=== PATIENT | female | born 1985 | race Caucasian/White ===

== ENCOUNTER 2022-09-08 09:10 | Emergency (ER) | payer MEDICAID, SELFPAY ==
--- NOTE | 2022-09-08 09:12 | ECG_ITS ---
Test Reason : racing heart Blood Pressure : / mmHG Vent. Rate : 072 BPM Atrial Rate : 072 BPM P-R Int : 136 ms QRS Dur : 076 ms QT Int : 398 ms P-R-T Axes : 016 005 052 degrees QTc Int : 435 ms Normal sinus rhythm with sinus arrhythmia Normal ECG When compared with ECG of 22-OCT-2011 18:38, No significant change was found Referred By: Generic ED Physician Electronically Signed By:ZAFAR WU
[2022-09-08 09:21] VITALS: BP 122/74; PULSE 74; RESP 16; TEMP 35.9; O2SAT 98; BMI 27.5
--- NOTE | 2022-09-08 09:33 | ED_ITS ---
HPI - General Adult General Chief complaint: Nausea/Vomiting/Diarrhea Stated complaint: Nausea/Vomiting/Fast heart rate Time Seen by Provider: 09/08/22 09:29 Source: patient Mode of arrival: ambulatory Limitations: no limitations History of Present Illness HPI narrative: Patient is a 37 year old assigned female at with no reported medical history presenting to the emergency department today with nausea and vomiting. Patient states that since last night she has had nausea and vomiting. Patient denies any dizziness, lightheadedness, abdominal pain, fever, chills, blurry vision, double vision, loss of vision, chest pain, difficulty breathing, shortness of breath, back pain, night sweats, pain with urination, increased urinary frequency, increased urinary urgency, blood in her urine or stool, syncope or a near syncopal episode, recent trauma or falls, bowel incontinence, bladder incontinence, bowel retention, bladder retention, or any other complaints at this time. Onset (ago): hour(s) Severity: mild Severity scale (1-10): 2 Relieving factors: none Exacerbating factors: none Associated symptoms: nausea/vomiting Treatments prior to arrival: none Related Data Previous Rx's Medication Instructions Recorded ondansetron 4 mg disintegrating 4 mg PO Q8H 3 days #9 tabs 09/08/22 tablet Allergies Allergy/AdvReac Type Severity Reaction Status Date / Time hydromorphone [Dilaudid] Allergy Unknown hives Verified 05/31/18 00:00 ibuprofen [From MOTRIN] AdvReac Mild STOMACH Unverified 10/26/19 16:24 UPSET From DILAUDID Allergy Mild HIVES Uncoded 10/26/19 16:24 Motrin Allergy Unknown Uncoded 05/31/18 00:00 Review of Systems Constitutional: Constitutional: Reports no additional constitutional complaints, Denies chills, Denies fever(s) and Denies night sweats Eyes: Eyes: Reports no additional eye complaints, Denies blurry vision, Denies change in vision, Denies diplopia, Denies eye discharge, Denies loss of vision and Denies eye pain ENT: Denies dizziness Cardiovascular: Cardiovascular: Reports no additional cardiovascular complaints, Denies chest pain, Denies lightheadedness, Denies Loss of Consciousness and Denies dyspnea Respiratory: Respiratory: Reports no additional respiratory complaints and Denies dyspnea Gastrointestinal: Gastrointestinal: Reports no additional gastrointestinal complaints, Denies abdominal pain, Denies melena, Denies hematochezia, Denies c hange in bowel habits, Denies change in stool character, Reports nausea and Reports vomiting Genitourinary: Genitourinary: Denies hematuria, Denies urinary frequency, Denies dysuria, Denies urinary incontinence, Denies urinary hesitancy and Denies urinary urgency Musculoskeletal: Musculoskeletal: Reports no additional musculoskeletal complaints, Denies numbness and Denies tingling Neurologic: Denies dizziness, Denies loss of vision, Denies numbness and Denie s tingling Psychiatric: Psychiatric: Reports no additional psychiatric complaints Endocrine: Endocrine: Reports no additional endocrine complaints Hematologic/Lymphatic: Hematologic/Lymphatic: Reports no additional hematologic/lymphatic complaints Allergic/Immunologic: Allergic/Immunologic: Reports no additional allergic/immunologic complaints PMFSH Past Medical History Attestation statement: The following information was validated with the patient. Source: old records reviewed and nursing notes reviewed Social History Social History Alcohol intake: never Smoked in Last 30 Days: No Use of substances other than those prescribed or required for medical reasons: Yes Substance Use Type: Marijuana Last Used Substance: Days (ago) Advance Directives: No Advance Directives Information Provided: No Physical Exam ED Vital Signs: Vital Signs - 24 hr 09/08/22 09:21 09/08/22 10:41 Temperature 96.7 F L 98.5 F Pulse Rate 74 65 Respiratory Rate 16 14 Blood Pressure 122/74 124/79 Pulse Oximetry 98 100 Oxygen Delivery Method Room Air Room Air BMI result Body Mass Index 27.5 Const General: cooperative, no acute distress, alert and awake Nutritional Appearance: well nourished Orientation/consciousness: patient oriented x3 Limitations: no limitations [facility] Head: Yes normal to inspection and Yes atraumatic Ears: hearing grossly normal bilaterally and external ears normal General nose exam: Normal external nose present, no nasal discharge noted and no epistaxis Face and sinus: Yes normal facial exam, No abrasion and No laceration Mouth: Normal oral and palatal mucosa present, no drooling and no muffled voice Eyes General: appearance normal, both eyes and all related structures Periorbital: periorbital findings normal Eyelids: Yes eyelids normal Conjunctivae: conjunctivae normal Pupils: Equal, round and reactive pupils present EOM: EOMs intact bilaterally Neck Neck: Yes normal visual inspection, Yes full ROM and Yes no lymphadenopathy Chest Chest palpation & inspection: normal inspection of the chest Resp Effort & Inspection: normal respiratory effort and able to speak in complete sentences Auscultation: clear to auscultation bilaterally Cardio Rate: regular rate Rhythm: regular rhythm GI Inspection: Yes normal to inspection Palpation (GI): Soft to palpation, not firm, nontender and no guarding Neuro General: patient oriented x3 and moves all extremities Cranial nerves: Yes Equal, round and reactive pupils present Cognition (Neuro): normal cognition Motor exam (neuro): 5/5 motor strength present throughout Sensory Exam: Normal double simultaneous stimulation for sensation Coordination: [id number] test normal Extrem General: Yes normal to inspection, Yes full ROM and Yes capillary refill normal Psych Appearance: grossly normal Mental Status: mental status grossly normal Affect: normal affect Attitude: cooperative Thought process: Normal thought process present Thought content: Normal thought content present Insight: Good insight present (Psych) Medications Administered Discontinued Medications Generic Name Dose Route Start Last Admin Trade Name Freq PRN Reason Stop Dose Admin Sodium Chloride 1,000 mls @ 999 mls/hr 09/08/22 09:45 09/08/22 11:16 Ns IV 09/08/22 10:45 Infused .Q1H1M KANDY Infusion Lorazepam 1 mg 09/08/22 09:59 09/08/22 10:06 Lorazepam 2 Mg/Ml Vial IVPUSH 09/08/22 10:00 1 mg ONCE ONE Administration Ondansetron HCl 4 mg 09/08/22 09:35 09/08/22 09:52 Ondansetron Hcl 4 Mg/2 Ml Vial IVPUSH 09/08/22 09:36 4 mg ONCE ONE Administration Medical Decision Making Medical Decision Making [facility] Narrative: Patient is a 37 year old assigned female at with no reported medical history presenting to the emergency department today with nausea and vomiting. Patient's physical exam was unremarkable. Patient's blood work was unremarkable. Patient's urine showed no acute process. I explained my physical exam findings as well as all test results to the patient. I answered all questions asked by the patient. Patient received IV fluids and Zofran which she stated helped her symptoms significantly. I stressed the importance of the patient taking her medication as prescribed. I stressed the importance of the patient following up with her primary care provider. I stressed the importance of the patient returning to the emergency department immediately if her symptoms were to worsen or if she were to develop any dizziness, shortness of breath, difficulty breathing, chest pain, blurry vision, loss of vision, nausea, vomiting, abdomi nal pain, fever, chills, back pain, or any other complaints. Patient verbalized agreement and understanding with this treatment plan and discharge. Differential Diagnosis Differential Diagnoses: The differential diagnosis associated with the presentation includes Nausea Vomiting Gastroenteritis Admission/Observation Consideration of admission/observation: Escalation of care including admission/observation considered Patient would have been admitted to the hospital had her work up had any findings where hospital admission was appropriate and her clinical presentation warranted hospital admission. Lab Data MDM Lab Attestation statement: I reviewed the patient's lab results. My interpretation of these studies and their corresponding values is that they are grossly normal. 09/08/22 09:51 09/08/22 09:51 Labs: Lab Results 09/08/22 09/08/22 09/08/22 Range/Units 09:45 09:51 09:51 WBC 12.0 H (4.8-10.8) X10*3/uL RBC 5.24 (4.20-5.50) X10*6/uL Hgb 13.7 (12.0-16.0) g/dl Hct 41.6 (37.0-47.0) % MCV 79.4 L (80.0-98.0) fL MCH 26.1 L (27.0-33.0) pg MCHC 32.9 (31.0-35.0) g/dl RDW 15.1 (11.0-16.0) % Plt Count 266 (160-400) X10*3/uL MPV 10.9 (9.4-12.3) fL Immature Gran % (Auto) 0.5 H (0.0-0.4) % Neut % (Auto) 75.1 H (45-73) % Lymph % (Auto) 19.2 L (20-40) % Spencer % (Auto) 4.6 (2-11) % Eos % (Auto) 0.2 (0-4) % Baso % (Auto) 0.4 (0-2) % Lymph # (Auto) 2.3 (1.2-4.9) X10*3/uL Spencer # (Auto) 0.6 (0.1-1.2) X10*3/uL Eos # (Auto) 0.0 (0.0-0.4) X10*3/uL Baso # (Auto) 0.1 (0.0-0.2) X10*3/uL Abs Immat Gran (auto) 0.06 H (0.00-0.03) X10*3/uL Absolute Neuts (auto) 9.0 H (2.0-8.3) x10*3/uL Absolute Nucleated RBC 0.000 (0.0-0.012) X10*3/uL Nucleated RBC % (auto) 0.0 (0.0-0.2) /100WBC Sodium 141 (135-145) mmol/L Potassium 3.9 (3.3-5.1) mmol/L Chloride 108 (96-108) mmol/L Carbon Dioxide 20 L (22-29) mmol/L Anion Gap 17 (12-20) BUN 10 (9-16) mg/dL Creatinine 0.76 (0.5-1.4) mg/dL Estim Creat Clear Calc 108.5 Estimated GFR > 60 Random Glucose 89 (60-115) mg/dL Calcium 9.5 (8.4-10.2) mg/dL Total Bilirubin 1.4 H (0.0-1.0) mg/dL AST 14 (5-31) U/L ALT 13 (0-31) U/L Alkaline Phosphatase 63 (39-117) U/L Total Protein 7.4 (6.5-8.0) g/dL Albumin 4.4 (3.5-5.0) g/dL Beta HCG, Quant < 2 mIU/mL Urine Color Urine Appearance Urine pH (5.0-9.0) Ur Specific [place] (1.005-1.025) Urine Protein (Neg-Trace) mg/dL Urine Glucose (UA) (Negative) mg/dL Urine Ketones (Negative) mg/dL Urine Blood (Negative) Urine Nitrite (Negative) Ur Leukocyte Esterase (Negative) Urine RBC (0-2) /HPF Urine WBC (0-5) /HPF Ur Squamous Epith Cells (0-2) /HPF Urine Bacteria (None Seen) Hyaline Casts (0-2) /LPF COVID-19 (JAGDEEP) Negative (Negative) COVID-19 Clin Com See Note 09/08/22 Range/Units 10:39 WBC (4.8-10.8) X10*3/uL RBC (4.20-5.50) X10*6/uL Hgb (12.0-16.0) g/dl Hct (37.0-47.0) % MCV (80.0-98.0) fL MCH (27.0-33.0) pg MCHC (31.0-35.0) g/dl RDW (11.0-16.0) % Plt Count (160-400) X10*3/uL MPV (9.4-12.3) fL Immature Gran % (Auto) (0.0-0.4) % Neut % (Auto) (45-73) % Lymph % (Auto) (20-40) % Spencer % (Auto) (2-11) % Eos % (Auto) (0-4) % Baso % (Auto) (0-2) % Lymph # (Auto) (1.2-4.9) X10*3/uL Spencer # (Auto) (0.1-1.2) X10*3/uL Eos # (Auto) (0.0-0.4) X10*3/uL Baso # (Auto) (0.0-0.2) X10*3/uL Abs Immat Gran (auto) (0.00-0.03) X10*3/uL Absolute Neuts (auto) (2.0-8.3) x10*3/uL Absolute Nucleated RBC (0.0-0.012) X10*3/uL Nucleated RBC % (auto) (0.0-0.2) /100WBC Sodium (135-145) mmol/L Potassium (3.3-5.1) mmol/L Chloride (96-108) mmol/L Carbon Dioxide (22-29) mmol/L Anion Gap (12-20) BUN (9-16) mg/dL Creatinine (0.5-1.4) mg/dL Estim Creat Clear Calc Estimated GFR Random Glucose (60-115) mg/dL Calcium (8.4-10.2) mg/dL Total Bilirubin (0.0-1.0) mg/dL AST (5-31) U/L ALT (0-31) U/L Alkaline Phosphatase (39-117) U/L Total Protein (6.5-8.0) g/dL Albumin (3.5-5.0) g/dL Beta HCG, Quant mIU/mL Urine Color Yellow Urine Appearance Clear Urine pH 7.0 (5.0-9.0) Ur Specific [place] 1.020 (1.005-1.025) Urine Protein 30 (1+) H (Neg-Trace) mg/dL Urine Glucose (UA) Negative (Negative) mg/dL Urine Ketones 80 (Negative) mg/dL Urine Blood Trace H (Negative) Urine Nitrite Negative (Negative) Ur Leukocyte Esterase Trace H (Negative) Urine RBC 11-20 H (0-2) /HPF Urine WBC 0-5 (0-5) /HPF Ur Squamous Epith Cells 0-2 (0-2) /HPF Urine Bacteria None Seen (None Seen) Hyaline Casts 0-2 (0-2) /LPF COVID-19 (JAGDEEP) (Negative) COVID-19 Clin Com Discharge Plan Discharge Clinical Impression: Gastroenteritis Patient Disposition: Home, Self-Care Instructions: Gastroenteritis (DC) Additional Instructions: Follow up with your primary care provider. Return to the emergency department immediately if your symptoms worsen or if you develop any dizziness, shortness of breath, difficulty breathing, chest pain, blurry vision, loss of vision, nausea, vomiting, abdominal pain, fever, chills, back pain, or any other complaints. Prescriptions: New ondansetron 4 mg tablet,disintegrating 4 mg PO Q8H 3 Days Qty: 9 0RF Referrals: [facility] Family [facility] [Provider Group] (Call to establish and follow up with a primary care provider. If you already have a primary care provider, please follow up with them.) [facility] [Provider Group] (Call to establish and follow up with a primary care provider. If you already have a primary care provider, please follow up with them.) [facility] Primary [facility] [Provider Group] (Call to establish and follow up with a primary care provider. If you already have a primary care provider, please follow up with them.) Interventions: ED Discharge Assessment Last Done: 09/08/22 11:24 Discharge Date/Time: 09/08/22 11:24 Print Language: Citizen Of [place]
[2022-09-08] MEDS: ondansetron HCL 4 MG/2 ML VIAL IVPUSH (09:52)
[2022-09-08] MEDS: 0.9 % Sodium Chloride 1,000 ML 999 ML IV (09:52)
--- NOTE | 2022-09-08 09:57 | PC.NURSE ---
pt a&ox3. respirations even and unlabored. abdomen soft non tender with hypoactive bowel sounds in all four quadrants. pt reports nausea since yesterday with three episodes of vomiting. denies vomiting currently. pt reports palpitations. pt normal sinus on tele. denies chest pains. pt reporting anxiety MD aware.
[2022-09-08 09:58] LABS: MANUAL DIFF FLAG NO
[2022-09-08 10:00] LABS: Basophils Absolute Auto 0.1 X10*3/uL (0.0-0.2); Basophils Percent Auto 0.4 % (0-2); Eosinophils Percent Auto 0.2 % (0-4); Hematocrit 41.6 % (37.0-47.0); Hemoglobin 13.7 g/dl (12.0-16.0); Imm Gran Abs Auto 0.06 X10*3/uL (0.00-0.03); Imm Gran Pct Auto 0.5 % (0.0-0.4); Lymphocytes Absolute Auto 2.3 X10*3/uL (1.2-4.9); Lymphocytes Percent Auto 19.2 % (20-40); Mean Corpuscular HGB Conc 32.9 g/dl (31.0-35.0); Mean Corpuscular Hemoglobin 26.1 pg (27.0-33.0); Mean Corpuscular Volume 79.4 fL (80.0-98.0); Mean Platelet Volume 10.9 fL (9.4-12.3); Monocytes Absolute Auto 0.6 X10*3/uL (0.1-1.2); Monocytes Percent Auto 4.6 % (2-11); Neutrophils Percent Auto 75.1 % (45-73); Platelet Count 266 X10*3/uL (160-400); Red Blood Count 5.24 X10*6/uL (4.20-5.50); Red Cell Distribution Width 15.1 % (11.0-16.0)
[2022-09-08] MEDS: LORazepam 2 MG/ML VIAL 1 MG IVPUSH (10:06)
[2022-09-08 10:13] LABS: COVID-19 Test Negative (Negative); IDNOW Serial# BCCEAD1C
[2022-09-08 10:35] LABS: Alanine Aminotransferase 13 U/L (0-31); Albumin Level 4.4 g/dL (3.5-5.0); Alkaline Phosphatase 63 U/L (39-117); Anion Gap 17 (12-20); Aspartate Amino Transferase 14 U/L (5-31); Bilirubin Total 1.4 mg/dL (0.0-1.0); Blood Urea Nitrogen 10 mg/dL (9-16); Calcium 9.5 mg/dL (8.4-10.2); Carbon Dioxide 20 mmol/L (22-29); Chloride 108 mmol/L (96-108); Creatinine Clr Calc Pharmacy 108.5; Estimated Glomerular Filt Rate > 60; Glucose Random 89 mg/dL (60-115); HCG Quantitative < 2 mIU/mL; Potassium 3.9 mmol/L (3.3-5.1); Sodium 141 mmol/L (135-145); Total Protein 7.4 g/dL (6.5-8.0)
[2022-09-08 10:41] VITALS: BP 124/79; PULSE 65; RESP 14; TEMP 36.9; O2SAT 100
[2022-09-08 11:06] LABS: Appearance Urine Clear; Color Urine Yellow; Glucose Urine UA Negative (Negative); Leukocyte Esterase Urine Trace (Negative); Nitrite Urine Negative (Negative); UMIC TRIGGER UACC YES; Urine Blood Trace (Negative); Urine Ketones 80 mg/dL (Negative); Urine Protein 30 (1+) mg/dL (Neg-Trace)
[2022-09-08 11:12] LABS: Bacteria Urine None Seen (None Seen); Hyaline Casts Urine 0-2 /LPF (0-2); Squamous Epithelial Cell Urine 0-2 /HPF (0-2); WBC Urine 0-5 /HPF (0-5)
== END 2022-09-08 11:24 | disposition home or self-care (01) ==
PROVIDERS: Physician Assistant Medical; Emergency Provider Emergency Medicine
DX: K52.9 Noninfective gastroenteritis and colitis, unspecified (principal); Z20.822 Contact with and (suspected) exposure to COVID-19; R11.2 Nausea with vomiting, unspecified
CPT/HCPCS: 36415; 80053; 81001; 81003; 84702; 85025; 87635; 93005; 96361; 96374; 96375; 99284; J2060; J2405

== ENCOUNTER → 2022-09-08 09:12 | Outpatient (BNV) | payer MEDICAID, SELFPAY | PROVIDERS: Emergency Provider Emergency Medicine; Visit Provider Internal Medicine | DX: R00.0 Tachycardia, unspecified (principal) | CPT/HCPCS: 93010 ==

== ENCOUNTER 2022-09-09 11:45 | Day surgery (SDC) | payer MEDICAID, SELFPAY ==
--- NOTE | ~2022-09-09 | CT_ITS ---
EXAMINATION: CT ABDOMEN AND PELVIS WITH CONTRAST CLINICAL INFORMATION: Nausea and vomiting COMPARISON: None available. TECHNIQUE: Multidetector volumetric images were obtained from the superior aspect of the liver through the pubic symphysis following administration 85 mL of Omnipaque 350 intravenous contrast. Sagittal and coronal reformatted images were obtained on the technologist's workstation. Oral contrast: No This CT examination was performed using dose optimization techniques as appropriate, variously including the following: *Automated exposure control *Adjustment of mA and/or kV according to patient size (this includes techniques or standardized protocols for targeted exams where dose is matched to indication/reason for exam; i.e. extremities or head) *Use of iterative reconstruction technique DLP: 628 mGy-cm FINDINGS: LUNG BASES: The visualized lung bases are unremarkable. LIVER, GALLBLADDER, AND BILIARY TREE: A few tiny cysts are seen less than 3 mm in the right lobeLiver otherwise normal. No suspicious masses. No intrahepatic biliary dilatation. The gallbladder is unremarkable with no evidence of radiopaque gallstones, gallbladder wall thickening, or obvious pericholecystic inflammatory changes. PANCREAS: Unremarkable. SPLEEN: Unremarkable. ADRENAL GLANDS: Unremarkable. KIDNEYS AND URETERS: There is a 5 mm stone in distal right ureter causing mild right hydroureter and moderate right hydronephrosis. There are multiple punctate bilateral nephroliths measuring up to 5 mm. No evidence for left hydronephrosis. There are no suspicious renal masses nor is there perinephric fluid collections seen. BLADDER: Unremarkable. GASTROINTESTINAL TRACT: Mild sigmoid diverticulosis. No diverticulitis. There is no bowel obstruction or right or left lower quadrant inflammatory change. There is a surgical clip at the base of the cecum. ABDOMINAL WALL: No significant hernia is appreciated. LYMPH NODES: Normal. VASCULAR: Unremarkable. PELVIC VISCERA: Uterus and adnexa are unremarkable. OSSEOUS STRUCTURES: Unremarkable. CT/CT abdomen pelvis w IV con IMPRESSION: 5 mm stone in the distal right ureter causing right-sided hydronephrosis.. Fleischner guidelines were followed.
--- NOTE | ~2022-09-09 | FL_ITS ---
EXAMINATION: XR FLUOROSCOPY WITH IMAGES CLINICAL INFORMATION: Right ureteral stone. COMPARISON: ET of the abdomen and pelvis 09/09/2022 TECHNIQUE: Fluoroscopy Supervised By: Dr. Aquiles Irwin. Fluoroscopy Time: 13.3 seconds. Cumulative Dose: 3.61 mGy. DAP: None. Images: 2. FINDINGS: Images demonstrate a right internal ureteral stent in satisfactory addition. There is mild right hydronephrosis. There is contrast in the bladder. FL/FL guidance in OR IMPRESSION: Fluoroscopy guidance for right internal ureteral stent placement.
[2022-09-09 11:56] VITALS: BP 146/98; PULSE 142; RESP 20; TEMP 36.3; O2SAT 97; BMI 28.0
--- NOTE | 2022-09-09 12:08 | ED_ITS ---
HPI - General Adult General Chief complaint: Abdominal Pain Stated complaint: ? kidney stone Time Seen by Provider: 09/09/22 12:04 Source: patient Mode of arrival: ambulatory Limitations: no limitations History of Present Illness HPI narrative: Patient is a 37 year old assigned female at with no reported medical history presenting to the emergency department today with right flank pain. Patient states that yesterday she was seen here for nausea and vomiting but did not have any pain. Patient states that she is back now because she is having right flank pain. Patient denies any dizziness, lightheadedness, fever, chills, blurry vision, double vision, loss of vision, chest pain, difficulty breathing, shortness of breath, back pain, night sweats, pain with urination, increased urinary frequency, increased urinary urgency, blood in her urine or stool, syncope or a near syncopal episode, recent trauma or falls, bowel incontinence, bladder incontinence, bowel retention, bladder retention, or any other co mplaints at this time. Onset (ago): day(s) (1) Location: right (flank) Radiation: non-radiation Severity: moderate Severity scale (1-10): 5 Quality: constant Pain Consistency: constant Relieving factors: none Exacerbating factors: none Associated symptoms: nausea/vomiting Treatments prior to arrival: none Related Data Home Medications Medication Instructions Recorded Confirmed No Known Home Meds 09/09/22 09/09/22 Allergies Allergy/AdvReac Type Severity Reaction Status Date / Time hydromorphone [Dilaudid] Allergy Unknown hives Verified 05/31/18 00:00 metoclopramide [From Reglan] Allergy Unknown Verified 09/09/22 13:13 ibuprofen [From MOTRIN] AdvReac Mild STOMACH Unverified 10/26/19 16:24 UPSET From DILAUDID Allergy Mild HIVES Uncoded 10/26/19 16:24 Motrin Allergy Unknown Unknown Uncoded 09/09/22 13:13 Review of Systems Constitutional: Constitutional: Reports no additional constitutional complaints, Denies chills, Denies fever(s) and Denies night sweats Eyes: Eyes: Reports no additional eye complaints, Denies blurry vision, Denies change in vision, Denies diplopia, Denies eye discharge, Denies loss of vision and Denies eye pain ENT: Denies dizziness Cardiovascular: Cardiovascular: Reports no additional cardiovascular complaints, Denies chest pain, Denies lightheadedness, Denies Loss of Consciousness and Denies dyspnea Respiratory: Respiratory: Reports no additional respiratory complaints and Denies dyspnea Gastrointestinal: Gastrointestinal: Reports no additional gastrointestinal complaints, Denies abdominal pain, Denies melena, Denies hematochezia, Denies change in bowel habits, Denies change in stool character, Reports nausea and Reports vomiting Genitourinary: Genitourinary: Denies hematuria, Denies urinary frequency, Denies dysuria, Reports flank pain (right), Denies urinary incontinence, Denies urinary hesitancy and Denies urinary urgency Musculoskeletal: Musculoskeletal: Reports no additional musculoskeletal complaints, Denies numbness and Denies tingling Neurologic: Denies dizziness, Denies loss of vision, Denies numbness and Denies tingling Psychiatric: Psychiatric: Reports no additional psychiatric complaints Endocrine: Endocrine: Reports no additional endocrine complaints Hematologic/Lymphatic: Hematologic/Lymphatic: Reports no additional hematologic/lymphatic complaints Allergic/Immunologic: Allergic/Immunologic: Reports no additional allergic/immunologic complaints PMFSH Past Medical History Attestation statement: The following information was validated with the patient. Source: old records reviewed and nursing notes reviewed Social History Social History Alcohol intake: never Use of substances other than those prescribed or required for medical reasons: Yes Substance Use Type: Marijuana Substance Use Frequency: Occasionally Advance Directives: No Physical Exam ED Vital Signs: Vital Signs - 24 hr 09/09/22 11:56 09/09/22 13:00 Temperature 97.3 F 98.4 F Pulse Rate 142 H 101 H Respiratory Rate 20 20 Blood Pressure 146/98 H 137/70 Pulse Oximetry 97 100 Oxygen Delivery Method Room Air Room Air BMI result Body Mass Index 28.0 Const General: cooperative, no acute distress, alert and awake Nutritional Appearance: well nourished Orientation/consciousness: patient oriented x3 Limitations: no limitations HENMT Head: Yes normal to inspection and Yes atraumatic Ears: hearing grossly normal bilaterally and external ears normal General nose exam: Normal external nose present, no nasal discharge noted and no epistaxis Face and sinus: Yes normal facial exam, No abrasion and No laceration Mouth: Normal oral and palatal mucosa present, no drooling and no muffled voice Eyes General: appearance normal, both eyes and all related structures Periorbital: periorbital findings normal Eyelids: Yes eyelids normal Conjunctivae: conjunctivae normal Pupils: Equal, round and reactive pupils present EOM: EOMs intact bilaterally Neck Neck: Yes normal visual inspection, Yes full ROM and Yes no lymphadenopathy Chest Chest palpation & inspection: normal inspection of the chest Resp Effort & Inspection: normal respiratory effort and able to speak in complete sentences Auscultation: clear to auscultation bilaterally Cardio Rate: tachycardic Rhythm: regular rhythm GI Inspection: Yes normal to inspection Palpation (GI): Soft to palpation, not firm, nontender and no guarding General: Yes CVA tenderness on the right Back/Spine/Pelvis Back: CVA tenderness Neuro General: patient oriented x3 and moves all extremities Cranial nerves: Yes Equal, round and reactive pupils present Cognition (Neuro): normal cognition Motor exam (neuro): 5/5 motor strength present throughout Sensory Exam: Normal double simultaneous stimulation for sensation Coordination: [id number] test normal Extrem General: Yes normal to inspection, Yes full ROM and Yes capillary refill normal Psych Appearance: grossly normal Mental Status: mental status grossly normal Affect: normal affect Attitude: cooperative Thought process: Normal thought process present Thought content: Normal thought content present Insight: Good insight present (Psych) Medications Administered Discontinued Medications Generic Name Dose Route Start Last Admin Trade Name Freq PRN Reason Stop Dose Admin Haloperidol Lactate 5 mg 09/09/22 12:52 09/09/22 13:02 Haloperidol Lactate 5 Mg/Ml Vial IM 09/09/22 12:53 5 mg ONCE ONE Administration Sodium Chloride 1,000 mls @ 999 mls/hr 09/09/22 12:02 09/09/22 13:05 Ns IV 09/09/22 13:02 Infused .Q1H1M ONE Infusion Iohexol 100 ml 09/09/22 13:48 09/09/22 13:49 Iohexol 350 Mg/Ml 100 Ml Infus..Btl IV 09/09/22 13:49 85 ml ONCE ONE Administration Ketorolac Tromethamine 15 mg 09/09/22 12:05 09/09/22 12:21 Ketorolac Tromethamine 15 Mg/Ml Vial IVPUSH 09/09/22 12:06 15 mg ONCE ONE Administration Lorazepam 1 mg 09/09/22 12:05 09/09/22 12:23 Lorazepam 2 Mg/Ml Vial IVPUSH 09/09/22 12:06 1 mg ONCE ONE Administration Morphine Sulfate 4 mg 09/09/22 12:02 09/09/22 12:13 Morphine Sulfate 4 Mg/Ml Cartridge IVPUSH 09/09/22 12:03 4 mg ONCE ONE Administration Protocol Ondansetron HCl 4 mg 09/09/22 12:02 09/09/22 12:13 Ondansetron Hcl 4 Mg/2 Ml Vial IVPUSH 09/09/22 12:03 4 mg ONCE ONE Administration Medical Decision Making Medical Decision Making MDM Narrative: Patient is a 37 year old assigned female at with no reported medical history of presenting to the emergency department today with right flank pain. Patient's physical exam was as noted in the physical exam portion of this chart. Patient's blood work showed a WBC count of 14.4. This elevation is likely due to a stress reaction. The rest of the patient's labs are grossly normal. Patient's CT abdomen/pelvis showed a 5mm right renal stone with hydronephrosis. Patient's urine showed blood but was otherwise unremarkable. I spoke with urology stone planer who recommended the patient remain NPO and he will stent the patient this afternoon. I explained my physical exam findings as well as all test results to the patient. I answered all questions asked by the patient. Patient verbalized agreement and understanding with this treatment plan and transfer to the OR for stent placement by Dr. Irwin. Differential Diagnosis Differential Diagnoses: The differential diagnosis associated with the presentation includes Kidney stone UTI Abdominal pain Nausea Flank pain Vomiting Admission/Observation Consideration of admission/observation: Escalation of care including admission/observation considered Patient is going to have a stent placed by urologist Dr. Irwin and it is planned for her to be discharged after the procedure. Consult Healthcare Provider Management of the patient was discussed with: Ash Handler (spoke to the urologist as noted in the MDM portion in the note) Lab Data MDM Lab Attestation statement: I reviewed the patient's lab results. My interpretation of these results are in the MDM portion of this note. 09/09/22 12:16 09/09/22 12:16 Labs: Lab Results 09/09/22 09/09/22 09/09/22 Range/Units 12:16 12:16 13:07 WBC 14.4 H (4.8-10.8) X10*3/uL RBC 5.47 (4.20-5.50) X10*6/uL Hgb 14.1 (12.0-16.0) g/dl Hct 42.8 (37.0-47.0) % MCV 78.2 L (80.0-98.0) fL MCH 25.8 L (27.0-33.0) pg MCHC 32.9 (31.0-35.0) g/dl RDW 14.9 (11.0-16.0) % Plt Count 294 (160-400) X10*3/uL MPV 11.1 (9.4-12.3) fL Immature Gran % (Auto) 0.5 H (0.0-0.4) % Neut % (Auto) 66.0 (45-73) % Lymph % (Auto) 25.9 (20-40) % [place] % (Auto) 6.5 (2-11) % Eos % (Auto) 0.6 (0-4) % Baso % (Auto) 0.5 (0-2) % Lymph # (Auto) 3.7 (1.2-4.9) X10*3/uL [place] # (Auto) 0.9 (0.1-1.2) X10*3/uL Eos # (Auto) 0.1 (0.0-0.4) X10*3/uL Baso # (Auto) 0.1 (0.0-0.2) X10*3/uL Abs Immat Gran (auto) 0.07 H (0.00-0.03) X10*3/uL Absolute Neuts (auto) 9.5 H (2.0-8.3) x10*3/uL Absolute Nucleated RBC 0.000 (0.0-0.012) X10*3/uL Nucleated RBC % (auto) 0.0 (0.0-0.2) /100WBC Sodium 140 (135-145) mmol/L Potassium 3.7 (3.3-5.1) mmol/L Chloride 110 H (96-108) mmol/L Carbon Dioxide 17 L (22-29) mmol/L Anion Gap 17 (12-20) BUN 13 (9-16) mg/dL Creatinine 0.84 (0.5-1.4) mg/dL Estim Creat Clear Calc 98.9 Estimated GFR > 60 Random Glucose 101 (60-115) mg/dL Calcium 9.8 (8.4-10.2) mg/dL Total Bilirubin 1.0 (0.0-1.0) mg/dL Direct Bilirubin 0.3 (0.0-0.5) mg/dL AST 13 (5-31) U/L ALT 12 (0-31) U/L Alkaline Phosphatase 62 (39-117) U/L Total Protein 7.6 (6.5-8.0) g/dL Albumin 4.5 (3.5-5.0) g/dL Lipase 14 (8-78) U/L Urine Color Yellow Urine Appearance Clear Urine pH 6.5 (5.0-9.0) Ur Specific [place] 1.015 (1.005-1.025) Urine Protein Trace (Neg-Trace) mg/dL Urine Glucose (UA) Negative (Negative) mg/dL Urine Ketones 15 (Negative) mg/dL Urine Blood Moderate (2+) H (Negative) Urine Nitrite Negative (Negative) Ur Leukocyte Esterase Trace H (Negative) Urine RBC >20 H (0-2) /HPF Urine WBC 0-5 (0-5) /HPF Ur Squamous Epith Cells 3-5 (0-2) /HPF Urine Bacteria None Seen (None Seen) Hyaline Casts 0-2 (0-2) /LPF Urine Test (NEGATIVE) 09/09/22 Range/Units 13:07 WBC (4.8-10.8) X10*3/uL RBC (4.20-5.50) X10*6/uL Hgb (12.0-16.0) g/dl Hct (37.0-47.0) % MCV (80.0-98.0) fL MCH (27.0-33.0) pg MCHC (31.0-35.0) g/dl RDW (11.0-16.0) % Plt Count (160-400) X10*3/uL MPV (9.4-12.3) fL Immature Gran % (Auto) (0.0-0.4) % Neut % (Auto) (45-73) % Lymph % (Auto) (20-40) % [place] % (Auto) (2-11) % Eos % (Auto) (0-4) % Baso % (Auto) (0-2) % Lymph # (Auto) (1.2-4.9) X10*3/uL [place] # (Auto) (0.1-1.2) X10*3/uL Eos # (Auto) (0.0-0.4) X10*3/uL Baso # (Auto) (0.0-0.2) X10*3/uL Abs Immat Gran (auto) (0.00-0.03) X10*3/uL Absolute Neuts (auto) (2.0-8.3) x10*3/uL Absolute Nucleated RBC (0.0-0.012) X10*3/uL Nucleated RBC % (auto) (0.0-0.2) /100WBC Sodium (135-145) mmol/L Potassium (3.3-5.1) mmol/L Chloride (96-108) mmol/L Carbon Dioxide (22-29) mmol/L Anion Gap (12-20) BUN (9-16) mg/dL Creatinine (0.5-1.4) mg/dL Estim Creat Clear Calc Estimated GFR Random Glucose (60-115) mg/dL Calcium (8.4-10.2) mg/dL Total Bilirubin (0.0-1.0) mg/dL Direct Bilirubin (0.0-0.5) mg/dL AST (5-31) U/L ALT (0-31) U/L Alkaline Phosphatase (39-117) U/L Total Protein (6.5-8.0) g/dL Albumin (3.5-5.0) g/dL Lipase (8-78) U/L Urine Color Urine Appearance Urine pH (5.0-9.0) Ur Specific [place] (1.005-1.025) Urine Protein (Neg-Trace) mg/dL Urine Glucose (UA) (Negative) mg/dL Urine Ketones (Negative) mg/dL Urine Blood (Negative) Urine Nitrite (Negative) Ur Leukocyte Esterase (Negative) Urine RBC (0-2) /HPF Urine WBC (0-5) /HPF Ur Squamous Epith Cells (0-2) /HPF Urine Bacteria (None Seen) Hyaline Casts (0-2) /LPF Urine Test NEGATIVE (NEGATIVE) Independent Interpretation I performed an independent interpretation of an: CT Scan Interpretation: My interpretation is in agreement with the radiologist's impression of this imaging study. EXAMINATION: CT ABDOMEN AND PELVIS WITH CONTRAST? CLINICAL INFORMATION: Nausea and vomiting? COMPARISON: None available. TECHNIQUE: Multidetector volumetric images were obtained from the superior aspect of the liver through the pubic symphysis following administration 85 mL of Omnipaque 350 intravenous contrast. Sagittal and coronal reformatted images were obtained on the technologist's workstation.? Oral contrast: No This CT examination was performed using dose optimization techniques as appropriate, variously including the following: *Automated exposure control *Adjustment of mA and/or kV according to patient size (this includes techniques or standardized protocols for targeted exams where dose is matched to indication/reason for exam; i.e. extremities or head) *Use of iterative reconstruction technique DLP: 628 mGy-cm FINDINGS: LUNG BASES: The visualized lung bases are unremarkable.? LIVER, GALLBLADDER, AND BILIARY TREE: A few tiny cysts are seen less than 3 mm in the right lobeLiver otherwise normal. No suspicious masses. No intrahepatic biliary dilatation. ?The gallbladder is unremarkable with no evidence of radiopaque gallstones, gallbladder wall thickening, or obvious pericholecystic inflammatory changes.? PANCREAS: Unremarkable.? SPLEEN: Unremarkable.? ADRENAL GLANDS: Unremarkable.? KIDNEYS AND URETERS: There is a 5 mm stone in distal right ureter causing mild right hydroureter and moderate right hydronephrosis. There are multiple punctate bilateral nephroliths measuring up to 5 mm. No evidence for left hydronephrosis. There are no suspicious renal masses nor is there perinephric fluid collections seen. BLADDER: Unremarkable.? GASTROINTESTINAL TRACT: Mild sigmoid diverticulosis. No diverticulitis. There is no bowel obstruction or right or left lower quadrant inflammatory change. There is a surgical clip at the base of the cecum. ? ABDOMINAL WALL: No significant hernia is appreciated.? LYMPH NODES: Normal. VASCULAR: Unremarkable. PELVIC VISCERA: Uterus and adnexa are unremarkable.? OSSEOUS STRUCTURES: Unremarkable.? CT/CT abdomen pelvis w IV con IMPRESSION: 5 mm stone in the distal right ureter causing right-sided hydronephrosis.. Fleischner guidelines were followed. Dictated By: Luis Enrique Monreal MD Signed By: Electronically signed by Luis Enrique Monreal MD 09/09/22 1508 Radiology Impression Discussion of test interpretation with radiology: I have reviewed the radiologist's reading. Critical Care Time Critical Care Time Critical Care Time: Yes Total Critical Care Time: 30 Attestation: I spent 30 minutes of Critical Care Time with this patient. This does not include time spent on separately reported billable procedures. Discharge Plan Discharge Clinical Impression: Ingrown nail Transfer Details: To OR with Dr. Irwin for stent placement. Prescriptions: No Action ondansetron 4 mg tablet,disintegrating 4 mg PO Q8H 3 Days Qty: 9 0RF Interventions: ED Discharge Assessment Last Done: 09/09/22 13:29
[2022-09-09] MEDS: ondansetron HCL 4 MG/2 ML VIAL IVPUSH (12:13)
[2022-09-09] MEDS: Morphine Sulfate 4 MG/ML CARTRIDGE IVPUSH (12:13)
[2022-09-09] MEDS: 0.9 % Sodium Chloride 1,000 ML 999 ML IV (12:13)
[2022-09-09 12:19] LABS: MANUAL DIFF FLAG NO
[2022-09-09 12:21] LABS: Basophils Absolute Auto 0.1 X10*3/uL (0.0-0.2); Basophils Percent Auto 0.5 % (0-2); Eosinophils Absolute Auto 0.1 X10*3/uL (0.0-0.4); Eosinophils Percent Auto 0.6 % (0-4); Hematocrit 42.8 % (37.0-47.0); Hemoglobin 14.1 g/dl (12.0-16.0); Imm Gran Abs Auto 0.07 X10*3/uL (0.00-0.03); Imm Gran Pct Auto 0.5 % (0.0-0.4); Lymphocytes Absolute Auto 3.7 X10*3/uL (1.2-4.9); Lymphocytes Percent Auto 25.9 % (20-40); Mean Corpuscular HGB Conc 32.9 g/dl (31.0-35.0); Mean Corpuscular Hemoglobin 25.8 pg (27.0-33.0); Mean Corpuscular Volume 78.2 fL (80.0-98.0); Mean Platelet Volume 11.1 fL (9.4-12.3); Monocytes Absolute Auto 0.9 X10*3/uL (0.1-1.2); Monocytes Percent Auto 6.5 % (2-11); Neutrophils Absolute Auto 9.5 x10*3/uL (2.0-8.3); Platelet Count 294 X10*3/uL (160-400); Red Blood Count 5.47 X10*6/uL (4.20-5.50); Red Cell Distribution Width 14.9 % (11.0-16.0); White Blood Count 14.4 X10*3/uL (4.8-10.8)
[2022-09-09] MEDS: Ketorolac Tromethamine 15 MG/ML VIAL IVPUSH (12:21)
[2022-09-09] MEDS: LORazepam 2 MG/ML VIAL 1 MG IVPUSH (12:23)
[2022-09-09 12:41] LABS: Alanine Aminotransferase 12 U/L (0-31); Albumin Level 4.5 g/dL (3.5-5.0); Alkaline Phosphatase 62 U/L (39-117); Anion Gap 17 (12-20); Aspartate Amino Transferase 13 U/L (5-31); Bilirubin Direct 0.3 mg/dL (0.0-0.5); Blood Urea Nitrogen 13 mg/dL (9-16); Calcium 9.8 mg/dL (8.4-10.2); Carbon Dioxide 17 mmol/L (22-29); Chloride 110 mmol/L (96-108); Creatinine Clr Calc Pharmacy 98.9; Estimated Glomerular Filt Rate > 60; Glucose Random 101 mg/dL (60-115); Lipase 14 U/L (8-78); Potassium 3.7 mmol/L (3.3-5.1); Sodium 140 mmol/L (135-145); Total Protein 7.6 g/dL (6.5-8.0)
[2022-09-09 13:00] VITALS: BP 137/70; PULSE 101; RESP 20; TEMP 36.9; O2SAT 100
[2022-09-09] MEDS: Haloperidol Lactate 5 MG/ML VIAL IM (13:02)
[2022-09-09 13:20] LABS: Appearance Urine Clear; Color Urine Yellow; Glucose Urine UA Negative (Negative); Leukocyte Esterase Urine Trace (Negative); Nitrite Urine Negative (Negative); PH 6.5 (5.0-9.0); Specific Gravity - Urine 1.015 (1.005-1.025); UMIC TRIGGER UACC YES; Urine Blood Moderate (2+) (Negative); Urine Ketones 15 mg/dL (Negative); Urine Protein Trace mg/dL (Neg-Trace)
[2022-09-09 13:22] LABS: UPreg QC Valid YES; Urine Pregnancy NEGATIVE (NEGATIVE)
[2022-09-09 13:23] LABS: Bacteria Urine None Seen (None Seen); Hyaline Casts Urine 0-2 /LPF (0-2); RBC Urine >20 /HPF (0-2); WBC Urine 0-5 /HPF (0-5)
[2022-09-09] MEDS: iohexoL 350 MG/ML 100 ML INFUS..BTL IV (13:49)
[2022-09-09] MEDS: levoFLOXacin/D5W 500 MG/100 ML PIGGYBACK 100 MG IV (15:40)
--- NOTE | 2022-09-09 15:41 | PHA.MEDREC ---
Pharmacy Consult ? Medication Reconciliation Pharmacy has completed the medication reconciliation. Patient reports no medications. Kayy Damon, ElsyD
--- NOTE | 2022-09-09 16:55 | P.CNUR_ITS ---
History of Present Illness Consult details Consult date: 09/09/22 Narrative: Consulting complaint right distal ureteric stone with hydronephrosis 37-year-old female Present to emergency department with 24 hour history right-sided flank pain Had been seen in ER for nausea and vomiting but at that point had no pain Denies fever, chills, hematuria No prior stone history Pain 5/10 moderate nonradiating Imaging - There is a 5 mm stone in distal right ureter causing mild right hydroureter and moderate right hydronephrosis. There are multiple punctate bilateral nephroliths measuring up to 5 mm. Laboratories WBC 14.4, calcium 9.8, creatinine 0.8 Recommendation - cystoscopy, right retrograde, right stent placement Review of Systems Constitutional: Constitutional: Reports as per HPI and Reports no additional constitutional complaints Cardiovascular: Cardiovascular: Reports as per HPI and Reports no additional cardiovascular complaints Respiratory: Respiratory: Reports as per HPI and Reports no additional respiratory complaints Gastrointestinal: Gastrointestinal: Reports as per HPI and Reports no additional gastrointestinal complaints Genitourinary: Genitourinary: Reports as per HPI Musculoskeletal: Musculoskeletal: Reports no additional musculoskeletal complaints and Reports as per HPI Neurologic: Reports system reviewed and no additional complaints, except as documented and Reports as per HPI [facility] Social History Social History Alcohol intake: never Use of substances other than those prescribed or required for medical reasons: Yes Substance Use Type: Marijuana Substance Use Frequency: Occasionally Advance Directives: No Meds Allergies Allergy/AdvReac Type Severity Reaction Status Date / Time hydromorphone [Dilaudid] Allergy Unknown hives Verified 05/31/18 00:00 metoclopramide [From Reglan] Allergy Unknown Verified 09/09/22 13:13 ibuprofen [From MOTRIN] AdvReac Mild STOMACH Unverified 10/26/19 16:24 UPSET From DILAUDID Allergy Mild HIVES Uncoded 10/26/19 16:24 Motrin Allergy Unknown Unknown Uncoded 09/09/22 13:13 Home Medications Medication Instructions Recorded Confirmed Last Taken Type No Known Home Meds 09/09/22 09/09/22 Unknown History Physical Exam Vital Signs: Vital Signs: Last Vital Signs Temp 98.4 F 09/09/22 13:00 Pulse 101 H 09/09/22 13:00 Resp 20 09/09/22 13:00 BP 137/70 09/09/22 13:00 Pulse Ox 100 09/09/22 13:00 O2 Del Method Room Air 09/09/22 13:00 BMI result Body Mass Index 28.0 Const: General: cooperative, healthy appearing, comfortable and no acute distress Orientation/consciousness: patient oriented x3 HEENT: Face and sinus: Yes normal facial exam Mouth: moist mucous membranes Neck: Neck: Yes normal visual inspection, Yes full ROM and Yes trachea midline Chest: Chest palpation & inspection: normal inspection of the chest Resp: Effort & Inspection: normal respiratory effort, able to speak in complete sentences and no respiratory distress GI: Inspection: Yes normal to inspection Back/Spine/Pelvis: Cervical Spine: normal cervical lordosis Thoracic/Lumbar Spine: thoracic and lumbar spine normal to inspection Skin: General skin exam: no rashes or lesions noted Neuro: General: patient oriented x3, tone normal and moves all extremities Extrem: General: Yes normal to inspection and Yes capillary refill normal Results Labs 09/09/22 12:16 09/09/22 12:16 Labs: Abnormal lab results 09/09/22 09/09/22 09/09/22 Range/Units 12:16 12:16 13:07 WBC 14.4 H (4.8-10.8) X10*3/uL MCV 78.2 L (80.0-98.0) fL MCH 25.8 L (27.0-33.0) pg Immature Gran % (Auto) 0.5 H (0.0-0.4) % Abs Immat Gran (auto) 0.07 H (0.00-0.03) X10*3/uL Absolute Neuts (auto) 9.5 H (2.0-8.3) x10*3/uL Chloride 110 H (96-108) mmol/L Carbon Dioxide 17 L (22-29) mmol/L Urine Blood Moderate (2+) H (Negative) Ur Leukocyte Esterase Trace H (Negative) Urine RBC >20 H (0-2) /HPF Short CBC 09/09/22 Range/Units 12:16 WBC 14.4 H (4.8-10.8) X10*3/uL Hgb 14.1 (12.0-16.0) g/dl Hct 42.8 (37.0-47.0) % Plt Count 294 (160-400) X10*3/uL BMP 09/09/22 12:16 Sodium 140 Potassium 3.7 Chloride 110 H Carbon Dioxide 17 L BUN 13 Creatinine 0.84 Calcium 9.8 Liver Function 09/09/22 Range/Units 12:16 Total Bilirubin 1.0 (0.0-1.0) mg/dL Direct Bilirubin 0.3 (0.0-0.5) mg/dL AST 13 (5-31) U/L ALT 12 (0-31) U/L Alkaline Phosphatase 62 (39-117) U/L Albumin 4.5 (3.5-5.0) g/dL Urine 09/09/22 09/09/22 Range/Units 13:07 13:07 Urine Color Yellow Urine Appearance Clear Urine pH 6.5 (5.0-9.0) Ur Specific [place] 1.015 (1.005-1.025) Urine Protein Trace (Neg-Trace) mg/dL Urine Glucose (UA) Negative (Negative) mg/dL Urine Test NEGATIVE (NEGATIVE) All other labs normal. Assessment and Plan (1) Ureteric calculus: Status: Acute (2) Hydronephrosis concurrent with and due to calculi of kidney and ureter: Status: Acute Plan Risks, benefits and alternatives to therapy were discussed. These include but are not limited to infection, bleeding, damage to local organs and tissues, need for further interventions. Anesthetic risks regarding cardiac arrhythmia, blood clots, and potential mortality were discussed. The patient understands the typical recovery time and the outpatient nature of the procedure. After consideration of these risks the patient gives full informed consent and they wish to move ahead with the procedure. Cystoscopy, right retrograde, right stent placement Time Spent With Patient Time: Total time managing care of this patient today ____ minutes. Procedures Date of Service Date of Service: 09/09/22
--- NOTE | 2022-09-09 16:56 | PC.NURSE ---
pt transferred to PACU bedside report given
[2022-09-09 17:09] VITALS: BP 113/66; PULSE 103; RESP 20; TEMP 36.9; O2SAT 95
--- NOTE | 2022-09-09 18:15 | MHC.SHP ---
Pre-Procedural Eval Section A Date of Service: 09/09/22 The patient is an INPATIENT: No Changes since office visit: No Cold of Flu in the past 2 weeks, No New Medical Problems, No Changes in Medication and No Patient answered all questions The History & Physical has been completed within 30 days and I have reviewed it.: Yes Section B Chief Complaint: ? kidney stone Allergies: Allergies Allergy/AdvReac Type Severity Reaction Status Date / Time hydromorphone [Dilaudid] Allergy Unknown hives Verified 05/31/18 00:00 metoclopramide [From Reglan] Allergy Unknown Verified 09/09/22 13:13 ibuprofen [From MOTRIN] AdvReac Mild STOMACH Unverified 10/26/19 16:24 UPSET From DILAUDID Allergy Mild HIVES Uncoded 10/26/19 16:24 Motrin Allergy Unknown Unknown Uncoded 09/09/22 13:13 Review of Systems Sugical H&P ROS: Negative: Constitution, Cardiovascular, Respiratory, Neurological, Psychiatric, Hem-Onc, Allergic/Immunologic, Gastrointestinal, Genitourinary, Musculoskeletal, Integumentary, Endocrine and Eyes/Ears/Nose/Throat Plan Diagnosis/Plan: Unchanged ( cystoscopy, right retrograde, right stent placement) I have reviewed the history and physical and performed a pertinent physical examination on my patient. No changes have occurred unless specified. Time Spent With Patient Time: Total time managing care of this patient today ____ minutes.
--- NOTE | 2022-09-09 18:23 | P.CONAN_ITS ---
HPI - Anesthesia Eval Consult details Narrative: Right ureter stone PMFSH Active Problems Active Problems: All Active Problems (Updated 09/09/22 @ 16:58 by Aquiles Irwin MD) Hydronephrosis concurrent with and due to calculi of kidney and ureter (Acute) Ureteric calculus (Acute) Calculus of kidney (Acute) Past Medical History Medical History (Updated 09/09/22 @ 18:23 by Aquiles Shaikh MD) Anxiety Family History Family history of problems with anesthesia: No Surgical History History of Problems with Anesthesia: No Social History Social History Alcohol intake: never Patient Tobacco Use Status: Never used Tobacco Substance Use Type: Marijuana Meds Allergies Allergy/AdvReac Type Severity Reaction Status Date / Time hydromorphone [Dilaudid] Allergy Unknown hives Verified 05/31/18 00:00 metoclopramide [From Reglan] Allergy Unknown Verified 09/09/22 13:13 ibuprofen [From MOTRIN] AdvReac Mild STOMACH Unverified 10/26/19 16:24 UPSET From DILAUDID Allergy Mild HIVES Uncoded 10/26/19 16:24 Motrin Allergy Unknown Unknown Uncoded 09/09/22 13:13 Home Medications Medication Instructions Recorded Confirmed Last Taken Type No Known Home Meds 09/09/22 09/09/22 Unknown History Exam Exam Date and Time: September 09, 2022 1823 Height,Weight and Vital Signs: Height 5 ft 6 in Weight 78.8 kg Last Vital Signs Temp 98.5 F 09/09/22 17:09 Pulse 103 H 09/09/22 17:09 Resp 20 09/09/22 17:09 BP 113/66 09/09/22 17:09 Pulse Ox 95 09/09/22 17:09 O2 Del Method Room Air 09/09/22 17:09 Pertinent Lab Results Pertinent Lab Results: Laboratory Tests 09/09/22 09/09/22 09/09/22 12:16 12:16 13:07 WBC 14.4 H RBC 5.47 Hgb 14.1 Hct 42.8 MCV 78.2 L MCH 25.8 L MCHC 32.9 RDW 14.9 Plt Count 294 MPV 11.1 Immature Gran % (Auto) 0.5 H Neut % (Auto) 66.0 Lymph % (Auto) 25.9 Dickson % (Auto) 6.5 Eos % (Auto) 0.6 Baso % (Auto) 0.5 Lymph # (Auto) 3.7 Dickson # (Auto) 0.9 Eos # (Auto) 0.1 Baso # (Auto) 0.1 Abs Immat Gran (auto) 0.07 H Absolute Neuts (auto) 9.5 H Absolute Nucleated RBC 0.000 Nucleated RBC % (auto) 0.0 Sodium 140 Potassium 3.7 Chloride 110 H Carbon Dioxide 17 L Anion Gap 17 BUN 13 Creatinine 0.84 Estim Creat Clear Calc 98.9 Estimated GFR > 60 Random Glucose 101 Calcium 9.8 Total Bilirubin 1.0 Direct Bilirubin 0.3 AST 13 ALT 12 Alkaline Phosphatase 62 Total Protein 7.6 Albumin 4.5 Lipase 14 Urine Color Yellow Urine Appearance Clear Urine pH 6.5 Ur Specific [place] 1.015 Urine Protein Trace Urine Glucose (UA) Negative Urine Ketones 15 Urine Blood Moderate (2+) H Urine Nitrite Negative Ur Leukocyte Esterase Trace H Urine RBC >20 H Urine WBC 0-5 Ur Squamous Epith Cells 3-5 Urine Bacteria None Seen Hyaline Casts 0-2 Urine Test 09/09/22 13:07 WBC RBC Hgb Hct MCV MCH MCHC RDW Plt Count MPV Immature Gran % (Auto) Neut % (Auto) Lymph % (Auto) Dickson % (Auto) Eos % (Auto) Baso % (Auto) Lymph # (Auto) Dickson # (Auto) Eos # (Auto) Baso # (Auto) Abs Immat Gran (auto) Absolute Neuts (auto) Absolute Nucleated RBC Nucleated RBC % (auto) Sodium Potassium Chloride Carbon Dioxide Anion Gap BUN Creatinine Estim Creat Clear Calc Estimated GFR Random Glucose Calcium Total Bilirubin Direct Bilirubin AST ALT Alkaline Phosphatase Total Protein Albumin Lipase Urine Color Urine Appearance Urine pH Ur Specific [place] Urine Protein Urine Glucose (UA) Urine Ketones Urine Blood Urine Nitrite Ur Leukocyte Esterase Urine RBC Urine WBC Ur Squamous Epith Cells Urine Bacteria Hyaline Casts Urine Test NEGATIVE Airway Mallampati Class: I TM Dist: >3cm Neck ROM: Full Loose/Missing/Broken Teeth: No Heart: RRR Lungs: CTA Assessment and Plan Assessment Anesthesia Assessment: Anesthesia Plan Discussed and Chart Reviewed Final Anesthetic Review Family History of Problems with Anesthesia: No History of Problems with Anesthesia: No NPO: Yes ASA Class: II Final Preanesthetic Review: No Changes in Pt Med Stat, Meds/Allgs Chart Reviewed, Consent Obtained/Reviewed and Anes Risks/Benef Reviewed Patient Risk: Low Procedure Risk: Low Anesthetic Plan Anesthetic Plan: MAC: Disposition: Standard PACU
[2022-09-09] MEDS: Acetaminophen 1,000 MG/100 ML PIGGYBACK 400 MG IV (18:28)
--- NOTE | 2022-09-09 18:52 | W.PM.OPN ---
Operative Note Operative Note Date of Service: 09/09/22 Narrative: PreOperative Diagnosis: right distal ureteric stone with hydronephrosis Post Operative Diagnosis: same Procedure: cystoscopy, right retrograde, right stent placement Surgeon: Dr Aquiles Irwin Anesthesia: sedation Indications for procedure: right distal ureteric stone with hydronephrosis Procedure: After informed consent was verified the patient was brought to the operating room and placed in a supine position. Anesthesia was administered per protocol. The patient was placed in modified dorsal lithotomy position and prepped and draped in a sterile fashion. A safety pause time-out was performed. Laterality of procedure and antibiotics were confirmed, appropriate imaging was available A 22 [place] cystoscope was introduced per urethra. No abnormality was noted of urethra or bladder. Both ureteric orifices were seen in a normal position. The right ureter was cannulated with an open ended catheter and a retrograde examination was performed. filling defect right distal ureter with proximal hydronephrosis . A Sensor guidewire was placed under fluoroscopy and a good coil was seen within the renal pelvis. A 6x 26cm double J stent was advanced over the wire and up to the level of the renal pelvis under fluoroscopic and direct visualization. The stent was seen with appropriate coil within the renal pelvis and in the bladder after deployment. The patient tolerated the procedure well and was transferred in a stable condition to the recovery area. Pathology: Drains: as above
[2022-09-09 19:03] VITALS: BP 97/61; PULSE 76; RESP 15; TEMP 36.7; O2SAT 98
[2022-09-09] MEDS: Phenazopyridine HCL 100 MG TABLET PO (19:09)
[2022-09-09 19:18] VITALS: BP 111/76; PULSE 78; RESP 16; O2SAT 98
[2022-09-09 19:33] VITALS: BP 120/67; PULSE 72; RESP 16; TEMP 37.6; O2SAT 98
== END 2022-09-09 19:33 | disposition home or self-care (01) ==
LOC: HO.ED 15:38 → HO.SSS 15:41
PROVIDERS: Emergency Provider Emergency Medicine; Visit Provider Urology
PROC: (CPT 52332; principal; 2022-09-09 18:40)
DX: N13.2 Hydronephrosis with renal and ureteral calculous obstruction (principal); F41.1 Generalized anxiety disorder; F12.90 Cannabis use, unspecified, uncomplicated; Z88.8 Allergy status to other drugs, medicaments and biological substances
CPT/HCPCS: 52332; 36415; 74177; 80048; 80076; 81001; 81025; 83690; 85025; 96361; 96372; 96374; 96375; 99284; 99285; C1758; C1769; C2617; J0131; J1100; J1885; J2060; J2270; J2405; Q9967

== ENCOUNTER → 2022-09-09 15:41 | Outpatient (BNV) | payer MEDICAID, SELFPAY | PROVIDERS: Emergency Provider Emergency Medicine; Visit Provider Urology | DX: N13.2 Hydronephrosis with renal and ureteral calculous obstruction (principal) | CPT/HCPCS: 52332; 99284 ==

== ENCOUNTER 2022-09-11 10:25 | Emergency (ER) | payer MEDICAID, SELFPAY ==
--- NOTE | ~2022-09-11 | CT_ITS ---
EXAMINATION: CT abdomen pelvis w IV con CLINICAL INFORMATION: Reason for Exam Right flank pain/Stent placement. Abscess? COMPARISON: Prior CT 09/09/2022 TECHNIQUE: Multidetector volumetric imaging was performed from the superior aspect of the liver through the pubic symphysis 85 mL of Omnipaque 350 injected Sagittal and coronal reformatted images were obtained on the technologist's workstation. This CT examination was performed using dose optimization techniques as appropriate, variously including the following: *Automated exposure control *Adjustment of mA and/or kV according to patient size (this includes techniques or standardized protocols for targeted exams where dose is matched to indication/reason for exam; i.e. extremities or head) *Use of iterative reconstruction technique DLP: 590 mGy-cm FINDINGS: LOWER THORAX: Included lung bases are clear. HEPATOBILIARY: There are a few scattered tiny hypodensities in the liver there are less than 5 mm each too small to characterize commonly found to be evolving cysts. There is no suspicious solid lesion or mass. GALLBLADDER: Gallbladder unremarkable. SPLEEN: Spleen is normal in size. PANCREAS: No focal mass or ductal dilatation. STOMACH AND GASTROINTESTINAL TRACT: Stomach is grossly unremarkable. Mild diverticulosis without evidence of acute diverticulitis. No CT evidence of appendicitis. ADRENALS: No adrenal nodules. KIDNEYS/URETERS: Double pigtail stent placed in the right ureter, previously obstructing stone has descended now found in the distal right ureter image 58 series of 3, right hydronephrosis improved, stable bilateral additional multiple tiny nonobstructing kidney stones more than 5 stones on each side the largest on the left side is about 5 mm. Perinephric fat remain clear. No hydronephrosis. No renal abscess. URINARY BLADDER: Partially decompressed. PELVIC VISCERA: Unremarkable PERITONEUM: Trace amount of free fluid in the dependent portion of the pelvis probably sequela of prior obstruction. LYMPH NODES: No lymphadenopathy. VASCULAR:Abdominal aorta normal in size, no aneurysm found. BONES, ABDOMINAL WALL AND SOFT TISSUES: Age-appropriate changes of the spine and skeletal system, no destructive osteolytic or osteosclerotic bone lesion found CT/CT abdomen pelvis w IV con IMPRESSION: * No CT evidence of renal abscess. * Double pigtail stent in the right ureter, previously obstructing stone has descended now found in the distal right ureter. Right hydronephrosis improved. * Other noncritical findings are stable including bilateral nonobstructing kidney stones, mild diverticulosis without evidence of acute diverticulitis, trace amount of free fluid in the dependent portion of the pelvis probably sequela of prior obstruction, and a few scattered tiny hypodensities in the liver too small to characterize commonly found to be evolving cysts.
[2022-09-11 10:36] VITALS: BP 147/103; PULSE 110; RESP 18; TEMP 36.9; O2SAT 98; BMI 26.6
[2022-09-11 11:27] LABS: Basophils Absolute Auto 0.1 X10*3/uL (0.0-0.2); Basophils Percent Auto 0.6 % (0-2); Eosinophils Absolute Auto 0.2 X10*3/uL (0.0-0.4); Eosinophils Percent Auto 1.5 % (0-4); Hematocrit 39.7 % (37.0-47.0); Hemoglobin 13.2 g/dl (12.0-16.0); Imm Gran Abs Auto 0.04 X10*3/uL (0.00-0.03); Imm Gran Pct Auto 0.3 % (0.0-0.4); Lymphocytes Absolute Auto 5.5 X10*3/uL (1.2-4.9); Lymphocytes Percent Auto 47.2 % (20-40); MANUAL DIFF FLAG SCAN; Mean Corpuscular HGB Conc 33.2 g/dl (31.0-35.0); Mean Corpuscular Hemoglobin 26.2 pg (27.0-33.0); Mean Corpuscular Volume 78.9 fL (80.0-98.0); Mean Platelet Volume 10.8 fL (9.4-12.3); Monocytes Absolute Auto 0.7 X10*3/uL (0.1-1.2); Monocytes Percent Auto 5.9 % (2-11); Neutrophils Absolute Auto 5.2 x10*3/uL (2.0-8.3); Neutrophils Percent Auto 44.5 % (45-73); Platelet Count 244 X10*3/uL (160-400); Red Blood Count 5.03 X10*6/uL (4.20-5.50); Red Cell Distribution Width 15.1 % (11.0-16.0); SCAN SMEAR FLAG 1; White Blood Count 11.6 X10*3/uL (4.8-10.8)
[2022-09-11 11:56] LABS: SLIDE REVIEW VERIFIED
--- NOTE | 2022-09-11 12:14 | ED.GENADULT ---
HPI - General Adult General Chief complaint: Abdominal Pain Stated complaint: stent in kidney / in pain Time Seen by Provider: 09/11/22 11:58 Source: patient Mode of arrival: ambulatory Limitations: no limitations History of Present Illness HPI narrative: 37-year-old female wtih recent right kidney stent placment presents to the ED for right flank pain. patient had Stent placement due to obstructive kidney stones. patient states no fever, chills, or recent travel. patient denies any fever or chills. Patient denies any chest pain or shortness of breath. Related Data Previous Rx's Medication Instructions Recorded naproxen 500 mg tablet 500 mg PO BID PRN pain 7 days #14 09/09/22 tabs naproxen 500 mg tablet 500 mg PO BID PRN pain 7 days #14 09/09/22 tabs phenazopyridine 100 mg tablet 100 mg PO TID PRN Spasm 4 days #12 09/09/22 (Pyridium) tabs phenazopyridine 100 mg tablet 100 mg PO TID PRN Spasm 4 days #12 09/09/22 (Pyridium) tabs solifenacin 5 mg tablet 5 mg PO DAILY spasm 14 days #14 09/09/22 tabs solifenacin 5 mg tablet 5 mg PO DAILY spasm 14 days #14 09/09/22 tabs tamsulosin 0.4 mg capsule 0.4 mg PO BEDTIME 14 days #14 caps 09/09/22 tamsulosin 0.4 mg capsule 0.4 mg PO BEDTIME 14 days #14 caps 09/09/22 ketorolac 10 mg tablet 10 mg PO TID PRN pain 5 days #15 09/11/22 tabs oxybutynin chloride 5 mg tablet 5 mg PO DAILY 14 days #14 tabs 09/11/22 oxycodone 5 mg capsule 5 mg PO TID PRN pain 3 days #9 caps 09/11/22 Allergies Allergy/AdvReac Type Severity Reaction Status Date / Time hydromorphone [Dilaudid] Allergy Unknown hives Verified 09/09/22 18:27 metoclopramide [From Reglan] Allergy Unknown Verified 09/09/22 13:13 ibuprofen [From MOTRIN] AdvReac Mild STOMACH Verified 09/09/22 18:27 UPSET From DILAUDID Allergy Mild HIVES Uncoded 10/26/19 16:24 Motrin Allergy Unknown Unknown Uncoded 09/09/22 13:13 Review of Systems Review of Systems: Right flank pain Yes all other systems are reviewed and are negative [facility] Past Medical History Medical History (Updated 09/11/22 @ 18:20 by EMMA Tobin) Anxiety Social History Social History Alcohol intake: never Patient Tobacco Use Status: Never used Tobacco Smoked in Last 30 Days: No Use of substances other than those prescribed or required for medical reasons: Yes Substance Use Type: Marijuana Substance Use Frequency: Socially Advance Directives: No Patient : No Physical Exam ED Vital Signs: Vital Signs - 24 hr 09/11/22 10:36 09/11/22 12:34 09/11/22 12:40 Temperature 98.5 F 98.0 F Pulse Rate 110 H 88 Respiratory Rate 18 18 26 H Blood Pressure 147/103 H 130/69 Pulse Oximetry 98 100 Oxygen Delivery Method Room Air Room Air 09/11/22 13:37 09/11/22 15:08 09/11/22 16:15 Temperature 98.2 F Pulse Rate 82 69 Respiratory Rate 20 26 H 14 Blood Pressure 121/67 115/68 Pulse Oximetry 100 Oxygen Delivery Method Room Air BMI result Body Mass Index 26.6 Const General: cooperative, healthy appearing, comfortable, no acute distress, well developed, alert, awake and Physically active Orientation/consciousness: oriented to person, oriented to place, oriented to time and patient oriented x3 HENMT Head: Yes normal to inspection, Yes No palpable skull fracture present, Yes normocephalic, Yes atraumatic and No abrasion Eyes General: appearance normal, both eyes and all related structures Neck Neck: Yes normal visual inspection, Yes full ROM, Yes no lymphadenopathy, Yes no meningeal signs, Yes trachea midline, Yes supple, No anterior neck swelling and No tender Chest Chest palpation & inspection: normal inspection of the chest and normal palpation of entire chest wall Resp Effort & Inspection: normal respiratory effort and able to speak in complete sentences Auscultation: clear to auscultation bilaterally Cardio Jugular venous distension: no JVD Heart sounds: S1 normal heart sound present and S2 normal heart sound present GI Inspection: Yes normal to inspection and No abdominal wall ecchymosis Palpation (GI): Soft to palpation, not firm, nontender, no guarding and not rigid General: Yes CVA tenderness (Right CVA) Back/Spine/Pelvis Back: CVA tenderness (Right CVA) Skin General skin exam: no rashes or lesions noted, elasticity normal and turgor normal Neuro General: oriented to person, oriented to place, oriented to time, patient oriented x3, gait normal, tone normal, moves all extremities, Normal light touch and pain sensation, no meningeal signs, no focal motor deficits, CN's II-XI intact bilaterally and normal sensation to monofilament Extrem Other: Bilateral lower extremities negative for swelling, pitting edema, or calf tenderness General: Yes normal to inspection and Yes full ROM Psych Appearance: grossly normal, well kempt and not disheveled Course Reevaluation(s) Reevaluation #1: Lactic normalized, patient feeling better. Spoke to Dr. Irwin who evaluated patient recommends oxybutynin, no need for antibiotics, positive nitrates likely secondary to Pyridium, no bacteria in urine, no fever, white count likely reactive. Patient to be discharged home on oxycodone, Toradol, oxybutynin. Educated patient on diagnosis and treatment plan, answered all question, patient verbalizes understanding. At this time patient will be discharged home, advised to return with new or worsening symptoms. Educated on worrisome signs and symptoms and when to return. At this time I feel comfortable discharge home. Time: 18:24 Medications Administered Discontinued Medications Generic Name Dose Route Start Last Admin Trade Name Hali PRN Reason Stop Dose Admin Fentanyl 25 mcg 09/11/22 14:53 09/11/22 15:08 Fentanyl Citrate/Pf 100 Mcg/2 Ml Vial IVPUSH 09/11/22 14:54 25 mcg ONCE ONE Administration Protocol Ceftriaxone Sodium 1 gm/ 50 mls @ 100 mls/hr 09/11/22 13:42 09/11/22 14:55 Sodium Chloride IV 09/11/22 14:11 Infused ONCE ONE Infusion Sodium Chloride 1,000 mls @ 999 mls/hr 09/11/22 14:59 09/11/22 16:13 Ns IV 09/11/22 15:59 Infused .Q1H1M STA Infusion Sodium Chloride 1,000 mls @ 999 mls/hr 09/11/22 15:01 09/11/22 16:13 Ns IV 09/11/22 16:01 Infused .Q1H1M STA Infusion Iohexol 85 ml 09/11/22 14:04 09/11/22 14:05 Iohexol 350 Mg/Ml 75 Ml Infus..Btl IV 09/11/22 14:05 85 ml ONCE ONE Administration Ketorolac Tromethamine 30 mg 09/11/22 18:21 09/11/22 18:54 Ketorolac Tromethamine 15 Mg/Ml Vial IM 09/11/22 18:22 30 mg ONCE ONE Administration Morphine Sulfate 4 mg 09/11/22 12:12 09/11/22 12:40 Morphine Sulfate 4 Mg/Ml Cartridge IVPUSH 09/11/22 12:13 4 mg ONCE ONE Administration Protocol Morphine Sulfate 4 mg 09/11/22 13:20 09/11/22 13:36 Morphine Sulfate 4 Mg/Ml Cartridge IVPUSH 09/11/22 13:21 4 mg ONCE ONE Administration Protocol Medical Decision Making Medical Decision Making [facility] Narrative: 37 year female status post right kidney stent placement presents to ED for right flank pain sent by urology for evaluation. Patient states nausea also. Patient would like them to be removed. Patient had labs given pain medication morphine will be sent for CT scan. Patient will be sent for CT scan to rule out any abscess of the stent. 12:52pm 16:19: Patient started on ceftriaxone. Patient given antibiotics and pyelonephritis. Case was discussed with Dr. Irwin of Urology who recommends patient be admitted for pyelonephritis under hospitalist service. CT scan does not show any abscess near stent pain. Hydronephrosis actually improving. 4:24pm: Case discussed with Dr. Adam for admission 5:00: Dr. Alcazar went to speak to patient refused to be admitted on the hospitalist service and demanding stents to be placed by Dr. Irwin. Case was discussed with Dr. Irwin again he said he will come down and see patient 90 minutes after his surgical procedure. Patient was made aware of this and refused to wait for Dr. Irwin and wants to be discharged. Patient was signed against medical advice. Will order repeat lactic acid. Differential Diagnosis Differential Diagnoses: The differential diagnosis associated with the presentation includes (Abscess, pyelonephritis, UTI, obstructing stone) Admission/Observation Consideration of admission/observation: Escalation of care including admission/observation considered Consult Healthcare Provider Management of the patient was discussed with: Tar Processing Technician (Dr. Irwin of Urology and Dr. Khoury of hospitalist) Lab Data MDM Lab Attestation statement: I reviewed the patient's lab results. 09/11/22 11:22 09/11/22 11:22 Labs: Lab Results 09/11/22 09/11/22 09/11/22 Range/Units 11:22 11:22 12:19 WBC 11.6 H (4.8-10.8) X10*3/uL RBC 5.03 (4.20-5.50) X10*6/uL Hgb 13.2 (12.0-16.0) g/dl Hct 39.7 (37.0-47.0) % MCV 78.9 L (80.0-98.0) fL MCH 26.2 L (27.0-33.0) pg MCHC 33.2 (31.0-35.0) g/dl RDW 15.1 (11.0-16.0) % Plt Count 244 (160-400) X10*3/uL MPV 10.8 (9.4-12.3) fL Immature Gran % (Auto) 0.3 (0.0-0.4) % Neut % (Auto) 44.5 L (45-73) % Lymph % (Auto) 47.2 H (20-40) % [place] % (Auto) 5.9 (2-11) % Eos % (Auto) 1.5 (0-4) % Baso % (Auto) 0.6 (0-2) % Lymph # (Auto) 5.5 H (1.2-4.9) X10*3/uL [place] # (Auto) 0.7 (0.1-1.2) X10*3/uL Eos # (Auto) 0.2 (0.0-0.4) X10*3/uL Baso # (Auto) 0.1 (0.0-0.2) X10*3/uL Abs Immat Gran (auto) 0.04 H (0.00-0.03) X10*3/uL Absolute Neuts (auto) 5.2 (2.0-8.3) x10*3/uL Absolute Nucleated RBC 0.000 (0.0-0.012) X10*3/uL Nucleated RBC % (auto) 0.0 (0.0-0.2) /100WBC Smear Tech's Comments VERIFIED Sodium 140 (135-145) mmol/L Potassium 3.4 (3.3-5.1) mmol/L Chloride 110 H (96-108) mmol/L Carbon Dioxide 19 L (22-29) mmol/L Anion Gap 15 (12-20) BUN 14 (9-16) mg/dL Creatinine 0.77 (0.5-1.4) mg/dL Estim Creat Clear Calc 105.4 Estimated GFR > 60 Random Glucose 98 (60-115) mg/dL Lactic Acid (0.5-2.0) mmol/L Lactic Acid F/U @ 2Hr (0.5-2.0) mmol/L Calcium 9.1 D (8.4-10.2) mg/dL Total Bilirubin 0.5 (0.0-1.0) mg/dL AST 14 (5-31) U/L ALT 11 (0-31) U/L Alkaline Phosphatase 53 (39-117) U/L Total Protein 6.7 (6.5-8.0) g/dL Albumin 4.0 (3.5-5.0) g/dL Beta HCG, Quant < 2 mIU/mL Urine Color [place] Urine Appearance Hazy Urine pH 6.5 (5.0-9.0) Ur Specific [place] 1.015 (1.005-1.025) Urine Protein 100 (2+) H (Neg-Trace) mg/dL Urine Glucose (UA) 100 H (Negative) mg/dL Urine Ketones Negative (Negative) mg/dL Urine Blood Large (3+) H (Negative) Urine Nitrite Positive H (Negative) Ur Leukocyte Esterase Trace H (Negative) Urine RBC >20 H (0-2) /HPF Urine WBC 6-10 H (0-5) /HPF Ur Squamous Epith Cells 3-5 (0-2) /HPF Urine Bacteria None Seen (None Seen) Hyaline Casts 0-2 (0-2) /LPF Urine Test (NEGATIVE) COVID-19 (JAGDEEP) (Negative) COVID-19 Clin Com 09/11/22 09/11/22 09/11/22 Range/Units 12:19 14:22 17:24 WBC (4.8-10.8) X10*3/uL RBC (4.20-5.50) X10*6/uL Hgb (12.0-16.0) g/dl Hct (37.0-47.0) % MCV (80.0-98.0) fL MCH (27.0-33.0) pg MCHC (31.0-35.0) g/dl RDW (11.0-16.0) % Plt Count (160-400) X10*3/uL MPV (9.4-12.3) fL Immature Gran % (Auto) (0.0-0.4) % Neut % (Auto) (45-73) % Lymph % (Auto) (20-40) % [place] % (Auto) (2-11) % Eos % (Auto) (0-4) % Baso % (Auto) (0-2) % Lymph # (Auto) (1.2-4.9) X10*3/uL [place] # (Auto) (0.1-1.2) X10*3/uL Eos # (Auto) (0.0-0.4) X10*3/uL Baso # (Auto) (0.0-0.2) X10*3/uL Abs Immat Gran (auto) (0.00-0.03) X10*3/uL Absolute Neuts (auto) (2.0-8.3) x10*3/uL Absolute Nucleated RBC (0.0-0.012) X10*3/uL Nucleated RBC % (auto) (0.0-0.2) /100WBC Smear Tech's Comments Sodium (135-145) mmol/L Potassium (3.3-5.1) mmol/L Chloride (96-108) mmol/L Carbon Dioxide (22-29) mmol/L Anion Gap (12-20) BUN (9-16) mg/dL Creatinine (0.5-1.4) mg/dL Estim Creat Clear Calc Estimated GFR Random Glucose (60-115) mg/dL Lactic Acid 3.1 H* (0.5-2.0) mmol/L Lactic Acid F/U @ 2Hr 1.1 (0.5-2.0) mmol/L Calcium (8.4-10.2) mg/dL Total Bilirubin (0.0-1.0) mg/dL AST (5-31) U/L ALT (0-31) U/L Alkaline Phosphatase (39-117) U/L Total Protein (6.5-8.0) g/dL Albumin (3.5-5.0) g/dL Beta HCG, Quant mIU/mL Urine Color Urine Appearance Urine pH (5.0-9.0) Ur Specific [place] (1.005-1.025) Urine Protein (Neg-Trace) mg/dL Urine Glucose (UA) (Negative) mg/dL Urine Ketones (Negative) mg/dL Urine Blood (Negative) Urine Nitrite (Negative) Ur Leukocyte Esterase (Negative) Urine RBC (0-2) /HPF Urine WBC (0-5) /HPF Ur Squamous Epith Cells (0-2) /HPF Urine Bacteria (None Seen) Hyaline Casts (0-2) /LPF Urine Test NEGATIVE (NEGATIVE) COVID-19 (JAGDEEP) (Negative) COVID-19 Clin Com 09/11/22 Range/Units 17:24 WBC (4.8-10.8) X10*3/uL RBC (4.20-5.50) X10*6/uL Hgb (12.0-16.0) g/dl Hct (37.0-47.0) % MCV (80.0-98.0) fL MCH (27.0-33.0) pg MCHC (31.0-35.0) g/dl RDW (11.0-16.0) % Plt Count (160-400) X10*3/uL MPV (9.4-12.3) fL Immature Gran % (Auto) (0.0-0.4) % Neut % (Auto) (45-73) % Lymph % (Auto) (20-40) % [place] % (Auto) (2-11) % Eos % (Auto) (0-4) % Baso % (Auto) (0-2) % Lymph # (Auto) (1.2-4.9) X10*3/uL [place] # (Auto) (0.1-1.2) X10*3/uL Eos # (Auto) (0.0-0.4) X10*3/uL Baso # (Auto) (0.0-0.2) X10*3/uL Abs Immat Gran (auto) (0.00-0.03) X10*3/uL Absolute Neuts (auto) (2.0-8.3) x10*3/uL Absolute Nucleated RBC (0.0-0.012) X10*3/uL Nucleated RBC % (auto) (0.0-0.2) /100WBC Smear Tech's Comments Sodium (135-145) mmol/L Potassium (3.3-5.1) mmol/L Chloride (96-108) mmol/L Carbon Dioxide (22-29) mmol/L Anion Gap (12-20) BUN (9-16) mg/dL Creatinine (0.5-1.4) mg/dL Estim Creat Clear Calc Estimated GFR Random Glucose (60-115) mg/dL Lactic Acid (0.5-2.0) mmol/L Lactic Acid F/U @ 2Hr (0.5-2.0) mmol/L Calcium (8.4-10.2) mg/dL Total Bilirubin (0.0-1.0) mg/dL AST (5-31) U/L ALT (0-31) U/L Alkaline Phosphatase (39-117) U/L Total Protein (6.5-8.0) g/dL Albumin (3.5-5.0) g/dL Beta HCG, Quant mIU/mL Urine Color Urine Appearance Urine pH (5.0-9.0) Ur Specific [place] (1.005-1.025) Urine Protein (Neg-Trace) mg/dL Urine Glucose (UA) (Negative) mg/dL Urine Ketones (Negative) mg/dL Urine Blood (Negative) Urine Nitrite (Negative) Ur Leukocyte Esterase (Negative) Urine RBC (0-2) /HPF Urine WBC (0-5) /HPF Ur Squamous Epith Cells (0-2) /HPF Urine Bacteria (None Seen) Hyaline Casts (0-2) /LPF Urine Test (NEGATIVE) COVID-19 (JAGDEEP) Negative (Negative) COVID-19 Clin Com See Note Independent Interpretation I performed an independent interpretation of an: CT Scan Radiology Impression Discussion of test interpretation with radiology: I have reviewed the radiologist's reading. External Record Review External record reviewed: Other (Prior ED visit) Discharge Plan Discharge Clinical Impression: Ureteric calculus Patient Disposition: Home, Self-Care Instructions: Ureteral Stones (ED) Additional Instructions: You are signing out against medical advice. Return to the ED for worsening abdominal pain, flank pain, nausea, vomiting, fever, chills, or any other concerning symptoms. Please follow-up with urologist Take your medications as prescribed. If you were prescribed antibiotics today, it is important that you take your medication to their entirety, do not skip any doses, do not finish them early. Follow-up with your primary care provider this week. Return to the emergency department with new or worsening symptoms. Such as fevers, chills, chest pain, shortness of breath, nausea, vomiting, dizziness, headache, vision changes, lethargy In case of emergency call 911 Prescriptions: New oxycodone 5 mg capsule 5 mg PO TID PRN (Reason: pain) 3 Days Qty: 9 0RF Rx Instructions: Partial Fill upon patient request. side effect is drowsiness. oxybutynin chloride 5 mg tablet 5 mg PO DAILY 14 Days Qty: 14 0RF ketorolac 10 mg tablet 10 mg PO TID PRN (Reason: pain) 5 Days Qty: 15 0RF No Action tamsulosin 0.4 mg capsule 0.4 mg PO BEDTIME 14 Days Qty: 14 0RF phenazopyridine [Pyridium] 100 mg tablet 100 mg PO TID PRN (Reason: Spasm) 4 Days Qty: 12 0RF naproxen 500 mg tablet 500 mg PO BID PRN (Reason: pain) 7 Days Qty: 14 0RF solifenacin 5 mg tablet 5 mg PO DAILY 14 Days Qty: 14 0RF Rx Instructions: take 1 tab daily for 7 days while stent in place tamsulosin 0.4 mg capsule 0.4 mg PO BEDTIME 14 Days Qty: 14 0RF phenazopyridine [Pyridium] 100 mg tablet 100 mg PO TID PRN (Reason: Spasm) 4 Days Qty: 12 0RF naproxen 500 mg tablet 500 mg PO BID PRN (Reason: pain) 7 Days Qty: 14 0RF solifenacin 5 mg tablet 5 mg PO DAILY 14 Days Qty: 14 0RF Rx Instructions: take 1 tab daily for 7 days while stent in [address] Referrals: Aquiles Irwin MD [Physician] - (Pyelonephritis, UTI, ureteral stone) Stand Alone Forms: Work/School Release Interventions: ED Discharge Assessment Last Done: 09/11/22 18:55 Discharge Date/Time: 09/11/22 18:56 Print Language: Taiwanese
[2022-09-11 12:32] LABS: Appearance Urine Hazy; Glucose Urine UA 100 mg/dL (Negative); Leukocyte Esterase Urine Trace (Negative); Nitrite Urine Positive (Negative); PH 6.5 (5.0-9.0); Specific Gravity - Urine 1.015 (1.005-1.025); UMIC TRIGGER UACC YES; Urine Blood Large (3+) (Negative); Urine Ketones Negative (Negative); Urine Protein 100 (2+) mg/dL (Neg-Trace)
[2022-09-11 12:33] LABS: Color Urine Orange
[2022-09-11 12:34] VITALS: BP 130/69; PULSE 88; RESP 18; TEMP 36.7; O2SAT 100
[2022-09-11 12:37] LABS: Bacteria Urine None Seen (None Seen); Hyaline Casts Urine 0-2 /LPF (0-2); RBC Urine >20 /HPF (0-2); UACC Culture Trigger YES
[2022-09-11 12:40] VITALS: RESP 26
[2022-09-11] MEDS: Morphine Sulfate 4 MG/ML CARTRIDGE IVPUSH ×2 (12:40→13:36)
[2022-09-11 13:21] LABS: Alanine Aminotransferase 11 U/L (0-31); Alkaline Phosphatase 53 U/L (39-117); Anion Gap 15 (12-20); Aspartate Amino Transferase 14 U/L (5-31); Bilirubin Total 0.5 mg/dL (0.0-1.0); Blood Urea Nitrogen 14 mg/dL (9-16); Calcium 9.1 mg/dL (8.4-10.2); Carbon Dioxide 19 mmol/L (22-29); Chloride 110 mmol/L (96-108); Creatinine Clr Calc Pharmacy 105.4; Estimated Glomerular Filt Rate > 60; Glucose Random 98 mg/dL (60-115); Potassium 3.4 mmol/L (3.3-5.1); Sodium 140 mmol/L (135-145); Total Protein 6.7 g/dL (6.5-8.0)
[2022-09-11 13:37] VITALS: BP 121/67; PULSE 82; RESP 20
[2022-09-11 13:45] LABS: HCG Quantitative < 2 mIU/mL
[2022-09-11 14:01] LABS: UPreg QC Valid YES; Urine Pregnancy NEGATIVE (NEGATIVE)
[2022-09-11] MEDS: iohexoL 350 MG/ML 75 ML INFUS..BTL 85 ML IV (14:05)
[2022-09-11] MEDS: cefTRIAXone sodium 1 GM in 0.9 % Sodium Chloride 50 ML IV (14:23)
[2022-09-11 14:59] LABS: Lactic Acid 3.1 mmol/L (0.5-2.0)
[2022-09-11 15:08] VITALS: RESP 26
[2022-09-11] MEDS: fentaNYL citrate/PF 100 MCG/2 ML VIAL 25 MCG IVPUSH (15:08)
[2022-09-11] MEDS: 0.9 % Sodium Chloride 1,000 ML 999 ML IV ×2 (15:09)
[2022-09-11 16:15] VITALS: BP 115/68; PULSE 69; RESP 14; TEMP 36.8; O2SAT 100
[2022-09-11 16:24] LABS: Reflex Lactate? Lactic Acid Added
[2022-09-11 18:07] LABS: COVID-19 Test Negative (Negative); IDNOW Serial# BCCEAD1C
[2022-09-11 18:08] LABS: ~Lactic Acid-LAB USE ONLY 1.1 mmol/L (0.5-2.0)
[2022-09-11] MEDS: Ketorolac Tromethamine 15 MG/ML VIAL 30 MG IM (18:54)
== END 2022-09-11 18:56 | disposition home or self-care (01) ==
PROVIDERS: Physician Assistant; Emergency Provider Emergency Medicine
DX: N13.2 Hydronephrosis with renal and ureteral calculous obstruction (principal); R10.9 Unspecified abdominal pain; Z96.0 Presence of urogenital implants; Z20.822 Contact with and (suspected) exposure to COVID-19; F12.90 Cannabis use, unspecified, uncomplicated
CPT/HCPCS: 36415; 74177; 80053; 81001; 81025; 83605; 84702; 85025; 87040; 87086; 87635; 96361; 96365; 96372; 96375; 96376; 99284; J0696; J1885; J2270; J3010; Q9967

== ENCOUNTER 2022-09-16 13:56 | Outpatient (AMB) | payer MEDICAID, SELFPAY ==
--- NOTE | 2022-09-16 13:57 | MHC.OFFVIS ---
Intake Intake Visit Reasons: stent removal Intake Note: Pt presents to the office today for a stent removal. Urinalysis done. Disposable scope used-LOT:[id number] EXP:06/29/24 Allergies hydromorphone [Dilaudid] Allergy (Unknown, Verified 09/16/22 13:59) hives metoclopramide [From Reglan] Allergy (Verified 09/16/22 13:59) Unknown ibuprofen [From MOTRIN] Adverse Reaction (Mild, Verified 09/16/22 13:59) STOMACH UPSET From DILAUDID Allergy (Mild, Uncoded 09/16/22 13:59) HIVES Motrin Allergy (Unknown, Uncoded 09/16/22 13:59) Unknown Medication List - Last Reconciled 09/16/22 by Aquiles Irwin MD ciprofloxacin HCl 500 mg PO BID 5 days ketorolac 10 mg PO TID PRN 5 days oxybutynin chloride 5 mg PO DAILY 14 days phenazopyridine (Pyridium) 100 mg PO TID PRN 4 days phenazopyridine (Pyridium) 100 mg PO TID PRN 4 days solifenacin 5 mg PO DAILY 14 days solifenacin 5 mg PO DAILY 14 days tamsulosin 0.4 mg PO BEDTIME 14 days tamsulosin 0.4 mg PO BEDTIME 14 days HPI HPI Comments History of Present Illness Details Felecia is a pleasant female. She seen for the following urologic conditions - nephrolithiasis Here for stent removal Concurrent UTI 2 month follow-up renal ultrasound Increase fluids Nephrolithiasis Prior stone history of a 10 years ago Recent presentation through emergency room for right-sided flank pain Imaging - There is a 5 mm stone in distal right ureter causing mild right hydroureter and moderate right hydronephrosis. There are multiple punctate bilateral nephroliths measuring up to 5 mm Intervention - 09/30 right ureteroscopy Stone composition - 09/30 carbonate apatite stone 90% Laboratories WBC 14.4, calcium 9.8, creatinine 0.8 PFSH Medical History Anxiety Social History Alcohol intake: never Patient Tobacco Use Status: Never used Tobacco Substance Use Type: Marijuana Review of Systems Const Denies chills and Denies fever(s) Card Reports no additional complaints and Denies syncope Resp Denies cough GI Denies abdominal pain and Denies heartburn Reports as per HPI and Denies change in libido Neuro Denies syncope Psych Denies change in libido Endo Denies change in libido Physical Exam Const General: cooperative, healthy appearing, comfortable and no acute distress Orientation/consciousness: patient oriented x3 HEENT Face and sinus: Yes normal facial exam Mouth: moist mucous membranes Neck Neck: Yes normal visual inspection, Yes full ROM and Yes trachea midline Chest Chest palpation & inspection: normal inspection of the chest Resp Effort & Inspection: normal respiratory effort, able to speak in complete sentences and no respiratory distress GI Inspection: Yes normal to inspection Back/Spine/Pelvis Cervical Spine: normal cervical lordosis Thoracic/Lumbar Spine: thoracic and lumbar spine normal to inspection Skin General skin exam: no rashes or lesions noted Neuro General: patient oriented x3, gait normal, tone normal and moves all extremities Extrem General: Yes normal to inspection and Yes capillary refill normal Office Procedures Cystoscopy Consent Discussed risk and benefit or proposed procedure with the patient. Information consent for procedure given to the patient. Discussed technical aspects, risks, benefits and alternatives in full. Addressed all of the patient's questions and concerns regarding the procedure. The patient demonstrated knowledge and understanding. They wish to proceed with this procedure. Preparation The patient was prepped in the usual manner. A keymodule assembly machine tender was present and in the room. Genitalia was prepped with betadine solution in a sterile manner. Lidocaine Jelly 2% was placed into the urethra and 16Fr flexible Olympus cystoscope was inserted into the meatus after adequate lubrication. Procedure A well lubricated 16 [place] cystoscope was placed No abnormality noted of urethra during placement Indwelling stent seen within bladder emerging from right ureteric orifices The stent was grasped with a 3 prong grasper and removed without difficulty The patient tolerated the procedure well [id number] with stent removal DISPOSABLE SCOPE URO-G FLEXIBLE SCOPE Procedure code (CPT) selection complete Office Meds lidocaine HCl Performing Provider: Aquiles Irwin MD Administered by: Rosetta Mello RN on 09/16/22 14:23 Dose Route Admin Location Lot Number Expiration Date NDC Secretary Administrative Assistant 10 mL intra-urethral nitrofurantoin monohyd/m-cryst 100 mg Performing Provider: Aquiles Irwin MD Administered by: Rosetta Mello RN on 09/16/22 14:23 Dose Route Admin Location Lot Number Expiration Date NDC Secretary Administrative Assistant 100 mg PO naproxen Performing Provider: Aquiles Irwin MD Administered by: Rosetta Mello RN on 09/16/22 14:23 Dose Route Admin Location Lot Number Expiration Date NDC Secretary Administrative Assistant 500 mg PO Results AMB Urinalysis, Automated UA Leukoctes 500 Estefania/uL Last Edit by Emelyn Wei MA on 09/16/22 14:19 UA Nitrite Positive Last Edit by Emelyn Wei MA on 09/16/22 14:19 UA Urobilinogen 4 mg/dL Last Edit by Emelyn Wei MA on 09/16/22 14:19 UA Protein 300 mg/dL Last Edit by Emelyn Wei MA on 09/16/22 14:19 UA pH 5.5 Last Edit by Emelyn Wei MA on 09/16/22 14:19 UA Blood 200 Jeovany/uL Last Edit by Emelyn Wei MA on 09/16/22 14:19 UA Specific [place] 1.025 Last Edit by Emelyn Wei MA on 09/16/22 14:19 UA Ketone Positive Last Edit by Emelyn Wei MA on 09/16/22 14:19 UA Bilirubin 1 mg/dL Last Edit by Emelyn Wei MA on 09/16/22 14:19 UA Glucose 100 mg/dL Last Edit by Emelyn Wei MA on 09/16/22 14:19 Results Reviewed Results Reviewed: Laboratory Last Values Urine pH (Auto) 5.5 09/16/22 14:18 Specific [place] (Auto) 1.025 09/16/22 14:18 Urine Protein (Auto) 300 mg/dL 09/16/22 14:18 Glucose (UA)(Auto) 100 mg/dL 09/16/22 14:18 Urine Ketones (Auto) Positive 09/16/22 14:18 Urine Blood (Auto) 200 Jeovany/uL 09/16/22 14:18 Urine Nitrite (Auto) Positive 09/16/22 14:18 Urine Bilirubin (Auto) 1 mg/dL 09/16/22 14:18 Urine Urobilinogen (Auto) 4 mg/dL 09/16/22 14:18 Leukocyte Esterase (Auto) 500 Estefania/uL 09/16/22 14:18 Assessment & Plan Assessment & Plan (1) Chronic UTI (urinary tract infection): Code(s): N39.0 - Urinary tract infection, site not specified (2) Ureteric calculus: Code(s): N20.1 - Calculus of ureter Plan Treat UTI Imaging surveillance Orders: Orders US renal BI 2 Months N20.0 - Calculus of kidney, N20.1 - Calculus of ureter AMB Cystoscopy Today N20.1 - Calculus of ureter AMB Urinalysis Automated Today Z13.9 - Encounter for screening, unspecified Medications: New ciprofloxacin HCl 500 mg PO BID 5 days 10 tabs 0RF N39.0 - Urinary tract infection, site not specified Patient Instructions: Imaging studies, laboratory and physical exam results were discussed and reviewed in detail. No major barriers to patient understanding were identified. An opportunity to ask questions regarding the treatment plan was provided. All questions were answered. The patient expressed understanding and agreement with the above treatment plan. The patient is aware they should contact our office by phone for worsening of their current condition or the appearance of new urologic symptoms. Compliance is encouraged with any medications and followup testing that is ordered. It is a privilege to participate in the urologic care of your patient. If you have any questions or concerns regarding treatment for the above conditions, or other urologic issues, please do not hesitate to contact me. The office telephone contact is [phone]. This note is constructed using voice recognition software. While every effort has been made to ensure accuracy deliverer outside errors may have been included. Yours sincerely, Dr Aquiles Irwin MD, [facility] - Urology Providers of Expert, Compassionate Care for the Genitourinary System Coding Level of Care Code Est Pt Level 4 (32674) Diagnoses Chronic UTI (urinary tract infection) N39.0 Ureteric calculus N20.1 CPT Codes Cystoscopy - CPT: 05250-[id number] with stent removal ([id number]) Cystoscopy - CPT: DISPOSABLE SCOPE URO-G FLEXIBLE SCOPE ([id number])
== END 2022-09-16 14:37 | disposition home or self-care (01) ==
PROVIDERS: Visit Provider Urology
DX: N39.0 Urinary tract infection, site not specified (principal); N20.1 Calculus of ureter
CPT/HCPCS: 52310

== ENCOUNTER → 2022-09-16 13:56 | Outpatient (BNVA) | payer MEDICAID, SELFPAY | PROVIDERS: Visit Provider Urology | DX: N20.1 Calculus of ureter (principal); N39.0 Urinary tract infection, site not specified | CPT/HCPCS: 52310; 81003; C1747 ==

== ENCOUNTER 2022-09-17 14:59 | Emergency (ER) | payer MEDICAID, SELFPAY ==
--- NOTE | ~2022-09-17 | CT_ITS ---
EXAMINATION: CT ABDOMEN AND PELVIS WITHOUT CONTRAST CLINICAL INFORMATION: Severe right flank pain. Had stent removed yesterday. COMPARISON: 09/11/2022 TECHNIQUE: Multidetector volumetric imaging was performed from the superior aspect of the liver through the pubic symphysis. Sagittal and coronal reformatted images were obtained on the technologist's workstation. This CT examination was performed using dose optimization techniques as appropriate, variously including the following: *Automated exposure control *Adjustment of mA and/or kV according to patient size (this includes techniques or standardized protocols for targeted exams where dose is matched to indication/reason for exam; i.e. extremities or head) *Use of iterative reconstruction technique DLP: 580 mGy-cm FINDINGS: LUNG BASES: Small pericardial effusion. LIVER, GALLBLADDER, AND BILIARY TREE: The noncontrast liver is normal in size and contour. No biliary ductal dilatation is present. The gallbladder is unremarkable with no evidence of radiopaque gallstones, gallbladder wall thickening, or obvious pericholecystic inflammatory changes. PANCREAS: Unremarkable. SPLEEN: Not enlarged. ADRENAL GLANDS: No adrenal mass. KIDNEYS AND URETERS: Edematous right kidney with perinephric stranding. Moderate right hydroureteronephrosis. 3 mm and 5 mm stacked calculi are seen in the distal right ureter proximal to the ureterovesical junction. There are numerous right renal calculi. There are numerous nonobstructing left renal calculi. No left hydroureteronephrosis. No perinephric stranding. BLADDER: No bladder calculus. GASTROINTESTINAL TRACT: Small hiatal hernia. No small bowel obstruction. ABDOMINAL WALL: No significant hernia is appreciated. LYMPH NODES: No bulky abdominal or pelvic lymphadenopathy. VASCULAR: Normal caliber abdominal aorta. PELVIC VISCERA: Vaginal tampon in place. Uterus is anteverted. OSSEOUS STRUCTURES: No destructive bone lesions. CT/CT abdomen pelvis wo IV con IMPRESSION: Following removal of the stent, 3 mm and 5 mm calculi have been displaced into the distal right ureter causing obstruction with moderate right hydroureteronephrosis and perinephric stranding.
[2022-09-17 15:35] VITALS: BP 150/104; PULSE 128; RESP 22; TEMP 36.8; O2SAT 100; BMI 26.6
--- NOTE | 2022-09-17 15:41 | ED_ITS ---
HPI - Female Genitourinary General Chief complaint: Urogenital-Female Stated complaint: right side abd pain stent removed 09/16 Time Seen by Provider: 09/17/22 16:26 Source: patient, RN notes reviewed and old records reviewed Mode of arrival: ambulatory Limitations: no limitations History of Present Illness HPI Narrative: 37-year-old female presents for evaluation of severe right-sided flank pain. That her symptoms started yesterday after she left the urology office She follows with Dr. Lee The patient had a right ureteral stent removed in the office yesterday and her pain started right afterwards She complains of 10/10 pain to her right flank and radiates down to her right groin Denies any fevers or chills She has associated nausea Related Data Previous Rx's Medication Instructions Recorded phenazopyridine 100 mg tablet 100 mg PO TID PRN Spasm 4 days #12 09/09/22 (Pyridium) tabs phenazopyridine 100 mg tablet 100 mg PO TID PRN Spasm 4 days #12 09/09/22 (Pyridium) tabs solifenacin 5 mg tablet 5 mg PO DAILY spasm 14 days #14 09/09/22 tabs solifenacin 5 mg tablet 5 mg PO DAILY spasm 14 days #14 09/09/22 tabs tamsulosin 0.4 mg capsule 0.4 mg PO BEDTIME 14 days #14 caps 09/09/22 tamsulosin 0.4 mg capsule 0.4 mg PO BEDTIME 14 days #14 caps 09/09/22 ketorolac 10 mg tablet 10 mg PO TID PRN pain 5 days #15 09/11/22 tabs oxybutynin chloride 5 mg tablet 5 mg PO DAILY 14 days #14 tabs 09/11/22 ciprofloxacin HCl 500 mg tablet 500 mg PO BID 5 days #10 tabs 09/16/22 oxycodone 5 mg tablet 5 mg PO Q4-6H PRN severe pain 09/17/22 (scale score 7-10) #16 tabs Allergies Allergy/AdvReac Type Severity Reaction Status Date / Time hydromorphone [Dilaudid] Allergy Unknown hives Verified 09/16/22 13:59 metoclopramide [From Reglan] Allergy Unknown Verified 09/16/22 13:59 ibuprofen [From MOTRIN] AdvReac Mild STOMACH Verified 09/16/22 13:59 UPSET From DILAUDID Allergy Mild HIVES Uncoded 09/16/22 13:59 Motrin Allergy Unknown Unknown Uncoded 09/16/22 13:59 Review of Systems Constitutional: Constitutional: Reports as per HPI, Denies chills, Denies fatigue, Denies fever(s) and Denies headache(s) ENT: Denies headache(s) Cardiovascular: Cardiovascular: Denies chest pain and Denies dyspnea Respiratory: Respiratory: Denies cough and Denies dyspnea Gastrointestinal: Gastrointestinal: Reports abdominal pain, Denies constipation, Reports nausea and Denies vomiting Musculoskeletal: Musculoskeletal: Reports back pain Neurologic: Denies headache(s) and Denies focal weakness Endocrine: Endocrine: Denies fatigue PMFSH Past Medical History Medical History Anxiety Social History Social History Alcohol intake: never Patient Tobacco Use Status: Never used Tobacco Smoked in Last 30 Days: No Use of substances other than those prescribed or required for medical reasons: No Substance Use Type: Marijuana Substance Use Frequency: Occasionally Advance Directives: No Advance Directives Information Provided: Yes Physical Exam Vital Signs: Vital Signs: Last Vital Signs Temp 98.1 F 09/17/22 19:23 Pulse 60 09/17/22 19:23 Resp 14 09/17/22 19:23 BP 129/78 09/17/22 19:23 Pulse Ox 100 09/17/22 19:23 O2 Del Method Room Air 09/17/22 19:23 BMI result Body Mass Index 26.6 Const: General: healthy appearing, alert, awake, acute distress moderate; not respiratory, anxious and diaphoretic; No comfortable Nutritional Appearance: well nourished Orientation/consciousness: patient oriented x3 HEENT: Head: Yes normocephalic and Yes atraumatic Eyes: Eyelids: Yes eyelids normal Conjunctivae: conjunctivae normal Sclerae: sclerae normal Corneas: corneas normal Pupils: Equal, round and reactive pupils present EOM: EOMs intact bilaterally Neck: Neck: Yes full ROM Resp: Effort & Inspection: normal respiratory effort, able to speak in complete sentences and not labored Cardio: Rhythm: regular rhythm GI: Inspection: No distended Palpation (GI): Soft to palpation, not firm and Tenderness to palpation present (GI) in the RLQ : General: Yes CVA tenderness (on right) Back/Spine/Pelvis: Back: CVA tenderness (on right) Skin: General skin exam: no rashes or lesions noted and elasticity normal Neuro: General: patient oriented x3 Cranial nerves: Yes Equal, round and reactive pupils present and Yes Bilaterally intact EOM present Cognition (Neuro): normal cognition Course Course Course Narrative: This is an RME: Additional HPI, ROS, PE not included below will be deferred to primary provider. This is a 37-year-old female presenting to the emergency department with severe right-sided flank pain. She was seen by Dr. Lee yesterday where she had renal stent removed. Patient has had severe this pain since. Endorsing nausea, no vomiting. No fevers. Pulse 128, respirations 22, blood pressure 150/104. Patient sobbing, appears very uncomfortable secondary to pain. Reached out to Dr. Irwin who states that this may be a muscle spasm and would benefit to receiving toradol. Given level of discomfort, CT abd and pelvis ordered. Plan: Labs, UA, CT abd/pelvis ordered Reevaluation(s) Reevaluation #1: A reports that her pain is finally under control. I discussed potential admission with the patient however given that she is comfortable we will trial oral oxycodone at prescribed analgesia at home. Will give her a dose now as the IV medications will likely be wearing off shortly and she will be given a short course of oxycodone to go home with. She was again given strict return p recaution Time: 19:56 Medications Administered Discontinued Medications Generic Name Dose Route Start Last Admin Trade Name Hali PRN Reason Stop Dose Admin Fentanyl 50 mcg 09/17/22 18:15 09/17/22 18:36 Fentanyl Citrate/Pf 100 Mcg/2 Ml Vial IVPUSH 09/17/22 18:16 50 mcg ONCE ONE Administration Protocol Furosemide 10 mg 09/17/22 18:11 09/17/22 18:38 Furosemide 20 Mg Tablet PO 09/17/22 18:12 10 mg ONCE ONE Administration Protocol Sodium Chloride 1,000 mls @ 999 mls/hr 09/17/22 16:30 09/17/22 17:57 Ns IV 09/17/22 17:30 Infused .Q1H1M KANDY Infusion Sodium Chloride 1,000 mls @ 999 mls/hr 09/17/22 18:15 09/17/22 19:46 Ns IV 09/17/22 19:15 Infused .Q1H1M KANDY Infusion Ketorolac Tromethamine 30 mg 09/17/22 16:27 09/17/22 16:44 Ketorolac Tromethamine 30 Mg/Ml Vial IVPUSH 09/17/22 16:28 30 mg ONCE ONE Administration Morphine Sulfate 4 mg 09/17/22 16:51 09/17/22 16:58 Morphine Sulfate 4 Mg/Ml Cartridge IVPUSH 09/17/22 16:52 4 mg ONCE ONE Administration Protocol Ondansetron HCl 4 mg 09/17/22 16:51 09/17/22 16:58 Ondansetron Hcl 4 Mg/2 Ml Vial IVPUSH 09/17/22 16:52 4 mg ONCE ONE Administration Ondansetron HCl 4 mg 09/17/22 19:32 09/17/22 19:36 Ondansetron Hcl 4 Mg/2 Ml Vial IVPUSH 09/17/22 19:33 4 mg ONCE ONE Administration Oxycodone HCl 5 mg 09/17/22 19:55 09/17/22 20:16 Oxycodone Hcl Immed Release 5 Mg Tablet PO 09/17/22 19:56 5 mg ONCE ONE Administration Prednisone 20 mg 09/17/22 18:11 09/17/22 18:37 Prednisone 20 Mg Tablet PO 09/17/22 18:12 20 mg ONCE ONE Administration Medical Decision Making Medical Decision Making MDM Narrative: 37-year-old female presents for evaluation of right flank pain after having a ureteral stent removed yesterday. She is quite uncomfortable, tachycardic and tachypneic likely related to pain. She has a white count of 18.2k. This CT scan or in triage shows 2 separate distal ureteral stones, 3 mm and 5 mm. Patient's creatinine is approximately double what it was on 09/11/2022 to 1.44. Get the UA to assess for sign of infection and discussed with Urology again Differential Diagnosis Differential Diagnoses: The differential diagnosis associated with the presentation includes Obstructive uropathy Ureteral spasm Muscle spasm Pyelonephritis acute abdominal pain Cystitis Consult Healthcare Provider Management of the patient was discussed with: Clinical Laboratory Technician Discussed with Urology, Dr. Irwin, who wrecked his Lasix 10 mg and prednisone 20 mg. He feels the patient can safely be discharged her pain can be Lab Data MDM Lab Attestation statement: I reviewed the patient's lab results. Leukocytosis with a white count of 18.2. No significant anemia, normal platelet count. Sodium potassium normal limits, chloride just above normal at 109 with the carbon dioxide is slightly low at 20. This may be related to hyperventilation due to the amount of pain she is in. His BUN is elevated to 17 with a creatinine 1.44 which is likely related to the obstruction 09/17/22 15:45 09/17/22 15:45 Labs: Lab Results 09/17/22 09/17/22 09/17/22 Range/Units 15:45 15:45 17:05 WBC 18.2 H (4.8-10.8) X10*3/uL RBC 5.10 (4.20-5.50) X10*6/uL Hgb 13.2 (12.0-16.0) g/dl Hct 40.5 (37.0-47.0) % MCV 79.4 L (80.0-98.0) fL MCH 25.9 L (27.0-33.0) pg MCHC 32.6 (31.0-35.0) g/dl RDW 15.0 (11.0-16.0) % Plt Count 294 (160-400) X10*3/uL MPV 11.4 (9.4-12.3) fL Immature Gran % (Auto) 0.5 H (0.0-0.4) % Neut % (Auto) 63.8 (45-73) % Lymph % (Auto) 26.9 (20-40) % [place] % (Auto) 6.6 (2-11) % Eos % (Auto) 1.7 (0-4) % Baso % (Auto) 0.5 (0-2) % Lymph # (Auto) 4.9 (1.2-4.9) X10*3/uL [place] # (Auto) 1.2 (0.1-1.2) X10*3/uL Eos # (Auto) 0.3 (0.0-0.4) X10*3/uL Baso # (Auto) 0.1 (0.0-0.2) X10*3/uL Abs Immat Gran (auto) 0.09 H (0.00-0.03) X10*3/uL Absolute Neuts (auto) 11.6 H (2.0-8.3) x10*3/uL Absolute Nucleated RBC 0.000 (0.0-0.012) X10*3/uL Nucleated RBC % (auto) 0.0 (0.0-0.2) /100WBC Sodium 141 (135-145) mmol/L Potassium 3.3 (3.3-5.1) mmol/L Chloride 109 H (96-108) mmol/L Carbon Dioxide 20 L (22-29) mmol/L Anion Gap 15 (12-20) BUN 17 H (9-16) mg/dL Creatinine 1.44 H (0.5-1.4) mg/dL Estim Creat Clear Calc 56.4 Estimated GFR 41 Random Glucose 103 (60-115) mg/dL Calcium 9.7 D (8.4-10.2) mg/dL Total Bilirubin 0.4 (0.0-1.0) mg/dL Direct Bilirubin 0.1 (0.0-0.5) mg/dL AST 14 (5-31) U/L ALT 11 (0-31) U/L Alkaline Phosphatase 56 (39-117) U/L Total Protein 7.1 (6.5-8.0) g/dL Albumin 4.1 (3.5-5.0) g/dL Urine Color Yellow Urine Appearance Clear Urine pH 8.0 (5.0-9.0) Ur Specific [place] 1.015 (1.005-1.025) Urine Protein Negative (Neg-Trace) mg/dL Urine Glucose (UA) Negative (Negative) mg/dL Urine Ketones Negative (Negative) mg/dL Urine Blood Trace H (Negative) Urine Nitrite Negative (Negative) Ur Leukocyte Esterase Negative (Negative) Urine RBC 6-10 H (0-2) /HPF Urine WBC 0-5 (0-5) /HPF Ur Squamous Epith Cells 0-2 (0-2) /HPF Urine Bacteria None Seen (None Seen) Hyaline Casts 0-2 (0-2) /LPF Radiology Impression Discussion of test interpretation with radiology: I have reviewed the radiologist's reading. Radiologist Impression: Distal right ureteral stones measuring 3 mm and 5 mm causing moderate hydronephrosis Discharge Plan Discharge Clinical Impression: Lower obstructive uropathy Patient Disposition: Home, Self-Care Instructions: Kidney Stones (ED) Additional Instructions: Continues to use Tylenol as needed for pain Use oxycodone for more severe breakthrough pain You can take this medication every 4-6 hours as needed for pain Continue the tamsulosin that you have at home Drink lots of fluids Prescriptions: New oxycodone 5 mg tablet 5 mg PO Q4-6H PRN (Reason: severe pain (scale score 7-10)) Qty: 16 0RF Rx Instructions: Partial Fill upon patient request. No Action oxybutynin chloride 5 mg tablet 5 mg PO DAILY 14 Days Qty: 14 0RF ketorolac 10 mg tablet 10 mg PO TID PRN (Reason: pain) 5 Days Qty: 15 0RF tamsulosin 0.4 mg capsule 0.4 mg PO BEDTIME 14 Days Qty: 14 0RF phenazopyridine [Pyridium] 100 mg tablet 100 mg PO TID PRN (Reason: Spasm) 4 Days Qty: 12 0RF solifenacin 5 mg tablet 5 mg PO DAILY 14 Days Qty: 14 0RF Rx Instructions: take 1 tab daily for 7 days while stent in place tamsulosin 0.4 mg capsule 0.4 mg PO BEDTIME 14 Days Qty: 14 0RF phenazopyridine [Pyridium] 100 mg tablet 100 mg PO TID PRN (Reason: Spasm) 4 Days Qty: 12 0RF solifenacin 5 mg tablet 5 mg PO DAILY 14 Days Qty: 14 0RF Rx Instructions: take 1 tab daily for 7 days while stent in place ciprofloxacin HCl 500 mg tablet 500 mg PO BID 5 Days Qty: 10 0RF Interventions: ED Discharge Assessment Last Done: 09/17/22 20:19 Discharge Date/Time: 09/17/22 20:22
[2022-09-17 15:48] LABS: MANUAL DIFF FLAG NO
[2022-09-17 16:10] LABS: Alanine Aminotransferase 11 U/L (0-31); Albumin Level 4.1 g/dL (3.5-5.0); Alkaline Phosphatase 56 U/L (39-117); Anion Gap 15 (12-20); Aspartate Amino Transferase 14 U/L (5-31); Basophils Absolute Auto 0.1 X10*3/uL (0.0-0.2); Basophils Percent Auto 0.5 % (0-2); Bilirubin Direct 0.1 mg/dL (0.0-0.5); Bilirubin Total 0.4 mg/dL (0.0-1.0); Blood Urea Nitrogen 17 mg/dL (9-16); Calcium 9.7 mg/dL (8.4-10.2); Carbon Dioxide 20 mmol/L (22-29); Chloride 109 mmol/L (96-108); Creatinine Clr Calc Pharmacy 56.4; Eosinophils Absolute Auto 0.3 X10*3/uL (0.0-0.4); Eosinophils Percent Auto 1.7 % (0-4); Estimated Glomerular Filt Rate 41; Glucose Random 103 mg/dL (60-115); Hematocrit 40.5 % (37.0-47.0); Hemoglobin 13.2 g/dl (12.0-16.0); Imm Gran Abs Auto 0.09 X10*3/uL (0.00-0.03); Imm Gran Pct Auto 0.5 % (0.0-0.4); Lymphocytes Absolute Auto 4.9 X10*3/uL (1.2-4.9); Lymphocytes Percent Auto 26.9 % (20-40); Mean Corpuscular HGB Conc 32.6 g/dl (31.0-35.0); Mean Corpuscular Hemoglobin 25.9 pg (27.0-33.0); Mean Corpuscular Volume 79.4 fL (80.0-98.0); Mean Platelet Volume 11.4 fL (9.4-12.3); Monocytes Absolute Auto 1.2 X10*3/uL (0.1-1.2); Monocytes Percent Auto 6.6 % (2-11); Neutrophils Absolute Auto 11.6 x10*3/uL (2.0-8.3); Neutrophils Percent Auto 63.8 % (45-73); Platelet Count 294 X10*3/uL (160-400); Potassium 3.3 mmol/L (3.3-5.1); Sodium 141 mmol/L (135-145); Total Protein 7.1 g/dL (6.5-8.0); White Blood Count 18.2 X10*3/uL (4.8-10.8)
--- NOTE | 2022-09-17 16:40 | ECG_ITS ---
Test Reason : QT CHECK Blood Pressure : / mmHG Vent. Rate : 077 BPM Atrial Rate : 077 BPM P-R Int : 132 ms QRS Dur : 080 ms QT Int : 408 ms P-R-T Axes : 013 011 032 degrees QTc Int : 461 ms Normal sinus rhythm Nonspecific T wave abnormality Prolonged QT Abnormal ECG When compared with ECG of 08-SEP-2022 09:19, No significant change was found Referred By: Alvaro Hernandez Electronically Signed By:Osmani Quesada
[2022-09-17] MEDS: Ketorolac Tromethamine 30 MG/ML VIAL IVPUSH (16:44)
[2022-09-17] MEDS: 0.9 % Sodium Chloride 1,000 ML 999 ML IV ×2 (16:47→18:45)
[2022-09-17] MEDS: Morphine Sulfate 4 MG/ML CARTRIDGE IVPUSH (16:58)
[2022-09-17] MEDS: ondansetron HCL 4 MG/2 ML VIAL IVPUSH ×2 (16:58→19:36)
[2022-09-17 17:17] LABS: Appearance Urine Clear; Color Urine Yellow; Glucose Urine UA Negative (Negative); Leukocyte Esterase Urine Negative (Negative); Nitrite Urine Negative (Negative); Specific Gravity - Urine 1.015 (1.005-1.025); UMIC TRIGGER UACC YES; Urine Blood Trace (Negative); Urine Ketones Negative (Negative); Urine Protein Negative (Neg-Trace)
[2022-09-17 17:20] LABS: Bacteria Urine None Seen (None Seen); Hyaline Casts Urine 0-2 /LPF (0-2); Squamous Epithelial Cell Urine 0-2 /HPF (0-2); WBC Urine 0-5 /HPF (0-5)
[2022-09-17 17:25] VITALS: BP 139/79; PULSE 66; RESP 18; TEMP 36.5; O2SAT 100
[2022-09-17] MEDS: fentaNYL citrate/PF 100 MCG/2 ML VIAL 50 MCG IVPUSH (18:36)
[2022-09-17] MEDS: predniSONE 20 MG TABLET PO (18:37)
[2022-09-17] MEDS: Furosemide 20 MG TABLET 10 MG PO (18:38)
--- NOTE | 2022-09-17 18:51 | PC.NURSE ---
patient resting in bed, on tele monitor normal sinus rhythm. patient crying in pain, upon entering room. patient given lasix, fentanyl and prednisone, pt on 1000ml normal saline. patient had notable pain decrease while in the room, patient stated before pain meds given she was a 10, after pain meds given she was immediately a 4. patient ambulates to the bathroom with steady gait
[2022-09-17 19:23] VITALS: BP 129/78; PULSE 60; RESP 14; TEMP 36.7; O2SAT 100
[2022-09-17] MEDS: oxyCODONE HCl Immed Release 5 MG TABLET PO (20:16)
== END 2022-09-17 20:22 | disposition home or self-care (01) ==
PROVIDERS: Physician Assistant Medical; Emergency Provider Emergency Medicine Emergency Medical Services
DX: N13.9 Obstructive and reflux uropathy, unspecified (principal); R10.31 Right lower quadrant pain; R94.31 Abnormal electrocardiogram [ECG] [EKG]; Z79.899 Other long term (current) drug therapy
CPT/HCPCS: 36415; 74176; 80048; 80076; 81001; 85025; 93005; 96361; 96374; 96375; 99285; J1885; J2270; J2405; J3010

== ENCOUNTER → 2022-09-17 16:40 | Outpatient (BNV) | payer MEDICAID, SELFPAY | PROVIDERS: Emergency Provider Emergency Medicine Emergency Medical Services; Visit Provider Internal Medicine Cardiovascular Disease | DX: I45.81 Long QT syndrome (principal) | CPT/HCPCS: 93010 ==

== ENCOUNTER 2022-10-01 09:38 | Emergency (ER) | payer MEDICAID, SELFPAY ==
--- NOTE | ~2022-10-01 | CT_ITS ---
EXAMINATION: CT ABDOMEN AND PELVIS WITH CONTRAST CLINICAL INFORMATION: Abdominal pain. COMPARISON: None available. TECHNIQUE: Multidetector volumetric images were obtained from the superior aspect of the liver through the pubic symphysis following administration 85 mL of Omnipaque 350 intravenous contrast. Sagittal and coronal reformatted images were obtained on the technologist's workstation. Oral Contrast: No. This CT examination was performed using dose optimization techniques as appropriate, variously including the following: *Automated exposure control. *Adjustment of mA and/or kV according to patient size (this includes techniques or standardized protocols for targeted exams where dose is matched to indication/reason for exam; i.e. extremities or head). *Use of iterative reconstruction technique. DLP: 566 mGy-cm FINDINGS: LUNG BASES: The visualized lung bases are unremarkable. LIVER, GALLBLADDER, AND BILIARY TREE: The liver is normal in size, shape, and attenuation. There A few sub-5 mm hypodensities within the liver too small to characterize but likely small cysts. The gallbladder is unremarkable with no evidence of radiopaque gallstones, gallbladder wall thickening, or obvious pericholecystic inflammatory changes. PANCREAS: Unremarkable. SPLEEN: Unremarkable. ADRENAL GLANDS: Unremarkable. KIDNEYS AND URETERS: The kidneys are normal in size, shape, and attenuation. No hydronephrosis, hydroureter, or calculi seen. No perinephric stranding. There are subcentimeter hypodensities upper pole left kidney and lower pole right kidney too small to characterize but likely small cysts. BLADDER: Unremarkable. GASTROINTESTINAL TRACT: The small and large bowel are unremarkable. The appendix is is not identified. There are surgical clips at the base of the cecum. ABDOMINAL WALL: No significant hernia is appreciated. LYMPH NODES: Normal. VASCULAR: Unremarkable. PELVIC VISCERA: The uterus and adnexal regions are unremarkable. There is minimal free fluid within the pelvis. OSSEOUS STRUCTURES: Unremarkable. CT/CT abdomen pelvis w IV con IMPRESSION: No acute intra-abdominal process identified. Minimal free fluid within the pelvis of uncertain significance. Fleischner guidelines were followed.
[2022-10-01 11:11] VITALS: BP 146/77; PULSE 92; RESP 19; TEMP 36.3; O2SAT 98; BMI 21.8
--- NOTE | 2022-10-01 11:11 | ED.GENADULT ---
HPI - General Adult General Chief complaint: Abdominal Pain Stated complaint: vomiting abd pain Time Seen by Provider: 10/01/22 14:40 Source: patient Mode of arrival: ambulatory Limitations: no limitations History of Present Illness HPI narrative: Patient comes in the emergency room complaining of nausea and vomiting since last night. Patient complaining of diffuse abdominal pain. Patient denies fever chills, no UTI symptoms. Patient admits to smoking marijuana. Denies drinking alcohol. Related Data Previous Rx's Medication Instructions Recorded phenazopyridine 100 mg tablet 100 mg PO TID PRN Spasm 4 days #12 09/09/22 (Pyridium) tabs phenazopyridine 100 mg tablet 100 mg PO TID PRN Spasm 4 days #12 09/09/22 (Pyridium) tabs solifenacin 5 mg tablet 5 mg PO DAILY spasm 14 days #14 09/09/22 tabs solifenacin 5 mg tablet 5 mg PO DAILY spasm 14 days #14 09/09/22 tabs tamsulosin 0.4 mg capsule 0.4 mg PO BEDTIME 14 days #14 caps 09/09/22 tamsulosin 0.4 mg capsule 0.4 mg PO BEDTIME 14 days #14 caps 09/09/22 ketorolac 10 mg tablet 10 mg PO TID PRN pain 5 days #15 09/11/22 tabs oxybutynin chloride 5 mg tablet 5 mg PO DAILY 14 days #14 tabs 09/11/22 ciprofloxacin HCl 500 mg tablet 500 mg PO BID 5 days #10 tabs 09/16/22 oxycodone 5 mg tablet 5 mg PO Q4-6H PRN severe pain 09/17/22 (scale score 7-10) #16 tabs prochlorperazine maleate 5 mg 5 mg PO TID PRN nausea and 10/01/22 tablet (Compazine) vomiting #10 tabs Allergies Allergy/AdvReac Type Severity Reaction Status Date / Time hydromorphone [Dilaudid] Allergy Unknown hives Verified 10/01/22 11:11 metoclopramide [From Reglan] Allergy Unknown Verified 10/01/22 11:11 ibuprofen [From MOTRIN] AdvReac Mild STOMACH Verified 10/01/22 11:11 UPSET From DILAUDID Allergy Mild HIVES Uncoded 10/01/22 11:11 Motrin Allergy Unknown Unknown Uncoded 10/01/22 11:11 Review of Systems Review of Systems: Constitutional : No Weight loss, No Fever, No Chills, No Night Sweats, No Fatigue, No Malaise ENT/Mouth : No Hearing loss, No Ear Pain, No Nasal Congestion, No Sinus Pain, No Hoarseness, No sore throat, No Rhinorrhea, No Swallowing Difficulty Eyes: No Eye Pain, No Swelling, No Redness, No Foreign Body, No Discharge, No Vision Changes Cardiovascular : No Chest Pain, No SOB, No Dyspnea on Exertion, No Orthopnea, No Edema, No Palpitations Respiratory : No Cough, No Sputum, No Wheezing, No Smoke Exposure, No Dyspnea Gastrointestinal : Complaining of nausea vomiting, No Diarrhea, No Constipation, patient complaining of diffuse abdominal pain, No Hematochezia, No Melena Genitourinary : no irregular bleeding, No Dysuria, No Urinary Frequency, No Hematuria, No Urinary Incontinence, No Urgency, No Flank Pain, No Urinary Flow Changes, No Hesitancy Musculoskeletal : No joint pain, No Myalgias, No Joint Swelling Skin : No Skin Lesions, No rash Neuro : No Weakness, No Numbness, No Paresthesias, No Loss of Consciousness, No Dizziness, No Headache Psych : No Anxiety/Panic, No Depression, No SI/HI/AH/VH, No Social Issues, Heme/Lymph: No Bruising, No Bleeding,No Lymphadenopathy Endocrine : No Polyuria, No Polydipsia, No Temperature Intolerance [facility] Past Medical History Medical History Anxiety Cyclical vomiting Ureteric calculus Social History Social History Alcohol intake: never Patient Tobacco Use Status: Never used Tobacco Substance Use Type: Marijuana Advance Directives: No Physical Exam ED Vital Signs: Vital Signs - 24 hr 10/01/22 11:11 10/01/22 14:47 10/01/22 16:35 Temperature 97.4 F 98.1 F Pulse Rate 92 78 89 Respiratory Rate 19 20 16 Blood Pressure 146/77 H 118/80 126/64 Pulse Oximetry 98 96 99 Oxygen Delivery Method Room Air Room Air Room Air 10/01/22 19:32 Temperature 98.2 F Pulse Rate 70 Respiratory Rate 18 Blood Pressure 142/62 H Pulse Oximetry 99 Oxygen Delivery Method Room Air BMI result Body Mass Index 21.8 Const Other: Appearance: Alert. Oriented X3. No acute distress. Eyes: Pupils equal, round and reactive to light. ENT: Pharynx normal. Neck: Normal inspection. Neck supple. No lymph nodes noted. No crepitus CVS: Normal heart rate and rhythm. Pulses normal. Normal S1 and S2 Respiratory: No respiratory distress. Breath sounds normal. No Wheezing. No rales Abdomen: Soft, no rigidity, no distension, patient hillman has a very exaggerated response to very minimal touch to the abdomen Skin: Skin warm and dry. Normal skin color. Normal skin turgor. Extremities: No lower extremity edema. No Lacerations. No Rash Neuro: Oriented X 3. No motor deficit. No sensory deficit. Moving all extremities. No slurred speech. CN 2 through 12 grossly intact Psych: calm, cooperative, normal affect Course Course Course Narrative: RME- 37-year-old female presents for evaluation of upper abdominal pain and vomiting that started last night. Plan for labs, UA, test. ODT Zofran given Medications Administered Discontinued Medications Generic Name Dose Route Start Last Admin Trade Name Freq PRN Reason Stop Dose Admin Sodium Chloride 1,000 mls @ 999 mls/hr 10/01/22 14:50 10/01/22 17:08 Ns IVCONT 10/01/22 15:50 Infused .Q1H1M ONE Infusion Iohexol 100 ml 10/01/22 18:30 10/01/22 18:30 Iohexol 350 Mg/Ml 100 Ml Infus..Btl IV 10/01/22 18:31 85 ml ONCE ONE Administration Ketorolac Tromethamine 30 mg 10/01/22 18:14 10/01/22 18:23 Ketorolac Tromethamine 30 Mg/Ml Vial IVPUSH 10/01/22 18:15 30 mg ONCE ONE Administration Morphine Sulfate 2 mg 10/01/22 14:50 10/01/22 15:12 Morphine Sulfate 2 Mg/Ml Cartridge IVPUSH 10/01/22 14:51 2 mg ONCE ONE Administration Protocol Ondansetron HCl 4 mg 10/01/22 11:12 10/01/22 11:30 Ondansetron Odt 4 Mg Tab.Rapdis TRANSLINGU 10/01/22 11:13 Not Given ONCE ONE Ondansetron HCl 4 mg 10/01/22 18:14 10/01/22 18:23 Ondansetron Hcl 4 Mg/2 Ml Vial IVPUSH 10/01/22 18:15 4 mg ONCE ONE Administration Prochlorperazine Edisylate 10 mg 10/01/22 14:50 10/01/22 15:12 Prochlorperazine Edisylate 10 Mg/2 Ml Vial IVPUSH 10/01/22 14:51 10 mg ONCE ONE Administration Medical Decision Making Medical Decision Making [facility] Narrative: -my interpretation of labs, patient's white blood cell count 22.9, likely reactive leukocytosis. Patient has chronic leukocytosis. There is no significant abnormality in patient's chemistry. LFTs and lipase normal, no significant electrolyte abnormalities. Urinalysis negative for UTI -because of patient's elevated white blood cell count, and difficult physical exam with significantly is exaggerated response, I went ahead and ordered a CT scan. My CT scan interpretation: No no SBO, no obvious abnormalities. -radiology report, no intra-abdominal process identified -patient has been ambulatory, walking in and out of her room, tolerated p.o. fluids. Patient ready for discharge patient's symptoms likely secondary to cyclical vomiting/THC Differential Diagnosis Differential Diagnoses: The differential diagnosis associated with the presentation includes (Cyclic vomiting, gastroenteritis, gastritis, peptic ulcer perforation) Admission/Observation Consideration of admission/observation: Escalation of care including admission/observation considered (Patient seem a bit dehydrated on arrival, patient was given IV fluids, admission was considered) Lab Data [facility] Lab Attestation statement: I reviewed the patient's lab results. 10/01/22 11:33 10/01/22 11:33 Labs: Lab Results 10/01/22 10/01/22 10/01/22 Range/Units 11:33 11:33 11:33 WBC 22.9 H (4.8-10.8) X10*3/uL RBC 5.43 (4.20-5.50) X10*6/uL Hgb 14.4 (12.0-16.0) g/dl Hct 42.8 (37.0-47.0) % MCV 78.8 L (80.0-98.0) fL MCH 26.5 L (27.0-33.0) pg MCHC 33.6 (31.0-35.0) g/dl RDW 14.9 (11.0-16.0) % Plt Count 360 (160-400) X10*3/uL MPV 11.6 (9.4-12.3) fL Immature Gran % (Auto) 0.8 H (0.0-0.4) % Neut % (Auto) 85.8 H (45-73) % Lymph % (Auto) 9.7 L (20-40) % [place]pherson % (Auto) 3.3 (2-11) % Eos % (Auto) 0.0 (0-4) % Baso % (Auto) 0.4 (0-2) % Lymph # (Auto) 2.2 (1.2-4.9) X10*3/uL [place]pherson # (Auto) 0.8 (0.1-1.2) X10*3/uL Eos # (Auto) 0.0 (0.0-0.4) X10*3/uL Baso # (Auto) 0.1 (0.0-0.2) X10*3/uL Abs Immat Gran (auto) 0.18 H (0.00-0.03) X10*3/uL Absolute Neuts (auto) 19.6 H (2.0-8.3) x10*3/uL Absolute Nucleated RBC 0.000 (0.0-0.012) X10*3/uL Nucleated RBC % (auto) 0.0 (0.0-0.2) /100WBC Sodium 139 (135-145) mmol/L Potassium 4.0 D (3.3-5.1) mmol/L Chloride 111 H (96-108) mmol/L Carbon Dioxide 20 L (22-29) mmol/L Anion Gap 12 (12-20) BUN 9 (9-16) mg/dL Creatinine 0.77 (0.5-1.4) mg/dL Estim Creat Clear Calc 95.5 Estimated GFR > 60 Random Glucose 147 H (60-115) mg/dL Calcium 9.4 (8.4-10.2) mg/dL Total Bilirubin 0.8 (0.0-1.0) mg/dL AST 12 (5-31) U/L ALT 8 (0-31) U/L Alkaline Phosphatase 50 (39-117) U/L Total Protein 6.6 (6.5-8.0) g/dL Albumin 3.9 (3.5-5.0) g/dL Lipase 13 (8-78) U/L Urine Color Yellow Urine Appearance Hazy Urine pH 7.5 (5.0-9.0) Ur Specific [place] 1.015 (1.005-1.025) Urine Protein Negative (Neg-Trace) mg/dL Urine Glucose (UA) Negative (Negative) mg/dL Urine Ketones >=80 (Negative) mg/dL Urine Blood Trace (Negative) Urine Nitrite Negative (Negative) Ur Leukocyte Esterase Negative (Negative) Urine RBC 11-20 H (0-2) /HPF Urine WBC 0-5 (0-5) /HPF Ur Squamous Epith Cells 3-5 (0-2) /HPF Urine Bacteria 4+ (None Seen) Hyaline Casts 0-2 (0-2) /LPF Urine Test (NEGATIVE) Urine Opiates Screen (Not Detect) Urine Fentanyl Screen (Not Detect) Ur Barbiturates Screen (Not Detect) Ur Phencyclidine Scrn (Not Detect) Ur Amphetamines Screen (Not Detect) U Benzodiazepines Scrn (Not Detect) Urine Cocaine Screen (Not Detect) U Marijuana (THC) Screen (Not Detect) 10/01/22 10/01/22 Range/Units 11:33 11:33 WBC (4.8-10.8) X10*3/uL RBC (4.20-5.50) X10*6/uL Hgb (12.0-16.0) g/dl Hct (37.0-47.0) % MCV (80.0-98.0) fL MCH (27.0-33.0) pg MCHC (31.0-35.0) g/dl RDW (11.0-16.0) % Plt Count (160-400) X10*3/uL MPV (9.4-12.3) fL Immature Gran % (Auto) (0.0-0.4) % Neut % (Auto) (45-73) % Lymph % (Auto) (20-40) % Mcpherson % (Auto) (2-11) % Eos % (Auto) (0-4) % Baso % (Auto) (0-2) % Lymph # (Auto) (1.2-4.9) X10*3/uL [place] # (Auto) (0.1-1.2) X10*3/uL Eos # (Auto) (0.0-0.4) X10*3/uL Baso # (Auto) (0.0-0.2) X10*3/uL Abs Immat Gran (auto) (0.00-0.03) X10*3/uL Absolute Neuts (auto) (2.0-8.3) x10*3/uL Absolute Nucleated RBC (0.0-0.012) X10*3/uL Nucleated RBC % (auto) (0.0-0.2) /100WBC Sodium (135-145) mmol/L Potassium (3.3-5.1) mmol/L Chloride (96-108) mmol/L Carbon Dioxide (22-29) mmol/L Anion Gap (12-20) BUN (9-16) mg/dL Creatinine (0.5-1.4) mg/dL Estim Creat Clear Calc Estimated GFR Random Glucose (60-115) mg/dL Calcium (8.4-10.2) mg/dL Total Bilirubin (0.0-1.0) mg/dL AST (5-31) U/L ALT (0-31) U/L Alkaline Phosphatase (39-117) U/L Total Protein (6.5-8.0) g/dL Albumin (3.5-5.0) g/dL Lipase (8-78) U/L Urine Color Urine Appearance Urine pH (5.0-9.0) Ur Specific [place] (1.005-1.025) Urine Protein (Neg-Trace) mg/dL Urine Glucose (UA) (Negative) mg/dL Urine Ketones (Negative) mg/dL Urine Blood (Negative) Urine Nitrite (Negative) Ur Leukocyte Esterase (Negative) Urine RBC (0-2) /HPF Urine WBC (0-5) /HPF Ur Squamous Epith Cells (0-2) /HPF Urine Bacteria (None Seen) Hyaline Casts (0-2) /LPF Urine Test NEGATIVE (NEGATIVE) Urine Opiates Screen Not Detected (Not Detect) Urine Fentanyl Screen Not Detected (Not Detect) Ur Barbiturates Screen Not Detected (Not Detect) Ur Phencyclidine Scrn Not Detected (Not Detect) Ur Amphetamines Screen Not Detected (Not Detect) U Benzodiazepines Scrn Not Detected (Not Detect) Urine Cocaine Screen Not Detected (Not Detect) U Marijuana (THC) Screen POSITIVE H (Not Detect) Independent Interpretation I performed an independent interpretation of an: CT Scan Radiology Impression Discussion of test interpretation with radiology: I have reviewed the radiologist's reading. Radiologist Impression: FINDINGS: LUNG BASES: The visualized lung bases are unremarkable.? LIVER, GALLBLADDER, AND BILIARY TREE: The liver is normal in size, shape, and attenuation. There A few sub-5 mm hypodensities within the liver too small to characterize but likely small cysts. The gallbladder is unremarkable with no evidence of radiopaque gallstones, gallbladder wall thickening, or obvious pericholecystic inflammatory changes.? PANCREAS: Unremarkable.? SPLEEN: Unremarkable.? ADRENAL GLANDS: Unremarkable.? KIDNEYS AND URETERS: The kidneys are normal in size, shape, and attenuation. No hydronephrosis, hydroureter, or calculi seen. No perinephric stranding. There are subcentimeter hypodensities upper pole left kidney and lower pole right kidney too small to characterize but likely small cysts. BLADDER: Unremarkable.? GASTROINTESTINAL TRACT: The small and large bowel are unremarkable. The appendix is is not identified. There are surgical clips at the base of the cecum. ABDOMINAL WALL: No significant hernia is appreciated.? LYMPH NODES: Normal. VASCULAR: Unremarkable. PELVIC VISCERA: The uterus and adnexal regions are unremarkable. There is minimal free fluid within the pelvis. OSSEOUS STRUCTURES: Unremarkable.? CT/CT abdomen pelvis w IV con IMPRESSION: No acute intra-abdominal process identified. ? Minimal free fluid within the pelvis of uncertain significance. ? Fleischner guidelines were followed. Critical Care Time Critical Care Time Critical Care Time: Yes Total Critical Care Time: 60 Attestation: I have personally provided critical care time. Time includes review of lab data, radiology results, discussion with consultants, and monitoring for potential decompensation. Intervention performed as documented. Discharge Plan Discharge Clinical Impression: Cyclical vomiting Patient Disposition: Home, Self-Care Instructions: Cyclic Vomiting Syndrome (ED) Additional Instructions: Please follow-up with your primary care physician tomorrow. If you have any worsening or new symptoms, please return to the emergency room or call 911 Prescriptions: New prochlorperazine maleate [Compazine] 5 mg tablet 5 mg PO TID PRN (Reason: nausea and vomiting) Qty: 10 0RF No Action oxybutynin chloride 5 mg tablet 5 mg PO DAILY 14 Days Qty: 14 0RF ketorolac 10 mg tablet 10 mg PO TID PRN (Reason: pain) 5 Days Qty: 15 0RF oxycodone 5 mg tablet 5 mg PO Q4-6H PRN (Reason: severe pain (scale score 7-10)) Qty: 16 0RF Rx Instructions: Partial Fill upon patient request. tamsulosin 0.4 mg capsule 0.4 mg PO BEDTIME 14 Days Qty: 14 0RF phenazopyridine [Pyridium] 100 mg tablet 100 mg PO TID PRN (Reason: Spasm) 4 Days Qty: 12 0RF solifenacin 5 mg tablet 5 mg PO DAILY 14 Days Qty: 14 0RF Rx Instructions: take 1 tab daily for 7 [address] in [address] tamsulosin 0.4 mg capsule 0.4 mg PO BEDTIME 14 Days Qty: 14 0RF phenazopyridine [Pyridium] 100 mg tablet 100 mg PO TID PRN (Reason: Spasm) 4 Days Qty: 12 0RF solifenacin 5 mg tablet 5 mg PO DAILY 14 Days Qty: 14 0RF Rx Instructions: take 1 tab daily for 7 days while stent in place ciprofloxacin HCl 500 mg tablet 500 mg PO BID 5 Days Qty: 10 0RF
[2022-10-01 11:45] LABS: MANUAL DIFF FLAG NO
[2022-10-01 11:48] LABS: Appearance Urine Hazy; Color Urine Yellow; Glucose Urine UA Negative (Negative); Leukocyte Esterase Urine Negative (Negative); Nitrite Urine Negative (Negative); PH 7.5 (5.0-9.0); Specific Gravity - Urine 1.015 (1.005-1.025); UMIC TRIGGER UACC YES; Urine Blood Trace (Negative); Urine Ketones >=80 mg/dL (Negative); Urine Protein Negative (Neg-Trace)
[2022-10-01 11:49] LABS: UPreg QC Valid YES; Urine Pregnancy NEGATIVE (NEGATIVE)
[2022-10-01 11:55] LABS: Bacteria Urine 4+ (None Seen); Hyaline Casts Urine 0-2 /LPF (0-2); WBC Urine 0-5 /HPF (0-5)
[2022-10-01 12:05] LABS: Alanine Aminotransferase 8 U/L (0-31); Albumin Level 3.9 g/dL (3.5-5.0); Alkaline Phosphatase 50 U/L (39-117); Anion Gap 12 (12-20); Aspartate Amino Transferase 12 U/L (5-31); Bilirubin Total 0.8 mg/dL (0.0-1.0); Blood Urea Nitrogen 9 mg/dL (9-16); Calcium 9.4 mg/dL (8.4-10.2); Carbon Dioxide 20 mmol/L (22-29); Chloride 111 mmol/L (96-108); Creatinine Clr Calc Pharmacy 95.5; Estimated Glomerular Filt Rate > 60; Glucose Random 147 mg/dL (60-115); Lipase 13 U/L (8-78); Sodium 139 mmol/L (135-145); Total Protein 6.6 g/dL (6.5-8.0)
[2022-10-01 14:47] VITALS: BP 118/80; PULSE 78; RESP 20; O2SAT 96
[2022-10-01] MEDS: Prochlorperazine Edisylate 10 MG/2 ML VIAL IVPUSH (15:12)
[2022-10-01] MEDS: Morphine Sulfate 2 MG/ML CARTRIDGE IVPUSH (15:12)
[2022-10-01] MEDS: 0.9 % Sodium Chloride 1,000 ML 999 ML IVCONT (15:13)
[2022-10-01 15:21] LABS: Amphetamine Screen Urine Not Detected (Not Detect); Barbiturates, Urine Not Detected (Not Detect); Benzodiazepines Screen Urine Not Detected (Not Detect); Cannabinoid Screen Urine POSITIVE (Not Detect); Cocaine Screen Urine Not Detected (Not Detect); Fentanyl, urine Not Detected (Not Detect); Opiate Screen Urine Not Detected (Not Detect); Phencyclidine Screen Urine Not Detected (Not Detect)
--- NOTE | 2022-10-01 15:24 | PC.NURSE ---
pt complaining of 10/10 abd pain, crying and restless on the stretcher. iv established, medicated per the mar. pt now resting quietly in room.
[2022-10-01 15:41] LABS: Basophils Absolute Auto 0.1 X10*3/uL (0.0-0.2); Basophils Percent Auto 0.4 % (0-2); Hematocrit 42.8 % (37.0-47.0); Hemoglobin 14.4 g/dl (12.0-16.0); Imm Gran Abs Auto 0.18 X10*3/uL (0.00-0.03); Imm Gran Pct Auto 0.8 % (0.0-0.4); Lymphocytes Absolute Auto 2.2 X10*3/uL (1.2-4.9); Lymphocytes Percent Auto 9.7 % (20-40); Mean Corpuscular HGB Conc 33.6 g/dl (31.0-35.0); Mean Corpuscular Hemoglobin 26.5 pg (27.0-33.0); Mean Corpuscular Volume 78.8 fL (80.0-98.0); Mean Platelet Volume 11.6 fL (9.4-12.3); Monocytes Absolute Auto 0.8 X10*3/uL (0.1-1.2); Monocytes Percent Auto 3.3 % (2-11); Neutrophils Absolute Auto 19.6 x10*3/uL (2.0-8.3); Neutrophils Percent Auto 85.8 % (45-73); Platelet Count 360 X10*3/uL (160-400); Red Blood Count 5.43 X10*6/uL (4.20-5.50); Red Cell Distribution Width 14.9 % (11.0-16.0); White Blood Count 22.9 X10*3/uL (4.8-10.8)
[2022-10-01 16:35] VITALS: BP 126/64; PULSE 89; RESP 16; TEMP 36.7; O2SAT 99
--- NOTE | 2022-10-01 17:53 | PC.NURSE ---
pt sleeping on and off, will shout out when awake for more pain medications. this rn to the room, pt sleeping at this time
[2022-10-01] MEDS: Ketorolac Tromethamine 30 MG/ML VIAL IVPUSH (18:23)
[2022-10-01] MEDS: ondansetron HCL 4 MG/2 ML VIAL IVPUSH (18:23)
[2022-10-01] MEDS: iohexoL 350 MG/ML 100 ML INFUS..BTL IV (18:30)
--- NOTE | 2022-10-01 18:46 | PC.NURSE ---
patient sleeping in bed, respirations equal and unlabored.
[2022-10-01 19:32] VITALS: BP 142/62; PULSE 70; RESP 18; TEMP 36.8; O2SAT 99
== END 2022-10-01 20:10 | disposition home or self-care (01) ==
PROVIDERS: Physician Assistant; Emergency Provider Emergency Medicine; PCP Physician Assistant
DX: R11.15 Cyclical vomiting syndrome unrelated to migraine (principal); F12.90 Cannabis use, unspecified, uncomplicated; F41.9 Anxiety disorder, unspecified; Z79.899 Other long term (current) drug therapy
CPT/HCPCS: 36415; 74177; 80053; 80307; 81001; 81025; 83690; 85025; 96361; 96374; 96375; 99284; J1885; J2270; J2405; Q9967

== ENCOUNTER 2022-10-03 10:07 | Emergency (ER) | payer MEDICAID, SELFPAY ==
[2022-10-03 10:21] VITALS: BP 133/80; PULSE 89; RESP 18; TEMP 37; O2SAT 99; BMI 26.9
--- NOTE | 2022-10-03 11:12 | ED_ITS ---
HPI - Nausea/Vomiting/Diarrhea General Chief complaint: Nausea/Vomiting/Diarrhea Stated complaint: non stop throwing/ weakness Time Seen by Provider: 10/03/22 10:47 Source: patient Mode of arrival: ambulatory Limitations: no limitations History of Present Illness HPI Narrative: 37 yo female with PMHx of anxiety, cyclical vomiting presenting to the ED today complaining of nausea, nonbloody vomiting, and diffuse abdominal pain x4 days. Symptoms improve with heating pad and hot showers. Admits to daily marijuana u se. Seen at [facility] 2 days ago and discharge home with compazine however states her symptoms have continued. Denies chance of . Denies fever, chills, chest pain, SOB, urinary dysuria or hematuria, constipation or diarrhea. MD elicited complaint: nausea, vomiting and abdominal pain Pertinent past history: cyclical vomiting Associated nausea: Yes Associated abdominal pain: Yes Location of pain: diffuse Pain consistency: constant Exacerbating factors: vomiting Relieving factors: hot shower/bath Related Data Previous Rx's Medication Instructions Recorded phenazopyridine 100 mg tablet 100 mg PO TID PRN Spasm 4 days #12 09/09/22 (Pyridium) tabs phenazopyridine 100 mg tablet 100 mg PO TID PRN Spasm 4 days #12 09/09/22 (Pyridium) tabs solifenacin 5 mg tablet 5 mg PO DAILY spasm 14 days #14 09/09/22 tabs solifenacin 5 mg tablet 5 mg PO DAILY spasm 14 days #14 09/09/22 tabs tamsulosin 0.4 mg capsule 0.4 mg PO BEDTIME 14 days #14 caps 09/09/22 tamsulosin 0.4 mg capsule 0.4 mg PO BEDTIME 14 days #14 caps 09/09/22 ketorolac 10 mg tablet 10 mg PO TID PRN pain 5 days #15 09/11/22 tabs oxybutynin chloride 5 mg tablet 5 mg PO DAILY 14 days #14 tabs 09/11/22 ciprofloxacin HCl 500 mg tablet 500 mg PO BID 5 days #10 tabs 09/16/22 oxycodone 5 mg tablet 5 mg PO Q4-6H PRN severe pain 09/17/22 (scale score 7-10) #16 tabs prochlorperazine maleate 5 mg 5 mg PO TID PRN nausea and 10/01/22 tablet (Compazine) vomiting #10 tabs promethazine 25 mg rectal 25 mg OK Q6H PRN nausea and 10/03/22 suppository vomiting #12 ea Allergies Allergy/AdvReac Type Severity Reaction Status Date / Time hydromorphone [Dilaudid] Allergy Unknown hives Verified 10/01/22 11:11 metoclopramide [From Reglan] Allergy Unknown Verified 10/01/22 11:11 ibuprofen [From MOTRIN] AdvReac Mild STOMACH Verified 10/01/22 11:11 UPSET From DILAUDID Allergy Mild HIVES Uncoded 10/01/22 11:11 Motrin Allergy Unknown Unknown Uncoded 10/01/22 11:11 Review of Systems Review of Systems: Yes all other systems are reviewed and are negative Gastrointestinal: Gastrointestinal: Reports nausea PMFSH Past Medical History Attestation statement: The following information was validated with the patient. Source: old records reviewed and nursing notes reviewed Medical History Anxiety Cyclical vomiting Ureteric calculus Social History Social History Alcohol intake: never Patient Tobacco Use Status: Never used Tobacco Smoked in Last 30 Days: No Use of substances other than those prescribed or required for medical reasons: No Substance Use Type: Marijuana Substance Use Frequency Other:: last used wed Last Used Substance: Days (ago) Advance Directives: No Physical Exam Vital Signs: Vital Signs: Last Vital Signs Temp 98.6 F 10/03/22 10:21 Pulse 81 10/03/22 14:08 Resp 16 10/03/22 14:08 BP 118/58 L 10/03/22 14:08 Pulse Ox 99 10/03/22 14:08 O2 Del Method Room Air 10/03/22 14:08 BMI result Body Mass Index 26.9 Appearance: Alert. Oriented X3. No acute distress. Patient writhing in pain on ED bed with ice pack on abdomen Head: normocephalic, atraumatic. Eyes: Pupils equal, round and reactive to light. ENT: Pharynx normal. No tonsillar swelling or exudate. Neck: Normal inspection. Neck supple. CVS: Normal heart rate and rhythm. Pulses normal. Respiratory: No respiratory distress. Breath sounds normal. Abdomen: abdomen with erythemaous reticular rash a at home hotpack application, soft, nondistended, diffusely tender to palpation, no rebound tenderness or guarding, +BS x4 Skin: Skin warm and dry. Normal skin color. Normal skin turgor. No rashes. Extremities: No lower extremity edema. No joint swelling. Neuro/psych: Oriented X 3. No motor deficit. No sensory deficit. CN II-XII intact. Normal speech and cognition. Course Reevaluation(s) Reevaluation #1: Patient placed in physician observation. Her potassium was low at 2.6. She received 60 of oral potassium and kept it down. She is slowly receiving 20 mEq use of KCl but not tolerating due to burning. She reports ongoing nausea and pain but no recurrent vomiting. Additional meds ordered for symptomatic relief. She is agreeable to repeat potassium at this time. Will reassess once meds are given and her potassium is recheck. Time: 14:27 Reevaluation #2: Physician observation discontinued at this time. She had an increase in her potassium and additional p.o. potassium has been ordered. She is tolerating p.o.. She is feeling better. She is stable for discharge home. Patient agrees with plan. Time: 15:17 Medications Administered Discontinued Medications Generic Name Dose Route Start Last Admin Trade Name Scottq PRN Reason Stop Dose Admin Diphenhydramine HCl 50 mg 10/03/22 11:00 10/03/22 11:17 Diphenhydramine Hcl 50 Mg/Ml Vial IVPUSH 10/03/22 11:01 50 mg ONCE ONE Administration Promethazine HCl 12.5 mg/ 50.5 mls @ 202 mls/hr 10/03/22 11:01 10/03/22 11:46 Sodium Chloride IV 10/03/22 11:02 Infused ONCE ONE Infusion Potassium Chloride 10 meq in 100 mls @ 100 mls/hr 10/03/22 11:45 10/03/22 14:56 Potassium Chloride/H20 IV 10/03/22 13:44 Infused Q1H KANDY Infusion Ketorolac Tromethamine 30 mg 10/03/22 14:26 10/03/22 14:42 Ketorolac Tromethamine 30 Mg/Ml Vial IVPUSH 10/03/22 14:27 30 mg ONCE ONE Administration Lorazepam 2 mg 10/03/22 11:00 10/03/22 11:17 Lorazepam 2 Mg/Ml Vial IVPUSH 10/03/22 11:01 2 mg ONCE ONE Administration Ondansetron HCl 4 mg 10/03/22 10:35 10/03/22 11:16 Ondansetron Odt 4 Mg Tab.Rapdis TRANSLINGU 10/03/22 10:36 4 mg ONCE ONE Administration Potassium Chloride 60 meq 10/03/22 11:36 10/03/22 11:52 Potassium Chloride Er 20 Meq Tab.Er.Prt PO 10/03/22 11:37 60 meq ONCE ONE Administration Prochlorperazine Edisylate 10 mg 10/03/22 14:26 10/03/22 14:42 Prochlorperazine Edisylate 10 Mg/2 Ml Vial IVPUSH 10/03/22 14:27 10 mg ONCE ONE Administration Medical Decision Making Medical Decision Making [facility] Narrative: 37 yo female with PMHx of anxiety, cyclical vomiting presenting to the ED today complaining of nausea, nonbloody vomiting, and diffuse abdominal pain x4 day. Vital signs stable. Patient writhing in pain on ED bed with ice pack on abdomen, abdomen with erythema and heat-like rash c/w at home hotpack application, soft, nondistended, diffusely tender to palpation, no rebound tenderness or guarding, +BS x4 Plan: labs, UA, pain control, antiemetic CBC showing mild leukocytosis to 12.7, likely reactive from vomiting. No concern for infection at this time. Potassium noted to be 2.6 > IV and PO potassium chloride ordered for repletion. Chemistry otherwise WNL. UA negative for infection however there is trace blood. Urine negative. Repeat potassium 3.1. Another 40 mg PO potassium chloride given. Patient tolerated this and is feeling much better. Comfortable discharge home with antiemetics and potassium rich foods. If she continues to vomit she may need additional potassium supplementation. Patient was counseled on this. She is stable for discharge at this time. Differential Diagnosis Differential Diagnoses: The differential diagnosis associated with the presentation includes cyclical vomiting, , viral syndrome, anxiety, electrolyte abnormalities, dehydration Admission/Observation Consideration of admission/observation: Escalation of care including admi ssion/observation considered Significant hypokalemia, admission considered Lab Data [facility] Lab Attestation statement: I reviewed the patient's lab results. Improving leukocytosis, significant hypokalemia, no RADHAMES 10/03/22 11:11 10/03/22 11:11 Labs: Lab Results 10/03/22 10/03/22 10/03/22 Range/Units 11:11 11:11 13:49 WBC 12.7 H (4.8-10.8) X10*3/uL RBC 5.67 H (4.20-5.50) X10*6/uL Hgb 14.8 (12.0-16.0) g/dl Hct 43.0 (37.0-47.0) % MCV 75.8 L (80.0-98.0) fL MCH 26.1 L (27.0-33.0) pg MCHC 34.4 (31.0-35.0) g/dl RDW 14.4 (11.0-16.0) % Plt Count 329 (160-400) X10*3/uL MPV 10.7 (9.4-12.3) fL Immature Gran % (Auto) 0.6 H (0.0-0.4) % Neut % (Auto) 67.2 (45-73) % Lymph % (Auto) 17.5 L (20-40) % [place] % (Auto) 14.2 H (2-11) % Eos % (Auto) 0.2 (0-4) % Baso % (Auto) 0.3 (0-2) % Lymph # (Auto) 2.2 (1.2-4.9) X10*3/uL [place] # (Auto) 1.8 H (0.1-1.2) X10*3/uL Eos # (Auto) 0.0 (0.0-0.4) X10*3/uL Baso # (Auto) 0.0 (0.0-0.2) X10*3/uL Abs Immat Gran (auto) 0.07 H (0.00-0.03) X10*3/uL Absolute Neuts (auto) 8.5 H (2.0-8.3) x10*3/uL Absolute Nucleated RBC 0.000 (0.0-0.012) X10*3/uL Nucleated RBC % (auto) 0.0 (0.0-0.2) /100WBC Smear Tech's Comments VERIFIED Sodium 137 (135-145) mmol/L Potassium 2.6 L D (3.3-5.1) mmol/L Chloride 97 (96-108) mmol/L Carbon Dioxide 25 (22-29) mmol/L Anion Gap 18 (12-20) BUN 13 (9-16) mg/dL Creatinine 0.81 (0.5-1.4) mg/dL Estim Creat Clear Calc 100.7 Estimated GFR > 60 Random Glucose 110 (60-115) mg/dL Calcium 10.0 D (8.4-10.2) mg/dL Total Bilirubin 1.4 H (0.0-1.0) mg/dL Direct Bilirubin 0.4 (0.0-0.5) mg/dL AST 16 (5-31) U/L ALT 13 (0-31) U/L Alkaline Phosphatase 57 (39-117) U/L Total Protein 7.6 (6.5-8.0) g/dL Albumin 4.6 (3.5-5.0) g/dL Lipase 10 (8-78) U/L Urine Color Yellow Urine Appearance Clear Urine pH >= 9.0 (5.0-9.0) Ur Specific [place] 1.010 (1.005-1.025) Urine Protein Trace (Neg-Trace) mg/dL Urine Glucose (UA) Negative (Negative) mg/dL Urine Ketones 15 (Negative) mg/dL Urine Blood Small (1+) H (Negative) Urine Nitrite Negative (Negative) Ur Leukocyte Esterase Trace H (Negative) Urine RBC >20 H (0-2) /HPF Urine WBC 0-5 (0-5) /HPF Ur Squamous Epith Cells 0-2 (0-2) /HPF Urine Bacteria None Seen (None Seen) Hyaline Casts 0-2 (0-2) /LPF Urine Test (NEGATIVE) 10/03/22 10/03/22 Range/Units 13:49 14:40 WBC (4.8-10.8) X10*3/uL RBC (4.20-5.50) X10*6/uL Hgb (12.0-16.0) g/dl Hct (37.0-47.0) % MCV (80.0-98.0) fL MCH (27.0-33.0) pg MCHC (31.0-35.0) g/dl RDW (11.0-16.0) % Plt Count (160-400) X10*3/uL MPV (9.4-12.3) fL Immature Gran % (Auto) (0.0-0.4) % Neut % (Auto) (45-73) % Lymph % (Auto) (20-40) % [place] % (Auto) (2-11) % Eos % (Auto) (0-4) % Baso % (Auto) (0-2) % Lymph # (Auto) (1.2-4.9) X10*3/uL [place] # (Auto) (0.1-1.2) X10*3/uL Eos # (Auto) (0.0-0.4) X10*3/uL Baso # (Auto) (0.0-0.2) X10*3/uL Abs Immat Gran (auto) (0.00-0.03) X10*3/uL Absolute Neuts (auto) (2.0-8.3) x10*3/uL Absolute Nucleated RBC (0.0-0.012) X10*3/uL Nucleated RBC % (auto) (0.0-0.2) /100WBC Smear Tech's Comments Sodium (135-145) mmol/L Potassium 3.1 L (3.3-5.1) mmol/L Chloride (96-108) mmol/L Carbon Dioxide (22-29) mmol/L Anion Gap (12-20) BUN (9-16) mg/dL Creatinine (0.5-1.4) mg/dL Estim Creat Clear Calc Estimated GFR Random Glucose (60-115) mg/dL Calcium (8.4-10.2) mg/dL Total Bilirubin (0.0-1.0) mg/dL Direct Bilirubin (0.0-0.5) mg/dL AST (5-31) U/L ALT (0-31) U/L Alkaline Phosphatase (39-117) U/L Total Protein (6.5-8.0) g/dL Albumin (3.5-5.0) g/dL Lipase (8-78) U/L Urine Color Urine Appearance Urine pH (5.0-9.0) Ur Specific [place] (1.005-1.025) Urine Protein (Neg-Trace) mg/dL Urine Glucose (UA) (Negative) mg/dL Urine Ketones (Negative) mg/dL Urine Blood (Negative) Urine Nitrite (Negative) Ur Leukocyte Esterase (Negative) Urine RBC (0-2) /HPF Urine WBC (0-5) /HPF Ur Squamous Epith Cells (0-2) /HPF Urine Bacteria (None Seen) Hyaline Casts (0-2) /LPF Urine Test NEGATIVE (NEGATIVE) External Record Review External record reviewed: Outpatient record Prescription Management I considered prescription management with: Pain Medication and Other (antiemetics) Critical Care Time Critical Care Time Critical Care Time: Yes Total Critical Care Time: 36 Attestation: I have personally provided critical care time exclusive of time spent on separately billable procedures. Time includes review of lab data, monitoring of electrolytes, treatment and re-evaluation and monitoring for potential decompensation. Intervention performed as documented. Discharge Plan Discharge Clinical Impression: Cyclical vomiting, Hypokalemia Patient Disposition: Home, Self-Care Instructions: Potassium Content of Foods List (ED), Hypokalemia (ED), Acute Nausea and Vomiting (ED) Additional Instructions: Your lab workup today showed low potassium level. This did increase with oral potassium supplementation. Recommend eating potassium rich food for the next few days. See the list provided. Use the prescribed rectal suppository medication as needed for nausea. Do not smoke marijuana, this can cause severe cyclical vomiting that is difficult to treat. If you develop new or worsening symptoms call 911 or come back to the ER for further evaluation. Prescriptions: New promethazine 25 mg suppository 25 mg OK Q6H PRN (Reason: nausea and vomiting) Qty: 12 0RF No Action oxybutynin chloride 5 mg tablet 5 mg PO DAILY 14 Days Qty: 14 0RF ketorolac 10 mg tablet 10 mg PO TID PRN (Reason: pain) 5 Days Qty: 15 0RF oxycodone 5 mg tablet 5 mg PO Q4-6H PRN (Reason: severe pain (scale score 7-10)) Qty: 16 0RF Rx Instructions: Partial Fill upon patient request. tamsulosin 0.4 mg capsule 0.4 mg PO BEDTIME 14 Days Qty: 14 0RF phenazopyridine [Pyridium] 100 mg tablet 100 mg PO TID PRN (Reason: Spasm) 4 Days Qty: 12 0RF solifenacin 5 mg tablet 5 mg PO DAILY 14 Days Qty: 14 0RF Rx Instructions: take 1 tab daily for 7 [address] in [address] tamsulosin 0.4 mg capsule 0.4 mg PO BEDTIME 14 Days Qty: 14 0RF phenazopyridine [Pyridium] 100 mg tablet 100 mg PO TID PRN (Reason: Spasm) 4 Days Qty: 12 0RF solifenacin 5 mg tablet 5 mg PO DAILY 14 Days Qty: 14 0RF Rx Instructions: take 1 tab daily for 7 days while stent in place prochlorperazine maleate [Compazine] 5 mg tablet 5 mg PO TID PRN (Reason: nausea and vomiting) Qty: 10 0RF ciprofloxacin HCl 500 mg tablet 500 mg PO BID 5 Days Qty: 10 0RF Referrals: Physician,Unknown J [Primary Care Provider] -
[2022-10-03] MEDS: Ondansetron ODT 4 MG TAB.RAPDIS TRANSLINGU (11:16)
[2022-10-03 11:17] LABS: Basophils Percent Auto 0.3 % (0-2); Eosinophils Percent Auto 0.2 % (0-4); Hemoglobin 14.8 g/dl (12.0-16.0); Imm Gran Abs Auto 0.07 X10*3/uL (0.00-0.03); Imm Gran Pct Auto 0.6 % (0.0-0.4); Lymphocytes Absolute Auto 2.2 X10*3/uL (1.2-4.9); Lymphocytes Percent Auto 17.5 % (20-40); MANUAL DIFF FLAG SCAN; Mean Corpuscular HGB Conc 34.4 g/dl (31.0-35.0); Mean Corpuscular Hemoglobin 26.1 pg (27.0-33.0); Mean Corpuscular Volume 75.8 fL (80.0-98.0); Mean Platelet Volume 10.7 fL (9.4-12.3); Monocytes Absolute Auto 1.8 X10*3/uL (0.1-1.2); Monocytes Percent Auto 14.2 % (2-11); Neutrophils Absolute Auto 8.5 x10*3/uL (2.0-8.3); Neutrophils Percent Auto 67.2 % (45-73); Platelet Count 329 X10*3/uL (160-400); Red Blood Count 5.67 X10*6/uL (4.20-5.50); Red Cell Distribution Width 14.4 % (11.0-16.0); SCAN SMEAR FLAG 1; White Blood Count 12.7 X10*3/uL (4.8-10.8)
[2022-10-03] MEDS: LORazepam 2 MG/ML VIAL IVPUSH (11:17)
[2022-10-03] MEDS: diphenhydrAMINE HCL 50 MG/ML VIAL IVPUSH (11:17)
[2022-10-03 11:34] LABS: Alanine Aminotransferase 13 U/L (0-31); Albumin Level 4.6 g/dL (3.5-5.0); Alkaline Phosphatase 57 U/L (39-117); Anion Gap 18 (12-20); Aspartate Amino Transferase 16 U/L (5-31); Bilirubin Direct 0.4 mg/dL (0.0-0.5); Bilirubin Total 1.4 mg/dL (0.0-1.0); Blood Urea Nitrogen 13 mg/dL (9-16); Carbon Dioxide 25 mmol/L (22-29); Chloride 97 mmol/L (96-108); Creatinine Clr Calc Pharmacy 100.7; Estimated Glomerular Filt Rate > 60; Glucose Random 110 mg/dL (60-115); Lipase 10 U/L (8-78); Potassium 2.6 mmol/L (3.3-5.1); Sodium 137 mmol/L (135-145); Total Protein 7.6 g/dL (6.5-8.0)
--- NOTE | 2022-10-03 11:45 | PC.NURSE ---
Alert and oriented, arrived from home reporting non stop vomiting since wed after smoking weed. Patient reports being unable to tolerate food or fluids. rates lower abdominal pain at 10/10, medicated per apr
[2022-10-03] MEDS: Potassium Chloride ER 20 MEQ TAB.ER.PRT 60 MEQ PO (11:52)
[2022-10-03 11:55] LABS: SLIDE REVIEW VERIFIED
[2022-10-03] MEDS: Potassium Chloride/H20 10 MEQ/100 ML PIGGYBACK 100 MEQ IV ×2 (12:13→13:48)
[2022-10-03 13:57] LABS: Appearance Urine Clear; Color Urine Yellow; Glucose Urine UA Negative (Negative); Leukocyte Esterase Urine Trace (Negative); Nitrite Urine Negative (Negative); PH >= 9.0 (5.0-9.0); UMIC TRIGGER UACC YES; Urine Blood Small (1+) (Negative); Urine Ketones 15 mg/dL (Negative); Urine Protein Trace mg/dL (Neg-Trace)
[2022-10-03 13:59] LABS: UPreg QC Valid YES; Urine Pregnancy NEGATIVE (NEGATIVE)
[2022-10-03 14:00] LABS: Bacteria Urine None Seen (None Seen); Hyaline Casts Urine 0-2 /LPF (0-2); RBC Urine >20 /HPF (0-2); Squamous Epithelial Cell Urine 0-2 /HPF (0-2); WBC Urine 0-5 /HPF (0-5)
[2022-10-03 14:08] VITALS: BP 118/58; PULSE 81; RESP 16; O2SAT 99
[2022-10-03] MEDS: Prochlorperazine Edisylate 10 MG/2 ML VIAL IVPUSH (14:42)
[2022-10-03] MEDS: Ketorolac Tromethamine 30 MG/ML VIAL IVPUSH (14:42)
[2022-10-03 14:59] LABS: Potassium 3.1 mmol/L (3.3-5.1)
[2022-10-03] MEDS: Potassium Chloride ER 10 MEQ TABLET.ER 40 MEQ PO (15:34)
--- NOTE | 2022-10-03 15:39 | PC.NURSE ---
Discharge plan reviewed with patient who verbalized understanding
[2022-10-03 17:32] LABS: Amphetamine Screen Urine Not Detected (Not Detect); Barbiturates, Urine Not Detected (Not Detect); Benzodiazepines Screen Urine Not Detected (Not Detect); Cannabinoid Screen Urine POSITIVE (Not Detect); Cocaine Screen Urine Not Detected (Not Detect); Fentanyl, urine Not Detected (Not Detect); Opiate Screen Urine Not Detected (Not Detect); Phencyclidine Screen Urine Not Detected (Not Detect)
== END 2022-10-03 15:43 | disposition home or self-care (01) ==
PROVIDERS: Physician Assistant; Emergency Provider Student in an Organized Health Care Education/Training Program
DX: R11.15 Cyclical vomiting syndrome unrelated to migraine (principal); E87.6 Hypokalemia; F12.90 Cannabis use, unspecified, uncomplicated; Z79.899 Other long term (current) drug therapy
CPT/HCPCS: 36415; 80048; 80076; 80307; 81001; 81025; 83690; 84132; 85025; 96365; 96366; 96367; 96375; 99284; J1200; J1885; J2060; J2550

== ENCOUNTER 2022-11-24 09:21 | Emergency (ER) | payer MEDICAID, SELFPAY ==
[2022-11-24] VITALS (13 sets, daily range): BP systolic 105–167; BP diastolic 59–89; PULSE 61–119; RESP 16–18; TEMP 36.4–37.1; O2SAT 97–100; BMI 27.9
--- NOTE | ~2022-11-24 | XR_ITS ---
EXAMINATION: XR CHEST CLINICAL INFORMATION: Tachycardia COMPARISON: None available. TECHNIQUE: Frontal view of the chest was obtained. FINDINGS: No significant abnormality is noted involving the heart, lungs, mediastinum, bony thorax or soft tissues. XR/XR chest 1V IMPRESSION: Unremarkable chest examination.
--- NOTE | 2022-11-24 09:32 | ECG_ITS ---
Test Reason : tachycardia Blood Pressure : / mmHG Vent. Rate : 092 BPM Atrial Rate : 092 BPM P-R Int : 138 ms QRS Dur : 078 ms QT Int : 374 ms P-R-T Axes : 032 -01 050 degrees QTc Int : 462 ms Normal sinus rhythm with sinus arrhythmia Nonspecific T wave abnormality Abnormal ECG When compared with ECG of 17-SEP-2022 16:46, No significant change was found Referred By: Palak Brizuela Electronically Signed By:SHANI MUSE MD
[2022-11-24 10:09] LABS: MANUAL DIFF FLAG NO
[2022-11-24 10:14] LABS: Basophils Absolute Auto 0.1 X10*3/uL (0.0-0.2); Basophils Percent Auto 0.6 % (0-2); Eosinophils Absolute Auto 0.1 X10*3/uL (0.0-0.4); Eosinophils Percent Auto 0.6 % (0-4); Hematocrit 43.4 % (37.0-47.0); Hemoglobin 14.6 g/dl (12.0-16.0); Imm Gran Abs Auto 0.01 X10*3/uL (0.00-0.03); Imm Gran Pct Auto 0.1 % (0.0-0.4); Lymphocytes Absolute Auto 3.3 X10*3/uL (1.2-4.9); Lymphocytes Percent Auto 37.6 % (20-40); Mean Corpuscular HGB Conc 33.6 g/dl (31.0-35.0); Mean Corpuscular Hemoglobin 26.6 pg (27.0-33.0); Mean Corpuscular Volume 79.1 fL (80.0-98.0); Mean Platelet Volume 11.6 fL (9.4-12.3); Monocytes Absolute Auto 0.6 X10*3/uL (0.1-1.2); Monocytes Percent Auto 6.6 % (2-11); Neutrophils Absolute Auto 4.8 x10*3/uL (2.0-8.3); Neutrophils Percent Auto 54.5 % (45-73); Platelet Count 269 X10*3/uL (160-400); Red Blood Count 5.49 X10*6/uL (4.20-5.50); Red Cell Distribution Width 14.1 % (11.0-16.0); White Blood Count 8.8 X10*3/uL (4.8-10.8)
[2022-11-24 10:28] LABS: COVID-19 Test Negative (Negative); IDNOW Serial# 55D5AD1C; IDNOW Serial# 9DB6401D; Influenza A Negative (Negative)
[2022-11-24 10:29] LABS: Influenza B2 Negative (Negative)
[2022-11-24 10:33] LABS: Alanine Aminotransferase 12 U/L (0-31); Albumin Level 4.6 g/dL (3.5-5.0); Alkaline Phosphatase 54 U/L (39-117); Anion Gap 16 (12-20); Aspartate Amino Transferase 18 U/L (5-31); Bilirubin Direct 0.2 mg/dL (0.0-0.5); Bilirubin Total 0.7 mg/dL (0.0-1.0); Blood Urea Nitrogen 10 mg/dL (9-16); Calcium 10.1 mg/dL (8.4-10.2); Carbon Dioxide 19 mmol/L (22-29); Chloride 108 mmol/L (96-108); Creatinine Clr Calc Pharmacy 101.2; Estimated Glomerular Filt Rate > 60; Glucose Random 104 mg/dL (60-115); Potassium 3.6 mmol/L (3.3-5.1); Sodium 139 mmol/L (135-145); Total Protein 7.7 g/dL (6.5-8.0)
[2022-11-24 10:36] LABS: Troponin-I High Sensitivity < 2.7 ng/L (<3.5-17.0)
[2022-11-24 10:49] LABS: TSH reflex Free T4 0.59 uIU/mL (0.32-4.0)
--- NOTE | 2022-11-24 13:38 | ED_ITS ---
HPI - Arrhythmia/Palpitations General Chief Complaint: Arrhythmia/Palpitations Stated Complaint: Fast heart rate 134 Time Seen by Provider: 11/24/22 13:35 Source: patient Mode of arrival: ambulatory Limitations: no limitations History of Present Illness HPI narrative: 37 year old female with pmhx significant for cyclical vomiting presents to the ED today for evaluation of intermittent fast heart rate x3 weeks. Reports multiple episodes of increased heart rate, palpitations, shortness of breath, nausea, and near syncope lasting only a few minutes. These episodes occur with minimal exertion and do not occur at rest. This morning while at work she began to feel shaky, nauseous and checked her heart rate which was noted to be 139. She took one sublingual Zofran prior to arrival. At present she reports left- sided chest pain and palpitations. Denies fever, chills, headache, chest pain, palpitations, dyspnea, wheezing, vomiting, abdominal pain, lower extremity pain or swelling. Denies recent travel or long car rides. Denies OCP or hormone use. Denies chance of . Denies illicit drug use. Related Data Previous Rx's Medication Instructions Recorded phenazopyridine 100 mg tablet 100 mg PO TID PRN Spasm 4 days #12 09/09/22 (Pyridium) tabs phenazopyridine 100 mg tablet 100 mg PO TID PRN Spasm 4 days #12 09/09/22 (Pyridium) tabs solifenacin 5 mg tablet 5 mg PO DAILY spasm 14 days #14 09/09/22 tabs solifenacin 5 mg tablet 5 mg PO DAILY spasm 14 days #14 09/09/22 tabs tamsulosin 0.4 mg capsule 0.4 mg PO BEDTIME 14 days #14 caps 09/09/22 tamsulosin 0.4 mg capsule 0.4 mg PO BEDTIME 14 days #14 caps 09/09/22 ketorolac 10 mg tablet 10 mg PO TID PRN pain 5 days #15 09/11/22 tabs oxybutynin chloride 5 mg tablet 5 mg PO DAILY 14 days #14 tabs 09/11/22 ciprofloxacin HCl 500 mg tablet 500 mg PO BID 5 days #10 tabs 09/16/22 oxycodone 5 mg tablet 5 mg PO Q4-6H PRN severe pain 09/17/22 (scale score 7-10) #16 tabs prochlorperazine maleate 5 mg 5 mg PO TID PRN nausea and 10/01/22 tablet (Compazine) vomiting #10 tabs promethazine 25 mg rectal 25 mg AK Q6H PRN nausea and 10/03/22 suppository vomiting #12 ea Allergies Allergy/AdvReac Type Severity Reaction Status Date / Time hydromorphone [Dilaudid] Allergy Unknown hives Verified 10/01/22 11:11 metoclopramide [From Reglan] Allergy Unknown Verified 10/01/22 11:11 ibuprofen [From MOTRIN] AdvReac Mild STOMACH Verified 10/01/22 11:11 UPSET From DILAUDID Allergy Mild HIVES Uncoded 10/01/22 11:11 Motrin Allergy Unknown Unknown Uncoded 10/01/22 11:11 Review of Systems 2 Review of Systems: Constitutional: No fever, chills, fatigue, night sweats, weight changes ENT/Mouth: No ear pain, hearing loss, nasal congestion, sinus pain, rhinorrhea, sore throat Eyes: No eye pain, swelling, redness, vision changes, discharge Cardio: +chest pain, +palpitations, No SAMUELS, orthopnea, peripheral edema Pulm: No SOB, cough, sputum, wheezing, dyspnea, hemoptysis GI: +nausea, No vomiting, hematemesis, abdominal pain, diarrhea, constipation, hematochezia, melena : No irregular bleeding, dysuria, frequency, urgency, hesitancy, hematuria, flank pain, urinary flow changes, urinary incontinence or retention MSK: No back pain, neck pain, joint pain, myalgias Skin: No lesions, rashes Neuro: No weakness, numbness, paresthesias, LOC, dizziness, headache All other systems reviewed and are negative. [facility] Past Medical History Attestation statement: The following information was validated with the patient. Source: old records reviewed and nursing notes reviewed Medical History Cyclical vomiting Anxiety Ureteric calculus Social History Social History Alcohol intake: never Patient Tobacco Use Status: Never used Tobacco Smoked in Last 30 Days: No Use of substances other than those prescribed or required for medical reasons: Yes Substance Use Type: Marijuana Advance Directives: No Advance Directives Information Provided: No Patient : No Physical Exam 2 Vital Signs: Vital Signs: Last Vital Signs Temp 98.8 F 11/24/22 21:05 Pulse 61 11/24/22 21:05 Resp 16 11/24/22 21:05 BP 140/77 H 11/24/22 21:05 Pulse Ox 98 11/24/22 21:05 O2 Del Method Room Air 11/24/22 21:05 BMI result Body Mass Index 27.9 Vital signs stable. Const: General: cooperative, no acute distress, alert and awake; No diaphoretic Orientation/consciousness: patient oriented x3 Limitations: no limitations HEENT: Head: Yes normal to inspection Ears: hearing grossly normal bilaterally General nose exam: Normal external nose present Mouth: Normal oral and palatal mucosa present and moist mucous membranes Eyes: General: appearance normal, both eyes and all related structures C onjunctivae: conjunctivae normal Sclerae: sclerae normal Pupils: Equal, round and reactive pupils present EOM: EOMs intact bilaterally Neck: Neck: Yes normal visual inspection, Yes no lymphadenopathy, Yes no meningeal signs and Yes no JVD Thyroid: Thyroid normal Carotids: normal carotid upstroke Chest: Chest palpation & inspection: normal inspection of the chest, normal palpation of entire chest wall, no crepitus and no tenderness Resp: Effort & Inspection: normal respiratory effort, able to speak in complete sentences and no tracheal deviation Auscultation: clear to auscultation bilaterally, no crackles, no rales, no rhonchi and no wheezes Cardio: Jugular venous distension: no JVD Rate: regular rate Rhythm: r egular rhythm Peripheral pulses: radial pulses present, posterior tibial pulses present and dorsalis pedis present GI: Inspection: Yes normal to inspection and No visible pulsation Palpation (GI): Soft to palpation and nontender Skin: General skin exam: no rashes or lesions noted Neuro: General: patient oriented x3, gait normal, moves all extremities and no meningeal signs Cranial nerves: Yes CN's II-XII intact bilaterally and Yes Equal, round and reactive pupils present Coordination: [id number] test normal, [id number] test normal and Normal rapid alternating movements of the distal upper extremity present (Neuro) Extrem: General: Yes normal to inspection, Yes capillary refill normal and Yes no clubbing, cyanosis or edema Course Course Course Narrative: 1108-- CBC without leukocytosis or anemia. Chemistry without acute electrolyte abnormalities requiring intervention. Troponin negative x1. TSH within normal limits. COVID and influenza negative. EKG with normal sinus rhythm with sinus arrhythmia, borderline tachycardic with a rate of 92 BPM, QT 374, no acute ischemic changes. Unremarkable chest x-ray. > patient receiving Toradol and Zofran for pain/nausea. > due to patient's near-syncope and intermittent palpitations will order D- dimer. > concern for postural orthostatic tachycardia syndrome > will assess orthostatic vital signs. > will plan for IV fluid hydration. 1431-- Orthostatic vital signs completed. Blood pressure remained stable however her rate increased from 79 (supine) to 119 (standing). At this time I suspect postural orthostatic tachycardia syndrome. Still awaiting D-dimer to rule out PE. Due to patient being symptomatic will consult Cardiology. 1444-- D-dimer negative. I do not suspect VTE. > plan to administer 2 L of IV fluids and re-evaluate orthostasis. > discussed case with Dr. Ayoub who agrees with outpatient follow-up. > I also discussed this case with my attending physician Dr. Fong, who agrees with plan. 1617-- patient signed out to my colleague KISHAN James, pending repeat ortho vital signs. Patient still feeling as though she is shaky and nauseous after receiving 2 L of IV fluids. Orthostatics were performed, heart rate still tachycardic. Will administer 1 more L of IV fluids. Patient reports that she is feeling anxious, will medicate with her home medication, hydroxyzine 25 mg p.o.. Reevaluation(s) Reevaluation #1: Patient feeling much better after receiving 3 L of IV fluids. She is no longer tachycardic upon standing. She is feeling comfortable for discharge. Advised to follow-up with electrotherapist, answered all questions. Patient stable for discharge. Time: 20:41 Medications Administered Discontinued Medications Generic Name Dose Route Start Last Admin Trade Name Freq PRN Reason Stop Dose Admin Hydroxyzine HCl 25 mg 11/24/22 19:09 11/24/22 19:27 Hydroxyzine Hcl 25 Mg Tablet PO 11/24/22 19:10 25 mg ONCE ONE Administration Sodium Chloride 1,000 mls @ 999 mls/hr 11/24/22 15:15 11/24/22 16:48 Ns IV 11/24/22 16:15 Infused .Q1H1M KANDY Infusion Sodium Chloride 1,000 mls @ 999 mls/hr 11/24/22 15:15 11/24/22 18:36 Ns IV 11/24/22 16:15 Infused .Q1H1M KANDY Infusion Sodium Chloride 1,000 mls @ 999 mls/hr 11/24/22 19:03 11/24/22 21:01 Ns IV 11/24/22 20:03 Infused .Q1H1M ONE Infusion Ketorolac Tromethamine 15 mg 11/24/22 13:50 11/24/22 14:27 Ketorolac Tromethamine 15 Mg/Ml Vial IVPUSH 11/24/22 13:51 15 mg ONCE ONE Administration Ondansetron HCl 4 mg 11/24/22 13:50 11/24/22 14:27 Ondansetron Hcl 4 Mg/2 Ml Vial IVPUSH 11/24/22 13:51 4 mg ONCE ONE Administration Medical Decision Making Medical Decision Making [facility] Narrative: 37 year old female with pmhx significant for cyclical vomiting presents to the ED today for evaluation of intermittent fast tachycardia x3 weeks. Vital signs initially notable for tachycardia to 110, now normalized to 86. Patient is afebrile and normotensive. Patient is nontoxic appearing and in no acute distress. Lungs are clear to auscultation bilaterally. No JVD. RRR. There is no reproducible chest wall tenderness. No peripheral edema. Negative Homans sign bilaterally. Clinical concern for arrhythmia vs anxiety vs postural tachycardia syndrome vs ACS vs pneumonia vs PE vs DVT. Unlikely dissection, pneumothorax, pericarditis, myocarditis. Basic labs, troponin, urine , EKG, chest x-ray obtained in triage. Given unremarkable workup, will order D- dimer to rule out PE along with orthostatic vital signs to rule out postural orthostatic tachycardia syndrome. Differential Diagnosis Differential Diagnoses: The differential diagnosis associated with the presentation includes As above. Admission/Observation Not indicated. Lab Data [facility] Lab Attestation statement: I reviewed the patient's lab results. As above. 11/24/22 10:02 11/24/22 10:02 Labs: Lab Results 11/24/22 11/24/22 11/24/22 Range/Units 10:02 10:04 14:01 WBC 8.8 (4.8-10.8) X10*3/uL RBC 5.49 (4.20-5.50) X10*6/uL Hgb 14.6 (12.0-16.0) g/dl Hct 43.4 (37.0-47.0) % MCV 79.1 L (80.0-98.0) fL MCH 26.6 L (27.0-33.0) pg MCHC 33.6 (31.0-35.0) g/dl RDW 14.1 (11.0-16.0) % Plt Count 269 (160-400) X10*3/uL MPV 11.6 (9.4-12.3) fL Immature Gran % (Auto) 0.1 (0.0-0.4) % Neut % (Auto) 54.5 (45-73) % Lymph % (Auto) 37.6 (20-40) % [place] % (Auto) 6.6 (2-11) % Eos % (Auto) 0.6 (0-4) % Baso % (Auto) 0.6 (0-2) % Lymph # (Auto) 3.3 (1.2-4.9) X10*3/uL [place] # (Auto) 0.6 (0.1-1.2) X10*3/uL Eos # (Auto) 0.1 (0.0-0.4) X10*3/uL Baso # (Auto) 0.1 (0.0-0.2) X10*3/uL Abs Immat Gran (auto) 0.01 (0.00-0.03) X10*3/uL Absolute Neuts (auto) 4.8 (2.0-8.3) x10*3/uL Absolute Nucleated RBC 0.000 (0.0-0.012) X10*3/uL Nucleated RBC % (auto) 0.0 (0.0-0.2) /100WBC D-Dimer High Sensitivty 220 NG/ML Sodium 139 (135-145) mmol/L Potassium 3.6 (3.3-5.1) mmol/L Chloride 108 (96-108) mmol/L Carbon Dioxide 19 L (22-29) mmol/L Anion Gap 16 (12-20) BUN 10 (9-16) mg/dL Creatinine 0.82 (0.5-1.4) mg/dL Estim Creat Clear Calc 101.2 Estimated GFR > 60 Random Glucose 104 (60-115) mg/dL Calcium 10.1 (8.4-10.2) mg/dL Magnesium 2.0 (1.6-2.6) mg/dL Total Bilirubin 0.7 (0.0-1.0) mg/dL Direct Bilirubin 0.2 (0.0-0.5) mg/dL AST 18 (5-31) U/L ALT 12 (0-31) U/L Alkaline Phosphatase 54 (39-117) U/L Troponin I High Sens < 2.7 (<3.5-17.0) ng/L Total Protein 7.7 (6.5-8.0) g/dL Albumin 4.6 (3.5-5.0) g/dL TSH 0.59 (0.32-4.0) uIU/mL Urine Test (NEGATIVE) COVID-19 (JAGDEEP) Negative (Negative) COVID-19 Clin Com See Note Influenza Type A (JARAD) Negative (Negative) Influenza Type B (JARAD) Negative (Negative) Influenza A & B Note See Note 11/24/22 Range/Units 17:34 WBC (4.8-10.8) X10*3/uL RBC (4.20-5.50) X10*6/uL Hgb (12.0-16.0) g/dl Hct (37.0-47.0) % MCV (80.0-98.0) fL MCH (27.0-33.0) pg MCHC (31.0-35.0) g/dl RDW (11.0-16.0) % Plt Count (160-400) X10*3/uL MPV (9.4-12.3) fL Immature Gran % (Auto) (0.0-0.4) % Neut % (Auto) (45-73) % Lymph % (Auto) (20-40) % [place] % (Auto) (2-11) % Eos % (Auto) (0-4) % Baso % (Auto) (0-2) % Lymph # (Auto) (1.2-4.9) X10*3/uL [place] # (Auto) (0.1-1.2) X10*3/uL Eos # (Auto) (0.0-0.4) X10*3/uL Baso # (Auto) (0.0-0.2) X10*3/uL Abs Immat Gran (auto) (0.00-0.03) X10*3/uL Absolute Neuts (auto) (2.0-8.3) x10*3/uL Absolute Nucleated RBC (0.0-0.012) X10*3/uL Nucleated RBC % (auto) (0.0-0.2) /100WBC D-Dimer High Sensitivty NG/ML Sodium (135-145) mmol/L Potassium (3.3-5.1) mmol/L Chloride (96-108) mmol/L Carbon Dioxide (22-29) mmol/L Anion Gap (12-20) BUN (9-16) mg/dL Creatinine (0.5-1.4) mg/dL Estim Creat Clear Calc Estimated GFR Random Glucose (60-115) mg/dL Calcium (8.4-10.2) mg/dL Magnesium (1.6-2.6) mg/dL Total Bilirubin (0.0-1.0) mg/dL Direct Bilirubin (0.0-0.5) mg/dL AST (5-31) U/L ALT (0-31) U/L Alkaline Phosphatase (39-117) U/L Troponin I High Sens (<3.5-17.0) ng/L Total Protein (6.5-8.0) g/dL Albumin (3.5-5.0) g/dL TSH (0.32-4.0) uIU/mL Urine Test NEGATIVE (NEGATIVE) COVID-19 (JAGDEEP) (Negative) COVID-19 Clin Com Influenza Type A (JARAD) (Negative) Influenza Type B (JARAD) (Negative) Influenza A & B Note Independent Interpretation I performed an independent interpretation of an: EKG Interpretation: EKG with normal sinus rhythm with sinus arrhythmia, borderline tachycardic with a rate of 92 BPM, QT 374, no acute ischemic changes. Chest x-ray without infiltrate or consolidation, normal cardiac silhouette, agree with radiologist's interpretation. Radiology Impression Discussion of test interpretation with radiology: I have reviewed the radiologist's reading. Radiologist Impression: XR chest 1V IMPRESSION: Unremarkable chest examination. External Record Review External record reviewed: Inpatient record Prescription Management I considered prescription management with: Pain Medication Social Determinants Patient?s care significantly limited by Social Determinants of Health including: Other Social Determinant of Health Critical Care Time Critical Care Time Critical Care Time: No Discharge Plan Discharge Clinical Impression: Tachycardia, Heart palpitations Patient Disposition: Home, Self-Care Instructions: Heart Palpitations (DC) Additional Instructions: Your chest x-ray was unremarkable. Your cardiac enzymes were normal today. Your EKG was normal. Your orthostatic vital signs showed an increase in her heart rate. You were given 3 L of IV fluids. Make sure to keep up with your fluid intake. This will help prevent increase in heart rate. Your been provided with a referral to Cardiology. Please follow-up with them outpatient. Call them to make an appointment. They will not call you. Additionally follow-up with your primary care provider. Return to the emergency department if your symptoms persist or worsen. Indicates the emergency call 911. Prescriptions: No Action oxybutynin chloride 5 mg tablet 5 mg PO DAILY 14 Days Qty: 14 0RF ketorolac 10 mg tablet 10 mg PO TID PRN (Reason: pain) 5 Days Qty: 15 0RF oxycodone 5 mg tablet 5 mg PO Q4-6H PRN (Reason: severe pain (scale score 7-10)) Qty: 16 0RF Rx Instructions: Partial Fill upon patient request. promethazine 25 mg suppository 25 mg AK Q6H PRN (Reason: nausea and vomiting) Qty: 12 0RF tamsulosin 0.4 mg capsule 0.4 mg PO BEDTIME 14 Days Qty: 14 0RF phenazopyridine [Pyridium] 100 mg tablet 100 mg PO TID PRN (Reason: Spasm) 4 Days Qty: 12 0RF solifenacin 5 mg tablet 5 mg PO DAILY 14 Days Qty: 14 0RF Rx Instructions: take 1 tab daily for 7 days [address] stent in place tamsulosin 0.4 mg capsule 0.4 mg PO BEDTIME 14 Days Qty: 14 0RF phenazopyridine [Pyridium] 100 mg tablet 100 mg PO TID PRN (Reason: Spasm) 4 Days Qty: 12 0RF solifenacin 5 mg tablet 5 mg PO DAILY 14 Days Qty: 14 0RF Rx Instructions: take 1 tab daily for 7 days while stent in place prochlorperazine maleate [Compazine] 5 mg tablet 5 mg PO TID PRN (Reason: nausea and vomiting) Qty: 10 0RF ciprofloxacin HCl 500 mg tablet 500 mg PO BID 5 Days Qty: 10 0RF Referrals: [facility] [place] Cardiovascular Services [Provider Group] Physician,Unknown J [Primary Care Provider] - Stand Alone Forms: Work/School Release Interventions: ED Discharge Assessment Last Done: 11/24/22 21:13
[2022-11-24] MEDS: ondansetron HCL 4 MG/2 ML VIAL IVPUSH (14:27)
[2022-11-24] MEDS: Ketorolac Tromethamine 15 MG/ML VIAL IVPUSH (14:27)
[2022-11-24 14:30] LABS: D Dimer High Sensitivity 220 NG/ML
[2022-11-24] MEDS: 0.9 % Sodium Chloride 1,000 ML 999 ML IV ×3 (15:12→19:29)
--- NOTE | 2022-11-24 17:00 | MHC.EDTECH ---
THIS PCT ASSUMED CARE OF PT AT 1500 ,VITALS TAKEN ,PT RESTING QUIETLY IN BED ,PT SAID AHE NOT ABLE TO GIVE URINE SAMPLE AT THIS TIME .
--- NOTE | 2022-11-24 17:35 | MHC.EDTECH ---
PATIENT REPEATED ORTHOSTATICS DONE ,AND URINE SAMPLE COLLECTED AND SENT TO LAB .
[2022-11-24 17:58] LABS: UPreg QC Valid YES; Urine Pregnancy NEGATIVE (NEGATIVE)
[2022-11-24] MEDS: hydrOXYzine HCL 25 MG TABLET PO (19:27)
--- NOTE | 2022-11-24 20:00 | PC.NURSE ---
this rn assumed care of pt @ 1900. pt calm and cooperative. ivf infusing.
--- NOTE | 2022-11-24 21:12 | PC.NURSE ---
iv removed at time of discharge. vss. pt denies pain. pt calm and cooperative. pt ambulatory at discharge. pt provided with discharge packet and work note. pt verbalized understanding of discharge plan
== END 2022-11-24 21:31 | disposition home or self-care (01) ==
PROVIDERS: Physician Assistant; Physician Assistant Medical; Emergency Provider Emergency Medicine Emergency Medical Services
DX: R00.2 Palpitations (principal); R00.0 Tachycardia, unspecified; R11.15 Cyclical vomiting syndrome unrelated to migraine; Z11.52 Encounter for screening for COVID-19
CPT/HCPCS: 36415; 71045; 80048; 80076; 81025; 83735; 84443; 84484; 85025; 85379; 87502; 87635; 93005; 96361; 96374; 96375; 99285; J1885; J2405

== ENCOUNTER 2022-11-27 17:28 | Emergency (ER) | payer MEDICAID, SELFPAY ==
--- NOTE | ~2022-11-27 | XR_ITS ---
EXAMINATION: XR CHEST CLINICAL INFORMATION: Chest pain. COMPARISON: Chest radiograph 11/24/2022. TECHNIQUE: 2 views of the chest were obtained. FINDINGS: Normal appearance of the cardiomediastinal silhouette. No focal airspace opacity, pleural effusion or pneumothorax. No acute osseous findings. Visualized upper abdomen is within normal limits. XR/XR chest 2V IMPRESSION: No acute cardiopulmonary findings.
--- NOTE | 2022-11-27 17:34 | ECG_ITS ---
Test Reason : TACHYCARDIA Blood Pressure : / mmHG Vent. Rate : 118 BPM Atrial Rate : 118 BPM P-R Int : 096 ms QRS Dur : 078 ms QT Int : 438 ms P-R-T Axes : 000 046 071 degrees QTc Int : 613 ms Sinus tachycardia with short IN Nonspecific ST and T wave abnormality Abnormal ECG When compared with ECG of 24-NOV-2022 09:56, Heart rate has increased Referred By: Generic ED Physician Electronically Signed By:SHANI MUSE MD
[2022-11-27 18:07] VITALS: BP 152/69; PULSE 118; RESP 16; TEMP 36.4; O2SAT 99; BMI 27.4
--- NOTE | 2022-11-27 18:16 | ED.GENADULT ---
HPI - General Adult General Chief complaint: Arrhythmia/Palpitations Stated complaint: Palpitations, chest pain Time Seen by Provider: 11/27/22 20:37 Source: patient Mode of arrival: ambulatory Limitations: no limitations History of Present Illness HPI narrative: Patient has cyclic vomiting syndrome for last 2 weeks noticed whenever she stands up and walk her dog when heart start racing and checked her heart rate goes to about 150 patient was seen here 2 days ago workup was negative patient received IV fluids well in the ER and advised to drink plenty of fluids which she has been doing but today again prior to arrival her heart rate went to 145 no syncope no chest pain patient has made an appointment with ambulance operations supervisor for next week Related Data Previous Rx's Medication Instructions Recorded phenazopyridine 100 mg tablet 100 mg PO TID PRN Spasm 4 days #12 09/09/22 (Pyridium) tabs phenazopyridine 100 mg tablet 100 mg PO TID PRN Spasm 4 days #12 09/09/22 (Pyridium) tabs solifenacin 5 mg tablet 5 mg PO DAILY spasm 14 days #14 09/09/22 tabs solifenacin 5 mg tablet 5 mg PO DAILY spasm 14 days #14 09/09/22 tabs tamsulosin 0.4 mg capsule 0.4 mg PO BEDTIME 14 days #14 caps 09/09/22 tamsulosin 0.4 mg capsule 0.4 mg PO BEDTIME 14 days #14 caps 09/09/22 ketorolac 10 mg tablet 10 mg PO TID PRN pain 5 days #15 09/11/22 tabs oxybutynin chloride 5 mg tablet 5 mg PO DAILY 14 days #14 tabs 09/11/22 ciprofloxacin HCl 500 mg tablet 500 mg PO BID 5 days #10 tabs 09/16/22 oxycodone 5 mg tablet 5 mg PO Q4-6H PRN severe pain 09/17/22 (scale score 7-10) #16 tabs prochlorperazine maleate 5 mg 5 mg PO TID PRN nausea and 10/01/22 tablet (Compazine) vomiting #10 tabs promethazine 25 mg rectal 25 mg NC Q6H PRN nausea and 10/03/22 suppository vomiting #12 ea metoprolol succinate 25 mg 25 mg PO DAILY #30 tabs 11/27/22 tablet,extended release 24 hr (Toprol XL) Allergies Allergy/AdvReac Type Severity Reaction Status Date / Time hydromorphone [Dilaudid] Allergy Unknown hives Verified 10/01/22 11:11 metoclopramide [From Reglan] Allergy Unknown Verified 10/01/22 11:11 ibuprofen [From MOTRIN] AdvReac Mild STOMACH Verified 10/01/22 11:11 UPSET From DILAUDID Allergy Mild HIVES Uncoded 10/01/22 11:11 Motrin Allergy Unknown Unknown Uncoded 10/01/22 11:11 Review of Systems Review of Systems: Yes all other systems are reviewed and are negative [facility] Past Medical History Medical History Cyclical vomiting Anxiety Ureteric calculus Social History Social History Alcohol intake: never Patient Tobacco Use Status: Never used Tobacco Smoked in Last 30 Days: No Substance Use Type: Marijuana Advance Directives: No Advance Directives Information Provided: No Physical Exam ED Vital Signs: Vital Signs - 24 hr 11/27/22 18:07 11/27/22 20:35 11/27/22 21:06 Temperature 97.6 F Pulse Rate 118 H 88 77 Respiratory Rate 16 17 12 Blood Pressure 152/69 H 133/59 L 134/83 Pulse Oximetry 99 98 99 Oxygen Delivery Method Room Air Room Air Room Air BMI result Body Mass Index 27.4 Appearance: Alert. Oriented X3. No acute distress. Eyes: PERRLA, No Nystagmus ENT: Pharynx normal. Oral Mucosa moist Neck: Normal inspection. Neck supple. CVS: Normal heart rate and rhythm. Pulses normal. Respiratory: No respiratory distress. Equal air entry bilateral, no wheezing/rales/rhonchi Abdomen: Soft and nontender. Bowel sounds are present, Skin: Skin warm and dry. Normal skin color. Normal skin turgor. Extremities: No lower extremity edema. No calf tenderness Neuro: Oriented X 3. Course Course Course Narrative: RME performed by Briseyda King PA-C. Patient is a 37 year old assigned female at presenting to the emergency department with palpitations. Patient was recently seen here with a negative D-dimer but symptoms persist. Labs ordered. Patient placed back in the waiting room pending room availability and results. Medications Administered Discontinued Medications Generic Name Dose Route Start Last Admin Trade Name Hali PRN Reason Stop Dose Admin Metoprolol Tartrate 25 mg 11/27/22 20:54 11/27/22 21:07 Metoprolol Tartrate 25 Mg Tablet PO 11/27/22 20:55 25 mg ONCE ONE Administration Protocol Medical Decision Making Medical Decision Making [facility] Narrative: Patient clinically with POTS as well in the ER patient stood up and heart rate went to 140s and while lying down it was in 80s patient felt slightly lightheaded according to patient she been drinking lot of fluids at home and still having this episodes when she stands up will discharge patient home on 25 mg of metoprolol advised to keep appontment with ambulance operations supervisor and follow Lab Data [facility] Lab Attestation statement: I reviewed the patient's lab results. 11/27/22 19:00 11/27/22 19:00 Labs: Lab Results 11/27/22 Range/Units 19:00 WBC 11.6 H (4.8-10.8) X10*3/uL RBC 5.44 (4.20-5.50) X10*6/uL Hgb 14.4 (12.0-16.0) g/dl Hct 42.7 (37.0-47.0) % MCV 78.5 L (80.0-98.0) fL MCH 26.5 L (27.0-33.0) pg MCHC 33.7 (31.0-35.0) g/dl RDW 14.5 (11.0-16.0) % Plt Count 269 (160-400) X10*3/uL MPV 12.2 (9.4-12.3) fL Immature Gran % (Auto) 1.0 H (0.0-0.4) % Neut % (Auto) 54.2 (45-73) % Lymph % (Auto) 37.3 (20-40) % [place] % (Auto) 5.5 (2-11) % Eos % (Auto) 1.4 (0-4) % Baso % (Auto) 0.6 (0-2) % Lymph # (Auto) 4.3 (1.2-4.9) X10*3/uL [place] # (Auto) 0.6 (0.1-1.2) X10*3/uL Eos # (Auto) 0.2 (0.0-0.4) X10*3/uL Baso # (Auto) 0.1 (0.0-0.2) X10*3/uL Abs Immat Gran (auto) 0.11 H (0.00-0.03) X10*3/uL Absolute Neuts (auto) 6.3 (2.0-8.3) x10*3/uL Absolute Nucleated RBC 0.000 (0.0-0.012) X10*3/uL Nucleated RBC % (auto) 0.0 (0.0-0.2) /100WBC PT 12.0 (11.1-13.3) SEC INR 1.0 (0.9-1.1) Sodium 140 (135-145) mmol/L Potassium 3.8 (3.3-5.1) mmol/L Chloride 109 H (96-108) mmol/L Carbon Dioxide 21 L (22-29) mmol/L Anion Gap 14 (12-20) BUN 15 (9-16) mg/dL Creatinine 0.76 (0.5-1.4) mg/dL Estim Creat Clear Calc 108.3 Estimated GFR > 60 Random Glucose 105 (60-115) mg/dL Lactic Acid 1.9 (0.5-2.0) mmol/L Calcium 9.8 (8.4-10.2) mg/dL Magnesium 2.2 (1.6-2.6) mg/dL Total Bilirubin 0.6 (0.0-1.0) mg/dL AST 12 (5-31) U/L ALT 10 (0-31) U/L Alkaline Phosphatase 52 (39-117) U/L Troponin I High Sens < 2.7 (<3.5-17.0) ng/L Total Protein 7.4 (6.5-8.0) g/dL Albumin 4.5 (3.5-5.0) g/dL Independent Interpretation I performed an independent interpretation of an: EKG Interpretation: Sinus tachycardia 118 beats per minute normal interval normal axis no acute ST wave changes Discharge Plan Discharge Clinical Impression: POTS (postural orthostatic tachycardia syndrome) Patient Disposition: Home, Self-Care Instructions: Supraventricular Tachycardia (ED) Additional Instructions: Likely you have orthostatic tachycardia syndrome You need to drink plenty of fluids at least 3 L of fluid a day You have to avoid getting up quickly, year to sit for few minutes before getting up Take Lopressor 25 mg daily for now Follow-up with your schedule ambulance operations supervisor visit Prescriptions: New metoprolol succinate [Toprol XL] 25 mg tablet extended release 24 hr 25 mg PO DAILY Qty: 30 0RF No Action oxybutynin chloride 5 mg tablet 5 mg PO DAILY 14 Days Qty: 14 0RF ketorolac 10 mg tablet 10 mg PO TID PRN (Reason: pain) 5 Days Qty: 15 0RF oxycodone 5 mg tablet 5 mg PO Q4-6H PRN (Reason: severe pain (scale score 7-10)) Qty: 16 0RF Rx Instructions: Partial Fill upon patient request. promethazine 25 mg suppository 25 mg NC Q6H PRN (Reason: nausea and vomiting) Qty: 12 0RF tamsulosin 0.4 mg capsule 0.4 mg PO BEDTIME 14 Days Qty: 14 0RF phenazopyridine [Pyridium] 100 mg tablet 100 mg PO TID PRN (Reason: Spasm) 4 Days Qty: 12 0RF solifenacin 5 mg tablet 5 mg PO DAILY 14 Days Qty: 14 0RF Rx Instructions: take 1 tab daily for 7 days while stent in place tamsulosin 0.4 mg capsule 0.4 mg PO BEDTIME 14 Days Qty: 14 0RF phenazopyridine [Pyridium] 100 mg tablet 100 mg PO TID PRN (Reason: Spasm) 4 Days Qty: 12 0RF solifenacin 5 mg tablet 5 mg PO DAILY 14 Days Qty: 14 0RF Rx Instructions: take 1 tab daily for 7 days while stent in place prochlorperazine maleate [Compazine] 5 mg tablet 5 mg PO TID PRN (Reason: nausea and vomiting) Qty: 10 0RF ciprofloxacin HCl 500 mg tablet 500 mg PO BID 5 Days Qty: 10 0RF Interventions: ED Discharge Assessment Last Done: 11/27/22 21:11 Discharge Date/Time: 11/27/22 21:12
[2022-11-27 19:05] LABS: MANUAL DIFF FLAG NO
[2022-11-27 19:10] LABS: Basophils Absolute Auto 0.1 X10*3/uL (0.0-0.2); Basophils Percent Auto 0.6 % (0-2); Eosinophils Absolute Auto 0.2 X10*3/uL (0.0-0.4); Eosinophils Percent Auto 1.4 % (0-4); Hematocrit 42.7 % (37.0-47.0); Hemoglobin 14.4 g/dl (12.0-16.0); Imm Gran Abs Auto 0.11 X10*3/uL (0.00-0.03); Lymphocytes Absolute Auto 4.3 X10*3/uL (1.2-4.9); Lymphocytes Percent Auto 37.3 % (20-40); Mean Corpuscular HGB Conc 33.7 g/dl (31.0-35.0); Mean Corpuscular Hemoglobin 26.5 pg (27.0-33.0); Mean Corpuscular Volume 78.5 fL (80.0-98.0); Mean Platelet Volume 12.2 fL (9.4-12.3); Monocytes Absolute Auto 0.6 X10*3/uL (0.1-1.2); Monocytes Percent Auto 5.5 % (2-11); Neutrophils Absolute Auto 6.3 x10*3/uL (2.0-8.3); Neutrophils Percent Auto 54.2 % (45-73); Platelet Count 269 X10*3/uL (160-400); Red Blood Count 5.44 X10*6/uL (4.20-5.50); Red Cell Distribution Width 14.5 % (11.0-16.0); White Blood Count 11.6 X10*3/uL (4.8-10.8)
[2022-11-27 19:22] LABS: Lactic Acid 1.9 mmol/L (0.5-2.0)
[2022-11-27 19:30] LABS: Alanine Aminotransferase 10 U/L (0-31); Albumin Level 4.5 g/dL (3.5-5.0); Alkaline Phosphatase 52 U/L (39-117); Anion Gap 14 (12-20); Aspartate Amino Transferase 12 U/L (5-31); Bilirubin Total 0.6 mg/dL (0.0-1.0); Blood Urea Nitrogen 15 mg/dL (9-16); Calcium 9.8 mg/dL (8.4-10.2); Carbon Dioxide 21 mmol/L (22-29); Chloride 109 mmol/L (96-108); Creatinine Clr Calc Pharmacy 108.3; Estimated Glomerular Filt Rate > 60; Glucose Random 105 mg/dL (60-115); Magnesium 2.2 mg/dL (1.6-2.6); Potassium 3.8 mmol/L (3.3-5.1); Sodium 140 mmol/L (135-145); Total Protein 7.4 g/dL (6.5-8.0)
[2022-11-27 19:40] LABS: Troponin-I High Sensitivity < 2.7 ng/L (<3.5-17.0)
[2022-11-27 20:35] VITALS: BP 133/59; PULSE 88; RESP 17; O2SAT 98
[2022-11-27 21:06] VITALS: BP 134/83; PULSE 77; RESP 12; O2SAT 99
[2022-11-27] MEDS: Metoprolol Tartrate 25 MG TABLET PO (21:07)
== END 2022-11-27 21:12 | disposition home or self-care (01) ==
PROVIDERS: Physician Assistant Medical; Emergency Provider Internal Medicine
DX: G90.A Postural orthostatic tachycardia syndrome [POTS] (principal); I49.9 Cardiac arrhythmia, unspecified; R07.89 Other chest pain; Z79.899 Other long term (current) drug therapy
CPT/HCPCS: 36415; 71046; 80053; 83605; 83735; 84484; 85025; 85610; 93005; 99283; 99285

== ENCOUNTER 2022-12-03 09:37 | Outpatient (AMB) | payer MEDICAID, SELFPAY ==
[2022-12-03 09:38] VITALS: BP 124/82; PULSE 70; BMI 28.0
--- NOTE | 2022-12-03 09:38 | MHC.OFFVIS ---
Intake Vital Signs 12/03/22 09:38 Height 5 ft 6 in Weight 173 lb 4.533 oz BMI 28.0 BP 124/82 Blood Pressure Location Rt brachial Position Sitting Pulse 70 Pulse Source Pulse Oximeter Intake Visit Reasons: ED follow up/Palpitations (OK per HS) Intake Note: ED follow up /palpitation and some sb Quantitative Analyst Required: No Allergies hydromorphone [Dilaudid] Allergy (Unknown, Verified 12/03/22 09:40) hives metoclopramide [From Reglan] Allergy (Verified 12/03/22 09:40) Unknown ibuprofen [From MOTRIN] Adverse Reaction (Mild, Verified 12/03/22 09:40) STOMACH UPSET From DILAUDID Allergy (Mild, Uncoded 10/01/22 11:11) HIVES Motrin Allergy (Unknown, Uncoded 10/01/22 11:11) Unknown Medication List - Last Reconciled 12/03/22 by JOVITA CotoC hydroxyzine HCl 25 mg PO TID PRN metoprolol succinate ER (Toprol XL) 25 mg PO DAILY HPI ED follow up/Palpitations (OK per HS) HPI Details Felecia is a 37-year-old female with past medical history of cyclical vomiting with marijuana use who recently presented to the emergency room with elevated heart rate. She was treated for dehydration with 3 L of fluid and improvement in heart rate. She went back to the ER 3 days later for recurrent elevated heart rate and was started on metoprolol XL 25 mg daily. There was some concern that she may have POTS. She was referred Cardiology for further evaluation. Today she reports presents for cardiology consultation. She tells me that in recent weeks she has noticed that her heart is pounding with any physical activity. In the past she noticed that it was pounding as well but did not pay much attention to it. 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 That is when she presented to the emergency room the 1st time. Since then she has been paying more attention to the symptom. She has noticed some improvement since taking metoprolol. She tells me she had been drinking 2-3 Celcius drinks per day as well as a cup of coffee. After the 2nd emergency room visit she stopped all caffeine but still notices her heart is pounding. She has no lightheadedness, presyncope, syncope, falls. She denies any chest discomfort, shortness of breath, PND, orthopnea or edema. 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 She has 5 children, the youngest is 2 years old. She describes herself as very busy. She no longer smokes marijuana as she gets the cyclical vomiting when she does. She denies any routine alcohol use. Nonsmoker. She states her father has a history of heart disease however details are unknown. [facility] Medical History Cyclical vomiting Anxiety Ureteric calculus Family History (Updated 12/03/22 @ 10:36 by PITER Coto) Father Heart disease Social History Alcohol intake: never Patient Tobacco Use Status: Never used Tobacco Substance Use Type: Marijuana Review of Systems Const All systems reviewed & are unremarkable except as noted in HPI and below ENT Denies dizziness Card Denies chest pain, Denies chest pain at rest, Denies chest pain with activity, Reports rapid heart rate, Denies pedal edema, Denies edema, Denies leg edema, Denies lightheadedness, Reports palpitations, Denies dyspnea, Denies dyspnea on exertion and Denies orthopnea Resp Denies cough, Denies dyspnea and Denies dyspnea on exertion GI Denies hematochezia and Denies change in stool character Musc Denies abnormal gait, Denies limited range of motion, Denies muscle cramps, Denies muscle weakness, Denies numbness, Denies radiating pain into limb, Denies stiffness and Denies tingling Neuro Denies abnormal gait, Denies dizziness, Denies numbness and Denies tingling Endo Reports palpitations Physical Exam Vital Signs: Last Vital Signs Pulse 70 12/03/22 09:38 BP 124/82 12/03/22 09:38 BMI result Body Mass Index 28.0 Const General: cooperative, healthy appearing, comfortable and no acute distress Orientation/consciousness: patient oriented x3 Neck Neck: Yes normal visual inspection Resp Effort & Inspection: normal respiratory effort Auscultation: clear to auscultation bilaterally, no crackles, no rales, no rhonchi and no wheezes Cardio Jugular venous distension: no JVD Rate: regular rate Rhythm: regular rhythm Heart sounds: S1 normal heart sound present, S2 normal heart sound present, no murmurs and no rubs Skin General skin exam: no rashes or lesions noted Neuro General: patient oriented x3 Extrem General: Yes normal to inspection, No no pedal edema and No calf tenderness Psych Appearance: grossly normal Mental Status: mental status grossly normal Speech and movement: Normal speech and movement present Assessment & Plan Assessment & Plan (1) Heart palpitations: Code(s): R00.2 - Palpitations Plan: Report of heart palpitations, pounding heart. Two recent ER evaluations showing sinus tachycardia. Heart rate up quickly with standing position, movement. She was initially treated with IV fluids then on repeat ER visit she was started on low-dose metoprolol. She reports some improvement in her symptoms since starting metoprolol. She had been drinking excessive amounts of caffeine. She stopped all caffeine 6 days ago and feels very fatigued since then. She continues to feel the sensation of heart pounding. There was concern for POTS however she has no lightheadedness, presyncope, syncope. Her excess in caffeine can contribute to her elevated heart rates. I ambulated her in our hallway and resting heart rate 76, max heart rate 108 with ambulation. She is asking to resume 1 caffeine beverage. Will allow her to have 1 Celcius drink per day. In addition she should have 2-3 16 oz bottles of water per day. Also instructed to drink Gatorade approximately 3 times weekly. Avoid all marijuana use. Physical activity as tolerated. Will check Holter monitor to assess for arrhythmia, average rates. Will check echocardiogram to assess for any structural heart disease. Will hold off on tilt-table test at this time. Cardiology follow-up to reassess symptoms in 6 weeks, sooner if needed (2) Sinus tachycardia: Code(s): R00.0 - Tachycardia, unspecified (3) Cyclical vomiting: Code(s): R11.15 - Cyclical vomiting syndrome unrelated to migraine Plan: When she smokes marijuana. This can add to dehydration and increased heart rate. Orders: Orders CA echo transthoracic complete Today R00.0 - Tachycardia, unspecified, R00.2 - Palpitations ECG 3 day holter monitor Today R00.0 - Tachycardia, unspecified, R00.2 - Palpitations Medications: Refilled metoprolol succinate ER (Toprol XL) 25 mg PO DAILY 90 tabs 0RF Coding Level of Care Code New Pt Level 3 (19752) Diagnoses Heart palpitations R00.2 Sinus tachycardia R00.0 Cyclical vomiting R11.15 Time Spent (min) 26
== END 2022-12-03 10:29 | disposition home or self-care (01) ==
PROVIDERS: PCP Physician Assistant; Visit Provider Nurse Practitioner Family
DX: R00.2 Palpitations (principal); R00.0 Tachycardia, unspecified; R11.15 Cyclical vomiting syndrome unrelated to migraine
CPT/HCPCS: 99203

== ENCOUNTER → 2022-12-03 09:37 | Outpatient (BNVA) | payer MEDICAID, SELFPAY | PROVIDERS: Visit Provider Nurse Practitioner Family | DX: R00.2 Palpitations (principal); R00.0 Tachycardia, unspecified; R11.15 Cyclical vomiting syndrome unrelated to migraine | CPT/HCPCS: 99212 ==

== ENCOUNTER → 2023-01-05 08:47 | Outpatient (REF) | payer MEDICAID, SELFPAY ==
--- NOTE | 2023-01-05 08:49 | CA_ITS ---
Transthoracic Echocardiogram Patient (Last, First, Middle): Felecia Corral, Gender: Female Date of : 1985 Age: 37 Procedure Date: 01/05/2023 Procedure Type: Transthoracic Echocardiogram Location: OP Height: 167.64 cm Weight: 74.84 kg BSA: 1.84 m2 Heart Rate: bpm BP: 112 / 68 mmHg Preventive Medicine Physician: TO Referring MD: Jessica DUMAS Stockroom Worker: Victor Hugo Norwood MD Symptoms: R00.0 - Tachycardia, unspecified Study Quality: Good ECG Rhythm: Sinus Conclusions: - Normal study Findings Left Ventricle Normal left ventricular size, thickness, and systolic function. The visually estimated ejection fraction is between 55-60%. Diastolic function is normal for age. Peak GLS is -19.1%, within normal limits. Right Ventricle Normal right ventricular cavity size and systolic function. Atria Both atria are normal in size. There is no evidence of interatrial shunt. Aortic Valve Normal aortic valve structure and function. There is no aortic valve stenosis. There is no aortic valve regurgitation. Mitral Valve Normal mitral valve structure and function. There is no mitral valve regurgitation. There is no mitral valve stenosis. Pulmonic Valve The pulmonic valve is normal. There is trace pulmonic valve regurgitation. Tricuspid Valve Normal tricuspid valve structure. Tricuspid regurgitation envelope is inadequate for calculation of right ventricular systolic pressure. Normal right atrial pressure. Great Vessels All visible segments of the aorta are normal in size. The visualized portions of the pulmonary artery and branches are normal. Venous The inferior vena cava is normal in size and collapses greater than 50% with inspiration. Pericardium/Pleural There is no evidence of pericardial effusion. Prior Study Comparison No prior study available for comparison. Measurements 2D Linear Measurements IVSd: 0.95 0.6-0.9/0.6-1.0 cm LVIDd: 4.83 3.9-5.3/4.2-5.9 cm LVIDd Index: 2.63 2.4-3.2/2.2-3.1 cm/m2 LVIDs: 3.68 2.0-3.6 cm LVPWd: 0.85 0.7-1.1 cm LA Diam: 2.80 2.7-3.8/3.0-4.0 cm LAIDs Index: 1.52 1.5-2.3 cm/m2 LV Mass: 185.22 67-162/88-224 g LV Mass Index: 100.66 43-95/49-115 g/m2 LVOT Diam: 2.20 3.0+(-)1.3 cm 2D Systolic Function EF 4C: 56.60 >55% EF 2C: 55.40 >55% EF BiP: 55.00 >55% Mitral Valve MV Pk E: 0.87 MV PK A: 0.81 MV Decel Time: 234.00 E/A: 1.10 E'Lateral: 10.60 E'Medial: 8.70 E/E' Med: 10.00 E/E' Lat: 8.20 PHT: 69.00 MVA PHT: 3.19 Decel Winston: 3.73 Aortic Valve AoV Pk Milton: 1.28 AoV Mn Milton: 0.88 AoV VTI: 0.28 AoV Pk Grad: 7.00 Aov Mn Grad: 3.00 LUISA Cont.VTI: 2.82 LVOT LVOT Pk Milton: 0.92 LVOT Mn Milton: 0.61 LVOT VTI: 0.21 LVOT Pk Grad: 3.00 LVOT Mn Grad: 2.00 LVOT Diam: 2.20 LVOT Area: 3.80 Diastolic Function MV Pk E: 0.87 MV Pk A: 0.81 E/A: 1.10 E'Medial: 8.70 E/E' Med: 10.00 E' Laterial: 10.60 E/E' Lat: 8.20 Right Ventricle TAPSE (mm): 22.00 TVS' Milton: 11.40 Tricuspid Valve RA Press: 3.00 Great Vessels Aorta Sinus of Valsalva: 2.97 2.0-3.5 cm Ao Asc: 2.80 2.1-3.4 cm Updated in Other Vendor System with Status of Final Victor Hugo Norwood MD electronically signed on 01/06/2023 4:48:07 PM with status of Final
--- NOTE | 2023-01-05 08:49 | HM_ITS ---
Conclusion: 1. Patient was monitored for total period of 1 day 19 hours 2. Baseline was normal sinus rhythm with average heart of 76 beats per minute 3. No significant pauses noted 4. Rare PACs noted 5. Patient reported symptoms mostly of shortness of breath correlating with sinus rhythm MTDD
== END ==
LOC: HO.CARD 08:47
PROVIDERS: PCP Physician Assistant; Visit Provider Nurse Practitioner Family
DX: R00.0 Tachycardia, unspecified (principal); R00.2 Palpitations
CPT/HCPCS: 93242; 93306; 93356

== ENCOUNTER → 2023-01-05 08:49 | Outpatient (BNV) | payer MEDICAID, SELFPAY | PROVIDERS: PCP Physician Assistant; Visit Provider Internal Medicine Cardiovascular Disease | DX: I49.1 Atrial premature depolarization (principal) | CPT/HCPCS: 93227; 93306 ==

== ENCOUNTER 2023-01-11 09:29 | Outpatient (AMB) | payer MEDICAID, SELFPAY ==
[2023-01-11 09:44] VITALS: BP 120/74; PULSE 98; BMI 29.2
--- NOTE | 2023-01-11 09:44 | MHC.OFFVIS ---
Intake Vital Signs 01/11/23 09:44 Height 5 ft 6 in Weight 180 lb 12.465 oz BMI 29.2 BP 120/74 Blood Pressure Location Rt brachial Position Sitting Pulse 98 Pulse Source Pulse Oximeter Intake Visit Reasons: f/u after testing Allergies hydromorphone [Dilaudid] Allergy (Unknown, Verified 01/11/23 09:46) hives metoclopramide [From Reglan] Allergy (Verified 01/11/23 09:46) Unknown ibuprofen [From MOTRIN] Adverse Reaction (Mild, Verified 01/11/23 09:46) STOMACH UPSET From DILAUDID Allergy (Mild, Uncoded 10/01/22 11:11) HIVES Motrin Allergy (Unknown, Uncoded 10/01/22 11:11) Unknown Medication List - Last Reconciled 01/11/23 by Jessica Obando NP-C hydroxyzine HCl 25 mg PO TID PRN metoprolol succinate ER (Toprol XL) 25 mg PO DAILY HPI f/u after testing HPI Details Felecia is a 37-year-old female with past medical history of cyclical vomiting with marijuana use who recently presented to the emergency room with elevated heart rate. She was treated for dehydration with 3 L of fluid and improvement in heart rate. She went back to the ER 3 days later for recurrent elevated heart rate and was started on metoprolol XL 25 mg daily. There was some concern that she may have POTS. She was referred Cardiology for further evaluation. On last visit a Holter monitor and echocardiogram were ordered and she now presents for follow-up. Today she reports that she has having increasing issues with rapid heartbeats. She is also noticing shortness of breath with activity. She tells me that even with light activity her heart rate is going up to 160s. She had to stop working as a [employer] due to the symptoms. No chest discomfort at rest or with activity. No shortness of breath at rest, presyncope, syncope, falls. No PND, orthopnea or edema. Is active through the day still as she has young children. Drinking 1 caffeinated beverage per day. Expresses much concern about her symptoms stating it is not normal to feel like this. [facility] Medical History Cyclical vomiting Anxiety Ureteric calculus Family History Father Heart disease Social History Alcohol intake: never Patient Tobacco Use Status: Never used Tobacco Substance Use Type: Marijuana Review of Systems Const All systems reviewed & are unremarkable except as noted in HPI and below ENT Denies dizziness Card Denies chest pain, Denies chest pain at rest, Denies chest pain with activity, Reports rapid heart rate, Denies pedal edema, Denies edema, Denies leg edema, Denies lightheadedness, Reports palpitations, Reports dyspnea, Denies dyspnea on exertion and Denies orthopnea Resp Denies cough, Reports dyspnea and Denies dyspnea on exertion GI Denies hematochezia and Denies change in stool character Musc Denies abnormal gait, Denies limited range of motion, Denies muscle cramps, Denies muscle weakness, Denies numbness, Denies radiating pain into limb, Denies stiffness and Denies tingling Neuro Denies abnormal gait, Denies dizziness, Denies numbness and Denies tingling Endo Reports palpitations Physical Exam Vital Signs: Last Vital Signs Pulse 98 01/11/23 09:44 BP 120/74 01/11/23 09:44 BMI result Body Mass Index 29.2 Const General: cooperative, healthy appearing, comfortable and no acute distress Orientation/consciousness: patient oriented x3 Neck Neck: Yes normal visual inspection and Yes no JVD Carotids: normal carotid upstroke Resp Effort & Inspection: normal respiratory effort Auscultation: clear to auscultation bilaterally, no crackles, no rales, no rhonchi and no wheezes Cardio Jugular venous distension: no JVD Rate: regular rate Rhythm: regular rhythm Heart sounds: S1 normal heart sound present, S2 normal heart sound present, no murmurs and no rubs Neuro General: patient oriented x3 Extrem General: Yes normal to inspection, No no pedal edema and No calf tenderness Psych Appearance: grossly normal Mental Status: mental status grossly normal Speech and movement: Normal speech and movement present Assessment & Plan Assessment & Plan (1) Heart palpitations: Code(s): R00.2 - Palpitations Plan: Reports of heart palpitations, fast pounding heart. Two recent ER evaluations showing sinus tachycardia. Heart rate up quickly with standing position, movement. She was initially treated with IV fluids then on repeat ER visit she was started on low-dose metoprolol. She reports some improvement in her symptoms since starting metoprolol. She had been drinking excessive amounts of caffeine however she did reduce her intake and is now down to 1 daily. In the ER, there was concern for POTS however she has no lightheadedness, presyncope, syncope or documented hypotension. He was initially thought her excess in caffeine contributed to her elevated heart rates. Today she reports ongoing issues with rapid heartbeat and now increasing shortness of breath. Recent labs do show D-dimer 220 on 11/24/2022. Chest x-ray 11/27/2022 shows no acute finding. Echocardiogram was done on 01/05/2023 showing normal study, EF 55-60%. A Holter monitor with done for close to 2 days on 01/05/2023 showing sinus rhythm with average heart rate 76, rare PACs. Test results reviewed with her in detail. She expresses ongoing concern about symptoms. Will order a cardiac event monitor to further evaluate heart symptom and how it correlates with rhythm. Will order a exercise stress test to evaluate for heart rate response to activity, any arrhythmia. Instructed on limiting caffeine to only 1 per day. Continue with increased fluid intake of 2-3 16 oz bottles of water per day. Also instructed to drink Gatorade approximately 3 times weekly. Avoid all marijuana use. Physical activity as tolerated. Continue metoprolol at current dose. Cardiology follow-up in 6-8 weeks, sooner if needed (2) Sinus tachycardia: Code(s): R00.0 - Tachycardia, unspecified Plan: As above (3) Cyclical vomiting: Code(s): R11.15 - Cyclical vomiting syndrome unrelated to migraine Plan: When she smokes marijuana. This can add to dehydration and increased heart rate. Reviewed with her (4) Shortness of breath: Code(s): R06.02 - Shortness of breath Plan: Cardiac testing as above. Breathing comfortable at time of visit, lungs clear. Orders: Orders CA stress test Today R00.0 - Tachycardia, unspecified, R00.2 - Palpitations, R06.02 - Shortness of breath ECG 30 day event monitor Today R00.2 - Palpitations, R06.02 - Shortness of breath Coding Level of Care Code Est Pt Level 4 (96087) Diagnoses Heart palpitations R00.2 Sinus tachycardia R00.0 Cyclical vomiting R11.15 Shortness of breath R06.02 Time Spent (min) 28
== END 2023-01-11 10:17 | disposition home or self-care (01) ==
PROVIDERS: PCP Physician Assistant; Visit Provider Nurse Practitioner Family
DX: R00.2 Palpitations (principal); R00.0 Tachycardia, unspecified; R11.15 Cyclical vomiting syndrome unrelated to migraine; R06.02 Shortness of breath
CPT/HCPCS: 99214

== ENCOUNTER → 2023-01-11 09:29 | Outpatient (BNVA) | payer MEDICAID, SELFPAY | PROVIDERS: PCP Physician Assistant; Visit Provider Nurse Practitioner Family | DX: R00.0 Tachycardia, unspecified (principal); R06.02 Shortness of breath; R00.2 Palpitations; R11.15 Cyclical vomiting syndrome unrelated to migraine | CPT/HCPCS: 99212 ==

== ENCOUNTER → 2023-01-15 09:48 | Outpatient (REF) | payer MEDICAID, SELFPAY ==
--- NOTE | 2023-01-15 09:51 | CA_ITS ---
Acquisition Time: 2023-01-15 10:00:36 Total Exercise Time: 00:05:06 Test Indications: SOB, TACHYCARDIA Medications: SEE H Protocol: GLENDA Max HR: 162 BPM 87% of Pred: 185 BPM Max BP: 138/070 mmHG Max Work Load: 7.0 METS Exercise stress test exercise 5 min 6 sec of Glenda protocol achieving 87% MPHR, with mild SOB, no chest discomfort, without arrhythmias, with normotensive response to exercise, with brisk HR response, without EKG changes. Test reviewed with Dr. Ayoub. Referred By: Jessica Obando Overread By: Yani Brennan
--- NOTE | 2023-01-15 09:51 | HM_ITS ---
* Procedure: 30 days. Wear time 5 days. * Underlying rhythm is sinus with an average rate of 79/Min. * Sinus tachycardia present 30% of the time. * Rare ventricular ectopy. * Shortness of breath in patient diary correlated with sinus tachycardia. * Overall study shows frequent sinus tachycardia and rare PVCs. MTDD
== END ==
LOC: HO.CARD 09:48
PROVIDERS: PCP Physician Assistant; Visit Provider Nurse Practitioner Family
DX: R00.2 Palpitations (principal); R00.0 Tachycardia, unspecified; R06.02 Shortness of breath
CPT/HCPCS: 93017; 93270

== ENCOUNTER → 2023-01-15 09:51 | Outpatient (BNV) | payer MEDICAID, SELFPAY | PROVIDERS: PCP Physician Assistant; Visit Provider Nurse Practitioner | DX: R00.0 Tachycardia, unspecified (principal) | CPT/HCPCS: 93016; 93018; 93244 ==

== ENCOUNTER 2023-01-17 04:32 | Emergency (ER) | payer MEDICAID, SELFPAY ==
--- NOTE | ~2023-01-17 | CT_ITS ---
EXAMINATION: CT ABDOMEN AND PELVIS WITH CONTRAST CLINICAL INFORMATION: Abdominal pain, nausea and vomiting COMPARISON: Previous CT of the abdomen and pelvis September 2022 TECHNIQUE: Multidetector volumetric images were obtained from the superior aspect of the liver through the pubic symphysis following administration 85 mL of Omnipaque 350 intravenous contrast. Sagittal and coronal reformatted images were obtained on the technologist's workstation. Oral contrast: Yes This CT examination was performed using dose optimization techniques as appropriate, variously including the following: *Automated exposure control *Adjustment of mA and/or kV according to patient size (this includes techniques or standardized protocols for targeted exams where dose is matched to indication/reason for exam; i.e. extremities or head) *Use of iterative reconstruction technique DLP: 6 4 5 mGy-cm FINDINGS: LUNG BASES: The visualized lung bases are unremarkable. LIVER, GALLBLADDER, AND BILIARY TREE: The liver is normal in size, shape, and attenuation. Small low-attenuation liver lesions stable from prior exam. These are difficult to characterize due to small size but probably represent cysts. Largest measures 5 mm in the peripheral anterior segment of the right lobe axial image 10 series 3. No biliary ductal dilatation is present. The gallbladder is unremarkable with no evidence of radiopaque gallstones, gallbladder wall thickening, or obvious pericholecystic inflammatory changes. PANCREAS: Unremarkable. SPLEEN: Unremarkable. ADRENAL GLANDS: Unremarkable. KIDNEYS AND URETERS: The kidneys are normal in size, shape, and attenuation multiple bilateral renal stones. No hydronephrosis, ureteral dilatation or ureteral stone. BLADDER: Unremarkable. GASTROINTESTINAL TRACT: The small and large bowel are unremarkable. The appendix is not seen and may have been removed. ABDOMINAL WALL: No significant hernia is appreciated. LYMPH NODES: Normal. VASCULAR: Unremarkable. PELVIC VISCERA: Unremarkable. OSSEOUS STRUCTURES: Unremarkable. CT/CT abdomen pelvis w IV con IMPRESSION: Multiple small bilateral nonobstructing renal stones. Fleischner guidelines were followed.
[2023-01-17 04:35] VITALS: BP 118/88; PULSE 112; RESP 16; TEMP 36.6; O2SAT 100; BMI 26.6
[2023-01-17 05:29] LABS: Appearance Urine Clear; Color Urine Yellow; Glucose Urine UA Negative (Negative); Hematocrit 43.1 % (37.0-47.0); Hemoglobin 14.4 g/dl (12.0-16.0); Leukocyte Esterase Urine Small (1+) (Negative); Mean Corpuscular HGB Conc 33.4 g/dl (31.0-35.0); Mean Corpuscular Hemoglobin 25.7 pg (27.0-33.0); Mean Corpuscular Volume 76.8 fL (80.0-98.0); Nitrite Urine Negative (Negative); PH 7.5 (5.0-9.0); Platelet Count 343 X10*3/uL (160-400); Red Blood Count 5.61 X10*6/uL (4.20-5.50); Red Cell Distribution Width 14.4 % (11.0-16.0); Specific Gravity - Urine 1.025 (1.005-1.025); UMIC TRIGGER UACC YES; Urine Blood Moderate (2+) (Negative); Urine Ketones Negative (Negative); Urine Protein 300 (3+) mg/dL (Neg-Trace); White Blood Count 17.7 X10*3/uL (4.8-10.8)
[2023-01-17 05:34] LABS: Bacteria Urine None Seen (None Seen); Hyaline Casts Urine 0-2 /LPF (0-2); RBC Urine >20 /HPF (0-2); UACC Culture Trigger YES
[2023-01-17 05:41] LABS: Alanine Aminotransferase 22 U/L (0-31); Albumin Level 4.9 g/dL (3.5-5.0); Alkaline Phosphatase 75 U/L (39-117); Anion Gap 19 (12-20); Aspartate Amino Transferase 21 U/L (5-31); Bilirubin Total 1.5 mg/dL (0.0-1.0); Blood Urea Nitrogen 20 mg/dL (9-16); Calcium 10.3 mg/dL (8.4-10.2); Carbon Dioxide 30 mmol/L (22-29); Chloride 97 mmol/L (96-108); Creatinine Clr Calc Pharmacy 80.3; Estimated Glomerular Filt Rate > 60; Glucose Random 139 mg/dL (60-115); Lipase 8 U/L (8-78); Potassium 2.9 mmol/L (3.3-5.1); Sodium 143 mmol/L (135-145); Total Protein 8.6 g/dL (6.5-8.0)
--- NOTE | 2023-01-17 05:52 | PC.NURSE ---
Pt A&Ox3, Pt hysterically crying reporting 3 days of N/V, unable to keep anything PO down with lower ABD pain that radiated to upper ABD. Pt denies any burning or pain with urination. States between my anxiety and pain, I cant take it, I'm going to , Pt preceded to put self on floor Pt reports I like the cold . Pt reassured and updated on plan.
--- NOTE | 2023-01-17 06:36 | ED_ITS ---
HPI - General Adult General Chief complaint: Nausea/Vomiting/Diarrhea Stated complaint: vomiting 3days, abd pain Time Seen by Provider: 01/17/23 06:35 Source: patient Mode of arrival: ambulatory Limitations: no limitations History of Present Illness HPI narrative: Patient is a 37 year old assigned female at with a history of anxiety and cyclical vomiting presenting to the emergency department today with nausea, vomiting, and abdominal pain. Patient states that over the last 3 days she has had diffuse abdominal pain, nausea, and vomiting. Patient states that she does smoke marijuana and knows that sometimes exacerbates it. Patient denies any dizziness, lightheadedness, fever, chills, blurry vision, double vision, loss of vision, chest pain, difficulty breathing, shortness of breath, back pain, night sweats, pain with urination, increased urinary frequency, increased urinary urgency, blood in her urine or stool, syncope or a near syncopal episode, recent trauma or falls, bowel incontinence, bladder incontinence, bowel retention, bladder retention, or any other complaints at this time. Onset (ago): day(s) (3) Location: abdomen Radiation: non-radiation Severity: mild Severity scale (1-10): 3 Quality: aching and dull Pain Consistency: constant Relieving factors: none Exacerbating factors: none Associated symptoms: nausea/vomiting Treatments prior to arrival: none Related Data Home Medications Medication Instructions Recorded Confirmed hydroxyzine HCl 25 mg tablet 25 mg PO TID PRN anxiety 12/03/22 01/11/23 Previous Rx's Medication Instructions Recorded metoprolol succinate 25 mg 25 mg PO DAILY #90 tabs 12/15/22 tablet,extended release 24 hr (Toprol XL) cefuroxime axetil 250 mg tablet 250 mg PO BID 7 days #14 tabs 01/17/23 promethazine 12.5 mg rectal 12.5 mg FL Q6H PRN nausea and 01/17/23 suppository vomiting #12 ea Allergies Allergy/AdvReac Type Severity Reaction Status Date / Time hydromorphone [Dilaudid] Allergy Unknown hives Verified 01/11/23 09:46 metoclopramide [From Reglan] Allergy Unknown Verified 01/11/23 09:46 ibuprofen [From MOTRIN] AdvReac Mild STOMACH Verified 01/11/23 09:46 UPSET From DILAUDID Allergy Mild HIVES Uncoded 10/01/22 11:11 Motrin Allergy Unknown Unknown Uncoded 10/01/22 11:11 Review of Systems 2 Constitutional: Constitutional: Reports no additional constitutional complaints, Denies chills, Denies fever(s) and Denies night sweats Eyes: Eyes: Reports no additional eye complaints, Denies blurry vision, Denies change in vision, Denies diplopia, Denies eye discharge, Denies loss of vision and Denies eye pain ENT: Denies dizziness Cardiovascular: Cardiovascular: Reports no additional cardiovascular complaints, Denies chest pain, Denies lightheadedness, Denies Loss of Consciousness and Denies dyspnea Respiratory: Respiratory: Reports no additional respiratory complaints and Denies dyspnea Gastrointestinal: Gastrointestinal: Reports no additional gastrointestinal complaints, Reports abdominal pain, Denies melena, Denies hematochezia, Denies change in bowel habits, Denies change in stool character, Reports nausea and Reports vomiting Genitourinary: Genitourinary: Denies hematuria, Denies urinary frequency, Denies dysuria, Denies urinary incontinence, Denies urinary hesitancy and Denies urinary urgency Musculoskeletal: Musculoskeletal: Reports no additional musculoskeletal complaints, Denies numbness and Denies tingling Neurologic: Denies dizziness, Denies loss of vision, Denies numbness and Denies tingling Psychiatric: Psychiatric: Reports no additional psychiatric complaints Endocrine: Endocrine: Reports no additional endocrine complaints Hematologic/Lymphatic: Hematologic/Lymphatic: Reports no additional hematologic/lymphatic complaints Allergic/Immunologic: Allergic/Immunologic: Reports no additional allergic/immunologic complaints PMFSH Past Medical History Attestation statement: The following information was validated with the patient. Source: old records reviewed and nursing notes reviewed Medical History Shortness of breath Sinus tachycardia Cyclical vomiting Anxiety Ureteric calculus Family History Family History Father Heart disease Social History Social History Alcohol intake: never Patient Tobacco Use Status: Never used Tobacco Smoked in Last 30 Days: No Use of substances other than those prescribed or required for medical reasons: Yes Substance Use Type: Marijuana Substance Use Frequency: Daily Advance Directives: No Advance Directives Information Provided: No Patient : No Physical Exam ED Vital Signs: Vital Signs - 24 hr 12/10/23 04:35 01/17/23 10:37 01/17/23 13:27 Temperature 97.8 F Pulse Rate 112 H 69 68 Respiratory Rate 16 16 16 Blood Pressure 118/88 116/69 116/70 Pulse Oximetry 100 100 100 Oxygen Delivery Method Room Air Room Air Room Air BMI result Body Mass Index 26.6 Const General: cooperative, no acute distress, alert and awake Nutritional Appearance: well nourished Orientation/consciousness: patient oriented x3 Limitations: no limitations HENMT Head: Yes normal to inspection and Yes atraumatic Ears: hearing grossly normal bilaterally and external ears normal General nose exam: Normal external nose present, no nasal discharge noted and no epistaxis Face and sinus: Yes normal facial exam, No abrasion and No laceration Mouth: Normal oral and palatal mucosa present, no drooling and no muffled voice Eyes General: appearance normal, both eyes and all related structures Periorbital: periorbital findings normal Eyelids: Yes eyelids normal Conjunctivae: conjunctivae normal Pupils: Equal, round and reactive pupils present EOM: EOMs intact bilaterally Neck Neck: Yes normal visual inspection, Yes full ROM and Yes no lymphadenopathy Chest Chest palpation & inspection: normal inspection of the chest Resp Effort & Inspection: normal respiratory effort and able to speak in complete sentences GI Inspection: Yes normal to inspection Palpation (GI): Soft to palpation, not firm, nontender and no guarding Neuro General: patient oriented x3 and moves all extremities Cranial nerves: Yes Equal, round and reactive pupils present Cognition (Neuro): normal cognition Motor exam (neuro): 5/5 motor strength present throughout Sensory Exam: Normal double simultaneous stimulation for sensation Coordination: [id number] test normal Extrem General: Yes normal to inspection, Yes full ROM and Yes capillary refill normal Psych Appearance: grossly normal Mental Status: mental status grossly normal Affect: normal affect Attitude: cooperative Thought process: Normal thought process present Thought content: Normal thought content present Insight: Good insight present (Psych) Medications Administered Discontinued Medications Generic Name Dose Route Start Last Admin Trade Name Freq PRN Reason Stop Dose Admin Al Hydroxide/Mg Hydroxide 15 ml 01/17/23 07:09 01/17/23 10:31 Magnesium Hydrox/Alum Hydrox 30 Ml Oral.Susp PO 01/17/23 07:10 15 ml ONCE ONE Administration Droperidol 1.25 mg 01/17/23 10:15 01/17/23 10:32 Droperidol 5 Mg/2 Ml Vial IVPUSH 01/17/23 10:16 1.25 mg ONCE ONE Administration Sodium Chloride 1,000 mls @ 999 mls/hr 01/17/23 06:45 01/17/23 10:18 Ns IV 01/17/23 07:45 Infused .Q1H1M KANDY Infusion Sodium Chloride 1,000 mls @ 999 mls/hr 01/17/23 11:30 01/17/23 13:16 Ns IV 01/17/23 12:30 Infused .Q1H1M KANDY Infusion Ceftriaxone Sodium 1 gm/ 50 mls @ 100 mls/hr 01/17/23 11:39 01/17/23 12:36 Sodium Chloride IV 01/17/23 12:08 Infused ONCE ONE Infusion Iohexol 85 ml 01/17/23 12:06 01/17/23 12:07 Iohexol 350 Mg/Ml 100 Ml Infus..Btl IV 01/17/23 12:07 85 ml ONCE ONE Administration Lorazepam 1 mg 01/17/23 07:09 01/17/23 09:17 Lorazepam 2 Mg/Ml Vial IVPUSH 01/17/23 07:10 1 mg ONCE ONE Administration Ondansetron HCl 4 mg 01/17/23 06:38 01/17/23 09:16 Ondansetron Hcl 4 Mg/2 Ml Vial IVPUSH 01/17/23 06:39 4 mg ONCE ONE Administration Pantoprazole Sodium 40 mg 01/17/23 07:09 01/17/23 09:18 Pantoprazole Sodium 40 Mg/10 Ml Vial IVPUSH 01/17/23 07:10 40 mg ONCE ONE Administration Potassium Chloride 40 meq 01/17/23 06:58 01/17/23 10:31 Potassium Chloride Packet 20 Meq Packet PO 01/17/23 06:59 40 meq ONCE ONE Administration Potassium Chloride 20 meq 01/17/23 11:34 01/17/23 12:06 Potassium Chloride Er 20 Meq Tab.Er.Prt PO 01/17/23 11:35 20 meq ONCE ONE Administration Medical Decision Making Medical Decision Making MDM Narrative: Patient is a 37 year old assigned female at with a history of cyclical vomiting and anxiety presenting to the emergency department today with nausea, vomiting, and abdominal pain. Patient's physical exam was unremarkable. Patient's blood work showed an elevated WBC count of 17.7 and a potassium of 2.9. Patient's WBC count is secondary to her UTI and the vomiting. Patient's potassium is decreased secondary to vomiting. Patient's urine showed an acute UTI. Patient's abdomen/pelvis CT showed no acute process. Patient's I explained my physical exam findings as well as all test results to the patient. I answered all questions asked by the patient. Patient received multiple anti-emetic medications which she stated helped her symptoms significantly. I stressed the importance of the patient taking her medication as prescribed. I stressed the importance of the patient following up with her primary care provider and a GI Specialist. I stressed the importance of the patient returning to the emergency department immediately if her symptoms were to worsen or if she were to develop any dizziness, shortness of breath, difficulty breathing, chest pain, blurry vision, loss of vision, nausea, vomiting, abdominal pain, fever, chills, back pain, or any other complaints. Patient verbalized agreement and understanding with this treatment plan and discharge. Differential Diagnosis Differential Diagnoses: The differential diagnosis associated with the presentation includes Cyclical vomiting UTI Admission/Observation Consideration of admission/observation: Escalation of care including admission/observation considered Patient would have been admitted to the hospital had her work up had any findings where hospital admission was appropriate and her clinical presentation warranted hospital admission. Lab Data [facility] Lab Attestation statement: I reviewed the patient's lab results. My interpretation of these results are in the [facility] Rationale portion of this note. 01/17/23 05:20 01/17/23 05:20 Labs: Lab Results 01/17/23 01/17/23 Range/Units 05:20 07:54 WBC 17.7 H (4.8-10.8) X10*3/uL RBC 5.61 H (4.20-5.50) X10*6/uL Hgb 14.4 (12.0-16.0) g/dl Hct 43.1 (37.0-47.0) % MCV 76.8 L (80.0-98.0) fL MCH 25.7 L (27.0-33.0) pg MCHC 33.4 (31.0-35.0) g/dl RDW 14.4 (11.0-16.0) % Plt Count 343 D (160-400) X10*3/uL MPV 11.0 (9.4-12.3) fL Absolute Nucleated RBC 0.000 (0.0-0.012) X10*3/uL Nucleated RBC % (auto) 0.0 (0.0-0.2) /100WBC Sodium 143 (135-145) mmol/L Potassium 2.9 L D (3.3-5.1) mmol/L Chloride 97 (96-108) mmol/L Carbon Dioxide 30 H (22-29) mmol/L Anion Gap 19 (12-20) BUN 20 H (9-16) mg/dL Creatinine 1.01 (0.5-1.4) mg/dL Estim Creat Clear Calc 80.3 Estimated GFR > 60 Random Glucose 139 H (60-115) mg/dL Calcium 10.3 H (8.4-10.2) mg/dL Total Bilirubin 1.5 H (0.0-1.0) mg/dL AST 21 (5-31) U/L ALT 22 (0-31) U/L Alkaline Phosphatase 75 (39-117) U/L Total Protein 8.6 H (6.5-8.0) g/dL Albumin 4.9 (3.5-5.0) g/dL Lipase 8 (8-78) U/L Beta HCG, Quant < 2 mIU/mL Urine Color Yellow Urine Appearance Clear Urine pH 7.5 (5.0-9.0) Ur Specific [place] 1.025 (1.005-1.025) Urine Protein 300 (3+) H (Neg-Trace) mg/dL Urine Glucose (UA) Negative (Negative) mg/dL Urine Ketones Negative (Negative) mg/dL Urine Blood Moderate (2+) H (Negative) Urine Nitrite Negative (Negative) Ur Leukocyte Esterase Small (1+) H (Negative) Urine RBC >20 H (0-2) /HPF Urine WBC 11-20 H (0-5) /HPF Ur Squamous Epith Cells 3-5 (0-2) /HPF Urine Bacteria None Seen (None Seen) Hyaline Casts 0-2 (0-2) /LPF Influenza Type A (PCR) NEGATIVE (Negative) Influenza Type B (PCR) NEGATIVE (Negative) RSV RNA Qual (PCR) NEGATIVE (Negative) SARS-CoV-2 RNA (RT-PCR) NEGATIVE (Negative) Independent Interpretation I performed an independent interpretation of an: CT Scan Interpretation: My interpretation is in agreement with the radiologist's impression of this imaging study. - EXAMINATION: CT ABDOMEN AND PELVIS WITH CONTRAST CLINICAL INFORMATION: Abdominal pain, nausea and vomiting COMPARISON: Previous CT of the abdomen and pelvis September 2022 TECHNIQUE: Multidetector volumetric images were obtained from the superior aspect of the liver through the pubic symphysis following administration 85 mL of Omnipaque 350 intravenous contrast. Sagittal and coronal reformatted images were obtained on the technologist's workstation. Oral contrast: Yes This CT examination was performed using dose optimization techniques as appropriate, variously including the following: *Automated exposure control *Adjustment of mA and/or kV according to patient size (this includes techniques or standardized protocols for targeted exams where dose is matched to indication/reason for exam; i.e. extremities or head) *Use of iterative reconstruction technique DLP: 6 4 5 mGy-cm FINDINGS: LUNG BASES: The visualized lung bases are unremarkable. LIVER, GALLBLADDER, AND BILIARY TREE: The liver is normal in size, shape, and attenuation. Small low-attenuation liver lesions stable from prior exam. These are difficult to characterize due to small size but probably represent cysts. Largest measures 5 mm in the peripheral anterior segment of the right lobe axial image 10 series 3. No biliary ductal dilatation is present. The gallbladder is unremarkable with no evidence of radiopaque gallstones, gallbladder wall thickening, or obvious pericholecystic inflammatory changes. PANCREAS: Unremarkable. SPLEEN: Unremarkable. ADRENAL GLANDS: Unremarkable. KIDNEYS AND URETERS: The kidneys are normal in size, shape, and attenuation multiple bilateral renal stones. No hydronephrosis, ureteral dilatation or ureteral stone. BLADDER: Unremarkable. GASTROINTESTINAL TRACT: The small and large bowel are unremarkable. The appendix is not seen and may have been removed. ABDOMINAL WALL: No significant hernia is appreciated. LYMPH NODES: Normal. VASCULAR: Unremarkable. PELVIC VISCERA: Unremarkable. OSSEOUS STRUCTURES: Unremarkable. CT/CT abdomen pelvis w IV con IMPRESSION: Multiple small bilateral nonobstructing renal stones. Fleischner guidelines were followed. Dictated By: Keerthi Orozco MD Signed By: Electronically signed by Keerthi Orozco MD 01/17/23 5242 Radiology Impression Discussion of test interpretation with radiology: I have reviewed the radiologist's reading. Prescription Management I considered prescription management with: Antibiotic (patient prescribed an antibiotic for her UTI) Critical Care Time Critical Care Time Critical Care Time: Yes Total Critical Care Time: 55 Attestation: I spent 55 minutes of Critical Care Time with this patient. This does not include time spent on separately reported billable procedures. Discharge Plan Discharge Clinical Impression: UTI (urinary tract infection), Cyclical vomiting Patient Disposition: Home, Self-Care Instructions: Urinary Tract Infection in Women (DC), Acute Nausea and Vomiting (ED) Additional Instructions: Follow up with your primary care provider and a GI specialist. Return to the emergency department immediately if your symptoms worsen or if you develop any dizziness, shortness of breath, difficulty breathing, chest pain, blurry vision, loss of vision, nausea, vomiting, abdominal pain, fever, chills, back pain, or any other complaints. Prescriptions: New promethazine 12.5 mg suppository 12.5 mg FL Q6H PRN (Reason: nausea and vomiting) Qty: 12 0RF cefuroxime axetil 250 mg tablet 250 mg PO BID 7 Days Qty: 14 0RF No Action metoprolol succinate [Toprol XL] 25 mg tablet extended release 24 hr 25 mg PO DAILY Qty: 90 1RF hydroxyzine HCl 25 mg tablet 25 mg PO TID PRN (Reason: anxiety) Referrals: [facility] [place] [facility] [Provider Group] (Call to establish and follow up with a GI specialist.) [facility] [place] Family Medicine [Provider Group] (Call to establish and follow up with a primary care provider. If you already have a primary care provider, please follow up with them.) [facility] [place] Primary Care, [place] [Provider Group] (Call to establish and follow up with a primary care provider. If you already have a primary care provider, please follow up with them.) [facility] [Provider Group] (Call to establish and follow up with a primary care provider. If you already have a primary care provider, please follow up with them.) Stand Alone Forms: Work/School Release Print Language: Sinhala
[2023-01-17 07:41] LABS: HCG Quantitative < 2 mIU/mL
[2023-01-17 08:35] LABS: Influenza A PCR NEGATIVE (Negative); Influenza B PCR NEGATIVE (Negative); Resp Syncy Virus RNA Qual PCR NEGATIVE (Negative); SARS COV2 PCR INHOUSE NEGATIVE (Negative)
[2023-01-17] MEDS: ondansetron HCL 4 MG/2 ML VIAL IVPUSH (09:16)
[2023-01-17] MEDS: LORazepam 2 MG/ML VIAL 1 MG IVPUSH (09:17)
[2023-01-17] MEDS: 0.9 % Sodium Chloride 1,000 ML 999 ML IV ×2 (09:17→12:06)
[2023-01-17] MEDS: Pantoprazole Sodium 40 MG/10 ML VIAL IVPUSH (09:18)
[2023-01-17] MEDS: Magnesium Hydrox/Alum Hydrox 30 ML ORAL.SUSP 15 ML PO (10:31)
[2023-01-17] MEDS: Potassium Chloride Packet 20 MEQ PACKET 40 MEQ PO (10:31)
[2023-01-17] MEDS: droPERidol 5 MG/2 ML VIAL 1.25 MG IVPUSH (10:32)
[2023-01-17 10:37] VITALS: BP 116/69; PULSE 69; RESP 16; O2SAT 100
--- NOTE | 2023-01-17 10:38 | PC.NURSE ---
this RN resumed care of pt at this time. delay in medication d/t increase in vomiting. medications now administered per provider order. pt c/o 09/17 upper abdominal pain/nausea/vomiting. pt currently resting in no apparent distress at this time. respirations even and unlabored. no sob/wob noted. call licea placed within reach.
[2023-01-17] MEDS: cefTRIAXone sodium 1 GM in 0.9 % Sodium Chloride 50 ML IV (12:06)
[2023-01-17] MEDS: Potassium Chloride ER 20 MEQ TAB.ER.PRT PO (12:06)
--- NOTE | 2023-01-17 12:06 | PC.NURSE ---
pt returned from CT. medication administered per provider order.
[2023-01-17] MEDS: iohexoL 350 MG/ML 100 ML INFUS..BTL 85 ML IV (12:07)
[2023-01-17 13:27] VITALS: BP 116/70; PULSE 68; RESP 16; O2SAT 100
== END 2023-01-17 14:28 | disposition home or self-care (01) ==
PROVIDERS: Physician Assistant Medical; Emergency Provider Emergency Medicine Emergency Medical Services
DX: N39.0 Urinary tract infection, site not specified (principal); R11.15 Cyclical vomiting syndrome unrelated to migraine; Z20.822 Contact with and (suspected) exposure to COVID-19; Z20.828 Contact with and (suspected) exposure to other viral communicable diseases; F12.90 Cannabis use, unspecified, uncomplicated
CPT/HCPCS: 0241U; 36415; 74177; 80053; 81001; 83690; 84702; 85027; 87086; 96361; 96365; 96375; 99284; C9113; J0696; J1790; J2060; J2405; Q9967

== ENCOUNTER 2023-01-18 08:04 | Emergency (ER) | payer MEDICAID, SELFPAY ==
[2023-01-18 08:09] VITALS: BP 116/77; PULSE 73; RESP 18; TEMP 36.6; O2SAT 100; BMI 27.4
--- NOTE | 2023-01-18 08:23 | ED.ABDPAIN ---
HPI - Abdominal Pain General Chief Complaint: Abdominal Pain Stated Complaint: Abd pain seen yesterday Time Seen by Provider: 01/18/23 08:23 Source: patient, RN notes reviewed and old records reviewed Mode of arrival: ambulatory History of Present Illness HPI narrative: 37-year-old female with a past medical history anxiety, cyclical vomiting presenting to the ED complaining of epigastric abdominal pain, nausea, vomiting since discharge from our facility yesterday. Patient was seen and treated in our ED yesterday for similar symptoms, diagnosed with sickle vomiting, noted to have leukocytosis secondary to vomiting, UTI, and unremarkable CT. Patient reports THC/marijuana use. Denies other illicit substances or EtOH. Denies diarrhea, dysuria/hematuria. Reports compliance with antibiotics MD elicited complaint: abdominal pain Related Data Home Medications Medication Instructions Recorded Confirmed hydroxyzine HCl 25 mg tablet 25 mg PO TID PRN anxiety 12/03/22 01/11/23 Previous Rx's Medication Instructions Recorded metoprolol succinate 25 mg 25 mg PO DAILY #90 tabs 12/15/22 tablet,extended release 24 hr (Toprol XL) cefuroxime axetil 250 mg tablet 250 mg PO BID 7 days #14 tabs 01/17/23 promethazine 12.5 mg rectal 12.5 mg ME Q6H PRN nausea and 01/17/23 suppository vomiting #12 ea ondansetron 4 mg disintegrating 4 mg PO Q8H PRN nausea and 01/18/23 tablet vomiting #10 tabs Allergies Allergy/AdvReac Type Severity Reaction Status Date / Time hydromorphone [Dilaudid] Allergy Unknown hives Verified 01/18/23 08:12 metoclopramide [From Reglan] Allergy Unknown Verified 01/18/23 08:12 ibuprofen [From MOTRIN] AdvReac Mild STOMACH Verified 01/18/23 08:12 UPSET From DILAUDID Allergy Mild HIVES Uncoded 10/01/22 11:11 Motrin Allergy Unknown Unknown Uncoded 10/01/22 11:11 Review of Systems Review of Systems Constitutional: No Fever, No Chills ENT/Mouth: No Ear Pain, No Nasal Congestion, No sore throat, No Rhinorrhea, No Swallowing Difficulty Cardiovascular: No Chest Pain, No SOB Respiratory: No Cough, No Sputum, No Wheezing Gastrointestinal: +Nausea, + Vomiting, No Diarrhea, No Constipation, + Abdominal pain Genitourinary: No Dysuria, No Urinary Frequency, No Hematuria, No Flank Pain Musculoskeletal: No joint pain, No Myalgias, No Joint Swelling Skin: No Skin Lesions, No rash Neuro: No Weakness Yes all other systems are reviewed and are negative Constitutional: Reports as per [facility] Past Medical History Attestation statement: The following information was validated with the patient. Source: old records reviewed Medical History Shortness of breath Sinus tachycardia Cyclical vomiting Anxiety Ureteric calculus Family History Family History Father Heart disease Social History Social History Alcohol intake: never Patient Tobacco Use Status: Never used Tobacco Smoked in Last 30 Days: No Use of substances other than those prescribed or required for medical reasons: Yes Substance Use Type: Marijuana Substance Use Frequency: Daily Advance Directives: No Advance Directives Information Provided: No Physical Exam ED Vital Signs: Vital Signs - 24 hr 01/18/23 08:09 01/18/23 10:15 Temperature 97.8 F Pulse Rate 73 58 Respiratory Rate 18 14 Blood Pressure 116/77 136/62 Pulse Oximetry 100 100 Oxygen Delivery Method Room Air Room Air BMI result Body Mass Index 27.4 Const Other: Writhing around in stretcher General: cooperative and no acute distress Orientation/consciousness: patient oriented x3 Limitations: no limitations HENMT Head: Yes normal to inspection and Yes atraumatic Ears: hearing grossly normal bilaterally General nose exam: Normal external nose present Face and sinus: Yes normal facial exam Eyes General: appearance normal, both eyes and all related structures EOM: EOMs intact bilaterally Neck Neck: Yes normal visual inspection and Yes no meningeal signs Resp Effort & Inspection: normal respiratory effort and no respiratory distress Auscultation: clear to auscultation bilaterally Cardio Rate: regular rate Heart sounds: S1 normal heart sound present and S2 normal heart sound present GI Inspection: Yes normal to inspection Palpation (GI): Soft to palpation, Tenderness to palpation present (GI) in the epigastrum; with no rebound tenderness, no guarding and not rigid General: Yes no CVA tenderness Back/Spine/Pelvis Back: no CVA tenderness Skin Rashes: no rashes Wounds: no wounds Neuro General: patient oriented x3, tone normal and no meningeal signs Cranial nerves: Yes CN's II-XII intact bilaterally Gait exam (Neuro): Normal gait present Extrem General: Yes normal to inspection Course Course Course Narrative: -0837--leukocytosis of 16.6 > suspect from vomiting. Low suspicion for severe sepsis -potassium low 3.1 > 60 mEq p.o. repletion ordered. T bili chronically elevated. Labs otherwise reassuring -tox screen positive for marijuana -1120--patient sleeping comfortably on re-evaluation. Food placed at bedside -patient tolerating p.o. in the ED. Sleeping comfortably. safe for discharge home at this time Results discussed with patient including worrisome signs and symptoms and strict return precautions, and when to return to the emergency department. They verbalized understanding and feel safe for discharge at this time. Medical Decision Making Medical Decision Making [facility] Narrative: 37-year-old female with a past medical history anxiety, cyclical vomiting presenting to the ED complaining of epigastric abdominal pain, nausea, vomiting since discharge from our facility yesterday. On exam vital signs stable, NAD, appears uncomfortable/writhing on stretcher, abdomen soft epigastric tenderness, rebound or guarding. Concern for cyclical vomiting. Low suspicion for cholecystitis cholelithiasis, pancreatitis, SBO appendicitis or diverticulitis with negative CT yesterday. Plan: Labs, UA, IVF, IV Benadryl/Ativan/Pepcid and Zofran. Re-evaluate Please refer to course for remaining clinical decision making, interpretation of labs/imaging results, and discussions with consultants and/or family members. Differential Diagnosis Differential Diagnoses: The differential diagnosis associated with the presentation includes As above Admission/Observation Consideration of admission/observation: Escalation of care including admission/observation considered Lab Data [facility] Lab Attestation statement: I reviewed the patient's lab results. 01/18/23 08:21 01/18/23 08:21 Labs: Lab Results 01/18/23 01/18/23 Range/Units 08:21 10:02 WBC 16.6 H (4.8-10.8) X10*3/uL RBC 5.54 H (4.20-5.50) X10*6/uL Hgb 14.2 (12.0-16.0) g/dl Hct 43.5 (37.0-47.0) % MCV 78.5 L (80.0-98.0) fL MCH 25.6 L (27.0-33.0) pg MCHC 32.6 (31.0-35.0) g/dl RDW 14.3 (11.0-16.0) % Plt Count 313 (160-400) X10*3/uL MPV 10.6 (9.4-12.3) fL Immature Gran % (Auto) 0.7 H (0.0-0.4) % Neut % (Auto) 81.6 H (45-73) % Lymph % (Auto) 13.6 L (20-40) % [place] % (Auto) 3.8 (2-11) % Eos % (Auto) 0.1 (0-4) % Baso % (Auto) 0.2 (0-2) % Lymph # (Auto) 2.3 (1.2-4.9) X10*3/uL [place] # (Auto) 0.6 (0.1-1.2) X10*3/uL Eos # (Auto) 0.0 (0.0-0.4) X10*3/uL Baso # (Auto) 0.0 (0.0-0.2) X10*3/uL Abs Immat Gran (auto) 0.12 H (0.00-0.03) X10*3/uL Absolute Neuts (auto) 13.6 H (2.0-8.3) x10*3/uL Absolute Nucleated RBC 0.000 (0.0-0.012) X10*3/uL Nucleated RBC % (auto) 0.0 (0.0-0.2) /100WBC Sodium 141 (135-145) mmol/L Potassium 3.1 L (3.3-5.1) mmol/L Chloride 102 (96-108) mmol/L Carbon Dioxide 23 (22-29) mmol/L Anion Gap 19 (12-20) BUN 11 (9-16) mg/dL Creatinine 0.82 (0.5-1.4) mg/dL Estim Creat Clear Calc 100.4 Estimated GFR > 60 Random Glucose 121 H (60-115) mg/dL Calcium 9.6 D (8.4-10.2) mg/dL Magnesium 2.4 (1.6-2.6) mg/dL Total Bilirubin 1.3 H (0.0-1.0) mg/dL AST 21 (5-31) U/L ALT 23 (0-31) U/L Alkaline Phosphatase 70 (39-117) U/L Total Protein 8.0 (6.5-8.0) g/dL Albumin 4.6 (3.5-5.0) g/dL Lipase 10 (8-78) U/L Beta HCG, Quant < 2 mIU/mL Urine Opiates Screen Not Detected (Not Detect) Urine Fentanyl Screen Not Detected (Not Detect) Ur Barbiturates Screen Not Detected (Not Detect) Ur Phencyclidine Scrn Not Detected (Not Detect) Ur Amphetamines Screen Not Detected (Not Detect) U Benzodiazepines Scrn Not Detected (Not Detect) Urine Cocaine Screen Not Detected (Not Detect) U Marijuana (THC) Screen POSITIVE H (Not Detect) Radiology Impression Discussion of test interpretation with radiology: I have reviewed the radiologist's reading. External Record Review External record reviewed: Inpatient record, Office record, Outpatient record, Prior outpatient labs, Prior outpatient radiology, Primary care record and Outside ED record Tests considered The following testing was considered but not selected: As above Prescription Management I considered prescription management with: Pain Medication Social Determinants Patient?s care significantly limited by Social Determinants of Health including: Alcoholism and drug addiction in family and Problems related to primary support group Medications Administered Discontinued Medications Generic Name Dose Route Start Last Admin Trade Name Freq PRN Reason Stop Dose Admin Diphenhydramine HCl 25 mg 01/18/23 08:28 01/18/23 08:40 Diphenhydramine Hcl 50 Mg/Ml Vial IVPUSH 01/18/23 08:29 25 mg ONCE ONE Administration Famotidine 20 mg 01/18/23 08:28 01/18/23 08:43 Famotidine/Pf 20 Mg/2 Ml Vial IVPUSH 01/18/23 08:29 20 mg ONCE ONE Administration Haloperidol Lactate 5 mg 01/18/23 09:55 01/18/23 10:01 Haloperidol Lactate 5 Mg/Ml Vial IM 01/18/23 09:56 5 mg STAT STA Administration Lactated Ringer's 1,000 mls @ 999 mls/hr 01/18/23 08:30 01/18/23 10:47 Lr IV 01/18/23 09:30 Infused .Q1H1M KANDY Infusion Lorazepam 1 mg 01/18/23 08:28 01/18/23 08:38 Lorazepam 2 Mg/Ml Vial IVPUSH 01/18/23 08:29 1 mg ONCE ONE Administration Ondansetron HCl 4 mg 01/18/23 08:30 01/18/23 08:37 Ondansetron Hcl 4 Mg/2 Ml Vial IVPUSH 01/18/23 08:31 4 mg ONCE ONE Administration Potassium Chloride 60 meq 01/18/23 09:30 01/18/23 10:47 Potassium Chloride Er 20 Meq Tab.Er.Prt PO 01/18/23 09:31 60 meq ONCE ONE Administration Discharge Plan Discharge Clinical Impression: Cyclical vomiting Patient Disposition: Home, Self-Care Instructions: Acute Abdominal Pain (DC) Additional Instructions: Please avoid marijuana use Continue taking previously prescribed medications Zofran as antinausea medication, take as needed for nausea/vomiting Practice a bland diet If your unable to eat or drink persistent nausea/vomiting or severe pain return to ED Prescriptions: New ondansetron 4 mg tablet,disintegrating 4 mg PO Q8H PRN (Reason: nausea and vomiting) Qty: 10 0RF No Action metoprolol succinate [Toprol XL] 25 mg tablet extended release 24 hr 25 mg PO DAILY Qty: 90 1RF promethazine 12.5 mg suppository 12.5 mg ME Q6H PRN (Reason: nausea and vomiting) Qty: 12 0RF cefuroxime axetil 250 mg tablet 250 mg PO BID 7 Days Qty: 14 0RF hydroxyzine HCl 25 mg tablet 25 mg PO TID PRN (Reason: anxiety) Referrals: Physician,Unknown J [Primary Care Provider] - 5 days Interventions: ED Discharge Assessment Last Done: 01/18/23 12:50 Discharge Date/Time: 01/18/23 12:50
[2023-01-18 08:24] LABS: MANUAL DIFF FLAG NO
[2023-01-18 08:26] LABS: Basophils Percent Auto 0.2 % (0-2); Eosinophils Percent Auto 0.1 % (0-4); Hematocrit 43.5 % (37.0-47.0); Hemoglobin 14.2 g/dl (12.0-16.0); Imm Gran Abs Auto 0.12 X10*3/uL (0.00-0.03); Imm Gran Pct Auto 0.7 % (0.0-0.4); Lymphocytes Absolute Auto 2.3 X10*3/uL (1.2-4.9); Lymphocytes Percent Auto 13.6 % (20-40); Mean Corpuscular HGB Conc 32.6 g/dl (31.0-35.0); Mean Corpuscular Hemoglobin 25.6 pg (27.0-33.0); Mean Corpuscular Volume 78.5 fL (80.0-98.0); Mean Platelet Volume 10.6 fL (9.4-12.3); Monocytes Absolute Auto 0.6 X10*3/uL (0.1-1.2); Monocytes Percent Auto 3.8 % (2-11); Neutrophils Absolute Auto 13.6 x10*3/uL (2.0-8.3); Neutrophils Percent Auto 81.6 % (45-73); Platelet Count 313 X10*3/uL (160-400); Red Blood Count 5.54 X10*6/uL (4.20-5.50); Red Cell Distribution Width 14.3 % (11.0-16.0); White Blood Count 16.6 X10*3/uL (4.8-10.8)
[2023-01-18] MEDS: ondansetron HCL 4 MG/2 ML VIAL IVPUSH (08:37)
[2023-01-18] MEDS: LORazepam 2 MG/ML VIAL 1 MG IVPUSH (08:38)
[2023-01-18] MEDS: diphenhydrAMINE HCL 50 MG/ML VIAL 25 MG IVPUSH (08:40)
[2023-01-18] MEDS: Famotidine/PF 20 MG/2 ML VIAL IVPUSH (08:43)
[2023-01-18] MEDS: Lactated Ringers 1,000 ML 999 ML IV (08:52)
[2023-01-18 09:11] LABS: Alanine Aminotransferase 23 U/L (0-31); Albumin Level 4.6 g/dL (3.5-5.0); Alkaline Phosphatase 70 U/L (39-117); Anion Gap 19 (12-20); Aspartate Amino Transferase 21 U/L (5-31); Bilirubin Total 1.3 mg/dL (0.0-1.0); Blood Urea Nitrogen 11 mg/dL (9-16); Calcium 9.6 mg/dL (8.4-10.2); Carbon Dioxide 23 mmol/L (22-29); Chloride 102 mmol/L (96-108); Creatinine Clr Calc Pharmacy 100.4; Estimated Glomerular Filt Rate > 60; Glucose Random 121 mg/dL (60-115); HCG Quantitative < 2 mIU/mL; Lipase 10 U/L (8-78); Magnesium 2.4 mg/dL (1.6-2.6); Potassium 3.1 mmol/L (3.3-5.1); Sodium 141 mmol/L (135-145)
[2023-01-18] MEDS: Haloperidol Lactate 5 MG/ML VIAL IM (10:01)
[2023-01-18 10:15] VITALS: BP 136/62; PULSE 58; RESP 14; O2SAT 100
[2023-01-18 10:18] LABS: Amphetamine Screen Urine Not Detected (Not Detect); Barbiturates, Urine Not Detected (Not Detect); Benzodiazepines Screen Urine Not Detected (Not Detect); Cannabinoid Screen Urine POSITIVE (Not Detect); Cocaine Screen Urine Not Detected (Not Detect); Fentanyl, urine Not Detected (Not Detect); Opiate Screen Urine Not Detected (Not Detect); Phencyclidine Screen Urine Not Detected (Not Detect)
[2023-01-18] MEDS: Potassium Chloride ER 20 MEQ TAB.ER.PRT 60 MEQ PO (10:47)
== END 2023-01-18 12:50 | disposition home or self-care (01) ==
PROVIDERS: Physician Assistant; Emergency Provider Emergency Medicine
DX: R11.15 Cyclical vomiting syndrome unrelated to migraine (principal); F12.90 Cannabis use, unspecified, uncomplicated; F41.9 Anxiety disorder, unspecified; Z87.440 Personal history of urinary (tract) infections; Z79.899 Other long term (current) drug therapy
CPT/HCPCS: 36415; 80053; 80307; 83690; 83735; 84702; 85025; 96361; 96372; 96374; 96375; 99284; J1200; J1630; J2060; J2405; J7120

== ENCOUNTER 2023-02-02 16:15 | Emergency (ER) | payer MEDICAID, SELFPAY ==
[2023-02-02 17:08] VITALS: BP 140/76; PULSE 106; RESP 16; TEMP 36.8; O2SAT 95; BMI 26.6
--- NOTE | 2023-02-02 17:08 | ED_ITS ---
HPI - General Adult General Chief complaint: Upper Respiratory Symptoms Stated complaint: headache, fever, body aches Source: patient Mode of arrival: ambulatory Limitations: no limitations History of Present Illness HPI narrative: 37 year old female with pmhx significant for cyclical vomiting and anxiety presents to the ED today for evaluation of fever, headache, and body aches x2 days. Reports TMAX at home of 101F. She has been taking Tylenol without relief. Reports negative covid test at home. Denies known sick contacts. Denies dizziness, cough, sputum production, chest pain, sob, nausea, vomiting, abd augustina n, diarrhea, dysuria, or vaginal discharge. Related Data Home Medications Medication Instructions Recorded Confirmed hydroxyzine HCl 25 mg tablet 25 mg PO TID PRN anxiety 12/03/22 01/11/23 Previous Rx's Medication Instructions Recorded metoprolol succinate 25 mg 25 mg PO DAILY #90 tabs 12/15/22 tablet,extended release 24 hr (Toprol XL) cefuroxime axetil 250 mg tablet 250 mg PO BID 7 days #14 tabs 01/17/23 promethazine 12.5 mg rectal 12.5 mg CO Q6H PRN nausea and 01/17/23 suppository vomiting #12 ea ondansetron 4 mg disintegrating 4 mg PO Q8H PRN nausea and 01/18/23 tablet vomiting #10 tabs Allergies Allergy/AdvReac Type Severity Reaction Status Date / Time hydromorphone [Dilaudid] Allergy Unknown hives Verified 02/02/23 17:11 metoclopramide [From Reglan] Allergy Unknown Verified 02/02/23 17:11 ibuprofen [From MOTRIN] AdvReac Mild STOMACH Verified 02/02/23 17:11 UPSET From DILAUDID Allergy Mild HIVES Uncoded 10/01/22 11:11 Motrin Allergy Unknown Unknown Uncoded 10/01/22 11:11 Review of Systems Review of Systems: Yes all other systems are reviewed and are negative PMFSH Past Medical History Attestation statement: The following information was validated with the patient. Source: old records reviewed and nursing notes reviewed Medical History Shortness of breath Sinus tachycardia Cyclical vomiting Anxiety Ureteric calculus Family History Family History Father Heart disease Social History Social History Alcohol intake: never Patient Tobacco Use Status: Never used Tobacco Substance Use Type: Marijuana Advance Directives: No Advance Directives Information Provided: No Physical Exam ED Vital Signs: Vital Signs - 24 hr 02/02/23 17:08 Temperature 98.2 F Pulse Rate 106 H Respiratory Rate 16 Blood Pressure 140/76 H Pulse Oximetry 95 Oxygen Delivery Method Room Air BMI result Body Mass Index 26.6 Patient is tachycardic and hypertensive. Const General: cooperative, healthy appearing, comfortable, no acute distress, alert and awake Orientation/consciousness: patient oriented x3 Limitations: no limitations HENMT Other: + posterior oropharynx without erythema, no edema, uvula is midline, no tonsilar exudates or peritonsillar masses, controlling secretions and speaking in complete sentences. Head: Yes normal to inspection, Yes normocephalic and Yes atraumatic Ears: hearing grossly normal bilaterally, external ears normal, TM's normal bilaterally, EAC's normal, mastoids normal and no periauricular adenopathy General nose exam: Normal external nose present and No nasal discharge present Face and sinus: Yes normal facial exam and Yes sinuses nontender Eyes General: appearance normal, both eyes and all related structures Pupils: Equal, round and reactive pupils present Neck Other: + no cervical, submandibular or submental LAD. Neck: Yes normal visual inspection Resp Effort & Inspection: normal respiratory effort Auscultation: clear to auscultation bilaterally Cardio Rate: regular rate Rhythm: regular rhythm Skin General skin exam: no rashes or lesions noted Neuro General: patient oriented x3 and gait normal Cranial nerves: Yes Equal, round and reactive pupils present Extrem General: Yes normal to inspection Course Course Course Narrative: Serology negative for covid, flu, rsv. Patient likely has a viral infection. >> patient left the emergency department before myself or any of the other clinicians could review or explain physical exam findings, test results, need or lack there of for additional testing, treatment options, or a treatment plan. Medical Decision Making Medical Decision Making [facility] Narrative: 37 year old female with pmhx significant for cyclical vomiting and anxiety presents to the ED today for evaluation of fever, headache, and body aches x2 days. Patient is hypertensive to 140/76 and tachycardic to 106. Vital signs otherwise stable. Patient is well appearing. No acute distress. Bilateral EACs and TMs wnl. Posterior oropharynx wnl. Lungs CTA b/l. No wheezing. Clinical concern for viral syndrome. Unlikely strep throat, mono, [employer], retropharyngeal abscess, epiglottis, acute respiratory distress, pneumonia. Plan for serology. Differential Diagnosis Differential Diagnoses: The differential diagnosis associated with the presentation includes as above. Admission/Observation Not indicated Lab Data [facility] Lab Attestation statement: I reviewed the patient's lab results. as above Labs: Lab Results 02/02/23 Range/Units 17:12 Influenza Type A (PCR) NEGATIVE (Negative) Influenza Type B (PCR) NEGATIVE (Negative) RSV RNA Qual (PCR) NEGATIVE (Negative) SARS-CoV-2 RNA (RT-PCR) NEGATIVE (Negative) External Record Review External record reviewed: Inpatient record Prescription Management I considered prescription management with: Pain Medication Critical Care Time Critical Care Time Critical Care Time: No Discharge Plan Discharge Clinical Impression: Upper respiratory infection, viral Patient Disposition: Left W/O Completing Treatment Prescriptions: No Action metoprolol succinate [Toprol XL] 25 mg tablet extended release 24 hr 25 mg PO DAILY Qty: 90 1RF promethazine 12.5 mg suppository 12.5 mg CO Q6H PRN (Reason: nausea and vomiting) Qty: 12 0RF cefuroxime axetil 250 mg tablet 250 mg PO BID 7 Days Qty: 14 0RF ondansetron 4 mg tablet,disintegrating 4 mg PO Q8H PRN (Reason: nausea and vomiting) Qty: 10 0RF hydroxyzine HCl 25 mg tablet 25 mg PO TID PRN (Reason: anxiety) Discharge Date/Time: 02/03/23 01:37
[2023-02-02 17:54] LABS: Influenza A PCR NEGATIVE (Negative); Influenza B PCR NEGATIVE (Negative); Resp Syncy Virus RNA Qual PCR NEGATIVE (Negative); SARS COV2 PCR INHOUSE NEGATIVE (Negative)
== END 2023-02-03 01:37 | disposition left against medical advice (07) ==
PROVIDERS: Physician Assistant Medical; Emergency Provider Emergency Medicine; PCP Physician Assistant
DX: J06.9 Acute upper respiratory infection, unspecified (principal); R51.9 Headache, unspecified; R50.9 Fever, unspecified; M79.10 Myalgia, unspecified site; Z20.822 Contact with and (suspected) exposure to COVID-19; Z20.828 Contact with and (suspected) exposure to other viral communicable diseases
CPT/HCPCS: 0241U; 99281; 99283

== ENCOUNTER 2023-02-06 12:35 | Emergency (ER) | payer MEDICAID, SELFPAY ==
--- NOTE | 2023-02-06 14:03 | ED_ITS ---
HPI - General Adult General Chief complaint: Headache Stated complaint: headache/ head pressure Time Seen by Provider: 02/06/23 15:35 Source: patient Mode of arrival: ambulatory Limitations: no limitations History of Present Illness HPI narrative: patient is a 37-year-old female presents emergency department for evaluation of 1 week of URI symptoms experiencing intermittent headache, diffuse head pressure, sinus tenderness upon palpation, congestion, cough, sore throat, bilateral ear pain. She has tried OTC medications without significant improvement. Related Data Home Medications Medication Instructions Recorded Confirmed hydroxyzine HCl 25 mg tablet 25 mg PO TID PRN anxiety 12/03/22 01/11/23 Previous Rx's Medication Instructions Recorded metoprolol succinate 25 mg 25 mg PO DAILY #90 tabs 12/15/22 tablet,extended release 24 hr (Toprol XL) cefuroxime axetil 250 mg tablet 250 mg PO BID 7 days #14 tabs 01/17/23 promethazine 12.5 mg rectal 12.5 mg MS Q6H PRN nausea and 01/17/23 suppository vomiting #12 ea ondansetron 4 mg disintegrating 4 mg PO Q8H PRN nausea and 01/18/23 tablet vomiting #10 tabs amoxicillin 875 mg-potassium 1 tab PO BID 7 days #14 tabs 02/06/23 clavulanate 125 mg tablet Allergies Allergy/AdvReac Type Severity Reaction Status Date / Time hydromorphone [Dilaudid] Allergy Unknown hives Verified 02/02/23 17:11 metoclopramide [From Reglan] Allergy Unknown Verified 02/02/23 17:11 ibuprofen [From MOTRIN] AdvReac Mild STOMACH Verified 02/02/23 17:11 UPSET From DILAUDID Allergy Mild HIVES Uncoded 10/01/22 11:11 Motrin Allergy Unknown Unknown Uncoded 10/01/22 11:11 Review of Systems Review of Systems: Yes all other systems are reviewed and are negative PMFSH Past Medical History Attestation statement: The following information was validated with the patient. Source: old records reviewed Medical History Shortness of breath Sinus tachycardia Cyclical vomiting Anxiety Ureteric calculus Family History Family History Father Heart disease Social History Social History Alcohol intake: never Patient Tobacco Use Status: Never used Tobacco Substance Use Type: Marijuana Advance Directives: No Advance Directives Information Provided: No Physical Exam ED Vital Signs: Vital Signs - 24 hr 02/06/23 14:04 Temperature 98.0 F Pulse Rate 116 H Respiratory Rate 17 Blood Pressure 125/83 Pulse Oximetry 100 Oxygen Delivery Method Room Air BMI result Body Mass Index 26.6 Appearance: Alert.?Oriented to person, place and time. No acute distress.?Normal affect. Eyes: Pupils equal, round and reactive to light.? ENT: Pharynx Erythematous with bilateral tonsillar hypertrophy 3+, no exudates. No trismus. No drooling. Uvula midline. TM normal bilaterally. No mastoid tenderness. Bilateral frontal sinus tenderness upon palpation. Neck: Normal inspection.? Neck supple.? No cervical lymphadenopathy.? CVS: Heart sounds normal. Normal heart rate and rhythm.? Pulses normal.?? Respiratory: No respiratory distress.? Lung sounds clear to auscultation bilaterally?? Abdomen: Soft and non-tender. Normoactive bowel sounds. Skin: Skin warm and dry.? Normal skin color.? Extremities: No lower extremity edema.? Neuro: Moves all extremities spontaneously. Sensation intact bilaterally. No focal neuro deficits. Ambulates with normal steady gait. Course Course Course Narrative: RME- 37 year old female presents for evaluation of headache over the last 4 days as well as facial pressure. No improvement with Tylenol. Also complains of a cough. plan for viral swabs Medical Decision Making Medical Decision Making [facility] Narrative: Patient is a 37-year-old female presenting for evaluation of upper respiratory symptoms. COVID- 19/influenza/ RSV are negative. Strep a testing was sent initially and lab advised that was an insufficient specimen, a 2nd swab was sent and then the lab had unfortunately lost this walk. Patient declined to have a 3rd swab test, based on symptoms induration will treat with Augmentin for presumptive bacterial pharyngitis. examination not consistent with peritonsillar retropharyngeal abscess. At this time history and physical exam not consistent with ACS/PE/pneumonia , would defer CXR at this time.. Well- appearing, nontoxic, afebrile, no tachycardia or tachypnea/hypoxia. Speaking clear full sentences, ambulatory with steady gait. Discussed conservative treatment including rest, hydration, Tylenol/ibuprofen as needed for fever and body aches, saline nasal spray, humidifier, [id number] cold medication. Advised to follow-up with primary care provider as needed, discussed reasons to return back to the emergency department. All questions were answered. Patient discharged home in stable condition. Differential Diagnosis Differential Diagnoses: The differential diagnosis associated with the presentation includes ( as noted above) Admission/Observation Consideration of admission/observation: Escalation of care including admission/observation considered ( see narrative above) Lab Data [facility] Lab Attestation statement: I reviewed the patient's lab results. ( see narrative above) Labs: Lab Results 02/06/23 02/06/23 Range/Units 14:18 17:01 Influenza Type A (PCR) NEGATIVE (Negative) Influenza Type B (PCR) NEGATIVE (Negative) RSV RNA Qual (PCR) NEGATIVE (Negative) SARS-CoV-2 RNA (RT-PCR) NEGATIVE (Negative) S. pyogenes GrpA JARAD Negative (Negative) Independent Historian Clinical information obtained from an independent historian. History obtained from or confirmed by: Spouse External Record Review External record reviewed: Outpatient record Tests considered The following testing was considered but not selected: CXR deferred, see narrative above Prescription Management I considered prescription management with: Antibiotic Discharge Plan Discharge Clinical Impression: Pharyngitis, Acute frontal sinusitis Patient Disposition: Home, Self-Care Instructions: Pharyngitis (ED), Sinusitis (ED) Prescriptions: New amoxicillin-pot clavulanate 875-125 mg tablet 1 tab PO BID 7 Days Qty: 14 0RF No Action metoprolol succinate [Toprol XL] 25 mg tablet extended release 24 hr 25 mg PO DAILY Qty: 90 1RF promethazine 12.5 mg suppository 12.5 mg MS Q6H PRN (Reason: nausea and vomiting) Qty: 12 0RF cefuroxime axetil 250 mg tablet 250 mg PO BID 7 Days Qty: 14 0RF ondansetron 4 mg tablet,disintegrating 4 mg PO Q8H PRN (Reason: nausea and vomiting) Qty: 10 0RF hydroxyzine HCl 25 mg tablet 25 mg PO TID PRN (Reason: anxiety) Referrals: Physician,Unknown J [Primary Care Provider] - Interventions: ED Discharge Assessment Last Done: 02/06/23 18:50 Discharge Date/Time: 02/06/23 18:51
[2023-02-06 14:04] VITALS: BP 125/83; PULSE 116; RESP 17; TEMP 36.7; O2SAT 100; BMI 26.6
[2023-02-06 14:59] LABS: Influenza A PCR NEGATIVE (Negative); Influenza B PCR NEGATIVE (Negative); Resp Syncy Virus RNA Qual PCR NEGATIVE (Negative); SARS COV2 PCR INHOUSE NEGATIVE (Negative)
[2023-02-06 18:19] LABS: IDNOW Serial# 58CA691E; Strep A Nucleic Acid Negative (Negative)
== END 2023-02-06 18:51 | disposition home or self-care (01) ==
PROVIDERS: Nurse Practitioner Family; Physician Assistant; Emergency Provider Emergency Medicine
DX: J01.10 Acute frontal sinusitis, unspecified (principal); R51.9 Headache, unspecified; H92.03 Otalgia, bilateral; J02.9 Acute pharyngitis, unspecified; R05.9 Cough, unspecified; Z20.822 Contact with and (suspected) exposure to COVID-19; Z20.828 Contact with and (suspected) exposure to other viral communicable diseases
CPT/HCPCS: 0241U; 87651; 99282; 99283

== ENCOUNTER 2023-02-18 15:32 | Emergency (ER) | payer MEDICAID, SELFPAY ==
--- NOTE | ~2023-02-18 | CT_ITS ---
EXAMINATION: CT ABDOMEN AND PELVIS WITHOUT CONTRAST CLINICAL INFORMATION: Bilateral flank pain, history of calculi. COMPARISON: CT abdomen/pelvis 01/17/2023. TECHNIQUE: Multidetector volumetric imaging was performed from the superior aspect of the liver through the pubic symphysis. Sagittal and coronal reformatted images were obtained on the technologist's workstation. This CT examination was performed using dose optimization techniques as appropriate, variously including the following: *Automated exposure control *Adjustment of mA and/or kV according to patient size (this includes techniques or standardized protocols for targeted exams where dose is matched to indication/reason for exam; i.e. extremities or head) *Use of iterative reconstruction technique DLP: 618 mGy-cm FINDINGS: LUNG BASES: No focal consolidation or pleural effusion. LIVER, GALLBLADDER, AND BILIARY TREE: The liver is normal in size, shape, and attenuation. Unchanged too small to characterize hypodensity in the periphery of the right hepatic lobe (3:11). No biliary ductal dilatation is present. The gallbladder is unremarkable with no evidence of radiopaque gallstones, gallbladder wall thickening, or obvious pericholecystic inflammatory changes. PANCREAS: Unremarkable. SPLEEN: Unremarkable. ADRENAL GLANDS: Unremarkable. KIDNEYS AND URETERS: Multiple bilateral nonobstructing renal calculi in the order of at least 8-10 per kidney. No hydronephrosis nor hydroureter. No significant perinephric fat stranding. BLADDER: Unremarkable. GASTROINTESTINAL TRACT: Nonspecific gastric distention with heterogeneous intraluminal debris. Trace hiatal hernia. The small bowel is nondilated. Surgical changes at the cecal base likely from appendectomy. Colonic diverticulosis without significant pericolonic fat stranding or free fluid. No evidence of bowel obstruction. ABDOMINAL WALL: Midline surgical scar in the lower abdominal wall. No significant hernia. LYMPH NODES: No lymphadenopathy. VASCULAR: Normal caliber abdominal aorta. PELVIC VISCERA: Anteroinferior scar. Trace amount of free fluid. Normal appearance of the left ovary (3:65). The right ovary is not well seen secondary to overlying cecum and loops of small bowel. OSSEOUS STRUCTURES: No acute or aggressive appearing osseous findings. CT/CT abdomen pelvis wo IV con IMPRESSION: 1. Multiple bilateral nonobstructing renal calculi. 2. Nonspecific gastric distention with heterogeneous intraluminal debris, most likely related with postprandial state. Correlate clinically. 3. Colonic diverticulosis but no evidence of acute diverticulitis. 4. Trace amount of free fluid in the pelvis, likely physiologic in a patient of this age. The right ovary is not well seen secondary to overlying cecum and loops of small bowel. If indicated, correlation with a pelvic ultrasound could be obtained.
[2023-02-18 15:41] VITALS: BP 125/80; PULSE 116; RESP 20; TEMP 36.3; O2SAT 100; BMI 29.1
--- NOTE | 2023-02-18 15:42 | ED.ABDPAIN ---
HPI - Abdominal Pain General Chief Complaint: Abdominal Pain Stated Complaint: kidney pain Related Data Home Medications Medication Instructions Recorded Confirmed hydroxyzine HCl 25 mg tablet 25 mg PO TID PRN anxiety 12/03/22 01/11/23 Previous Rx's Medication Instructions Recorded cefuroxime axetil 250 mg tablet 250 mg PO BID 7 days #14 tabs 01/17/23 promethazine 12.5 mg rectal 12.5 mg CA Q6H PRN nausea and 01/17/23 suppository vomiting #12 ea ondansetron 4 mg disintegrating 4 mg PO Q8H PRN nausea and 01/18/23 tablet vomiting #10 tabs amoxicillin 875 mg-potassium 1 tab PO BID 7 days #14 tabs 02/06/23 clavulanate 125 mg tablet metoprolol succinate 50 mg 50 mg PO DAILY #90 tabs 02/16/23 tablet,extended release 24 hr cyclobenzaprine 10 mg tablet 10 mg PO TID PRN muscle spasm #14 02/23/23 tabs Allergies Allergy/AdvReac Type Severity Reaction Status Date / Time hydromorphone [Dilaudid] Allergy Unknown hives Verified 02/18/23 15:43 metoclopramide [From Reglan] Allergy Unknown Verified 02/18/23 15:43 ibuprofen [From MOTRIN] AdvReac Mild STOMACH Verified 02/18/23 15:43 UPSET From DILAUDID Allergy Mild HIVES Uncoded 10/01/22 11:11 Motrin Allergy Unknown Unknown Uncoded 10/01/22 11:11 PMFSH Past Medical History Onset Date is defined in the Problem List Problems that require an onset date and time if occurred within 24 hrs of arrival to the ED Aortic Dissection and Rupture; Neurologic impairment; Cardiopulmonary Arrest; Endotracheal Intubation; Insertion or Replacement of Mechanical Circulatory Assist Device Medical History Shortness of breath Sinus tachycardia Cyclical vomiting Anxiety Ureteric calculus Family History Family History Father Heart disease Social History Social History Alcohol intake: never Patient Tobacco Use Status: Never used Tobacco Smoked in Last 30 Days: No Use of substances other than those prescribed or required for medical reasons: No Substance Use Type: Marijuana Advance Directives: No Advance Directives Information Provided: No Patient : No Physical Exam ED Vital Signs: BMI result Body Mass Index 29.1 Course Course Course Narrative: 2 day history of bilateral flank pain radiating into the groins with difficulty urinating. States pain is severe, 11/17 Medical Decision Making Lab Data 02/18/23 17:37 02/18/23 17:37 Labs: Lab Results 02/18/23 02/18/23 Range/Units 17:37 17:39 WBC 13.1 H (4.8-10.8) X10*3/uL RBC 5.13 (4.20-5.50) X10*6/uL Hgb 13.3 (12.0-16.0) g/dl Hct 40.9 (37.0-47.0) % MCV 79.7 L (80.0-98.0) fL MCH 25.9 L (27.0-33.0) pg MCHC 32.5 (31.0-35.0) g/dl RDW 14.6 (11.0-16.0) % Plt Count 329 (160-400) X10*3/uL MPV 11.4 (9.4-12.3) fL Immature Gran % (Auto) 0.3 (0.0-0.4) % Neut % (Auto) 61.1 (45-73) % Lymph % (Auto) 30.3 (20-40) % [place] % (Auto) 6.7 (2-11) % Eos % (Auto) 1.1 (0-4) % Baso % (Auto) 0.5 (0-2) % Lymph # (Auto) 4.0 (1.2-4.9) X10*3/uL [place] # (Auto) 0.9 (0.1-1.2) X10*3/uL Eos # (Auto) 0.1 (0.0-0.4) X10*3/uL Baso # (Auto) 0.1 (0.0-0.2) X10*3/uL Abs Immat Gran (auto) 0.04 H (0.00-0.03) X10*3/uL Absolute Neuts (auto) 8.0 (2.0-8.3) x10*3/uL Absolute Nucleated RBC 0.000 (0.0-0.012) X10*3/uL Nucleated RBC % (auto) 0.0 (0.0-0.2) /100WBC Sodium 140 (135-145) mmol/L Potassium 4.5 (3.3-5.1) mmol/L Chloride 108 (96-108) mmol/L Carbon Dioxide 25 (22-29) mmol/L Anion Gap 12 (12-20) BUN 15 (9-16) mg/dL Creatinine 0.87 (0.5-1.4) mg/dL Estim Creat Clear Calc 97.3 Estimated GFR > 60 Random Glucose 88 (60-115) mg/dL Lactic Acid 0.9 (0.5-2.0) mmol/L Calcium 9.3 (8.4-10.2) mg/dL Phosphorus 3.8 (2.7-4.5) mg/dL Magnesium 2.3 (1.6-2.6) mg/dL Total Bilirubin 0.2 (0.0-1.0) mg/dL AST 20 (5-31) U/L ALT 13 (0-31) U/L Alkaline Phosphatase 61 (39-117) U/L Total Protein 7.4 (6.5-8.0) g/dL Albumin 4.0 (3.5-5.0) g/dL Urine Color Yellow Urine Appearance Cloudy Urine pH 8.0 (5.0-9.0) Ur Specific [place] 1.020 (1.005-1.025) Urine Protein Trace (Neg-Trace) mg/dL Urine Glucose (UA) Negative (Negative) mg/dL Urine Ketones Negative (Negative) mg/dL Urine Blood Negative (Negative) Urine Nitrite Negative (Negative) Ur Leukocyte Esterase Negative (Negative) Urine RBC 0-2 (0-2) /HPF Urine WBC 0-5 (0-5) /HPF Ur Squamous Epith Cells 6-10 (0-2) /HPF Urine Bacteria 1+ (None Seen) Hyaline Casts 0-2 (0-2) /LPF Discharge Plan Discharge Clinical Impression: Encounter for medical care Patient Disposition: Left W/O Completing Treatment Prescriptions: No Action metoprolol succinate 50 mg tablet extended release 24 hr 50 mg PO DAILY Qty: 90 1RF promethazine 12.5 mg suppository 12.5 mg CA Q6H PRN (Reason: nausea and vomiting) Qty: 12 0RF cefuroxime axetil 250 mg tablet 250 mg PO BID 7 Days Qty: 14 0RF ondansetron 4 mg tablet,disintegrating 4 mg PO Q8H PRN (Reason: nausea and vomiting) Qty: 10 0RF cyclobenzaprine 10 mg tablet 10 mg PO TID PRN (Reason: muscle spasm) Qty: 14 0RF amoxicillin-pot clavulanate 875-125 mg tablet 1 tab PO BID 7 Days Qty: 14 0RF hydroxyzine HCl 25 mg tablet 25 mg PO TID PRN (Reason: anxiety) Discharge Date/Time: 02/18/23 21:00
[2023-02-18 17:48] LABS: MANUAL DIFF FLAG NO
[2023-02-18 17:51] LABS: Appearance Urine Cloudy; Color Urine Yellow; Glucose Urine UA Negative (Negative); Leukocyte Esterase Urine Negative (Negative); Nitrite Urine Negative (Negative); Urine Blood Negative (Negative); Urine Ketones Negative (Negative); Urine Protein Trace mg/dL (Neg-Trace)
[2023-02-18 18:01] LABS: Lactic Acid 0.9 mmol/L (0.5-2.0)
[2023-02-18 18:07] LABS: Alanine Aminotransferase 13 U/L (0-31); Alkaline Phosphatase 61 U/L (39-117); Anion Gap 12 (12-20); Aspartate Amino Transferase 20 U/L (5-31); Bilirubin Total 0.2 mg/dL (0.0-1.0); Blood Urea Nitrogen 15 mg/dL (9-16); Calcium 9.3 mg/dL (8.4-10.2); Carbon Dioxide 25 mmol/L (22-29); Chloride 108 mmol/L (96-108); Creatinine Clr Calc Pharmacy 97.3; Estimated Glomerular Filt Rate > 60; Glucose Random 88 mg/dL (60-115); Magnesium 2.3 mg/dL (1.6-2.6); Phosphorus 3.8 mg/dL (2.7-4.5); Potassium 4.5 mmol/L (3.3-5.1); Sodium 140 mmol/L (135-145); Total Protein 7.4 g/dL (6.5-8.0)
[2023-02-18 18:08] LABS: Bacteria Urine 1+ (None Seen); Hyaline Casts Urine 0-2 /LPF (0-2); RBC Urine 0-2 /HPF (0-2); WBC Urine 0-5 /HPF (0-5)
[2023-02-18 18:10] LABS: Basophils Absolute Auto 0.1 X10*3/uL (0.0-0.2); Basophils Percent Auto 0.5 % (0-2); Eosinophils Absolute Auto 0.1 X10*3/uL (0.0-0.4); Eosinophils Percent Auto 1.1 % (0-4); Hematocrit 40.9 % (37.0-47.0); Hemoglobin 13.3 g/dl (12.0-16.0); Imm Gran Abs Auto 0.04 X10*3/uL (0.00-0.03); Imm Gran Pct Auto 0.3 % (0.0-0.4); Lymphocytes Percent Auto 30.3 % (20-40); Mean Corpuscular HGB Conc 32.5 g/dl (31.0-35.0); Mean Corpuscular Hemoglobin 25.9 pg (27.0-33.0); Mean Corpuscular Volume 79.7 fL (80.0-98.0); Mean Platelet Volume 11.4 fL (9.4-12.3); Monocytes Absolute Auto 0.9 X10*3/uL (0.1-1.2); Monocytes Percent Auto 6.7 % (2-11); Neutrophils Percent Auto 61.1 % (45-73); Platelet Count 329 X10*3/uL (160-400); Red Blood Count 5.13 X10*6/uL (4.20-5.50); Red Cell Distribution Width 14.6 % (11.0-16.0); White Blood Count 13.1 X10*3/uL (4.8-10.8)
== END 2023-02-18 21:00 | disposition left against medical advice (07) ==
PROVIDERS: Nurse Practitioner Family; Emergency Provider Emergency Medicine; PCP Physician Assistant
DX: R10.9 Unspecified abdominal pain (principal); N20.0 Calculus of kidney; K57.30 Diverticulosis of large intestine without perforation or abscess without bleeding
CPT/HCPCS: 36415; 74176; 80053; 81001; 83605; 83735; 84100; 85025; 99282; 99284

== ENCOUNTER 2023-02-23 08:58 | Emergency (ER) | payer MEDICAID, SELFPAY ==
--- NOTE | ~2023-02-23 | CT_ITS ---
EXAMINATION: CT ABDOMEN AND PELVIS WITHOUT CONTRAST CLINICAL INFORMATION: Right flank pain, status post appendectomy. COMPARISON: CT abdomen pelvis 02/18/2023 TECHNIQUE: Multidetector volumetric imaging was performed from the superior aspect of the liver through the pubic symphysis. Sagittal and coronal reformatted images were obtained on the technologist's workstation. This CT examination was performed using dose optimization techniques as appropriate, variously including the following: *Automated exposure control *Adjustment of mA and/or kV according to patient size (this includes techniques or standardized protocols for targeted exams where dose is matched to indication/reason for exam; i.e. extremities or head) *Use of iterative reconstruction technique DLP: 691 mGy-cm FINDINGS: LUNG BASES: The visualized lung bases are unremarkable. LIVER, GALLBLADDER, AND BILIARY TREE: The liver is normal in size, shape, and attenuation. No focal hepatic lesion or biliary ductal dilatation is present. The gallbladder is unremarkable with no evidence of radiopaque gallstones, gallbladder wall thickening, or obvious pericholecystic inflammatory changes. PANCREAS: Unremarkable. SPLEEN: Unremarkable. ADRENAL GLANDS: Unremarkable. KIDNEYS AND URETERS: The kidneys are normal in size, shape, and attenuation. There are multiple bilateral radiopaque renal calculi. The largest calculi measures 6 mm in mid and lower pole left kidney and 5 mm in the upper mid and lower pole right kidney. There are more numerous on the right side. No caliectasis or hydronephrosis seen. BLADDER: Unremarkable. GASTROINTESTINAL TRACT: There is scattered stool, diverticuli and gas seen throughout the colon without distention. The small bowel loops are normal caliber. The stomach is nondistended. Likely appendectomy changes in right lower quadrant There is no free air or free fluid seen. ABDOMINAL WALL: No significant hernia is appreciated. Postsurgical changes lower anterior abdominal wall. LYMPH NODES: Normal. VASCULAR: Unremarkable. PELVIC VISCERA: The uterus is anteverted. No adnexal mass or free air seen. There is minimal free fluid in the cul-de-sac likely physiological. No abnormal pelvic lymph nodes. OSSEOUS STRUCTURES: No aggressive lytic or sclerotic process seen. CT/CT abdomen pelvis wo IV con IMPRESSION: 1. Bilateral nephrolithiasis without caliectasis or hydronephrosis. 2. Scattered colonic diverticulosis without diverticulitis. 3. Minimal free fluid in the cul-de-sac likely physiological. 4. No major change from previous study. Fleischner guidelines were followed.
[2023-02-23 09:03] VITALS: BP 117/59; PULSE 81; RESP 19; TEMP 36.4; O2SAT 98; BMI 29.4
[2023-02-23 09:16] LABS: MANUAL DIFF FLAG NO
[2023-02-23 09:17] LABS: Basophils Percent Auto 0.4 % (0-2); Eosinophils Absolute Auto 0.2 X10*3/uL (0.0-0.4); Eosinophils Percent Auto 1.5 % (0-4); Hematocrit 42.1 % (37.0-47.0); Hemoglobin 13.8 g/dl (12.0-16.0); Imm Gran Abs Auto 0.03 X10*3/uL (0.00-0.03); Imm Gran Pct Auto 0.3 % (0.0-0.4); Lymphocytes Absolute Auto 3.6 X10*3/uL (1.2-4.9); Lymphocytes Percent Auto 33.8 % (20-40); Mean Corpuscular HGB Conc 32.8 g/dl (31.0-35.0); Mean Corpuscular Hemoglobin 25.8 pg (27.0-33.0); Mean Corpuscular Volume 78.7 fL (80.0-98.0); Monocytes Absolute Auto 0.8 X10*3/uL (0.1-1.2); Monocytes Percent Auto 7.1 % (2-11); Neutrophils Percent Auto 56.9 % (45-73); Platelet Count 299 X10*3/uL (160-400); Red Blood Count 5.35 X10*6/uL (4.20-5.50); Red Cell Distribution Width 14.9 % (11.0-16.0); White Blood Count 10.5 X10*3/uL (4.8-10.8)
[2023-02-23 09:19] LABS: Appearance Urine Clear; Color Urine Yellow; Glucose Urine UA Negative (Negative); Leukocyte Esterase Urine Negative (Negative); Nitrite Urine Negative (Negative); PH 7.5 (5.0-9.0); Specific Gravity - Urine 1.015 (1.005-1.025); UMIC TRIGGER UACC YES; Urine Blood Trace (Negative); Urine Ketones Negative (Negative); Urine Protein Negative (Neg-Trace)
[2023-02-23 09:20] LABS: UPreg QC Valid YES; Urine Pregnancy NEGATIVE (NEGATIVE)
[2023-02-23 09:23] LABS: Bacteria Urine None Seen (None Seen); Hyaline Casts Urine 0-2 /LPF (0-2); WBC Urine 0-5 /HPF (0-5)
--- NOTE | 2023-02-23 09:26 | ED.ABDPAIN ---
HPI - Abdominal Pain General Chief Complaint: Abdominal Pain Stated Complaint: Back/abd pain Time Seen by Provider: 02/23/23 09:12 Source: patient Mode of arrival: ambulatory Limitations: no limitations History of Present Illness HPI narrative: 37-year-old female came in for evaluation of back pain and right-sided abdominal pain. Right flank pain started about 3-5 days ago that radiates down to the right groin area, pain is severe 10/10, no clear exacerbating or relieving factor, pain is associated with nausea but no vomiting. Patient declined painful urination, blood in the urine, frequency urination, fever, chills, vomiting, diarrhea, vaginal discharge or bleed. Patient had history of kidney stones in the past. Patient had history of appendectomy at age of 12 years. Related Data Home Medications Medication Instructions Recorded Confirmed hydroxyzine HCl 25 mg tablet 25 mg PO TID PRN anxiety 12/03/22 01/11/23 Previous Rx's Medication Instructions Recorded cefuroxime axetil 250 mg tablet 250 mg PO BID 7 days #14 tabs 01/17/23 promethazine 12.5 mg rectal 12.5 mg CO Q6H PRN nausea and 01/17/23 suppository vomiting #12 ea ondansetron 4 mg disintegrating 4 mg PO Q8H PRN nausea and 01/18/23 tablet vomiting #10 tabs amoxicillin 875 mg-potassium 1 tab PO BID 7 days #14 tabs 02/06/23 clavulanate 125 mg tablet metoprolol succinate 50 mg 50 mg PO DAILY #90 tabs 02/16/23 tablet,extended release 24 hr cyclobenzaprine 10 mg tablet 10 mg PO TID PRN muscle spasm #14 02/23/23 tabs Allergies Allergy/AdvReac Type Severity Reaction Status Date / Time hydromorphone [Dilaudid] Allergy Unknown hives Verified 02/18/23 15:43 metoclopramide [From Reglan] Allergy Unknown Verified 02/18/23 15:43 ibuprofen [From MOTRIN] AdvReac Mild STOMACH Verified 02/18/23 15:43 UPSET From DILAUDID Allergy Mild HIVES Uncoded 10/01/22 11:11 Motrin Allergy Unknown Unknown Uncoded 10/01/22 11:11 Review of Systems Review of Systems All other systems are reviewed and are negative Constitutional: Reports as per HPI and Reports no additional constitutional complaints Eyes: Reports as per HPI and Reports no additional eye complaints Reports system reviewed and no additional complaints, except as documented Cardiovascular: Reports as per HPI and Reports no additional cardiovascular complaints Respiratory: Reports as per HPI and Reports no additional respiratory complaints Gastrointestinal: Reports as per HPI and Reports no additional gastrointestinal complaints Genitourinary: Reports no additional female genitourinary complaints Musculoskeletal: Reports no additional musculoskeletal complaints Skin/Breast: Reports system reviewed and no additional complaints, except as docu Psychiatric: Reports no additional psychiatric complaints Endocrine: Reports no additional endocrine complaints Hematologic/Lymphatic: Reports no additional hematologic/lymphatic complaints Allergic/Immunologic: Reports no additional allergic/immunologic complaints Reports system reviewed and no additional complaints, except as documented and Reports Abnormal speech present PMFSH Past Medical History Onset Date is defined in the Problem List Problems that require an onset date and time if occurred within 24 hrs of arrival to the ED Aortic Dissection and Rupture; Neurologic impairment; Cardiopulmonary Arrest; Endotracheal Intubation; Insertion or Replacement of Mechanical Circulatory Assist Device Medical History Shortness of breath Sinus tachycardia Cyclical vomiting Anxiety Ureteric calculus Family History Family History Father Heart disease Social History Social History Alcohol intake: never Patient Tobacco Use Status: Never used Tobacco Substance Use Type: Marijuana Advance Directives: No Advance Directives Information Provided: No Physical Exam ED Vital Signs: Vital Signs - 24 hr 02/23/23 09:03 Temperature 97.5 F Pulse Rate 81 Respiratory Rate 19 Blood Pressure 117/59 L Pulse Oximetry 98 Oxygen Delivery Method Room Air BMI result Body Mass Index 29.4 Vital signs have been reviewed and appear to be correct. Blood pressure elevated. Heart rate normal. Respiratory rate normal. Temperature normal. Oxygen saturation normal. Appearance: Alert. Oriented X3. No acute distress. Head: Normal external exam. Normocephalic. Atraumatic. No Patrick signs noted. No raccoon eyes noted Eyes: PERRLA. EOMI. Conjunctiva and sclera normal. Eyelids normal. ENT: TM's Normal. Pharynx normal. Uvula midline. Moist mucous membranes. No trismus noted. No drooling noted. No muffled voice noted. Neck: Normal inspection. Neck supple. FROM. No adenopathy. Thyroid Normal. No meningeal signs. No neck mass noted. CVS: Normal heart rate and rhythm. Heart sound normal. No murmurs noted. Pulses normal throughout. Respiratory: No respiratory distress. Painless inspiration. Breath sounds normal. No wheezes/rales/rhonchi noted. Chest nontender. No accessory muscle usage noted or decreased air movement noted. Abdomen: Soft, right lower quadrant tenderness, no rebound tenderness, no guarding. Bowel sounds normal in all 4 quadrants. No distention noted. No organomegaly noted. No visible injury noted. Back: Right CVA tenderness. Full range of motion noted. Skin: Skin warm and dry. Normal skin color. Normal skin turgor. No rashes/lesions/lacerations noted. Extremities: No lower extremity edema. Extremities exhibit normal range of motion. Extremities nontender. Neuro: Oriented X 3. Cranial nerve exam: II-XII are grossly intact No motor deficit. No sensory deficit. Reflexes normal. Course Reevaluation(s) Reevaluation #1: Patient feels better after pain medication able to sleep, CT of the abdomen pelvis no obstructing ureteric stone. Patient's symptoms likely related to spasm, patient work as a [employer] was instructed to rest, no strenuous activity, no heavy lifting, use Tylenol if needed and muscle relaxant otherwise to follow-up with PCP. Time: 11:36 Medical Decision Making Differential Diagnosis Differential Diagnoses: The differential diagnosis associated with the presentation includes (Ureteric stone, renal colic, UTI, pyelonephritis, , colitis, diverticulitis.) Admission/Observation Consideration of admission/observation: Escalation of care including admission/observation considered Lab Data MDM Lab Attestation statement: I reviewed the patient's lab results. 02/23/23 09:11 02/23/23 09:11 Labs: Lab Results 02/23/23 Range/Units 09:11 WBC 10.5 (4.8-10.8) X10*3/uL RBC 5.35 (4.20-5.50) X10*6/uL Hgb 13.8 (12.0-16.0) g/dl Hct 42.1 (37.0-47.0) % MCV 78.7 L (80.0-98.0) fL MCH 25.8 L (27.0-33.0) pg MCHC 32.8 (31.0-35.0) g/dl RDW 14.9 (11.0-16.0) % Plt Count 299 (160-400) X10*3/uL MPV 11.0 (9.4-12.3) fL Immature Gran % (Auto) 0.3 (0.0-0.4) % Neut % (Auto) 56.9 (45-73) % Lymph % (Auto) 33.8 (20-40) % [place] % (Auto) 7.1 (2-11) % Eos % (Auto) 1.5 (0-4) % Baso % (Auto) 0.4 (0-2) % Lymph # (Auto) 3.6 (1.2-4.9) X10*3/uL [place] # (Auto) 0.8 (0.1-1.2) X10*3/uL Eos # (Auto) 0.2 (0.0-0.4) X10*3/uL Baso # (Auto) 0.0 (0.0-0.2) X10*3/uL Abs Immat Gran (auto) 0.03 (0.00-0.03) X10*3/uL Absolute Neuts (auto) 6.0 (2.0-8.3) x10*3/uL Absolute Nucleated RBC 0.000 (0.0-0.012) X10*3/uL Nucleated RBC % (auto) 0.0 (0.0-0.2) /100WBC Sodium 139 (135-145) mmol/L Potassium 4.5 (3.3-5.1) mmol/L Chloride 107 (96-108) mmol/L Carbon Dioxide 27 (22-29) mmol/L Anion Gap 10 L (12-20) BUN 10 (9-16) mg/dL Creatinine 0.90 (0.5-1.4) mg/dL Estim Creat Clear Calc 94.4 Estimated GFR > 60 Random Glucose 106 (60-115) mg/dL Calcium 9.6 (8.4-10.2) mg/dL Total Bilirubin 0.5 (0.0-1.0) mg/dL Direct Bilirubin 0.2 (0.0-0.5) mg/dL AST 12 (5-31) U/L ALT 12 (0-31) U/L Alkaline Phosphatase 60 (39-117) U/L Total Protein 7.1 (6.5-8.0) g/dL Albumin 4.1 (3.5-5.0) g/dL Lipase 13 (8-78) U/L Urine Color Yellow Urine Appearance Clear Urine pH 7.5 (5.0-9.0) Ur Specific [place] 1.015 (1.005-1.025) Urine Protein Negative (Neg-Trace) mg/dL Urine Glucose (UA) Negative (Negative) mg/dL Urine Ketones Negative (Negative) mg/dL Urine Blood Trace H (Negative) Urine Nitrite Negative (Negative) Ur Leukocyte Esterase Negative (Negative) Urine RBC 6-10 H (0-2) /HPF Urine WBC 0-5 (0-5) /HPF Ur Squamous Epith Cells 3-5 (0-2) /HPF Urine Bacteria None Seen (None Seen) Hyaline Casts 0-2 (0-2) /LPF Urine Test NEGATIVE (NEGATIVE) Independent Interpretation I performed an independent interpretation of an: CT Scan (Abdomen and pelvis:1. Bilateral nephrolithiasis without caliectasis or hydronephrosis. 2. Scattered colonic diverticulosis without diverticulitis. 3. Minimal free fluid in the cul-de-sac likely physiological. 4. No major change from previous study. ) Radiology Impression Discussion of test interpretation with radiology: I have reviewed the radiologist's reading. Medications Administered Discontinued Medications Generic Name Dose Route Start Last Admin Trade Name Freq PRN Reason Stop Dose Admin Sodium Chloride 1,000 mls @ 999 mls/hr 02/23/23 09:21 02/23/23 10:22 Ns IV 02/23/23 10:21 999 mls/hr .Q1H1M ONE Administration Ketorolac Tromethamine 30 mg 02/23/23 09:21 02/23/23 10:20 Ketorolac Tromethamine 30 Mg/Ml Vial IVPUSH 02/23/23 09:22 30 mg ONCE ONE Administration Morphine Sulfate 1 mg 02/23/23 09:21 02/23/23 10:19 Morphine Sulfate 2 Mg/Ml Cartridge IVPUSH 02/23/23 09:22 1 mg ONCE ONE Administration Protocol Ondansetron HCl 4 mg 02/23/23 09:25 02/23/23 10:22 Ondansetron Hcl 4 Mg/2 Ml Vial IVPUSH 02/23/23 09:26 4 mg ONCE ONE Administration Discharge Plan Discharge Clinical Impression: Back pain Patient Disposition: Home, Self-Care Instructions: Back Pain (ED) Additional Instructions: Rest, heating pad applied to your back, no heavy lifting or strenuous exercising. Prescriptions: New cyclobenzaprine 10 mg tablet 10 mg PO TID PRN (Reason: muscle spasm) Qty: 14 0RF No Action metoprolol succinate 50 mg tablet extended release 24 hr 50 mg PO DAILY Qty: 90 1RF promethazine 12.5 mg suppository 12.5 mg CO Q6H PRN (Reason: nausea and vomiting) Qty: 12 0RF cefuroxime axetil 250 mg tablet 250 mg PO BID 7 Days Qty: 14 0RF ondansetron 4 mg tablet,disintegrating 4 mg PO Q8H PRN (Reason: nausea and vomiting) Qty: 10 0RF amoxicillin-pot clavulanate 875-125 mg tablet 1 tab PO BID 7 Days Qty: 14 0RF hydroxyzine HCl 25 mg tablet 25 mg PO TID PRN (Reason: anxiety) Referrals: Ana Viveros PA-C [Primary Care Provider] - Stand Alone Forms: Work/School Release
[2023-02-23 09:51] LABS: Alanine Aminotransferase 12 U/L (0-31); Albumin Level 4.1 g/dL (3.5-5.0); Alkaline Phosphatase 60 U/L (39-117); Anion Gap 10 (12-20); Aspartate Amino Transferase 12 U/L (5-31); Bilirubin Direct 0.2 mg/dL (0.0-0.5); Bilirubin Total 0.5 mg/dL (0.0-1.0); Blood Urea Nitrogen 10 mg/dL (9-16); Calcium 9.6 mg/dL (8.4-10.2); Carbon Dioxide 27 mmol/L (22-29); Chloride 107 mmol/L (96-108); Creatinine Clr Calc Pharmacy 94.4; Estimated Glomerular Filt Rate > 60; Glucose Random 106 mg/dL (60-115); Lipase 13 U/L (8-78); Potassium 4.5 mmol/L (3.3-5.1); Sodium 139 mmol/L (135-145); Total Protein 7.1 g/dL (6.5-8.0)
[2023-02-23] MEDS: Morphine Sulfate 2 MG/ML CARTRIDGE 1 MG IVPUSH (10:19)
[2023-02-23] MEDS: Ketorolac Tromethamine 30 MG/ML VIAL IVPUSH (10:20)
[2023-02-23] MEDS: ondansetron HCL 4 MG/2 ML VIAL IVPUSH (10:22)
[2023-02-23] MEDS: 0.9 % Sodium Chloride 1,000 ML 999 ML IV (10:22)
--- NOTE | 2023-02-23 11:14 | PC.NURSE ---
pt a+o x3, she reports 8/10 lower R sided abd pain that radiates to the right flank. pt said the pain has been going on x1 wk. she denies n/v. abd soft and tender. +BS all quadrants. 20g iv inserted RAC iv, fluids and meds given as documented. pt tolerated well. abd CT done, results pending. pt no longer in the care of this RN.
[2023-02-23 11:55] VITALS: RESP 16
== END 2023-02-23 11:56 | disposition home or self-care (01) ==
PROVIDERS: Emergency Provider Emergency Medicine; PCP Physician Assistant
DX: M54.50 Low back pain, unspecified (principal); N20.0 Calculus of kidney; Z87.442 Personal history of urinary calculi; Z87.440 Personal history of urinary (tract) infections
CPT/HCPCS: 36415; 74176; 80048; 80076; 81001; 81025; 83690; 85025; 96361; 96374; 96375; 99284; 99285; J1885; J2270; J2405

== ENCOUNTER 2023-02-27 16:40 | Emergency (ER) | payer MEDICAID, SELFPAY ==
--- NOTE | ~2023-02-27 | US_ITS ---
EXAMINATION: US RENAL CLINICAL INFORMATION: Severe left back pain COMPARISON: CT abdomen/pelvis 02/23/2023 TECHNIQUE: Ultrasound of the retroperitoneum was performed. The left kidney measures 11.1 x 5.4 x 4.8 cm demonstrating nephrocalcinosis. Multiple nonobstructing renal calculi measuring 9 mm at the interpole, 7 mm at the interpole, and 7 mm at the lower pole. A 7 mm hyperechoic structure located at the left upper pole likely represents a small angiomyolipoma, which corresponds to a small fatty cortical defect seen on recent CT. No suspicious masses. No perinephric fluid collection. No hydroureteronephrosis. US/US renal LT IMPRESSION: 1. Multiple nonobstructing renal calculi, the largest at the interpole measuring 9 mm. 2. 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
--- NOTE | ~2023-02-27 | XR_ITS ---
EXAMINATION: XR LUMBOSACRAL SPINE CLINICAL INFORMATION: Left-sided pain after lifting COMPARISON: CT abdomen pelvis 02/23/2023 TECHNIQUE: Three views of the lumbosacral spine. FINDINGS: The vertebral bodies and posterior elements are normal aside from minimal scoliosis convex to left. The disc spaces are preserved and the vertebral alignment is normal. The paraspinal soft tissues are normal. Again seen is rather extensive nephrolithiasis similar to that noted on the CT scan from 4 days ago. XR/XR lumbar spine 2-3V IMPRESSION: No acute finding. Bilateral nephrolithiasis.
[2023-02-27 16:41] VITALS: BP 135/79; PULSE 97; RESP 18; TEMP 36.6; O2SAT 97; BMI 29.4
--- NOTE | 2023-02-27 16:42 | ED_ITS ---
HPI - Back Pain/Injury General Chief Complaint: Back Pain/Injury Stated Complaint: back pain work inj Time Seen by Provider: 02/27/23 17:31 Source: patient Mode of arrival: ambulatory Limitations: no limitations History of Present Illness HPI Narrative: patient is a 37-year-old female who presents emergency department for evaluation of pain to the left lower back. 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 Reports pain to be severe 11/17. she trialed cyclobenzaprine which she had available to her from a visit to the emergency department 1 week ago where she was experiencing right sided back pain. Denies fevers, chills, burning with micturition, urinary frequency/urgency/hesitancy, bladder or bowel dysfunction, numbness or tingling of the perineum or bilateral legs. Denies any recent surgical procedures, any known immune compromising conditions, personal history of cancer, or IV drug usage. MD elicited complaint: back pain Related Data Home Medications Medication Instructions Recorded Confirmed hydroxyzine HCl 25 mg tablet 25 mg PO TID PRN anxiety 12/03/22 01/11/23 Previous Rx's Medication Instructions Recorded cefuroxime axetil 250 mg tablet 250 mg PO BID 7 days #14 tabs 01/17/23 promethazine 12.5 mg rectal 12.5 mg TX Q6H PRN nausea and 01/17/23 suppository vomiting #12 ea ondansetron 4 mg disintegrating 4 mg PO Q8H PRN nausea and 01/18/23 tablet vomiting #10 tabs amoxicillin 875 mg-potassium 1 tab PO BID 7 days #14 tabs 02/06/23 clavulanate 125 mg tablet metoprolol succinate 50 mg 50 mg PO DAILY #90 tabs 02/16/23 tablet,extended release 24 hr cyclobenzaprine 10 mg tablet 10 mg PO TID PRN muscle spasm #14 02/23/23 tabs Allergies Allergy/AdvReac Type Severity Reaction Status Date / Time hydromorphone [Dilaudid] Allergy Unknown hives Verified 02/18/23 15:43 metoclopramide [From Reglan] Allergy Unknown Verified 02/18/23 15:43 ibuprofen [From MOTRIN] AdvReac Mild STOMACH Verified 02/18/23 15:43 UPSET From DILAUDID Allergy Mild HIVES Uncoded 10/01/22 11:11 Motrin Allergy Unknown Unknown Uncoded 10/01/22 11:11 Review of Systems Review of Systems: Yes all other systems are reviewed and are negative [facility] Past Medical History Attestation statement: The following information was validated with the patient. Source: old records reviewed Onset Date is defined in the Problem List Problems that require an onset date and time if occurred within 24 hrs of arrival to the ED Aortic Dissection and Rupture; Neurologic impairment; Cardiopulmonary Arrest; Endotracheal Intubation; Insertion or Replacement of Mechanical Circulatory Assist Device Medical History Shortness of breath Sinus tachycardia Cyclical vomiting Anxiety Ureteric calculus Family History Family History Father Heart disease Social History Social History Alcohol intake: never Patient Tobacco Use Status: Never used Tobacco Smoked in Last 30 Days: No Use of substances other than those prescribed or required for medical reasons: No Substance Use Type: Marijuana Advance Directives: No Advance Directives Information Provided: No Patient : No Physical Exam Vital Signs: Vital Signs: Last Vital Signs Temp 97.9 F 02/27/23 19:05 Pulse 88 02/27/23 19:05 Resp 20 02/27/23 19:05 BP 132/78 02/27/23 19:05 Pulse Ox 98 02/27/23 19:05 O2 Del Method Room Air 02/27/23 19:05 BMI result Body Mass Index 29.4 Appearance: Alert.?Oriented to person, place and time. No acute distress.?Normal affect. Eyes: Pupils equal, round and reactive to light.? ENT: Pharynx normal.?? Neck: Normal inspection.? Neck supple.?? CVS: Heart sounds normal. Normal heart rate and rhythm.? Pulses normal; bilateral radial pulses 2+, bilateral posterior tibial/dorsalis pedis pulses 2+.? Respiratory: No respiratory distress.? Lung sounds clear to auscultation bilaterally?? Abdomen: Soft and non-tender. Normoactive bowel sounds. No pulsatile mass.?? Skin: Skin warm and dry.? Normal skin color.? Normal skin turgor.?? Extremities: No lower extremity edema.? No calf ttp? Back: + moderate paraspinal muscular tenderness from lumbar region to coccyx. No CVA tenderness. No midline spinal tenderness, step-off's, or deformity. Full ROM intact in bilateral lower extremities. Straight leg test negative on right; Straight leg test positive on left. No rashes, lesions, areas of induration or fluctuance, or signs of infection noted., Neuro: Moves all extremities spontaneously. 5/5 strength in hip extension/flexion, abduction, adduction. Sensation to light touch intact bilaterally. Patellar and Achilles reflex 2+ bilaterally. No ataxia, gait normal and steady.. No focal neuro deficits. Course Course Course Narrative: This is a rapid medical exam: Additional HPI, ROS, PE not included below will be deferred to primary provider. Patient is a 37-year-old female presenting to the ED with complaint of sudden onset left lower back pain after transferring a patient from the chair to the toilet around 11am today. Denies any saddle anesthesia or bowel or bladder incontinence. Pain radiating down left leg. Took a flexeril prior to arrival which she received while here on Wednesday for different back pain. Plan: x-ray Reevaluation(s) Reevaluation #1: Patient signed out to Day Stevens NP pending US, pain management, and re- evaluation Time: 18:29 Reevaluation #2: Patient received in sign out. Continues to complain of severe left lower back pain radiating down left leg. Mild temporary relief with Valium but pain has returned. Patient is yelling out intermittently from her room in pain. Will medicate with prednisone and IM morphine. Patient has documented allergy to dilaudid but has previously tolerated morphine without adverse effects. Ultrasound results pending. UA notable for trace leukocytes, 1+ blood, negative nitrites, 4+ bacteria but >20 epithelials so likely contamination. Patient continues to deny any urinary symptoms, flank or abdominal pain. Time: 20:24 Reevaluation #3: Patient signed out to Jael Pollard NP pending ultrasound results. Time: 21:02 Medications Administered Discontinued Medications Generic Name Dose Route Start Last Admin Trade Name Freq PRN Reason Stop Dose Admin Diazepam 2 mg 02/27/23 18:20 02/27/23 18:28 Diazepam 2 Mg Tablet PO 02/27/23 18:21 2 mg ONCE ONE Administration Ketorolac Tromethamine 60 mg 02/27/23 17:37 02/27/23 17:46 Ketorolac Tromethamine 60 Mg/2 Ml Vial IM 02/27/23 17:38 60 mg ONCE ONE Administration Morphine Sulfate 4 mg 02/27/23 20:19 02/27/23 20:41 Morphine Sulfate 4 Mg/Ml Cartridge IM 02/27/23 20:20 4 mg ONCE ONE Administration Protocol Prednisone 50 mg 02/27/23 20:06 02/27/23 20:15 Prednisone 10 Mg Tablet PO 02/27/23 20:07 50 mg ONCE ONE Administration Medical Decision Making Medical Decision Making [facility] Narrative: patient is a 37-year-old female who presents emergency department for evaluation of pain to the left lower back radiating into her leg after lifting a patient at work for a transfer. Based on history and physical examination I suspect that Pain is most consistent with lumbar radiculopathy, although cannot completely exclude herniated disc. On neurological exam there are no deficits. Not consistent with spinal fracture, spinal infection, epidural abscess, AAA, epidural abscess, or dissection. No high risk past medical history including incontinence, fever, immunosuppression, recent surgery or lumbar puncture, coagulopathy, significant trauma, recent unintentional weight loss, pulsatile mass, history of cancer, history of TB, history of IV drug use that would warrant MRI or CT. On exam no concern for cauda equina syndrome. XR the lumbar spine reveals acute fracture or subluxation. patient received injection of toradol, (of note she does have a allergy to ibuprofen which results in GI upset and reported gastritis), toradol with no significant improvement. She does have a history of nephrolithiasis, she had a CT of the abdomen and pelvis on 02/23/2023 which did reveal bilateral nephrolithiasis at that time with the largest measuring 6mm in the left kidney. given the sudden onset of her pain after the injury at work suspect less likely pain secondary to renal colic though not impossible. Plan to obtain urinalysis in addition to US as she has had recent CT imaging. Will trial pain management with diazepam. Differential Diagnosis Differential Diagnoses: The differential diagnosis associated with the presentation includes ( see narrative above) Admission/Observation Consideration of admission/observation: Escalation of care including admission/observation considered ( see narrative above) Lab Data Labs: Lab Results 02/27/23 Range/Units 19:11 Urine Color Yellow Urine Appearance Turbid Urine pH 5.5 (5.0-9.0) Ur Specific [place] >= 1.030 H (1.005-1.025) Urine Protein 30 (1+) H (Neg-Trace) mg/dL Urine Glucose (UA) Negative (Negative) mg/dL Urine Ketones Trace (Negative) mg/dL Urine Blood Small (1+) H (Negative) Urine Nitrite Negative (Negative) Ur Leukocyte Esterase Trace H (Negative) Urine RBC 3-5 H (0-2) /HPF Urine WBC 0-5 (0-5) /HPF Ur Squamous Epith Cells >20 (0-2) /HPF Urine Bacteria 4+ (None Seen) Hyaline Casts 0-2 (0-2) /LPF Independent Interpretation I performed an independent interpretation of an: Plain X-Ray ( I personally interpreted XR imaging and agree with radiologist impression) Radiology Impression Discussion of test interpretation with radiology: I have reviewed the radiologist's reading. Radiologist Impression: XR/XR lumbar spine 2-3V IMPRESSION: No acute finding. Bilateral nephrolithiasis. External Record Review External record reviewed: Outpatient record Prescription Management I considered prescription management with: Pain Medication Discharge Plan Discharge Clinical Impression: Back pain Patient Disposition: Still a Patient Prescriptions: No Action metoprolol succinate 50 mg tablet extended release 24 hr 50 mg PO DAILY Qty: 90 1RF promethazine 12.5 mg suppository 12.5 mg TX Q6H PRN (Reason: nausea and vomiting) Qty: 12 0RF cefuroxime axetil 250 mg tablet 250 mg PO BID 7 Days Qty: 14 0RF ondansetron 4 mg tablet,disintegrating 4 mg PO Q8H PRN (Reason: nausea and vomiting) Qty: 10 0RF cyclobenzaprine 10 mg tablet 10 mg PO TID PRN (Reason: muscle spasm) Qty: 14 0RF amoxicillin-pot clavulanate 875-125 mg tablet 1 tab PO BID 7 Days Qty: 14 0RF hydroxyzine HCl 25 mg tablet 25 mg PO TID PRN (Reason: anxiety)
--- OUTSIDE RECORDS SUMMARY | 2023-02-27 17:28 | XMS_ITS | Continuity of Care Document ---
Author Name Unknown Organization [facility] ter Address [address] [place] [id number]- Care Team Providers Care Religious Education Coordinator Name Role Phone Not on Staff, PCP Primary Care Physician Unavail able Encounter [facility] Date(s): 11/05/19 - 11/05/[address] [address]- [facility] Discharge Disposition: A-D/C Home Attending Physician: Vinny SAEED, April Admitting Physician: Vinny SAEED, April Referring Physician: Vinny SAEED, April Allergies, Adverse Reactions, Alerts Substance Reaction Severity Status Motrin 1 hives Active Dilaudid hives Active Reglan Anxiety Active 1states cant take because of ulcer in stomach Immunizations Given and Recorded Vaccine Date Status Refusal Reason influenza virus vaccine, inactivated 11/16/17 Give n influenza virus vaccine, inactivated 1 11/23/15 Re corded pneumococcal 23-valent vaccine 01/16/14 Given Human Papillomavirus Vaccine 04/27/13 Given Human Papillomavirus Vaccine 2 07/19/07 Given Tet/Diphth/Acel, Pertussis (oldterm) 3 07/19/07 Gi daniela Varicella Virus Vaccine 04/28/00 Given tetanus-diphtheria toxoids (Td) 06/17/99 Given Hepatitis B Vaccine (old term) 07/12/98 Given Hepatitis B Vaccine (old term) 01/15/98 Given Hepatitis B Vaccine (old term) 10/17/97 Given Measles/Mumps/Rubella Virus Vaccine 04/26/93 Given Measles/Mumps/Rubella Virus Vaccine 05/23/92 Given Measles/Mumps/Rubella Virus Vaccine 04/14/91 Given diphtheria/tetanus/pertussis, acel(DTaP) 05/23/92 Given diphtheria/tetanus/pertussis, acel(DTaP) 05/14/90 Given diphtheria/tetanus/pertussis, acel(DTaP) 06/19/88 Given diphtheria/tetanus/pertussis, acel(DTaP) 04/30/88 Given diphtheria/tetanus/pertussis, acel(DTaP) 87 Given Poliovirus Vaccine, Inactivated 05/23/92 Given Poliovirus Vaccine, Inactivated 05/14/90 Given Poliovirus Vaccine, Inactivated 04/30/88 Given Poliovirus Vaccine, Inactivated 87 Given Haemophilus B Conj Vaccine (oldterm) 07/14/91 Give n 1[facility] History[facility] 2Admin Note: VIS GIVEN 03/12/06 3Admin Note: VIS GIVEN 08/19/05 Medications Multivitamins By Mouth, Daily, 0 Refills, Maintenance, 09/02/19 8:12:00 EDT Start Date: 09/02/19 Status: Ordered ProAir RespiClick 90 mcg/inh inhalation powder 2 puffs, Inhalation, Every 6 hours, PRN as needed, # 1 each, 0 Refills, Maintenance, 05/23/19 10:37:00 EDT, Powder, [id number], 2 puffs Inhalation Every 6 hours,PRN:as needed, 168, cm, 03/02/19 16:23:00 EST, Height, 68.8, kg, 03/02/19 16:23:00... Start Date: 05/23/19 Status: Ordered Problem List Condition Effective Dates Status Health Status Inform ant Asthma(Confirmed) 1 Active Previous delivery a ffecting (Confirmed) Active H pylori(Confirmed) Active Kidney stones(Confirmed) Active Low back pain with hx of mil d scoliosis(Confirmed) Active 1Normal spirometry 08/30/07, needs bronchial challenge. Procedures Procedure Date Related Diagnosis Body Site Status Lithotripsy Completed Vital Signs Most recent to oldest [Reference Range]: 1 Weight 74.2 kg (11/05/19 6:06 PM) Oxygen Saturation [94-100 %] 100 % (11/05/19 6:18 PM) Pulse Rate [55-90 bpm] 80 bpm (11/05/19 6:18 PM) Blood Pressure [90-138/55-84 mm Hg] 124/ 71mm Hg (11/05/19 6:18 PM) Respiratory Rate [16-30 br/min] 18 br/mi n (11/05/19 6:18 PM) Temperature [96.8-100.4 DegF] 98.3 DegF (11/05/19 6:18 PM) Mode of Delivery (Oxygen) Room air (11/05/19 6:18 PM) Blood pressure sites Arm, right (11/05/19 6:18 PM) Temperature Route Oral (11/05/19 6:18 PM) Dry Weight 74.2 kg (11/05/19 6:06 PM) Weight Obtained Via Standing scale (11/05/19 6:06 PM) Dry Weight Obtained Via Standing scale (11/05/19 6:06 PM) Social History Social History Type Response Smoking Status Former smoker entered on: 11/03/17 Sex
--- OUTSIDE RECORDS SUMMARY | 2023-02-27 17:28 | XMS_ITS | Continuity of Care Document ---
Author Name Unknown Organization [facility] ter Address [address] [place] [id number]- Care Team Providers Care Used Car Renovator Name Role Phone Not on Staff, PCP Primary Care Physician Unavail able Encounter [facility] Date(s): 03/26/20 - 03/27/[address] [address]- Discharge Disposition: A-D/C Walkout Attending Physician: Not on Staff, Attending MD Admitting Physician: Not on Staff, Admitting MD Referring Physician: Not on Staff, Referring MD Allergies, Adverse Reactions, Alerts Substance Reaction Severity Status Motrin 1 hives Active Reglan Anxiety Active Dilaudid hives Active 1states cant take because of ulcer [...] B Conj Vaccine (oldterm) 07/14/91 Give n Not Given Vaccine Date Status Refusal Reason influenza virus vaccine, inactivated 11/07/19 Not Given Patient Refuses 1Location History: [facility] 2Admin Note: VIS GIVEN 03/12/06 3Admin Note: VIS GIVEN 08/19/05 Medications acetaminophen 325 mg oral tablet 650 mg, By Mouth, Every 4 hours, not to exceed 4000 mg/day, # 50 tablet, Refills 1, Tot. Refills 1,Maintenance, 01/26/20 14:36:00 EST, Route to Pharmacy Electronically, [facility][id number], Partial fill upon patient request if the prescription is for... Start Date: 01/26/20 Status: Ordered docusate sodium 100 mg oral tablet = 100 mg, By Mouth, 2 times a day, # 100 tablet, 1 Refills, Maintenance, 01/26/20 14:36:00 EST, Tablet, [facility][id number], Partial fill upon patient request if the prescription is for a schedule II opioid drug., 167.6, cm, 01/26/20 9:00:00 EST, Heigh... Start Date: 01/26/20 Status: Ordered famotidine 20 mg oral tablet 1, tablet, By Mouth, Daily at bedtime, # 30 tablet, Refills 0, Tot. Refills 0, Maintenance, 02/10/20 8:02:00 EST, Route to Pharmacy Electronically, [id number], 167.6, cm, 01/26/20 9:00:00 EST, Height, 77.2, kg, 01/23/20 10:01:00 EST, Dry Weight Start Date: 02/10/20 Status: Ordered ferrous sulfate 325 mg oral tablet 1 tablet = 325 mg, By Mouth, 2 times a day, # 60 tablet, 1 Refills, Maintenance, 12/28/19 16:12:00 EST, [id number], Partial fill upon patient request, 168, cm, 12/28/19 16:02:00 EST, Height, 75, kg, 12/22/19 8:08:00 EST, Dry Weight Start Date: 12/28/19 Status: Ordered oxyCODONE 5 mg oral tablet 5 mg, 1, tablet, By Mouth, Every 3 hours, PRN, (4-6), # 16 tablet, Refills 0, Tot. Refills 0, Maintenance, Pain , Moderate, 01/26/20 14:35:00 EST, Route to Pharmacy Electronically, [id number], Partial fill upon patient request if the prescript... Start Date: 01/26/20 Status: Ordered Multivitamins By Mouth, Daily, 0 Refills, Maintenance, 09/02/19 8:12:00 EDT Start Date: 09/02/19 Status: Ordered simethicone 80 mg oral tablet, chewable 80 mg, Chew, 3 times a day, PRN, # 90 tablet, Refills 1, Tot. Refills 1, Maintenance, Gas, 01/25/2014:35:00 EST, Route to Pharmacy Electronically, [id number], Partial fill upon patient request if the prescription is for a schedule II opioid d... Start Date: 01/26/20 Status: Ordered Zofran 4 mg oral tablet 1 tablet = 4 mg, By Mouth, Every 8 hours, PRN as needed for nausea/vomiting, # 10 tablet, 0 Refills, Maintenance, 12/22/19 14:18:00 EST, Tablet, [id number], Partial fill upon patient request,168, cm, 12/20/19 22:39:00 EST, Height, 75, kg, ... Start Date: 12/22/19 Status: Ordered Problem List Condition Effective Dates Status Health Status Inform ant Asthma(Confirmed) 1 Active Uterine abnormality during p regnancy, antepartum(Confirmed) Active Previous delivery a ffecting (Confirmed) Active H pylori(Confirmed) Active Maternal renal lithiasis, hi story of(Confirmed) Active History of chlamydia(Confirmed) Active Low back pain with hx of mil d scoliosis(Confirmed) Active 1Normal spirometry 08/30/07, needs bronchial challenge. Results Radiology Reports * Exam Date Time Procedure Performing Provider Status 03/26/20 8:40 PM Chest 2 Views Frontal and Lat Paula Diaz; Auth (Verified) Notes: (Chest 2 Views Frontal and Lat) Reason For Exam: Chest Pain;Other: RESULT: Chest 2 Views Frontal and Lat Chest 2 Views Frontal and Lat Reason: Other:; Chest Pain; Clinical Question(s): Other: COMPARISON: None. FINDINGS: LINES AND TUBES: None. LUNGS AND PLEURA: Clear lungs. Normal pulmonary vascularity. No pleural effusion. No pneumothorax. HEART, MEDIASTINUM AND ORION: Heart is normal in size. Normal upper mediastinal and hilar contour. BONES AND SOFT TISSUES: No acute abnormality. IMPRESSION: No acute abnormality. WSN: [id number] Ordering Physician: Wilfredo Parker Dictated By: Octaviano Stephens MD Dictated Date/Time: 03/26/20 8:44 pm Reviewed By: Octaviano Stephens MD Signed By: Octaviano Stephens MD Signed Date/Time: 03/26/20 8:44 pm Transcribed By: AZUCENA Transcribed Date/Time: 03/26/20 8:43 pm Vital Signs Most recent to oldest [Reference Range]: 1 2 Oxygen Saturation [94-100 %] 100 % (03/26/20 11:34 PM) 100 % (03/26/20 8:52 PM) Pulse Rate [55-90 bpm] 92 bpm *H* (03/26/20 11:34 PM) 81 bpm (03/26/20 8:52 PM) Blood Pressure [90-138/55-84 mm Hg] 125/ 88mm Hg (03/26/20 11:34 PM) 126/85mm Hg (03/26/20 8:52 PM) Respiratory Rate [16-30 br/min] 20 br/mi n (03/26/20 11:34 PM) 16 br/min (03/26/20 8:52 PM) Temperature [96.8-100.4 DegF] 98.5 DegF (03/26/20 11:34 PM) 98.7 DegF (03/26/20 8:52 PM) Mode of Delivery (Oxygen) Room air (03/26/20 11:34 PM) Room air (03/26/20 8:52 PM) Blood pressure sites Arm, right (03/26/20 11:34 PM) Arm, right (03/26/20 8:52 PM) Temperature Route Oral (03/26/20 11:34 PM) Oral (03/26/20 8:52 PM) Social History Social History Type Response Smoking Status Former smoker entered on: 11/03/17 Sex
--- OUTSIDE RECORDS SUMMARY | 2023-02-27 17:28 | XMS_ITS | Continuity of Care Document ---
Author Name Unknown Organization [facility] ter Address [address] [place] [id number]- Care Team Providers Care Steel Pourer Name Role Phone Not on Staff, PCP Primary Care Physician Unavail able [facility] Date[facility]s): 09/[facility]/21 - 09/05/[address] [address]- Encounter Diagnosis Intractable vomiting(Final) - 09/04/21 Cannabis hyperemesis syndrome concurrent with and due to cannabis abuse(Final) - 09/04/21 Discharge Disposition: A-D/C Home Attending Physician: Solo Marquez MD Admitting Physician: Amadou Myers DO Referring Physician: Not on Staff, Referring MD [...] 11/07/19 Not Given Patient Refuses 1[facility] 2Admin Note: VIS GIVEN 03/12/06 3Admin Note: VIS GIVEN 08/19/05 Medications MorPHINE Inj 4 mg, Injection, IV Push Slowly, Every 4 hours, PRN for Pain , Severe, Routine, 09/04/21 19:32:00 EDT Start Date: 09/04/21 Stop Date: 09/05/21 Status: Discontinued Protonix 20 mg oral delayed release tablet 1 tablet = 20 mg, By Mouth, Daily, # 30 tablet, 0 Refills, Maintenance, 08/07/21 9:39:00 EDT, CR Tablet, 170, cm, 08/07/21 6:50:00 EDT, Height, 81.8, kg, 08/05/21 13:02:00 EDT, Dry Weight Start Date: 08/07/21 Status: Ordered Zofran 4 mg oral tablet 1 tablet = 4 mg, By Mouth, Every 8 hours, PRN Nausea & Vomiting, # 10 tablet, 0 Refills, Maintenance, 08/07/21 9:39:00 EDT, Tablet, [facility], Partial fill upon patient request if the prescription is for a schedule II opioid drug., 170,... Start Date: 08/07/21 Status: Ordered Problem List Condition Effective Dates Status Health Status Inform ant Asthma(Confirmed) 1 Active Uterine abnormality during p regnancy, antepartum(Confirmed) Active Previous delivery a ffecting (Confirmed) Active H pylori(Confirmed) Active Maternal renal lithiasis, hi story of(Confirmed) Active History of chlamydia(Confirmed) Active Kidney stones(Confirmed) Active Low back pain with hx of mil d scoliosis(Confirmed) Active 1Normal spirometry 08/30/07, needs bronchial challenge. Results Radiology Reports * Exam Date Time Procedure Performing Provider Status 09/04/21 12:03 PM Abdomen Series W/ PA Chest Ashley Shultz; Auth (Verified) Notes: (Abdomen Series W/ PA Chest) Reason For Exam: Pain RESULT: Abdomen Series W/ PA Chest Abdomen Series W/ PA Chest views Hx of Present Illness: Pt is coming from home , reports she did Marijuana last night and now has N V and abdominal pain. Pt is hyperventilating, encouraged to slow breathing.; Reason: Pain; Clinical Question(s): Obstruction; Free Air COMPARISON: 02/04/2021 FINDINGS: No free air under the diaphragm. No dilated small or large bowel. Nephrolithiasis with multiple bilateral renal stones. Largest stones measure approximately 5 mm Pelvic calcifications are likely phleboliths. IMPRESSION: No evidence of pneumoperitoneum, obstruction or ileus. Nephrolithiasis as also noted on prior CT WSN: [id number] Ordering Physician: Janiya Cortez Dictated By: Ajay Casanova MD Dictated Date/Time: 09/04/21 12:07 p Reviewed By: Ajay Casanova MD Signed By: Ajay Casanova MD Signed Date/Time: 09/04/21 12:07 pm Transcribed By: AZUCENA Transcribed Date/Time: 09/04/21 12:05 pm Vital Signs Most recent to oldest [Reference Range]: 1 2 3 Height 168 cm (09/05/21 7:50 AM) 168 cm (09/05/21 4:20 AM) 168 cm (09/05/21 12:04 AM) Weight 76.36 kg (09/04/21 7:13 PM) Oxygen Saturation [94-100 %] 100 % (09/05/21 7:50 AM) 97 % (09/05/21 4:20 AM) 100 % (09/05/21 12:04 AM) Pulse Rate [55-90 bpm] 56 bpm (09/05/21 7:50 AM) 81 bpm (09/05/21 4:20 AM) 73 bpm (09/05/21 12:04 AM) Body Mass Index [18.5-24.99] 27.05 *H* (09/04/21 7:13 PM) Blood Pressure [90-138/55-84 mm Hg] 135/76mm Hg (09/05/21 7:50 AM) 129/72mm Hg (09/05/21 4:20 AM) 130/69mm Hg (09/05/21 12:04 AM) Respiratory Rate [16-30 br/min] 18 br/min (09/05/21 7:50 AM) 18 br/min (09/05/21 7:37 AM) 18 br/min (09/05/21 7:07 AM) Temperature [96.8-100.4 DegF] 97.6 DegF (09/05/21 7:50 AM) 98.1 DegF (09/05/21 4:20 AM) 98.5 DegF (09/05/21 12:04 AM) Mode of Delivery (Oxygen) Room air (09/05/21 7:50 AM) Room air (09/05/21 4:20 AM) Room air (09/05/21 12:04 AM) Blood pressure sites Arm, right (09/05/21 7:50 AM) Arm, left (09/05/21 4:20 AM) Arm, left (09/05/21 12:04 AM) Temperature Route Oral (09/05/21 7:50 AM) Oral (09/05/21 4:20 AM) Oral (09/05/21 12:04 AM) Dry Weight 76.36 kg (09/04/21 7:13 PM) Weight Obtained Via Bed scale (09/04/21 7:13 PM) Social History Social History Type Response Smoking Status Former smoker entered on: 11/03/17 Sex
--- OUTSIDE RECORDS SUMMARY | 2023-02-27 17:28 | XMS_ITS | Continuity of Care Document ---
Author Name Unknown Organization [facility] ter Address [address] [place] [id number]- Care Team Providers Care Green Marketer Name Role Phone Not on Staff, PCP Primary Care Physician Unavail able [facility] Date(s): 01/19/20 - 01/19/[address] [id number] Discharge Disposition: A-D/C Home Attending Physician: Bibiana Loza MD Admitting Physician: Bibiana Loza MD Referring Physician: Bibiana Loza MD Allergies, Adverse Reactions, Alerts Substance Reaction [...] 03/12/06 3Admin Note: VIS GIVEN 08/19/05 Medications clotrimazole 2% vaginal cream with applicator 1 application, Vaginally, Daily at bedtime, for 3 days, # 21 Gm, 0 Refills, Acute 01/22/20 9:16:00 EST, 01/19/20 9:16:00 EST, Cream, [facility]/pharmacy #[id number], Partial fill upon patient request if the prescription is for a schedule II opioid drug., 1 applica... Start Date: 01/19/20 Stop Date: 01/22/20 Status: Ordered famotidine 20 mg oral tablet See Instructions, TAKE 1 TABLET BY MOUTH EVERYDAY AT BEDTIME, # 30 tablet, Refills 0, Tot. Refills 0, 01/18/20 8:57:00 EST, Instructions Replace Required Details, Route to Pharmacy Electronically, [facility]/pharmacy #[id number], 165, cm, 01/18/20 8:51:00 EST, Hei... Start Date: 01/18/20 Status: Ordered ferrous sulfate 325 mg oral tablet 1 tablet = 325 mg, By Mouth, 2 times a day, # 60 tablet, 1 Refills, Maintenance, 12/28/19 16:12:00 EST, [facility], Partial fill upon patient request, 168, cm, 12/28/19 16:02:00 EST, Height, 75, kg, 12/22/19 8:08:00 EST, Dry Weight Start Date: 12/28/19 Status: Ordered Multivitamins By Mouth, Daily, 0 Refills, Maintenance, 09/02/19 8:12:00 EDT Start Date: 09/02/19 Status: Ordered Zofran 4 mg oral tablet 1 tablet = 4 mg, By Mouth, Every 8 hours, PRN as needed for nausea/vomiting, # 10 tablet, 0 Refills, Maintenance, 12/22/19 14:18:00 EST, Tablet, [id number], Partial fill upon patient request,168, cm, 12/20/19 22:39:00 EST, Height, 75, kg, 11/... Start Date: 12/22/19 Status: Ordered Problem List Condition Effective Dates Status Health Status Inform ant Asthma(Confirmed) 1 Active Uterine abnormality during p regnancy, antepartum(Confirmed) Active Previous delivery a ffecting (Confirmed) Active H/O: depression(Confirmed) 2 11/06/19 Active H pylori(Confirmed) Active Maternal renal lithiasis, hi story of(Confirmed) Active History of chlamydia(Confirmed) Active Low back pain with hx of mil d scoliosis(Confirmed) Active 1Normal spirometry 08/30/07, needs bronchial challenge. 2Problem added by Discern Expert Vital Signs Most recent to oldest [Reference Range]: 1 2 3 Height 165 cm (01/19/20 12:41 PM) Weight 78.4 kg (01/19/20 12:41 PM) 78.4 kg (01/19/20 7:49 AM) Oxygen Saturation [94-100 %] 98 % (01/19/20 7:59 AM) Pulse Rate [55-90 bpm] 84 bpm (01/19/20 12:41 PM) Body Mass Index [18.5-24.99] 28.8 *H* (01/19/20 12:41 PM) Blood Pressure [90-138/55-84 mm Hg] 133/85mm Hg (01/19/20 2:43 PM) 127/79mm Hg (01/19/20 12:41 PM) 127/79mm Hg (01/19/20 12:33 PM) Respiratory Rate [16-30 br/min] 18 br/min (01/19/20 12:41 PM) 20 br/min (01/19/20 12:33 PM) 20 br/min (01/19/20 7:59 AM) Temperature [96.8-100.4 DegF] 98.6 DegF (01/19/20 12:41 PM) 98.2 DegF (01/19/20 12:33 PM) 98.0 DegF (01/19/20 7:59 AM) Mode of Delivery (Oxygen) Room air (01/19/20 12:33 PM) Room air (01/19/20 7:59 AM) Blood pressure sites Arm, left (01/19/20 12:41 PM) Arm, left (01/19/20 12:33 PM) Arm, right (01/19/20 7:59 AM) Temperature Route Axillary (01/19/20 12:41 PM) Oral (01/19/20 12:33 PM) Oral (01/19/20 7:59 AM) Dry Weight 78.4 kg (01/19/20 12:41 PM) 78.4 kg (01/19/20 7:49 AM) Social History Social History Type Response Smoking Status Former smoker entered on: 11/03/17 Sex
--- OUTSIDE RECORDS SUMMARY | 2023-02-27 17:28 | XMS_ITS | Continuity of Care Document ---
Author Name Unknown Organization [facility] Address [address] [place] [phone]- Care Team Providers Care Line Producer Name Role Phone Not on Staff, PCP Primary Care Physician Unavail able [facility]): 07[facility] - 08/21/[address] [address] Attending Physician: Ana Montemayor Admitting Physician: Ana Montemayor Referring Physician: Ana Montemayor Allergies, Adverse Reactions, Alerts Substance Reaction Severity [...] 03/12/06 3Admin Note: VIS GIVEN 08/19/05 Medications Protonix 20 mg oral delayed release tablet [...] 0 Refills, Maintenance, 08/07/21 9:39:00 EDT, Tablet, [facility], Partial fill upon patient request if [...] Active 1Normal spirometry 08/30/07, needs bronchial challenge. Social History Social History Type Response Smoking Status Former smoker entered on: 11/03/17 Sex
--- OUTSIDE RECORDS SUMMARY | 2023-02-27 17:28 | XMS_ITS | Continuity of Care Document ---
Author Name Unknown Organization [facility] Address [address] [place] [address]- Care Team Providers Care Mid Wife Name Role Phone Irina FIGUEROA, Elke Primary Care Physician Encounter [facility] Date(s): 05/23/19 - 06/02/19 [facility] [address] [place] [phone] [facility] Attending Physician: Chacho Gallegos Admitting Physician: AdmChacho butcher Referring Physician: Admtr ArUlises Allergies, Adverse Reactions, Alerts Substance Reaction Severity [...] 03/12/06 3Admin Note: VIS GIVEN 08/19/05 Medications ondansetron 4 mg oral tablet PRN as needed for nausea/vomiting, 0 Refills, Maintenance, 08/22/18 2:53:44 EDT, Tablet Start Date: 08/22/18 Status: Ordered ProAir RespiClick 90 mcg/inh inhalation [...]
--- OUTSIDE RECORDS SUMMARY | 2023-02-27 17:28 | XMS_ITS | Continuity of Care Document ---
Author Name Unknown Organization [facility] ter Address [address] [place] [id number]- Care Team Providers Care Textile Dyer Name Role Phone Not on Staff, PCP Primary Care Physician Unavail able [facility]s): 12/20/19 - 01/20/[address] [address] Attending Physician: Vernell Casillas DO Admitting Physician: Vernell Casillas DO Referring Physician: Vernell Casillas DO Allergies, Adverse Reactions, Alerts Substance Reaction Severity [...] 01/22/20 9:16:00 EST, 01/19/20 9:16:00 EST, Cream, [facility]/pharmacy #[id number], Partial fill upon patient request if the prescription is for a schedule II opioid drug., 1 applica... Start Date: 01/19/20 Stop Date: 01/22/20 Status: Ordered famotidine 20 mg oral tablet See Instructions, TAKE 1 TABLET BY MOUTH EVERYDAY AT BEDTIME, # 30 tablet, Refills 0, Tot. Refills 0, 01/18/20 8:57:00 EST, Instructions Replace Required Details, Route to Pharmacy Electronically, [facility]/pharmacy #[id number], 165, cm, 01/18/20 8:51:00 [...] bronchial challenge. 2Problem added by Discern Expert Social History Social History Type Response Smoking Status Former smoker entered on: 11/03/17 Sex
--- OUTSIDE RECORDS SUMMARY | 2023-02-27 17:28 | XMS_ITS | Continuity of Care Document ---
Author Name Unknown Organization [facility] ter Address [address] [place] [address]- Care Team Providers Care Senior Director Of [employer] Name Role Phone Not on Staff, PCP Primary Care Physician Unavail able [facility] Date(s): 10/04/21 - 10/05/[address] [address]- Encounter Diagnosis Nausea and vomiting in adult(Final) - 10/05/21 Discharge Disposition: A-D/C Home Attending Physician: Ahsan Hoover MD Admitting Physician: Ahsan Hoover MD Referring Physician: Not on Staff, Referring [...] 0 Refills, Maintenance, 08/07/21 9:39:00 EDT, Tablet, [facility], Partial fill upon patient [...] Active 1Normal spirometry 08/30/07, needs bronchial challenge. Vital Signs Most recent to oldest [Reference Range]: 1 2 3 Oxygen Saturation [94-100 %] 99 % (10/05/21 4:21 PM) 97 % (10/05/21 3:34 PM) 100 % (10/05/21 10:22 AM) Pulse Rate [55-90 bpm] 88 bpm (10/05/21 4:21 PM) 70 bpm (10/05/21 3:34 PM) 85 bpm (10/05/21 10:22 AM) Blood Pressure [90-138/55-84 mm Hg] 133/87mm Hg (10/05/21 4:21 PM) 101/60mm Hg (10/05/21 3:34 PM) 151/77mm Hg *H* (10/05/21 10:22 AM) Respiratory Rate [16-30 br/min] 16 br/min (10/05/21 4:21 PM) 16 br/min (10/05/21 3:34 PM) 18 br/min (10/05/21 10:22 AM) Temperature [96.8-100.4 DegF] 98.8 DegF (10/05/21 4:21 PM) 98.8 DegF (10/05/21 3:34 PM) 98.8 DegF (10/05/21 10:22 AM) Mode of Delivery (Oxygen) Room air (10/05/21 4:21 PM) Room air (10/05/21 3:34 PM) Room air (10/05/21 10:22 AM) Blood pressure sites Arm, right (10/05/21 4:21 PM) Arm, right (10/05/21 3:34 PM) Arm, left (10/05/21 10:22 AM) Temperature Route Oral (10/05/21 4:21 PM) Oral (10/05/21 3:34 PM) Oral (10/05/21 10:22 AM) Social History Social History Type Response Smoking Status Former smoker entered on: 11/03/17 Sex Care Team Personnel Name: Not on Staff, PCP
--- OUTSIDE RECORDS SUMMARY | 2023-02-27 17:28 | XMS_ITS | Continuity of Care Document ---
Author Name Unknown Organization [facility] ter Address [address] [place] [id number]- Care Team Providers Care Plumber Assistant Name Role Phone Not on Staff, PCP Primary Care Physician Unavail able [facility] Date[facility]): 05/04/22 - 05/05/[address] [address]- Encounter Diagnosis Vomiting(Final) - 05/04/22 Discharge Disposition: A-D/C Home Attending Physician: Krystle Cortez DO Admitting Physician: Solo Marquez MD Referring Physician: Not on Staff, Referring [...] 03/12/06 3Admin Note: VIS GIVEN 08/19/05 Medications No Known Medications Problem List Condition Confirmation Course Effective Dates Status Health St atus Informant Asthma 1 Confirmed Active Uterine abnormality during , antepartum Confirmed Active Previous delivery affecting Confirmed Active H pylori Confirmed Active Maternal renal lithiasis, history of Confirmed Active History of chlamydia Confirmed Active Kidney stones Confirmed Active Low back pain with hx of mild scoliosis Confirmed Active 1Normal spirometry 08/30/07, needs bronchial challenge. Vital Signs Most recent to oldest [Reference Range]: 1 2 3 Oxygen Saturation [94-100 %] 100 % (05/05/22 6:44 AM) 97 % (05/05/22:27 AM) 99 % (05/05/22 2:59 AM) Pulse Rate [55-90 bpm] 68 bpm (05/05/22 6:44 AM) 67 bpm (05/05/22 5:27 AM) 71 bpm (05/05/22 2:59 AM) Blood Pressure [90-138/55-84 mm Hg] 122/72mm Hg (05/05/22 6:44 AM) 115/82mm Hg (05/05/22 5:27 AM) 115/82mm Hg (05/05/22 2:59 AM) Respiratory Rate [16-30 br/min] 14 br/min *L* (05/05/22 6:44 AM) 21 br/min (05/05/22 5:27 AM) 12 br/min *L* (05/05/22 2:59 AM) Temperature [96.8-100.4 DegF] 98.3 DegF (05/05/22 5:27 AM) 98.3 DegF (05/04/22 7:52 PM) 97.4 DegF (05/04/22 9:28 AM) Liters per Minute 2 L/min (05/04/22 11:24 AM) Mode of Delivery (Oxygen) Room air (05/05/22 6:44 AM) Room air (05/05/22 5:27 AM) Room air (05/05/22 2:59 AM) Blood pressure sites Arm, left (05/05/22 6:44 AM) Arm, left (05/05/22 5:27 AM) Temperature Route Oral (05/05/22 5:27 AM) Oral (05/04/22 7:52 PM) Oral (05/04/22 9:28 AM) Social History Social History Type Response Smoking Status Former smoker entered on: 11/03/17 Sex History and physical note * Alma SAEED, Solo: PERFORM Event Display: History and Physical Hospital Authored Date: Patient: ??ENRIQUEAT MIGUEL ? Age:??36 Years?Sex:??Female?:??1985?? Chief Complaint/Reason for Consultation abd pain vomiting ?? History of Present Illness 36-year-old female with past medical history of marijuana use, history of cholelithiasis presented to ED with complaint of nausea vomiting and abdominal pain for past??5 days ?? Patient told me that symptoms started 5 days ago. Abd pain in epigastric area 10/18, radiating to entire??abdomen, with no aggravating or relieving factor but associated with vomiting along with nausea. ??Multiple episodes of vomiting without any blood in the vomitus.? No diarrhea/dysuria/melena/bleeding per rectum No chest pain, fever, chills, dysuria, hematuria. ?? No numbness, tingling or focal weakness Review of Systems ROS: All systems reviewed and negative except as in HPI Objective Vital Signs?? Temperature: 97.4 DegF (05/04/22 09:28:00) Temperature Route: Oral (05/04/22 09:28:00) Pulse Rate: 71 bpm (05/04/22 13:51:00) Respiratory Rate:??11 br/min??Low (05/04/22 13:51:00) Systolic Blood Pressure: 127 mm Hg (05/04/22 13:51:00) Diastolic Blood Pressure: 61 mm Hg (05/04/22 13:51:00) Blood pressure sites: Arm, right (05/03/22 17:42:00) Mean Arterial Pressure: 104 mm Hg (05/04/22 09:28:00) Pulse Pressure: 41 mm Hg (05/04/22 09:28:00) Oxygen Saturation: 100 % (05/04/22 13:51:00) Liters per Minute: 2 L/min (05/04/22 11:24:00) Mode of Delivery (Oxygen): Room air (05/04/22 13:51:00) Early Warning Score: 6 (05/04/22 13:52:11) ? Physical Exam FILER HELPER: AA0 3, no focal motor or sensory deficit, cranial nerves II to XII intact CVS: RRR, S1, S2, No gallop, murmur or rub Resp: b/l good air entry, no wheezing or rhales, CTA b/l GI: Soft, epigastric and mid abdomen??TTP but no rebound, guarding or rigidity, ND, BS +ve EXT: no pedal edema Skin: no rash Neck: supple, no thyromegaly or lymphadenopathy Eyes: PERRLA, EOMI?? Head: atraumatic, normocephalic ENMT: moist mucus membranes, nares patent with no discharge Musculoskeletal: no joint tenderness, swelling or limitation of movement ?? Assessment/Plan ? 36-year-old female here with nausea vomiting and abdominal pain ?? Nausea vomiting and abdominal.?? From marijuana hyperemesis??syndrome Daily use of marijuana--heavy use as per pt Abdominal examination is benign Lactate wnl Lipase and AST and ALT no acute Similar presentation in the past Counseling to stop marijuana use IV fluid Serial abdominal examination Symptomatic management NPO ?? Hypokalemia/prolonged QTC: K replacement tele ?? Leukocytosis: Likely reactive. ??Monitor off antibiotic ?? High bili--mainly indirect. PCP f/u ?? Anxiety: Denies suicidal homicidal ideation. ?? DVT prophylaxis: Pneumoboots ?? Histories Allergies Allergies ?(Active and Proposed Allergies Only) Reglan? (Severity: Unknown severity, Onset: Unknown) ?Reactions: Anxiety Motrin? (Severity: Unknown severity, Onset: Unknown) ?Reactions: hives ?Comments: states cant take because of ulcer in stomach Dilaudid? (Severity: Unknown severity, Onset: Unknown) ?Reactions: hives ? Medications Home Medications None ?? Past medical history: History of marijuana use, asthma and cholelithiasis ?? Social history: Positive for marijuana use--she said uses it too [facility]. ??Occasional alcohol intake.??No smoking ?? Family history: Parents with history of hypertension ? Results ? CBC, CBC w/Diff?? CBC?? Differential?? WBC:??18.6 k/mm3??High (10:12) Abs. Neut:??13.9 k/mm3??High (10:12) RBC:??5.71 m/mm3??High (10:12) Abs. Lymph: 3.1 k/mm3 (10:12) Hct: 44.2 % (10:12) Abs. Millard:??1.4 k/mm3??High (10:12) RDW-SD: 40 femtoliters (10:12) Abs. Eo: 0 k/mm3 (10:12) Nucleated RBC (Automated): 0 #/100 WBC'S (10:12) Abs. Baso: 0.1 k/mm3 (10:12) Abs. NRBC: 0 k/mm3 (10:12) Neut %: 74.9 % (10:12) ?? Lymph %: 16.5 % (10:12) ?? Millard %: 7.4 % (10:12) ?? Eos %: 0.1 % (10:12) ?? Baso %: 0.3 % (10:12) ?? Imm Gran: 0.8 % (10:12) ?? Abs. Imm Gran: 0.2 k/mm3 (10:12) ? BMP, Mg, and Phos Anion Gap: 13 (10:12) Bicarbonate Level:??33 mmol/L??High (10:12) BUN: 11 mg/dL (10:12) Calcium: 9.9 mg/dL (10:12) Chloride:??88 mmol/L??Low (10:12) Creatinine-Blood: 0.9 mg/dL (10:12) Estimated GFR Creatinine: 88 ML/MIN/1.73 M2 (10:12) Glucose Level:??105 mg/dL??High (10:12) Magnesium: 2.2 mg/dL (10:12) Potassium:??2.4 mmol/L??Critical (10:12) Sodium: 134 mmol/L (10:12) ?? Coagulation Profile?? No qualifying data available. ?? LFT Albumin: 4.7 Gm/dL (10:12) Alkaline Phosphatase: 75 units/L (10:12) ALT (SGPT): 16 units/L (10:12) AST (SGOT): 18 units/L (10:12) Bilirubin, Total:??1.7 mg/dL??High (10:12) ?? Urinalysis?? No qualifying data available. ?? Microbiology ?? COVID-19 (Novel Coronavirus), Rapid PCR?? Completed?? Source: Nasal Body Site: Nose Collected Dt/Tm: 05/04/2022 09:10 Last Updated Dt/Tm: 05/04/2022 12:38 ? Blood Gases?? No qualifying data available. ?? Uric/LDH?? No qualifying data available. ? EKG study * Event Display: EKG Authored Date: * Event Display: ECG 12-Lead Authored Date: Please click on pdf link to open report * Event Display: ECG 12-Lead Authored Date: Ventricular Rate: 63 BPM Atrial Rate: 63 BPM P-R Interval: 128 ms QRS Duration: 92 ms Q-T Interval: 522 ms QTC Calculation(Bazett): 534 ms P Dulac: 32 degrees R Dulac: 11 degrees T Dulac: 49 degrees Critical Test Result: Long QTc Normal sinus rhythm Prolonged QT Abnormal ECG When compared with ECG of 04-OCT-2021 23:08, Minimal criteria for Inferior infarct are no longer Present T wave inversion no longer evident in Inferior leads QT has lengthened Confirmed by LILIBETH HERNANDEZ ([id number]) on 05/05/2022 12:20:04 PM Stephens: LILIBETH HERNANDEZ Note * Krystle Cortez DO S: PERFORM Event Display: Discharge/Transfer Note Hospital Authored Date: [id number] Patient: ??LAMONT, ENRIQUETA ? Age:??36 Years?Sex:??Female?:??1985?? Patient Information [facility] Primary Care Physician: Not on Staff, PCP Admit Date/Time: 05/04/22 11:40 Discharge Date:??05/05/2022 07:54 Discharge Disposition Discharge Disposition: Home: No Services Discharge Diagnosis Vomiting (R11.10) ??Cannabis hyperemesis syndrome _ Discharge Medications No medications documented.? Hospital Course 36-year-old female here with nausea vomiting and abdominal pain ?? Nausea vomiting and abdominal pain ??From marijuana hyperemesis??syndrome Daily use of marijuana--heavy use as per pt Abdominal examination is benign Lactate wnl Lipase and AST and ALT no acute Similar presentation in the past Counseling to stop marijuana use improved with supportive care feeling well and tolerating diet currently ?? Hypokalemia/prolonged QTC: K replacement resolved ?? Leukocytosis: Likely reactive. afebrile resolved ?? Objective Vital Signs?? Temperature: 98.3 DegF (05/05/22 05:27:00) Temperature Route: Oral (05/05/22 05:27:00) Pulse Rate: 68 bpm (05/05/22 06:44:00) Respiratory Rate:??14 br/min??Low (05/05/22 06:44:00) Systolic Blood Pressure: 122 mm Hg (05/05/22 06:44:00) Diastolic Blood Pressure: 72 mm Hg (05/05/22 06:44:00) Blood pressure sites: Arm, left (05/05/22 06:44:00) Mean Arterial Pressure: 93 mm Hg (05/05/22 05:27:00) Pulse Pressure: 50 mm Hg (05/05/22 06:44:00) Oxygen Saturation: 100 % (05/05/22 06:44:00) Liters per Minute: 2 L/min (05/04/22 11:24:00) Mode of Delivery (Oxygen): Room air (05/05/22 06:44:00) Early Warning Score: 0 (05/05/22 06:45:32) ? . Physical Exam General:??NAD Head:??NCAT Eyes:??EOMI Ear, Nose and Throat:??MMM Respiratory:??CTA Cardiovascular:RRR Gastrointestinal:??soft nt nd Neurologic :alert and oriented ?? Pending Results Add On Lab Order ordered on 05/04/2022 Follow-Up Appointments Added Follow Up ?Time Frame ?Comments Not on Staff, PCP Home Health Face to Face ^HomeHealthFTF Results Discharge Labs BLOOD COUNT & DIFF WBC 9.0 k/mm3 ()?? 05/05/2022 05:32 RBC 4.64 m/mm3 ()?? 05/05/2022 05:32 Hgb 11.9 Gm/dL ()?? 05/05/2022 05:32 Hct 37.3 % ()?? 05/05/2022 05:32 MCV 80.4 femtoliters ()?? 05/05/2022 05:32 MCH 25.6 pg (Low)?? 05/05/2022 05:32 MCHC 31.9 g/dL (Low)?? 05/05/2022 05:32 Platelet Count 209 k/mm3 ()?? 05/05/2022 05:32 RDW-SD 43.7 femtoliters ()?? 05/05/2022 05:32 MPV 11.4 femtoliters ()?? 05/05/2022 05:32 Nucleated RBC (Automated) 0.0 #/100 WBC'S ()?? 05/05/2022 05:32 Abs. NRBC 0.0 k/mm3 ()?? 05/05/2022 05:32 Abs. Neut 3.9 k/mm3 ()?? 05/05/2022 05:32 Abs. Lymph 4.0 k/mm3 (High)?? 05/05/2022 05:32 Abs. Millard 0.8 k/mm3 ()?? 05/05/2022 05:32 Abs. Eo 0.1 k/mm3 ()?? 05/05/2022 05:32 Abs. Baso 0.1 k/mm3 ()?? 05/05/2022 05:32 Neut % 44.0 % ()?? 05/05/2022 05:32 Lymph % 45.0 % (High)?? 05/05/2022 05:32 Millard % 8.8 % ()?? 05/05/2022 05:32 Eos % 1.1 % ()?? 05/05/2022 05:32 Baso % 0.7 % ()?? 05/05/2022 05:32 Imm Gran 0.4 % ()?? 05/05/2022 05:32 Abs. Imm Gran 0.0 k/mm3 ()?? 05/05/2022 05:32 ?? CHEM GENERAL Sodium 139 mmol/L ()?? 05/05/2022 05:32 Potassium 3.7 mmol/L ()?? 05/05/2022 05:32 Chloride 103 mmol/L ()?? 05/05/2022 05:32 Bicarbonate Level 29 mmol/L ()?? 05/05/2022 05:32 Anion Gap 7 ()?? 05/05/2022 05:32 Glucose Level 100 mg/dL (High)?? 05/05/2022 05:32 BUN 8 mg/dL ()?? 05/05/2022 05:32 Creatinine-Blood 0.8 mg/dL ()?? 05/05/2022 05:32 Estimated GFR Creatinine 94 ML/MIN/1.73 M2 ()?? 05/05/2022 05:32 Calcium 8.8 mg/dL ()?? 05/05/2022 05:32 Magnesium 2.2 mg/dL ()?? 05/04/2022 10:12 Protein, Total 7.4 Gm/dL ()?? 05/04/2022 10:12 Albumin 4.7 Gm/dL ()?? 05/04/2022 10:12 AG Ratio 1.7 ()?? 05/04/2022 10:12 Alkaline Phosphatase 75 units/L ()?? 05/04/2022 10:12 Lipase 13 units/L ()?? 05/04/2022 10:12 AST (SGOT) 18 units/L ()?? 05/04/2022 10:12 ALT (SGPT) 16 units/L ()?? 05/04/2022 10:12 Bilirubin, Total 1.7 mg/dL (High)?? 05/04/2022 10:12 Lactate 2.2 mmol/L ()?? 05/04/2022 09:55 ?? ENDOCRINE/TUMOR MARKER Blood <1 mIU/mL ()?? 05/04/2022 10:12 ? VIROLOGY COVID-19 by RT-PCR NEGATIVE ()?? 05/04/2022 11:30 ? Microbiology ?? COVID-19 (Novel Coronavirus), Rapid PCR?? Completed?? Source: Nasal Body Site: Nose Collected Dt/Tm: 05/04/2022 09:10 Last Updated Dt/Tm: 05/04/2022 12:38 ? 35_ minutes spent on discharge Patient Care team information Care Team Personnel Name: Amber Ortiz RN Position: [facility] PCO RN Member Role: Primary Care Nurse Name: Ashley Heart RN Position: [facility] AMB Nurse Member Role: Primary Care Nurse Name: Ashly Olivares RN Position: [facility] RN Member Role: Primary Care Nurse Name: Chayo Michele RN Position: [facility] OB RN Member Role: Primary Care Nurse Name: Amando Clark RN Position: [facility] RN Member Role: Primary Care Nurse Name: Not on Staff, PCP Position: [facility] Physician (General Medicine) Member Role: PCP Name: Juan A Marino RN Position: [facility] RN Member Role: Primary Care Nurse Name: Kristine Donaldson RN Position: [facility] RN Member Role: Primary Care Nurse Name: Humza Melton Position: [facility] RN Member Role: Primary Care Nurse Name: Loli Nuñez LPN Position: [facility] RN Member Role: Primary Care Nurse Name: *Clifford MITCHELL Attending Position: [facility] ED Medicine MD Name: Diya Ortiz Position: [facility] ED TA [facility] Member Role: Patient Care Provider Name: Yaritza Wiley Position: [facility] ED RN W/OE and Tasks Member Role: Patient Care Provider Name: Ajay Mao Position: [facility] ED TA [facility] Member Role: Patient Care Provider Care Team Related Persons Name: KYLE RAMSEY Address: [place] [address] Name: CONCHITA JONES Name: ANIVAL MIGEUL Address: home [address] [place] [address] Name: YANNICK PICKENS Address: [id number] Address: home [address] [place] [address] Name: DARRIAN PICKENS Address: home [address] [place] [address] Name: SIMÓN PICKENS Address: [id number] Address: home [address] [address]
--- OUTSIDE RECORDS SUMMARY | 2023-02-27 17:28 | XMS_ITS | Continuity of Care Document ---
Author Name Unknown Organization [facility] ter Address [address] [place] [id number]- Care Team Providers Care Quality Control Industrial Engineer Name Role Phone Not on Staff, PCP Primary Care Physician Unavail able [facility] 11[facility] - 11/07/[address] [address]- [facility] Discharge Disposition: A-D/C Home Attending Physician: Loli García DO Admitting Physician: Loli García DO Referring Physician: Loli García DO Allergies, Adverse Reactions, Alerts Substance Reaction [...] 03/12/06 3Admin Note: VIS GIVEN 08/19/05 Medications Benadryl Tablet = 12.5 mg, By Mouth, Every 6 hours, 0 Refills, Maintenance, 11/06/19 20:07:00 EDT Start Date: 11/06/19 Status: Ordered Multivitamins By Mouth, Daily, 0 Refills, Maintenance, 09/02/19 8:12:00 EDT Start Date: 09/02/19 Status: Ordered ProAir RespiClick 90 mcg/inh inhalation powder 2 puffs, Inhalation, Every 6 hours, PRN as needed, # 1 each, 0 Refills, Maintenance, 05/23/19 10:37:00 EDT, Powder, [facility]/pharmacy #[id number], 2 puffs Inhalation Every 6 hours,PRN:as needed, 168, cm, 03/02/19 16:23:00 EST, Height, 68.8, kg, 03/02/19 16:23:00... Start Date: 05/23/19 Status: Ordered Tylenol 325 mg oral tablet 975 mg, 3, tablet, By Mouth, Every 6 hours, PRN, for 5 days, # 50 tablet, Refills 0, Tot. Refills 0, Acute 11/12/19 17:48:00 EDT, Pain , Moderate, 11/07/19 17:48:00 EDT, Route to Pharmacy Electronically, [facility]/pharmacy #[id number], 168, cm, 11/07/19 13:45:00... Start Date: 11/07/19 Stop Date: 11/12/19 Status: Ordered Problem List Condition Effective Dates Status Health Status Inform ant Asthma(Confirmed) 1 Active Previous delivery a ffecting (Confirmed) Active H/O: depression(Confirmed) 2 11/06/19 Active H pylori(Confirmed) Active Kidney stones(Confirmed) Active Low back pain with hx of mil d scoliosis(Confirmed) Active Anxiety and depression(Confirmed) Active 1Normal spirometry 08/30/07, needs bronchial challenge. 2Problem added by Discern Expert Vital Signs Most recent to oldest [Reference Range]: 1 2 3 Height 168 cm (11/07/19 4:00 PM) 168 cm (11/07/19 12:22 PM) 168 cm (11/07/19 8:48 AM) Weight 74.0 kg (11/06/19 8:05 PM) Oxygen Saturation [94-100 %] 98 % (11/07/19 4:00 PM) 96 % (11/07/19 12:22 PM) 95 % (11/07/19 4:11 AM) Pulse Rate [55-90 bpm] 75 bpm (11/07/19 4:00 PM) 71 bpm (11/07/19 12:22 PM) 68 bpm (11/07/19 8:48 AM) Blood Pressure [90-138/55-84 mm Hg] 121/69mm Hg (11/07/19 4:00 PM) 111/63mm Hg (11/07/19 12:22 PM) 109/60mm Hg (11/07/19 8:48 AM) Respiratory Rate [16-30 br/min] 20 br/min (11/07/19 6:36 PM) 18 br/min (11/07/19 4:00 PM) 20 br/min (11/07/19 12:22 PM) Temperature [96.8-100.4 DegF] 97.6 DegF (11/07/19 4:00 PM) 98.2 DegF (11/07/19 12:22 PM) 97.8 DegF (11/07/19 8:48 AM) Mode of Delivery (Oxygen) Room air (11/07/19 4:11 AM) Room air (11/07/19 12:19 AM) Room air (11/06/19 10:40 PM) Blood pressure sites Arm, right (11/07/19 4:11 AM) Arm, right (11/07/19 12:00 AM) Arm, right (11/06/19 10:00 PM) Temperature Route Oral (11/07/19 4:00 PM) Oral (11/07/19 12:22 PM) Oral (11/07/19 8:48 AM) Dry Weight 74.0 kg (11/06/19 8:05 PM) Weight Obtained Via Standing scale (11/06/19 8:05 PM) Social History Social History Type Response Smoking Status Former smoker entered on: 11/03/17 Sex
--- OUTSIDE RECORDS SUMMARY | 2023-02-27 17:28 | XMS_ITS | Continuity of Care Document ---
Author Name Unknown Organization [facility] ter Address [address] [place] [id number]- Care Team Providers Care Primary Care Physician Name Role Phone Not on Staff, PCP Primary Care Physician Unavail able [facility]counter [facility] Date[facility]s): 01/22/21 - 01/22/[address] [address]- Discharge Disposition: A-D/C Home Attending Physician: Rigo Burrows MD Admitting Physician: Rigo Burrows MD Referring Physician: Not on Staff, Referring [...] 11/07/19 Not Given Patient Refuses 1Location History: [facility] 2Admin Note: VIS GIVEN 03/12/06 3Admin Note: VIS GIVEN 08/19/05 Medications acetaminophen 325 mg oral tablet 650 mg, By Mouth, Every 4 hours, not to exceed 4000 mg/day, # 50 tablet, Refills 1, Tot. Refills 1,Maintenance, 01/26/20 14:36:00 EST, Route to Pharmacy Electronically, [facility]/pharmacy #[id number], Partial fill upon patient request if the prescription is for... Start Date: 01/26/20 Status: Ordered docusate sodium 100 mg oral tablet = 100 mg, By Mouth, 2 times a day, # 100 tablet, 1 Refills, Maintenance, 01/26/20 14:36:00 EST, Tablet, [facility]/pharmacy #[id number], Partial fill upon patient request if the prescription is for a schedule II opioid drug., 167.6, cm, 01/26/20 9:00:00 EST, Heigh... Start Date: 01/26/20 Status: Ordered famotidine 20 mg oral tablet 1, tablet, By Mouth, Daily at bedtime, # 30 tablet, Refills 0, Tot. Refills 0, Maintenance, 02/10/20 8:02:00 EST, Route to Pharmacy Electronically, [facility] STORE [id number], 167.6, cm, 01/26/20 9:00:00 EST, Height, 77.2, [...] Range]: 1 2 Oxygen Saturation [94-100 %] 97 % (01/22/21 11:42 AM) 100 % (01/22/21 9:06 AM) Pulse Rate [55-90 bpm] 108 bpm *H* (01/22/21 11:42 AM) 115 bpm *H* (01/22/21 9:06 AM) Blood Pressure [90-138/55-84 mm Hg] 125/ 81mm Hg (01/22/21 11:42 AM) 137/71mm Hg (01/22/21 9:06 AM) Respiratory Rate [16-30 br/min] 18 br/mi n (01/22/21 11:42 AM) Temperature [96.8-100.4 DegF] 99.7 DegF (01/22/21 11:42 AM) 99.5 DegF (01/22/21 9:06 AM) Mode of Delivery (Oxygen) Room air (01/22/21 11:42 AM) Room air (01/22/21 9:06 AM) Blood pressure sites Arm, left (01/22/21 11:42 AM) Temperature Route Oral (01/22/21 11:42 AM) Oral (01/22/21 9:06 AM) Social History Social History Type Response Smoking Status Former smoker entered on: 11/03/17 Sex
--- OUTSIDE RECORDS SUMMARY | 2023-02-27 17:28 | XMS_ITS | Continuity of Care Document ---
Author Name Unknown Organization [facility] ter Address [address] [place] [address]- Care Team Providers Care Construction Manager Name Role Phone Not on Staff, PCP Primary Care Physician Unavail able [facility]s): 07/16/19 - 07/16/[address] [address]- [facility] Encounter Diagnosis (Final) - 07/16/19 Discharge Disposition: A-D/C Home Attending Physician: Radha Canada MD Admitting Physician: Radha Canada MD Referring Physician: Not on Staff, Referring [...] Range]: 1 2 3 Height 168 cm (07/16/19 4:34 PM) 168 cm (07/16/19 1:07 PM) 168 cm (07/16/19 12:59 PM) Weight 78.5 kg (07/16/19 4:34 PM) 78.5 kg (07/16/19 1:07 PM) 78.5 kg (07/16/19 12:59 PM) Oxygen Saturation [94-100 %] 100 % (07/16/19 4:34 PM) 100 % (07/16/19 12:59 PM) 100 % (07/16/19 12:57 PM) Pulse Rate [55-90 bpm] 85 bpm (07/16/19 4:34 PM) 80 bpm (07/16/19 12:59 PM) 111 bpm *H* (07/16/19 12:57 PM) Body Mass Index [18.5-24.99] 27.81 *H* (07/16/19 4:34 PM) 27.81 *H* (07/16/19 12:59 PM) Blood Pressure [90-138/55-84 mm Hg] 124/77mm Hg (07/16/19 4:34 PM) 130/76mm Hg (07/16/19 12:59 PM) Respiratory Rate [16-30 br/min] 16 br/min (07/16/19 4:34 PM) 16 br/min (07/16/19 12:59 PM) Temperature [96.8-100.4 DegF] 98.3 DegF (07/16/19 12:59 PM) Mode of Delivery (Oxygen) Room air (07/16/19 4:34 PM) Room air (07/16/19 12:59 PM) Room air (07/16/19 12:57 PM) Blood pressure sites Arm, right (07/16/19 12:59 PM) Temperature Route Oral (07/16/19 12:59 PM) Dry Weight 78.5 kg (07/16/19 4:34 PM) 78.5 kg (07/16/19 1:07 PM) 78.5 kg (07/16/19 12:59 PM) Weight Obtained Via Standing scale (07/16/19 12:59 PM) Dry Weight Obtained Via Standing scale (07/16/19 12:59 PM) Social History Social History Type Response Smoking Status Former smoker entered on: 11/03/17 Sex
--- OUTSIDE RECORDS SUMMARY | 2023-02-27 17:28 | XMS_ITS | Continuity of Care Document ---
Author Name Unknown Organization [facility] ter Address [address] [place] [address]- Care Team Providers Care Parallel Computing Software Engineer Name Role Phone Not on Staff, PCP Primary Care Physician Unavail able [facility]): [facility] - 05/12/[address] [address]- Discharge Disposition: A-D/C AMA Attending Physician: Solo Marquez MD Admitting Physician: Sheri SAEED, Sarah Dial Referring Physician: Not on Staff, Referring MD [...] 11/07/19 Not Given Patient Refuses 1Location History: [facility] 2Admin Note: VIS GIVEN 03/12/06 3Admin Note: VIS GIVEN 08/19/05 Medications acetaminophen 325 mg oral tablet 650 mg, By Mouth, Every 4 hours, not to exceed 4000 mg/day, # 50 tablet, Refills 1, Tot. Refills 1,Maintenance, 01/26/20 14:36:00 EST, Route to Pharmacy Electronically, [facility]/pharmacy #[id number], Partial fill upon patient request if the prescription is for... Start Date: 01/26/20 Status: Ordered docusate sodium 100 mg oral tablet = 100 mg, By Mouth, 2 times a day, # 100 tablet, 1 Refills, Maintenance, 01/26/20 14:36:00 EST, Tablet, [facility]/pharmacy #[id number], Partial fill upon patient request if the prescription is for a schedule II opioid drug., 167.6, cm, 01/26/20 9:00:00 EST, Heigh... Start Date: 01/26/20 Status: Ordered famotidine 20 mg oral tablet 1, tablet, By Mouth, Daily at bedtime, # 30 tablet, Refills 0, Tot. Refills 0, Maintenance, 02/10/20 8:02:00 EST, Route to Pharmacy Electronically, [facility] STORE [id number], 167.6, cm, 01/26/20 9:00:00 EST, Height, 77.2, [...] Dry Weight Start Date: 12/28/19 Status: Ordered MorPHINE Inj 4 mg, Injection, IV Push Slowly, Every 10 minutes for 3 doses/times, Hold for: RR<12 and SBP<100, PRN for Pain , Moderate, and SBP greater than 100, Routine, 05/12/21 8:47:00 EDT, Stop date Limited # of times Start Date: 05/12/21 Stop Date: 05/12/21 Status: Completed oxyCODONE 5 mg oral tablet 5 mg, [...] cm, 12/20/19 22:39:00 EST, Height, 75, kg, /... Start Date: 12/22/19 Status: Ordered Problem List [...] 3 Oxygen Saturation [94-100 %] 100 % (05/12/21 12:40 PM) 100 % (05/12/21 8:11 AM) Pulse Rate [55-90 bpm] 76 bpm (05/12/21 12:40 PM) 64 bpm (05/12/21 8:11 AM) Blood Pressure [90-138/55-84 mm Hg] 132/73mm Hg (05/12/21 12:40 PM) 122/86mm Hg (05/12/21 8:11 AM) Respiratory Rate [16-30 br/min] 18 br/min (05/12/21 12:40 PM) 18 br/min (05/12/21 10:01 AM) 18 br/min (05/12/21 9:06 AM) Temperature [96.8-100.4 DegF] 97.4 DegF (05/12/21 8:11 AM) Mode of Delivery (Oxygen) Room air (05/12/21 12:40 PM) Room air (05/12/21 8:11 AM) Temperature Route Oral (05/12/21 8:11 AM) Social History Social History Type Response Smoking Status Former smoker entered on: 11/03/17 Sex
--- OUTSIDE RECORDS SUMMARY | 2023-02-27 17:28 | XMS_ITS | Continuity of Care Document ---
Demographics Address [address] [facility] [place] [address] Mobile Preferred Language so Marital Status Single Religion Affiliation None Race White Ethnic Group or Author Name Unknown Organization [facility] Address [address] [place] [address]- Care Team Providers Care Control Room Agent Name Role Phone Irina FIGUEROA, Elke Primary Care Physician [facility]): [facility] - 03/12/19 [facility] [address] [place] [address]- [facility] Attending Physician: Chacho Gallegos Admitting Physician: AdmChacho butcher Referring Physician: AdmtrChahco Allergies, Adverse Reactions, Alerts Substance Reaction Severity [...] EDT, Tablet Start Date: 08/22/18 Status: Ordered Problem List Condition Effective Dates [...]
--- OUTSIDE RECORDS SUMMARY | 2023-02-27 17:28 | XMS_ITS | Continuity of Care Document ---
Author Name Unknown Organization [facility] ter Address [address] [place] [phone]- Care Team Providers Care Software Security Architect Name Role Phone Not on Staff, PCP Primary Care Physician Unavail able [facility] Date(s): 08/05/21 - 08/07/[address] [address] Discharge Disposition: A-D/C Home Attending Physician: Solo Marquez MD Admitting Physician: Andrew Li DO Referring Physician: Not on Staff, Referring [...] Note: VIS GIVEN 08/19/05 Medications MorPHINE Inj 2 mg, Injection, IV Push Slowly, Every 4 hours, PRN for Pain , Severe, Routine, 08/05/21 13:38:00 EDT Start Date: 08/05/21 Stop Date: 08/07/21 Status: Discontinued Protonix 20 mg oral delayed [...] 0 Refills, Maintenance, 08/07/21 9:39:00 EDT, Tablet, [facility], Partial fill upon patient [...] oldest [Reference Range]: 1 2 3 Height 170 cm (08/07/21 6:50 AM) 170 cm (08/07/21 2:44 AM) 170 cm (08/06/21 11:01 PM) Weight 81.8 kg (08/05/21 1:02 PM) 79.5 kg (08/05/21 8:03 AM) Oxygen Saturation [94-100 %] 100 % (08/07/21 6:50 AM) 100 % (08/07/21 2:44 AM) 99 % (08/06/21 11:01 PM) Pulse Rate [55-90 bpm] 50 bpm *L* (08/07/21 6:50 AM) 67 bpm (08/07/21 2:44 AM) 57 bpm (08/06/21 11:01 PM) Body Mass Index [18.5-24.99] 28.3 *H* (08/05/21 1:02 PM) Blood Pressure [90-138/55-84 mm Hg] 136/57mm Hg (08/07/21 6:50 AM) 137/74mm Hg (08/07/21 2:44 AM) 151/78mm Hg *H* (08/06/21 11:01 PM) Respiratory Rate [16-30 br/min] 18 br/min (08/07/21 9:00 AM) 18 br/min (08/07/21 8:48 AM) 18 br/min (08/07/21 6:50 AM) Temperature [96.8-100.4 DegF] 97.8 DegF (08/07/21 6:50 AM) 97.8 DegF (08/07/21 2:44 AM) 98.1 DegF (08/06/21 8:00 PM) Mode of Delivery (Oxygen) Room air (08/07/21 6:50 AM) Room air (08/07/21 2:44 AM) Room air (08/06/21 11:01 PM) Blood pressure sites Arm, right (08/07/21 6:50 AM) Arm, right (08/07/21 2:44 AM) Arm, right (08/06/21 11:01 PM) Temperature Route Oral (08/07/21 6:50 AM) Oral (08/07/21 2:44 AM) Oral (08/06/21 8:00 PM) Dry Weight 81.8 kg (08/05/21 1:02 PM) 79.5 kg (08/05/21 8:03 AM) Social History Social History Type Response Smoking Status Former smoker entered on: 11/03/17 Sex
--- OUTSIDE RECORDS SUMMARY | 2023-02-27 17:28 | XMS_ITS | Continuity of Care Document ---
Author Name Unknown Organization [facility] Address [address] [place] [id number]- Care Team Providers Care Check Out Clerk Name Role Phone Not on Staff, PCP Primary Care Physician Unavail able [facility] Date[facility]s): 02/28/20 - 03/29/20 [facility] [address] [place] [address] Attending Physician: Chacho Gallegos Admitting Physician: Admtr, Chacho Referring Physician: Admtr, Ar8 Allergies, Adverse Reactions, Alerts Substance Reaction Severity [...] 01/26/20 14:36:00 EST, Route to Pharmacy Electronically, [facility]/pharmacy #[id number], Partial fill upon patient request if the prescription is for... Start Date: 01/26/20 Status: Ordered docusate sodium 100 mg oral tablet = 100 mg, By Mouth, 2 times a day, # 100 tablet, 1 Refills, Maintenance, 01/26/20 14:36:00 EST, Tablet, [facility]/pharmacy #1972, Partial fill upon patient request if the prescription is for a schedule II opioid drug., 167.6, cm, 01/26/20 9:00:00 EST, Heigh... Start Date: 01/26/20 Status: Ordered famotidine 20 mg oral tablet 1, tablet, By Mouth, Daily at bedtime, # 30 tablet, Refills 0, Tot. Refills 0, Maintenance, 02/10/20 8:02:00 EST, Route to Pharmacy Electronically, [facility] STORE [id number], 167.6, cm, 01/26/20 9:00:00 EST, Height, 77.2, kg, 01/23/20 10:01:00 EST, Dry Weight Start Date: 02/10/20 Status: Ordered ferrous sulfate 325 mg oral tablet 1 tablet = 325 mg, By Mouth, 2 times a day, # 60 tablet, 1 Refills, Maintenance, 12/28/19 16:12:00 EST, [facility]/pharmacy #[id number], Partial fill upon patient request, 168, [...]
--- OUTSIDE RECORDS SUMMARY | 2023-02-27 17:28 | XMS_ITS | Continuity of Care Document ---
Author Name Unknown [facility] Address [address] [place] [address]- Care Team Providers Care Varnisher Name Role Phone Not on Staff, PCP Primary Care Physician Unavail able Encounter [facility] Date(s): 03/27/20 - 03/28/[address] [address]- Discharge Disposition: A-D/C Home Attending Physician: Paula Riggs MD Admitting Physician: Paula Riggs MD Referring Physician: Not on Staff, Referring [...] 11/07/19 Not Given Patient Refuses 1Location History: [facility] 2Admin Note: VIS GIVEN 03/12/06 3Admin Note: VIS GIVEN 08/19/05 Medications acetaminophen 325 mg oral tablet 650 mg, By Mouth, Every 4 hours, not to exceed 4000 mg/day, # 50 tablet, Refills 1, Tot. Refills 1,Maintenance, 01/26/20 14:36:00 EST, Route to Pharmacy Electronically, [facility]/pharmacy #[id number], Partial fill upon patient request if the prescription is for... Start Date: 01/26/20 Status: Ordered docusate sodium 100 mg oral tablet = 100 mg, By Mouth, 2 times a day, # 100 tablet, 1 Refills, Maintenance, 01/26/20 14:36:00 EST, Tablet, [facility]/pharmacy #1972, Partial fill upon patient request if the prescription is for a schedule II opioid drug., 167.6, cm, 01/26/20 9:00:00 EST, Heigh... Start Date: 01/26/20 Status: Ordered famotidine 20 mg oral tablet 1, tablet, By Mouth, Daily at bedtime, # 30 tablet, Refills 0, Tot. Refills 0, Maintenance, 02/10/20 8:02:00 EST, Route to Pharmacy Electronically, [facility] STORE [id number], 167.6, cm, 01/26/20 9:00:00 EST, Height, 77.2, [...] Exam Date Time Procedure Performing Provider Status 03/27/20 11:16 PM Chest 2 Views Frontal and Lat Martínez Cosme; Auth (Verified) Notes: (Chest 2 Views Frontal and Lat) Reason For Exam: Shortness of Breath, Fever;Other: RESULT: Chest 2 Views Frontal and Lat Chest 2 Views Frontal and Lat Hx of Present Illness: Chest pain x 1 day off and on, sts has had this in past when Pot. is low. ptsts post C section 2 months ago. Denies SOB or injury; Reason: Other:; Shortness of Breath, Fever; Clinical Question(s): Pneumonia COMPARISON: 03/26/2020 FINDINGS: LINES AND TUBES: None. LUNGS AND PLEURA: Clear lungs. Normal pulmonary vascularity. No pleural effusion. No pneumothorax. HEART, MEDIASTINUM AND ORION: Heart is normal in size. Normal upper mediastinal and hilar contour. BONES AND SOFT TISSUES: No acute abnormality. IMPRESSION: No acute abnormality. WSN: [id number] Ordering Physician: Paula Riggs Dictated By: Gabriel Barron DO Dictated Date/Time: 03/27/20 11:22 p Reviewed By: Gabriel Barron DO Signed By: Gabriel Barron DO Signed Date/Time: 03/27/20 11:22 pm Transcribed By: AZUCENA Transcribed Date/Time: 03/27/20 11:21 pm Vital Signs Most recent to oldest [Reference Range]: 1 2 3 Height 167 cm (03/28/20 12:00 AM) 167 cm (03/27/20 11:11 PM) 167 cm (03/27/20 8:59 PM) Weight 79.2 kg (03/28/20 12:00 AM) 79.2 kg (03/27/20 8:59 PM) Oxygen Saturation [94-100 %] 99 % (03/28/20 12:00 AM) 100 % (03/27/20 11:11 PM) 100 % (03/27/20 8:59 PM) Pulse Rate [55-90 bpm] 84 bpm (03/28/20 12:00 AM) 72 bpm (03/27/20 11:11 PM) 99 bpm *H* (03/27/20 8:59 PM) Body Mass Index [18.5-24.99] 28.4 *H* (03/28/20 12:00 AM) Blood Pressure [90-138/55-84 mm Hg] 118/74mm Hg (03/28/20 12:00 AM) 126/81mm Hg (03/27/20 11:11 PM) 138/84mm Hg (03/27/20 8:59 PM) Respiratory Rate [16-30 br/min] 15 br/min *L* (03/28/20 12:00 AM) 16 br/min (03/27/20 11:11 PM) 16 br/min (03/27/20 8:59 PM) Temperature [96.8-100.4 DegF] 98.6 DegF (03/27/20 8:59 PM) Mode of Delivery (Oxygen) Room air (03/28/20 12:00 AM) Room air (03/27/20 11:11 PM) Room air (03/27/20 8:59 PM) Blood pressure sites Arm, left (03/27/20 11:11 PM) Temperature Route Oral (03/27/20 8:59 PM) Dry Weight 79.2 kg (03/28/20 12:00 AM) 79.2 kg (03/27/20 8:59 PM) Dry Weight Obtained Via Standing scale (03/27/20 8:59 PM) Social History Social History Type Response Smoking Status Former smoker entered on: 11/03/17 Sex
--- OUTSIDE RECORDS SUMMARY | 2023-02-27 17:28 | XMS_ITS | Continuity of Care Document ---
Author Name Unknown Organization [facility] Address [address] [place] [address]- Care Team Providers Care Retail Cosmetics Sales Counter Manager Name Role Phone Not on Staff, PCP Primary Care Physician Unavail able [facility] Date(s): 01/08/20 - 02/07/20 [facility] [address] [place] [id number] Allergies, Adverse Reactions, Alerts Substance Reaction Severity [...] 14:36:00 EST, Route to Pharmacy Electronically, [facility]/pharmacy #1972, Partial fill upon patient request if the prescription is for... Start Date: 01/26/20 Status: Ordered docusate sodium 100 mg oral tablet = 100 mg, By Mouth, 2 times a day, # 100 tablet, 1 Refills, Maintenance, 01/26/20 14:36:00 EST, Tablet, [facility]/pharmacy #1972, Partial fill upon patient request if the prescription is for a schedule II opioid drug., 167.6, cm, 01/26/20 9:00:00 EST, Heigh... Start Date: 01/26/20 Status: Ordered famotidine 20 mg oral tablet See Instructions, TAKE 1 TABLET BY MOUTH EVERYDAY AT BEDTIME, # 30 tablet, Refills 0, Tot. Refills 0, 01/18/20 8:57:00 EST, Instructions Replace Required Details, Route to Pharmacy Electronically, [facility]/pharmacy #1972, 165, cm, 01/18/20 8:51:00 EST, Hei... [...] 01/26/20 14:35:00 EST, Route to Pharmacy Electronically, [facility]/pharmacy #1972, Partial fill upon patient request if the prescript... Start Date: 01/26/20 Status: Ordered Multivitamins By Mouth, Daily, 0 Refills, Maintenance, 09/02/19 8:12:00 EDT Start Date: 09/02/19 Status: Ordered simethicone 80 mg oral tablet, chewable 80 mg, Chew, 3 times a day, PRN, # 90 tablet, Refills 1, Tot. Refills 1, Maintenance, Gas, 01/25/2014:35:00 EST, Route to Pharmacy Electronically, [facility]/pharmacy #1972, Partial fill upon patient request if the prescription is for a schedule II opioid d... Start Date: 01/26/20 Status: Ordered Zofran 4 mg oral tablet 1 tablet = 4 mg, By Mouth, Every 8 hours, PRN as needed for nausea/vomiting, # 10 tablet, 0 Refills, Maintenance, 12/22/19 14:18:00 EST, Tablet, [facility]/pharmacy #1972, Partial fill upon patient request,168, cm, [...]
--- OUTSIDE RECORDS SUMMARY | 2023-02-27 17:28 | XMS_ITS | Continuity of Care Document ---
Author Name Unknown Organization [facility] ter Address [address] [place] [address]- Care Team Providers Care Nuclear Weapons Specialist Name Role Phone Not on Staff, PCP Primary Care Physician Unavail able [facility] Date[facility]s): 05/25/22 - 05/25/[address] [address]- Discharge Disposition: A-D/C Walkout Attending Physician: Not [...] GIVEN 03/12/06 3Admin Note: VIS GIVEN 08/19/05 Problem List Condition Confirmation Course Effective Dates [...] Range]: 1 2 3 Height 168 cm (05/25/22 2:45 PM) Weight 79.4 kg (05/25/22 2:45 PM) Oxygen Saturation [94-100 %] 100 % (05/25/22 6:18 PM) 100 % (05/25/22 4:07 PM) 100 % (05/25/22 1:36 PM) Pulse Rate [55-90 bpm] 99 bpm *H* (05/25/22 6:18 PM) 96 bpm *H* (05/25/22 4:07 PM) 94 bpm *H* (05/25/22 1:36 PM) Blood Pressure [90-138/55-84 mm Hg] 135/80mm Hg (05/25/22 6:18 PM) 115/90mm Hg (05/25/22 4:07 PM) 116/90mm Hg (05/25/22 1:36 PM) Respiratory Rate [16-30 br/min] 18 br/min (05/25/22 4:07 PM) 19 br/min (05/25/22 1:36 PM) Temperature [96.8-100.4 DegF] 98.8 DegF (05/25/22 6:18 PM) 97.9 DegF (05/25/22 4:07 PM) 97.9 DegF (05/25/22 1:36 PM) Mode of Delivery (Oxygen) Room air (05/25/22 6:18 PM) Room air (05/25/22 4:07 PM) Room air (05/25/22 1:36 PM) Blood pressure sites Arm, right (05/25/22 6:18 PM) Arm, right (05/25/22 4:07 PM) Arm, left (05/25/22 1:36 PM) Temperature Route Oral (05/25/22 6:18 PM) Oral (05/25/22 4:07 PM) Oral (05/25/22 1:36 PM) Dry Weight 79.4 kg (05/25/22 2:45 PM) Social History Social History Type Response Smoking Status Former smoker entered on: 11/03/17 Sex EKG study * Event Display: ECG 12-Lead Authored Date: Please click on pdf link to open report * Event Display: ECG 12-Lead Authored Date: Ventricular Rate: 81 BPM Atrial Rate: 81 BPM P-R Interval: 122 ms QRS Duration: 82 ms Q-T Interval: 398 ms QTC Calculation(Bazett): 462 ms P [place]: 39 degrees R [place]: 27 degrees T [place]: 51 degrees Normal sinus rhythm Normal ECG When compared with ECG of 04-MAY-2022 09:47, QT has shortened Confirmed by QUINN IRVING MD ([id number]) on 05/25/2022 6:16:42 PM Chandler: QUINN IRVING MD Patient Care team information Care Team Personnel Name: Amber Ortiz RN Position: [facility] PCO RN Member Role: Primary Care Nurse Name: Ashley Heart RN Position: [facility] AMB Nurse Member Role: Primary Care Nurse Name: Ashly Olivares RN Position: [facility] RN Member Role: Primary Care Nurse Name: Chayo Michele RN Position: [facility] OB RN Member Role: Primary Care Nurse Name: Amando Clark RN Position: [facility] RN Member Role: Primary Care Nurse Name: Not on Staff, PCP Position: [facility] Physician (General Medicine) Member Role: PCP Name: Juan A Marino RN Position: [facility] RN Member Role: Primary Care Nurse Name: Kristine Donaldson RN Position: S RN Member Role: Primary Care Nurse Name: Humza Melton Position: S RN Member Role: Primary Care Nurse Name: Loli Nuñez LPN Position: S RN Member Role: Primary Care Nurse Care Team Related Persons Name: ROXYPRISCILLAE Address: [place] [address] Name: CONCHITA JONES Name: ANIVAL MIGUEL Address: home [address] [place] [address] Name: YANNICK PICKENS Address: [address] Address: [address] [place] [address] Name: DARRIAN PICKENS Address: home [address] [place] [address] Name: SIMÓN PICKENS Address: [id number] Address: home [address] [address]
--- OUTSIDE RECORDS SUMMARY | 2023-02-27 17:29 | XMS_ITS | Continuity of Care Document ---
Author Name Unknown Organization [facility] ter Address [address] [place] [address]- Care Team Providers Care Spring Assembler Supervisor Name Role Phone Not on Staff, PCP Primary Care Physician Unavail able [facility]): 03[facility]20 - 03/09/[address] [address]- Discharge Disposition: A-D/C Home Attending Physician: Liz Posey MD Admitting Physician: Liz Posey MD Referring Physician: Not on Staff, Referring [...] 01/26/20 14:36:00 EST, Route to Pharmacy Electronically, [facility]/pharmacy #[id number], Partial fill upon patient request if the prescription is for... Start Date: 01/26/20 Status: Ordered docusate sodium 100 mg oral tablet = 100 mg, By Mouth, 2 times a day, # 100 tablet, 1 Refills, Maintenance, 01/26/20 14:36:00 EST, Tablet, [facility]/pharmacy #1972, Partial fill upon patient request if the prescription is for a schedule II opioid drug., 167.6, cm, 01/26/20 9:00:00 EST, Heigh... Start Date: 01/26/20 Status: Ordered famotidine 20 mg oral tablet 1, tablet, By Mouth, Daily at bedtime, # 30 tablet, Refills 0, Tot. Refills 0, Maintenance, 02/10/20 8:02:00 EST, Route to Pharmacy Electronically, [facility] ST[facility] [id number], 167.6, cm, 01/26/20 9:00:00 EST, Height, 77.2, [...] Exam Date Time Procedure Performing Provider Status 03/09/20 4:02 PM Foot Min 3 Views Right RyAdrienne ruby shon; Auth (Verified) Notes: (Foot Min 3 Views Right) Reason For Exam: Pain RESULT: Foot Min 3 Views Right Foot Min 3 Views Right, 3 views Hx of Present Illness: right foot pain; Reason: Pain; Clinical Question(s): Fracture COMPARISON: Multiple prior ankle radiographs, most recent dated 11/17/2009 FINDINGS: No fractures or bone lesions. No arthritic changes. There is a focal linear calcification noted along the dorsal aspect of the midfoot, seen only on the lateral view, at the level of the base of the metatarsals, which was also seen on prior study from 2007. Normal soft tissues. IMPRESSION: No radiographic evidence of acute fracture or dislocation. WSN: [id number] Ordering Physician: Liz Posey Dictated By: Ann Davis MD Dictated Date/Time: 03/09/20 4:10 pm Reviewed By: Ann Davis MD Signed By: Ann Davis MD Signed Date/Time: 03/09/20 4:10 pm Transcribed By: AZUCENA Transcribed Date/Time: 03/09/20 4:07 pm Vital Signs Most recent to oldest [Reference Range]: 1 2 3 Weight 75.8 kg (03/09/20 2:24 PM) Oxygen Saturation [94-100 %] 100 % (03/09/20 4:40 PM) 99 % (03/09/20 2:24 PM) 99 % (03/09/20 2:14 PM) Pulse Rate [55-90 bpm] 79 bpm (03/09/20 4:40 PM) 90 bpm (03/09/20 2:24 PM) 97 bpm *H* (03/09/20 2:14 PM) Blood Pressure [90-138/55-84 mm Hg] 115/64mm Hg (03/09/20 4:40 PM) 137/82mm Hg (03/09/20 2:24 PM) Respiratory Rate [16-30 br/min] 15 br/min *L* (03/09/20 4:40 PM) 14 br/min *L* (03/09/20 2:24 PM) Temperature [96.8-100.4 DegF] 98.3 DegF (03/09/20 2:24 PM) Mode of Delivery (Oxygen) Room air (03/09/20 4:40 PM) Room air (03/09/20 2:24 PM) Room air (03/09/20 2:14 PM) Blood pressure sites Arm, right (03/09/20 4:40 PM) Arm, right (03/09/20 2:24 PM) Temperature Route Oral (03/09/20 2:24 PM) Dry Weight 75.8 kg (03/09/20 2:24 PM) Weight Obtained Via Standing scale (03/09/20 2:24 PM) Dry Weight Obtained Via Standing scale (03/09/20 2:24 PM) Social History Social History Type Response Smoking Status Former smoker entered on: 11/03/17 Sex
--- OUTSIDE RECORDS SUMMARY | 2023-02-27 17:29 | XMS_ITS | Continuity of Care Document ---
Author Name Unknown Organization [facility] Address [address] [place] [address]- Care Team Providers Care Data Security Administrator Name Role Phone Not on Staff, PCP Primary Care Physician Unavail able [facility]): 11/[facility]19 - 12/06/19 [facility] [address] [place] [address]- [facility] Allergies, Adverse Reactions, Alerts Substance Reaction Severity [...]
--- OUTSIDE RECORDS SUMMARY | 2023-02-27 17:29 | XMS_ITS | Continuity of Care Document ---
Author Name Unknown Organization [facility] ter Address [address] [place] [address]- Care Team Providers Care Cutter Barrel Drum Name Role Phone Not on Staff, PCP Primary Care Physician Unavail able [facility]counter [facility] Date[facility]s): 07/[facility]/22 - 07/23/[address] [address]- Discharge Disposition: A-D/C Home Attending Physician: Norma Rojas DO Admitting Physician: Norma Rojas DO Referring Physician: Not on Staff, Referring [...] Range]: 1 2 3 Height 168 cm (07/23/22 12:48 PM) 168 cm (07/23/22 10:20 AM) 168 cm (07/22/22 11:40 PM) Weight 78 kg (07/23/22 12:48 PM) 78 kg (07/23/22 10:20 AM) 78 kg (07/22/22 11:40 PM) Oxygen Saturation [94-100 %] 98 % (07/23/22 3:54 PM) 98 % (07/23/22 12:48 PM) 98 % (07/23/22 10:20 AM) Pulse Rate [55-90 bpm] 70 bpm (07/23/22 3:54 PM) 67 bpm (07/23/22 12:48 PM) 76 bpm (07/23/22 10:20 AM) Body Mass Index [18.5-24.99 kg/m2] 27.64 kg/m2 *H* (07/23/22 12:48 PM) 27.64 kg/m2 *H* (07/23/22 10:20 AM) 27.64 kg/m2 *H* (07/22/22 11:40 PM) Blood Pressure [90-138/55-84 mm Hg] 134/70mm Hg (07/23/22 3:54 PM) 151/84mm Hg *H* (07/23/22 12:48 PM) 125/66mm Hg (07/23/22 10:20 AM) Respiratory Rate [16-30 br/min] 18 br/min (07/23/22 3:54 PM) 16 br/min (07/23/22 12:48 PM) 19 br/min (07/23/22 10:20 AM) Temperature [96.8-100.4 DegF] 98.0 DegF (07/23/22 12:48 PM) 98.5 DegF (07/23/22 6:47 AM) 97.7 DegF (07/23/22 2:56 AM) Mode of Delivery (Oxygen) Room air (07/23/22 10:20 AM) Room air (07/23/22 6:47 AM) Room air (07/23/22 2:56 AM) Blood pressure sites Arm, left (07/23/22 3:54 PM) Arm, left (07/23/22 10:20 AM) Arm, left (07/23/22 6:47 AM) Temperature Route Oral (07/23/22 12:48 PM) Oral (07/23/22 6:47 AM) Oral (07/23/22 2:56 AM) Dry Weight 78 kg (07/23/22 12:48 PM) 78 kg (07/23/22 10:20 AM) 78 kg (07/22/22 11:40 PM) Weight Obtained Via Patient/family state d (07/22/22 11:40 PM) Dry Weight Obtained Via Patient/family s tated (07/22/22 11:40 PM) Social History Social History Type Response Smoking Status Former smoker entered on: 11/03/17 Sex EKG study * Event Display: ECG 12-Lead Authored Date: Please click on pdf link to open report * Event Display: ECG 12-Lead Authored Date: Ventricular Rate: 62 BPM Atrial Rate: 62 BPM P-R Interval: 120 ms QRS Duration: 90 ms Q-T Interval: 448 ms QTC Calculation(Bazett): 454 ms P [place]: 43 degrees R [place]: 33 degrees T [place]: 48 degrees Sinus rhythm with marked sinus arrhythmia Otherwise normal ECG When compared with ECG of 25-MAY-2022 16:44, No significant change was found Confirmed by JANET GUERRERO MD ([id number]) on 07/23/2022 12:51:58 PM Frederick: JANET GUERRERO MD Note * Bryanna Cross: PERFORM, SIGN, VERIFY Event Display: Patient Education Handout Authored Date: [id number] * Bryanna Cross: PERFORM Event Display: Patient Education Leaflets Authored Date: [id number] Hypokalemia ?? [id number] Hypokalemia Hypokalemia means a low level of potassium in the blood. This most often occurs in people who take water pills (diuretics). It can also result from severe vomiting or diarrhea.??You may also have it if you??take laxatives for long periods of time. It sometimes happens if you have low magnesium (hypo magnesemia). If you have this,??your??healthcare provider will treat the low??magnesium first. A mild case of hypokalemia often causes no symptoms. It is only found with blood testing. More severe potassium loss causes: ??? Overall weakness ??? Muscle or stomach cramps ??? Rapid or irregular heartbeats (heart palpitations) ??? Low blood pressure ??? Muscle weakness ??? Short-term paralysis in some people Home care ??? Take any potassium supplements as prescribed. ??? Eat foods rich in potassium. High amounts of potassium are found in baked potatoes, baked sweet potatoes, spinach, cantaloupe, cod, halibut, salmon, and scallops. White, red, or maldonado beans are also very good sources. So are avocados, orange juice, bananas, and tomato juice. ??? If you take certain types of diuretics, you will also need to take potassium supplements. Talk with your healthcare provider. ?? Follow-up care Follow up with your??healthcare provider??for a repeat blood test within the next week, or as advised by our staff. ?? When to get medical advice Call your healthcare provider right away if you have: ??? Increased weakness,??fatigue, or muscle cramps ??? Dizziness ?? Call 911 Call 911 if you have: ??? Irregular heartbeat, extra beats, or very fast heart rate ??? Loss of consciousness ?? Last Reviewed Date: 2022 ?? [id number] [employer]. All rights reserved. This information is not intended as a substitute for professional medical care. Always follow your healthcare professional's instructions. ?? Patient Care team information Care Team Personnel Name: Amber Ortiz RN Position: [facility] AMB Nurse Member Role: Primary Care Nurse Name: Ashley Heart RN Position: [facility] AMB Nurse Member Role: Primary Care Nurse Name: Ashly Olivares RN Position: [facility] RN Member Role: Primary Care Nurse Name: Chayo Michele RN Position: [facility] OB RN Member Role: Primary Care Nurse Name: Amando Clark RN Position: [facility] RN Member Role: Primary Care Nurse Name: Not on Staff, PCP Position: [facility] Physician (General Medicine) Member Role: PCP Name: Juan A Marino RN Position: [facility] RN Member Role: Primary Care Nurse Name: Kristine Donaldson RN Position: [facility] RN Member Role: Primary Care Nurse Name: Humza Melton Position: [facility] RN Member Role: Primary Care Nurse Name: Loli Nuñez LPN Position: [facility] RN Member Role: Primary Care Nurse Name: Mercy Spence Position: [facility] ED TA [facility] Name: Erik Petersen RN Position: [facility] ED RN W/OE and Tasks Name: Norma Rojas DO Position: [facility] ED Medicine MD Member Role: Admitting Physician Address: Address: [address] [place] [address] Name: Bryanna Cross Position: [facility] Associate Professional Member Role: ED Physician Business Developer Address: Address: [address] [place] [id number] Care Team Related Persons Name: KYLE RAMSEY Address: [place] [address] Name: CONCHITA JONES Name: ANIVAL MIGUEL Address: home [address] [place] [address] Name: YANNICK PICKENS Address: [id number] Address: [address] [place] [address] Name: DARRIAN PICKENS Address: home [address] [place] [address] Name: PICKENSSIMÓN LÓPEZ Address: [address] Address: home [address] [address]
--- OUTSIDE RECORDS SUMMARY | 2023-02-27 17:29 | XMS_ITS | Continuity of Care Document ---
Author Name Unknown Organization [facility] Address [address] [place] [address]- Care Team Providers Care Policyholder Information Clerk Name Role Phone Not on Staff, PCP Primary Care Physician Unavail able [facility]): 11[facility]19 - 12/07/19 [facility] [address] [place] [address]- [facility] Attending Physician: Vernell Casillas DO Admitting Physician: [...]
--- OUTSIDE RECORDS SUMMARY | 2023-02-27 17:29 | XMS_ITS | Continuity of Care Document ---
Author Name Unknown Organization [facility] Address [address] [place] [address]- Care Team Providers Care Fingerprint Clerk Name Role Phone Not on Staff, PCP Primary Care Physician Unavail able [facility]counter [facility] Date(s): 12/29/19 - 01/28/20 [facility] [address] [place] [id number] Allergies, Adverse Reactions, Alerts Substance [...] 14:36:00 EST, Route to Pharmacy Electronically, [facility]/pharmacy #[id number], Partial fill upon patient request if the prescription is for... Start Date: 01/26/20 Status: Ordered docusate sodium 100 mg oral tablet = 100 mg, By Mouth, 2 times a day, # 100 tablet, 1 Refills, Maintenance, 01/26/20 14:36:00 EST, Tablet, [facility]/pharmacy #[id number], Partial fill upon patient request if the prescription is for a schedule II opioid drug., 167.6, cm, 01/26/20 9:00:00 EST, Heigh... Start Date: 01/26/20 Status: Ordered famotidine 20 mg oral tablet See Instructions, TAKE 1 TABLET BY MOUTH EVERYDAY AT BEDTIME, # 30 tablet, Refills 0, Tot. Refills 0, 01/18/20 8:57:00 EST, Instructions Replace Required Details, Route to Pharmacy Electronically, [facility]/pharmacy #[id number], 165, cm, 01/18/20 8:51:00 EST, Hei... [...] 01/26/20 14:35:00 EST, Route to Pharmacy Electronically, [facility]/pharmacy #[id number], Partial fill upon patient request if the prescript... Start Date: 01/26/20 Status: Ordered Multivitamins By Mouth, Daily, 0 Refills, Maintenance, 09/02/19 8:12:00 EDT Start Date: 09/02/19 Status: Ordered simethicone 80 mg oral tablet, chewable 80 mg, Chew, 3 times a day, PRN, # 90 tablet, Refills 1, Tot. Refills 1, Maintenance, Gas, 01/25/2014:35:00 EST, Route to Pharmacy Electronically, [facility]/pharmacy #[id number], Partial fill upon patient request if the prescription is for a schedule II opioid d... Start Date: 01/26/20 Status: Ordered Zofran 4 mg oral tablet 1 tablet = 4 mg, By Mouth, Every 8 hours, PRN as needed for nausea/vomiting, # 10 tablet, 0 Refills, Maintenance, 12/22/19 14:18:00 EST, Tablet, [facility]/pharmacy #[id number], Partial fill upon patient request,168, cm, [...]
--- OUTSIDE RECORDS SUMMARY | 2023-02-27 17:29 | XMS_ITS | Continuity of Care Document ---
Author Name Unknown Organization [facility] ter Address [address] [place] [address]- Care Team Providers Care Oyster Bed Worker Name Role Phone Not on Staff, PCP Primary Care Physician Unavail able [facility]s): 11/20/19 - 11/27/[address] [address]- [facility] Encounter Diagnosis Procedure and treatment not carried out for other reasons(Final) - Discharge Disposition: A-D/C Home Attending Physician: Vinny SAEED, April Admitting Physician: Vinny SAEED, April Allergies, Adverse Reactions, [...] Most recent to oldest [Reference Range]: 1 Blood Pressure [90-138/55-84 mm Hg] 123/ 81mm Hg (11/20/19 5:53 PM) Respiratory Rate [16-30 br/min] 18 br/mi n (11/20/19 5:53 PM) Temperature [96.8-100.4 DegF] 98.0 DegF (11/20/19 5:53 PM) Blood pressure sites Arm, right (11/20/19 5:53 PM) Temperature Route Oral (11/20/19 5:53 PM) Social History Social History Type Response Smoking Status Former smoker entered on: 11/03/17 Sex
--- OUTSIDE RECORDS SUMMARY | 2023-02-27 17:29 | XMS_ITS | Continuity of Care Document ---
Author Name Unknown Organization [facility] ter Address [address] [place] [address]- Care Team Providers Care Private Duty Lpn Name Role Phone Not on Staff, PCP Primary Care Physician Unavail able [facility]s): 11/28/19 - 11/28/[address] [address]- [facility] Discharge Disposition: A-D/C Walkout Attending Physician: Vinny SAEED, April Admitting Physician: [...] recent to oldest [Reference Range]: 1 Weight 75.3 kg (11/28/19 1:38 PM) Pulse Rate [55-90 bpm] 84 bpm (11/28/19 1:45 PM) Blood Pressure [90-138/55-84 mm Hg] 112/ 64mm Hg (11/28/19 1:45 PM) Respiratory Rate [16-30 br/min] 16 br/mi n (11/28/19 1:45 PM) Temperature [96.8-100.4 DegF] 98.0 DegF (11/28/19 1:45 PM) Blood pressure sites Arm, right (11/28/19 1:45 PM) Temperature Route Oral (11/28/19 1:45 PM) Dry Weight 75.3 kg (11/28/19 1:38 PM) Weight Obtained Via Standing scale (11/28/19 1:38 PM) Dry Weight Obtained Via Standing scale (11/28/19 1:38 PM) Social History Social History Type Response Smoking Status Former smoker entered on: 11/03/17 Sex
--- OUTSIDE RECORDS SUMMARY | 2023-02-27 17:29 | XMS_ITS | Continuity of Care Document ---
Author Name Unknown Organization [facility] Address [address] [place] [address]- Care Team Providers Care Control Room Supervisor Name Role Phone Not on Staff, PCP Primary Care Physician Unavail able [facility](s): 01/15/20 - 02/14/20 [facility] [address] [place] [address] Allergies, Adverse Reactions, Alerts Substance Reaction [...] 01/26/20 14:36:00 EST, Route to Pharmacy Electronically, [facility]/pharmacy #[id number], Partial fill upon patient request if the prescription is for... Start Date: 01/26/20 Status: Ordered docusate sodium 100 mg oral tablet = 100 mg, By Mouth, 2 times a day, # 100 tablet, 1 Refills, Maintenance, 01/26/20 14:36:00 EST, Tablet, [facility]/pharmacy #[id number], Partial fill upon patient request if the prescription is for a schedule II opioid drug., 167.6, cm, 01/26/20 9:00:00 EST, Heigh... Start Date: 01/26/20 Status: Ordered famotidine 20 mg oral tablet 1, tablet, By Mouth, Daily at bedtime, # 30 tablet, Refills 0, Tot. Refills 0, Maintenance, 02/10/20 8:02:00 EST, Route to Pharmacy Electronically, [facility] STORE [id number], 167.6, cm, 01/26/20 9:00:00 EST, Height, 77.2, [...]
--- OUTSIDE RECORDS SUMMARY | 2023-02-27 17:29 | XMS_ITS | Continuity of Care Document ---
Author Name Unknown Organization [facility] ter Address [address] [place] [address]- Care Team Providers Care Data Analysis Intern Name Role Phone Not on Staff, PCP Primary Care Physician Unavail able [facility](s): 05/15/21 - 05/17/[address] [address]- Encounter Diagnosis Nausea(Final) - 05/15/21 Discharge Disposition: A-D/C Home Attending Physician: Breann Romero MD Admitting Physician: Amadou Myers DO Referring [...] Note: VIS GIVEN 08/19/05 Medications MorPHINE Inj 1 mg, Injection, IV Push Slowly, Every 4 hours, PRN for Pain , Moderate, Routine, 05/15/21 22:40:00EDT Start Date: 05/15/21 Stop Date: 05/17/21 Status: Discontinued pantoprazole 40 mg oral delayed release tablet = 40 mg, By Mouth, Daily, # 30 tablet, 0 Refills, Maintenance, 05/17/21 12:03:00 EDT, EC Tablet, 168, cm, 05/17/21 11:59:00 EDT, Height, 79.5, kg, 05/15/21 21:17:00 EDT, Dry Weight Start Date: 05/17/21 Status: Ordered Zofran 4 mg oral tablet 1 tablet = 4 mg, By Mouth, 3 times a day, PRN Nausea, # 12 tablet, 0 Refills, Acute 06/02/21 23:00:00 EDT, 05/17/21 12:04:00 EDT, [facility]pharmacy #[id number], Partial fill upon patient request if the prescription is for a schedule II opioid drug., 168, cm, ... Start Date: 05/17/21 Stop Date: 06/02/21 Status: Ordered Problem List Condition Effective Dates Status Health Status Inform ant Asthma(Confirmed) 1 Active Uterine abnormality during p regnancy, antepartum(Confirmed) Active Previous delivery a ffecting (Confirmed) Active H pylori(Confirmed) Active Maternal renal lithiasis, hi story of(Confirmed) Active History of chlamydia(Confirmed) Active Low back pain with hx of mil d scoliosis(Confirmed) Active 1Normal spirometry 08/30/07, needs bronchial challenge. Results Orders for Microbiology Reports Name Date Blood Culture 05/15/21 Blood Culture #2 05/15/21 Microbiology Reports TEST:Blood Culture, Second Order STATUS:Unauthenticated BODY SITE: SOURCE:Blood COLLECTED DATE/TIME:05/15/21 4:07 PM Blood Culture, Second Order SPECIMEN DESCRIPTION : BLOOD SITE UNKNOWN SPECIAL REQUESTS : NONE CULTURE : NO GROWTH AFTER 48 HOURS REPORT STATUS : PRELIMINARY REPORT TEST:Blood Culture STATUS:Unauthenticated BODY SITE: SOURCE:Blood COLLECTED DATE/TIME:05/15/21 2:50 PM Blood Culture SPECIMEN DESCRIPTION : BLOOD NO SITE SPECIAL REQUESTS : NONE CULTURE : NO GROWTH AFTER 48 HOURS REPORT STATUS : PRELIMINARY REPORT Vital Signs Most recent to oldest [Reference Range]: 1 2 3 Height 168 cm (05/17/21 11:59 AM) 168 cm (05/17/21 7:37 AM) 168 cm (05/17/21 4:00 AM) Weight 81.9 kg (05/15/21 9:17 PM) Oxygen Saturation [94-100 %] 100 % (05/17/21 11:59 AM) 98 % (05/17/21 7:37 AM) 98 % (05/17/21 4:00 AM) Pulse Rate [55-90 bpm] 75 bpm (05/17/21 11:59 AM) 115 bpm *H* (05/17/21 7:37 AM) 60 bpm (05/17/21 4:00 AM) Body Mass Index [18.5-24.99] 29.02 *H* (05/15/21 9:17 PM) Blood Pressure [90-138/55-84 mm Hg] 153/90mm Hg *H* (05/17/21 11:59 AM) 145/78mm Hg *H* (05/17/21 7:37 AM) 124/72mm Hg (05/17/21 4:00 AM) Respiratory Rate [16-30 br/min] 18 br/min (05/17/21 11:59 AM) 18 br/min (05/17/21 7:37 AM) 18 br/min (05/17/21 6:52 AM) Temperature [96.8-100.4 DegF] 98.0 DegF (05/17/21 11:59 AM) 97.9 DegF (05/17/21 7:37 AM) 97.3 DegF (05/17/21 4:00 AM) Mode of Delivery (Oxygen) Room air (05/17/21 11:59 AM) Room air (05/17/21 7:37 AM) Room air (05/17/21 4:00 AM) Blood pressure sites Arm, right (05/17/21 11:59 AM) Arm, right (05/17/21 7:37 AM) Arm, right (05/17/21 4:00 AM) Temperature Route Oral (05/17/21 11:59 AM) Oral (05/17/21 7:37 AM) Oral (05/17/21 4:00 AM) Dry Weight 79.5 kg (05/15/21 9:17 PM) Weight Obtained Via Bed scale (05/15/21 9:17 PM) Social History Social History Type Response Smoking Status Former smoker entered on: 11/03/17 Sex
--- OUTSIDE RECORDS SUMMARY | 2023-02-27 17:29 | XMS_ITS | Continuity of Care Document ---
Demographics Address [address] [place] [address] Mobile Preferred Language so Marital Status Single Mu-Ism Affiliation None Race White Ethnic Group or Author Name Unknown Organization [facility] Address [address] [place] [address]- Care Team Providers Care Auto Brake Mechanic Name Role Phone Irina FIGUEROA, Elke Primary Care Physician [phone] [facility]counter [facility]): 03/02/19 - 03/09/19 [facility] [address] [place] [address]- [facility] Attending Physician: Porter SAEED, Cristiano Alcaraz Referring Physician: Elke Aervalo NP Allergies, Adverse Reactions, Alerts Substance Reaction Severity [...] Most recent to oldest [Reference Range]: 1 Height 168 cm (03/02/19 4:23 PM) Weight 68.8 kg (03/02/19 4:23 PM) Oxygen Saturation [94-100 %] 100 % (03/02/19 4:23 PM) Pulse Rate [55-90 bpm] 104 bpm *H* (03/02/19 4:23 PM) Body Mass Index [18.5-24.99] 24.38 (03/02/19 4:23 PM) Blood Pressure [90-138/55-84 mm Hg] 153/ 80mm Hg *H* (03/02/19 4:23 PM) Respiratory Rate [16-30 br/min] 18 br/mi n (03/02/19 4:23 PM) Temperature [96.8-100.4 DegF] 99.0 DegF (03/02/19 4:23 PM) Mode of Delivery (Oxygen) Room air (03/02/19 4:23 PM) Blood pressure sites Arm, right (03/02/19 4:23 PM) Temperature Route Oral (03/02/19 4:23 PM) Dry Weight 68.8 kg (03/02/19 4:23 PM) Weight Obtained Via Standing scale (03/02/19 4:23 PM) Dry Weight Obtained Via Standing scale (03/02/19 4:23 PM) Social History Social History Type Response Smoking Status Former smoker entered on: 11/03/17 Sex
--- OUTSIDE RECORDS SUMMARY | 2023-02-27 17:29 | XMS_ITS | Continuity of Care Document ---
Author Name Unknown Organization [facility] ter Address [address] [place] [address]- Care Team Providers Care Meat And Seafood Clerk Name Role Phone Not on Staff, PCP Primary Care Physician Unavail able [facility]s): 08/31/19 - 09/02/[address] [address]- [facility] Discharge Disposition: A-D/C Home Attending Physician: Mariah Bhatt MD Admitting Physician: Kingston Booth MD Referring Physician: Not on Staff, Referring [...] Results Orders for Microbiology Reports Name Date Urine Culture (URINE CULTURE) 08/31/19 Microbiology Reports TEST:Urine Culture STATUS:Auth (Verified) BODY SITE: SOURCE:URINE COLLECTED DATE/TIME:08/31/19 10:32 AM Urine Culture SPECIMEN DESCRIPTION : URINE SPECIAL REQUESTS : NONE CULTURE : Mixed bacterial deshawn, indicative of urogenital contamination. REPORT STATUS : FINAL 09/01/2019 Vital Signs Most recent to oldest [Reference Range]: 1 2 3 Height 168 cm (09/02/19 8:23 AM) 168 cm (09/02/19 5:18 AM) 168 cm (09/01/19 11:14 PM) Weight 79.54 kg (7/24/20 6:04 AM) 78.9 kg (09/01/19 6:03 AM) 79.5 kg (08/31/19 3:03 PM) Oxygen Saturation [94-100 %] 100 % (09/02/19 8:23 AM) 100 % (09/02/19 5:18 AM) 95 % (09/01/19 11:14 PM) Pulse Rate [55-90 bpm] 70 bpm (09/02/19 8:23 AM) 69 bpm (09/02/19 5:18 AM) 75 bpm (09/01/19 11:14 PM) Body Mass Index [18.5-24.99] 28.18 *H* (09/01/19 6:04 AM) 27.84 *H* (08/31/19 3:03 PM) 27.84 *H* (08/31/19 8:50 AM) Blood Pressure [90-138/55-84 mm Hg] 110/66mm Hg (09/02/19 8:23 AM) 115/67mm Hg (09/02/19 5:18 AM) 125/70mm Hg (09/01/19 11:14 PM) Respiratory Rate [16-30 br/min] 18 br/min (09/02/19 8:51 AM) 20 br/min (09/02/19 8:23 AM) 20 br/min (09/02/19 5:18 AM) Temperature [96.8-100.4 DegF] 97.8 DegF (09/02/19 8:23 AM) 98.5 DegF (09/02/19 5:18 AM) 98.2 DegF (09/01/19 11:14 PM) Mode of Delivery (Oxygen) Room air (09/02/19 8:23 AM) Room air (09/02/19 5:18 AM) Room air (09/01/19 11:14 PM) Blood pressure sites Arm, left (09/02/19 8:23 AM) Arm, right (09/02/19 5:18 AM) Arm, right (09/01/19 11:14 PM) Temperature Route Oral (09/02/19 8:23 AM) Oral (09/02/19 5:18 AM) Oral (09/01/19 11:14 PM) Dry Weight 79.54 kg (09/01/19 6:04 AM) 79.5 kg (08/31/19 3:03 PM) 79.5 kg (08/31/19 11:17 AM) Weight Obtained Via Patient/family stated (09/01/19 6:04 AM) Bed scale (09/01/19 6:03 AM) Patient/family stated (08/31/19 8:50 AM) Dry Weight Obtained Via Patient/family stated (08/31/19 8:50 AM) Social History Social History Type Response Smoking Status Former smoker entered on: 11/03/17 Sex
--- OUTSIDE RECORDS SUMMARY | 2023-02-27 17:29 | XMS_ITS | Continuity of Care Document ---
Author Name Unknown Organization [facility] ter Address [address] [place] [address]- Care Team Providers Care Internal Corrosion Specialist Name Role Phone Not on Staff, PCP Primary Care Physician Unavail able [facility]): 05/[facility]/22 - 05/03/[address] [address]- Encounter Diagnosis Epigastric abdominal pain(Final) - 05/03/22 Discharge Disposition: A-D/C Home Attending Physician: Liudmila Kramer DO Admitting Physician: Liudmila Kramer DO Referring Physician: Not on Staff, Referring [...] GIVEN 08/19/05 Medications ondansetron 4 mg oral tablet, disintegrating 1 tablet = 4 mg, By Mouth, Every 8 hours, PRN as needed for nausea/vomiting, # 15 tablet, 0 Refills, Maintenance, 05/03/22 18:47:00 EDT, DIS Tablet, [facility]/pharmacy #[id number], Partial fill upon patient request, 168, cm, 09/07/21 13:16:00 EDT, Height, 75.5, k... Start Date: 05/03/22 Stop Date: 05/06/22 Status: Ordered Protonix 20 mg oral delayed release tablet [...] 0 Refills, Maintenance, 08/07/21 9:39:00 EDT, Tablet, [facility], Partial fill upon patient request if the prescription is for a schedule II opioid drug., 170,... Start Date: 08/07/21 Status: Ordered Problem List Condition Confirmation Course Effective Dates [...] 2 Oxygen Saturation [94-100 %] 100 % (05/03/22 7:36 PM) 99 % (05/03/22 5:42 PM) Pulse Rate [55-90 bpm] 107 bpm *H* (05/03/22 7:36 PM) 95 bpm *H* (05/03/22 5:42 PM) Blood Pressure [90-138/55-84 mm Hg] 138/ 94mm Hg (05/03/22 7:36 PM) 94/72mm Hg (05/03/22 5:42 PM) Respiratory Rate [16-30 br/min] 18 br/mi n (05/03/22 7:36 PM) 18 br/min (05/03/22 5:42 PM) Temperature [96.8-100.4 DegF] 98.4 DegF (05/03/22 7:36 PM) 98.9 DegF (05/03/22 5:42 PM) Mode of Delivery (Oxygen) Room air (05/03/22 7:36 PM) Room air (05/03/22 5:42 PM) Blood pressure sites Arm, right (05/03/22 5:42 PM) Temperature Route Oral (05/03/22 7:36 PM) Oral (05/03/22 5:42 PM) Social History Social History Type Response Smoking Status Former smoker entered on: 11/03/17 Sex Note * Kristine Lim MD: PERFORM, SIGN, VERIFY Event Display: Patient Education Handout Authored Date: [id number] * Kristine Lim MD: PERFORM Event Display: Patient Education Leaflets Authored Date: [id number] Marijuana Use Disorder ?? [id number] Marijuana Use Disorder Marijuana is the most widely used illegal drug in the [place] Recently, it's increasingly legal for recreational and medicinal use in many states. It's called by various names such as pot, weed, blunts,grass, reefer, ganja, hash, or hashish. It's usually smoked, but it can be mixed with foods or brewed as a tea. Recently a practice known as dabbing or smoking wax has become popular. This means smoking highly concentrated extracts of the marijuana plant. The result is more side effects. Sometimes, marijuana can be illegally sold with PCP (douglas dust) or amphetamine mixed in it. These illegaldrugs can cause other harmful side effects. If you're using marijuana with other illegal or legal drugs, the type and severity of side effects will vary. Marijuana can cause the following effects: ??? Changes in mood, such as stimulated, happy, drowsy, depressed, or paranoid ??? Visions (hallucinations) ??? Increased heart rate and blood pressure ??? Red eyes ??? Increased appetite ??? Time distortion, trouble concentrating, or memory problems ??? Lung damage. This is similar to cigarettes with chronic cough, wheezing, frequent colds, and bronchitis. ??? Rarely, collapse of the lung (pneumothorax) ??? Decreased sperm count ??? Dizziness, vertigo, and possibly slurred speech ??? Vomiting.Even though marijuana is used to treat nausea and vomiting, some chronic daily users have the opposite effect. They vomit uncontrollably for long periods of time (cannabinoid hyperemesis syndrome). You can become psychologically dependent on marijuana. That means the craving to use the drug is emotional or psychological rather than from physical withdrawal. Is marijuana running your life? Here are some of the signs of marijuana use disorder: ??? Relying on marijuana to feel good, forgetproblems, deal with stress or to relax ??? Wanting to be alone most of the time or only with otherswho use drugs ??? Losing interest in things that used to be important ??? Changes in school or job performance or attendance ??? Spending a lot of time thinking about how to get marijuana ??? Stealing or selling your things so you can buy marijuana ??? Unable to stop using even though you may want to quit ??? Increasing anxiety, anger,??or depression ??? Sleeping too much, or changes in eating habits (weight loss or gain) ??? Needing to use more to get the same effect ?? Home care These suggestions will help you manage marijuana use disorder: ??? Once you have become addicted toany drug, quitting is hard to do. Most people find they can't quit without help. So don???t try to do this alone. Talk to someone you trust who can support you. Seek professional help. ??? Stay away from people and places where drugs are used. That only increases the temptation to use. ?? Follow-up care Follow up with your healthcare provider, or as advised. For more information or a referral to a treatment center in your area, contact: ??? [facility]stance [facility] Mental Health Services Administration ([facility]) Treatment Locations at https://www.[facility].gov/find-treatment ??? National [place] on Alcoholism and Drug Dependence at http://inaddms.org/ or call 808-010-8559 ??? Marijuana Anonymous at marijuanaAbove Securityorg or call 462-462-0941? When to get medical care ??Call your healthcare provider right away if any of these occur: ??? You believe you're addicted to marijuana and want to stop using it. ??? You feel extreme depression, fear, anxiety, or anger toward yourself or others. ??? You feel out of control. ??? You feel that you may try to harm yourself or another. ??? You have chest pain or shortness of breath. ?? Last Reviewed Date: 2021 ?? 3937-1526 The [employer]. All rights reserved. This information is not intended as a substitute for professional medical care. Always follow your healthcare professional's instructions. ?? Patient Care team information Care Team Personnel Name: Amber Ortiz RN Position: [facility] PCO RN Member Role: Primary Care Nurse Name: Ashley Heart RN Position: [facility] AMB Nurse Member Role: Primary Care Nurse Name: Ashly Olivares RN Position: [facility] RN Member Role: Primary Care Nurse Name: Chayo Michele RN Position: [facility] OB RN Member Role: Primary Care Nurse Name: Amando Clark RN Position: [facility] RN Member Role: Primary Care Nurse Name: Not on Staff, PCP Position: [facility] Physician (General Medicine) Member Role: PCP Name: Juan A Marino RN Position: [facility] RN Member Role: Primary Care Nurse Name: Kristine Donaldson RN Position: [facility] RN Member Role: Primary Care Nurse Name: Humza Melton Position: [facility] RN Member Role: Primary Care Nurse Name: Loli Nuñez LPN Position: [facility] RN Member Role: Primary Care Nurse Name: Liudmila Kramer DO Position: [facility] ED Medicine MD Member Role: Admitting Physician Address: Address: [address] [place] [address] Name: Ken Adame Position: [facility] ED TA [facility] Name: Kristine Lim MD Position: [facility] Resident Member Role: ED Resident Address: Address: [address] [place] [address] Name: Wei Mccarty RN Position: [facility] ED RN W/OE and Tasks Member Role: Patient Care Provider Care Team Related Persons Name: KYLE RAMSEY Address: [place] [address] Name: CONCHITA JONES Name: ANIVAL MIGUEL Address: home [address] [place] [address] Name: YANNICK PICKENS Address: [id number] Address: home [address] [place] [address] Name: DARRIAN PICKENS Address: home [address] [place] [address] Name: SIMÓN PICKENS Address: [address] Address: home [address] [address]
--- OUTSIDE RECORDS SUMMARY | 2023-02-27 17:29 | XMS_ITS | Continuity of Care Document ---
Author Name Unknown Organization [facility] ter Address [address] [place] [address]- Care Team Providers Care Bid Clerk Name Role Phone Not on Staff, PCP Primary Care Physician Unavail able [facility]): 11[facility]19 - 11/16/[address] [address]- [facility] Discharge Disposition: A-D/C Home Attending Physician: Vernell Casillas DO Admitting Physician: [...] recent to oldest [Reference Range]: 1 Weight 74.7 kg (11/16/19 2:28 PM) Oxygen Saturation [94-100 %] 100 % (11/16/19 2:28 PM) Pulse Rate [55-90 bpm] 94 bpm *H* (11/16/19 2:28 PM) Blood Pressure [90-138/55-84 mm Hg] 129/ 64mm Hg (11/16/19 2:28 PM) Respiratory Rate [16-30 br/min] 18 br/mi n (11/16/19 2:28 PM) Temperature [96.8-100.4 DegF] 98.6 DegF (11/16/19 2:28 PM) Mode of Delivery (Oxygen) Room air (11/16/19 2:28 PM) Blood pressure sites Arm, right 1 (11/16/19 2:28 PM) Temperature Route Oral (11/16/19 2:28 PM) Dry Weight 74.7 kg (11/16/19 2:28 PM) 1Result Comment: right upper arm measured 31 cm Social History Social History Type Response Smoking Status Former smoker entered on: 11/03/17 Sex
--- OUTSIDE RECORDS SUMMARY | 2023-02-27 17:29 | XMS_ITS | Continuity of Care Document ---
Author Name Unknown Organization [facility] ter Address [address] [place] [address]- Care Team Providers Care Cutting And Boning Supervisor Name Role Phone Not on Staff, PCP Primary Care Physician Unavail able [facility] 11/03/19 - 01/21/[address] [id number] Attending Physician: Jared Carolina MD Referring Physician: Jared Carolina MD Allergies, Adverse Reactions, Alerts Substance Reaction [...] 01/22/20 9:16:00 EST, 01/19/20 9:16:00 EST, Cream, [facility]/pharmacy #[id number], Partial fill upon patient request if the prescription is for a schedule II opioid drug., 1 applica... Start Date: 01/19/20 Stop Date: 01/22/20 Status: Ordered famotidine 20 mg oral tablet See Instructions, TAKE 1 TABLET BY MOUTH EVERYDAY AT BEDTIME, # 30 tablet, Refills 0, Tot. Refills 0, 01/18/20 8:57:00 EST, Instructions Replace Required Details, Route to Pharmacy Electronically, [facility]/pharmacy #[id number], 165, cm, 01/18/20 8:51:00 EST, Hei... Start Date: 01/18/20 Status: Ordered ferrous sulfate 325 mg oral tablet 1 tablet = 325 mg, By Mouth, 2 times a day, # 60 tablet, 1 Refills, Maintenance, 12/28/19 16:12:00 EST, [facility]/pharmacy #1972, Partial fill upon patient request, 168, [...]
--- OUTSIDE RECORDS SUMMARY | 2023-02-27 17:29 | XMS_ITS | Continuity of Care Document ---
Author Name Unknown Organization [facility] Address [address] [place] [address]- Care Team Providers Care Identification And Records Commander Name Role Phone Not on Staff, PCP Primary Care Physician Unavail able [facility]s): 01/19/20 - 02/18/20 [facility] [address] [place] [address]- Allergies, Adverse Reactions, Alerts Substance Reaction Severity [...] 01/26/20 14:36:00 EST, Route to Pharmacy Electronically, [facility]/pharmacy #1972, Partial fill upon patient request if the prescription is for... Start Date: 01/26/20 Status: Ordered docusate sodium 100 mg oral tablet = 100 mg, By Mouth, 2 times a day, # 100 tablet, 1 Refills, Maintenance, 01/26/20 14:36:00 EST, Tablet, [facility]/pharmacy #1972, Partial fill upon patient request if the prescription is for a schedule II opioid drug., 167.6, cm, 01/26/20 9:00:00 EST, Heigh... Start Date: 01/26/20 Status: Ordered famotidine 20 mg oral tablet 1, tablet, By Mouth, Daily at bedtime, # 30 tablet, Refills 0, Tot. Refills 0, Maintenance, 02/10/20 8:02:00 EST, Route to Pharmacy Electronically, [id number], 167.6, cm, 01/26/20 9:00:00 EST, Height, 77.2, kg, 01/23/20 10:01:00 EST, Dry Weight Start Date: 02/10/20 Status: Ordered ferrous sulfate 325 mg oral tablet 1 tablet = 325 mg, By Mouth, 2 times a day, # 60 tablet, 1 Refills, Maintenance, 12/28/19 16:12:00 EST, [facility]/pharmacy #1972, Partial fill upon patient request, [...]
--- OUTSIDE RECORDS SUMMARY | 2023-02-27 17:29 | XMS_ITS | Continuity of Care Document ---
Author Name Unknown Organization [facility] ter Address [address] [place] [address]- Care Team Providers Care Tomography Technologist Name Role Phone Not on Staff, PCP Primary Care Physician Unavail able [facility](s): 01/27/20 - 04/18/[address] [address] Discharge Disposition: A-D/C Home Attending Physician: Iesha Hernandez MD Admitting Physician: Iesha Hernandez MD Referring Physician: Iesha Hernandez MD Allergies, Adverse Reactions, Alerts Substance Reaction [...] 01/26/20 14:36:00 EST, Route to Pharmacy Electronically, [facility]/pharmacy #[id number], Partial fill upon patient request if the prescription is for... Start Date: 01/26/20 Status: Ordered docusate sodium 100 mg oral tablet = 100 mg, By Mouth, 2 times a day, # 100 tablet, 1 Refills, Maintenance, 01/26/20 14:36:00 EST, Tablet, [facility]/pharmacy #1972, Partial fill upon patient request if the prescription is for a schedule II opioid drug., 167.6, cm, 01/26/20 9:00:00 EST, Heigh... Start Date: 01/26/20 Status: Ordered famotidine 20 mg oral tablet 1, tablet, By Mouth, Daily at bedtime, # 30 tablet, Refills 0, Tot. Refills 0, Maintenance, 02/10/20 8:02:00 EST, Route to Pharmacy Electronically, [facility] [id number], 167.6, cm, 01/26/20 9:00:00 EST, Height, 77.2, kg, 01/23/20 10:01:00 EST, Dry Weight Start Date: 02/10/20 Status: Ordered ferrous sulfate 325 mg oral tablet 1 tablet = 325 mg, By Mouth, 2 times a day, # 60 tablet, 1 Refills, Maintenance, 12/28/19 16:12:00 EST, [facility]/pharmacy #[id number], Partial fill upon patient request, 168, [...]
--- OUTSIDE RECORDS SUMMARY | 2023-02-27 17:29 | XMS_ITS | Continuity of Care Document ---
Author Name Unknown Organization [facility] Address [address] [place] [address]- Care Team Providers Care Aix System Administrator Name Role Phone Not on Staff, PCP Primary Care Physician Unavail able [facility]): 12/20/19 - 01/19/20 [facility] [address] [place] [address] Allergies, Adverse Reactions, Alerts Substance Reaction Severity [...] 01/22/20 9:16:00 EST, 01/19/20 9:16:00 EST, Cream, [facility]/pharmacy #1972, Partial fill upon patient request if the prescription is for a schedule II opioid drug., 1 applica... Start Date: 01/19/20 Stop Date: 01/22/20 Status: Ordered famotidine 20 mg oral tablet See Instructions, TAKE 1 TABLET BY MOUTH EVERYDAY AT BEDTIME, # 30 tablet, Refills 0, Tot. Refills 0, 01/18/20 8:57:00 EST, Instructions Replace Required Details, Route to Pharmacy Electronically, [facility]/pharmacy #1972, 165, cm, 01/18/20 8:51:00 EST, Hei... Start Date: 01/18/20 Status: Ordered ferrous sulfate 325 mg oral tablet 1 tablet = 325 mg, By Mouth, 2 times a day, # 60 tablet, 1 Refills, Maintenance, 12/28/19 16:12:00 EST, [facility]/pharmacy #1972, Partial fill upon patient request, [...]
--- OUTSIDE RECORDS SUMMARY | 2023-02-27 17:29 | XMS_ITS | Continuity of Care Document ---
Author Name Unknown Organization [facility] ter Address [address] [place] [address]- Care Team Providers Care Corral Boss Name Role Phone Not on Staff, PCP Primary Care Physician Unavail able [facility]counter [facility] Date(s): 10/31/19 - 10/31/[address] [address]- [facility] Encounter Diagnosis Nausea and vomiting in (Final) - 10/31/19 Discharge Disposition: A-D/C Home Attending Physician: Troy Benitez MD Admitting Physician: Troy Benitez MD Referring Physician: Not on Staff, Referring [...] 3 Oxygen Saturation [94-100 %] 100 % (10/31/19 4:50 AM) 99 % (10/31/19 4:10 AM) 96 % (10/31/19 2:08 AM) Pulse Rate [55-90 bpm] 61 bpm (10/31/19 4:50 AM) 85 bpm (10/31/19 4:10 AM) 76 bpm (10/31/19 2:08 AM) Blood Pressure [90-138/55-84 mm Hg] 123/60mm Hg (10/31/19 4:50 AM) 115/72mm Hg (10/31/19 4:10 AM) 131/82mm Hg (10/31/19 2:08 AM) Respiratory Rate [16-30 br/min] 18 br/min (10/31/19 4:50 AM) 16 br/min (10/31/19 4:10 AM) 20 br/min (10/31/19 2:08 AM) Temperature [96.8-100.4 DegF] 98.6 DegF (10/31/19 4:10 AM) 98.5 DegF (10/31/19 2:08 AM) Mode of Delivery (Oxygen) Room air (10/31/19 4:50 AM) Room air (10/31/19 4:10 AM) Room air (10/31/19 2:08 AM) Blood pressure sites Arm, right (10/31/19 4:50 AM) Arm, left (10/31/19 4:10 AM) Arm, left (10/31/19 2:08 AM) Temperature Route Oral (10/31/19 4:10 AM) Oral (10/31/19 2:08 AM) Social History Social History Type Response Smoking Status Former smoker entered on: 11/03/17 Sex
--- OUTSIDE RECORDS SUMMARY | 2023-02-27 17:29 | XMS_ITS | Continuity of Care Document ---
Author Name Unknown Organization [facility] Address [address] [place] [address]- Care Team Providers Care Valve Grinder Name Role Phone Not on Staff, PCP Primary Care Physician Unavail able [facility]): 07/22/21 - 08/21/[address] [address] Attending Physician: Chacho Gallegos Admitting Physician: Chacho Gallegos Referring Physician: Admtr, Chacho Allergies, Adverse Reactions, Alerts Substance Reaction Severity [...] 0 Refills, Maintenance, 08/07/21 9:39:00 EDT, Tablet, [facility], Partial fill upon patient request if [...]
--- OUTSIDE RECORDS SUMMARY | 2023-02-27 17:29 | XMS_ITS | Continuity of Care Document ---
Author Name Unknown Organization [facility] Address [address] [place] [address]- Care Team Providers Care Ceo Name Role Phone Not on Staff, PCP Primary Care Physician Unavail able [facility]counter [facility](s): 02/07/20 - 03/08/20 [facility] [address] [place] [id number] Allergies, Adverse Reactions, Alerts Substance Reaction [...] 01/26/20 14:36:00 EST, Route to Pharmacy Electronically, [facility]/pharmacy #1972, Partial fill upon patient request if the prescription is for... Start Date: 01/26/20 Status: Ordered docusate sodium 100 mg oral tablet = 100 mg, By Mouth, 2 times a day, # 100 tablet, 1 Refills, Maintenance, 01/26/20 14:36:00 EST, Tablet, [facility]/pharmacy #1972, Partial fill upon patient request if the prescription is for a schedule II opioid drug., 167.6, cm, 01/26/20 9:00:00 EST, Heigh... Start Date: 01/26/20 Status: Ordered famotidine 20 mg oral tablet 1, tablet, By Mouth, Daily at bedtime, # 30 tablet, Refills 0, Tot. Refills 0, Maintenance, 02/10/20 8:02:00 EST, Route to Pharmacy Electronically, [facility] [id number], 167.6, cm, 01/26/20 9:00:00 EST, Height, 77.2, [...]
--- OUTSIDE RECORDS SUMMARY | 2023-02-27 17:29 | XMS_ITS | Continuity of Care Document ---
Author Name Unknown Organization [facility] Address [address] [place] [address]- Care Team Providers Care Reverberatory Furnace Operator Name Role Phone Not on Staff, PCP Primary Care Physician Unavail able [facility]s): 02/19/20 - 03/20/20 [facility] [address] [place] [id number] Allergies, Adverse Reactions, Alerts Substance Reaction Severity [...] 01/26/20 14:36:00 EST, Route to Pharmacy Electronically, [facility]/pharmacy #1972, Partial fill upon patient request if the prescription is for... Start Date: 01/26/20 Status: Ordered docusate sodium 100 mg oral tablet = 100 mg, By Mouth, 2 times a day, # 100 tablet, 1 Refills, Maintenance, 01/26/20 14:36:00 EST, Tablet, [facility]/pharmacy #1972, Partial fill upon patient request if the prescription is for a schedule II opioid drug., 167.6, cm, 01/26/20 9:00:00 EST, Heigh... Start Date: 01/26/20 Status: Ordered famotidine 20 mg oral tablet 1, tablet, By Mouth, Daily at bedtime, # 30 tablet, Refills 0, Tot. Refills 0, Maintenance, 02/10/20 8:02:00 EST, Route to Pharmacy Electronically, [facility] [id number], 167.6, cm, 01/26/20 9:00:00 EST, Height, 77.2, kg, 01/23/20 10:01:00 EST, Dry Weight Start Date: 02/10/20 Status: Ordered ferrous sulfate 325 mg oral tablet 1 tablet = 325 mg, By Mouth, 2 times a day, # 60 tablet, 1 Refills, Maintenance, 12/28/19 16:12:00 EST, [facility]/pharmacy #1972, Partial fill upon patient request, [...]
--- OUTSIDE RECORDS SUMMARY | 2023-02-27 17:29 | XMS_ITS | Continuity of Care Document ---
Author Name Unknown Organization [facility] ter Address [address] [place] [address]- Care Team Providers Care Chief Design Engineer Name Role Phone Not on Staff, PCP Primary Care Physician Unavail able [facility](s): 11/22/19 - 11/22/[address] [address]- [facility] Discharge Disposition: A-D/C Home Attending Physician: Nunu Martinez MD Admitting Physician: Nunu Martinez MD Referring Physician: Nunu Martinez MD Allergies, Adverse Reactions, Alerts Substance Reaction [...] oldest [Reference Range]: 1 2 3 Weight 74.7 kg (11/22/19 1:22 PM) Blood Pressure [90-138/55-84 mm Hg] 99/56mm Hg (11/22/19 1:44 PM) Respiratory Rate [16-30 br/min] 20 br/min (11/22/19 7:13 PM) 20 br/min (11/22/19 3:33 PM) 20 br/min (11/22/19 1:44 PM) Temperature [96.8-100.4 DegF] 97.9 DegF (11/22/19 1:44 PM) Blood pressure sites Arm, right (11/22/19 1:44 PM) Temperature Route Oral (11/22/19 1:44 PM) Dry Weight 74.7 kg (11/22/19 1:22 PM) Weight Obtained Via Standing scale (11/22/19 1:22 PM) Dry Weight Obtained Via Standing scale (11/22/19 1:22 PM) Social History Social History Type Response Smoking Status Former smoker entered on: 11/03/17 Sex
--- OUTSIDE RECORDS SUMMARY | 2023-02-27 17:29 | XMS_ITS | Continuity of Care Document ---
Author Name Unknown Organization [facility] ter Address [address] [place] [id number]- Care Team Providers Care Electronic Data Processing Auditor Name Role Phone Not on Staff, PCP Primary Care Physician Unavail able [facility] Date[facility]s): 02/04/21 - 02/04/[address] [address]- Discharge Disposition: A-D/C Walkout Attending Physician: Not [...] 11/07/19 Not Given Patient Refuses 1Location History: [facility] 2Admin Note: VIS GIVEN 03/12/06 3Admin Note: VIS GIVEN 08/19/05 Medications acetaminophen 325 mg oral tablet 650 mg, By Mouth, Every 4 hours, not to exceed 4000 mg/day, # 50 tablet, Refills 1, Tot. Refills 1,Maintenance, 01/26/20 14:36:00 EST, Route to Pharmacy Electronically, [facility]/pharmacy #[id number], Partial fill upon patient request if the prescription is for... Start Date: 01/26/20 Status: Ordered docusate sodium 100 mg oral tablet = 100 mg, By Mouth, 2 times a day, # 100 tablet, 1 Refills, Maintenance, 01/26/20 14:36:00 EST, Tablet, [facility]/pharmacy #1972, Partial fill upon patient request if the prescription is for a schedule II opioid drug., 167.6, cm, 01/26/20 9:00:00 EST, Heigh... Start Date: 01/26/20 Status: Ordered famotidine 20 mg oral tablet 1, tablet, By Mouth, Daily at bedtime, # 30 tablet, Refills 0, Tot. Refills 0, Maintenance, 02/10/20 8:02:00 EST, Route to Pharmacy Electronically, [facility] [id number], 167.6, cm, 01/26/20 9:00:00 EST, Height, 77.2, [...] Exam Date Time Procedure Performing Provider Status 02/04/21 6:24 PM Chest 2 Views Frontal and Lat Oralia Garcia; Auth (Verified) Notes: (Chest 2 Views Frontal and Lat) Reason For Exam: Shortness of Breath RESULT: Chest 2 Views Frontal and Lat Chest 2 Views Frontal and Lat Hx of Present Illness: Fevers, weak, dizzy, chills, [place]. Tachy. Sore throat. Denies CP, SOB, AP.; Reason: Shortness of Breath; Clinical Question(s): Pneumonia COMPARISON: 03/27/2020 FINDINGS: LINES AND TUBES: None. LUNGS AND PLEURA: Clear lungs. Normal pulmonary vascularity. No pleural effusion. No pneumothorax. HEART, MEDIASTINUM AND ORION: Heart is normal in size. Normal upper mediastinal and hilar contour. BONES AND SOFT TISSUES: No acute abnormality. IMPRESSION: No acute abnormality. WSN: [id number] Ordering Physician: Darren Yin Dictated By: Ajay Burnham MD Dictated Date/Time: 02/04/21 6:26 pm Reviewed By: Ajay Burnham MD Signed By: Ajay Burnham MD Signed Date/Time: 02/04/21 6:26 pm Transcribed By: AZUCENA Transcribed Date/Time: 02/04/21 6:25 pm Vital Signs Most recent to oldest [Reference Range]: 1 Oxygen Saturation [94-100 %] 100 % (02/04/21 4:42 PM) Pulse Rate [55-90 bpm] 140 bpm *H* (02/04/21 4:42 PM) Blood Pressure [90-138/55-84 mm Hg] 129/ 85mm Hg (02/04/21 4:42 PM) Respiratory Rate [16-30 br/min] 18 br/mi n (02/04/21 4:42 PM) Temperature [96.8-100.4 DegF] 99.3 DegF (02/04/21 4:42 PM) Mode of Delivery (Oxygen) Room air (02/04/21 4:42 PM) Temperature Route Oral (02/04/21 4:42 PM) Social History Social History Type Response Smoking Status Former smoker entered on: 11/03/17 Sex
--- OUTSIDE RECORDS SUMMARY | 2023-02-27 17:29 | XMS_ITS | Continuity of Care Document ---
Author Name Unknown Organization [facility] al Address [address] [place] [address]- Care Team Providers Care Display Fabrication Supervisor Name Role Phone Not on Staff, PCP Primary Care Physician Unavail able Encounter [facility] Date(s): 05/13/21 - 05/13/[address] [address]- Encounter Diagnosis Vomiting(Final) - 05/13/21 Discharge Disposition: A-D/C AMA Attending Physician: Jyothi SAEED, Tyrese Dial Admitting Physician: Jyothi SAEED, Tyrese Dial Referring Physician: Not on Staff, Referring [...] 14:36:00 EST, Route to Pharmacy Electronically, [facility]/pharmacy #[id number], Partial fill upon patient request if the prescription is for... Start Date: 01/26/20 Status: Ordered docusate sodium 100 mg oral tablet = 100 mg, By Mouth, 2 times a day, # 100 tablet, 1 Refills, Maintenance, 01/26/20 14:36:00 EST, Tablet, [facility]/pharmacy #1972, Partial fill upon patient request if the prescription is for a schedule II opioid drug., 167.6, cm, 01/26/20 9:00:00 EST, Heigh... Start Date: 01/26/20 Status: Ordered famotidine 20 mg oral tablet 1, tablet, By Mouth, Daily at bedtime, # 30 tablet, Refills 0, Tot. Refills 0, Maintenance, 02/10/20 8:02:00 EST, Route to Pharmacy Electronically, [id number], 167.6, cm, 01/26/20 9:00:00 EST, Height, 77.2, [...] with hx of mil d scoliosis(Confirmed) Active Obese class I(Confirmed) Active 1Normal spirometry 08/30/07, needs bronchial challenge. Vital Signs Most recent to oldest [Reference Range]: 1 2 Height 160 cm (05/13/21 1:56 PM) 160 cm (05/13/21 1:52 PM) Weight 79.5 kg (05/13/21 1:56 PM) 79.5 kg (05/13/21 1:52 PM) Oxygen Saturation [94-100 %] 100 % (05/13/21 1:56 PM) Pulse Rate [55-90 bpm] 80 bpm (05/13/21 1:56 PM) Body Mass Index [18.5-24.99] 31.05 *>HHI* (05/13/21 1:56 PM) Blood Pressure [90-138/55-84 mm Hg] 130/ 61mm Hg (05/13/21 1:56 PM) Respiratory Rate [16-30 br/min] 20 br/mi n (05/13/21 1:56 PM) Temperature [96.8-100.4 DegF] 97.4 DegF (05/13/21 1:56 PM) Mode of Delivery (Oxygen) Room air (05/13/21 1:56 PM) Blood pressure sites Arm, right (05/13/21 1:56 PM) Temperature Route Temporal (05/13/21 1:56 PM) Dry Weight 79.5 kg (05/13/21 1:56 PM) 79.5 kg (05/13/21 1:52 PM) Social History Social History Type Response Smoking Status Former smoker entered on: 11/03/17 Sex
--- OUTSIDE RECORDS SUMMARY | 2023-02-27 17:29 | XMS_ITS | Continuity of Care Document ---
Author Name Unknown Organization [facility] Address [address] [place] [address]- Care Team Providers Care Records Management Coordinator Name Role Phone Irina FIGUEROA, Elke Primary Care Physician [phone] [facility]counter [facility] Date[facility]s): 05/23/19 - 05/30/19 [facility] [address] [place] [address]- [facility] Attending Physician: Not on Staff, Attending MD Allergies, Adverse Reactions, Alerts Substance Reaction [...] 0 Refills, Maintenance, 05/23/19 10:37:00 EDT, Powder, [facility]/pharmacy #1972, 2 puffs Inhalation Every 6 hours,PRN:as [...]
--- OUTSIDE RECORDS SUMMARY | 2023-02-27 17:29 | XMS_ITS | Continuity of Care Document ---
Author Name Unknown Organization [facility] ter Address [address] [place] [phone]- Care Team Providers Care Fish Processing Supervisor Name Role Phone Not on Staff, PCP Primary Care Physician Unavail able [facility]counter [facility] Date(s): 01/11/20 - 02/21/[address] [address] Attending Physician: Abdulaziz Mckeon MD Referring Physician: Abdulaziz Mckeon MD Allergies, Adverse Reactions, Alerts Substance Reaction [...] 01/26/20 14:36:00 EST, Route to Pharmacy Electronically, [facility]/pharmacy #1972, Partial fill upon patient request if the prescription is for... Start Date: 01/26/20 Status: Ordered docusate sodium 100 mg oral tablet = 100 mg, By Mouth, 2 times a day, # 100 tablet, 1 Refills, Maintenance, 01/26/20 14:36:00 EST, Tablet, [facility]/pharmacy #1972, Partial fill upon patient request if the prescription is for a schedule II opioid drug., 167.6, cm, 01/26/20 9:00:00 EST, Heigh... Start Date: 01/26/20 Status: Ordered famotidine 20 mg oral tablet 1, tablet, By Mouth, Daily at bedtime, # 30 tablet, Refills 0, Tot. Refills 0, Maintenance, 02/10/20 8:02:00 EST, Route to Pharmacy Electronically, [facility] [id number], 167.6, cm, 01/26/20 9:00:00 EST, Height, 77.2, kg, 01/23/20 10:01:00 EST, Dry Weight Start Date: 02/10/20 Status: Ordered ferrous sulfate 325 mg oral tablet 1 tablet = 325 mg, By Mouth, 2 times a day, # 60 tablet, 1 Refills, Maintenance, 12/28/19 16:12:00 EST, [facility]/pharmacy #1972, Partial fill upon patient request, 168, [...]
--- OUTSIDE RECORDS SUMMARY | 2023-02-27 17:29 | XMS_ITS | Continuity of Care Document ---
Author Name Unknown Organization [facility] ter Address [address] [place] [address]- Care Team Providers Care Bottom Loader Name Role Phone Not on Staff, PCP Primary Care Physician Unavail able [facility] Date(s): 01/20/20 - 01/20/[address] [id number] Discharge Disposition: A-D/C AMA Attending Physician: Bibiana Loza MD Admitting Physician: [...] 01/22/20 9:16:00 EST, 01/19/20 9:16:00 EST, Cream, [facility]/pharmacy #1972, Partial fill upon patient request if the prescription is for a schedule II opioid drug., 1 applica... Start Date: 01/19/20 Stop Date: 01/22/20 Status: Ordered famotidine 20 mg oral tablet See Instructions, TAKE 1 TABLET BY MOUTH EVERYDAY AT BEDTIME, # 30 tablet, Refills 0, Tot. Refills 0, 01/18/20 8:57:00 EST, Instructions Replace Required Details, Route to Pharmacy Electronically, [facility]/pharmacy #1972, 165, cm, 01/18/20 8:51:00 EST, [...] recent to oldest [Reference Range]: 1 Height 165 cm (01/20/20 1:04 PM) Oxygen Saturation [94-100 %] 98 % (01/20/20 1:04 PM) Blood Pressure [90-138/55-84 mm Hg] 129/ 77mm Hg (01/20/20 1:04 PM) Respiratory Rate [16-30 br/min] 18 br/mi n (01/20/20 1:04 PM) Temperature [96.8-100.4 DegF] 98.3 DegF (01/20/20 12:52 PM) Social History Social History Type Response Smoking Status Former smoker entered on: 11/03/17 Sex
--- OUTSIDE RECORDS SUMMARY | 2023-02-27 17:29 | XMS_ITS | Continuity of Care Document ---
Author Name Unknown Organization [facility] al Address [address] [place] [address]- Care Team Providers Care [employer] Truck Driver Name Role Phone Not on Staff, PCP Primary Care Physician Unavail able Encounter [facility] Date(s): 01/08/21 - 01/09/[address] [address]- Discharge Disposition: A-D/C Home Attending Physician: Ross Lagunas DO Admitting Physician: Ross Lagunas DO Referring Physician: Not on Staff, Referring [...] 01/26/20 14:36:00 EST, Route to Pharmacy Electronically, [facility]/pharmacy #1972, Partial fill upon patient request if the prescription is for... Start Date: 01/26/20 Status: Ordered docusate sodium 100 mg oral tablet = 100 mg, By Mouth, 2 times a day, # 100 tablet, 1 Refills, Maintenance, 01/26/20 14:36:00 EST, Tablet, [facility]/pharmacy #1972, Partial fill upon patient request if the prescription is for a schedule II opioid drug., 167.6, cm, 01/26/20 9:00:00 EST, Heigh... Start Date: 01/26/20 Status: Ordered famotidine 20 mg oral tablet 1, tablet, By Mouth, Daily at bedtime, # 30 tablet, Refills 0, Tot. Refills 0, Maintenance, 02/10/20 8:02:00 EST, Route to Pharmacy Electronically, [facility] STORE [id number], 167.6, cm, 01/26/20 9:00:00 EST, Height, 77.2, kg, 01/23/20 10:01:00 EST, Dry Weight Start Date: 02/10/20 Status: Ordered ferrous sulfate 325 mg oral tablet 1 tablet = 325 mg, By Mouth, 2 times a day, # 60 tablet, 1 Refills, Maintenance, 12/28/19 16:12:00 EST, [facility]/pharmacy #1972, Partial fill upon patient request, 168, [...] Range]: 1 2 3 Height 168 cm (01/08/21 6:41 PM) Weight 82 kg (01/08/21 6:41 PM) Oxygen Saturation [94-100 %] 100 % (01/09/21 12:00 AM) 100 % (01/08/21 9:00 PM) 100 % (01/08/21 6:41 PM) Pulse Rate [55-90 bpm] 59 bpm (01/09/21 12:00 AM) 74 bpm (01/08/21 9:00 PM) 72 bpm (01/08/21 6:41 PM) Blood Pressure [90-138/55-84 mm Hg] 95/58mm Hg (01/09/21 12:00 AM) 133/67mm Hg (01/08/21 9:00 PM) 128/75mm Hg (01/08/21 6:41 PM) Respiratory Rate [16-30 br/min] 16 br/min (01/09/21 12:00 AM) 20 br/min (01/08/21 9:00 PM) 20 br/min (01/08/21 6:41 PM) Temperature [96.8-100.4 DegF] 97.9 DegF (01/09/21 12:00 AM) 98.0 DegF (01/08/21 9:00 PM) 98.4 DegF (01/08/21 6:41 PM) Mode of Delivery (Oxygen) Room air (01/09/21 12:00 AM) Room air (01/08/21 9:00 PM) Room air (01/08/21 6:41 PM) Blood pressure sites Arm, right (01/09/21 12:00 AM) Arm, left (01/08/21 9:00 PM) Arm, left (01/08/21 6:41 PM) Temperature Route Oral (01/09/21 12:00 AM) Oral (01/08/21 9:00 PM) Oral (01/08/21 6:41 PM) Dry Weight 82 kg (01/08/21 6:41 PM) Weight Obtained Via Patient/family state d (01/08/21 6:41 PM) Social History Social History Type Response Smoking Status Former smoker entered on: 11/03/17 Sex
--- OUTSIDE RECORDS SUMMARY | 2023-02-27 17:29 | XMS_ITS | Continuity of Care Document ---
Author Name Unknown Organization [facility] al Address [address] [place] [address]- Care Team Providers Care Table Games Dual Rate Supervisor Name Role Phone Not on Staff, PCP Primary Care Physician Unavail able Encounter [facility] Date(s): 10/06/21 - 10/06/[address] [address]- Discharge Disposition: A-D/C Walkout Attending Physician: Bryson Menjivar MD Admitting Physician: Bryson Menjivar MD Referring Physician: Not on Staff, Referring [...] 0 Refills, Maintenance, 08/07/21 9:39:00 EDT, Tablet, [facility], Partial fill upon patient request if [...]
--- OUTSIDE RECORDS SUMMARY | 2023-02-27 17:30 | XMS_ITS | Continuity of Care Document ---
Author Name Unknown Organization [facility] ter Address [address] [place] [address]- Care Team Providers Care Housing Officer Name Role Phone Not on Staff, PCP Primary Care Physician Unavail able [facility] Date(s): 01/23/20 - 01/26/[address] [address] Discharge Disposition: A-D/C Home Attending Physician: Iesha [...] 01/26/20 14:36:00 EST, Route to Pharmacy Electronically, [facility]/pharmacy #1972, Partial fill upon patient request if the prescription is for... Start Date: 01/26/20 Status: Ordered Acetaminophen Tablet 650 mg, Tablet, By Mouth, (1-3), may give 325mg per patient preference and re- dose with 325mg within 4 hours, if needed. Patient should only receive a total of 650mg of Acetaminophen every 4 hours., 01/25/20 18:00:00 EST Start Date: 01/25/20 Stop Date: 01/26/20 Status: Completed docusate sodium 100 mg oral tablet = 100 mg, By Mouth, 2 times a day, # 100 tablet, 1 Refills, Maintenance, 01/26/20 14:36:00 EST, Tablet, [facility]/pharmacy #1972, Partial fill upon patient request if the prescription is for a schedule II opioid drug., 167.6, cm, 01/26/20 9:00:00 EST, Heigh... Start Date: 01/26/20 Status: Ordered famotidine 20 mg oral tablet See Instructions, TAKE 1 TABLET BY MOUTH EVERYDAY AT BEDTIME, # 30 tablet, Refills 0, Tot. Refills 0, 01/18/20 8:57:00 EST, Instructions Replace Required Details, Route to Pharmacy Electronically, [facility]/pharmacy #1972, 165, cm, 01/18/20 8:51:00 [...] the prescript... Start Date: 01/26/20 Status: Ordered OxyCODONE IR Tablet 10 mg, Tablet, By Mouth, Every 3 hours, PRN for Pain , Severe, (7-10), Routine, 01/25/20 7:18:00 EST Start Date: 01/25/20 Stop Date: 01/27/20 Status: Discontinued Multivitamins By Mouth, Daily, 0 Refills, Maintenance, [...] bronchial challenge. 2Problem added by Discern Expert Procedures Procedure Date Related Diagnosis Body Site Status delivery only; 01/23/20 C ompleted Vital Signs Most recent to oldest [Reference Range]: 1 2 3 Height 167.6 cm (01/26/20 8:00 AM) 167.6 cm (01/26/20 12:55 AM) 167.6 cm (01/25/20 4:34 PM) Weight 77.2 kg (01/23/20 10:01 AM) Oxygen Saturation [94-100 %] 96 % (01/26/20 8:00 AM) 100 % (01/26/20 12:55 AM) 95 % (01/25/20 4:34 PM) Pulse Rate [55-90 bpm] 96 bpm *H* (01/26/20 8:00 AM) 76 bpm (01/26/20 12:55 AM) 78 bpm (01/25/20 4:34 PM) Body Mass Index [18.5-24.99] 27.48 *H* (01/23/20 10:01 AM) Blood Pressure [90-138/55-84 mm Hg] 123/59mm Hg (01/26/20 8:00 AM) 117/67mm Hg (01/26/20 12:55 AM) 105/59mm Hg (01/25/20 4:34 PM) Respiratory Rate [16-30 br/min] 20 br/min (01/26/20 4:23 PM) 20 br/min (01/26/20 12:13 PM) 20 br/min (01/26/20 12:12 PM) Temperature [96.8-100.4 DegF] 98.5 DegF (01/26/20 8:00 AM) 97.6 DegF (01/26/20 12:55 AM) 97.6 DegF (01/25/20 4:34 PM) Mode of Delivery (Oxygen) Room air (01/26/20 8:00 AM) Room air (01/26/20 12:55 AM) Room air (01/25/20 4:00 AM) Blood pressure sites Arm, right (01/26/20 8:00 AM) Arm, left (01/26/20 12:55 AM) Arm, left (01/25/20 4:00 AM) Temperature Route Oral (01/26/20 8:00 AM) Oral (01/26/20 12:55 AM) Oral (01/25/20 4:34 PM) Dry Weight 77.2 kg (01/23/20 10:01 AM) Weight Obtained Via Patient/family state d (01/23/20 10:01 AM) Dry Weight Obtained Via Patient/family s tated (01/23/20 10:01 AM) Social History Social History Type Response Smoking Status Former smoker entered on: 11/03/17 Sex
--- OUTSIDE RECORDS SUMMARY | 2023-02-27 17:30 | XMS_ITS | Continuity of Care Document ---
Author Name Unknown Organization [facility] Address [address] [place] [phone]- Care Team Providers Care Product Engineer Name Role Phone Not on Staff, PCP Primary Care Physician Unavail able [facility] Date(s): 02/12/20 - 03/13/[facility] [address] [place] [id number] Allergies, Adverse Reactions, Alerts [...] 01/26/20 14:36:00 EST, Route to Pharmacy Electronically, [facility]/pharmacy #1972, Partial fill upon patient request if the prescription is for... Start Date: 01/26/20 Status: Ordered docusate sodium 100 mg oral tablet = 100 mg, By Mouth, 2 times a day, # 100 tablet, 1 Refills, Maintenance, 01/26/20 14:36:00 EST, Tablet, [facility]/pharmacy #1972, Partial fill upon patient request if the prescription is for a schedule II opioid drug., 167.6, cm, 01/26/20 9:00:00 EST, Heigh... Start Date: 01/26/20 Status: Ordered famotidine 20 mg oral tablet 1, tablet, By Mouth, Daily at bedtime, # 30 tablet, Refills 0, Tot. Refills 0, Maintenance, 02/10/20 8:02:00 EST, Route to Pharmacy Electronically, [facility] STORE [id number], 167.6, cm, 01/26/20 9:00:00 EST, Height, 77.2, kg, 01/23/20 10:01:00 EST, Dry Weight Start Date: 02/10/20 Status: Ordered ferrous sulfate 325 mg oral tablet 1 tablet = 325 mg, By Mouth, 2 times a day, # 60 tablet, 1 Refills, Maintenance, 12/28/19 16:12:00 EST, [facility]/pharmacy #1972, Partial fill upon patient request, [...]
--- OUTSIDE RECORDS SUMMARY | 2023-02-27 17:30 | XMS_ITS | Continuity of Care Document ---
Author Name Unknown Organization [facility] Address [address] [place] [phone]- Care Team Providers Care Gamma Facilities Operator Name Role Phone Not on Staff, PCP Primary Care Physician Unavail able [facility] Date[facility]s): 01/19/20 - 02/18/20 [facility] [address] [place] [phone]- Allergies, Adverse Reactions, Alerts Substance Reaction Severity [...] 01/26/20 14:36:00 EST, Route to Pharmacy Electronically, [facility]/pharmacy #1972, Partial fill upon patient request if the prescription is for... Start Date: 01/26/20 Status: Ordered docusate sodium 100 mg oral tablet = 100 mg, By Mouth, 2 times a day, # 100 tablet, 1 Refills, Maintenance, 01/26/20 14:36:00 EST, Tablet, [facility]/pharmacy #1972, Partial fill upon patient request if the prescription is for a schedule II opioid drug., 167.6, cm, 01/26/20 9:00:00 EST, Heigh... Start Date: 01/26/20 Status: Ordered famotidine 20 mg oral tablet 1, tablet, By Mouth, Daily at bedtime, # 30 tablet, Refills 0, Tot. Refills 0, Maintenance, 02/10/20 8:02:00 EST, Route to Pharmacy Electronically, [facility] ST[facility] [address]25, 167.6, cm, 01/26/20 9:00:00 EST, Height, 77.2, kg, 01/23/20 10:01:00 EST, Dry Weight Start Date: 02/10/20 Status: Ordered ferrous sulfate 325 mg oral tablet 1 tablet = 325 mg, By Mouth, 2 times a day, # 60 tablet, 1 Refills, Maintenance, 12/28/19 16:12:00 EST, [facility]/pharmacy #1972, Partial fill upon patient request, 168, [...]
--- OUTSIDE RECORDS SUMMARY | 2023-02-27 17:30 | XMS_ITS | Continuity of Care Document ---
Author Name Unknown Organization [facility] ter Address [address] [place] [address]- Care Team Providers Care Manager Delivery Name Role Phone Not on Staff, PCP Primary Care Physician Unavail able [facility] Date(s): 09/05/21 - 09/06/[address] [address]- Encounter Diagnosis Abdominal pain nausea and vomiting(Final) - 09/06/21 Discharge Disposition: A-D/C Home Attending Physician: Gita Mckeon MD Admitting Physician: Gita Mckeon MD Referring Physician: Not on Staff, Referring [...] 0 Refills, Maintenance, 08/07/21 9:39:00 EDT, Tablet, [facility], Partial fill upon [...] 3 Oxygen Saturation [94-100 %] 100 % (09/06/21 7:48 AM) 100 % (09/06/21 5:26 AM) 100 % (09/06/21 3:34 AM) Pulse Rate [55-90 bpm] 82 bpm (09/06/21 7:48 AM) 79 bpm (09/06/21 5:26 AM) 64 bpm (09/06/21 3:34 AM) Blood Pressure [90-138/55-84 mm Hg] 137/80mm Hg (09/06/21 7:48 AM) 139/88mm Hg *H* (09/06/21 5:26 AM) 124/83mm Hg (09/06/21 3:34 AM) Respiratory Rate [16-30 br/min] 20 br/min (09/06/21 5:26 AM) 18 br/min (09/05/21 10:51 PM) Temperature [96.8-100.4 DegF] 97.5 DegF (09/06/21 7:48 AM) 97.7 DegF (09/06/21 3:34 AM) 98 DegF (09/06/21 1:46 AM) Mode of Delivery (Oxygen) Room air (09/06/21 7:48 AM) Room air (09/06/21 5:26 AM) Room air (09/06/21 3:34 AM) Blood pressure sites Arm, left (09/06/21 7:48 AM) Arm, left (09/06/21 5:26 AM) Arm, left (09/06/21 3:34 AM) Temperature Route Temporal (09/06/21 7:48 AM) Oral (09/06/21 3:34 AM) Temporal (09/06/21 1:46 AM) Social History Social History Type Response Smoking Status Former smoker entered on: 11/03/17 Sex
[2023-02-27] MEDS: Ketorolac Tromethamine 60 MG/2 ML VIAL IM (17:46)
--- NOTE | 2023-02-27 18:19 | PC.NURSE ---
patient crying out in room, banging on rankin.
[2023-02-27] MEDS: diazePAM 2 MG TABLET PO (18:28)
--- NOTE | 2023-02-27 18:30 | PC.NURSE ---
medicated per the MAR for pain
[2023-02-27 19:05] VITALS: BP 132/78; PULSE 88; RESP 20; TEMP 36.6; O2SAT 98
[2023-02-27 19:17] LABS: Appearance Urine Turbid; Color Urine Yellow; Glucose Urine UA Negative (Negative); Leukocyte Esterase Urine Trace (Negative); Nitrite Urine Negative (Negative); PH 5.5 (5.0-9.0); Specific Gravity - Urine >= 1.030 (1.005-1.025); UMIC TRIGGER UACC YES; Urine Blood Small (1+) (Negative); Urine Ketones Trace mg/dL (Negative); Urine Protein 30 (1+) mg/dL (Neg-Trace)
[2023-02-27 19:33] LABS: Bacteria Urine 4+ (None Seen); Hyaline Casts Urine 0-2 /LPF (0-2); Squamous Epithelial Cell Urine >20 /HPF (0-2); UACC Culture Trigger YES
[2023-02-27 19:34] LABS: WBC Urine 0-5 /HPF (0-5)
[2023-02-27] MEDS: predniSONE 10 MG TABLET 50 MG PO (20:15)
[2023-02-27] MEDS: Morphine Sulfate 4 MG/ML CARTRIDGE IM (20:41)
== END 2023-02-27 21:50 | disposition home or self-care (01) ==
PROVIDERS: Nurse Practitioner Family; Emergency Provider Emergency Medicine Emergency Medical Services; PCP Physician Assistant
DX: Z04.2 Encounter for examination and observation following work accident (principal); M54.50 Low back pain, unspecified
CPT/HCPCS: 72100; 76775; 81001; 87086; 96372; 99284; J1885; J2270

== ENCOUNTER 2023-04-08 07:45 | Observation (INO) | payer OTHER, SELFPAY ==
--- NOTE | ~2023-04-08 | CT_ITS ---
EXAMINATION: CT ABDOMEN AND PELVIS WITH CONTRAST CLINICAL INFORMATION: Abdominal pain. COMPARISON: 02/23/2023 TECHNIQUE: Multidetector volumetric images were obtained from the superior aspect of the liver through the pubic symphysis following administration 85 mL of Omnipaque 350 intravenous contrast. Sagittal and coronal reformatted images were obtained on the technologist's workstation. Oral contrast: No This CT examination was performed using dose optimization techniques as appropriate, variously including the following: *Automated exposure control *Adjustment of mA and/or kV according to patient size (this includes techniques or standardized protocols for targeted exams where dose is matched to indication/reason for exam; i.e. extremities or head) *Use of iterative reconstruction technique DLP: 632 mGy-cm FINDINGS: Motion artifact technically degrades image quality. LUNG BASES: Small to moderate hiatal hernia. LIVER, GALLBLADDER, AND BILIARY TREE: The liver is normal in size and contour. No focal hepatic lesion or biliary ductal dilatation is present. The gallbladder is unremarkable with no evidence of radiopaque gallstones, gallbladder wall thickening, or obvious pericholecystic inflammatory changes. PANCREAS: No ductal dilatation. SPLEEN: Not enlarged. ADRENAL GLANDS: No adrenal mass. KIDNEYS AND URETERS: The kidneys are symmetric in size and enhance normally. There are multiple bilateral nonobstructing renal calculi measuring up to 7 mm on the left and 6 mm on the right. No ureteral calculus. No hydronephrosis or perinephric fluid collection. BLADDER: Unremarkable. GASTROINTESTINAL TRACT: No small bowel obstruction. The appendix is not visualized. ABDOMINAL WALL: No significant hernia is appreciated. LYMPH NODES: Few prominent lymph nodes in the right lower quadrant mesentery. VASCULAR: Normal caliber abdominal aorta. PELVIC VISCERA: Dilated right gonadal vein. The uterus is anteverted. Trace free fluid in the right adnexa. OSSEOUS STRUCTURES: No destructive bone lesion. CT/CT abdomen pelvis w IV con IMPRESSION: Limited by motion artifact. Bilateral nephrolithiasis. No hydronephrosis. Dilated right gonadal vein.
[2023-04-08 07:48] VITALS: BP 147/67; PULSE 94; RESP 18; TEMP 36.6; O2SAT 99; BMI 29.0
--- NOTE | 2023-04-08 07:56 | ED.ABDPAIN ---
HPI - Abdominal Pain General Chief Complaint: Abdominal Pain Stated Complaint: Fever, vomiting Time Seen by Provider: 04/08/23 07:55 Source: patient Mode of arrival: ambulatory Limitations: no limitations History of Present Illness HPI narrative: Patient is a 37 year old female with a history of anxiety, cyclical vomiting, ureteric calculus, and chronic UTIs presenting to the ED with a 1 day history of abdominal pain, nausea and vomiting. Patient also endorses a recent onset of a fever, chills and body aches. Patient reports the pain has increased in severity overnight and describes it as a constant 10/10 in the epigastric region. The vomitus is described as foamy and yellow-white in color. Prior to arrival the patient has attempted to relieve her symptoms by taking ibuprofen, tylenol, and zofran. Patient also endorses an allergy to ibuprofen and reports that it tears her stomach up . No recent travel and no sick contacts reported. No acute changes in urinary or bowel habits. MD elicited complaint: abdominal pain Pertinent past history: kidney stones and past UTI Onset (ago): day(s) (1) Pain Consistency: constant Location: epigastric Severity: mild Pain scale (0-10): 10 Quality: cramping Radiation: none Migration to: no migration Exacerbating factors: vomiting and medication (Ibuprofen) Relieving factors: nothing Context: history of similar episodes Associated symptoms: nausea, fever and chills Treatments prior to arrival: NSAIDs Related Data Home Medications Medication Instructions Recorded Confirmed hydroxyzine HCl 25 mg tablet 25 mg PO TID PRN anxiety 12/03/22 01/11/23 Previous Rx's Medication Instructions Recorded cefuroxime axetil 250 mg tablet 250 mg PO BID 7 days #14 tabs 01/17/23 promethazine 12.5 mg rectal 12.5 mg ME Q6H PRN nausea and 01/17/23 suppository vomiting #12 ea ondansetron 4 mg disintegrating 4 mg PO Q8H PRN nausea and 01/18/23 tablet vomiting #10 tabs amoxicillin 875 mg-potassium 1 tab PO BID 7 days #14 tabs 02/06/23 clavulanate 125 mg tablet metoprolol succinate 50 mg 50 mg PO DAILY #90 tabs 02/16/23 tablet,extended release 24 hr cyclobenzaprine 10 mg tablet 10 mg PO TID PRN muscle spasm #14 02/23/23 tabs diclofenac sodium 1 % topical gel 2 g topical QID #100 grams 02/27/23 lidocaine 4 % topical patch 1 patch topical DAILY PRN pain #10 02/27/23 ea prednisone 50 mg tablet 50 mg PO DAILY #5 tabs 02/27/23 Allergies Allergy/AdvReac Type Severity Reaction Status Date / Time hydromorphone [Dilaudid] Allergy Unknown hives Verified 04/08/23 07:48 metoclopramide [From Reglan] Allergy Unknown Verified 04/08/23 07:48 ibuprofen [From MOTRIN] AdvReac Mild STOMACH Verified 04/08/23 07:48 UPSET From DILAUDID Allergy Mild HIVES Uncoded 04/08/23 07:48 Motrin Allergy Unknown Unknown Uncoded 04/08/23 07:48 Review of Systems Review of Systems Yes Other (Unable to perform thorough ROS, patient was uncooperative due to symptoms) Constitutional: Reports body ache(s), Reports chills, Reports fever(s) and Denies night sweats Gastrointestinal: Reports abdominal pain, Denies change in bowel habits, Denies change in stool character, Reports nausea and Reports vomiting Genitourinary: Denies hematuria, Denies urinary frequency, Denies dysuria, Denies urinary incontinence, Denies urinary hesitancy and Denies urinary urgency Musculoskeletal: Reports no additional musculoskeletal complaints, Denies numbness and Denies tingling Denies numbness and Denies tingling Psychiatric: Reports no additional psychiatric complaints Endocrine: Reports no additional endocrine complaints Hematologic/Lymphatic: Reports no additional hematologic/lymphatic complaints Allergic/Immunologic: Reports no additional allergic/immunologic complaints PMFSH Past Medical History Attestation statement: The following information was validated with the patient. Source: old records reviewed and nursing notes reviewed Medical History Shortness of breath Sinus tachycardia Cyclical vomiting Anxiety Ureteric calculus Family History Family History Father Heart disease Social History Social History Alcohol intake: never Patient Tobacco Use Status: Never used Tobacco Smoked in Last 30 Days: No Use of substances other than those prescribed or required for medical reasons: No Substance Use Type: Marijuana Advance Directives: No Advance Directives Information Provided: No Patient : No Physical Exam ED Vital Signs: Vital Signs - 24 hr 04/08/23 07:48 04/08/23 08:09 04/08/23 11:24 Temperature 97.8 F 98.8 F 99.8 F Pulse Rate 94 91 96 Respiratory Rate 18 16 18 Blood Pressure 147/67 H 135/74 123/76 Pulse Oximetry 99 98 96 Oxygen Delivery Method Room Air Room Air Room Air BMI result Body Mass Index 29.0 Const General: cooperative, no acute distress, alert and awake Nutritional Appearance: well nourished Orientation/consciousness: patient oriented x3 Limitations: no limitations HENMT Head: Yes normal to inspection and Yes atraumatic Ears: hearing grossly normal bilaterally and external ears normal General nose exam: Normal external nose present, no nasal discharge noted and no epistaxis Face and sinus: Yes normal facial exam, No abrasion and No laceration Mouth: Normal oral and palatal mucosa present, no drooling and no muffled voice Eyes General: appearance normal, both eyes and all related structures Periorbital: periorbital findings normal Eyelids: Yes eyelids normal Conjunctivae: conjunctivae normal Pupils: Equal, round and reactive pupils present EOM: EOMs intact bilaterally Neck Neck: Yes normal visual inspection, Yes full ROM and Yes no lymphadenopathy Chest Chest palpation & inspection: normal inspection of the chest Resp Effort & Inspection: normal respiratory effort and able to speak in complete sentences GI Inspection: Yes normal to inspection Palpation (GI): Soft to palpation, not firm, Tenderness to palpation present (GI) in the epigastrum, no guarding and not rigid Neuro General: patient oriented x3 and moves all extremities Cranial nerves: Yes Equal, round and reactive pupils present Cognition (Neuro): normal cognition Motor exam (neuro): 5/5 motor strength present throughout Sensory Exam: Normal double simultaneous stimulation for sensation Coordination: [id number] test normal Extrem General: Yes normal to inspection, Yes full ROM and Yes capillary refill normal Psych Appearance: grossly normal Mental Status: mental status grossly normal Affect: normal affect Attitude: cooperative Thought process: Normal thought process present Thought content: Normal thought content present Insight: Good insight present (Psych) Medical Decision Making Medical Decision Making MDM Narrative: Patient is a 37 year old assigned female at with a history of anxiety, THC use, and cyclical vomiting presenting to the emergency department today with abdominal pain, nausea, and vomiting. Patient's physical exam showed an actively vomiting individual with diffuse abdominal pain. Patient's blood work showed an elevated WBC count of 27 but was otherwise unremarkable. Patient's urine showed a UTI. Patient's EKG was unremarkable. Patient's CT abdomen/pelvis showed no acute process. Patient's clinical presentation is not consistent with sepsis (@1135). Patient received multiple anti-emetic medications and while they helped some, the patient continued to feel nauseous and vomited. I consulted with GI who recommended admission. I spoke to the hospitalist team who agreed to admission. I explained my physical exam findings as well as all test results to the patient. I answered all questions asked by the patient. Patient verbalized agreement and understanding with this treatment plan and admission. Differential Diagnosis Differential Diagnoses: The differential diagnosis associated with the presentation includes Cyclic vomiting Nausea Vomiting UTI Admission/Observation Consideration of admission/observation: Escalation of care including admission/observation considered Patient admitted. Consult Healthcare Provider Management of the patient was discussed with: Hospitalist (agreed to admission.) and Structures Mechanic (spoke with GI as noted in the MDM Rationale portion of this note.) Lab Data [facility] Lab Attestation statement: I reviewed the patient's lab results. My interpretation of these results are in the MDM Rationale portion of this note. 04/08/23 08:25 04/08/23 08:25 Labs: Lab Results 04/08/23 Range/Units 08:25 WBC 24.7 H (4.8-10.8) X10*3/uL RBC 5.08 (4.20-5.50) X10*6/uL Hgb 13.5 (12.0-16.0) g/dl Hct 39.6 (37.0-47.0) % MCV 78.0 L (80.0-98.0) fL MCH 26.6 L (27.0-33.0) pg MCHC 34.1 (31.0-35.0) g/dl RDW 14.9 (11.0-16.0) % Plt Count 268 (160-400) X10*3/uL MPV 11.3 (9.4-12.3) fL Immature Gran % (Auto) 0.9 H (0.0-0.4) % Neut % (Auto) 86.0 H (45-73) % Lymph % (Auto) 6.9 L (20-40) % [place] % (Auto) 6.0 (2-11) % Eos % (Auto) 0.0 (0-4) % Baso % (Auto) 0.2 (0-2) % Lymph # (Auto) 1.7 (1.2-4.9) X10*3/uL Alpine # (Auto) 1.5 H (0.1-1.2) X10*3/uL Eos # (Auto) 0.0 (0.0-0.4) X10*3/uL Baso # (Auto) 0.1 (0.0-0.2) X10*3/uL Abs Immat Gran (auto) 0.23 H (0.00-0.03) X10*3/uL Absolute Neuts (auto) 21.2 H (2.0-8.3) x10*3/uL Absolute Nucleated RBC 0.000 (0.0-0.012) X10*3/uL Nucleated RBC % (auto) 0.0 (0.0-0.2) /100WBC Smear Tech's Comments VERIFIED Sodium 138 (135-145) mmol/L Potassium 3.9 (3.3-5.1) mmol/L Chloride 104 (96-108) mmol/L Carbon Dioxide 21 L (22-29) mmol/L Anion Gap 17 (12-20) BUN 9 (9-16) mg/dL Creatinine 0.84 (0.5-1.4) mg/dL Estim Creat Clear Calc 100.6 Estimated GFR > 60 Random Glucose 175 H (60-115) mg/dL Calcium 9.4 (8.4-10.2) mg/dL Magnesium 1.8 (1.6-2.6) mg/dL Total Bilirubin 1.5 H (0.0-1.0) mg/dL AST 16 (5-31) U/L ALT 12 (0-31) U/L Alkaline Phosphatase 77 (39-117) U/L Total Protein 7.4 (6.5-8.0) g/dL Albumin 4.2 (3.5-5.0) g/dL Lipase 11 (8-78) U/L Beta HCG, Quant < 2 mIU/mL Urine Color Yellow Urine Appearance Cloudy Urine pH >= 9.0 (5.0-9.0) Ur Specific [place] 1.020 (1.005-1.025) Urine Protein 30 (1+) H (Neg-Trace) mg/dL Urine Glucose (UA) Negative (Negative) mg/dL Urine Ketones 80 (Negative) mg/dL Urine Blood Small (1+) H (Negative) Urine Nitrite Negative (Negative) Ur Leukocyte Esterase Trace H (Negative) Urine RBC >20 H (0-2) /HPF Urine WBC 0-5 (0-5) /HPF Ur Squamous Epith Cells >20 (0-2) /HPF Urine Bacteria 3+ (None Seen) Hyaline Casts 3-5 (0-2) /LPF Urine Opiates Screen Not Detected (Not Detect) Urine Fentanyl Screen Not Detected (Not Detect) Ur Barbiturates Screen Not Detected (Not Detect) Ur Phencyclidine Scrn Not Detected (Not Detect) Ur Amphetamines Screen Not Detected (Not Detect) U Benzodiazepines Scrn Not Detected (Not Detect) Urine Cocaine Screen Not Detected (Not Detect) U Marijuana (THC) Screen POSITIVE H (Not Detect) Influenza Type A (PCR) NEGATIVE (Negative) Influenza Type B (PCR) NEGATIVE (Negative) RSV RNA Qual (PCR) NEGATIVE (Negative) SARS-CoV-2 RNA (RT-PCR) NEGATIVE (Negative) Independent Interpretation I performed an independent interpretation of an: EKG and CT Scan Interpretation: My interpretation is in agreement with the radiologist's impression of this imaging study. EXAMINATION: CT ABDOMEN AND PELVIS WITH CONTRAST CLINICAL INFORMATION: Abdominal pain. COMPARISON: 02/23/2023 TECHNIQUE: Multidetector volumetric images were obtained from the superior aspect of the liver through the pubic symphysis following administration 85 mL of Omnipaque 350 intravenous contrast. Sagittal and coronal reformatted images were obtained on the technologist's workstation. Oral contrast: No This CT examination was performed using dose optimization techniques as appropriate, variously including the following: *Automated exposure control *Adjustment of mA and/or kV according to patient size (this includes techniques or standardized protocols for targeted exams where dose is matched to indication/reason for exam; i.e. extremities or head) *Use of iterative reconstruction technique DLP: 632 mGy-cm FINDINGS: Motion artifact technically degrades image quality. LUNG BASES: Small to moderate hiatal hernia. LIVER, GALLBLADDER, AND BILIARY TREE: The liver is normal in size and contour. No focal hepatic lesion or biliary ductal dilatation is present. The gallbladder is unremarkable with no evidence of radiopaque gallstones, gallbladder wall thickening, or obvious pericholecystic inflammatory changes. PANCREAS: No ductal dilatation. SPLEEN: Not enlarged. ADRENAL GLANDS: No adrenal mass. KIDNEYS AND URETERS: The kidneys are symmetric in size and enhance normally. There are multiple bilateral nonobstructing renal calculi measuring up to 7 mm on the left and 6 mm on the right. No ureteral calculus. No hydronephrosis or perinephric fluid collection. BLADDER: Unremarkable. GASTROINTESTINAL TRACT: No small bowel obstruction. The appendix is not visualized. ABDOMINAL WALL: No significant hernia is appreciated. LYMPH NODES: Few prominent lymph nodes in the right lower quadrant mesentery. VASCULAR: Normal caliber abdominal aorta. PELVIC VISCERA: Dilated right gonadal vein. The uterus is anteverted. Trace free fluid in the right adnexa. OSSEOUS STRUCTURES: No destructive bone lesion. CT/CT abdomen pelvis w IV con IMPRESSION: Limited by motion artifact. Bilateral nephrolithiasis. No hydronephrosis. Dilated right gonadal vein. Dictated By: Vernon Wiseman MD Signed By: Electronically signed by Vernon Wiseman MD 04/08/23 1114 Vent. Rate: 083 BPM Atrial Rate: 083 BPM P-R Int: 134 ms QRS Dur: 082 ms QT Int: 366 ms P-R-T Axes: 033 019 045 degrees QTc Int: 430 ms Normal sinus rhythm with sinus arrhythmia Normal ECG When compared with ECG of 27-NOV-2022 17:46, ME interval has increased Nonspecific T wave abnormality no longer evident in Lateral leads DD/ [id number] Radiology Impression Discussion of test interpretation with radiology: I have reviewed the radiologist's reading. Medications Administered Discontinued Medications Generic Name Dose Route Start Last Admin Trade Name Freq PRN Reason Stop Dose Admin Diphenhydramine HCl 25 mg 04/08/23 08:18 04/08/23 08:23 Diphenhydramine Hcl 50 Mg/Ml Vial IVPUSH 04/08/23 08:19 25 mg ONCE ONE Administration Droperidol 1.25 mg 04/08/23 07:56 04/08/23 08:17 Droperidol 5 Mg/2 Ml Vial IVPUSH 04/08/23 07:57 1.25 mg ONCE ONE Administration Sodium Chloride 1,000 mls @ 999 mls/hr 04/08/23 08:00 04/08/23 09:18 Ns IV 04/08/23 09:00 Infused .Q1H1M KANDY Infusion Promethazine HCl 12.5 mg/ 50.5 mls @ 202 mls/hr 04/08/23 09:24 04/08/23 10:01 Sodium Chloride IV 04/08/23 09:25 Infused ONCE ONE Infusion Ceftriaxone Sodium 1 gm/ 50 mls @ 100 mls/hr 04/08/23 11:23 04/08/23 11:27 Sodium Chloride IV 04/08/23 11:52 100 mls/hr ONCE ONE Administration Iohexol 100 ml 04/08/23 10:44 04/08/23 10:45 Iohexol 350 Mg/Ml 100 Ml Infus..Btl IV 04/08/23 10:45 85 ml ONCE ONE Administration Lorazepam 2 mg 04/08/23 09:24 04/08/23 09:36 Lorazepam 1 Mg Tablet PO 04/08/23 09:25 2 mg ONCE ONE Administration Lorazepam 2 mg 04/08/23 09:43 04/08/23 10:01 Lorazepam 2 Mg/Ml Vial IVPUSH 04/08/23 09:44 2 mg ONCE ONE Administration Ondansetron HCl 4 mg 04/08/23 08:19 04/08/23 08:23 Ondansetron Hcl 4 Mg/2 Ml Vial IVPUSH 04/08/23 08:20 4 mg ONCE ONE Administration Pantoprazole Sodium 40 mg 04/08/23 07:56 04/08/23 08:17 Pantoprazole Sodium 40 Mg/10 Ml Vial IVPUSH 04/08/23 07:57 40 mg ONCE ONE Administration Critical Care Time Critical Care Time Critical Care Time: Yes Total Critical Care Time: 55 Attestation: I spent 55 minutes of Critical Care Time with this patient. This does not include time spent on separately reported billable procedures. Discharge Plan Discharge Clinical Impression: Cyclical vomiting, UTI (urinary tract infection) Patient Disposition: Admitted As Inpatient Prescriptions: No Action metoprolol succinate 50 mg tablet extended release 24 hr 50 mg PO DAILY Qty: 90 1RF promethazine 12.5 mg suppository 12.5 mg ME Q6H PRN (Reason: nausea and vomiting) Qty: 12 0RF cefuroxime axetil 250 mg tablet 250 mg PO BID 7 Days Qty: 14 0RF ondansetron 4 mg tablet,disintegrating 4 mg PO Q8H PRN (Reason: nausea and vomiting) Qty: 10 0RF cyclobenzaprine 10 mg tablet 10 mg PO TID PRN (Reason: muscle spasm) Qty: 14 0RF amoxicillin-pot clavulanate 875-125 mg tablet 1 tab PO BID 7 Days Qty: 14 0RF prednisone 50 mg tablet 50 mg PO DAILY Qty: 5 0RF lidocaine 4 % adhesive patch,medicated 1 patch topical DAILY PRN (Reason: pain) Qty: 10 0RF diclofenac sodium 1 % gel 2 g topical QID Qty: 100 0RF Rx Instructions: apply to single elbow, wrist or hand; for hand includes palm/fingers/back of hand hydroxyzine HCl 25 mg tablet 25 mg PO TID PRN (Reason: anxiety)
[2023-04-08 08:09] VITALS: BP 135/74; PULSE 91; RESP 16; TEMP 37.1; O2SAT 98
[2023-04-08] MEDS: 0.9 % Sodium Chloride 1,000 ML 999 ML IV (08:17)
[2023-04-08] MEDS: droPERidol 5 MG/2 ML VIAL 1.25 MG IVPUSH (08:17)
[2023-04-08] MEDS: Pantoprazole Sodium 40 MG/10 ML VIAL IVPUSH (08:17)
--- NOTE | 2023-04-08 08:17 | PC.NURSE ---
aox4. vss and up to date. pt presents to the ED w/ epigastric abdominal pain/n/v x 2 days. pt seemingly restless as she thrashes her body in the bed while crying. pt actively vomiting - yellow/foamy in nature. no sob/wob noted. respirations even and unlabored. 20gIV placed in the right AC - labs obtained/sent to lab. urine obtained/sent to lab. medications/IVF administered per provider order. effectiveness pending. plan of care ongoing. call licea placed within reach.
[2023-04-08] MEDS: ondansetron HCL 4 MG/2 ML VIAL IVPUSH ×2 (08:23→17:18)
[2023-04-08] MEDS: diphenhydrAMINE HCL 50 MG/ML VIAL 25 MG IVPUSH (08:23)
[2023-04-08 08:32] LABS: Basophils Absolute Auto 0.1 X10*3/uL (0.0-0.2); Basophils Percent Auto 0.2 % (0-2); Hematocrit 39.6 % (37.0-47.0); Hemoglobin 13.5 g/dl (12.0-16.0); Imm Gran Abs Auto 0.23 X10*3/uL (0.00-0.03); Imm Gran Pct Auto 0.9 % (0.0-0.4); Lymphocytes Absolute Auto 1.7 X10*3/uL (1.2-4.9); Lymphocytes Percent Auto 6.9 % (20-40); MANUAL DIFF FLAG SCAN; Mean Corpuscular HGB Conc 34.1 g/dl (31.0-35.0); Mean Corpuscular Hemoglobin 26.6 pg (27.0-33.0); Mean Platelet Volume 11.3 fL (9.4-12.3); Monocytes Absolute Auto 1.5 X10*3/uL (0.1-1.2); Neutrophils Absolute Auto 21.2 x10*3/uL (2.0-8.3); Platelet Count 268 X10*3/uL (160-400); Red Blood Count 5.08 X10*6/uL (4.20-5.50); Red Cell Distribution Width 14.9 % (11.0-16.0); SCAN SMEAR FLAG 1; White Blood Count 24.7 X10*3/uL (4.8-10.8)
[2023-04-08 08:35] LABS: Appearance Urine Cloudy; Color Urine Yellow; Glucose Urine UA Negative (Negative); Leukocyte Esterase Urine Trace (Negative); Nitrite Urine Negative (Negative); PH >= 9.0 (5.0-9.0); UMIC TRIGGER UACC YES; Urine Blood Small (1+) (Negative); Urine Ketones 80 mg/dL (Negative); Urine Protein 30 (1+) mg/dL (Neg-Trace)
[2023-04-08 08:40] LABS: Bacteria Urine 3+ (None Seen); RBC Urine >20 /HPF (0-2); Squamous Epithelial Cell Urine >20 /HPF (0-2); WBC Urine 0-5 /HPF (0-5)
[2023-04-08 08:56] LABS: Alanine Aminotransferase 12 U/L (0-31); Albumin Level 4.2 g/dL (3.5-5.0); Alkaline Phosphatase 77 U/L (39-117); Anion Gap 17 (12-20); Aspartate Amino Transferase 16 U/L (5-31); Bilirubin Total 1.5 mg/dL (0.0-1.0); Blood Urea Nitrogen 9 mg/dL (9-16); Calcium 9.4 mg/dL (8.4-10.2); Carbon Dioxide 21 mmol/L (22-29); Chloride 104 mmol/L (96-108); Creatinine Clr Calc Pharmacy 100.6; Estimated Glomerular Filt Rate > 60; Glucose Random 175 mg/dL (60-115); HCG Quantitative < 2 mIU/mL; Potassium 3.9 mmol/L (3.3-5.1); Sodium 138 mmol/L (135-145); Total Protein 7.4 g/dL (6.5-8.0)
--- NOTE | 2023-04-08 09:24 | ECG_ITS ---
Test Reason : QT PROLONGATION Blood Pressure : / mmHG Vent. Rate : 083 BPM Atrial Rate : 083 BPM P-R Int : 134 ms QRS Dur : 082 ms QT Int : 366 ms P-R-T Axes : 033 019 045 degrees QTc Int : 430 ms Normal sinus rhythm with sinus arrhythmia Normal ECG When compared with ECG of 27-NOV-2022 17:46, Nonspecific T wave abnormality no longer evident in Lateral leads Referred By: Briseyda King Electronically Signed By:ZAFAR WU
[2023-04-08 09:36] LABS: SLIDE REVIEW VERIFIED
[2023-04-08] MEDS: LORazepam 1 MG TABLET 2 MG PO (09:36)
--- NOTE | 2023-04-08 09:39 | PC.NURSE ---
pt still actively vomiting/verbalizing feeling nauseous despite medication administration. pt also stating she is extremely anxious and requesting medication to calm her down. provider notified/aware. medication administered per provider order. respirations remain even and unlabored. call licea placed within reach.
[2023-04-08 09:50] LABS: Influenza A PCR NEGATIVE (Negative); Influenza B PCR NEGATIVE (Negative); Resp Syncy Virus RNA Qual PCR NEGATIVE (Negative); SARS COV2 PCR INHOUSE NEGATIVE (Negative)
[2023-04-08] MEDS: LORazepam 2 MG/ML VIAL IVPUSH (10:01)
--- NOTE | 2023-04-08 10:03 | PC.NURSE ---
pt vomited onto floor post PO ativan administration. pt now medicated w/ IV ativan. effectiveness pending at this time.
[2023-04-08] MEDS: iohexoL 350 MG/ML 100 ML INFUS..BTL IV (10:45)
[2023-04-08 11:02] LABS: Lipase 11 U/L (8-78); Magnesium 1.8 mg/dL (1.6-2.6)
[2023-04-08 11:24] VITALS: BP 123/76; PULSE 96; RESP 18; TEMP 37.7; O2SAT 96
[2023-04-08] MEDS: cefTRIAXone sodium 1 GM in 0.9 % Sodium Chloride 50 ML IV (11:27)
--- NOTE | 2023-04-08 11:29 | PC.NURSE ---
vss and up to date at this time. pt still verbalizing 9/10 epigastric pain and feeling nauseous despite medication administration. abx administered per provider order. pt aware of plan of care at this time. respirations remain even and unlabored. pt resting comfortably w/ the lights dimmed. call licea placed within reach.
[2023-04-08 11:40] LABS: Amphetamine Screen Urine Not Detected (Not Detect); Barbiturates, Urine Not Detected (Not Detect); Benzodiazepines Screen Urine Not Detected (Not Detect); Cannabinoid Screen Urine POSITIVE (Not Detect); Cocaine Screen Urine Not Detected (Not Detect); Fentanyl, urine Not Detected (Not Detect); Opiate Screen Urine Not Detected (Not Detect); Phencyclidine Screen Urine Not Detected (Not Detect)
--- NOTE | 2023-04-08 11:47 | P.HPHOSP_ITS ---
History of Present Illness Date of Service: 04/08/23 Attending physician on admission: Donato [facility] Chief Complaint: Nausea and vomiting Pt is a 37-year-old female with a PMH significant for?cyclic vomiting syndrome, ureteric calculus anxiety, and chronic UTIs who presents to the ED with abdominal pain and?intractable nausea and vomiting since yesterday. Patient states she began experiencing symptoms early in the morning with fever, chills all over body aches. [place] better during the day, but symptoms came back and worsened in the evening. Began experiencing intractable nausea and vomiting, and central, epigastric abdominal pain rated 10/10. Nonradiating, the worsened with vomiting. Patient denies sick contacts or eating anything suspicious. Has had similar symptoms past and presented to the ED on multiple occasions for cyclic vomiting syndrome that has been attributed to marijuana use. Patient currently adamantly denies recent marijuana use, reporting last used 1-2 weeks ago. Tox screen is positive for marijuana. Patient also with a history of chronic UTIs, reports last diagnosed with UTI approximally 1 month ago. Currently denies dysuria or polyuria. Denies chest pain/pressure, palpitations. No headache. Denies diarrhea. No shortness of breath. In the ED pt was afebrile but with elevated heart rate 96 and initially slightly hypertensive. Labs were significant for WBC 24.7, bilirubin 1.5, otherwise grossly unremarkable. Stable H&H. No electrolyte abnormalities. Renal function baseline. UA showing trace amount of leukocyte esterase with 3+ bacteria and large number of epithelial cells, possibly contaminated. CT of abdomen and pelvis found bilateral nephrolithiasis but no hydronephrosis with dilated right gonadal vein. EKG demonstrated normal sinus rhythm with sinus arrhythmia but no evidence of ST elevations or depressions. Pt was treated with droperidol, IVF, pantoprazole, diphenhydramine, ondansetron, lorazepam, promethazine, and ceftriaxone. Pt will be admitted to the hospital under observation for treatment further evaluation of cyclic vomiting syndrome. Review of Systems 2 Review of Systems: Subjective fever and chills Epigastric abdominal pain Nausea and vomiting Denies chest pain/pressure palpitations No shortness a breath Denies headache No polyuria, dysuria [facility] Medical History Shortness of breath Sinus tachycardia Cyclical vomiting Anxiety Ureteric calculus Family History Father Heart disease Social History Household Members: Spouse and Children Housing: House Do you presently have visiting nurse or other home services: No Alcohol intake: never Patient Tobacco Use Status: Never used Tobacco Smoked in Last 30 Days: No Use of substances other than those prescribed or required for medical reasons: Refusing to respond Substance Use Type: Marijuana Currently Displaying Signs/Symptoms of Drug Intoxication Withdrawal: No Any prior treatment program specific to substance use: No Have you been hit, kicked, punched, or otherwise hurt by someone within the past year? If so, by whom?: No Do you feel safe in your current relationship?: Yes Is there a partner from a previous relationship who is making you feel unsafe now?: No Are you made to feel afraid or neglected: No Advance Directives: No Advance Directives Information Provided: No Do you have thoughts of harming others: None Do you have a plan to hurt others: No Plan Recently lost weight without trying: No How much weight loss: 2-13 pounds Eating poorly because of decreased appetite: Yes Nutrition screen score: 2 Nutrition Risks: No Nutritional Risk Patient : No : No Poor oral hygiene: No Meds Allergies Allergy/AdvReac Type Severity Reaction Status Date / Time hydromorphone [Dilaudid] Allergy Unknown hives Verified 04/08/23 07:48 metoclopramide [From Reglan] Allergy Unknown Verified 04/08/23 07:48 ibuprofen [From MOTRIN] AdvReac Mild STOMACH Verified 04/08/23 07:48 UPSET From DILAUDID Allergy Mild HIVES Uncoded 04/08/23 07:48 Motrin Allergy Unknown Unknown Uncoded 04/08/23 07:48 Active Medications: Current Medications Ceftriaxone Sodium 1 gm/ (Sodium Chloride) 50 mls @ 100 mls/hr IV ONCE ONE Stop: 04/08/23 11:52 Last Admin: 04/08/23 11:27 Dose: 100 mls/hr Home Medications Medication Instructions Recorded Confirmed Last Taken Type hydroxyzine HCl 25 mg tablet 25 mg PO TID PRN anxiety 12/03/22 04/08/23 Unknown History tramadol 50 mg tablet 50 mg PO BID PRN Pain 04/08/23 04/08/23 Unknown History Physical Exam 2 Vital Signs and Narrative: Vital Signs: Last Vital Signs Temp 99.8 F 04/08/23 11:24 Pulse 96 04/08/23 11:24 Resp 18 04/08/23 11:24 BP 123/76 04/08/23 11:24 Pulse Ox 96 04/08/23 11:24 O2 Del Method Room Air 04/08/23 11:24 BMI result Body Mass Index 29.0 General: AOx3, restlessness, looks uncomfortabl, in no acute distress Resp: CTA bilaterally CVS: S1, S2, RRR GI: +BS, no distention, central abdomen tener to palpation Skin: Warm, dry Neuro: Cranial nerves II-XII grossly intact bilaterally. Motor grossly intact bilaterally Extremities: No edema Psych: Appropriate affect Results Labs 04/09/23 05:45 04/09/23 05:45 Labs: Laboratory Results - last 24 hr 04/08/23 08:25 MCV 78.0 L MCH 26.6 L MCHC 34.1 RDW 14.9 Plt Count 268 MPV 11.3 Immature Gran % (Auto) 0.9 H Neut % (Auto) 86.0 H Lymph % (Auto) 6.9 L [place] % (Auto) 6.0 Eos % (Auto) 0.0 Baso % (Auto) 0.2 Lymph # (Auto) 1.7 [place] # (Auto) 1.5 H Eos # (Auto) 0.0 Baso # (Auto) 0.1 Abs Immat Gran (auto) 0.23 H Absolute Neuts (auto) 21.2 H Absolute Nucleated RBC 0.000 Nucleated RBC % (auto) 0.0 Smear Tech's Comments VERIFIED Anion Gap 17 Estim Creat Clear Calc 100.6 Estimated GFR > 60 Random Glucose 175 H Calcium 9.4 Magnesium 1.8 Total Bilirubin 1.5 H AST 16 ALT 12 Alkaline Phosphatase 77 Total Protein 7.4 Albumin 4.2 Lipase 11 Beta HCG, Quant < 2 Urine Color Yellow Urine Appearance Cloudy Urine pH >= 9.0 Ur Specific [place] 1.020 Urine Protein 30 (1+) H Urine Glucose (UA) Negative Urine Ketones 80 Urine Blood Small (1+) H Urine Nitrite Negative Ur Leukocyte Esterase Trace H Urine RBC >20 H Urine WBC 0-5 Ur Squamous Epith Cells >20 Urine Bacteria 3+ Hyaline Casts 3-5 Urine Opiates Screen Not Detected Urine Fentanyl Screen Not Detected Ur Barbiturates Screen Not Detected Ur Phencyclidine Scrn Not Detected Ur Amphetamines Screen Not Detected U Benzodiazepines Scrn Not Detected Urine Cocaine Screen Not Detected U Marijuana (THC) Screen POSITIVE H Influenza Type A (PCR) NEGATIVE Influenza Type B (PCR) NEGATIVE RSV RNA Qual (PCR) NEGATIVE SARS-CoV-2 RNA (RT-PCR) NEGATIVE Imaging Radiologist's Impressions: Impressions Abdomen/Pelvis CT 04/08/23 10:45 IMPRESSION: Limited by motion artifact. Bilateral nephrolithiasis. No hydronephrosis. Dilated right gonadal vein. Assessment and Plan (1) Cyclical vomiting: Status: Acute Plan Pt is a 37-year-old female with a PMH significant for?cyclic vomiting syndrome, ureteric calculus anxiety, and chronic UTIs who presents to the ED with abdominal pain and?intractable nausea and vomiting since yesterday. Pt will be admitted to the hospital under observation for treatment further evaluation of cyclic vomiting syndrome. Cyclic vomiting syndrome Possibily secondary to marijuana use, pt denies recent use but tox screen positive; states last used 1-2 weeks ago Has experienced epigastric abd pain and intractable nausea and vomiting since last night Received droperidol, ondansetron promethazine, Benadryl, lorazepam, pantoprazole, and IVF in ED Will give 1 dose of Compazine 5 mg IV Ondansetron p.r.n. Tramadol for pain management Will place on maintenance IVF Pepcid 20 b.i.d. Clear liquid diet for now, advance as tolerated Question of UTI UA showing trace amount of leukocyte esterase with 3+ bacteria and large number of epithelial cells, possibly contaminated Pt denies polyuria, dysuria Will empirically treat with ceftriaxone for now Patient does not meet sepsis criteria: Leukocytosis reactionary, elevated HR secondary to abdominal pain and nausea/vomiting Follow CBC and cultures Anxiety Continue home meds Full Code Attending:?Dr. Doshi DVT Prophylaxis: Lovenox Patient be admitted to the hospital under observation for treatment further evaluation cyclic vomiting syndrome. Patient capable of tolerating p.o. at this time, we will require hospitalization for treatment of IV analgesics and antiemetics for intractable abdominal pain and nausea and vomiting. Quality Stroke Does the patient have a stroke diagnosis?: No VTE Prior VTE?: No VTE Risk Level:: Medical - moderate - high VTE Device Contraindication: Treatment Not Indicated VTE Drug Contraindication: N/A - Med Ordered
[2023-04-08 12:15] LABS: Lactic Acid 1.6 mmol/L (0.5-2.0)
[2023-04-08] MEDS: 0.9 % Sodium Chloride 1,000 ML 100 ML IVCONT ×2 (12:47→23:03)
[2023-04-08] MEDS: Prochlorperazine Edisylate 10 MG/2 ML VIAL 5 MG IVPUSH (12:47)
--- NOTE | 2023-04-08 12:56 | PHA.MEDREC ---
Pharmacy Consult ? Medication Reconciliation Pharmacy has completed the medication reconciliation. Spoke with patient and used claim history. Patient only confirmed three medications she was currently using.
[2023-04-08 16:08] VITALS: BP 136/78; PULSE 90; RESP 18; TEMP 37.2; O2SAT 96
--- NOTE | 2023-04-08 16:16 | PC.NURSE ---
pt ambulated to rest room and accidentally ripped out IV access. new 20gIV placed in the left wrist - patent/intact. IVF continues to infuse at this time.
[2023-04-08] MEDS: Ketorolac Tromethamine 15 MG/ML VIAL IVPUSH (17:18)
--- NOTE | 2023-04-08 17:19 | PC.NURSE ---
pt once again actively vomiting onto floor as well as complaining of an increase in epigastric pain. pt medicated w/ PRN orders at this time. effectiveness pending. pt continues to wait for bed assignment at this time. call licea placed within reach.
--- NOTE | 2023-04-08 17:32 | MHC.CM.ED ---
Addendum entered by Nya Payne 04/08/23 19:07: Pt calm. Declines THRIVE assessment at this time. Addendum entered by Nya Payne 04/08/23 19:04: FLORES signed. Original to patient. Copy to medical records. Addendum entered by Nya Payne 04/08/23 19:01: CM met with patient. Pt placed in observation. FLORES @1900. Pt lives with her and 5 children. Is employed at [employer] in [place]. Uses no DME or services. Declines to complete HCP at this time. Awaiting transport to room 367. D/C plan: Home without services. CM will follow for any discharge needs. Original Note: Attempted to meet with patient in regards to discharge planning. Pt placed to Observation. Pt sleeping soundly with sheets over her head. Will meet when patient wakes.
--- NOTE | 2023-04-08 18:46 | PC.NURSE ---
pt increasingly agitated at this time. pt throwing her body around in the bed, whipping arms around and kicking legs on the bed. pt continuously yelling in ED stating that she is dying and that she needs help. admitting provider notified/aware.
[2023-04-08] MEDS: LORazepam 2 MG/ML VIAL 1 MG IVPUSH (18:55)
[2023-04-08 21:18] VITALS: BP 122/67; PULSE 77; RESP 18; TEMP 36.7; O2SAT 98
[2023-04-08 21:26] VITALS: BMI 29.0
[2023-04-09 03:33] VITALS: BP 128/74; PULSE 92; RESP 18; TEMP 36.4; O2SAT 98
[2023-04-09 06:57] LABS: Hemoglobin 12.6 g/dl (12.0-16.0); Mean Corpuscular HGB Conc 33.2 g/dl (31.0-35.0); Mean Corpuscular Hemoglobin 26.1 pg (27.0-33.0); Mean Corpuscular Volume 78.8 fL (80.0-98.0); Mean Platelet Volume 11.5 fL (9.4-12.3); Platelet Count 233 X10*3/uL (160-400); Red Blood Count 4.82 X10*6/uL (4.20-5.50); Red Cell Distribution Width 15.1 % (11.0-16.0); White Blood Count 12.9 X10*3/uL (4.8-10.8)
[2023-04-09 07:03] LABS: Anion Gap 12 (12-20); Blood Urea Nitrogen 10 mg/dL (9-16); Calcium 8.5 mg/dL (8.4-10.2); Carbon Dioxide 22 mmol/L (22-29); Chloride 110 mmol/L (96-108); Creatinine Clr Calc Pharmacy 122.5; Estimated Glomerular Filt Rate > 60; Glucose Random 83 mg/dL (60-115); Potassium 3.8 mmol/L (3.3-5.1); Sodium 140 mmol/L (135-145)
[2023-04-09 07:34] VITALS: BP 116/54; PULSE 85; RESP 16; TEMP 36.6; O2SAT 98
[2023-04-09] MEDS: Metoprolol Succinate ER 50 MG TAB.ER.24H PO (07:47)
[2023-04-09] MEDS: Famotidine 20 MG TABLET PO (07:47)
[2023-04-09] MEDS: 0.9 % Sodium Chloride 1,000 ML 100 ML IVCONT (07:54)
--- NOTE | 2023-04-09 08:57 | PM.DS ---
DS: Providers Provider Date of Service: 04/09/23 Date of admission: 04/08/23 12:09 Primary care physician: Ana Viveros PA-C DS: Diagnosis Discharge Diagnosis (1) Cyclical vomiting: Status: Acute DS: Summary Hospital Course Hospital Course: Pt is a 37-year-old female with a PMH significant for?cyclic vomiting syndrome, ureteric calculus anxiety, and chronic UTIs who presents to the ED with abdominal pain and?intractable nausea and vomiting since yesterday. Patient states she began experiencing symptoms early in the morning with fever, chills all over body aches. [place] better during the day, but symptoms came back and worsened in the evening. Began experiencing intractable nausea and vomiting, and central, epigastric abdominal pain rated 10/10. Nonradiating, the worsened with vomiting. Patient denies sick contacts or eating anything suspicious. Has had similar symptoms past and presented to the ED on multiple occasions for cyclic vomiting syndrome that has been attributed to marijuana use. Patient currently adamantly denies recent marijuana use, reporting last used 1-2 weeks ago. Tox screen is positive for marijuana. Patient also with a history of chronic UTIs, reports last diagnosed with UTI approximally 1 month ago. Currently denies dysuria or polyuria. Denies chest pain/pressure, palpitations. No headache. Denies diarrhea. No shortness of breath. In the ED pt was afebrile but with elevated heart rate 96 and initially slightly hypertensive. Labs were significant for WBC 24.7, bilirubin 1.5, otherwise grossly unremarkable. Stable H&H. No electrolyte abnormalities. Renal function baseline. UA showing trace amount of leukocyte esterase with 3+ bacteria and large number of epithelial cells, possibly contaminated. CT of abdomen and pelvis found bilateral nephrolithiasis but no hydronephrosis with dilated right gonadal vein. EKG demonstrated normal sinus rhythm with sinus arrhythmia but no evidence of ST elevations or depressions. Pt was treated with droperidol, IVF, pantoprazole, diphenhydramine, ondansetron, lorazepam, promethazine, and ceftriaxone. Pt will be admitted to the hospital under observation for treatment further evaluation of cyclic vomiting syndrome. Hospital course: She presented with cyclical vomiting syndrome in the context of marijuana use and was noted to have a markedly high WBC count of 24,000. Urinalysis was consistent with a UTI. She was observed overnight, hydrated with IV fluids and antiemetics, and given pain medication. By the next day, she was feeling great with no symptoms at all. She tolerated a regular diet and requested to be discharged home. Her WBC count, which was attributed to a reactive process, has decreased to 12,000. While in the hospital, she was prescribed ceftriaxone for the UTI, and upon discharge, she was instructed to take Ceftin for an additional three days. She was advised to avoid marijuana to prevent further recurrence of cyclical vomiting syndrome. Time Attestation Discharge coordination time: Greater than 30 minutes Quality: Safe Use of Opioids Does Pt have an Active Cancer Diagnosis on the Problem List?: No Quality: Stroke Does the patient have a stroke diagnosis?: No Physical Exam Vital Signs: Vital Signs: Last Vital Signs Temp 97.8 F 04/09/23 07:34 Pulse 85 04/09/23 07:34 Resp 16 04/09/23 07:34 BP 116/54 L 04/09/23 07:34 Pulse Ox 98 04/09/23 07:34 O2 Del Method Room Air 04/09/23 07:34 BMI result Body Mass Index 29.0 General: AO X 3, no acute distress Resp: CTA bilateral CVS: S1,S2,RRR GI: +BS, NT, no distention Skin: No rash Neuro: motor grossly intact Psych: appropriate affect DS: Data Data Completed and Pending Labs on day of discharge: Laboratory Results - last 24 hr 04/08/23 04/08/23 04/09/23 08:25 11:50 05:45 WBC 24.7 H 12.9 H RBC 5.08 4.82 Hgb 13.5 12.6 Hct 39.6 38.0 MCV 78.0 L 78.8 L MCH 26.6 L 26.1 L MCHC 34.1 33.2 RDW 14.9 15.1 Plt Count 268 233 MPV 11.3 11.5 Immature Gran % (Auto) 0.9 H Neut % (Auto) 86.0 H Lymph % (Auto) 6.9 L [place] % (Auto) 6.0 Eos % (Auto) 0.0 Baso % (Auto) 0.2 Lymph # (Auto) 1.7 [place] # (Auto) 1.5 H Eos # (Auto) 0.0 Baso # (Auto) 0.1 Abs Immat Gran (auto) 0.23 H Absolute Neuts (auto) 21.2 H Absolute Nucleated RBC 0.000 0.000 Nucleated RBC % (auto) 0.0 0.0 Smear Tech's Comments VERIFIED Sodium 140 Potassium 3.8 Chloride 110 H Carbon Dioxide 22 Anion Gap 12 BUN 10 Creatinine 0.69 Estim Creat Clear Calc 122.5 Estimated GFR > 60 Random Glucose 83 Lactic Acid 1.6 Calcium 8.5 D Magnesium 1.8 Lipase 11 Urine Opiates Screen Not Detected Urine Fentanyl Screen Not Detected Ur Barbiturates Screen Not Detected Ur Phencyclidine Scrn Not Detected Ur Amphetamines Screen Not Detected U Benzodiazepines Scrn Not Detected Urine Cocaine Screen Not Detected U Marijuana (THC) Screen POSITIVE H Influenza Type A (PCR) NEGATIVE Influenza Type B (PCR) NEGATIVE RSV RNA Qual (PCR) NEGATIVE SARS-CoV-2 RNA (RT-PCR) NEGATIVE Discharge Plan Discharge Anticipated Discharge Date/Time: 04/09/23 08:32 Patient Disposition: Home, Self-Care Discharge Diagnosis: Cyclical vomitting, UTI Referrals: Ana Viveros PA-C [Primary Care Provider] - 1 Week Discharge Medications: New cefuroxime axetil 250 mg tablet 250 mg PO BID Qty: 6 0RF Continued metoprolol succinate 50 mg tablet extended release 24 hr 50 mg PO DAILY Qty: 90 1RF tramadol 50 mg Tablet 50 mg PO BID PRN (Reason: Pain) hydroxyzine HCl 25 mg tablet 25 mg PO TID PRN (Reason: anxiety) Discharge Orders: Discharge Order (Routine); Ordered 04/09/23 Ordered By: Donato Doshi Diet: Advance to usual diet Activity on Discharge: As tolerated Stand Alone Forms: Patient Portal Discharge page Care Plan Goals: recovery from vomitting and uit Health Concerns: Cyclical vomiting syndrome associated with marijuana uti Plan of Treatment: avoid marijuana take cefuroxime for uti follow up with your docotor in a week, call for appointment Assessment: see above
--- NOTE | 2023-04-09 09:57 | MHC.CM.PN ---
PT WILL DC HOME TODAY WITH NO SERVICES PT TO ARRANGE TRANSPORT
== END 2023-04-09 09:40 | disposition home or self-care (01) ==
LOC: HO.ED 12:05 → HO.EDOVER 12:19 → HO.S3 18:50
PROVIDERS: Physician Assistant Medical; Admitting Provider Student in an Organized Health Care Education/Training Program; Emergency Provider Emergency Medicine; PCP Physician Assistant; Visit Provider Internal Medicine
DX: R11.15 Cyclical vomiting syndrome unrelated to migraine (principal); N39.0 Urinary tract infection, site not specified; R11.2 Nausea with vomiting, unspecified; R10.9 Unspecified abdominal pain; R50.9 Fever, unspecified; R94.31 Abnormal electrocardiogram [ECG] [EKG]; R10.13 Epigastric pain; F41.9 Anxiety disorder, unspecified
CPT/HCPCS: 0241U; 36415; 74177; 80048; 80053; 80307; 81001; 83605; 83690; 83735; 84702; 85025; 85027; 87040; 93005; 96361; 96365; 96367; 96375; 96376; 99221; 99285; C9113; J0696; J0737; J1200; J1790; J1885; J2060; J2405; J2550; Q9967

== ENCOUNTER → 2023-04-08 09:24 | Outpatient (BNV) | payer OTHER, SELFPAY | PROVIDERS: Admitting Provider Student in an Organized Health Care Education/Training Program; Emergency Provider Emergency Medicine; PCP Physician Assistant; Visit Provider Internal Medicine | DX: I45.81 Long QT syndrome (principal) | CPT/HCPCS: 93010 ==

== ENCOUNTER → 2023-04-08 12:09 | Outpatient (BNV) | payer OTHER, SELFPAY | PROVIDERS: Admitting Provider Student in an Organized Health Care Education/Training Program; Emergency Provider Emergency Medicine; PCP Physician Assistant; Visit Provider Student in an Organized Health Care Education/Training Program | DX: R11.15 Cyclical vomiting syndrome unrelated to migraine (principal) | CPT/HCPCS: 99222; 99238 ==

== ENCOUNTER 2023-05-15 09:49 | Emergency (ER) | payer SELFPAY ==
--- NOTE | ~2023-05-15 | CT_ITS ---
EXAMINATION: CT ABDOMEN AND PELVIS WITH CONTRAST CLINICAL INFORMATION: Right upper quadrant abdominal pain COMPARISON: CT abdomen pelvis 03/30/2023 TECHNIQUE: Multidetector volumetric images were obtained from the superior aspect of the liver through the pubic symphysis following administration 85 mL of Omnipaque 350 intravenous contrast. Sagittal and coronal reformatted images were obtained on the technologist's workstation. Oral contrast: No This CT examination was performed using dose optimization techniques as appropriate, variously including the following: *Automated exposure control *Adjustment of mA and/or kV according to patient size (this includes techniques or standardized protocols for targeted exams where dose is matched to indication/reason for exam; i.e. extremities or head) *Use of iterative reconstruction technique DLP: 630 mGy-cm FINDINGS: LUNG BASES: Unremarkable. ABDOMINAL AND PELVIC WALL: Unremarkable. LIVER AND BILIARY TREE: Few scattered subcentimeter hepatic cysts. GALLBLADDER: Unremarkable. PANCREAS: Unremarkable. SPLEEN: Unremarkable. ADRENAL GLANDS: Unremarkable. KIDNEYS AND URETERS: Bosniak 2 subcentimeter bilateral renal hypodensities, no follow-up imaging recommended. Multiple nonobstructing bilateral renal stones measuring up to 4 mm in the left mid renal pole, 721 Hounsfield units, 9 cm from the posterior axillary line, previously measuring 5 mm. No hydronephrosis or obstructive ureterolithiasis identified. GASTROINTESTINAL TRACT: Small hiatal hernia. Colonic diverticulosis without evidence of diverticulitis. The appendix is not identified and may be surgically absent. VASCULAR: Unremarkable. LYMPH NODES/PERITONEUM: No lymphadenopathy. FREE FLUID: Trace simple free fluid in the pelvis which may be within physiologic limits of volume. BLADDER: Unremarkable. PELVIC VISCERA: Uterus is retroflexed in position. OSSEOUS STRUCTURES: Unremarkable. CT/CT abdomen pelvis w IV con IMPRESSION: 1. Multiple nonobstructing bilateral renal stones measuring up to 4 mm in the left mid renal pole. No hydronephrosis or obstructive ureterolithiasis identified. 2. Trace simple free fluid in the pelvis which may be within physiologic limits of volume.
--- NOTE | ~2023-05-15 | US_ITS ---
EXAMINATION: US ABDOMEN LIMITED CLINICAL INFORMATION: Right upper quadrant pain. COMPARISON: None available. TECHNIQUE: Real-time imaging of the right upper quadrant abdominal viscera. FINDINGS: GALLBLADDER: Normal. The gallbladder is physiologically distended without evidence of stones, sludge, polyps, wall thickening or pericholecystic fluid. COMMON BILE DUCT: Normal in caliber measuring 0.3 cm in diameter. FREE FLUID: None. US/US abdomen limited IMPRESSION: Unremarkable exam of the gallbladder and common bile duct, without evidence of cholelithiasis or acute cholecystitis.
[2023-05-15 09:52] VITALS: BP 119/72; PULSE 106; RESP 20; TEMP 36.3; O2SAT 98; BMI 29.5
--- NOTE | 2023-05-15 10:13 | ED_ITS ---
HPI - Abdominal Pain General Chief Complaint: Abdominal Pain Stated Complaint: Right side abdominal pain Time Seen by Provider: 05/15/23 10:02 Source: patient Mode of arrival: ambulatory Limitations: no limitations History of Present Illness HPI narrative: 37-year-old female history of anxiety, retearing calculus, chronic UTIs presenting to the emergency department with complaints of right-sided abdominal pain particularly in the right upper quadrant with radiation to back and right shoulder, patient reports 10/10 pain with associated nausea and vomiting. Patient denies concerns for states ?I am operated ?. Patient still has her appendix. Patient reports pain started yesterday and has been present ever since, he reports it is intermittent and severe in nature, reports it feels like somebody stabbing her in her right upper quadrant. Denies fevers, chills, vomiting, diarrhea, headache, vision changes, dizziness, weakness. Related Data Home Medications ?Medication ?Instructions ?Recorded ?Confirmed hydroxyzine HCl 25 mg tablet 25 mg PO TID PRN anxiety 12/03/22 04/08/23 tramadol 50 mg tablet 50 mg PO BID PRN Pain 04/08/23 04/08/23 Previous Rx's ?Medication ?Instructions ?Recorded metoprolol succinate 50 mg 50 mg PO DAILY #90 tabs 02/16/23 tablet,extended release 24 hr cefuroxime axetil 250 mg tablet 250 mg PO BID #6 tabs 04/09/23 ketorolac 10 mg tablet 10 mg PO TID PRN pain 5 days #15 05/15/23 tabs prednisone 20 mg tablet 20 mg PO DAILY 3 days #3 tabs 05/15/23 tamsulosin 0.4 mg capsule (Flomax) 0.4 mg PO DAILY 2 weeks #14 caps 05/15/23 Allergies Allergy/AdvReac Type Severity Reaction Status Date / Time hydromorphone [Dilaudid] Allergy Unknown hives Verified 05/15/23 09:55 metoclopramide [From Reglan] Allergy Unknown Verified 05/15/23 09:55 ibuprofen [From MOTRIN] AdvReac Mild STOMACH Verified 05/15/23 09:55 UPSET Review of Systems Review of Systems Yes all other systems are reviewed and are negative PMFSH Past Medical History Attestation statement: The following information was validated with the patient. 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 Oriented X3.? No acute cardiopulmonary distress.? Patient appears uncomfortable however Head: Normocephalic, atraumatic, no step-offs or deformities Eyes: Pupils equal, round and reactive to light.?? Neck: Normal inspection.? Neck supple.? CVS: Normal heart rate and rhythm.? Pulses normal.? Respiratory: No respiratory distress.? Breath sounds normal.? Abdomen: Soft and + positive Day sign and right upper quadrant tenderness to palpation there is also mild tenderness to the right lower quadrant. Normoactive bowel sounds Skin: Skin warm and dry.? Normal skin color.? Normal skin turgor.? Extremities: No lower extremity edema.? No calf ttp. 5/5 strength to bilateral upper and lower extremities Neuro: Oriented X 3.? No motor deficit.? No sensory deficit. CN 2-12 intact Course Reevaluation(s) Reevaluation #1: CBC unremarkable. Chemistry no acute findings requiring intervention. Lipase normal. Negative beta hCG. UA pending. CT scan pending Time: 13:21 Reevaluation #2: Patient was trying to leave against medical advice, she states everything is taking too long and she does not want to be here any longer. Time: 13:30 Reevaluation #3: Patient decided to stay for imaging. CT scan multiple nonobstructing bilateral renal stones measuring up to 4 mm in the left mid renal pole. No hydronephrosis or obstructive urolithiasis identified. Trace fluid in the pelvis which may be physiologic. Again patient has history of tubal, reports she can not be . Ultrasound of right upper quadrant with unremarkable exam no evidence of cholelithiasis or acute cholecystitis. Patient again upset about weight, explain to her all imaging is taking a very long time. Will discharge her home with Toradol, prednisone as well as Flomax. I did discuss this case with Urology. Urology agrees with this plan advised outpatient follow-up. Educated patient on diagnosis and treatment plan, answered all question, patient verbalizes understanding. At this time patient will be discharged home, advised to return with new or worsening symptoms. Educated on worrisome signs and symptoms and when to return. At this time I feel comfortable discharge home. Time: 17:13 Medical Decision Making Medical Decision Making [facility] Narrative: 1016 37-year-old female presents with severe right-sided abdominal pain right upper quadrant greater than right lower quadrant started yesterday. Intermittent severe stabbing in nature. On exam patient appears uncomfortable positive Day sign and mild discomfort to right lower quadrant as well. History and physical exam concerning for cholecystitis positive Day's and boas sign. Also slightly suspicious for appendicitis. Unlikely ovarian torsion, ectopic , acute abdomen, obstruction, pancreatitis, choledocholithiasis, cholangitis, diverticulitis. Plan at this time will obtain labs, urine, imaging. Pain control. Differential Diagnosis Differential Diagnoses: The differential diagnosis associated with the presentation includes History and physical exam concerning for cholecystitis positive Day's and boas sign. Also slightly suspicious for appendicitis. Unlikely ovarian torsion, ectopic , acute abdomen, obstruction, pancreatitis, choledocholithiasis, cholangitis, diverticulitis. Admission/Observation Consideration of admission/observation: Escalation of care including admission/observation considered Possible Consult Healthcare Provider Management of the patient was discussed with: Operation Shift Supervisor (urology ) Lab Data [facility] Lab Attestation statement: I reviewed the patient's lab results. 05/15/23 10:22 05/15/23 10:22 Labs: Lab Results 05/15/23 05/15/23 Range/Units 10:22 15:51 WBC 8.6 (4.8-10.8) X10*3/uL RBC 5.37 (4.20-5.50) X10*6/uL Hgb 14.1 (12.0-16.0) g/dl Hct 42.2 (37.0-47.0) % MCV 78.6 L (80.0-98.0) fL MCH 26.3 L (27.0-33.0) pg MCHC 33.4 (31.0-35.0) g/dl RDW 15.1 (11.0-16.0) % Plt Count 255 (160-400) X10*3/uL MPV 11.0 (9.4-12.3) fL Immature Gran % (Auto) 0.2 (0.0-0.4) % Neut % (Auto) 57.6 (45-73) % Lymph % (Auto) 32.0 (20-40) % Arthur % (Auto) 9.1 (2-11) % Eos % (Auto) 0.7 (0-4) % Baso % (Auto) 0.4 (0-2) % Lymph # (Auto) 2.7 (1.2-4.9) X10*3/uL Arthur # (Auto) 0.8 (0.1-1.2) X10*3/uL Eos # (Auto) 0.1 (0.0-0.4) X10*3/uL Baso # (Auto) 0.0 (0.0-0.2) X10*3/uL Abs Immat Gran (auto) 0.02 (0.00-0.03) X10*3/uL Absolute Neuts (auto) 4.9 (2.0-8.3) x10*3/uL Absolute Nucleated RBC 0.000 (0.0-0.012) X10*3/uL Nucleated RBC % (auto) 0.0 (0.0-0.2) /100WBC Sodium 139 (135-145) mmol/L Potassium 3.6 (3.3-5.1) mmol/L Chloride 109 H (96-108) mmol/L Carbon Dioxide 22 (22-29) mmol/L Anion Gap 12 (12-20) BUN 11 (9-16) mg/dL Creatinine 0.76 (0.5-1.4) mg/dL Estim Creat Clear Calc 112.0 Estimated GFR > 60 Random Glucose 102 (60-115) mg/dL Calcium 9.2 D (8.4-10.2) mg/dL Magnesium 2.1 (1.6-2.6) mg/dL Total Bilirubin 0.5 (0.0-1.0) mg/dL AST 11 (5-31) U/L ALT 10 (0-31) U/L Alkaline Phosphatase 62 (39-117) U/L Troponin I High Sens < 2.7 (<3.5-17.0) ng/L Total Protein 7.0 (6.5-8.0) g/dL Albumin 4.0 (3.5-5.0) g/dL Lipase 13 (8-78) U/L Beta HCG, Quant < 2 mIU/mL Urine Color Yellow Urine Appearance Hazy Urine pH 8.5 (5.0-9.0) Ur Specific [place] 1.020 (1.005-1.025) Urine Protein Trace (Neg-Trace) mg/dL Urine Glucose (UA) Negative (Negative) mg/dL Urine Ketones Negative (Negative) mg/dL Urine Blood Negative (Negative) Urine Nitrite Negative (Negative) Ur Leukocyte Esterase Negative (Negative) Independent Interpretation I performed an independent interpretation of an: Ultrasound (US/US abdomen limited IMPRESSION: Unremarkable exam of the gallbladder and common bile duct, without evidence of cholelithiasis or acute cholecystitis.) and CT Scan ( CT/CT abdomen pelvis w IV con IMPRESSION: 1. Multiple nonobstructing bilateral renal stones measuring up to 4 mm in the left mid renal pole. No hydronephrosis or obstructive ureterolithiasis identified. 2. Trace simple free fluid in the pelvis which may be within physiologic limits of volume. ) Radiology Impression Discussion of test interpretation with radiology: I have reviewed the radiologist's reading. External Record Review External record reviewed: Inpatient record, Office record, Outpatient record, Prior outpatient labs, Prior outpatient radiology, Primary care record and Outside ED record Prescription Management I considered prescription management with: Pain Medication Chronic Conditions Patient?s care impacted by: Other (Anxiety, recurrent UTIs, ureteric calculus) Medications Administered Discontinued Medications Generic Name Dose Route Start Last Admin Trade Name Freq PRN Reason Stop Dose Admin Iohexol 85 ml 05/15/23 11:36 05/15/23 11:37 Iohexol 350 Mg/Ml 100 Ml Infus..Btl IV 05/15/23 11:37 85 ml ONCE ONE Administration Ketorolac Tromethamine 30 mg 05/15/23 10:13 05/15/23 10:19 Ketorolac Tromethamine 30 Mg/Ml Vial IVPUSH 05/15/23 10:14 30 mg ONCE ONE Administration Ketorolac Tromethamine 10 mg 05/15/23 15:25 05/15/23 15:50 Ketorolac Tromethamine 10 Mg Tablet PO 05/15/23 15:26 10 mg ONCE ONE Administration Critical Care Time Critical Care Time Critical Care Time: Yes Total Critical Care Time: 35 Attestation: I attest to this time spent taking care of the patient, obtaining history, physical, reviewing labs, imaging, speaking to my attending Discharge Plan Discharge Clinical Impression: Abdominal pain, Nausea, Kidney calculi, Acute right flank pain Patient Disposition: Left Against Medical Advice Instructions: Kidney Stones (ED), Acute Nausea and Vomiting (ED), Abdominal Pain (ED) Additional Instructions: Take your medications as prescribed. If you were prescribed antibiotics today, it is important that you take your medication to their entirety, do not skip any doses, do not finish them early. Follow-up with your primary care provider this week. Return to the emergency department with new or worsening symptoms. Such as fevers, chills, chest pain, shortness of breath, nausea, vomiting, dizziness, headache, vision changes, lethargy In case of emergency call 911 Toradol has been sent to your pharmacy, you tolerated this well in the department. Please take this as prescribed do not take this with ibuprofen, or other NSAIDs, do not mix this with alcohol. Side effects of this medication including increased risk for bleeding and possible kidney injury. You were noted to have kidney stones on your CT scan. Please drink plenty of fluids. Take your medications as prescribed and follow-up with urology. Return with new or worsening symptoms. US/US abdomen limited IMPRESSION: Unremarkable exam of the gallbladder and common bile duct, without evidence of cholelithiasis or acute cholecystitis. CT/CT abdomen pelvis w IV con IMPRESSION: 1. Multiple nonobstructing bilateral renal stones measuring up to 4 mm in the left mid renal pole. No hydronephrosis or obstructive ureterolithiasis identified. 2. Trace simple free fluid in the pelvis which may be within physiologic limits of volume. Prescriptions: New prednisone 20 mg tablet 20 mg PO DAILY 3 Days Qty: 3 0RF ketorolac 10 mg tablet 10 mg PO TID PRN (Reason: pain) 5 Days Qty: 15 0RF tamsulosin [Flomax] 0.4 mg capsule 0.4 mg PO DAILY 14 Days Qty: 14 0RF No Action metoprolol succinate 50 mg tablet extended release 24 hr 50 mg PO DAILY Qty: 90 1RF tramadol 50 mg Tablet 50 mg PO BID PRN (Reason: Pain) cefuroxime axetil 250 mg tablet 250 mg PO BID Qty: 6 0RF hydroxyzine HCl 25 mg tablet 25 mg PO TID PRN (Reason: anxiety) Referrals: [facility] [Provider Group] - 2 days Print Language: Arabic
--- NOTE | 2023-05-15 10:14 | ECG_ITS ---
Test Reason : R SHOULDER PAIN Blood Pressure : / mmHG Vent. Rate : 063 BPM Atrial Rate : 063 BPM P-R Int : 138 ms QRS Dur : 080 ms QT Int : 406 ms P-R-T Axes : 019 013 032 degrees QTc Int : 415 ms Normal sinus rhythm with sinus arrhythmia Normal ECG When compared with ECG of 08-APR-2023 09:31, No significant change was found Referred By: Niki Boles Electronically Signed By:MARIAELENA DOE MD
[2023-05-15] MEDS: Ketorolac Tromethamine 30 MG/ML VIAL IVPUSH (10:19)
[2023-05-15 10:26] LABS: MANUAL DIFF FLAG NO
[2023-05-15 10:27] LABS: Basophils Percent Auto 0.4 % (0-2); Eosinophils Absolute Auto 0.1 X10*3/uL (0.0-0.4); Eosinophils Percent Auto 0.7 % (0-4); Hematocrit 42.2 % (37.0-47.0); Hemoglobin 14.1 g/dl (12.0-16.0); Imm Gran Abs Auto 0.02 X10*3/uL (0.00-0.03); Imm Gran Pct Auto 0.2 % (0.0-0.4); Lymphocytes Absolute Auto 2.7 X10*3/uL (1.2-4.9); Mean Corpuscular HGB Conc 33.4 g/dl (31.0-35.0); Mean Corpuscular Hemoglobin 26.3 pg (27.0-33.0); Mean Corpuscular Volume 78.6 fL (80.0-98.0); Monocytes Absolute Auto 0.8 X10*3/uL (0.1-1.2); Monocytes Percent Auto 9.1 % (2-11); Neutrophils Absolute Auto 4.9 x10*3/uL (2.0-8.3); Neutrophils Percent Auto 57.6 % (45-73); Platelet Count 255 X10*3/uL (160-400); Red Blood Count 5.37 X10*6/uL (4.20-5.50); Red Cell Distribution Width 15.1 % (11.0-16.0); White Blood Count 8.6 X10*3/uL (4.8-10.8)
[2023-05-15 11:09] LABS: Alanine Aminotransferase 10 U/L (0-31); Alkaline Phosphatase 62 U/L (39-117); Anion Gap 12 (12-20); Aspartate Amino Transferase 11 U/L (5-31); Bilirubin Total 0.5 mg/dL (0.0-1.0); Blood Urea Nitrogen 11 mg/dL (9-16); Calcium 9.2 mg/dL (8.4-10.2); Carbon Dioxide 22 mmol/L (22-29); Chloride 109 mmol/L (96-108); Estimated Glomerular Filt Rate > 60; Glucose Random 102 mg/dL (60-115); HCG Quantitative < 2 mIU/mL; Lipase 13 U/L (8-78); Magnesium 2.1 mg/dL (1.6-2.6); Potassium 3.6 mmol/L (3.3-5.1); Sodium 139 mmol/L (135-145); Troponin-I High Sensitivity < 2.7 ng/L (<3.5-17.0)
[2023-05-15] MEDS: iohexoL 350 MG/ML 100 ML INFUS..BTL 85 ML IV (11:37)
--- NOTE | 2023-05-15 11:59 | MHC.EDTECH ---
attempted to do the EKG, patient refused stating that she was not here for any heart problem and that she just had pain, she did not want the EKG done
[2023-05-15] MEDS: Ketorolac Tromethamine 10 MG TABLET PO (15:50)
[2023-05-15 16:11] LABS: Color Urine Yellow; Glucose Urine UA Negative (Negative); Leukocyte Esterase Urine Negative (Negative); Nitrite Urine Negative (Negative); PH 8.5 (5.0-9.0); Urine Blood Negative (Negative); Urine Ketones Negative (Negative); Urine Protein Trace mg/dL (Neg-Trace)
[2023-05-15 16:19] VITALS: BP 116/60; PULSE 69; RESP 16; TEMP 36.7; O2SAT 100
[2023-05-15 16:58] LABS: Appearance Urine Hazy
[2023-05-15] MEDS: predniSONE 20 MG TABLET PO (17:23)
[2023-05-15] MEDS: Tamsulosin HCL 0.4 MG CAPSULE PO (17:23)
[2023-05-15 17:27] VITALS: BP 116/60; PULSE 69; RESP 16; TEMP 36.7; O2SAT 100
== END 2023-05-15 17:50 | disposition left against medical advice (07) ==
PROVIDERS: Physician Assistant; Emergency Provider Student in an Organized Health Care Education/Training Program; PCP Physician Assistant
DX: N20.0 Calculus of kidney (principal); R10.11 Right upper quadrant pain; R11.2 Nausea with vomiting, unspecified; M25.511 Pain in right shoulder; I49.8 Other specified cardiac arrhythmias; M54.50 Low back pain, unspecified; R93.49 Abnormal radiologic findings on diagnostic imaging of other urinary organs; Z79.899 Other long term (current) drug therapy
CPT/HCPCS: 36415; 74177; 76705; 80053; 81003; 83690; 83735; 84484; 84702; 85025; 93005; 96374; 99284; 99285; J1885; Q9967

== ENCOUNTER → 2023-05-15 10:14 | Outpatient (BNV) | payer SELFPAY | PROVIDERS: Emergency Provider Student in an Organized Health Care Education/Training Program; PCP Physician Assistant; Visit Provider Internal Medicine Cardiovascular Disease | DX: I49.8 Other specified cardiac arrhythmias (principal) | CPT/HCPCS: 93010 ==

== ENCOUNTER 2023-06-24 05:58 | Emergency (ER) | payer OTHER, SELFPAY ==
--- NOTE | 2023-06-24 | ECG_ITS ---
Test Reason : ABD PAIN Blood Pressure : / mmHG Vent. Rate : 085 BPM Atrial Rate : 085 BPM P-R Int : 126 ms QRS Dur : 076 ms QT Int : 504 ms P-R-T Axes : 045 053 068 degrees QTc Int : 599 ms Sinus rhythm with marked sinus arrhythmia Otherwise normal ECG When compared with ECG of 15-MAY-2023 16:02, QT has lengthened Referred By: Generic ED Physician Electronically Signed By:MARIAELENA DOE MD
[2023-06-24 06:21] VITALS: BP 137/109; PULSE 89; RESP 16; TEMP 36.8; O2SAT 97; BMI 27.7
--- NOTE | 2023-06-24 06:40 | PC.NURSE ---
pt unable to tolerate blood work at this time; restless tearful. ekg obtained. pharmacist in charge owner aware.
--- NOTE | 2023-06-24 07:36 | ED.GENADULT ---
HPI - General Adult General Chief complaint: General Medical Stated complaint: stomach pain, n/v Time Seen by Provider: 06/24/23 07:36 History of Present Illness HPI narrative: The patient is a 37-year-old female with a history of multiple ER visits for abdominal pains. She has a history of kidney stones. Within the last year the patient has had 9 CT scans of the abdomen and pelvis. These have been done both episodes of abdominal pain associated with significant vomiting and also for evaluation of kidney stone issues. She is listed as having a diagnosis of cyclic vomiting syndrome in addition to her kidney stones. Patient says that she had alcohol 2 days ago on Wednesday and has not felt well since then. She has had diffuse nausea, vomiting, abdominal pains, and body aches since yesterday morning. She has been unable to take her anxiety medication (hydroxyzine) and she has also been unable to take her usual metoprolol prescribed for tachycardia that seems to be related to her cyclic vomiting syndrome or possibly postural orthostatic tachycardia syndrome. Related Data Home Medications ?Medication ?Instructions ?Recorded ?Confirmed hydroxyzine HCl 25 mg tablet 25 mg PO TID PRN anxiety 12/03/22 04/08/23 tramadol 50 mg tablet 50 mg PO BID PRN Pain 04/08/23 04/08/23 Previous Rx's ?Medication ?Instructions ?Recorded metoprolol succinate 50 mg 50 mg PO DAILY #90 tabs 02/16/23 tablet,extended release 24 hr cefuroxime axetil 250 mg tablet 250 mg PO BID #6 tabs 04/09/23 ketorolac 10 mg tablet 10 mg PO TID PRN pain 5 days #15 05/15/23 tabs prednisone 20 mg tablet 20 mg PO DAILY 3 days #3 tabs 05/15/23 tamsulosin 0.4 mg capsule (Flomax) 0.4 mg PO DAILY 2 weeks #14 caps 05/15/23 potassium chloride 20 mEq 40 meq (2 x 20 mEq) PO BID #14 tabs 06/24/23 tablet,extended release Allergies Allergy/AdvReac Type Severity Reaction Status Date / Time hydromorphone [Dilaudid] Allergy Unknown hives Verified 06/24/23 06:23 metoclopramide [From Reglan] Allergy Unknown Verified 06/24/23 06:23 ibuprofen [From MOTRIN] AdvReac Mild STOMACH Verified 06/24/23 06:23 UPSET Review of Systems Review of Systems: Yes all other systems are reviewed and are negative [facility] Past Medical History Medical History Shortness of breath Sinus tachycardia Cyclical vomiting Anxiety Ureteric calculus Family History Family History Father Heart disease Social History Social History Household Members: Spouse and Children Housing: House Do you presently have visiting nurse or other home services: No Alcohol intake: former Patient Tobacco Use Status: Never used Tobacco Substance Use Type: Marijuana Advance Directives: No Do you have a plan to hurt others: No Plan Physical Exam ED Vital Signs: Vital Signs - 24 hr 06/24/23 06:21 06/24/23 14:08 Temperature 98.3 F 98.1 F Pulse Rate 89 78 Respiratory Rate 16 18 Blood Pressure 137/109 H 124/81 Pulse Oximetry 97 97 Oxygen Delivery Method Room Air Room Air BMI result Body Mass Index 27.7 Const Other: The patient is a 37-year-old female who was awake and alert. She seemed anxious and agitated and complained of significant distress. She seemed restless. HENMT Other: Face is symmetrical. Mucous membranes moist. Eyes Other: Pupils are round equal, conjunctivae are clear Neck Other: Moving her neck easily Resp Effort & Inspection: normal respiratory effort Auscultation: clear to auscultation bilaterally Cardio Rate: regular rate Rhythm: regular rhythm Heart sounds: S1 normal heart sound present and S2 normal heart sound present GI Other: Diffuse abdominal tenderness without rebound or guarding Skin Other: Skin is dry and unremarkable Neuro Other: The patient was awake and alert but with a anxious affect. Speech was clear. Face symmetrical. Moving extremities normally. Gait normal. Extrem Other: No peripheral edema Medications Administered Discontinued Medications Generic Name Dose Route Start Last Admin Trade Name Freq PRN Reason Stop Dose Admin Diphenhydramine HCl 50 mg 06/24/23 07:40 06/24/23 07:54 Diphenhydramine Hcl 50 Mg/Ml Vial IVPUSH 06/24/23 07:41 50 mg ONCE ONE Administration Diphenhydramine HCl 50 mg 06/24/23 08:24 06/24/23 08:37 Diphenhydramine Hcl 50 Mg/Ml Vial IVPUSH 06/24/23 08:25 50 mg ONCE ONE Administration Droperidol 2.5 mg 06/24/23 07:40 06/24/23 07:54 Droperidol 5 Mg/2 Ml Vial IVPUSH 06/24/23 07:41 2.5 mg ONCE ONE Administration Sodium Chloride 1,000 mls @ 999 mls/hr 06/24/23 07:45 06/24/23 09:57 Ns IV 06/24/23 08:45 Infused .Q1H1M KANDY Infusion Potassium Chloride/Sodium Chloride 40 meq in 1,000 mls @ 250 mls/hr 06/24/23 09:30 06/24/23 09:57 Kcl 40 Meq In 0.9 % Sodium Chl IV 06/24/23 13:29 250 mls/hr .Q4H KANDY Administration Sodium Chloride 1,000 mls @ 999 mls/hr 06/24/23 12:15 06/24/23 13:26 Ns IV 06/24/23 13:15 Infused .Q1H1M KANDY Infusion Morphine Sulfate 4 mg 06/24/23 08:24 06/24/23 08:36 Morphine Sulfate 4 Mg/Ml Cartridge IVPUSH 06/24/23 08:25 4 mg ONCE ONE Administration Protocol Potassium Chloride 40 meq 06/24/23 13:49 06/24/23 14:04 Potassium Chloride Er 20 Meq Tab.Er.Prt PO 06/24/23 13:50 40 meq ONCE ONE Administration Medical Decision Making Medical Decision Making [facility] Narrative: The patient is a 37-year-old female with a history of multiple ER visits for nausea and vomiting. I suspect that she has cannabis hyperemesis syndrome. She says that 2 days ago she used alcohol and marijuana and has been feeling unwell ever since. [place] [address] and she had a potassium of 2.8. Otherwise her labs were unremarkable. I did not feel she had an acute abdomen on exam. She has had 9 CTs of the abdomen and pelvis in the last 10 months. She was aggressively treated with antiemetics including IV droperidol and IV Benadryl. She was given a dose of IV morphine. She was given IV fluids with potassium. After several hours of observation she was finally feeling better and was able to tolerate oral intake. She was then given oral potassium and felt well enough for discharge. She was given a prescription for 1 week of oral potassium. Lab Data 06/24/23 08:48 06/24/23 08:48 Labs: Lab Results 06/24/23 06/24/23 06/24/23 Range/Units 08:48 12:29 13:41 WBC 16.3 H (4.8-10.8) X10*3/uL RBC 5.13 (4.20-5.50) X10*6/uL Hgb 13.9 (12.0-16.0) g/dl Hct 39.9 (37.0-47.0) % MCV 77.8 L (80.0-98.0) fL MCH 27.1 (27.0-33.0) pg MCHC 34.8 (31.0-35.0) g/dl RDW 14.6 (11.0-16.0) % Plt Count 271 (160-400) X10*3/uL MPV 11.2 (9.4-12.3) fL Immature Gran % (Auto) 0.6 H (0.0-0.4) % Neut % (Auto) 80.7 H (45-73) % Lymph % (Auto) 10.9 L (20-40) % [place] % (Auto) 7.6 (2-11) % Eos % (Auto) 0.0 (0-4) % Baso % (Auto) 0.2 (0-2) % Lymph # (Auto) 1.8 (1.2-4.9) X10*3/uL [place] # (Auto) 1.2 (0.1-1.2) X10*3/uL Eos # (Auto) 0.0 (0.0-0.4) X10*3/uL Baso # (Auto) 0.0 (0.0-0.2) X10*3/uL Abs Immat Gran (auto) 0.10 H (0.00-0.03) X10*3/uL Absolute Neuts (auto) 13.1 H (2.0-8.3) x10*3/uL Absolute Nucleated RBC 0.000 (0.0-0.012) X10*3/uL Nucleated RBC % (auto) 0.0 (0.0-0.2) /100WBC Sodium 141 (135-145) mmol/L Potassium 2.8 L* D (3.3-5.1) mmol/L Chloride 102 (96-108) mmol/L Carbon Dioxide 26 (22-29) mmol/L Anion Gap 16 (12-20) BUN 15 (9-16) mg/dL Creatinine 0.91 (0.5-1.4) mg/dL Estim Creat Clear Calc 90.9 Estimated GFR > 60 Random Glucose 108 (60-115) mg/dL Calcium 9.1 (8.4-10.2) mg/dL Total Bilirubin 1.2 H (0.0-1.0) mg/dL AST 25 (5-31) U/L ALT 19 (0-31) U/L Alkaline Phosphatase 58 (39-117) U/L C-Reactive Protein 1.24 H (< or = 0.50) mg/dL Total Protein 7.4 (6.5-8.0) g/dL Albumin 4.4 (3.5-5.0) g/dL Lipase 7 L (8-78) U/L Beta HCG, Quant < 2 mIU/mL Urine Color Yellow Urine Appearance Cloudy Urine pH 6.5 (5.0-9.0) Ur Specific [place] 1.020 (1.005-1.025) Urine Protein 100 (2+) H (Neg-Trace) mg/dL Urine Glucose (UA) Negative (Negative) mg/dL Urine Ketones 40 (Negative) mg/dL Urine Blood Moderate (2+) H (Negative) Urine Nitrite Negative (Negative) Ur Leukocyte Esterase Small (1+) H (Negative) Urine RBC 11-20 H (0-2) /HPF Urine WBC 21-50 H (0-5) /HPF Ur Squamous Epith Cells 3-5 (0-2) /HPF Urine Bacteria 2+ (None Seen) Hyaline Casts 3-5 (0-2) /LPF Urine Opiates Screen POSITIVE H (Not Detect) Ur Buprenorphine Scrn Not Detected (Not Detect) ng/mL Ur Oxycodone Screen Not Detected (Not Detect) ng/mL Urine Methadone Screen Not Detected (Not Detect) ng/mL Urine Fentanyl Screen Not Detected (Not Detect) Ur Barbiturates Screen Not Detected (Not Detect) Ur Phencyclidine Scrn Not Detected (Not Detect) Ur Amphetamines Screen Not Detected (Not Detect) U Benzodiazepines Scrn Not Detected (Not Detect) Urine Cocaine Screen Not Detected (Not Detect) U Marijuana (THC) Screen POSITIVE H (Not Detect) Ethyl Alcohol < 10 mg/dL Discharge Plan Discharge Clinical Impression: Vomiting, Hypokalemia Patient Disposition: Home, Self-Care Additional Instructions: Please rest and take it easy today. Try to take what food you can today. Your potassium level was a bit low. Please take the prescribed supplemental potassium 2 times a day. You received a dose here in the emergency room. Take your next dose this evening and then 2 times a day for the next week. Please follow up soon with your regular doctor's office to discuss this syndrome further. Please do your best to avoid alcohol and especially marijuana use. I think marijuana may be the reason you are having these episodes of severe vomiting. You may have a syndrome called ?cannabis hyperemesis syndrome. Return to the emergency room if significantly worse. Prescriptions: New potassium chloride 20 mEq tablet extended release 40 meq PO BID Qty: 14 0RF No Action metoprolol succinate 50 mg tablet extended release 24 hr 50 mg PO DAILY Qty: 90 1RF prednisone 20 mg tablet 20 mg PO DAILY 3 Days Qty: 3 0RF ketorolac 10 mg tablet 10 mg PO TID PRN (Reason: pain) 5 Days Qty: 15 0RF tamsulosin [Flomax] 0.4 mg capsule 0.4 mg PO DAILY 14 Days Qty: 14 0RF tramadol 50 mg Tablet 50 mg PO BID PRN (Reason: Pain) cefuroxime axetil 250 mg tablet 250 mg PO BID Qty: 6 0RF hydroxyzine HCl 25 mg tablet 25 mg PO TID PRN (Reason: anxiety) Referrals: [facility] [Provider Group] (Cyclic vomiting syndrome, marijuana use) Interventions: ED Discharge Assessment Last Done: 06/24/23 14:08 Discharge Date/Time: 06/24/23 14:10 Print Language: Andorran
[2023-06-24] MEDS: diphenhydrAMINE HCL 50 MG/ML VIAL IVPUSH ×2 (07:54→08:37)
[2023-06-24] MEDS: droPERidol 5 MG/2 ML VIAL 2.5 MG IVPUSH (07:54)
[2023-06-24] MEDS: 0.9 % Sodium Chloride 1,000 ML 999 ML IV ×2 (07:55→12:18)
[2023-06-24] MEDS: Morphine Sulfate 4 MG/ML CARTRIDGE IVPUSH (08:36)
[2023-06-24 08:53] LABS: MANUAL DIFF FLAG NO
[2023-06-24 08:59] LABS: Basophils Percent Auto 0.2 % (0-2); Hematocrit 39.9 % (37.0-47.0); Hemoglobin 13.9 g/dl (12.0-16.0); Imm Gran Pct Auto 0.6 % (0.0-0.4); Lymphocytes Absolute Auto 1.8 X10*3/uL (1.2-4.9); Lymphocytes Percent Auto 10.9 % (20-40); Mean Corpuscular HGB Conc 34.8 g/dl (31.0-35.0); Mean Corpuscular Hemoglobin 27.1 pg (27.0-33.0); Mean Corpuscular Volume 77.8 fL (80.0-98.0); Mean Platelet Volume 11.2 fL (9.4-12.3); Monocytes Absolute Auto 1.2 X10*3/uL (0.1-1.2); Monocytes Percent Auto 7.6 % (2-11); Neutrophils Absolute Auto 13.1 x10*3/uL (2.0-8.3); Neutrophils Percent Auto 80.7 % (45-73); Platelet Count 271 X10*3/uL (160-400); Red Blood Count 5.13 X10*6/uL (4.20-5.50); Red Cell Distribution Width 14.6 % (11.0-16.0); White Blood Count 16.3 X10*3/uL (4.8-10.8)
[2023-06-24 09:11] LABS: Ethanol < 10 mg/dL
[2023-06-24 09:15] LABS: Alanine Aminotransferase 19 U/L (0-31); Albumin Level 4.4 g/dL (3.5-5.0); Alkaline Phosphatase 58 U/L (39-117); Anion Gap 16 (12-20); Aspartate Amino Transferase 25 U/L (5-31); Bilirubin Total 1.2 mg/dL (0.0-1.0); Blood Urea Nitrogen 15 mg/dL (9-16); Calcium 9.1 mg/dL (8.4-10.2); Carbon Dioxide 26 mmol/L (22-29); Chloride 102 mmol/L (96-108); Creatinine Clr Calc Pharmacy 90.9; Estimated Glomerular Filt Rate > 60; Glucose Random 108 mg/dL (60-115); Sodium 141 mmol/L (135-145); Total Protein 7.4 g/dL (6.5-8.0)
[2023-06-24 09:17] LABS: Potassium 2.8 mmol/L (3.3-5.1)
[2023-06-24 09:18] LABS: C Reactive Protein 1.24 mg/dL (< or = 0.50); Lipase 7 U/L (8-78)
[2023-06-24 09:23] LABS: HCG Quantitative < 2 mIU/mL
--- NOTE | 2023-06-24 09:24 | ECG_ITS ---
Test Reason : hypokalemia Blood Pressure : / mmHG Vent. Rate : 067 BPM Atrial Rate : 067 BPM P-R Int : 134 ms QRS Dur : 088 ms QT Int : 422 ms P-R-T Axes : 026 052 059 degrees QTc Int : 445 ms Normal sinus rhythm with sinus arrhythmia Nonspecific T wave abnormality Abnormal ECG When compared with ECG of 24-JUN-2023 06:27, QT has shortened Referred By: Maury Butt Electronically Signed By:MARIAELENA DOE MD
[2023-06-24] MEDS: KCl 40 mEq in 0.9 % Sodium Chl 40 MEQ/1,000 ML IV.SOLN 250 MEQ IV (09:57)
[2023-06-24 12:45] LABS: Amphetamine Screen Urine Not Detected (Not Detect); Barbiturates, Urine Not Detected (Not Detect); Benzodiazepines Screen Urine Not Detected (Not Detect); Buprenorphine Scr Not Detected (Not Detect); Cannabinoid Screen Urine POSITIVE (Not Detect); Cocaine Screen Urine Not Detected (Not Detect); Fentanyl, urine Not Detected (Not Detect); Methadone Screen, Urine Not Detected (Not Detect); Opiate Screen Urine POSITIVE (Not Detect); Oxycodone Screen Urine Not Detected (Not Detect); Phencyclidine Screen Urine Not Detected (Not Detect)
[2023-06-24 13:49] LABS: Appearance Urine Cloudy; Color Urine Yellow; Glucose Urine UA Negative (Negative); Leukocyte Esterase Urine Small (1+) (Negative); Nitrite Urine Negative (Negative); PH 6.5 (5.0-9.0); UMIC TRIGGER UACC YES; Urine Blood Moderate (2+) (Negative); Urine Ketones 40 mg/dL (Negative); Urine Protein 100 (2+) mg/dL (Neg-Trace)
[2023-06-24 13:51] LABS: Bacteria Urine 2+ (None Seen); UACC Culture Trigger YES; WBC Urine 21-50 /HPF (0-5)
[2023-06-24] MEDS: Potassium Chloride ER 20 MEQ TAB.ER.PRT 40 MEQ PO (14:04)
[2023-06-24 14:08] VITALS: BP 124/81; PULSE 78; RESP 18; TEMP 36.7; O2SAT 97
== END 2023-06-24 14:10 | disposition home or self-care (01) ==
PROVIDERS: Emergency Provider Emergency Medicine
DX: R11.10 Vomiting, unspecified (principal); E87.6 Hypokalemia; Z87.442 Personal history of urinary calculi
CPT/HCPCS: 36415; 80053; 80307; 81001; 83690; 84702; 85025; 86140; 87086; 87147; 93005; 96361; 96374; 96375; 96376; 99284; J1200; J1790; J2270; J3480

== ENCOUNTER → 2023-06-24 06:27 | Outpatient (BNV) | payer OTHER, SELFPAY | PROVIDERS: Emergency Provider Emergency Medicine; Visit Provider Internal Medicine Cardiovascular Disease | DX: I49.9 Cardiac arrhythmia, unspecified (principal) | CPT/HCPCS: 93010 ==

== ENCOUNTER 2023-06-24 22:31 | Inpatient (IN) | payer OTHER, SELFPAY ==
[2023-06-24 22:33] VITALS: BP 117/70; PULSE 80; RESP 24; TEMP 36.6; O2SAT 99; BMI 28.2
--- NOTE | 2023-06-24 22:41 | ECG_ITS ---
Test Reason : dizziness Blood Pressure : / mmHG Vent. Rate : 058 BPM Atrial Rate : 058 BPM P-R Int : 128 ms QRS Dur : 078 ms QT Int : 428 ms P-R-T Axes : 031 044 049 degrees QTc Int : 420 ms Sinus bradycardia with marked sinus arrhythmia Otherwise normal ECG When compared with ECG of 24-JUN-2023 09:27, No significant change was found Referred By: Generic ED Physician Electronically Signed By:MARIAELENA DOE MD
--- NOTE | 2023-06-25 00:05 | PC.NURSE ---
Pt writhing around in pain between ED stretcher and floor. Encouraged to stay on stretcher for safety.
--- NOTE | 2023-06-25 00:15 | PC.NURSE ---
#20 PIV initiated to left AC.
[2023-06-25 00:16] LABS: MANUAL DIFF FLAG NO
[2023-06-25 00:17] LABS: Basophils Percent Auto 0.2 % (0-2); Eosinophils Percent Auto 0.2 % (0-4); Hematocrit 39.9 % (37.0-47.0); Hemoglobin 13.6 g/dl (12.0-16.0); Imm Gran Abs Auto 0.14 X10*3/uL (0.00-0.03); Imm Gran Pct Auto 0.8 % (0.0-0.4); Lymphocytes Absolute Auto 2.1 X10*3/uL (1.2-4.9); Lymphocytes Percent Auto 12.3 % (20-40); Mean Corpuscular HGB Conc 34.1 g/dl (31.0-35.0); Mean Corpuscular Hemoglobin 26.7 pg (27.0-33.0); Mean Corpuscular Volume 78.4 fL (80.0-98.0); Mean Platelet Volume 11.3 fL (9.4-12.3); Monocytes Absolute Auto 0.9 X10*3/uL (0.1-1.2); Neutrophils Absolute Auto 13.8 x10*3/uL (2.0-8.3); Neutrophils Percent Auto 81.5 % (45-73); Platelet Count 291 X10*3/uL (160-400); Red Blood Count 5.09 X10*6/uL (4.20-5.50); Red Cell Distribution Width 14.6 % (11.0-16.0)
[2023-06-25 00:35] LABS: Alanine Aminotransferase 19 U/L (0-31); Albumin Level 4.4 g/dL (3.5-5.0); Alkaline Phosphatase 57 U/L (39-117); Anion Gap 16 (12-20); Aspartate Amino Transferase 31 U/L (5-31); Bilirubin Direct 0.4 mg/dL (0.0-0.5); Bilirubin Total 1.4 mg/dL (0.0-1.0); Blood Urea Nitrogen 9 mg/dL (9-16); Calcium 9.7 mg/dL (8.4-10.2); Carbon Dioxide 23 mmol/L (22-29); Chloride 106 mmol/L (96-108); Creatinine Clr Calc Pharmacy 111.3; Estimated Glomerular Filt Rate > 60; Glucose Random 123 mg/dL (60-115); Lipase 8 U/L (8-78); Potassium 3.4 mmol/L (3.3-5.1); Sodium 142 mmol/L (135-145); Total Protein 7.4 g/dL (6.5-8.0)
[2023-06-25] MEDS: 0.9 % Sodium Chloride 1,000 ML 999 ML IVCONT ×2 (00:42→02:56)
[2023-06-25] MEDS: ondansetron HCL 4 MG/2 ML VIAL IVPUSH ×4 (00:42→22:37)
--- NOTE | 2023-06-25 00:42 | PC.NURSE ---
Pt medicated per MAR. pending effectiveness.
[2023-06-25] MEDS: Ketorolac Tromethamine 30 MG/ML VIAL IVPUSH (00:43)
[2023-06-25] MEDS: diphenhydrAMINE HCL 50 MG/ML VIAL IVPUSH ×2 (00:43→20:13)
[2023-06-25] MEDS: Famotidine/PF 20 MG/2 ML VIAL IVPUSH ×3 (00:45→20:28)
[2023-06-25] MEDS: Haloperidol Lactate 5 MG/ML VIAL 2.5 MG IM (00:47)
--- NOTE | 2023-06-25 01:11 | ED_ITS ---
HPI - General Adult General Chief complaint: Abdominal Pain Stated complaint: dizzy feels like passing out Time Seen by Provider: 06/24/23 23:55 Source: patient Mode of arrival: ambulatory Limitations: no limitations History of Present Illness HPI narrative: Patient comes to the emergency room complaining of diffuse abdominal pain and vomiting. Patient was discharged earlier today for cyclical vomiting. On arrival, patient crawled her way in from the ED main door to triage. Patient states that she has been unable to eat or drink anything and unable to stop vomiting. Patient denies diarrhea, no fever chills. Before patient was discharged today, patient was eating and drinking, tolerated well p.o.. Of note, patient has had 9 CT scans in less than a year for similar symptoms. Related Data Home Medications ?Medication ?Instructions ?Recorded ?Confirmed hydroxyzine HCl 25 mg tablet 25 mg PO TID PRN anxiety 12/03/22 04/08/23 tramadol 50 mg tablet 50 mg PO BID PRN Pain 04/08/23 04/08/23 Previous Rx's ?Medication ?Instructions ?Recorded metoprolol succinate 50 mg 50 mg PO DAILY #90 tabs 02/16/23 tablet,extended release 24 hr cefuroxime axetil 250 mg tablet 250 mg PO BID #6 tabs 04/09/23 ketorolac 10 mg tablet 10 mg PO TID PRN pain 5 days #15 05/15/23 tabs prednisone 20 mg tablet 20 mg PO DAILY 3 days #3 tabs 05/15/23 tamsulosin 0.4 mg capsule (Flomax) 0.4 mg PO DAILY 2 weeks #14 caps 05/15/23 potassium chloride 20 mEq 40 meq (2 x 20 mEq) PO BID #14 tabs 06/24/23 tablet,extended release Allergies Allergy/AdvReac Type Severity Reaction Status Date / Time hydromorphone [Dilaudid] Allergy Unknown hives Verified 06/24/23 22:39 metoclopramide [From Reglan] Allergy Unknown Verified 06/24/23 22:39 ibuprofen [From MOTRIN] AdvReac Mild STOMACH Verified 06/24/23 22:39 UPSET Review of Systems 2 Review of Systems: Constitutional : No Weight loss, No Fever, No Chills, No Night Sweats, No Fatigue, No Malaise ENT/Mouth : No Hearing loss, No Ear Pain, No Nasal Congestion, No Sinus Pain, No Hoarseness, No sore throat, No Rhinorrhea, No Swallowing Difficulty Eyes: No Eye Pain, No Swelling, No Redness, No Foreign Body, No Discharge, No Vision Changes Cardiovascular : No Chest Pain, No SOB, No Dyspnea on Exertion, No Orthopnea, No Edema, No Palpitations Respiratory : No Cough, No Sputum, No Wheezing, No Smoke Exposure, No Dyspnea Gastrointestinal : Complaining of nausea, vomiting, abdominal pain, denies diarrhea Genitourinary : no irregular bleeding, No Dysuria, No Urinary Frequency, No Hematuria, No Urinary Incontinence, No Urgency, No Flank Pain, No Urinary Flow Changes, No Hesitancy Musculoskeletal : No joint pain, No Myalgias, No Joint Swelling Skin : No Skin Lesions, No rash Neuro : No Weakness, No Numbness, No Paresthesias, No Loss of Consciousness, No Dizziness, No Headache Psych : No Anxiety/Panic, No Depression, No SI/HI/AH/VH, No Social Issues, Heme/Lymph: No Bruising, No Bleeding,No Lymphadenopathy Endocrine : No Polyuria, No Polydipsia, No Temperature Intolerance [facility] Past Medical History Medical History Shortness of breath Sinus tachycardia Cyclical vomiting Anxiety Ureteric calculus Family History Family History Father Heart disease Social History Social History Household Members: Spouse and Children Housing: House Do you presently have visiting nurse or other home services: No Alcohol intake: former Patient Tobacco Use Status: Never used Tobacco Substance Use Type: Marijuana Advance Directives: No Advance Directives Information Provided: Yes Do you have a plan to hurt others: No Plan Physical Exam ED Vital Signs: Vital Signs - 24 hr 06/24/23 22:33 06/25/23 01:20 Temperature 97.8 F 98.5 F Pulse Rate 80 62 Respiratory Rate 24 H 16 Blood Pressure 117/70 119/53 L Pulse Oximetry 99 97 Oxygen Delivery Method Room Air Room Air BMI result Body Mass Index 28.2 Const Other: Appearance: Alert. Oriented X3. Crawling around the floor, able to get up and walk, then throws herself on the floor Eyes: Pupils equal, round and reactive to light. ENT: Pharynx normal. Neck: Normal inspection. Neck supple. No lymph nodes noted. No crepitus CVS: Normal heart rate and rhythm. Pulses normal. Normal S1 and S2 Respiratory: No respiratory distress. Breath sounds normal. No Wheezing. No rales Abdomen: Soft and nontender. No rigidity. No distention. Dry heaving, no vomiting here in the ED Skin: Skin warm and dry. Normal skin color. Normal skin turgor. Extremities: No lower extremity edema. No Lacerations. No Rash Neuro: Oriented X 3. No motor deficit. No sensory deficit. Moving all extremities. No slurred speech. CN 2 through 12 grossly intact Psych: calm, cooperative, normal affect Course Course Course Narrative: Patient had to be encouraged to pick up operator herself off the floor and get to the bed -patient receiving IV fluids, famotidine, ketorolac, Benadryl, Zofran and IM haloperidol Medications Administered Discontinued Medications Generic Name Dose Route Start Last Admin Trade Name Freq PRN Reason Stop Dose Admin Diphenhydramine HCl 50 mg 06/25/23 00:22 06/25/23 00:43 Diphenhydramine Hcl 50 Mg/Ml Vial IVPUSH 06/25/23 00:23 50 mg ONCE ONE Administration Famotidine 20 mg 06/25/23 00:20 06/25/23 00:45 Famotidine/Pf 20 Mg/2 Ml Vial IVPUSH 06/25/23 00:21 20 mg ONCE ONE Administration Haloperidol Lactate 2.5 mg 06/25/23 00:20 06/25/23 00:47 Haloperidol Lactate 5 Mg/Ml Vial IM 06/25/23 00:21 2.5 mg STAT STA Administration Sodium Chloride 1,000 mls @ 999 mls/hr 06/25/23 00:20 06/25/23 01:51 Ns IVCONT 06/25/23 01:20 Infused .Q1H1M ONE Infusion Ketorolac Tromethamine 30 mg 06/25/23 00:20 06/25/23 00:43 Ketorolac Tromethamine 30 Mg/Ml Vial IVPUSH 06/25/23 00:21 30 mg ONCE ONE Administration Ondansetron HCl 4 mg 06/25/23 00:20 06/25/23 00:42 Ondansetron Hcl 4 Mg/2 Ml Vial IVPUSH 06/25/23 00:21 4 mg ONCE ONE Administration Medical Decision Making Medical Decision Making [facility] [place] Narrative: My interpretation of labs: Patient has chronic leukocytosis, no significant changes from earlier today -despite getting multiple medications, patient keeps complaining of nausea, retching, abdominal pain -I discussed the patient with Dr. Johnson, patient being admitted Differential Diagnosis Differential Diagnoses: The differential diagnosis associated with the presentation includes (Cyclical vomiting, gastroenteritis, anxiety/panic attack) Admission/Observation Consideration of admission/observation: Escalation of care including admission/observation considered (Given patient's return for similar symptoms, admission was considered) Lab Data [facility] [place] Lab Attestation statement: I reviewed the patient's lab results. 06/25/23 00:10 06/25/23 00:10 Labs: Lab Results 06/25/23 Range/Units 00:10 WBC 17.0 H (4.8-10.8) X10*3/uL RBC 5.09 (4.20-5.50) X10*6/uL Hgb 13.6 (12.0-16.0) g/dl Hct 39.9 (37.0-47.0) % MCV 78.4 L (80.0-98.0) fL MCH 26.7 L (27.0-33.0) pg MCHC 34.1 (31.0-35.0) g/dl RDW 14.6 (11.0-16.0) % Plt Count 291 (160-400) X10*3/uL MPV 11.3 (9.4-12.3) fL Immature Gran % (Auto) 0.8 H (0.0-0.4) % Neut % (Auto) 81.5 H (45-73) % Lymph % (Auto) 12.3 L (20-40) % [place] % (Auto) 5.0 (2-11) % Eos % (Auto) 0.2 (0-4) % Baso % (Auto) 0.2 (0-2) % Lymph # (Auto) 2.1 (1.2-4.9) X10*3/uL [place] # (Auto) 0.9 (0.1-1.2) X10*3/uL Eos # (Auto) 0.0 (0.0-0.4) X10*3/uL Baso # (Auto) 0.0 (0.0-0.2) X10*3/uL Abs Immat Gran (auto) 0.14 H (0.00-0.03) X10*3/uL Absolute Neuts (auto) 13.8 H (2.0-8.3) x10*3/uL Absolute Nucleated RBC 0.000 (0.0-0.012) X10*3/uL Nucleated RBC % (auto) 0.0 (0.0-0.2) /100WBC Sodium 142 (135-145) mmol/L Potassium 3.4 D (3.3-5.1) mmol/L Chloride 106 (96-108) mmol/L Carbon Dioxide 23 (22-29) mmol/L Anion Gap 16 (12-20) BUN 9 (9-16) mg/dL Creatinine 0.75 (0.5-1.4) mg/dL Estim Creat Clear Calc 111.3 Estimated GFR > 60 Random Glucose 123 H (60-115) mg/dL Calcium 9.7 D (8.4-10.2) mg/dL Total Bilirubin 1.4 H (0.0-1.0) mg/dL Direct Bilirubin 0.4 (0.0-0.5) mg/dL AST 31 (5-31) U/L ALT 19 (0-31) U/L Alkaline Phosphatase 57 (39-117) U/L Total Protein 7.4 (6.5-8.0) g/dL Albumin 4.4 (3.5-5.0) g/dL Lipase 8 (8-78) U/L Critical Care Time Critical Care Time Critical Care Time: Yes Total Critical Care Time: 45 Attestation: I have personally provided critical care time. Time includes review of lab data, radiology results, discussion with consultants, and monitoring for potential decompensation. Intervention performed as documented. Discharge Plan Discharge Clinical Impression: Cyclical vomiting Patient Disposition: Admitted As Inpatient Prescriptions: No Action metoprolol succinate 50 mg tablet extended release 24 hr 50 mg PO DAILY Qty: 90 1RF prednisone 20 mg tablet 20 mg PO DAILY 3 Days Qty: 3 0RF ketorolac 10 mg tablet 10 mg PO TID PRN (Reason: pain) 5 Days Qty: 15 0RF tamsulosin [Flomax] 0.4 mg capsule 0.4 mg PO DAILY 14 Days Qty: 14 0RF potassium chloride 20 mEq tablet extended release 40 meq PO BID Qty: 14 0RF tramadol 50 mg Tablet 50 mg PO BID PRN (Reason: Pain) cefuroxime axetil 250 mg tablet 250 mg PO BID Qty: 6 0RF hydroxyzine HCl 25 mg tablet 25 mg PO TID PRN (Reason: anxiety) Print Language: Burundian
--- NOTE | 2023-06-25 01:18 | PC.NURSE ---
pt appears more calm at this time. Respirations even and unlabored.
[2023-06-25 01:20] VITALS: BP 119/53; PULSE 62; RESP 16; TEMP 36.9; O2SAT 97
--- NOTE | 2023-06-25 02:45 | PC.NURSE ---
Pt with continued complaints of pain and nausea. Provider made aware.
[2023-06-25] MEDS: Prochlorperazine Edisylate 10 MG/2 ML VIAL IVPUSH ×2 (02:55→20:28)
[2023-06-25 03:33] VITALS: BP 118/60; PULSE 67; RESP 16; TEMP 36.9; O2SAT 96
--- NOTE | 2023-06-25 04:25 | PC.NURSE ---
pt arrived to the Overflow unit from the Main ED, Pt c/o abd pain and nausea
--- NOTE | 2023-06-25 04:27 | PC.NURSE ---
Report to Raghav HALL for continued care. Pt states pain is better and rating pain a 5/10 on transport to overflow.
--- NOTE | 2023-06-25 05:51 | PC.NURSE ---
pt upset, c/o nausea and vomiting pt informed the dr ordered tylenol pt refused med
[2023-06-25 08:00] VITALS: BP 145/68; PULSE 57; RESP 20; O2SAT 99
--- NOTE | 2023-06-25 08:30 | PC.NURSE ---
Patient ate some yogurt and vomited on her way to the bathroom tigered Dr. Dai for anti-nausea and pain medications. Awaiting response.
[2023-06-25] MEDS: Lactated Ringers 1,000 ML 100 ML IVCONT (10:58)
[2023-06-25] MEDS: Ketorolac Tromethamine 15 MG/ML VIAL IVPUSH (11:06)
[2023-06-25] MEDS: Promethazine HCL 25 MG/ML VIAL 6.25 MG IM ×2 (11:07→20:01)
--- NOTE | 2023-06-25 11:34 | PHA.MEDREC ---
Addendum entered by Freedom Guerrero 06/25/23 12:12: Per [facility], Hydroxizine 25 last picked up June 2022 with directions 1tid prnf anxiety, with day supply of 30 as needed. Original Note: Pharmacy Consult ? Medication Reconciliation Pharmacy has completed the medication reconciliation.
[2023-06-25 12:00] VITALS: BP 151/90; PULSE 62; RESP 18; TEMP 37; O2SAT 100
[2023-06-25] MEDS: diphenhydrAMINE HCL 50 MG/ML VIAL 25 MG IVPUSH ×3 (12:56→23:10)
--- NOTE | 2023-06-25 13:05 | PC.NURSE ---
Patient up walking around the ed, asking for lunch, educated she is NPO, asking for ice chips
[2023-06-25] MEDS: LORazepam 2 MG/ML VIAL 0.5 MG IVPUSH (14:27)
--- NOTE | 2023-06-25 16:46 | PM.IMHP ---
History of Present Illness Date of Service: 06/25/23 Attending physician on admission: Hetal Dai Chief Complaint: perssitent nause a/vomiting 37-year-old female who was discharged per cyclic vomiting yesterday coming back with nausea vomiting, and she says after vomiting she also feels soreness in upper abd. Patient unable to eat doing having persistent nausea vomiting. She had multiple CT scans need to make sure nurse's or similar symptoms-in the ED patient received multiple antiemetics, also received Toradol . She uses marijuana, simple since yesterday when she left home did not use as per the patient claims. Patient patient pain seems to be improving, feels still anxious and nauseated, going to bathroom-since this morning afterwards did not vomit. But feels very nauseated. Ask him for anxiety and nausea medication. Denies any new complaint of chest pain or shortness of breath or fever or chills Denies any cough Denies any weakness or numbness. Review of Systems Review of Systems: as above. Yes all other systems are reviewed and are negative [facility] Medical History Shortness of breath Sinus tachycardia Cyclical vomiting Anxiety Ureteric calculus Family History Father Heart disease Social History Household Members: Spouse and Children Housing: House Do you presently have visiting nurse or other home services: No Alcohol intake: former Patient Tobacco Use Status: Never used Tobacco Substance Use Type: Marijuana Advance Directives: No Advance Directives Information Provided: Yes Do you have a plan to hurt others: No Plan Nutrition Risks: No Nutritional Risk Meds Allergies Allergy/AdvReac Type Severity Reaction Status Date / Time hydromorphone [Dilaudid] Allergy Unknown hives Verified 06/24/23 22:39 metoclopramide [From Reglan] Allergy Unknown Verified 06/24/23 22:39 ibuprofen [From MOTRIN] AdvReac Mild STOMACH Verified 06/24/23 22:39 UPSET Active Medications: Current Medications Acetaminophen (Acetaminophen 325 Mg Tablet) 975 mg PO Q6H PRN PRN Reason: Pain, Moderate(Pain Scale 4-6) Diphenhydramine HCl (Diphenhydramine Hcl 50 Mg/Ml Vial) 25 mg IVPUSH Q6H [facility] Last Admin: 06/25/23 12:56 Dose: 25 mg Famotidine (Famotidine/Pf 20 Mg/2 Ml Vial) 20 mg IVPUSH BID [facility] Last Admin: 06/25/23 10:58 Dose: 20 mg Lactated Ringer's (Lr) 1,000 mls @ 100 mls/hr IVCONT .Q10H [facility] Last Admin: 06/25/23 10:58 Dose: 100 mls/hr Ketorolac Tromethamine (Ketorolac Tromethamine 15 Mg/Ml Vial) 15 mg IVPUSH Q6H PRN PRN Reason: Pain, Mild (Pain Scale 1-3) Last Admin: 06/25/23 11:06 Dose: 15 mg Ondansetron HCl (Ondansetron Hcl 4 Mg/2 Ml Vial) 4 mg IVPUSH Q6H [facility] Last Admin: 06/25/23 10:58 Dose: 4 mg Promethazine HCl (Promethazine Hcl 25 Mg/Ml Vial) 6.25 mg IM Q6H PRN PRN Reason: Nausea and Vomiting Last Admin: 06/25/23 11:07 Dose: 6.25 mg Sodium Chloride (0.9 % Sodium Chloride Flush 3 Ml Syringe) 3 ml IVFLUSH QSHIFT [facility] Last Admin: 06/25/23 14:31 Dose: Not Given Home Medications ?Medication ?Instructions ?Recorded ?Confirmed ?Last Taken ?Type hydroxyzine HCl 25 mg tablet 25 mg PO TID PRN anxiety 12/03/22 06/25/23 Unknown History Physical Exam Vital Signs and Narrative: Vital Signs: Last Vital Signs Temp 98.6 F 06/25/23 12:00 Pulse 62 06/25/23 12:00 Resp 18 06/25/23 12:00 BP 151/90 H 06/25/23 12:00 Pulse Ox 100 06/25/23 12:00 O2 Del Method Room Air 06/25/23 12:00 BMI result Body Mass Index 28.2 Appearance: Alert.? Oriented X3.?anxious cvs: rrr, [id number] , no murmur res: clear to auscultation ,no rhonchii or wheezing abd:soft, no rebound or guarding ,nt, bs present. ext pulses present , no cyanosis . neuro: axo3 , nonfocal. Results Labs 06/25/23 00:10 06/25/23 00:10 Labs: Laboratory Results - last 24 hr 06/25/23 00:10 MCV 78.4 L MCH 26.7 L MCHC 34.1 RDW 14.6 Plt Count 291 MPV 11.3 Immature Gran % (Auto) 0.8 H Neut % (Auto) 81.5 H Lymph % (Auto) 12.3 L Sutter % (Auto) 5.0 Eos % (Auto) 0.2 Baso % (Auto) 0.2 Lymph # (Auto) 2.1 Sutter # (Auto) 0.9 Eos # (Auto) 0.0 Baso # (Auto) 0.0 Abs Immat Gran (auto) 0.14 H Absolute Neuts (auto) 13.8 H Absolute Nucleated RBC 0.000 Nucleated RBC % (auto) 0.0 Anion Gap 16 Estim Creat Clear Calc 111.3 Estimated GFR > 60 Random Glucose 123 H Calcium 9.7 D Total Bilirubin 1.4 H Direct Bilirubin 0.4 AST 31 ALT 19 Alkaline Phosphatase 57 Total Protein 7.4 Albumin 4.4 Lipase 8 Assessment and Plan (1) Cyclical vomiting: Status: Acute 37-year-old female who was discharged per cyclic vomiting yesterday coming back with nausea vomiting, and she says after vomiting she also feels soreness in upper abd. Patient unable to eat doing having persistent nausea vomiting. Cyclic vomiting: Possibly related to marijuana use Unable to take p.o. IV hydration, PPIs, antiemetics, Toradol p.r.n. for pain Patient was strongly advised to abstain from marijuana. ?uti : has leucocytosis /abnormal ua also has hx of uti will add ceftriaxone anxiety -continue home meds. dvt prophylax: ambulation Patient will benefit from 2 midnight stay considering cyclic vomiting recurrent episodes and ED visits-need IV hydration, antiemetics, also an need to tolerate diet which she is unable to do so far, antibiotics for UTI possible. (2) Anxiety: Status: Acute 37-year-old female who was discharged per cyclic vomiting yesterday coming back with nausea vomiting, and she says after vomiting she also feels soreness in upper abd. Patient unable to eat doing having persistent nausea vomiting. Cyclic vomiting: Possibly related to marijuana use Unable to take p.o. IV hydration, PPIs, antiemetics, Toradol p.r.n. for pain Patient was strongly advised to abstain from marijuana. ?uti : has leucocytosis /abnormal ua also has hx of uti will add ceftriaxone anxiety -continue home meds. dvt prophylax: ambulation Patient will benefit from 2 midnight stay considering cyclic vomiting recurrent episodes and ED visits-need IV hydration, antiemetics, also an need to tolerate diet which she is unable to do so far, antibiotics for UTI possible. Quality Stroke Does the patient have a stroke diagnosis?: No VTE Prior VTE?: No VTE Risk Level:: Medical - moderate - high VTE Device Contraindication: N/A - Device Ordered VTE Drug Contraindication: Patient Refused
[2023-06-25] MEDS: cefTRIAXone sodium 1 GM in 0.9 % Sodium Chloride 50 ML IV (18:21)
[2023-06-25] MEDS: 0.9 % Sodium Chloride 1,000 ML 80 ML IVCONT (18:25)
--- NOTE | 2023-06-25 20:06 | PC.NURSE ---
Pt c/o n/v and anxiety. Phenergan given IM as ordered. Message sent to MD regarding anxiety. Pt requesting Benadryl now, spoke with MD and ordered now.
[2023-06-25] MEDS: LORazepam 1 MG TABLET PO (20:32)
[2023-06-25 20:42] VITALS: BP 145/94; PULSE 67; RESP 18; TEMP 36.9; O2SAT 97
[2023-06-26] MEDS: diphenhydrAMINE HCL 50 MG/ML VIAL 25 MG IVPUSH (05:29)
[2023-06-26] MEDS: ondansetron HCL 4 MG/2 ML VIAL IVPUSH (05:29)
[2023-06-26 05:40] VITALS: BP 140/87; PULSE 88; RESP 16; TEMP 36.8; O2SAT 99
[2023-06-26] MEDS: 0.9 % Sodium Chloride 1,000 ML 80 ML IVCONT (06:42)
[2023-06-26 08:00] VITALS: BP 133/79; PULSE 64; RESP 17; TEMP 36.7; O2SAT 99
[2023-06-26 08:33] LABS: Hematocrit 41.8 % (37.0-47.0); Hemoglobin 13.8 g/dl (12.0-16.0); Mean Corpuscular Hemoglobin 26.6 pg (27.0-33.0); Mean Corpuscular Volume 80.5 fL (80.0-98.0); Mean Platelet Volume 11.3 fL (9.4-12.3); Platelet Count 240 X10*3/uL (160-400); Red Blood Count 5.19 X10*6/uL (4.20-5.50); Red Cell Distribution Width 14.6 % (11.0-16.0)
[2023-06-26 09:06] LABS: Anion Gap 16 (12-20); Blood Urea Nitrogen 7 mg/dL (9-16); Calcium 8.9 mg/dL (8.4-10.2); Carbon Dioxide 24 mmol/L (22-29); Chloride 105 mmol/L (96-108); Creatinine Clr Calc Pharmacy 105.6; Estimated Glomerular Filt Rate > 60; Glucose Random 88 mg/dL (60-115); Potassium 2.9 mmol/L (3.3-5.1); Sodium 142 mmol/L (135-145)
--- NOTE | 2023-06-26 09:49 | P.DS_ITS ---
DS: Providers Provider Date of Service: 06/26/23 Date of admission: 06/25/23 10:26 Date of discharge: 06/26/23 Primary care physician: Unknown Physician Attending physician on discharge: Hetal Dai Discharging clinician: Hetal Dai DS: Diagnosis Discharge Diagnosis (1) Cyclical vomiting: Status: Acute (2) Anxiety: Status: Acute DS: Summary Hospital Course Hospital Course: 37-year-old female who was discharged per cyclic vomiting yesterday coming back with nausea vomiting, and she says after vomiting she also feels soreness in upper abd. Patient unable to eat doing having persistent nausea vomiting. She had multiple CT scans need to make sure nurse's or similar symptoms-in the ED patient received multiple antiemetics, also received Toradol . She uses marijuana, simple since yesterday when she left home did not use as per the patient claims. Patient patient pain seems to be improving, feels still anxious and nauseated, going to bathroom-since this morning afterwards did not vomit. But feels very nauseated. Ask him for anxiety and nausea medication. Denies any new complaint of chest pain or shortness of breath or fever or chills Denies any cough Denies any weakness or numbness. Hospital course: Patient admitted intractable nausea vomiting and some epigastric discomfort- patient was started on IV hydration ,antiemetics, PPIs seems to be improved. In addition patient has urinary frequency and history of UTIs: UA shows pyuria and bacteriuria-started on IV antibiotics-seems to be improving, leukocytosis also improving, urine culture-? Contaminant mixed deshawn. Also patient had hypokalemia due to nausea vomiting: Given 40 mEq p.o. potassium, also given 10 mEq p.o. daily potassium supply for 5 more days. plan: compete [id number] mg po bidfor 5 days moniter bmp with pcp. potassium 10 meq 5 days supply given stringly advised to quit marijuana to avoid further episode of cyclic vomiting Above management discussed with the patient in detail length she understand and in agreement with the above plan, time spent 40 minutes and 50% time spent on counseling. Time Attestation Total time managing care of this patient today: 40 mintues. Discharge Coordination Time (in mins): 40min Quality: Safe Use of Opioids Does Pt have an Active Cancer Diagnosis on the Problem List?: No Quality: Stroke Does the patient have a stroke diagnosis?: No Physical Exam Vital Signs: Vital Signs: Last Vital Signs Temp 98.1 F 06/26/23 08:00 Pulse 64 06/26/23 08:00 Resp 17 06/26/23 08:00 BP 133/79 06/26/23 08:00 Pulse Ox 99 06/26/23 08:00 O2 Del Method Room Air 06/26/23 08:00 BMI result Body Mass Index 28.2 Appearance: Alert.? Oriented X3.? cvs: rrr, [id number]. res: clear to auscultation ,no rhonchii or wheezing abd: no rebound or guarding ,nt, bs present. ext pulses present , no cyanosis. neuro: axo3 , nonfocal. DS: Data Data Completed and Pending Labs on day of discharge: Laboratory Results - last 24 hr 06/26/23 08:24 WBC 11.0 H RBC 5.19 Hgb 13.8 Hct 41.8 MCV 80.5 MCH 26.6 L MCHC 33.0 RDW 14.6 Plt Count 240 MPV 11.3 Absolute Nucleated RBC 0.000 Nucleated RBC % (auto) 0.0 Sodium 142 Potassium 2.9 L* Chloride 105 Carbon Dioxide 24 Anion Gap 16 BUN 7 L Creatinine 0.79 Estim Creat Clear Calc 105.6 Estimated GFR > 60 Random Glucose 88 Calcium 8.9 D Discharge Plan Discharge Anticipated Discharge Date/Time: 06/26/23 09:28 Patient Disposition: Home, Self-Care Discharge Diagnosis: Cyclic vomiting , hypokalemia Referrals: Physician,Unknown J [Primary Care Provider] - 1 Week Discharge Medications: New cefuroxime axetil 250 mg Tablet 250 mg PO Q12H Qty: 10 0RF ondansetron HCl 4 mg tablet 4 mg PO Q8-12H PRN (Reason: nausea and vomiting) Qty: 7 0RF potassium chloride 10 mEq tablet extended release 10 meq PO DAILY Qty: 5 0RF omeprazole 20 mg capsule,delayed release(DR/EC) 20 mg PO DAILY Qty: 30 0RF Continued metoprolol succinate 50 mg tablet extended release 24 hr 50 mg PO DAILY Qty: 90 1RF hydroxyzine HCl 25 mg tablet 25 mg PO TID PRN (Reason: anxiety) Discharge Orders: Discharge Order (Routine); Ordered 06/26/23 Ordered By: Hetal Dai Diet: Advance to usual diet Activity on Discharge: As tolerated Stand Alone Forms: Patient Portal Discharge page, Work/School Release Print Language: German Other Ambulatory Orders: Basic Metabolic Panel (Routine) Timeframe: 1 Week Facility: [facility] - Location: Laboratory Ordered By: Hetal Dai Care Plan Goals: compete [id number] mg po bidfor 5 days moniter bmp atwithpcp. potassium 10 meq 5 days supply given stringly advised to quit marijuana to avoid further episode of cyclic vomiting Health Concerns: as above. Plan of Treatment: as above. Assessment: as above
[2023-06-26] MEDS: Potassium Chloride ER 20 MEQ TAB.ER.PRT 40 MEQ PO (10:20)
[2023-06-26] MEDS: cefuroxime axetiL 250 MG TABLET PO (10:20)
== END 2023-06-26 10:45 | disposition home or self-care (01) | DRG 425 ==
LOC: HO.ED 06-25 04:14 → HO.EDOVER 06-25 10:32
PROVIDERS: Admitting Provider Internal Medicine; Emergency Provider Emergency Medicine; Visit Provider Internal Medicine
DX: E87.6 Hypokalemia (principal); F12.90 Cannabis use, unspecified, uncomplicated; F41.9 Anxiety disorder, unspecified; R11.2 Nausea with vomiting, unspecified
CPT/HCPCS: 36415; 80048; 80076; 83690; 85025; 85027; 93005; 99221; 99285; J0696; J0737; J1200; J1630; J1885; J2060; J2405; J2550; J7120

== ENCOUNTER → 2023-06-25 10:26 | Outpatient (BNV) | payer OTHER, SELFPAY | PROVIDERS: Admitting Provider Internal Medicine; Emergency Provider Emergency Medicine; Visit Provider Internal Medicine | DX: R11.15 Cyclical vomiting syndrome unrelated to migraine (principal); F41.9 Anxiety disorder, unspecified | CPT/HCPCS: 99222; 99239 ==

== ENCOUNTER 2023-08-06 02:52 | Emergency (ER) | payer OTHER, SELFPAY ==
--- NOTE | ~2023-08-06 | XR_ITS ---
EXAMINATION: XR CHEST CLINICAL INFORMATION: Chest pain. Chest feels funny. COMPARISON: 11/27/2022 TECHNIQUE: Frontal view of the chest was obtained. FINDINGS: Lungs are clear. No consolidation, pneumothorax, or pleural effusion. Cardiac and mediastinal contours are normal. Pulmonary vasculature is unremarkable. Osseous structures are unremarkable. XR/XR chest 1V IMPRESSION: No acute cardiopulmonary findings
[2023-08-06 03:15] VITALS: BP 142/73; PULSE 66; RESP 16; TEMP 36.4; O2SAT 100; BMI 27.4
--- NOTE | 2023-08-06 03:19 | ECG_ITS ---
Test Reason : CHEST FEELS FUNNY Blood Pressure : / mmHG Vent. Rate : 071 BPM Atrial Rate : 071 BPM P-R Int : 130 ms QRS Dur : 086 ms QT Int : 436 ms P-R-T Axes : 029 012 048 degrees QTc Int : 473 ms Normal sinus rhythm with sinus arrhythmia Normal ECG When compared with ECG of 24-JUN-2023 22:51, QT has lengthened Referred By: Generic ED Physician Electronically Signed By:MARIAELENA DOE MD
[2023-08-06 03:38] LABS: MANUAL DIFF FLAG NO
[2023-08-06 03:40] LABS: Basophils Absolute Auto 0.1 X10*3/uL (0.0-0.2); Basophils Percent Auto 0.3 % (0-2); Eosinophils Percent Auto 0.1 % (0-4); Hematocrit 42.5 % (37.0-47.0); Hemoglobin 14.6 g/dl (12.0-16.0); Imm Gran Abs Auto 0.06 X10*3/uL (0.00-0.03); Imm Gran Pct Auto 0.3 % (0.0-0.4); Lymphocytes Absolute Auto 2.6 X10*3/uL (1.2-4.9); Lymphocytes Percent Auto 13.3 % (20-40); Mean Corpuscular HGB Conc 34.4 g/dl (31.0-35.0); Mean Corpuscular Hemoglobin 26.3 pg (27.0-33.0); Mean Corpuscular Volume 76.4 fL (80.0-98.0); Mean Platelet Volume 11.6 fL (9.4-12.3); Monocytes Absolute Auto 1.4 X10*3/uL (0.1-1.2); Neutrophils Absolute Auto 15.3 x10*3/uL (2.0-8.3); Platelet Count 332 X10*3/uL (160-400); Red Blood Count 5.56 X10*6/uL (4.20-5.50); Red Cell Distribution Width 14.6 % (11.0-16.0); White Blood Count 19.3 X10*3/uL (4.8-10.8)
[2023-08-06 03:41] LABS: Appearance Urine Cloudy; Color Urine Dark Yellow; Glucose Urine UA Negative (Negative); Leukocyte Esterase Urine Trace (Negative); Nitrite Urine Negative (Negative); Specific Gravity - Urine 1.025 (1.005-1.025); UMIC TRIGGER UACC YES; Urine Blood Moderate (2+) (Negative); Urine Ketones Negative (Negative); Urine Protein 300 (3+) mg/dL (Neg-Trace)
[2023-08-06 03:46] LABS: Bacteria Urine 1+ (None Seen); RBC Urine >20 /HPF (0-2); UACC Culture Trigger YES
[2023-08-06 03:51] LABS: UPreg QC Valid YES; Urine Pregnancy NEGATIVE (NEGATIVE)
[2023-08-06 03:59] LABS: Anion Gap 18 (12-20); Blood Urea Nitrogen 14 mg/dL (9-16); Calcium 10.6 mg/dL (8.4-10.2); Carbon Dioxide 24 mmol/L (22-29); Chloride 101 mmol/L (96-108); Estimated Glomerular Filt Rate > 60; Glucose Random 150 mg/dL (60-115); Potassium 3.2 mmol/L (3.3-5.1); Sodium 140 mmol/L (135-145)
[2023-08-06 04:07] LABS: Troponin-I High Sensitivity < 2.7 ng/L (<3.5-17.0)
[2023-08-06 04:33] VITALS: BP 143/83; PULSE 83; RESP 18; TEMP 36.9; O2SAT 96
--- NOTE | 2023-08-06 05:06 | ED.NAVMDI ---
HPI - Nausea/Vomiting/Diarrhea General Chief complaint: Abdominal Pain Stated complaint: n/v x3 days Time Seen by Provider: 08/06/23 05:06 Source: patient Mode of arrival: ambulatory Limitations: no limitations History of Present Illness ED Provider: yoana KUMAR Narrative: Patient's history of cyclic vomiting syndrome smokes marijuana been to the ER multiple times for same does get sick almost every few months comes in for 3 days of nausea vomiting with epigastric pain similar to that in the past patient had 5 CT scan in last 6 months patient also does have anxiety and smokes marijuana for anxiety Related Data Home Medications ?Medication ?Instructions ?Recorded ?Confirmed hydroxyzine HCl 25 mg tablet 25 mg PO TID PRN anxiety 12/03/22 06/25/23 Previous Rx's ?Medication ?Instructions ?Recorded metoprolol succinate 50 mg 50 mg PO DAILY #90 tabs 02/16/23 tablet,extended release 24 hr cefuroxime axetil 250 mg tablet 250 mg PO Q12H #10 tabs 06/26/23 omeprazole 20 mg capsule,delayed 20 mg PO DAILY #30 caps 06/26/23 release ondansetron HCl 4 mg tablet 4 mg PO Q8-12H PRN nausea and 06/26/23 vomiting #7 tabs potassium chloride 10 mEq 10 meq PO DAILY #5 tabs 06/26/23 tablet,extended release ondansetron 4 mg disintegrating 4 mg PO Q6-8H PRN nausea and 08/06/23 tablet vomiting #20 tabs potassium chloride 20 mEq 20 meq PO DAILY #5 tabs 08/06/23 tablet,extended release Allergies Allergy/AdvReac Type Severity Reaction Status Date / Time hydromorphone [Dilaudid] Allergy Unknown hives Verified 08/06/23 03:17 metoclopramide [From Reglan] Allergy Unknown Verified 08/06/23 03:17 ibuprofen [From MOTRIN] AdvReac Mild STOMACH Verified 08/06/23 03:17 UPSET Review of Systems Review of Systems: Yes all other systems are reviewed and are negative PMFSH Past Medical History Medical History Shortness of breath Sinus tachycardia Cyclical vomiting Anxiety Ureteric calculus Family History Family History Father Heart disease Other Hypokalemia Social History Social History Household Members: Spouse and Children Housing: House Do you presently have visiting nurse or other home services: No Alcohol intake: current Alcohol intake frequency: does not drink Patient Tobacco Use Status: Never used Tobacco Smoked in Last 30 Days: No Use of substances other than those prescribed or required for medical reasons: Yes Substance Use Type: Marijuana Substance Use Frequency: Chronic Longstanding Advance Directives: No Advance Directives Information Provided: Yes Do you have a plan to hurt others: No Plan Patient : No Physical Exam Vital Signs: Vital Signs: Last Vital Signs Temp 98.1 F 08/06/23 09:42 Pulse 67 08/06/23 09:42 Resp 18 08/06/23 09:42 BP 98/62 08/06/23 09:42 Pulse Ox 100 08/06/23 09:42 O2 Del Method Room Air 08/06/23 09:42 BMI result Body Mass Index 27.4 Appearance: Alert. Oriented X3. No acute distress. Anxious Eyes: No pallor or icterus ENT: Pharynx normal. Oral Mucosa moist Neck: Normal inspection. Neck supple. CVS: Normal heart rate and rhythm. Pulses normal. Respiratory: No respiratory distress. Equal air entry bilateral, no wheezing/rales/rhonchi Abdomen: Soft and mild epigastric tenderness Bowel sounds are present, no mass palpable, no CVA tenderness Skin: Skin warm and dry. Normal skin color. Normal skin turgor. Extremities: No lower extremity edema. No calf tenderness Neuro: Oriented X 3. No motor deficit. Course Course Course Narrative: repeat droperidol refuses PO challenge due to being scared not persistent vomiting will try repeat medications qtc 473 after will PO challenge hx of same in past. no vomiting since 7am my arrival anticipate DC home ANASTASIA 08/06/23 847am Reevaluation(s) Reevaluation #1: the patient refuses to attempt any oral challenge and will not take oral potassium I prescribed potassium. she states she does not want to try to just in case she vomits but she has not vomited since my arrival at 7am which is 2.5 hours and even before then. At this time I am going to discharge her as she is not attempting intervention to get better. Medications Administered Discontinued Medications Generic Name Dose Route Start Last Admin Trade Name Hali PRN Reason Stop Dose Admin Droperidol 1.25 mg 08/06/23 08:24 08/06/23 08:31 Droperidol 5 Mg/2 Ml Vial IVPUSH 08/06/23 08:25 1.25 mg ONCE ONE Administration Sodium Chloride 1,000 mls @ 999 mls/hr 08/06/23 05:07 08/06/23 06:46 Ns IV 08/06/23 06:07 Infused .Q1H1M ONE Infusion Sodium Chloride 1,000 mls @ 999 mls/hr 08/06/23 07:30 08/06/23 09:21 Ns IV 08/06/23 08:30 Infused .Q1H1M ONE Infusion Lorazepam 2 mg 08/06/23 05:07 08/06/23 05:47 Lorazepam 2 Mg/Ml Vial IVPUSH 08/06/23 05:08 2 mg ONCE ONE Administration Potassium Chloride 20 meq 08/06/23 06:00 08/06/23 09:27 Potassium Chloride Er 20 Meq Tab.Er.Prt PO 08/06/23 06:01 Not Given ONCE ONE Prochlorperazine Edisylate 10 mg 08/06/23 05:07 08/06/23 05:47 Prochlorperazine Edisylate 10 Mg/2 Ml Vial IVPUSH 08/06/23 05:08 10 mg ONCE ONE Administration Medical Decision Making Medical Decision Making [facility] Narrative: Patient's cyclic vomiting syndrome with frequent leukocytosis secondary to volume loss smokes cannabis with increased anxiety examination showed mild epigastric tenderness no acute abdomen will give IV fluids Compazine Ativan and replace potassium re-evaluate and discharge the patient Differential Diagnosis Differential Diagnoses: The differential diagnosis associated with the presentation includes Cyclic vomiting syndrome/gastritis/cannabis abuse Lab Data [facility] Lab Attestation statement: I reviewed the patient's lab results. 08/06/23 03:33 08/06/23 03:33 Labs: Lab Results 08/06/23 Range/Units 03:33 WBC 19.3 H (4.8-10.8) X10*3/uL RBC 5.56 H (4.20-5.50) X10*6/uL Hgb 14.6 (12.0-16.0) g/dl Hct 42.5 (37.0-47.0) % MCV 76.4 L (80.0-98.0) fL MCH 26.3 L (27.0-33.0) pg MCHC 34.4 (31.0-35.0) g/dl RDW 14.6 (11.0-16.0) % Plt Count 332 D (160-400) X10*3/uL MPV 11.6 (9.4-12.3) fL Immature Gran % (Auto) 0.3 (0.0-0.4) % Neut % (Auto) 79.0 H (45-73) % Lymph % (Auto) 13.3 L (20-40) % Wilson % (Auto) 7.0 (2-11) % Eos % (Auto) 0.1 (0-4) % Baso % (Auto) 0.3 (0-2) % Lymph # (Auto) 2.6 (1.2-4.9) X10*3/uL Wilson # (Auto) 1.4 H (0.1-1.2) X10*3/uL Eos # (Auto) 0.0 (0.0-0.4) X10*3/uL Baso # (Auto) 0.1 (0.0-0.2) X10*3/uL Abs Immat Gran (auto) 0.06 H (0.00-0.03) X10*3/uL Absolute Neuts (auto) 15.3 H (2.0-8.3) x10*3/uL Absolute Nucleated RBC 0.000 (0.0-0.012) X10*3/uL Nucleated RBC % (auto) 0.0 (0.0-0.2) /100WBC Sodium 140 (135-145) mmol/L Potassium 3.2 L (3.3-5.1) mmol/L Chloride 101 (96-108) mmol/L Carbon Dioxide 24 (22-29) mmol/L Anion Gap 18 (12-20) BUN 14 (9-16) mg/dL Creatinine 0.99 (0.5-1.4) mg/dL Estim Creat Clear Calc 83.0 Estimated GFR > 60 Random Glucose 150 H (60-115) mg/dL Calcium 10.6 H D (8.4-10.2) mg/dL Troponin I High Sens < 2.7 (<3.5-17.0) ng/L Urine Color Dark Yellow Urine Appearance Cloudy Urine pH 6.0 (5.0-9.0) Ur Specific [place] 1.025 (1.005-1.025) Urine Protein 300 (3+) H (Neg-Trace) mg/dL Urine Glucose (UA) Negative (Negative) mg/dL Urine Ketones Negative (Negative) mg/dL Urine Blood Moderate (2+) H (Negative) Urine Nitrite Negative (Negative) Ur Leukocyte Esterase Trace H (Negative) Urine RBC >20 H (0-2) /HPF Urine WBC 11-20 H (0-5) /HPF Ur Squamous Epith Cells 11-20 (0-2) /HPF Urine Bacteria 1+ (None Seen) Hyaline Casts 3-5 (0-2) /LPF Urine Test NEGATIVE (NEGATIVE) Discharge Plan Discharge Clinical Impression: Cyclic vomiting syndrome, Acute hypokalemia Patient Disposition: Still a Patient Instructions: Hypokalemia (ED), Cyclic Vomiting Syndrome (ED) Additional Instructions: Drink plenty of fluids Stop smoking marijuana Medication for nausea as prescribed Prescriptions: New ondansetron 4 mg tablet,disintegrating 4 mg PO Q6-8H PRN (Reason: nausea and vomiting) Qty: 20 0RF potassium chloride 20 mEq tablet extended release 20 meq PO DAILY Qty: 5 0RF No Action metoprolol succinate 50 mg tablet extended release 24 hr 50 mg PO DAILY Qty: 90 1RF cefuroxime axetil 250 mg Tablet 250 mg PO Q12H Qty: 10 0RF ondansetron HCl 4 mg tablet 4 mg PO Q8-12H PRN (Reason: nausea and vomiting) Qty: 7 0RF potassium chloride 10 mEq tablet extended release 10 meq PO DAILY Qty: 5 0RF omeprazole 20 mg capsule,delayed release(DR/EC) 20 mg PO DAILY Qty: 30 0RF hydroxyzine HCl 25 mg tablet 25 mg PO TID PRN (Reason: anxiety) Interventions: ED Discharge Assessment Last Done: 08/06/23 09:42 Discharge Date/Time: 08/06/23 09:43 Print Language: Dutch
[2023-08-06] MEDS: Prochlorperazine Edisylate 10 MG/2 ML VIAL IVPUSH (05:47)
[2023-08-06] MEDS: LORazepam 2 MG/ML VIAL IVPUSH (05:47)
[2023-08-06] MEDS: 0.9 % Sodium Chloride 1,000 ML 999 ML IV ×2 (05:47→07:32)
[2023-08-06 06:48] VITALS: BP 98/62; PULSE 85; RESP 16; TEMP 36.7; O2SAT 100
--- NOTE | 2023-08-06 07:34 | PC.NURSE ---
this RN resumed care of pt at 0645. a&ox4. vss and up to date. pt prevents w/ vomiting r/t increased amount of marijuana usage. pt verbalizes smoking marijuana a few times a day to help w/ anxiety. IVF administered per provider order. pt still verbalizes feeling nauseous. provider notified/aware. delay in potassium administration as pt refuses because she states i will not be able to keep it down. will administer when able. no sob/wob noted. respirations even/unlabored. plan of care ongoing. call licea placed within reach.
[2023-08-06 08:11] VITALS: PULSE 67; RESP 18; O2SAT 100
[2023-08-06] MEDS: droPERidol 5 MG/2 ML VIAL 1.25 MG IVPUSH (08:31)
--- NOTE | 2023-08-06 08:32 | PC.NURSE ---
pt verbalizes feeling nauseous. medication administered per provider order. effectiveness pending.
--- NOTE | 2023-08-06 09:27 | PC.NURSE ---
reattempted to administer PO potassium. pt verbalizes hell no! i'm not taking that! pt then re-educated on the importance of medication administration. pt still refusing. notified/aware.
[2023-08-06 09:42] VITALS: BP 98/62; PULSE 67; RESP 18; TEMP 36.7; O2SAT 100
== END 2023-08-06 09:43 | disposition still patient (30) ==
PROVIDERS: Emergency Provider Internal Medicine
DX: R11.2 Nausea with vomiting, unspecified (principal); F12.19 Cannabis abuse with unspecified cannabis-induced disorder; E87.6 Hypokalemia; I49.8 Other specified cardiac arrhythmias; R10.13 Epigastric pain; F19.980 Other psychoactive substance use, unspecified with psychoactive substance-induced anxiety disorder; Z79.899 Other long term (current) drug therapy
CPT/HCPCS: 36415; 71045; 80048; 81001; 81025; 84484; 85025; 87086; 93005; 96361; 96374; 96375; 99284; 99285; J0737; J1790; J2060

== ENCOUNTER → 2023-08-06 03:19 | Outpatient (BNV) | payer OTHER, SELFPAY | PROVIDERS: Emergency Provider Internal Medicine; Visit Provider Internal Medicine Cardiovascular Disease | DX: I49.9 Cardiac arrhythmia, unspecified (principal) | CPT/HCPCS: 93010 ==

== ENCOUNTER 2023-09-08 07:55 | Emergency (ER) | payer OTHER, SELFPAY ==
--- NOTE | 2023-09-08 | ECG_ITS ---
Test Reason : chest pain Blood Pressure : / mmHG Vent. Rate : 088 BPM Atrial Rate : 088 BPM P-R Int : 128 ms QRS Dur : 080 ms QT Int : 372 ms P-R-T Axes : 042 033 059 degrees QTc Int : 450 ms Normal sinus rhythm Normal ECG When compared with ECG of 06-AUG-2023 03:24, Nonspecific T wave abnormality no longer evident in Anterior leads Referred By: Anibal Choudhury Electronically Signed By:Osmani Quesada
--- NOTE | 2023-09-08 08:02 | ED.GENADULT ---
HPI - General Adult General Chief complaint: Chest Pain Stated complaint: nausea vomiting Time Seen by Provider: 09/08/23 08:00 Source: patient Mode of arrival: ambulatory Limitations: no limitations History of Present Illness ED Provider: matt KUMAR narrative: Patient is a 38-year-old female presenting to the ED with complaint of nausea and vomiting since last night. Denies diarrhea or abdominal pain. Denies fever. States daughter was recently sick with similar symptoms. Also complaining of intermittent chest pain. Denies dyspnea, palpitations. Denies recent calf pain or swelling. MD complaint: nausea and vomiting Onset (ago): hour(s) Associated symptoms: chest pain Treatments prior to arrival: none Related Data Home Medications ?Medication ?Instructions ?Recorded ?Confirmed hydroxyzine HCl 25 mg tablet 25 mg PO TID PRN anxiety 12/03/22 06/25/23 Previous Rx's ?Medication ?Instructions ?Recorded metoprolol succinate 50 mg 50 mg PO DAILY #90 tabs 02/16/23 tablet,extended release 24 hr cefuroxime axetil 250 mg tablet 250 mg PO Q12H #10 tabs 06/26/23 omeprazole 20 mg capsule,delayed 20 mg PO DAILY #30 caps 06/26/23 release ondansetron HCl 4 mg tablet 4 mg PO Q8-12H PRN nausea and 06/26/23 vomiting #7 tabs potassium chloride 10 mEq 10 meq PO DAILY #5 tabs 06/26/23 tablet,extended release ondansetron 4 mg disintegrating 4 mg PO Q6-8H PRN nausea and 08/06/23 tablet vomiting #20 tabs potassium chloride 20 mEq 20 meq PO DAILY #5 tabs 08/06/23 tablet,extended release ondansetron 4 mg disintegrating 4 mg PO Q8H PRN nausea and 09/08/23 tablet vomiting #9 tabs Allergies Allergy/AdvReac Type Severity Reaction Status Date / Time hydromorphone [Dilaudid] Allergy Unknown hives Verified 09/08/23 08:04 metoclopramide [From Reglan] Allergy Unknown Verified 09/08/23 08:03 ibuprofen [From MOTRIN] AdvReac Mild STOMACH Verified 09/08/23 08:03 UPSET Review of Systems Review of Systems: As per HPI. Yes all other systems are reviewed and are negative Constitutional: Constitutional: Reports as per HPI [facility] Past Medical History Medical History Shortness of breath Sinus tachycardia Cyclical vomiting Anxiety Ureteric calculus Family History Family History Father Heart disease Other Hypokalemia Social History Social History Household Members: Spouse and Children Housing: House Do you presently have visiting nurse or other home services: No Alcohol intake: current Alcohol intake frequency: does not drink Patient Tobacco Use Status: Never used Tobacco Substance Use Type: Marijuana Advance Directives: No Do you have a plan to hurt others: No Plan Physical Exam ED Vital Signs: Vital Signs - 24 hr 09/08/23 10:19 Pulse Rate 78 Respiratory Rate 16 Blood Pressure 112/56 L Pulse Oximetry 100 Oxygen Delivery Method Room Air BMI result Body Mass Index 26.6 Const General: cooperative, healthy appearing and no acute distress Orientation/consciousness: oriented to person, oriented to place, oriented to time and patient oriented x3 Limitations: no limitations HENMT Head: Yes normocephalic and Yes atraumatic Ears: external ears normal General nose exam: Normal external nose present Face and sinus: Yes face symmetric Mouth: oropharynx normal and moist mucous membranes Throat: Yes uvula midline Eyes Pupils: Equal, round and reactive pupils present Neck Neck: Yes normal visual inspection and Yes supple Resp Effort & Inspection: normal respiratory effort and able to speak in complete sentences Auscultation: clear to auscultation bilaterally Cardio Rate: regular rate Rhythm: regular rhythm Heart sounds: S1 normal heart sound present and S2 normal heart sound present GI Palpation (GI): Soft to palpation and nontender Auscultation: normoactive bowel sounds General: Yes no CVA tenderness Back/Spine/Pelvis Back: no CVA tenderness Skin General skin exam: elasticity normal and turgor normal Neuro General: oriented to person, oriented to place, oriented to time, patient oriented x3, moves all extremities, no focal motor deficits and CN's II-XI intact bilaterally Cranial nerves: Yes Equal, round and reactive pupils present Cognition (Neuro): normal cognition Extrem General: Yes full ROM, Yes no pedal edema and Yes no calf tenderness Psych Mental Status: mental status grossly normal Affect: normal affect Thought process: Normal thought process present Medications Administered Discontinued Medications Generic Name Dose Route Start Last Admin Trade Name Hali PRN Reason Stop Dose Admin Sodium Chloride 1,000 mls @ 999 mls/hr 09/08/23 08:30 09/08/23 09:49 Ns IV 09/08/23 09:30 Infused .Q1H1M KANDY Infusion Ketorolac Tromethamine 15 mg 09/08/23 09:18 09/08/23 09:23 Ketorolac Tromethamine 15 Mg/Ml Vial IVPUSH 09/08/23 09:19 15 mg ONCE ONE Administration Ondansetron HCl 4 mg 09/08/23 08:23 09/08/23 08:30 Ondansetron Hcl 4 Mg/2 Ml Vial IVPUSH 09/08/23 08:24 4 mg ONCE ONE Administration Medical Decision Making Medical Decision Making [facility] Narrative: Patient is a 38-year-old female presenting to the ED with complaint of nausea and vomiting since last night. On exam patient is awake, A+Ox3, VS WNL, afebrile, normal neurological exam without focal deficits, physical exam findings as above. Given reported symptoms and physical exam findings, initial differential includes viral illness, gastritis, GERD, PUD, cyclical vomiting syndrome. Labs notable for slight leukocytosis likely due to vomiting, no evidence of RADHAMES, negative troponin, negative HCG, normal transaminases. Urinalysis notable for trace leukocytes, 1+ blood, 6-10 epithelials. Given that patient denies urinary symptoms, feel this is likely due to contamination and will wait for urine culture before treating with antibiotics. Patient states symptoms have improved with fluids and zofran, is able to tolerate PO fluids and feels comfortable with discharge home. Feel patient is stable for discharge, likely viral illness. Will send prescription for zofran. Follow up with PCP. Return precautions discussed. Patient verbalized understanding of and agreement with plan. Differential Diagnosis Differential Diagnoses: The differential diagnosis associated with the presentation includes As per [facility] Lab Data [facility] Lab Attestation statement: I reviewed the patient's lab results. As per [facility] 09/08/23 08:09 09/08/23 08:09 Labs: Lab Results 09/08/23 09/08/23 Range/Units 08:09 08:17 WBC 11.3 H (4.8-10.8) X10*3/uL RBC 5.29 (4.20-5.50) X10*6/uL Hgb 13.7 (12.0-16.0) g/dl Hct 41.0 (37.0-47.0) % MCV 77.5 L (80.0-98.0) fL MCH 25.9 L (27.0-33.0) pg MCHC 33.4 (31.0-35.0) g/dl RDW 14.5 (11.0-16.0) % Plt Count 281 (160-400) X10*3/uL MPV 11.5 (9.4-12.3) fL Immature Gran % (Auto) 0.4 (0.0-0.4) % Neut % (Auto) 77.9 H (45-73) % Lymph % (Auto) 17.1 L (20-40) % [place] % (Auto) 4.2 (2-11) % Eos % (Auto) 0.1 (0-4) % Baso % (Auto) 0.3 (0-2) % Lymph # (Auto) 1.9 (1.2-4.9) X10*3/uL [place] # (Auto) 0.5 (0.1-1.2) X10*3/uL Eos # (Auto) 0.0 (0.0-0.4) X10*3/uL Baso # (Auto) 0.0 (0.0-0.2) X10*3/uL Abs Immat Gran (auto) 0.04 H (0.00-0.03) X10*3/uL Absolute Neuts (auto) 8.8 H (2.0-8.3) x10*3/uL Absolute Nucleated RBC 0.000 (0.0-0.012) X10*3/uL Nucleated RBC % (auto) 0.0 (0.0-0.2) /100WBC Sodium 139 (135-145) mmol/L Potassium 3.8 (3.3-5.1) mmol/L Chloride 108 (96-108) mmol/L Carbon Dioxide 22 (22-29) mmol/L Anion Gap 13 (12-20) BUN 8 L (9-16) mg/dL Creatinine 0.79 (0.5-1.4) mg/dL Estim Creat Clear Calc 109.0 Estimated GFR > 60 Random Glucose 114 (60-115) mg/dL Calcium 9.5 D (8.4-10.2) mg/dL Magnesium 1.9 (1.6-2.6) mg/dL Total Bilirubin 0.8 (0.0-1.0) mg/dL AST 12 (5-31) U/L ALT 10 (0-31) U/L Alkaline Phosphatase 68 (39-117) U/L Troponin I High Sens < 2.7 (<3.5-17.0) ng/L Total Protein 7.1 (6.5-8.0) g/dL Albumin 4.1 (3.5-5.0) g/dL Beta HCG, Quant < 2 mIU/mL Urine Color Yellow Urine Appearance Clear Urine pH 7.5 (5.0-9.0) Ur Specific [place] 1.015 (1.005-1.025) Urine Protein 30 (1+) H (Neg-Trace) mg/dL Urine Glucose (UA) Negative (Negative) mg/dL Urine Ketones 15 (Negative) mg/dL Urine Blood Small (1+) H (Negative) Urine Nitrite Negative (Negative) Ur Leukocyte Esterase Trace H (Negative) Urine RBC >20 H (0-2) /HPF Urine WBC 0-5 (0-5) /HPF Ur Squamous Epith Cells 6-10 (0-2) /HPF Urine Bacteria 1+ (None Seen) Hyaline Casts 0-2 (0-2) /LPF Influenza Type A (PCR) NEGATIVE (Negative) Influenza Type B (PCR) NEGATIVE (Negative) RSV RNA Qual (PCR) NEGATIVE (Negative) SARS-CoV-2 RNA (RT-PCR) NEGATIVE (Negative) S. pyogenes GrpA JARAD Negative (Negative) External Record Review External record reviewed: Inpatient record, Office record and Outpatient record Prescription Management I considered prescription management with: Other Discharge Plan Discharge Clinical Impression: Nausea & vomiting Patient Disposition: Home, Self-Care Instructions: Acute Nausea and Vomiting (ED) Additional Instructions: You were evaluated in the emergency department today for nausea and vomiting which is most likely due to irritation of the lining of your stomach. Your symptoms improved with medication in the ED. You are being prescribed zofran which you can take every 8 hours for nausea. You can use Mylanta, which is available over the counter, to help manage your symptoms. Avoid spicy or acidic foods. Stick to clear fluids until symptoms improve then progress to a bland diet. Please follow up with your primary care physician within two days. Return to the emergency department if you experience shortness of breath, worsening or uncontrolled abdominal pain, chest pain, light headedness, faiting, persistent nausea and vomiting, bloody vomit or stools, black, tarry stools, or any other concerning symptoms. Prescriptions: New ondansetron 4 mg tablet,disintegrating 4 mg PO Q8H PRN (Reason: nausea and vomiting) Qty: 9 0RF No Action metoprolol succinate 50 mg tablet extended release 24 hr 50 mg PO DAILY Qty: 90 1RF ondansetron 4 mg tablet,disintegrating 4 mg PO Q6-8H PRN (Reason: nausea and vomiting) Qty: 20 0RF potassium chloride 20 mEq tablet extended release 20 meq PO DAILY Qty: 5 0RF cefuroxime axetil 250 mg Tablet 250 mg PO Q12H Qty: 10 0RF ondansetron HCl 4 mg tablet 4 mg PO Q8-12H PRN (Reason: nausea and vomiting) Qty: 7 0RF potassium chloride 10 mEq tablet extended release 10 meq PO DAILY Qty: 5 0RF omeprazole 20 mg capsule,delayed release(DR/EC) 20 mg PO DAILY Qty: 30 0RF hydroxyzine HCl 25 mg tablet 25 mg PO TID PRN (Reason: anxiety) Stand Alone Forms: Work/School Release Print Language: Turkmen
[2023-09-08 08:04] VITALS: BMI 26.6
--- NOTE | 2023-09-08 08:14 | PC.NURSE ---
a&ox4. vss and up to date. nsr on the security monitor. pt presents to the ED w/ left sided chest pain - fluttering in nature. pt also reports n/v. sx a yesterday. denies abd pain/fever/chills. 20gIV placed in the left AC - labs obtained/sent to lab. ekg performed by tech. no sob/wob noted. respirations even/unlabored. plan of care ongoing. call licea placed within reach.
[2023-09-08 08:17] LABS: MANUAL DIFF FLAG NO
[2023-09-08 08:21] LABS: Basophils Percent Auto 0.3 % (0-2); Eosinophils Percent Auto 0.1 % (0-4); Hemoglobin 13.7 g/dl (12.0-16.0); Imm Gran Abs Auto 0.04 X10*3/uL (0.00-0.03); Imm Gran Pct Auto 0.4 % (0.0-0.4); Lymphocytes Absolute Auto 1.9 X10*3/uL (1.2-4.9); Lymphocytes Percent Auto 17.1 % (20-40); Mean Corpuscular HGB Conc 33.4 g/dl (31.0-35.0); Mean Corpuscular Hemoglobin 25.9 pg (27.0-33.0); Mean Corpuscular Volume 77.5 fL (80.0-98.0); Mean Platelet Volume 11.5 fL (9.4-12.3); Monocytes Absolute Auto 0.5 X10*3/uL (0.1-1.2); Monocytes Percent Auto 4.2 % (2-11); Neutrophils Absolute Auto 8.8 x10*3/uL (2.0-8.3); Neutrophils Percent Auto 77.9 % (45-73); Platelet Count 281 X10*3/uL (160-400); Red Blood Count 5.29 X10*6/uL (4.20-5.50); Red Cell Distribution Width 14.5 % (11.0-16.0); White Blood Count 11.3 X10*3/uL (4.8-10.8)
[2023-09-08 08:29] LABS: IDNOW Serial# 08D9AD1C; Strep A Nucleic Acid Negative (Negative)
[2023-09-08 08:30] LABS: Appearance Urine Clear; Color Urine Yellow; Glucose Urine UA Negative (Negative); Leukocyte Esterase Urine Trace (Negative); Nitrite Urine Negative (Negative); PH 7.5 (5.0-9.0); Specific Gravity - Urine 1.015 (1.005-1.025); UMIC TRIGGER UACC YES; Urine Blood Small (1+) (Negative); Urine Ketones 15 mg/dL (Negative); Urine Protein 30 (1+) mg/dL (Neg-Trace)
[2023-09-08] MEDS: 0.9 % Sodium Chloride 1,000 ML 999 ML IV (08:30)
[2023-09-08] MEDS: ondansetron HCL 4 MG/2 ML VIAL IVPUSH (08:30)
[2023-09-08 08:35] LABS: Bacteria Urine 1+ (None Seen); Hyaline Casts Urine 0-2 /LPF (0-2); RBC Urine >20 /HPF (0-2); WBC Urine 0-5 /HPF (0-5)
[2023-09-08 08:44] LABS: Alanine Aminotransferase 10 U/L (0-31); Albumin Level 4.1 g/dL (3.5-5.0); Alkaline Phosphatase 68 U/L (39-117); Anion Gap 13 (12-20); Aspartate Amino Transferase 12 U/L (5-31); Bilirubin Total 0.8 mg/dL (0.0-1.0); Blood Urea Nitrogen 8 mg/dL (9-16); Calcium 9.5 mg/dL (8.4-10.2); Carbon Dioxide 22 mmol/L (22-29); Chloride 108 mmol/L (96-108); Estimated Glomerular Filt Rate > 60; Glucose Random 114 mg/dL (60-115); Magnesium 1.9 mg/dL (1.6-2.6); Potassium 3.8 mmol/L (3.3-5.1); Sodium 139 mmol/L (135-145); Total Protein 7.1 g/dL (6.5-8.0)
[2023-09-08 08:48] LABS: HCG Quantitative < 2 mIU/mL; Troponin-I High Sensitivity < 2.7 ng/L (<3.5-17.0)
[2023-09-08 08:55] LABS: Influenza A PCR NEGATIVE (Negative); Influenza B PCR NEGATIVE (Negative); Resp Syncy Virus RNA Qual PCR NEGATIVE (Negative); SARS COV2 PCR INHOUSE NEGATIVE (Negative)
[2023-09-08] MEDS: Ketorolac Tromethamine 15 MG/ML VIAL IVPUSH (09:23)
--- NOTE | 2023-09-08 09:23 | PC.NURSE ---
pt c/o 09/17 GAXIOLA - medication administered per provider order. effectiveness pending.
[2023-09-08 10:19] VITALS: BP 112/56; PULSE 78; RESP 16; O2SAT 100
[2023-09-08 11:20] VITALS: BP 130/68; PULSE 90; RESP 16; TEMP 36.9; O2SAT 99
[2023-09-08 11:31] VITALS: BP 130/68; PULSE 90; RESP 16; TEMP 36.9; O2SAT 99
== END 2023-09-08 11:31 | disposition home or self-care (01) ==
PROVIDERS: Registered Nurse Emergency; Emergency Provider Emergency Medicine
DX: R07.89 Other chest pain (principal); R11.2 Nausea with vomiting, unspecified; Z79.899 Other long term (current) drug therapy
CPT/HCPCS: 0241U; 36415; 80053; 81001; 83735; 84484; 84702; 85025; 87651; 93005; 96361; 96374; 96375; 99284; J1885; J2405

== ENCOUNTER → 2023-09-08 08:01 | Outpatient (BNV) | payer OTHER, SELFPAY | PROVIDERS: Emergency Provider Emergency Medicine; Visit Provider Internal Medicine Cardiovascular Disease | DX: R07.9 Chest pain, unspecified (principal) | CPT/HCPCS: 93010 ==

== ENCOUNTER 2023-10-06 02:40 | Emergency (ER) | payer OTHER, SELFPAY ==
[2023-10-06 02:44] VITALS: BP 142/98; PULSE 102; RESP 22; TEMP 36.3; O2SAT 98; BMI 28.4
[2023-10-06 03:05] LABS: MANUAL DIFF FLAG NO
--- NOTE | 2023-10-06 03:05 | MHC.EDTECH ---
Pt refusing EKG at this time, also unable to hold still
[2023-10-06 03:06] LABS: Basophils Absolute Auto 0.1 X10*3/uL (0.0-0.2); Basophils Percent Auto 0.6 % (0-2); Eosinophils Absolute Auto 0.1 X10*3/uL (0.0-0.4); Hematocrit 38.8 % (37.0-47.0); Hemoglobin 13.1 g/dl (12.0-16.0); Imm Gran Abs Auto 0.05 X10*3/uL (0.00-0.03); Imm Gran Pct Auto 0.4 % (0.0-0.4); Lymphocytes Absolute Auto 1.3 X10*3/uL (1.2-4.9); Lymphocytes Percent Auto 11.2 % (20-40); Mean Corpuscular HGB Conc 33.8 g/dl (31.0-35.0); Mean Corpuscular Hemoglobin 26.1 pg (27.0-33.0); Mean Corpuscular Volume 77.4 fL (80.0-98.0); Mean Platelet Volume 11.3 fL (9.4-12.3); Monocytes Absolute Auto 1.1 X10*3/uL (0.1-1.2); Monocytes Percent Auto 9.9 % (2-11); Neutrophils Absolute Auto 8.9 x10*3/uL (2.0-8.3); Neutrophils Percent Auto 76.9 % (45-73); Platelet Count 260 X10*3/uL (160-400); Red Blood Count 5.01 X10*6/uL (4.20-5.50); Red Cell Distribution Width 15.2 % (11.0-16.0); White Blood Count 11.5 X10*3/uL (4.8-10.8)
[2023-10-06] MEDS: 0.9 % Sodium Chloride 1,000 ML 999 ML IV (03:10)
[2023-10-06] MEDS: LORazepam 2 MG/ML VIAL 1 MG IVPUSH (03:11)
[2023-10-06] MEDS: droPERidol 5 MG/2 ML VIAL 1.25 MG IVPUSH (03:11)
--- NOTE | 2023-10-06 03:11 | ED_ITS ---
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 She states she isn't smoking THC. She didn't eat anything unusual this has happened to her many times before. RAYSHAWN is going around her work. On arrival here she is stripping off her clothes, running back and forth to the bathroom, yelling out. MD elicited complaint: nausea, vomiting and abdominal pain Pertinent past history: cyclical vomiting Onset (ago): hour(s) (1) Description of vomiting: watery Description of diarrhea: watery Associated nausea: Yes Associated abdominal pain: Yes Location of pain: diffuse Radiation: diffuse Pain consistency: constant Severity: similar to previous episodes Quality: aching and constant Exacerbating factors: eating and movement Relieving factors: movement Context: other (cyclical vomiting) Associated symptoms: myalgias, loss of appetite, malaise, nausea/vomiting and weakness Related Data Home Medications ?Medication ?Instructions ?Recorded ?Confirmed hydroxyzine HCl 25 mg tablet 25 mg PO TID PRN anxiety 12/03/22 06/25/23 Previous Rx's ?Medication ?Instructions ?Recorded metoprolol succinate 50 mg 50 mg PO DAILY #90 tabs 02/16/23 tablet,extended release 24 hr cefuroxime axetil 250 mg tablet 250 mg PO Q12H #10 tabs 06/26/23 omeprazole 20 mg capsule,delayed 20 mg PO DAILY #30 caps 06/26/23 release ondansetron HCl 4 mg tablet 4 mg PO Q8-12H PRN nausea and 06/26/23 vomiting #7 tabs potassium chloride 10 mEq 10 meq PO DAILY #5 tabs 06/26/23 tablet,extended release ondansetron 4 mg disintegrating 4 mg PO Q6-8H PRN nausea and 08/06/23 tablet vomiting #20 tabs potassium chloride 20 mEq 20 meq PO DAILY #5 tabs 08/06/23 tablet,extended release ondansetron 4 mg disintegrating 4 mg PO Q8H PRN nausea and 09/08/23 tablet vomiting #9 tabs ondansetron 4 mg disintegrating 4 mg PO Q8H PRN nausea and 10/06/23 tablet vomiting #20 tabs Allergies Allergy/AdvReac Type Severity Reaction Status Date / Time hydromorphone [Dilaudid] Allergy Unknown hives Verified 10/06/23 02:44 metoclopramide [From Reglan] Allergy Unknown Verified 10/06/23 02:44 ibuprofen [From MOTRIN] AdvReac Mild STOMACH Verified 10/06/23 02:44 UPSET Review of Systems 2 Review of Systems: Constitutional : No Weight loss, No Fever, No Chills ENT/Mouth : No sore throat, No Rhinorrhea Eyes: No Swelling, No Redness Cardiovascular : No Chest Pain, No SOB, NoEdema Respiratory : No Cough, No Sputum, No Wheezing Gastrointestinal : Positive Nausea, Positive Vomiting, positive Diarrhea, positive abdominal Pain, No Hematochezia, No Melena Genitourinary : No Dysuria, No Urinary Frequency, No Hematuria, No Urgency Musculoskeletal : No joint pain, pos Myalgias, No Joint Swelling Skin : No Skin Lesions, No rash Neuro : No Weakness, No Numbness, No Dizziness, No Headache Psych : pos Anxiety/Panic, No Depression All other systems reviewed and are negative. Gastrointestinal: Gastrointestinal: Reports nausea PMFSH Past Medical History Attestation statement: The following information was validated with the patient. Source: old records reviewed Medical History Shortness of breath Sinus tachycardia Cyclical vomiting Anxiety Ureteric calculus Family History Family History Father Heart disease Other Hypokalemia Social History Social History Household Members: Spouse and Children Housing: House Do you presently have visiting nurse or other home services: No Alcohol intake: current Alcohol intake frequency: holidays/special occasions only Patient Tobacco Use Status: Never used Tobacco Substance Use Type: Marijuana Physical Exam 2 Vital Signs: Vital Signs: Last Vital Signs Temp 98.3 F 10/06/23 06:10 Pulse 95 10/06/23 06:10 Resp 16 10/06/23 06:10 BP 128/80 10/06/23 06:10 Pulse Ox 97 10/06/23 06:10 O2 Del Method Room Air 10/06/23 06:10 BMI result Body Mass Index 28.4 Appearance: Alert. Oriented X3. Yelling writhing around moving very restless moderate acute distress. Eyes: Pupils equal, round and reactive to light. ENT: Pharynx normal. Neck: Normal inspection. Neck supple. CVS: Normal heart rate and rhythm. Pulses normal. Respiratory: No respiratory distress. Breath sounds normal. Abdomen: Soft and moderate diffuse ttp no rebound Skin: Skin warm and dry. Normal skin color. Normal skin turgor. Extremities: No lower extremity edema. No calf ttp Neuro: Oriented X 3. No motor deficit. No sensory deficit. Course Course Course Narrative: repeat IV ativan for anxiety and nausea Reevaluation(s) Reevaluation #1: I woke the patient up after she slept for hours and told her she had COVID she then proceeded again to act restless crying that she had covid she got up and ran to the bathroom and started to yell loudly Medications Administered Discontinued Medications Generic Name Dose Route Start Last Admin Trade Name Freq PRN Reason Stop Dose Admin Diphenoxylate HCl/Atropine 1 tab 10/06/23 03:08 10/06/23 03:15 Diphenoxylate/Atrop 2.5/0.025 Tablet PO 10/06/23 03:09 1 tab ONCE ONE Administration Droperidol 1.25 mg 10/06/23 02:54 10/06/23 03:11 Droperidol 5 Mg/2 Ml Vial IVPUSH 10/06/23 02:55 1.25 mg ONCE ONE Administration Sodium Chloride 1,000 mls @ 999 mls/hr 10/06/23 02:54 10/06/23 04:15 Ns IV 10/06/23 03:54 Infused .Q1H1M ONE Infusion Lorazepam 1 mg 10/06/23 02:54 10/06/23 03:11 Lorazepam 2 Mg/Ml Vial IVPUSH 10/06/23 02:55 1 mg STAT STA Administration Lorazepam 2 mg 10/06/23 04:31 10/06/23 04:38 Lorazepam 2 Mg/Ml Vial IVPUSH 10/06/23 04:32 2 mg ONCE ONE Administration Ondansetron HCl 4 mg 10/06/23 06:18 10/06/23 06:27 Ondansetron Hcl 4 Mg/2 Ml Vial IVPUSH 10/06/23 06:19 4 mg ONCE ONE Administration Medical Decision Making Medical Decision Making [facility] Narrative: 38 yo female with PMH of UTI, anxiety, renal colic, cyclical vomiting here with abrupt onset of n/v abdominal pain anxiety and myalgias at this time she has presented this way several times in the past will obtain basic labs, IVF, EKG for qtc when she stops moving, supportive medications. She has presented this way several times in past. Suspect viral syndrome vs cyclical vomiting Differential Diagnosis Differential Diagnoses: The differential diagnosis associated with the presentation includes viral syndrome vs cyclical vomiting Admission/Observation Consideration of admission/observation: Escalation of care including admission/observation considered tolerating PO, she was anxious several times but improved did have anxiety when told about COVID Lab Data [facility] Lab Attestation statement: I reviewed the patient's lab results. 10/06/23 03:01 10/06/23 03:01 Labs: Lab Results 10/06/23 10/06/23 Range/Units 03:01 04:36 WBC 11.5 H (4.8-10.8) X10*3/uL RBC 5.01 (4.20-5.50) X10*6/uL Hgb 13.1 (12.0-16.0) g/dl Hct 38.8 (37.0-47.0) % MCV 77.4 L (80.0-98.0) fL MCH 26.1 L (27.0-33.0) pg MCHC 33.8 (31.0-35.0) g/dl RDW 15.2 (11.0-16.0) % Plt Count 260 (160-400) X10*3/uL MPV 11.3 (9.4-12.3) fL Immature Gran % (Auto) 0.4 (0.0-0.4) % Neut % (Auto) 76.9 H (45-73) % Lymph % (Auto) 11.2 L (20-40) % [place] % (Auto) 9.9 (2-11) % Eos % (Auto) 1.0 (0-4) % Baso % (Auto) 0.6 (0-2) % Lymph # (Auto) 1.3 (1.2-4.9) X10*3/uL [place] # (Auto) 1.1 (0.1-1.2) X10*3/uL Eos # (Auto) 0.1 (0.0-0.4) X10*3/uL Baso # (Auto) 0.1 (0.0-0.2) X10*3/uL Abs Immat Gran (auto) 0.05 H (0.00-0.03) X10*3/uL Absolute Neuts (auto) 8.9 H (2.0-8.3) x10*3/uL Absolute Nucleated RBC 0.000 (0.0-0.012) X10*3/uL Nucleated RBC % (auto) 0.0 (0.0-0.2) /100WBC Sodium 141 (135-145) mmol/L Potassium 3.8 (3.3-5.1) mmol/L Chloride 110 H (96-108) mmol/L Carbon Dioxide 18 L (22-29) mmol/L Anion Gap 17 (12-20) BUN 10 (9-16) mg/dL Creatinine 0.83 (0.5-1.4) mg/dL Estim Creat Clear Calc 99.8 Estimated GFR > 60 Random Glucose 172 H (60-115) mg/dL Calcium 9.2 (8.4-10.2) mg/dL Magnesium 2.0 (1.6-2.6) mg/dL Total Bilirubin 0.6 (0.0-1.0) mg/dL Direct Bilirubin 0.2 (0.0-0.5) mg/dL AST 11 (5-31) U/L ALT 10 (0-31) U/L Alkaline Phosphatase 61 (39-117) U/L Total Protein 6.9 (6.5-8.0) g/dL Albumin 4.1 (3.5-5.0) g/dL Lipase 22 (8-78) U/L Beta HCG, Quant < 2 mIU/mL Influenza Type A (PCR) NEGATIVE (Negative) Influenza Type B (PCR) NEGATIVE (Negative) RSV RNA Qual (PCR) NEGATIVE (Negative) SARS-CoV-2 RNA (RT-PCR) POSITIVE A (Negative) Independent Interpretation I performed an independent interpretation of an: EKG Interpretation: Rate: Rhythm: [place]: Normal P waves. Normal [place]. Normal QRS complex. ST T wave : qTC: prior studies: The study has been interpreted contemporaneously by me. . External Record Review External record reviewed: Inpatient record Critical Care Time Critical Care Time Critical Care Time: Yes Total Critical Care Time: 60 Attestation: IVF, repeat IV ativan for anxiety and nausea, review of records, repeat assessments I attest to this time spent taking care of the patient Discharge Plan Discharge Clinical Impression: Cyclical vomiting, Anxiety, COVID-19 Patient Disposition: Still a Patient Instructions: Acute Nausea and Vomiting (ED), Anxiety (ED), COVID-19 (Coronavirus Disease 2019) (ED) Additional Instructions: stay hydrated, rest, wear a mask protect others alternate motrin and tylenol for pain/fevers return for any worsening symptoms or concerns - chest pain, difficulty breathing, unable to eat or drink or any other concerns Prescriptions: New ondansetron 4 mg tablet,disintegrating 4 mg PO Q8H PRN (Reason: nausea and vomiting) Qty: 20 0RF No Action metoprolol succinate 50 mg tablet extended release 24 hr 50 mg PO DAILY Qty: 90 1RF ondansetron 4 mg tablet,disintegrating 4 mg PO Q6-8H PRN (Reason: nausea and vomiting) Qty: 20 0RF potassium chloride 20 mEq tablet extended release 20 meq PO DAILY Qty: 5 0RF ondansetron 4 mg tablet,disintegrating 4 mg PO Q8H PRN (Reason: nausea and vomiting) Qty: 9 0RF cefuroxime axetil 250 mg Tablet 250 mg PO Q12H Qty: 10 0RF ondansetron HCl 4 mg tablet 4 mg PO Q8-12H PRN (Reason: nausea and vomiting) Qty: 7 0RF potassium chloride 10 mEq tablet extended release 10 meq PO DAILY Qty: 5 0RF omeprazole 20 mg capsule,delayed release(DR/EC) 20 mg PO DAILY Qty: 30 0RF hydroxyzine HCl 25 mg tablet 25 mg PO TID PRN (Reason: anxiety) Stand Alone Forms: Work/School Release Print Language: Telugu
[2023-10-06] MEDS: Diphenoxylate/Atrop 2.5/0.025 TABLET 1 TAB PO (03:15)
--- NOTE | 2023-10-06 03:19 | PC.NURSE ---
pt a&o, with nausea and diarrhea. Medicated per apr, Iv placed and fluids hung.
[2023-10-06 03:27] LABS: Alanine Aminotransferase 10 U/L (0-31); Albumin Level 4.1 g/dL (3.5-5.0); Alkaline Phosphatase 61 U/L (39-117); Anion Gap 17 (12-20); Aspartate Amino Transferase 11 U/L (5-31); Bilirubin Direct 0.2 mg/dL (0.0-0.5); Bilirubin Total 0.6 mg/dL (0.0-1.0); Blood Urea Nitrogen 10 mg/dL (9-16); Calcium 9.2 mg/dL (8.4-10.2); Carbon Dioxide 18 mmol/L (22-29); Chloride 110 mmol/L (96-108); Creatinine Clr Calc Pharmacy 99.8; Estimated Glomerular Filt Rate > 60; Glucose Random 172 mg/dL (60-115); Lipase 22 U/L (8-78); Potassium 3.8 mmol/L (3.3-5.1); Sodium 141 mmol/L (135-145); Total Protein 6.9 g/dL (6.5-8.0)
[2023-10-06 03:33] LABS: HCG Quantitative < 2 mIU/mL
--- NOTE | 2023-10-06 03:37 | MHC.EDTECH ---
Pt refusing EKG
--- NOTE | 2023-10-06 03:42 | MHC.EDTECH ---
Pt refusing EKG, Dr. Stapleton informed, RN Arpita Cade
[2023-10-06 03:58] VITALS: BP 116/67; PULSE 100; RESP 16; TEMP 36.8; O2SAT 96
--- NOTE | 2023-10-06 04:15 | PC.NURSE ---
pt resting at this time.
[2023-10-06] MEDS: LORazepam 2 MG/ML VIAL IVPUSH (04:38)
--- NOTE | 2023-10-06 04:44 | PC.NURSE ---
medicated per mar
[2023-10-06 05:16] LABS: Influenza A PCR NEGATIVE (Negative); Influenza B PCR NEGATIVE (Negative); Resp Syncy Virus RNA Qual PCR NEGATIVE (Negative); SARS COV2 PCR INHOUSE POSITIVE (Negative)
--- NOTE | 2023-10-06 05:38 | PC.NURSE ---
pt sleeping no sign of respiratory distress, pt positive for covid.
[2023-10-06 06:10] VITALS: BP 128/80; PULSE 95; RESP 16; TEMP 36.8; O2SAT 97
--- NOTE | 2023-10-06 06:18 | PC.NURSE ---
Provider into discuss plan of care , pt notified she is positive for covid.
[2023-10-06] MEDS: ondansetron HCL 4 MG/2 ML VIAL IVPUSH (06:27)
--- NOTE | 2023-10-06 06:52 | PC.NURSE ---
Reviewed discharge instruction with pt. pt verbalized understanding. no sign of distress
[2023-10-06 06:53] VITALS: BP 128/80; PULSE 95; RESP 16; TEMP 36.8; O2SAT 97
== END 2023-10-06 06:54 | disposition still patient (30) ==
PROVIDERS: Emergency Provider Emergency Medicine
DX: U07.1 COVID-19 (principal); R11.15 Cyclical vomiting syndrome unrelated to migraine; F41.9 Anxiety disorder, unspecified; F12.90 Cannabis use, unspecified, uncomplicated; Z79.899 Other long term (current) drug therapy
CPT/HCPCS: 0241U; 36415; 80048; 80076; 83690; 83735; 84702; 85025; 96361; 96374; 96375; 96376; 99284; 99285; J1790; J2060; J2405

== ENCOUNTER 2023-10-07 03:58 | Emergency (ER) | payer OTHER, SELFPAY ==
[2023-10-07 04:13] VITALS: BP 136/86; PULSE 85; RESP 18; TEMP 36.8; O2SAT 97; BMI 27.4
--- NOTE | 2023-10-07 05:06 | ED_ITS ---
HPI - Abdominal Pain General Chief Complaint: Abdominal Pain Stated Complaint: COVID+ Vomiting Time Seen by Provider: 10/07/23 04:58 Source: patient Mode of arrival: ambulatory Limitations: no limitations History of Present Illness ED Provider: Dr. Choudhury HPI narrative: Patient has covid and is vomiting. States the her zofran is not working and she cannot take reglan. patient is very dramatic MD elicited complaint: abdominal pain Onset (ago): hour(s) Pain Consistency: constant Related Data Home Medications ?Medication ?Instructions ?Recorded ?Confirmed hydroxyzine HCl 25 mg tablet 25 mg PO TID PRN anxiety 12/03/22 06/25/23 Previous Rx's ?Medication ?Instructions ?Recorded metoprolol succinate 50 mg 50 mg PO DAILY #90 tabs 02/16/23 tablet,extended release 24 hr cefuroxime axetil 250 mg tablet 250 mg PO Q12H #10 tabs 06/26/23 omeprazole 20 mg capsule,delayed 20 mg PO DAILY #30 caps 06/26/23 release ondansetron HCl 4 mg tablet 4 mg PO Q8-12H PRN nausea and 06/26/23 vomiting #7 tabs potassium chloride 10 mEq 10 meq PO DAILY #5 tabs 06/26/23 tablet,extended release ondansetron 4 mg disintegrating 4 mg PO Q6-8H PRN nausea and 08/06/23 tablet vomiting #20 tabs potassium chloride 20 mEq 20 meq PO DAILY #5 tabs 08/06/23 tablet,extended release ondansetron 4 mg disintegrating 4 mg PO Q8H PRN nausea and 09/08/23 tablet vomiting #9 tabs ondansetron 4 mg disintegrating 4 mg PO Q8H PRN nausea and 10/06/23 tablet vomiting #20 tabs Allergies Allergy/AdvReac Type Severity Reaction Status Date / Time hydromorphone [Dilaudid] Allergy Unknown hives Verified 10/07/23 04:14 metoclopramide [From Reglan] Allergy Unknown Verified 10/07/23 04:14 ibuprofen [From MOTRIN] AdvReac Mild STOMACH Verified 10/07/23 04:14 UPSET Review of Systems Review of Systems Yes all other systems are reviewed and are negative Denies Sensory deficit (Neuro) PMFSH Past Medical History Medical History Shortness of breath Sinus tachycardia Cyclical vomiting Anxiety Ureteric calculus Family History Family History Father Heart disease Other Hypokalemia Social History Social History Household Members: Spouse and Children Housing: House Do you presently have visiting nurse or other home services: No Alcohol intake: current Alcohol intake frequency: holidays/special occasions only Patient Tobacco Use Status: Never used Tobacco Substance Use Type: Marijuana Advance Directives: No Advance Directives Information Provided: Yes Do you have a plan to hurt others: No Plan Physical Exam ED Vital Signs: Vital Signs - 24 hr 10/07/23 04:13 Temperature 98.3 F Pulse Rate 85 Respiratory Rate 18 Blood Pressure 136/86 Pulse Oximetry 97 Oxygen Delivery Method Room Air BMI result Body Mass Index 27.4 Const Other: very anxious obese female Nutritional Appearance: obese Orientation/consciousness: oriented to person and patient oriented x3 Limitations: no limitations HENMT Head: Yes normal to inspection Ears: external ears normal General nose exam: Normal external nose present Mouth: Normal oral and palatal mucosa present and oropharynx normal Throat: Yes posterior oropharynx normal Eyes General: appearance normal, both eyes and all related structures Neck Neck: Yes normal visual inspection Chest Chest palpation & inspection: normal inspection of the chest Resp Auscultation: clear to auscultation bilaterally Cardio Jugular venous distension: no JVD Rate: regular rate Rhythm: regular rhythm Heart sounds: S1 normal heart sound present and S2 normal heart sound present GI Inspection: Yes normal to inspection Palpation (GI): Soft to palpation, nontender and No hepatosplenomegaly present Auscultation: normal bowel sounds General: Yes no CVA tenderness Back/Spine/Pelvis Back: no CVA tenderness Skin General skin exam: no rashes or lesions noted Neuro General: oriented to person and patient oriented x3 Cranial nerves: Yes CN's II-XII intact bilaterally Motor exam (neuro): 5/5 motor strength present throughout Sensory Exam: No Sensory deficit (Neuro) Extrem General: Yes normal to inspection Psych Appearance: grossly normal Course Reevaluation(s) Reevaluation #1: patient given haldol and benadryl for her vomiting and then wanted to leave Time: 05:57 Medical Decision Making Differential Diagnosis Differential Diagnoses: The differential diagnosis associated with the presentation includes (covid, vomiting, nausea, anxiety) Admission/Observation Consideration of admission/observation: Escalation of care including admission/observation considered (upon arrival patient was considered for admission) Tests considered The following testing was considered but not selected: CT of abdomen considered but exam was nonfocal Prescription Management I considered prescription management with: Antibiotic (no evidence of bacterial infection) Social Determinants Patient?s care significantly limited by Social Determinants of Health including: Low income and Alcoholism and drug addiction in family Medications Administered Discontinued Medications Generic Name Dose Route Start Last Admin Trade Name Freq PRN Reason Stop Dose Admin Diphenhydramine HCl 25 mg 10/07/23 05:06 10/07/23 05:35 Diphenhydramine Hcl 25 Mg Capsule PO 10/07/23 05:07 25 mg ONCE ONE Administration Haloperidol Lactate 5 mg 10/07/23 05:06 10/07/23 05:35 Haloperidol Lactate 5 Mg/Ml Vial IM 10/07/23 05:07 5 mg ONCE ONE Administration Discharge Plan Discharge Clinical Impression: COVID, Nausea & vomiting Patient Disposition: Home, Self-Care Instructions: Acute Nausea and Vomiting (ED), COVID-19 (Coronavirus Disease 2019) (ED) Prescriptions: No Action metoprolol succinate 50 mg tablet extended release 24 hr 50 mg PO DAILY Qty: 90 1RF ondansetron 4 mg tablet,disintegrating 4 mg PO Q6-8H PRN (Reason: nausea and vomiting) Qty: 20 0RF potassium chloride 20 mEq tablet extended release 20 meq PO DAILY Qty: 5 0RF ondansetron 4 mg tablet,disintegrating 4 mg PO Q8H PRN (Reason: nausea and vomiting) Qty: 9 0RF cefuroxime axetil 250 mg Tablet 250 mg PO Q12H Qty: 10 0RF ondansetron HCl 4 mg tablet 4 mg PO Q8-12H PRN (Reason: nausea and vomiting) Qty: 7 0RF potassium chloride 10 mEq tablet extended release 10 meq PO DAILY Qty: 5 0RF omeprazole 20 mg capsule,delayed release(DR/EC) 20 mg PO DAILY Qty: 30 0RF ondansetron 4 mg tablet,disintegrating 4 mg PO Q8H PRN (Reason: nausea and vomiting) Qty: 20 0RF hydroxyzine HCl 25 mg tablet 25 mg PO TID PRN (Reason: anxiety) Referrals: Physician,Unknown J [Primary Care Provider] - 3 days Print Language: Frisian
[2023-10-07] MEDS: Haloperidol Lactate 5 MG/ML VIAL IM (05:35)
[2023-10-07] MEDS: diphenhydrAMINE HCL 25 MG CAPSULE PO (05:35)
[2023-10-07 06:16] VITALS: BP 136/86; PULSE 85; RESP 18; TEMP 36.8; O2SAT 97
== END 2023-10-07 06:00 | disposition home or self-care (01) ==
PROVIDERS: Emergency Provider Emergency Medicine
DX: U07.1 COVID-19 (principal); R11.2 Nausea with vomiting, unspecified
CPT/HCPCS: 96372; 99282; 99284; J1630

== ENCOUNTER 2023-10-08 06:23 | Observation (INO) | payer OTHER, SELFPAY ==
[2023-10-08 06:26] VITALS: BP 129/82; PULSE 83; RESP 16; TEMP 36.7; O2SAT 100; BMI 29.0
[2023-10-08 06:41] VITALS: BP 121/68; PULSE 79; RESP 22; TEMP 36.8; O2SAT 99
--- NOTE | 2023-10-08 06:41 | ED.NAVMDI ---
HPI - Nausea/Vomiting/Diarrhea General Chief complaint: Nausea/Vomiting/Diarrhea Stated complaint: here yesterday Time Seen by Provider: 10/08/23 06:32 Source: patient Mode of arrival: ambulatory Limitations: no limitations History of Present Illness HPI Narrative: Patient is a 38-year-old female who presents emergency department for evaluation of nausea vomiting diffuse abdominal pain. She endorses having associated chills and body aches. She tested positive for COVID -19 4 days ago. She states she was seen in the emergency department yesterday, she was given medication but did not feel as though her symptoms fully improved. She has been taking Zofran multiple times at home without any improvement. She states that she last took this prior to arrival to the hospital. She has a history of cyclical vomiting. She denies possibility of , does not recall the date of her last menstrual. However, she additionally has a history of recurrent UTIs but denies any genitourinary symptoms, denies constipation diarrhea hematochezia or melena. Related Data Home Medications ?Medication ?Instructions ?Recorded ?Confirmed hydroxyzine HCl 25 mg tablet 25 mg PO TID PRN anxiety 12/03/22 10/08/23 Previous Rx's ?Medication ?Instructions ?Recorded metoprolol succinate 50 mg 50 mg PO DAILY #90 tabs 02/16/23 tablet,extended release 24 hr Allergies Allergy/AdvReac Type Severity Reaction Status Date / Time hydromorphone [Dilaudid] Allergy Unknown hives Verified 10/08/23 06:38 metoclopramide [From Reglan] Allergy Unknown Verified 10/08/23 06:38 ibuprofen [From MOTRIN] AdvReac Mild STOMACH Verified 10/08/23 06:38 UPSET Review of Systems Review of Systems: Yes all other systems are reviewed and are negative PMFSH Past Medical History Attestation statement: The following information was validated with the patient. Source: old records reviewed Medical History Shortness of breath Sinus tachycardia Cyclical vomiting Anxiety Ureteric calculus Family History Family History Father Heart disease Other Hypokalemia Social History Social History Household Members: Spouse and Children Housing: House Do you presently have visiting nurse or other home services: No Alcohol intake: current Alcohol intake frequency: holidays/special occasions only Patient Tobacco Use Status: Never used Tobacco Smoked in Last 30 Days: Yes Substance Use Type: Marijuana Advance Directives: No Advance Directives Information Provided: No Do you have a plan to hurt others: No Plan Patient : No Physical Exam Vital Signs: Vital Signs: Last Vital Signs Temp 97.6 F 10/09/23 01:20 Pulse 76 10/09/23 01:20 Resp 20 10/09/23 01:20 BP 110/75 10/09/23 01:20 Pulse Ox 98 10/09/23 01:20 O2 Del Method Room Air 10/09/23 01:20 BMI result Body Mass Index 29.0 Appearance: Alert.?Oriented to person, place and time. Very anxious, very tearful Eyes: Pupils equal, round and reactive to light.? No subconjunctival pallor ENT: Pharynx normal.?? Neck: Normal inspection.? Neck supple.?? CVS: Heart sounds normal. Normal heart rate and rhythm.? Pulses normal.?? Respiratory: No respiratory distress.? Lung sounds clear to auscultation bilaterally?? Abdomen: Soft and non-tender. Normoactive bowel sounds. No pulsatile mass.?? Skin: Skin warm and dry.? Normal skin color.? Normal skin turgor.?? Extremities: No lower extremity edema.? Neuro: Moves all extremities spontaneously. Sensation intact bilaterally. Ambulates with normal steady gait. Course Reevaluation(s) Reevaluation #1: Patient resting asleep on the stretcher after receiving droperidol and Benadryl. No further episodes of emesis. Oral potassium replacement has been ordered, patient declining to take as she feels this will only cause her to vomit will place orders for testing chloride 10 mEq IV and an additional 1 L normal saline. Anticipating discharge home as she has had no further episodes of vomiting, will send with oral replacement as well. Currently, awaiting urinalysis/hCG at this time. Pending p.o. trial. Reevaluation #2: Nursing staff placed potassium chloride via IV piggyback normal saline. Patient refusing IV administration due to pain from infusion. No evidence of infiltration. Patient is now amenable to trialing oral potassium replacement. Urinalysis being sent. Continues to have no further episodes of vomiting. Time: 09:38 Reevaluation #3: Patient found to be sitting on the floor of her room yelling out and screaming. Reporting that pain has return diffusely throughout her abdomen with minimal water intake for potassium supplement. She had an episode of vomiting. She reports that she has return of her nausea that is severe after taking potassium. We will trial additional management at this time with Compazine and lorazepam. Time: 10:53 Additional Reevaluation(s): Admission to medicine service, intractable nausea and vomiting with hypokalemia secondary to gastrointestinal loss Medications Administered Discontinued Medications Generic Name Dose Route Start Last Admin Trade Name Freq PRN Reason Stop Dose Admin Diphenhydramine HCl 25 mg 10/08/23 06:40 10/08/23 06:57 Diphenhydramine Hcl 50 Mg/Ml Vial IVPUSH 10/08/23 06:41 25 mg ONCE ONE Administration Droperidol 1.25 mg 10/08/23 06:40 10/08/23 06:57 Droperidol 5 Mg/2 Ml Vial IVPUSH 10/08/23 06:41 1.25 mg ONCE ONE Administration Enoxaparin Sodium 40 mg 10/08/23 15:15 10/08/23 16:11 Enoxaparin Sodium 40 Mg/0.4 Ml Syringe SUBCUT Not Given Q24H KANDY Famotidine 20 mg 10/08/23 21:00 10/08/23 20:26 Famotidine 20 Mg Tablet PO 20 mg BID KANDY Administration Hydroxyzine HCl 25 mg 10/08/23 15:46 10/08/23 20:26 Hydroxyzine Hcl 25 Mg Tablet PO 25 mg TID PRN Administration anxiety Sodium Chloride 1,000 mls @ 999 mls/hr 10/08/23 06:45 10/08/23 08:04 Ns IV 10/08/23 07:45 Infused .Q1H1M KANDY Infusion Sodium Chloride 1,000 mls @ 999 mls/hr 10/08/23 08:45 10/08/23 10:56 Ns IV 10/08/23 09:45 Infused .Q1H1M KANDY Infusion Potassium Chloride 10 meq in 100 mls @ 100 mls/hr 10/08/23 08:41 10/08/23 09:40 Potassium Chloride/H20 IV 10/08/23 09:40 Not Given ONCE ONE Ceftriaxone Sodium 1 gm/ 50 mls @ 100 mls/hr 10/08/23 16:00 10/08/23 16:56 Sodium Chloride IV Infused Q24H KANDY Infusion Ketorolac Tromethamine 15 mg 10/08/23 15:37 10/08/23 20:26 Ketorolac Tromethamine 15 Mg/Ml Vial IVPUSH 15 mg Q6H PRN Administration Pain, Moderate(Pain Scale 4-6) Lorazepam 1 mg 10/08/23 10:48 10/08/23 11:10 Lorazepam 2 Mg/Ml Vial IVPUSH 10/08/23 10:49 1 mg ONCE ONE Administration Metoprolol Succinate 50 mg 10/08/23 15:50 10/08/23 16:07 Metoprolol Succinate Er 50 Mg Tab.Er.24h PO 50 mg DAILY KANDY Administration Protocol Potassium Chloride 40 meq 10/08/23 07:40 10/08/23 08:37 Potassium Chloride Er 20 Meq Tab.Er.Prt PO 10/08/23 07:41 Not Given ONCE ONE Potassium Chloride 40 meq 10/08/23 09:37 10/08/23 10:18 Potassium Chloride Er 20 Meq Tab.Er.Prt PO 10/08/23 09:38 40 meq ONCE ONE Administration Prochlorperazine Edisylate 10 mg 10/08/23 10:48 10/08/23 11:09 Prochlorperazine Edisylate 10 Mg/2 Ml Vial IVPUSH 10/08/23 10:49 10 mg ONCE ONE Administration Prochlorperazine Edisylate 10 mg 10/08/23 16:49 10/08/23 20:26 Prochlorperazine Edisylate 10 Mg/2 Ml Vial IVPUSH 10 mg Q4H PRN Administration Nausea Sodium Chloride 3 ml 10/08/23 16:00 10/08/23 20:30 0.9 % Sodium Chloride Flush 3 Ml Syringe IVFLUSH 3 ml QSHIFT KANDY Administration Medical Decision Making Medical Decision Making [facility] Narrative: Patient is a 38-year-old female with past medical history of cyclical vomiting, ureteric calculi, anxiety, recurrent UTIs who presents emergency department for evaluation of nausea vomiting and generalized abdominal pain in the setting of recent COVID -19 infection. She is very anxious at the time of my evaluation, yellowing out asking for help, requesting the cocktail , for her nausea and light that the Zofran ODT has not helped her symptoms. Will obtain CBC to evaluate for leukocytosis/ anemia, CMP and lipase to evaluate for abnormal electrolytes /abnormal renal function/ abnormal hepatic/biliary function, and Urinalysis. Patient will receive 1 L normal saline IV, Benadryl 25 mg IV, droperidol 1.25 mg IV. I suspect that her COVID-19 infection is likely causing exacerbation of her cyclical vomiting, or abdominal examination is nonfocal, I have a low suspicion for acute cholecystitis, pancreatitis, diverticulitis, appendicitis, obstructive calculi Differential Diagnosis Differential Diagnoses: The differential diagnosis associated with the presentation includes (See narrative above) Admission/Observation Consideration of admission/observation: Escalation of care including admission/observation considered (See narrative above) Lab Data MDM Lab Attestation statement: I reviewed the patient's lab results. CBC revealing mild leukocytosis of 11.6, no anemia, no thrombocytopenia. Mild hypokalemia of 3.0 replaced orally with 40 mEq. LFTs and lipase without compelling evidence of acute hepatobiliary etiology. 10/08/23 06:56 10/08/23 06:56 Labs: Lab Results 10/08/23 10/08/23 10/08/23 Range/Units 06:56 09:30 09:31 WBC 11.6 H (4.8-10.8) X10*3/uL RBC 5.78 H (4.20-5.50) X10*6/uL Hgb 14.9 (12.0-16.0) g/dl Hct 44.4 (37.0-47.0) % MCV 76.8 L (80.0-98.0) fL MCH 25.8 L (27.0-33.0) pg MCHC 33.6 (31.0-35.0) g/dl RDW 14.7 (11.0-16.0) % Plt Count 294 (160-400) X10*3/uL MPV 10.7 (9.4-12.3) fL Immature Gran % (Auto) 0.3 (0.0-0.4) % Neut % (Auto) 75.3 H (45-73) % Lymph % (Auto) 14.9 L (20-40) % Dickens % (Auto) 9.2 (2-11) % Eos % (Auto) 0.0 (0-4) % Baso % (Auto) 0.3 (0-2) % Lymph # (Auto) 1.7 (1.2-4.9) X10*3/uL [place] # (Auto) 1.1 (0.1-1.2) X10*3/uL Eos # (Auto) 0.0 (0.0-0.4) X10*3/uL Baso # (Auto) 0.0 (0.0-0.2) X10*3/uL Abs Immat Gran (auto) 0.04 H (0.00-0.03) X10*3/uL Absolute Neuts (auto) 8.7 H (2.0-8.3) x10*3/uL Absolute Nucleated RBC 0.000 (0.0-0.012) X10*3/uL Nucleated RBC % (auto) 0.0 (0.0-0.2) /100WBC Sodium 137 (135-145) mmol/L Potassium 3.0 L D (3.3-5.1) mmol/L Chloride 94 L (96-108) mmol/L Carbon Dioxide 26 (22-29) mmol/L Anion Gap 20 (12-20) BUN 15 (9-16) mg/dL Creatinine 0.95 (0.5-1.4) mg/dL Estim Creat Clear Calc 88.1 Estimated GFR > 60 Random Glucose 126 H (60-115) mg/dL Calcium 10.4 H D (8.4-10.2) mg/dL Magnesium 2.1 (1.6-2.6) mg/dL Total Bilirubin 1.1 H (0.0-1.0) mg/dL AST 16 (5-31) U/L ALT 15 (0-31) U/L Alkaline Phosphatase 70 (39-117) U/L Total Protein 8.3 H (6.5-8.0) g/dL Albumin 4.9 (3.5-5.0) g/dL Lipase 8 (8-78) U/L Urine Color Yellow Urine Appearance Clear Urine pH 8.5 (5.0-9.0) Ur Specific [place] 1.020 (1.005-1.025) Urine Protein 30 (1+) H (Neg-Trace) mg/dL Urine Glucose (UA) Negative (Negative) mg/dL Urine Ketones 80 (Negative) mg/dL Urine Blood Large (3+) H (Negative) Urine Nitrite Negative (Negative) Ur Leukocyte Esterase Small (1+) H (Negative) Urine RBC >20 H (0-2) /HPF Urine WBC 0-5 (0-5) /HPF Ur Squamous Epith Cells 0-2 (0-2) /HPF Urine Bacteria None Seen (None Seen) Hyaline Casts 0-2 (0-2) /LPF Urine Test NEGATIVE (NEGATIVE) Urine Opiates Screen Not Detected (Not Detect) Ur Buprenorphine Scrn Not Detected (Not Detect) ng/mL Ur Oxycodone Screen Not Detected (Not Detect) ng/mL Urine Methadone Screen Not Detected (Not Detect) ng/mL Urine Fentanyl Screen Not Detected (Not Detect) Ur Barbiturates Screen Not Detected (Not Detect) Ur Phencyclidine Scrn Not Detected (Not Detect) Ur Amphetamines Screen Not Detected (Not Detect) U Benzodiazepines Scrn Not Detected (Not Detect) Urine Cocaine Screen Not Detected (Not Detect) U Marijuana (THC) Screen POSITIVE H (Not Detect) External Record Review External record reviewed: Outpatient record Prescription Management I considered prescription management with: Pain Medication and Other (Antiemetic) Discharge Plan Discharge Clinical Impression: Cyclic vomiting syndrome, Hypokalemia due to excessive gastrointestinal loss of potassium, COVID Patient Disposition: Admitted As Inpatient Interventions: Admission Worksheet (ED) Last Done: 10/08/23 23:51 Discharge Date/Time: 10/09/23 01:05
[2023-10-08] MEDS: droPERidol 5 MG/2 ML VIAL 1.25 MG IVPUSH (06:57)
[2023-10-08] MEDS: diphenhydrAMINE HCL 50 MG/ML VIAL 25 MG IVPUSH (06:57)
[2023-10-08] MEDS: 0.9 % Sodium Chloride 1,000 ML 999 ML IV ×2 (06:57→09:27)
[2023-10-08 07:00] LABS: MANUAL DIFF FLAG NO
[2023-10-08 07:01] LABS: Basophils Percent Auto 0.3 % (0-2); Hematocrit 44.4 % (37.0-47.0); Hemoglobin 14.9 g/dl (12.0-16.0); Imm Gran Abs Auto 0.04 X10*3/uL (0.00-0.03); Imm Gran Pct Auto 0.3 % (0.0-0.4); Lymphocytes Absolute Auto 1.7 X10*3/uL (1.2-4.9); Lymphocytes Percent Auto 14.9 % (20-40); Mean Corpuscular HGB Conc 33.6 g/dl (31.0-35.0); Mean Corpuscular Hemoglobin 25.8 pg (27.0-33.0); Mean Corpuscular Volume 76.8 fL (80.0-98.0); Mean Platelet Volume 10.7 fL (9.4-12.3); Monocytes Absolute Auto 1.1 X10*3/uL (0.1-1.2); Monocytes Percent Auto 9.2 % (2-11); Neutrophils Absolute Auto 8.7 x10*3/uL (2.0-8.3); Neutrophils Percent Auto 75.3 % (45-73); Platelet Count 294 X10*3/uL (160-400); Red Blood Count 5.78 X10*6/uL (4.20-5.50); Red Cell Distribution Width 14.7 % (11.0-16.0); White Blood Count 11.6 X10*3/uL (4.8-10.8)
[2023-10-08 07:22] LABS: Alanine Aminotransferase 15 U/L (0-31); Albumin Level 4.9 g/dL (3.5-5.0); Alkaline Phosphatase 70 U/L (39-117); Anion Gap 20 (12-20); Aspartate Amino Transferase 16 U/L (5-31); Bilirubin Total 1.1 mg/dL (0.0-1.0); Blood Urea Nitrogen 15 mg/dL (9-16); Calcium 10.4 mg/dL (8.4-10.2); Carbon Dioxide 26 mmol/L (22-29); Chloride 94 mmol/L (96-108); Creatinine Clr Calc Pharmacy 88.1; Estimated Glomerular Filt Rate > 60; Glucose Random 126 mg/dL (60-115); Lipase 8 U/L (8-78); Magnesium 2.1 mg/dL (1.6-2.6); Sodium 137 mmol/L (135-145); Total Protein 8.3 g/dL (6.5-8.0)
--- NOTE | 2023-10-08 08:37 | PC.NURSE ---
Pt. refusing PO Potassium and refusing to give urine sample. INSTITUTIONAL NUTRITION CONSULTANT aware
[2023-10-08 08:40] VITALS: BP 117/72; PULSE 76; RESP 14; TEMP 37.1; O2SAT 99
--- NOTE | 2023-10-08 09:38 | PC.NURSE ---
Urine samples collected and sent as ordered. IVF and Potassium IV administered. Pt. screaming at the top of her lungs that the IV Potassium hurts and demanding this RN to take it out. Explained to pt. that the other option is oral Potassium, which she refused earlier. Pt. stating that she is now agreeable to try to tolerate the PO Potassium. IV Potassium turned off and Rhonda Gray, PHARMACY TECHNICIAN TRAINEE made aware. Per PHARMACY TECHNICIAN TRAINEE, please give the PO Potassium order from earlier.
[2023-10-08 09:44] LABS: Appearance Urine Clear; Color Urine Yellow; Glucose Urine UA Negative (Negative); Leukocyte Esterase Urine Small (1+) (Negative); Nitrite Urine Negative (Negative); PH 8.5 (5.0-9.0); UMIC TRIGGER UACC YES; UPreg QC Valid YES; Urine Blood Large (3+) (Negative); Urine Ketones 80 mg/dL (Negative); Urine Pregnancy NEGATIVE (NEGATIVE); Urine Protein 30 (1+) mg/dL (Neg-Trace)
[2023-10-08 09:50] LABS: Bacteria Urine None Seen (None Seen); Hyaline Casts Urine 0-2 /LPF (0-2); RBC Urine >20 /HPF (0-2); Squamous Epithelial Cell Urine 0-2 /HPF (0-2); UACC Culture Trigger YES; WBC Urine 0-5 /HPF (0-5)
[2023-10-08] MEDS: Potassium Chloride ER 20 MEQ TAB.ER.PRT 40 MEQ PO (10:18)
--- NOTE | 2023-10-08 10:54 | PC.NURSE ---
This RN informed by registration that she saw pt. throwing herself on the floor and screaming. This RN, desilverizer and tech into pt.'s room to assess. Pt. was in bed, screaming, crying and flailing arms and legs around that she's in pain and reports that she had just vomited. Explained to pt. that we will inform PROCESS ENGINEERING TECHNICIAN that she's nauseous and having pain and will get her medications, but she cannot throw herself on the floor for safety and infection control reasons. Pt. continues to cry, but verbalizes understanding of this.
[2023-10-08] MEDS: Prochlorperazine Edisylate 10 MG/2 ML VIAL IVPUSH ×2 (11:09→20:26)
[2023-10-08] MEDS: LORazepam 2 MG/ML VIAL 1 MG IVPUSH (11:10)
--- NOTE | 2023-10-08 13:00 | PC.NURSE ---
Pt. refusing to attempt PO challenge. Making gagging noises, shaking her head no and stating that she can't do it. [employer] COMMER[employer] CONSULTANT aware
[2023-10-08 14:02] VITALS: BP 108/57; PULSE 72; RESP 14; O2SAT 96
--- NOTE | 2023-10-08 14:44 | PM.IMHP ---
History of Present Illness Date of Service: 10/08/23 Attending physician on admission: [facility] Chief Complaint: Intractable nausea and vomiting Pt is a 38-year-old female with a PMH significant for?cyclic vomiting syndrome, ureteric calculus, anxiety, and chronic UTIs who presents to the ED?for evaluation of intractable nausea and vomiting x5 days. Has also been experiencing central abdominal pain associated with vomiting. Pain is described as sharp, twisting, and non radiating. Patient has presented multiple times to the ED during this time, including on 10/05 when she tested positive for COVID. And again yesterday when she was treated with Haldol and Benadryl and eventually discharged. Patient states symptoms subsided for short period of time after going home, but nausea and vomiting soon returned. Patient reports has been unable to tolerate anything p.o. during these past 5 days. Patient has had similar symptoms in the past and presented multiple times to the ED for cyclic vomiting syndrome that has been attributed to marijuana use. Patient admits to last using marijuana on Wednesday, 1 day prior to symptom onset. Patient continues to deny association between marijuana and nausea and vomiting. Is not yet ready to consider quitting. Denies fever, chills. No diarrhea. Denies chest pain/pressure, palpitations. No shortness a breath or difficulty breathing. Denies headache. In the ED pt was tachycardic up 22 and with soft BP of 108/57. Labs were significant for mild leukocytosis of 11.6, and potassium 3.0, otherwise grossly unremarkable. UA positive for protein, blood, leukocyte esterase, but no wbc's or bacteria. Pt was treated with IVF, droperidol, Benadryl, Compazine, lorazepam, and potassium chloride. Pt will be admitted to the hospital under observation for treatment and further evaluation of cyclic vomiting syndrome likely secondary to marijuana use. Review of Systems Review of Systems: Intractable nausea and vomiting Central abdominal pain associated with vomiting Denies diarrhea No fever, chills Denies chest pain/pressure, palpitations No shortness a breath or difficulty breathing Denies cough PMFSH Medical History Shortness of breath Sinus tachycardia Cyclical vomiting Anxiety Ureteric calculus Family History Father Heart disease Other Hypokalemia Social History Household Members: Spouse and Children Housing: House Do you presently have visiting nurse or other home services: No Alcohol intake: current Alcohol intake frequency: holidays/special occasions only Patient Tobacco Use Status: Never used Tobacco Smoked in Last 30 Days: Yes Substance Use Type: Marijuana Advance Directives: No Advance Directives Information Provided: No Do you have a plan to hurt others: No Plan Patient : No Meds Allergies Allergy/AdvReac Type Severity Reaction Status Date / Time hydromorphone [Dilaudid] Allergy Unknown hives Verified 10/08/23 06:38 metoclopramide [From Reglan] Allergy Unknown Verified 10/08/23 06:38 ibuprofen [From MOTRIN] AdvReac Mild STOMACH Verified 10/08/23 06:38 UPSET Home Medications ?Medication ?Instructions ?Recorded ?Confirmed ?Last Taken ?Type hydroxyzine HCl 25 mg tablet 25 mg PO TID PRN anxiety 12/03/22 10/08/23 10/04/23 History Physical Exam Vital Signs and Narrative: Vital Signs: Last Vital Signs Temp 98.7 F 10/08/23 08:40 Pulse 72 10/08/23 14:02 Resp 14 10/08/23 14:02 BP 108/57 L 10/08/23 14:02 Pulse Ox 96 10/08/23 14:02 O2 Del Method Room Air 10/08/23 14:02 BMI result Body Mass Index 29.0 General: AOx3, restless, looks uncomfortable. In no acute distress Resp: CTA bilaterally CVS: S1, S2, RRR GI: +BS, no distention, nontender to palpation Skin: Warm, dry Neuro: Cranial nerves II-XII grossly intact bilaterally. Motor grossly intact bilaterally Extremities: No edema Psych: Appropriate affect Results Labs 10/08/23 06:56 10/08/23 06:56 Labs: Laboratory Results - last 24 hr 10/08/23 10/08/23 06:56 09:31 MCV 76.8 L MCH 25.8 L MCHC 33.6 RDW 14.7 Plt Count 294 MPV 10.7 Immature Gran % (Auto) 0.3 Neut % (Auto) 75.3 H Lymph % (Auto) 14.9 L [place] % (Auto) 9.2 Eos % (Auto) 0.0 Baso % (Auto) 0.3 Lymph # (Auto) 1.7 [place] # (Auto) 1.1 Eos # (Auto) 0.0 Baso # (Auto) 0.0 Abs Immat Gran (auto) 0.04 H Absolute Neuts (auto) 8.7 H Absolute Nucleated RBC 0.000 Nucleated RBC % (auto) 0.0 Anion Gap 20 Estim Creat Clear Calc 88.1 Estimated GFR > 60 Random Glucose 126 H Calcium 10.4 H D Magnesium 2.1 Total Bilirubin 1.1 H AST 16 ALT 15 Alkaline Phosphatase 70 Total Protein 8.3 H Albumin 4.9 Lipase 8 Urine Color Yellow Urine Appearance Clear Urine pH 8.5 Ur Specific [place] 1.020 Urine Protein 30 (1+) H Urine Glucose (UA) Negative Urine Ketones 80 Urine Blood Large (3+) H Urine Nitrite Negative Ur Leukocyte Esterase Small (1+) H Urine RBC >20 H Urine WBC 0-5 Ur Squamous Epith Cells 0-2 Urine Bacteria None Seen Hyaline Casts 0-2 Urine Test NEGATIVE Assessment and Plan (1) Cyclical vomiting: Status: Acute Plan Pt is a 38-year-old female with a PMH significant for?cyclic vomiting syndrome, ureteric calculus, anxiety, and chronic UTIs who presents to the ED?for evaluation of intractable nausea and vomiting x5 days. Pt will be admitted to the hospital under observation for treatment and further evaluation of cyclic vomiting syndrome likely secondary to marijuana use. Cyclic vomiting syndrome Likely secondary to marijuana use, pt last used on Wednesday the day prior to symptom onset Intractable nausea and vomiting with associated epigastric pain x5 days Received droperidol, Compazine, Benadryl, lorazepam, and IVF in ED Ondansetron p.r.n., consider promethazine if symptoms persist Tramadol for pain management Pepcid 20 b.i.d. Clear liquid diet for now, advance as tolerated Question of UTI UA with +leuk esterase, 0-5 WBC, no bacteria, -nitritie Pt complains of dysuria Will empirically treat with ceftriaxone for now No sepsis: HR of 93 secondary to abdominal pain and nausea/vomiting, no fever or leukocytosis Follow urine cultures Hypokalemia Potassium 3.0 time of presentation Likely secondary to nausea and vomiting Patient received potassium chloride supplementation in the ED Follow BMP COVID Tested positve for COIVD on 10/06/2023 Complaining of body aches and headache No SOB or cough, not hypoxic Symptomatic treatment with analgesics HTN Continue metoprolol Anxiety Continue hydroxyine Full Code Attending:?Dr. Doshi DVT Prophylaxis: Lovenox Pt will be admitted to the hospital under observation for treatment and further evaluation of cyclic vomiting syndrome likely secondary to marijuana use. As patient is incapable of tolerating p.o. at this time, she will require hospitalization for treatment with IV antiemetics and analgesics. Quality Stroke Does the patient have a stroke diagnosis?: No VTE Prior VTE?: No VTE Risk Level:: Medical - moderate - high VTE Device Contraindication: Treatment Not Indicated VTE Drug Contraindication: N/A - Med Ordered
[2023-10-08 15:03] VITALS: BP 146/71; PULSE 93; RESP 16; TEMP 36.8; O2SAT 97
--- NOTE | 2023-10-08 15:31 | PHA.MEDREC ---
Addendum entered by Xiomara Mcarthur [facility] 10/08/23 15:48: reviewed by [facility] Addendum entered by Freedom Guerrero 10/08/23 15:44: Called and spoke to [facility] pharmacy to confirm when she last picked up the Hydroxyzine and Metoprolol. In their system they have her name as Felecia Singh and not Ellis, I verified address and phone number and it matched what we have in our system. They state the patient has not picked up Metoprolol since February for 90 days and they have no history for Hydroxyzine in their system. Original Note: Pharmacy Consult ? Medication Reconciliation Pharmacy has completed the medication reconciliation. Confirmed medications with patient with no problem. Patient states she is only taking Hydroxyzine 25mg tabs one TID as needed for Anxiety and Metoprolol 50mg tabs once daily and nothing else. She also states she has not been able to take either of those medications in 5 days due to her throwing up this past week.
[2023-10-08] MEDS: Metoprolol Succinate ER 50 MG TAB.ER.24H PO (16:07)
[2023-10-08] MEDS: cefTRIAXone sodium 1 GM in 0.9 % Sodium Chloride 50 ML IV (16:07)
--- NOTE | 2023-10-08 16:10 | PC.NURSE ---
Pt. medicated per APR. Refused Lovenox shot.
[2023-10-08 18:45] VITALS: BP 133/67; PULSE 62; RESP 15; TEMP 36.7; O2SAT 97
[2023-10-08] MEDS: Ketorolac Tromethamine 15 MG/ML VIAL IVPUSH (20:26)
[2023-10-08] MEDS: Famotidine 20 MG TABLET PO (20:26)
[2023-10-08] MEDS: hydrOXYzine HCL 25 MG TABLET PO (20:26)
[2023-10-08] MEDS: 0.9 % Sodium Chloride Flush 3 ML SYRINGE IVFLUSH (20:30)
[2023-10-08 23:47] LABS: Amphetamine Screen Urine Not Detected (Not Detect); Barbiturates, Urine Not Detected (Not Detect); Benzodiazepines Screen Urine Not Detected (Not Detect); Buprenorphine Scr Not Detected (Not Detect); Cannabinoid Screen Urine POSITIVE (Not Detect); Cocaine Screen Urine Not Detected (Not Detect); Fentanyl, urine Not Detected (Not Detect); Methadone Screen, Urine Not Detected (Not Detect); Opiate Screen Urine Not Detected (Not Detect); Oxycodone Screen Urine Not Detected (Not Detect); Phencyclidine Screen Urine Not Detected (Not Detect)
[2023-10-09 01:20] VITALS: BP 110/75; PULSE 76; RESP 20; TEMP 36.4; O2SAT 98
--- NOTE | 2023-10-09 01:46 | PC.NURSE ---
Received from ED overflow to room 470. Requesting medication for anxiety and food to eat On arrival. Informed pt she is on clear liquid diet, but i will inform Dr Weiner. Texted Dr Weiner and informed him of patient requesting. He place order for Ativan for patient . Patient decide to leave AMA and sign form.Dr Weiner make aware.
--- NOTE | 2023-10-09 01:47 | PM.EVENT ---
Event Note Date of Service: 10/09/23 Event Note: I was told by the nurse that patient eloped. IV was removed before she left against medical advice. Patient left before I could talk to her. Time Spent With Patient Time: Total time managing care of this patient today ____ minutes.
--- NOTE | 2023-10-09 07:06 | P.DS_ITS ---
DS: Providers Provider Date of Service: 10/09/23 Date of admission: 10/08/23 15:02 Primary care physician: Unknown Physician DS: Diagnosis Discharge Diagnosis (1) Cyclical vomiting: Status: Acute DS: Summary Hospital Course Hospital Course: see H&P for detail. Patient was admitted for management of cyclical vomiting syndrome and left against medical advice in the middle of the night final diagnosis: Cyclical vomiting syndrome Time Attestation Discharge Coordination Time (in mins): 10 Quality: Safe Use of Opioids Does Pt have an Active Cancer Diagnosis on the Problem List?: No Quality: Stroke Does the patient have a stroke diagnosis?: No Physical Exam Vital Signs: Vital Signs: Last Vital Signs Temp 97.6 F 10/09/23 01:20 Pulse 76 10/09/23 01:20 Resp 20 10/09/23 01:20 BP 110/75 10/09/23 01:20 Pulse Ox 98 10/09/23 01:20 O2 Del Method Room Air 10/09/23 01:20 BMI result Body Mass Index 29.0 DS: Data Data Completed and Pending Labs on day of discharge: Laboratory Results - last 24 hr 10/08/23 10/08/23 10/08/23 06:56 09:30 09:31 Sodium 137 Potassium 3.0 L D Chloride 94 L Carbon Dioxide 26 Anion Gap 20 BUN 15 Creatinine 0.95 Estim Creat Clear Calc 88.1 Estimated GFR > 60 Random Glucose 126 H Calcium 10.4 H D Magnesium 2.1 Total Bilirubin 1.1 H AST 16 ALT 15 Alkaline Phosphatase 70 Total Protein 8.3 H Albumin 4.9 Lipase 8 Urine Color Yellow Urine Appearance Clear Urine pH 8.5 Ur Specific [place] 1.020 Urine Protein 30 (1+) H Urine Glucose (UA) Negative Urine Ketones 80 Urine Blood Large (3+) H Urine Nitrite Negative Ur Leukocyte Esterase Small (1+) H Urine RBC >20 H Urine WBC 0-5 Ur Squamous Epith Cells 0-2 Urine Bacteria None Seen Hyaline Casts 0-2 Urine Test NEGATIVE Urine Opiates Screen Not Detected Ur Buprenorphine Scrn Not Detected Ur Oxycodone Screen Not Detected Urine Methadone Screen Not Detected Urine Fentanyl Screen Not Detected Ur Barbiturates Screen Not Detected Ur Phencyclidine Scrn Not Detected Ur Amphetamines Screen Not Detected U Benzodiazepines Scrn Not Detected Urine Cocaine Screen Not Detected U Marijuana (THC) Screen POSITIVE H Discharge Plan Discharge Anticipated Discharge Date/Time: 10/09/23 07:07 Patient Disposition: Left Against Medical Advice Discharge Diagnosis: cyclical vomiting syndrome Referrals: Physician,Unknown J [Primary Care Provider] - 1 Week Discharge Medications: No Action metoprolol succinate 50 mg tablet extended release 24 hr 50 mg PO DAILY Qty: 90 1RF hydroxyzine HCl 25 mg tablet 25 mg PO TID PRN (Reason: anxiety) Discharge Orders: Discharge Order (Routine); Ordered 10/09/23 Ordered By: Donato Doshi Diet: Advance to usual diet Activity on Discharge: As tolerated Print Language: Romansh Care Plan Goals: left AMA Health Concerns: Left AMA Plan of Treatment: Left AMA Assessment: Left AMA Discharge Date/Time: 10/09/23 01:30
== END 2023-10-09 01:30 | disposition left against medical advice (07) ==
LOC: HO.ED 07:46 → HO.EDOVER 15:12 → HO.IMC 23:40
PROVIDERS: Nurse Practitioner Family; Admitting Provider Student in an Organized Health Care Education/Training Program; Emergency Provider Emergency Medicine; Visit Provider Internal Medicine
DX: R11.15 Cyclical vomiting syndrome unrelated to migraine (principal); E87.6 Hypokalemia; U07.1 COVID-19; F41.9 Anxiety disorder, unspecified; R10.9 Unspecified abdominal pain; Z79.899 Other long term (current) drug therapy; Z53.29 Procedure and treatment not carried out because of patient's decision for other reasons
CPT/HCPCS: 36415; 80053; 80307; 81001; 81025; 83690; 83735; 85025; 87086; 92950; 96361; 96365; 96375; 99222; 99285; J0696; J0737; J1200; J1790; J1885; J2060; J3480

== ENCOUNTER → 2023-10-08 15:02 | Outpatient (BNV) | payer OTHER, SELFPAY | PROVIDERS: Admitting Provider Student in an Organized Health Care Education/Training Program; Emergency Provider Emergency Medicine; Visit Provider Student in an Organized Health Care Education/Training Program | DX: R11.15 Cyclical vomiting syndrome unrelated to migraine (principal) | CPT/HCPCS: 99222; 99238 ==

== ENCOUNTER 2023-11-02 06:53 | Observation (INO) | payer OTHER, SELFPAY ==
[2023-11-02 07:14] VITALS: BP 146/108; PULSE 90; RESP 16; TEMP 36.5; O2SAT 99; BMI 28.2
[2023-11-02 07:25] VITALS: BP 148/106; PULSE 92; RESP 22; TEMP 36.6; O2SAT 96
--- NOTE | 2023-11-02 07:28 | ED.GENADULT ---
HPI - General Adult General Chief complaint: Nausea/Vomiting/Diarrhea Stated complaint: n/v Time Seen by Provider: 11/02/23 07:28 History of Present Illness ED Provider: Daquan KUMAR narrative: The patient is a 38-year-old female who comes to the emergency room frequently for uncontrollable vomiting that seems to be cannabis hyperemesis syndrome. She often has elevated white counts and hypokalemia. Comes to the emergency room because of recurrence of nausea, vomiting, and upper abdominal pain similar to previous presentations. She says she has tried ondansetron without success. She does not feel there is any chance she could be . Related Data Home Medications ?Medication ?Instructions ?Recorded ?Confirmed hydroxyzine HCl 25 mg tablet 25 mg PO TID PRN anxiety 12/03/22 10/08/23 Previous Rx's ?Medication ?Instructions ?Recorded metoprolol succinate 50 mg 50 mg PO DAILY #90 tabs 02/16/23 tablet,extended release 24 hr Allergies Allergy/AdvReac Type Severity Reaction Status Date / Time hydromorphone [Dilaudid] Allergy Unknown hives Verified 11/02/23 07:15 metoclopramide [From Reglan] Allergy Unknown Verified 11/02/23 07:15 ibuprofen [From MOTRIN] AdvReac Mild STOMACH Verified 11/02/23 07:15 UPSET Review of Systems Review of Systems: Yes all other systems are reviewed and are negative [facility] Past Medical History Medical History Shortness of breath Sinus tachycardia Cyclical vomiting Anxiety Ureteric calculus Family History Family History Father Heart disease Other Hypokalemia Social History Social History Household Members: Spouse and Children Housing: House Do you presently have visiting nurse or other home services: No Alcohol intake: current Alcohol intake frequency: holidays/special occasions only Patient Tobacco Use Status: Never used Tobacco Smoked in Last 30 Days: No Use of substances other than those prescribed or required for medical reasons: Yes Substance Use Type: Marijuana Advance Directives: No Patient : No Physical Exam ED Vital Signs: Vital Signs - 24 hr 11/02/23 07:14 11/02/23 07:25 11/02/23 11:31 Temperature 97.7 F 97.9 F 98.6 F Pulse Rate 90 92 74 Respiratory Rate 16 22 H 18 Blood Pressure 146/108 H 148/106 H 140/98 H Pulse Oximetry 99 96 98 Oxygen Delivery Method Room Air Room Air BMI result Body Mass Index 28.2 Const Other: The patient was awake and alert and retching in a histrionic manner. She said that she felt terrible. HENMT Other: Face is symmetrical. Mucous membranes not obviously dry. Eyes General: appearance normal, both eyes and all related structures Sclerae: sclerae normal Pupils: Equal, round and reactive pupils present EOM: EOMs intact bilaterally Neck Neck: Yes full ROM and Yes supple Resp Effort & Inspection: normal respiratory effort Auscultation: clear to auscultation bilaterally Cardio Rate: regular rate Rhythm: regular rhythm Heart sounds: S1 normal heart sound present and S2 normal heart sound present GI Other: The abdomen was soft. She had generalized tenderness without rebound or guarding Skin Other: Skin was dry and unremarkable Neuro Other: The patient was awake but seemed distracted by her nausea. No cranial nerve deficit. She moves her extremities symmetrically. Cranial nerves: Yes Equal, round and reactive pupils present Extrem Other: No peripheral edema Medications Administered Discontinued Medications Generic Name Dose Route Start Last Admin Trade Name Freq PRN Reason Stop Dose Admin Diphenhydramine HCl 50 mg 11/02/23 07:32 11/02/23 07:43 Diphenhydramine Hcl 50 Mg/Ml Vial IVPUSH 11/02/23 07:33 50 mg ONCE ONE Administration Droperidol 2.5 mg 11/02/23 07:32 11/02/23 07:43 Droperidol 5 Mg/2 Ml Vial IVPUSH 11/02/23 07:33 2.5 mg ONCE ONE Administration Droperidol 2.5 mg 11/02/23 09:22 11/02/23 09:31 Droperidol 5 Mg/2 Ml Vial IVPUSH 11/02/23 09:23 2.5 mg ONCE ONE Administration Famotidine 20 mg 11/02/23 11:35 11/02/23 11:59 Famotidine/Pf 20 Mg/2 Ml Vial IVPUSH 11/02/23 11:36 20 mg ONCE ONE Administration Hydroxyzine HCl 25 mg 11/02/23 07:48 11/02/23 08:41 Hydroxyzine Hcl 25 Mg Tablet PO 11/02/23 07:49 Not Given ONCE ONE Hydroxyzine HCl 50 mg 11/02/23 08:39 11/02/23 08:54 Hydroxyzine Hcl 50 Mg/Ml Vial IM 11/02/23 08:40 50 mg ONCE ONE Administration Lactated Ringer's 1,000 mls @ 999 mls/hr 11/02/23 09:00 11/02/23 09:59 Lr IV 11/02/23 10:00 Infused .Q1H1M KANDY Infusion Lactated Ringer's 1,000 mls @ 999 mls/hr 11/02/23 11:45 11/02/23 13:22 Lr IV 11/02/23 12:45 Infused .Q1H1M KANDY Infusion Lactated Ringer's 1,000 mls @ 999 mls/hr 11/02/23 15:00 11/02/23 16:44 Lr IV 11/02/23 16:00 Infused .Q1H1M KANDY Infusion Lorazepam 2 mg 11/02/23 11:35 11/02/23 11:58 Lorazepam 2 Mg/Ml Vial IVPUSH 11/02/23 11:36 2 mg ONCE ONE Administration Medical Decision Making Medical Decision Making [facility] Narrative: The patient is a 38-year-old woman who presents to the emergency seems to be intractable nausea and vomiting. She has presented in his manner multiple times in the past. It seems quite clear that this is cannabis hyperemesis syndrome. She continues to use cannabis. She was treated with droperidol and IV fluids and diphenhydramine. She seemed to get temporary relief but then her symptoms seemed to ramp up again. She was given a 2nd dose of droperidol and additional IV fluids. Again she seemed to have transient improvement. Finally she was given IV lorazepam as well seemed to improve but whenever I spoke to her still profoundly nauseated and could not take anything by mouth. Ultimately she took a couple of sips of apple juice but then stopped because she said she could not possibly take anymore. At that point I contacted the hospitalist for admission for intractable nausea. Lab Data 11/02/23 07:42 11/02/23 07:42 Labs: Lab Results 11/02/23 11/02/23 Range/Units 07:42 10:27 WBC 12.2 H (4.8-10.8) X10*3/uL RBC 5.28 (4.20-5.50) X10*6/uL Hgb 13.6 (12.0-16.0) g/dl Hct 40.4 (37.0-47.0) % MCV 76.5 L (80.0-98.0) fL MCH 25.8 L (27.0-33.0) pg MCHC 33.7 (31.0-35.0) g/dl RDW 15.0 (11.0-16.0) % Plt Count 310 (160-400) X10*3/uL MPV 11.2 (9.4-12.3) fL Immature Gran % (Auto) 0.5 H (0.0-0.4) % Neut % (Auto) 80.4 H (45-73) % Lymph % (Auto) 15.1 L (20-40) % [place] % (Auto) 3.6 (2-11) % Eos % (Auto) 0.0 (0-4) % Baso % (Auto) 0.4 (0-2) % Lymph # (Auto) 1.8 (1.2-4.9) X10*3/uL [place] # (Auto) 0.4 (0.1-1.2) X10*3/uL Eos # (Auto) 0.0 (0.0-0.4) X10*3/uL Baso # (Auto) 0.1 (0.0-0.2) X10*3/uL Abs Immat Gran (auto) 0.06 H (0.00-0.03) X10*3/uL Absolute Neuts (auto) 9.8 H (2.0-8.3) x10*3/uL Absolute Nucleated RBC 0.000 (0.0-0.012) X10*3/uL Nucleated RBC % (auto) 0.0 (0.0-0.2) /100WBC Sodium 140 (135-145) mmol/L Potassium 3.7 D (3.3-5.1) mmol/L Chloride 108 (96-108) mmol/L Carbon Dioxide 19 L (22-29) mmol/L Anion Gap 17 (12-20) BUN 9 (9-16) mg/dL Creatinine 0.78 (0.5-1.4) mg/dL Estim Creat Clear Calc 105.8 Estimated GFR > 60 Random Glucose 166 H (60-115) mg/dL Calcium 9.6 D (8.4-10.2) mg/dL Magnesium 1.7 (1.6-2.6) mg/dL Total Bilirubin 0.8 (0.0-1.0) mg/dL Direct Bilirubin 0.2 (0.0-0.5) mg/dL AST 15 (5-31) U/L ALT 11 (0-31) U/L Alkaline Phosphatase 73 (39-117) U/L C-Reactive Protein 0.26 (< or = 0.50) mg/dL Total Protein 7.2 (6.5-8.0) g/dL Albumin 4.2 (3.5-5.0) g/dL Lipase 10 (8-78) U/L Beta HCG, Quant < 2 mIU/mL Urine Color Yellow Urine Appearance Clear Urine pH >= 9.0 (5.0-9.0) Ur Specific [place] 1.015 (1.005-1.025) Urine Protein Trace (Neg-Trace) mg/dL Urine Glucose (UA) Negative (Negative) mg/dL Urine Ketones 40 (Negative) mg/dL Urine Blood Negative (Negative) Urine Nitrite Negative (Negative) Ur Leukocyte Esterase Negative (Negative) Urine Opiates Screen Not Detected (Not Detect) Ur Buprenorphine Scrn Not Detected (Not Detect) ng/mL Ur Oxycodone Screen Not Detected (Not Detect) ng/mL Urine Methadone Screen Not Detected (Not Detect) ng/mL Urine Fentanyl Screen Not Detected (Not Detect) Ur Barbiturates Screen Not Detected (Not Detect) Ur Phencyclidine Scrn Not Detected (Not Detect) Ur Amphetamines Screen Not Detected (Not Detect) U Benzodiazepines Scrn Not Detected (Not Detect) Urine Cocaine Screen Not Detected (Not Detect) U Marijuana (THC) Screen POSITIVE H (Not Detect) Ethyl Alcohol < 10 mg/dL Discharge Plan Discharge Patient Disposition: Admitted As Inpatient Prescriptions: No Action metoprolol succinate 50 mg tablet extended release 24 hr 50 mg PO DAILY Qty: 90 1RF hydroxyzine HCl 25 mg tablet 25 mg PO TID PRN (Reason: anxiety) Print Language: Malay
[2023-11-02] MEDS: droPERidol 5 MG/2 ML VIAL 2.5 MG IVPUSH ×2 (07:43→09:31)
[2023-11-02] MEDS: diphenhydrAMINE HCL 50 MG/ML VIAL IVPUSH (07:43)
[2023-11-02 07:45] LABS: MANUAL DIFF FLAG NO
[2023-11-02 07:47] LABS: Basophils Absolute Auto 0.1 X10*3/uL (0.0-0.2); Basophils Percent Auto 0.4 % (0-2); Hematocrit 40.4 % (37.0-47.0); Hemoglobin 13.6 g/dl (12.0-16.0); Imm Gran Abs Auto 0.06 X10*3/uL (0.00-0.03); Imm Gran Pct Auto 0.5 % (0.0-0.4); Lymphocytes Absolute Auto 1.8 X10*3/uL (1.2-4.9); Lymphocytes Percent Auto 15.1 % (20-40); Mean Corpuscular HGB Conc 33.7 g/dl (31.0-35.0); Mean Corpuscular Hemoglobin 25.8 pg (27.0-33.0); Mean Corpuscular Volume 76.5 fL (80.0-98.0); Mean Platelet Volume 11.2 fL (9.4-12.3); Monocytes Absolute Auto 0.4 X10*3/uL (0.1-1.2); Monocytes Percent Auto 3.6 % (2-11); Neutrophils Absolute Auto 9.8 x10*3/uL (2.0-8.3); Neutrophils Percent Auto 80.4 % (45-73); Platelet Count 310 X10*3/uL (160-400); Red Blood Count 5.28 X10*6/uL (4.20-5.50); White Blood Count 12.2 X10*3/uL (4.8-10.8)
[2023-11-02 08:08] LABS: Alanine Aminotransferase 11 U/L (0-31); Albumin Level 4.2 g/dL (3.5-5.0); Alkaline Phosphatase 73 U/L (39-117); Anion Gap 17 (12-20); Aspartate Amino Transferase 15 U/L (5-31); Bilirubin Direct 0.2 mg/dL (0.0-0.5); Bilirubin Total 0.8 mg/dL (0.0-1.0); Blood Urea Nitrogen 9 mg/dL (9-16); C Reactive Protein 0.26 mg/dL (< or = 0.50); Calcium 9.6 mg/dL (8.4-10.2); Carbon Dioxide 19 mmol/L (22-29); Chloride 108 mmol/L (96-108); Creatinine Clr Calc Pharmacy 105.8; Estimated Glomerular Filt Rate > 60; Ethanol < 10 mg/dL; Glucose Random 166 mg/dL (60-115); Lipase 10 U/L (8-78); Magnesium 1.7 mg/dL (1.6-2.6); Potassium 3.7 mmol/L (3.3-5.1); Sodium 140 mmol/L (135-145); Total Protein 7.2 g/dL (6.5-8.0)
--- NOTE | 2023-11-02 08:15 | PC.NURSE ---
Pt presents to ED from home with nausea/ vomiting and severe ABD pain that started last night. Pt reports multiple episodes of vomiting, burning/aching ABD pain /. Pt obvious uncomfortable and restless. Alert and oriented, breathing elevated. Skin diaphoretic. Pt medicated per APR.
[2023-11-02] MEDS: hydrOXYzine HCL 50 MG/ML VIAL IM (08:54)
[2023-11-02] MEDS: Lactated Ringers 1,000 ML 999 ML IV ×3 (08:56→15:27)
[2023-11-02 08:59] LABS: HCG Quantitative < 2 mIU/mL
[2023-11-02 10:34] LABS: Appearance Urine Clear; Color Urine Yellow; Glucose Urine UA Negative (Negative); Leukocyte Esterase Urine Negative (Negative); Nitrite Urine Negative (Negative); PH >= 9.0 (5.0-9.0); Specific Gravity - Urine 1.015 (1.005-1.025); Urine Blood Negative (Negative); Urine Ketones 40 mg/dL (Negative); Urine Protein Trace mg/dL (Neg-Trace)
[2023-11-02 10:45] LABS: Amphetamine Screen Urine Not Detected (Not Detect); Barbiturates, Urine Not Detected (Not Detect); Benzodiazepines Screen Urine Not Detected (Not Detect); Buprenorphine Scr Not Detected (Not Detect); Cannabinoid Screen Urine POSITIVE (Not Detect); Cocaine Screen Urine Not Detected (Not Detect); Fentanyl, urine Not Detected (Not Detect); Methadone Screen, Urine Not Detected (Not Detect); Opiate Screen Urine Not Detected (Not Detect); Oxycodone Screen Urine Not Detected (Not Detect); Phencyclidine Screen Urine Not Detected (Not Detect)
[2023-11-02 11:31] VITALS: BP 140/98; PULSE 74; RESP 18; TEMP 37; O2SAT 98
[2023-11-02] MEDS: LORazepam 2 MG/ML VIAL IVPUSH (11:58)
[2023-11-02] MEDS: Famotidine/PF 20 MG/2 ML VIAL IVPUSH (11:59)
--- NOTE | 2023-11-02 17:34 | PM.IMHP ---
History of Present Illness Date of Service: 11/02/23 Chief Complaint: nausea and vomiting 38F PMH significant for?cyclic vomiting syndrome, ureteric calculus, anxiety, and chronic UTIs presented intractable nausea and vomiting. Patient has had multiple admissions for cyclic vomiting most recently discharged 10/09/2023. Reports feeling fine since then until 1 day prior to presentation started to have similar symptoms of intractable nausea and vomiting inability to tolerate p.o. denies fever chills, minimal abdominal pain. In ED lab significant for a mild metabolic acidosis with 40 ketones in the urine. Nausea was not fully controlled with antiemetics. Review of Systems Review of Systems: Yes all other systems are reviewed and are negative [facility] Medical History Shortness of breath Sinus tachycardia Cyclical vomiting Anxiety Ureteric calculus Family History Father Heart disease Other Hypokalemia Social History Household Members: Spouse and Children Housing: House Do you presently have visiting nurse or other home services: No Alcohol intake: current Alcohol intake frequency: holidays/special occasions only Patient Tobacco Use Status: Never used Tobacco Smoked in Last 30 Days: No Use of substances other than those prescribed or required for medical reasons: Yes Substance Use Type: Marijuana Advance Directives: No Patient : No Meds Allergies Allergy/AdvReac Type Severity Reaction Status Date / Time hydromorphone [Dilaudid] Allergy Unknown hives Verified 11/02/23 07:15 metoclopramide [From Reglan] Allergy Unknown Verified 11/02/23 07:15 ibuprofen [From MOTRIN] AdvReac Mild STOMACH Verified 11/02/23 07:15 UPSET Home Medications ?Medication ?Instructions ?Recorded ?Confirmed ?Last Taken ?Type hydroxyzine HCl 25 mg tablet 25 mg PO TID PRN anxiety 12/03/22 10/08/23 10/04/23 History Physical Exam Vital Signs and Narrative: Vital Signs: Last Vital Signs Temp 98.6 F 11/02/23 11:31 Pulse 74 11/02/23 11:31 Resp 18 11/02/23 11:31 BP 140/98 H 11/02/23 11:31 Pulse Ox 98 11/02/23 11:31 O2 Del Method Room Air 11/02/23 11:31 BMI result Body Mass Index 28.2 General: AO X 3, in acute distress Resp: CTA bilateral, no accessory muscles used CVS: S1,S2,RRR GI: soft, non tender, non distended Neuro: motor grossly intact, alert Psych: appropriate affect, appropriate insight Results Labs 11/02/23 07:42 11/02/23 07:42 Labs: Laboratory Results - last 24 hr 11/02/23 11/02/23 07:42 10:27 MCV 76.5 L MCH 25.8 L MCHC 33.7 RDW 15.0 Plt Count 310 MPV 11.2 Immature Gran % (Auto) 0.5 H Neut % (Auto) 80.4 H Lymph % (Auto) 15.1 L [place] % (Auto) 3.6 Eos % (Auto) 0.0 Baso % (Auto) 0.4 Lymph # (Auto) 1.8 [place] # (Auto) 0.4 Eos # (Auto) 0.0 Baso # (Auto) 0.1 Abs Immat Gran (auto) 0.06 H Absolute Neuts (auto) 9.8 H Absolute Nucleated RBC 0.000 Nucleated RBC % (auto) 0.0 Anion Gap 17 Estim Creat Clear Calc 105.8 Estimated GFR > 60 Random Glucose 166 H Calcium 9.6 D Magnesium 1.7 Total Bilirubin 0.8 Direct Bilirubin 0.2 AST 15 ALT 11 Alkaline Phosphatase 73 C-Reactive Protein 0.26 Total Protein 7.2 Albumin 4.2 Lipase 10 Beta HCG, Quant < 2 Urine Color Yellow Urine Appearance Clear Urine pH >= 9.0 Ur Specific [place] 1.015 Urine Protein Trace Urine Glucose (UA) Negative Urine Ketones 40 Urine Blood Negative Urine Nitrite Negative Ur Leukocyte Esterase Negative Urine Opiates Screen Not Detected Ur Buprenorphine Scrn Not Detected Ur Oxycodone Screen Not Detected Urine Methadone Screen Not Detected Urine Fentanyl Screen Not Detected Ur Barbiturates Screen Not Detected Ur Phencyclidine Scrn Not Detected Ur Amphetamines Screen Not Detected U Benzodiazepines Scrn Not Detected Urine Cocaine Screen Not Detected U Marijuana (THC) Screen POSITIVE H Ethyl Alcohol < 10 Assessment and Plan (1) Cyclical vomiting: Status: Acute Plan 38F PMH significant for?cyclic vomiting syndrome, ureteric calculus, anxiety, and chronic UTIs presented intractable nausea and vomiting Intractable nausea and vomiting due to cyclic vomiting syndrome likely related to cannabis use IV fluids, antiemetics, avoid cannabis Advance diet as tolerated DVT prophylaxis with Lovenox Full Code Quality Stroke Does the patient have a stroke diagnosis?: No VTE Prior VTE?: No VTE Risk Level:: Medical - moderate - high VTE Device Contraindication: Treatment Not Indicated VTE Drug Contraindication: N/A - Med Ordered
[2023-11-02] MEDS: Lactated Ringers 1,000 ML 100 ML IVCONT (17:52)
--- NOTE | 2023-11-02 18:52 | PHA.MEDREC ---
Pharmacy Consult ? Medication Reconciliation Pharmacy has completed the medication reconciliation. Spoke to patient, she said she only takes hydroxyzine 25 mg tid.
--- NOTE | 2023-11-02 19:39 | PC.NURSE ---
assumed care of pt at 1900. pt resting comfortably on stretcher in 6H, sleeping, respirations even and unlabored. continuous iv fluids running. pt to be admitted to hospital for intractable n/v. plan of care ongoing.
[2023-11-02] MEDS: Prochlorperazine Edisylate 10 MG/2 ML VIAL 5 MG IVPUSH (19:47)
[2023-11-02 23:19] VITALS: BP 132/78; PULSE 99; RESP 16; TEMP 37.2; O2SAT 97
--- NOTE | 2023-11-03 01:15 | PC.NURSE ---
pt requesting medications for nausea/vomiting and anxiety.
[2023-11-03] MEDS: LORazepam 2 MG/ML VIAL 1 MG IVPUSH ×2 (01:16→07:33)
[2023-11-03] MEDS: diphenhydrAMINE HCL 50 MG/ML VIAL 25 MG IVPUSH ×2 (01:17→07:33)
[2023-11-03 05:27] LABS: Hematocrit 38.7 % (37.0-47.0); Hemoglobin 12.7 g/dl (12.0-16.0); Mean Corpuscular HGB Conc 32.8 g/dl (31.0-35.0); Mean Corpuscular Hemoglobin 25.7 pg (27.0-33.0); Mean Corpuscular Volume 78.2 fL (80.0-98.0); Mean Platelet Volume 11.1 fL (9.4-12.3); Platelet Count 269 X10*3/uL (160-400); Red Blood Count 4.95 X10*6/uL (4.20-5.50); Red Cell Distribution Width 15.3 % (11.0-16.0); White Blood Count 14.4 X10*3/uL (4.8-10.8)
[2023-11-03 05:38] LABS: Anion Gap 12 (12-20); Blood Urea Nitrogen 8 mg/dL (9-16); Calcium 9.2 mg/dL (8.4-10.2); Carbon Dioxide 24 mmol/L (22-29); Chloride 108 mmol/L (96-108); Creatinine Clr Calc Pharmacy 105.8; Estimated Glomerular Filt Rate > 60; Glucose Fasting 100 mg/dL (60-99); Potassium 3.5 mmol/L (3.3-5.1); Sodium 140 mmol/L (135-145)
[2023-11-03] MEDS: Prochlorperazine Edisylate 10 MG/2 ML VIAL 5 MG IVPUSH (05:42)
[2023-11-03] MEDS: Lactated Ringers 1,000 ML 100 ML IVCONT (05:43)
--- NOTE | 2023-11-03 07:34 | PC.NURSE ---
pt still verbalizing feeling nauseous despite previous interventions - prn medication utilized at this time. effectiveness pending. otherwise resting in no apparent distress - requesting food. no sob/wob noted. respirations even/unlabored. plan of care ongoing.
[2023-11-03 08:10] VITALS: RESP 14
--- NOTE | 2023-11-03 08:38 | PM.DS ---
DS: Providers Provider Date of Service: 11/03/23 Date of admission: 11/02/23 17:32 Date of discharge: 11/03/23 Primary care physician: None Physician DS: Diagnosis Discharge Diagnosis (1) Cyclical vomiting: Status: Acute DS: Summary Hospital Course Hospital Course: from initial hpi: 38F PMH significant for?cyclic vomiting syndrome, ureteric calculus, anxiety, and chronic UTIs presented intractable nausea and vomiting. Patient has had multiple admissions for cyclic vomiting most recently discharged 10/09/2023. Reports feeling fine since then until 1 day prior to presentation started to have similar symptoms of intractable nausea and vomiting inability to tolerate p.o. denies fever chills, minimal abdominal pain. In ED lab significant for a mild metabolic acidosis with 40 ketones in the urine. Nausea was not fully controlled with antiemetics. hospital course: Patient was observed for intractable nausea and vomiting due to cyclic vomiting syndrome likely related to cannabis use. She was treated with IV fluids antiemetics. Symptoms significantly improved and patient was able to tolerate solid diet she will be discharged home she was encouraged to avoid cannabis use in the future. Time Attestation Discharge Coordination Time (in mins): 36 Quality: Safe Use of Opioids Does Pt have an Active Cancer Diagnosis on the Problem List?: No Quality: Stroke Does the patient have a stroke diagnosis?: No Physical Exam Vital Signs: Vital Signs: Last Vital Signs Temp 99.0 F 11/02/23 23:19 Pulse 99 11/02/23 23:19 Resp 14 11/03/23 08:10 BP 132/78 11/02/23 23:19 Pulse Ox 97 11/02/23 23:19 O2 Del Method Room Air 11/02/23 23:19 BMI result Body Mass Index 28.2 General: AO X 3, no acute distress Resp: CTA bilateral, no accessory muscles used CVS: S1,S2,RRR GI: soft, non tender, non distended Neuro: motor grossly intact, alert Psych: appropriate affect, appropriate insight DS: Data Data Completed and Pending Labs on day of discharge: Laboratory Results - last 24 hr 11/02/23 11/02/23 11/03/23 07:42 10:27 05:00 WBC 14.4 H RBC 4.95 Hgb 12.7 Hct 38.7 MCV 78.2 L MCH 25.7 L MCHC 32.8 RDW 15.3 Plt Count 269 MPV 11.1 Absolute Nucleated RBC 0.000 Nucleated RBC % (auto) 0.0 Sodium 140 Potassium 3.5 Chloride 108 Carbon Dioxide 24 Anion Gap 12 BUN 8 L Creatinine 0.78 Estim Creat Clear Calc 105.8 Estimated GFR > 60 Fasting Glucose 100 H Calcium 9.2 Magnesium 2.0 Beta HCG, Quant < 2 Urine Color Yellow Urine Appearance Clear Urine pH >= 9.0 Ur Specific [place] 1.015 Urine Protein Trace Urine Glucose (UA) Negative Urine Ketones 40 Urine Blood Negative Urine Nitrite Negative Ur Leukocyte Esterase Negative Urine Opiates Screen Not Detected Ur Buprenorphine Scrn Not Detected Ur Oxycodone Screen Not Detected Urine Methadone Screen Not Detected Urine Fentanyl Screen Not Detected Ur Barbiturates Screen Not Detected Ur Phencyclidine Scrn Not Detected Ur Amphetamines Screen Not Detected U Benzodiazepines Scrn Not Detected Urine Cocaine Screen Not Detected U Marijuana (THC) Screen POSITIVE H Discharge Plan Discharge Anticipated Discharge Date/Time: 11/03/23 08:36 Patient Disposition: Home, Self-Care Discharge Diagnosis: cyclic vomiting Referrals: Physician,None [Primary Care Provider] - 1 Week Discharge Medications: Continued hydroxyzine HCl 25 mg tablet 25 mg PO TID Discharge Orders: Discharge Order (Routine); Ordered 11/03/23 Ordered By: Vernon Alcazar Diet: Advance to usual diet Activity on Discharge: As tolerated Stand Alone Forms: Patient Portal Discharge page Print Language: Thai Care Plan Goals: avoid episodes Health Concerns: cyclic vomiting Plan of Treatment: avoid cannibas Assessment: see above
--- NOTE | 2023-11-03 08:49 | MHC.CM.PN ---
Met with patient in regards to discharge planning. Patient lives with her and children, ambulates independently and had no services prior to coming to the hospital. No services anticipated to be needed because patient is not homebound. Patient does not have a PCP at this time. Patient does not have a HCP. Obs notice explained and signed. Patient will order a Lyft herself to transport home. Continue to monitor for d/c needs.
[2023-11-03 09:30] VITALS: BP 121/69; PULSE 102; RESP 18; TEMP 36.9; O2SAT 100
== END 2023-11-03 09:31 | disposition home or self-care (01) ==
LOC: HO.ED 17:41 → HO.EDOVER 17:56
PROVIDERS: Admitting Provider Internal Medicine; Emergency Provider Emergency Medicine; Visit Provider Internal Medicine
DX: R11.15 Cyclical vomiting syndrome unrelated to migraine (principal); E87.6 Hypokalemia; R10.10 Upper abdominal pain, unspecified; Z79.899 Other long term (current) drug therapy; Z87.442 Personal history of urinary calculi; Z87.440 Personal history of urinary (tract) infections
CPT/HCPCS: 36415; 80048; 80076; 80307; 81003; 83690; 83735; 84702; 85025; 85027; 86140; 96361; 96372; 96374; 96375; 96376; 99221; 99284; 99285; J0737; J1200; J1790; J2060; J3410; J7120

== ENCOUNTER → 2023-11-02 08:45 | Outpatient (BNV) | payer OTHER, SELFPAY | PROVIDERS: Emergency Provider Emergency Medicine; Visit Provider Internal Medicine | DX: R11.15 Cyclical vomiting syndrome unrelated to migraine (principal) | CPT/HCPCS: 99222; 99239 ==

== ENCOUNTER 2024-01-13 05:11 | Emergency (ER) | payer OTHER, SELFPAY ==
[2024-01-13 05:12] VITALS: BP 149/94; PULSE 110; RESP 24; TEMP 36.7; O2SAT 99; BMI 27.4
[2024-01-13 05:35] LABS: MANUAL DIFF FLAG NO
[2024-01-13 05:36] LABS: Basophils Absolute Auto 0.1 X10*3/uL (0.0-0.2); Basophils Percent Auto 0.4 % (0-2); Eosinophils Absolute Auto 0.1 X10*3/uL (0.0-0.4); Eosinophils Percent Auto 1.1 % (0-4); Hematocrit 39.5 % (37.0-47.0); Hemoglobin 13.3 g/dl (12.0-16.0); Imm Gran Abs Auto 0.11 X10*3/uL (0.00-0.03); Imm Gran Pct Auto 0.9 % (0.0-0.4); Lymphocytes Absolute Auto 4.3 X10*3/uL (1.2-4.9); Lymphocytes Percent Auto 33.9 % (20-40); Mean Corpuscular HGB Conc 33.7 g/dl (31.0-35.0); Mean Corpuscular Hemoglobin 25.8 pg (27.0-33.0); Mean Corpuscular Volume 76.6 fL (80.0-98.0); Mean Platelet Volume 11.2 fL (9.4-12.3); Monocytes Absolute Auto 0.8 X10*3/uL (0.1-1.2); Monocytes Percent Auto 6.5 % (2-11); Neutrophils Absolute Auto 7.2 x10*3/uL (2.0-8.3); Neutrophils Percent Auto 57.2 % (45-73); Platelet Count 323 X10*3/uL (160-400); Red Blood Count 5.16 X10*6/uL (4.20-5.50); Red Cell Distribution Width 14.1 % (11.0-16.0); White Blood Count 12.6 X10*3/uL (4.8-10.8)
[2024-01-13] MEDS: LORazepam 2 MG/ML VIAL IVPUSH (05:42)
[2024-01-13] MEDS: ondansetron HCL 4 MG/2 ML VIAL IVPUSH (05:42)
[2024-01-13 05:53] LABS: Alanine Aminotransferase 11 U/L (0-31); Albumin Level 4.2 g/dL (3.5-5.0); Alkaline Phosphatase 66 U/L (39-117); Anion Gap 17 (12-20); Aspartate Amino Transferase 17 U/L (5-31); Bilirubin Total 0.9 mg/dL (0.0-1.0); Blood Urea Nitrogen 9 mg/dL (9-16); Calcium 9.6 mg/dL (8.4-10.2); Carbon Dioxide 20 mmol/L (22-29); Chloride 109 mmol/L (96-108); Creatinine Clr Calc Pharmacy 94.8; Estimated Glomerular Filt Rate > 60; Glucose Random 169 mg/dL (60-115); Lipase 9 U/L (8-78); Potassium 3.6 mmol/L (3.3-5.1); Sodium 142 mmol/L (135-145)
[2024-01-13] MEDS: Prochlorperazine Edisylate 10 MG/2 ML VIAL IVPUSH (06:44)
--- NOTE | 2024-01-13 06:58 | ED_ITS ---
HPI - Nausea/Vomiting/Diarrhea General Chief complaint: Nausea/Vomiting/Diarrhea Stated complaint: d/v Time Seen by Provider: 01/13/24 05:37 Source: patient Mode of arrival: ambulatory Limitations: no limitations History of Present Illness ED Provider: HPI Narrative: Patient's history of cannabis hyperemesis syndrome been here frequently comes here for having episodes of vomiting diarrhea started last night with increased anxiety no fever no chills no significant abdominal pain Related Data Home Medications ?Medication ?Instructions ?Recorded ?Confirmed hydroxyzine HCl 25 mg tablet 25 mg PO TID anxiety 12/03/22 11/02/23 Previous Rx's ?Medication ?Instructions ?Recorded lorazepam 1 mg tablet (Ativan) 1 mg PO TID PRN anxiety #10 tabs 01/13/24 ondansetron 4 mg disintegrating 4 mg PO Q6-8H PRN nausea and 01/13/24 tablet vomiting #7 tabs Allergies Allergy/AdvReac Type Severity Reaction Status Date / Time hydromorphone [Dilaudid] Allergy Unknown hives Verified 01/13/24 05:17 metoclopramide [From Reglan] Allergy Unknown Verified 01/13/24 05:17 ibuprofen [From MOTRIN] AdvReac Mild STOMACH Verified 01/13/24 05:17 UPSET Review of Systems 2 Review of Systems: Yes all other systems are reviewed and are negative PMFSH Past Medical History Medical History Shortness of breath Sinus tachycardia Cyclical vomiting Anxiety Ureteric calculus Family History Family History Father Heart disease Other Hypokalemia Social History Social History Household Members: Spouse and Children Housing: House Do you presently have visiting nurse or other home services: No Alcohol intake: current Alcohol intake frequency: does not drink Patient Tobacco Use Status: Never used Tobacco Smoked in Last 30 Days: No Use of substances other than those prescribed or required for medical reasons: Yes Substance Use Type: Marijuana Advance Directives: No Advance Directives Information Provided: Yes Do you have a plan to hurt others: No Plan Patient : No service: No Physical Exam 2 Vital Signs: Vital Signs: Last Vital Signs Temp 98.0 F 01/13/24 05:12 Pulse 110 H 01/13/24 05:12 Resp 24 H 01/13/24 05:12 BP 149/94 H 01/13/24 05:12 Pulse Ox 99 01/13/24 05:12 O2 Del Method Room Air 01/13/24 05:12 BMI result Body Mass Index 27.4 Appearance: Alert. Oriented X3. Anxious frequently going to the bathroom Eyes: PERRLA, No Nystagmus ENT: Pharynx normal. Oral Mucosa moist Neck: Normal inspection. Neck supple. CVS: Normal heart rate and rhythm. Pulses normal. Respiratory: No respiratory distress. Equal air entry bilateral, no wheezing/rales/rhonchi Abdomen: Soft and nontender. Bowel sounds are present, no mass palpable, no CVA tenderness Skin: Skin warm and dry. Normal skin color. Normal skin turgor. Extremities: No lower extremity edema. No calf tenderness Neuro: Oriented X 3. No motor deficit. No sensory deficit.No cerebellar signs , cranial nerves II-XII intact Medications Administered Discontinued Medications Generic Name Dose Route Start Last Admin Trade Name Freq PRN Reason Stop Dose Admin Lorazepam 2 mg 01/13/24 05:37 01/13/24 05:42 Lorazepam 2 Mg/Ml Vial IVPUSH 01/13/24 05:38 2 mg ONCE ONE Administration Ondansetron HCl 4 mg 01/13/24 05:35 01/13/24 05:42 Ondansetron Hcl 4 Mg/2 Ml Vial IVPUSH 01/13/24 05:36 4 mg ONCE ONE Administration Prochlorperazine Edisylate 10 mg 01/13/24 06:05 01/13/24 06:44 Prochlorperazine Edisylate 10 Mg/2 Ml Vial IVPUSH 01/13/24 06:06 10 mg ONCE ONE Administration Medical Decision Making Differential Diagnosis Differential Diagnoses: The differential diagnosis associated with the presentation includes Lab Data MDM Lab Attestation statement: I reviewed the patient's lab results. 01/13/24 05:31 01/13/24 05:31 Labs: Lab Results 01/13/24 Range/Units 05:31 WBC 12.6 H (4.8-10.8) X10*3/uL RBC 5.16 (4.20-5.50) X10*6/uL Hgb 13.3 (12.0-16.0) g/dl Hct 39.5 (37.0-47.0) % MCV 76.6 L (80.0-98.0) fL MCH 25.8 L (27.0-33.0) pg MCHC 33.7 (31.0-35.0) g/dl RDW 14.1 (11.0-16.0) % Plt Count 323 (160-400) X10*3/uL MPV 11.2 (9.4-12.3) fL Immature Gran % (Auto) 0.9 H (0.0-0.4) % Neut % (Auto) 57.2 (45-73) % Lymph % (Auto) 33.9 (20-40) % [place] % (Auto) 6.5 (2-11) % Eos % (Auto) 1.1 (0-4) % Baso % (Auto) 0.4 (0-2) % Lymph # (Auto) 4.3 (1.2-4.9) X10*3/uL [place] # (Auto) 0.8 (0.1-1.2) X10*3/uL Eos # (Auto) 0.1 (0.0-0.4) X10*3/uL Baso # (Auto) 0.1 (0.0-0.2) X10*3/uL Abs Immat Gran (auto) 0.11 H (0.00-0.03) X10*3/uL Absolute Neuts (auto) 7.2 (2.0-8.3) x10*3/uL Absolute Nucleated RBC 0.000 (0.0-0.012) X10*3/uL Nucleated RBC % (auto) 0.0 (0.0-0.2) /100WBC Sodium 142 (135-145) mmol/L Potassium 3.6 (3.3-5.1) mmol/L Chloride 109 H (96-108) mmol/L Carbon Dioxide 20 L (22-29) mmol/L Anion Gap 17 (12-20) BUN 9 (9-16) mg/dL Creatinine 0.86 (0.5-1.4) mg/dL Estim Creat Clear Calc 94.8 Estimated GFR > 60 Random Glucose 169 H (60-115) mg/dL Calcium 9.6 (8.4-10.2) mg/dL Total Bilirubin 0.9 (0.0-1.0) mg/dL AST 17 (5-31) U/L ALT 11 (0-31) U/L Alkaline Phosphatase 66 (39-117) U/L Total Protein 7.0 (6.5-8.0) g/dL Albumin 4.2 (3.5-5.0) g/dL Lipase 9 (8-78) U/L Discharge Plan Discharge Clinical Impression: Cannabis abuse with cannabis-induced anxiety disorder Patient Disposition: Home, Self-Care Instructions: Acute Nausea and Vomiting (ED), Cannabis Abuse (ED) Additional Instructions: Stop using cannabis Medicine for nausea and vomiting as prescribed Ativan for anxiety Follow with your PCP Prescriptions: New lorazepam [Ativan] 1 mg tablet 1 mg PO TID PRN (Reason: anxiety) Qty: 10 0RF ondansetron 4 mg tablet,disintegrating 4 mg PO Q6-8H PRN (Reason: nausea and vomiting) Qty: 7 0RF No Action hydroxyzine HCl 25 mg tablet 25 mg PO TID Print Language: Cam[place]onian
[2024-01-13] MEDS: 0.9 % Sodium Chloride 1,000 ML 999 ML IV (08:29)
[2024-01-13] MEDS: LORazepam 2 MG/ML VIAL 1 MG IVPUSH (08:30)
[2024-01-13] MEDS: Famotidine/PF 20 MG/2 ML VIAL IVPUSH (08:30)
[2024-01-13] MEDS: Haloperidol Lactate 5 MG/ML VIAL 1.4 MG IVPUSH (10:46)
[2024-01-13 12:54] VITALS: BP 131/45; PULSE 99; RESP 18; TEMP 37.3; O2SAT 100
[2024-01-13 13:09] VITALS: BP 131/45; PULSE 99; RESP 18; TEMP 37.3; O2SAT 100
== END 2024-01-13 13:10 | disposition home or self-care (01) ==
PROVIDERS: Emergency Provider Internal Medicine
DX: F12.180 Cannabis abuse with cannabis-induced anxiety disorder (principal); R11.2 Nausea with vomiting, unspecified; Z79.899 Other long term (current) drug therapy
CPT/HCPCS: 36415; 80053; 83690; 85025; 96361; 96374; 96375; 96376; 99284; 99285; J0737; J1630; J2060; J2405

== ENCOUNTER 2024-01-14 07:31 | Emergency (ER) | payer OTHER, SELFPAY ==
[2024-01-14 07:37] VITALS: BP 169/70; PULSE 91; RESP 20; TEMP 37.2; O2SAT 99; BMI 27.0
--- NOTE | 2024-01-14 07:50 | ED_ITS ---
HPI - General Adult General Chief complaint: Nausea/Vomiting/Diarrhea Stated complaint: Vomiting Time Seen by Provider: 01/14/24 07:50 Source: patient, RN notes reviewed and old records reviewed Mode of arrival: ambulatory Limitations: no limitations History of Present Illness ED Provider: Hilda KUMAR narrative: Patient is a 38-year-old female with history anxiety, chronic UTIs, cyclical vomiting presenting to the emergency department with complaint of upper abdominal pain, nausea and vomiting. Seen in this ED yesterday, multiple other visits for similar symptoms, treated for cannabinoid hyperemesis with ativan, zofran, compazine and discharged home with zofran and ativan. States she has taken the prescribed medications without relief. Denies fevers. Denies diarrhea. Denies hematemesis. complaint: nausea, vomiting, abdominal pain Onset (ago): day(s) Location: abdomen Radiation: non-radiation Quality: burning Treatments prior to arrival: other Related Data Home Medications ?Medication ?Instructions ?Recorded ?Confirmed hydroxyzine HCl 25 mg tablet 25 mg PO TID anxiety 12/03/22 11/02/23 Previous Rx's ?Medication ?Instructions ?Recorded lorazepam 1 mg tablet (Ativan) 1 mg PO TID PRN anxiety #10 tabs 01/13/24 omeprazole 40 mg capsule,delayed 40 mg PO DAILY #30 caps 01/13/24 release ondansetron 4 mg disintegrating 4 mg PO Q6-8H PRN nausea and 01/13/24 tablet vomiting #7 tabs prochlorperazine 25 mg rectal 25 mg MO BID PRN nausea and 01/14/24 suppository vomiting #12 ea Allergies Allergy/AdvReac Type Severity Reaction Status Date / Time hydromorphone [Dilaudid] Allergy Unknown hives Verified 01/14/24 07:38 metoclopramide [From Reglan] Allergy Unknown Verified 01/14/24 07:38 ibuprofen [From MOTRIN] AdvReac Mild STOMACH Verified 01/14/24 07:38 UPSET Review of Systems 2 Review of Systems: As per HPI. Yes all other systems are reviewed and are negative Constitutional: Constitutional: Reports as per HPI [facility] Past Medical History Medical History Shortness of breath Sinus tachycardia Cyclical vomiting Anxiety Ureteric calculus Family History Family History Father Heart disease Other Hypokalemia Social History Social History Household Members: Spouse and Children Housing: House Do you presently have visiting nurse or other home services: No Alcohol intake: current Alcohol intake frequency: does not drink Patient Tobacco Use Status: Never used Tobacco Substance Use Type: Marijuana Advance Directives: No Advance Directives Information Provided: Yes service: No Physical Exam ED Vital Signs: Vital Signs - 24 hr 01/14/24 07:37 01/14/24 10:26 01/14/24 14:49 Temperature 98.9 F Pulse Rate 91 Respiratory Rate 20 14 14 Blood Pressure 169/70 H Pulse Oximetry 99 Oxygen Delivery Method Room Air BMI result Body Mass Index 27.0 Vital signs have been reviewed and appear to be correct. Blood pressure elevated. Heart rate normal. Respiratory rate normal. Temperature normal. Oxygen saturation normal. Const General: cooperative, healthy appearing and no acute distress Orientation/consciousness: oriented to person, oriented to place, oriented to time and patient oriented x3 Limitations: no limitations HENMT Head: Yes normocephalic and Yes atraumatic Ears: external ears normal General nose exam: Normal external nose present Face and sinus: Yes face symmetric Mouth: oropharynx normal and moist mucous membranes Throat: Yes uvula midline Eyes Pupils: Equal, round and reactive pupils present Neck Neck: Yes normal visual inspection and Yes supple Resp Effort & Inspection: normal respiratory effort and able to speak in complete sentences Auscultation: clear to auscultation bilaterally Cardio Rate: regular rate Rhythm: regular rhythm Heart sounds: S1 normal heart sound present and S2 normal heart sound present GI Palpation (GI): Soft to palpation and nontender Auscultation: normoactive bowel sounds General: Yes no CVA tenderness Back/Spine/Pelvis Back: no CVA tenderness Skin General skin exam: elasticity normal and turgor normal Neuro General: oriented to person, oriented to place, oriented to time, patient oriented x3, moves all extremities, no focal motor deficits and CN's II-XI intact bilaterally Cranial nerves: Yes Equal, round and reactive pupils present Cognition (Neuro): normal cognition Extrem General: Yes full ROM, Yes no pedal edema and Yes no calf tenderness Psych Mental Status: mental status grossly normal Affect: normal affect Thought process: Normal thought process present Medications Administered Discontinued Medications Generic Name Dose Route Start Last Admin Trade Name Hali PRN Reason Stop Dose Admin Haloperidol Lactate 2.5 mg 01/14/24 07:52 01/14/24 08:05 Haloperidol Lactate 5 Mg/Ml Vial IVPUSH 01/14/24 07:53 2.5 mg ONCE ONE Administration Lorazepam 1 mg 01/14/24 07:52 01/14/24 08:05 Lorazepam 1 Mg Tablet PO 01/14/24 07:53 1 mg ONCE ONE Administration Prochlorperazine Edisylate 10 mg 01/14/24 12:41 01/14/24 12:57 Prochlorperazine Edisylate 10 Mg/2 Ml Vial IVPUSH 01/14/24 12:42 10 mg ONCE ONE Administration Medical Decision Making Medical Decision Making [facility] [place] Narrative: Patient is a 38-year-old female with history anxiety, chronic UTIs, cyclical vomiting presenting to the emergency department with complaint of upper abdominal pain, nausea and vomiting. On exam patient is awake, A+Ox3, BP elevated, VS otherwise WNL, afebrile, normal neurological exam without focal deficits, physical exam findings as above. Given reported symptoms and physical exam findings, initial differential includes cyclical vomiting syndrome, gastritis, PUD, GERD. Labs notable for leukocytosis likely due to ongoing vomiting, slight hypokalemia, PO replacement ordered. Patient medicated with haldol and Ativan with some improvement in symptoms. Patient then medicated with compazine with full relief of symptoms. Patient able to tolerate PO fluids in the ED. Feels comfortable with discharge home. Will send prescription for rectal Compazine. Again, advised patient to avoid cannabis use to prevent symptoms. Return precautions discussed. Patient verbalized understanding of and agreement with plan. Differential Diagnosis Differential Diagnoses: The differential diagnosis associated with the presentation includes As per [facility] [place] Admission/Observation Consideration of admission/observation: Escalation of care including admission/observation considered Patient would have been admitted to the hospital had their work up had any findings where hospital admission was appropriate and their clinical presentation warranted hospital admission. Lab Data [facility] [place] Lab Attestation statement: I reviewed the patient's lab results. As per [facility] [place] 01/14/24 08:08 01/14/24 08:08 Labs: Lab Results 01/14/24 01/14/2401/13/24 Range/Units 08:08 09:23 13:34 WBC 16.2 H (4.8-10.8) X10*3/uL RBC 5.19 (4.20-5.50) X10*6/uL Hgb 13.6 (12.0-16.0) g/dl Hct 39.8 (37.0-47.0) % MCV 76.7 L (80.0-98.0) fL MCH 26.2 L (27.0-33.0) pg MCHC 34.2 (31.0-35.0) g/dl RDW 14.3 (11.0-16.0) % Plt Count 323 (160-400) X10*3/uL MPV 10.9 (9.4-12.3) fL Immature Gran % (Auto) 0.7 H (0.0-0.4) % Neut % (Auto) 80.4 H (45-73) % Lymph % (Auto) 12.9 L (20-40) % [place] % (Auto) 5.7 (2-11) % Eos % (Auto) 0.1 (0-4) % Baso % (Auto) 0.2 (0-2) % Lymph # (Auto) 2.1 (1.2-4.9) X10*3/uL [place] # (Auto) 0.9 (0.1-1.2) X10*3/uL Eos # (Auto) 0.0 (0.0-0.4) X10*3/uL Baso # (Auto) 0.0 (0.0-0.2) X10*3/uL Abs Immat Gran (auto) 0.12 H (0.00-0.03) X10*3/uL Absolute Neuts (auto) 13.0 H (2.0-8.3) x10*3/uL Absolute Nucleated RBC 0.000 (0.0-0.012) X10*3/uL Nucleated RBC % (auto) 0.0 (0.0-0.2) /100WBC Sodium 143 (135-145) mmol/L Potassium 3.2 L (3.3-5.1) mmol/L Chloride 103 (96-108) mmol/L Carbon Dioxide 26 (22-29) mmol/L Anion Gap 17 (12-20) BUN 11 (9-16) mg/dL Creatinine 0.78 (0.5-1.4) mg/dL Estim Creat Clear Calc 103.8 Estimated GFR > 60 Random Glucose 122 H (60-115) mg/dL Calcium 10.2 D (8.4-10.2) mg/dL Magnesium 2.1 (1.6-2.6) mg/dL Total Bilirubin 1.1 H (0.0-1.0) mg/dL Direct Bilirubin 0.3 (0.0-0.5) mg/dL AST 17 (5-31) U/L ALT 12 (0-31) U/L Alkaline Phosphatase 67 (39-117) U/L Total Protein 8.0 (6.5-8.0) g/dL Albumin 4.8 (3.5-5.0) g/dL Lipase 7 L (8-78) U/L Urine Color Yellow Urine Appearance Clear Urine pH 7.0 (5.0-9.0) Ur Specific [place] 1.025 (1.005-1.025) Urine Protein 100 (2+) H (Neg-Trace) mg/dL Urine Glucose (UA) Negative (Negative) mg/dL Urine Ketones 40 (Negative) mg/dL Urine Blood Large (3+) H (Negative) Urine Nitrite Negative (Negative) Ur Leukocyte Esterase Small (1+) H (Negative) Urine RBC >20 H (0-2) /HPF Urine WBC 6-10 H (0-5) /HPF Ur Squamous Epith Cells 3-5 (0-2) /HPF Urine Bacteria Trace (None Seen) Hyaline Casts 0-2 (0-2) /LPF Urine Opiates Screen Not Detected (Not Detect) Ur Buprenorphine Scrn Not Detected (Not Detect) ng/mL Ur Oxycodone Screen Not Detected (Not Detect) ng/mL Urine Methadone Screen Not Detected (Not Detect) ng/mL Urine Fentanyl Screen Not Detected (Not Detect) Ur Barbiturates Screen Not Detected (Not Detect) Ur Phencyclidine Scrn Not Detected (Not Detect) Ur Amphetamines Screen Not Detected (Not Detect) U Benzodiazepines Scrn Not Detected (Not Detect) Urine Cocaine Screen Not Detected (Not Detect) U Marijuana (THC) Screen POSITIVE H (Not Detect) Influenza Type A (PCR) NEGATIVE (Negative) Influenza Type B (PCR) NEGATIVE (Negative) RSV RNA Qual (PCR) NEGATIVE (Negative) SARS-CoV-2 RNA (RT-PCR) NEGATIVE (Negative) External Record Review External record reviewed: Inpatient record, Office record and Outpatient record Prescription Management I considered prescription management with: Other Discharge Plan Discharge Clinical Impression: Cannabis 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 We recommend that you stop using cannabis to improve your symptoms. It can take up to one month for the cannabis to fully clear out of your system. You are being prescribed prochlorperazine for nausea and vomiting. Do not use this in combination with the ondansetron (zofran). You can also use [id number] capsaicin cream and apply this directly to your abdomen to improve her symptoms. Follow-up with your primary care provider. Return to the emergency department with new or concerning symptoms. Prescriptions: New prochlorperazine 25 mg suppository 25 mg MO BID PRN (Reason: nausea and vomiting) Qty: 12 0RF No Action lorazepam [Ativan] 1 mg tablet 1 mg PO TID PRN (Reason: anxiety) Qty: 10 0RF ondansetron 4 mg tablet,disintegrating 4 mg PO Q6-8H PRN (Reason: nausea and vomiting) Qty: 7 0RF omeprazole 40 mg capsule,delayed release(DR/EC) 40 mg PO DAILY Qty: 30 0RF hydroxyzine HCl 25 mg tablet 25 mg PO TID Print Language: Danish
[2024-01-14] MEDS: Haloperidol Lactate 5 MG/ML VIAL 2.5 MG IVPUSH (08:05)
[2024-01-14] MEDS: LORazepam 1 MG TABLET PO (08:05)
[2024-01-14 08:14] LABS: MANUAL DIFF FLAG NO
[2024-01-14 08:15] LABS: Basophils Percent Auto 0.2 % (0-2); Eosinophils Percent Auto 0.1 % (0-4); Hematocrit 39.8 % (37.0-47.0); Hemoglobin 13.6 g/dl (12.0-16.0); Imm Gran Abs Auto 0.12 X10*3/uL (0.00-0.03); Imm Gran Pct Auto 0.7 % (0.0-0.4); Lymphocytes Absolute Auto 2.1 X10*3/uL (1.2-4.9); Lymphocytes Percent Auto 12.9 % (20-40); Mean Corpuscular HGB Conc 34.2 g/dl (31.0-35.0); Mean Corpuscular Hemoglobin 26.2 pg (27.0-33.0); Mean Corpuscular Volume 76.7 fL (80.0-98.0); Mean Platelet Volume 10.9 fL (9.4-12.3); Monocytes Absolute Auto 0.9 X10*3/uL (0.1-1.2); Monocytes Percent Auto 5.7 % (2-11); Neutrophils Percent Auto 80.4 % (45-73); Platelet Count 323 X10*3/uL (160-400); Red Blood Count 5.19 X10*6/uL (4.20-5.50); Red Cell Distribution Width 14.3 % (11.0-16.0); White Blood Count 16.2 X10*3/uL (4.8-10.8)
[2024-01-14 08:29] LABS: Alanine Aminotransferase 12 U/L (0-31); Albumin Level 4.8 g/dL (3.5-5.0); Alkaline Phosphatase 67 U/L (39-117); Anion Gap 17 (12-20); Aspartate Amino Transferase 17 U/L (5-31); Bilirubin Direct 0.3 mg/dL (0.0-0.5); Bilirubin Total 1.1 mg/dL (0.0-1.0); Blood Urea Nitrogen 11 mg/dL (9-16); Calcium 10.2 mg/dL (8.4-10.2); Carbon Dioxide 26 mmol/L (22-29); Chloride 103 mmol/L (96-108); Creatinine Clr Calc Pharmacy 103.8; Estimated Glomerular Filt Rate > 60; Glucose Random 122 mg/dL (60-115); Lipase 7 U/L (8-78); Magnesium 2.1 mg/dL (1.6-2.6); Potassium 3.2 mmol/L (3.3-5.1); Sodium 143 mmol/L (135-145)
--- NOTE | 2024-01-14 09:55 | PC.NURSE ---
patient asleep, resp even and unlabored. no signs of acute distress
[2024-01-14 10:04] LABS: Influenza A PCR NEGATIVE (Negative); Influenza B PCR NEGATIVE (Negative); Resp Syncy Virus RNA Qual PCR NEGATIVE (Negative); SARS COV2 PCR INHOUSE NEGATIVE (Negative)
[2024-01-14 10:26] VITALS: RESP 14
--- NOTE | 2024-01-14 11:07 | PC.NURSE ---
patient given water for po trial
--- NOTE | 2024-01-14 11:45 | PC.NURSE ---
patient back asleep. resp even and unlabored, no sins of acute distress. patient has not had any vomiting episodes since arrival to ED
[2024-01-14] MEDS: Prochlorperazine Edisylate 10 MG/2 ML VIAL IVPUSH (12:57)
--- NOTE | 2024-01-14 13:00 | PC.NURSE ---
patient awake states shes nauseas, ED provider made aware, patient medicated per MAR
--- NOTE | 2024-01-14 13:17 | PC.NURSE ---
patient noted to be back asleep, resp even and unlabored, no signs of noted distress
[2024-01-14 13:42] LABS: Appearance Urine Clear; Color Urine Yellow; Glucose Urine UA Negative (Negative); Leukocyte Esterase Urine Small (1+) (Negative); Nitrite Urine Negative (Negative); Specific Gravity - Urine 1.025 (1.005-1.025); UMIC TRIGGER UACC YES; Urine Blood Large (3+) (Negative); Urine Ketones 40 mg/dL (Negative); Urine Protein 100 (2+) mg/dL (Neg-Trace)
[2024-01-14 13:48] LABS: Bacteria Urine Trace (None Seen); Hyaline Casts Urine 0-2 /LPF (0-2); RBC Urine >20 /HPF (0-2); UACC Culture Trigger YES
[2024-01-14 13:52] LABS: Amphetamine Screen Urine Not Detected (Not Detect); Barbiturates, Urine Not Detected (Not Detect); Benzodiazepines Screen Urine Not Detected (Not Detect); Buprenorphine Scr Not Detected (Not Detect); Cannabinoid Screen Urine POSITIVE (Not Detect); Cocaine Screen Urine Not Detected (Not Detect); Fentanyl, urine Not Detected (Not Detect); Methadone Screen, Urine Not Detected (Not Detect); Opiate Screen Urine Not Detected (Not Detect); Oxycodone Screen Urine Not Detected (Not Detect); Phencyclidine Screen Urine Not Detected (Not Detect)
[2024-01-14 14:49] VITALS: RESP 14
--- NOTE | 2024-01-14 14:49 | PC.NURSE ---
patient continues to sleep, resp even and unlabored
[2024-01-14 16:48] VITALS: BP 113/58; PULSE 89; RESP 16; TEMP 37.1; O2SAT 98
--- NOTE | 2024-01-14 16:49 | PC.NURSE ---
Shameka CARTER aware that pt refused PO potassium
== END 2024-01-14 16:49 | disposition home or self-care (01) ==
PROVIDERS: Registered Nurse Emergency; Emergency Provider Emergency Medicine Emergency Medical Services
DX: R11.2 Nausea with vomiting, unspecified (principal); F12.10 Cannabis abuse, uncomplicated; R10.10 Upper abdominal pain, unspecified; Z03.818 Encounter for observation for suspected exposure to other biological agents ruled out
CPT/HCPCS: 0241U; 36415; 80053; 80307; 81001; 82248; 83690; 83735; 85025; 87086; 96374; 96375; 99284; J0737; J1630

== ENCOUNTER 2024-01-15 06:12 | Emergency (ER) | payer OTHER, SELFPAY ==
[2024-01-15 06:16] VITALS: BP 137/89; PULSE 115; RESP 24; TEMP 36.8; O2SAT 96; BMI 27.4
--- NOTE | 2024-01-15 07:16 | ED_ITS ---
HPI - General Adult General Chief complaint: Abdominal Pain Stated complaint: severe abd pain Time Seen by Provider: 01/15/24 06:45 Source: patient Mode of arrival: ambulatory Limitations: no limitations History of Present Illness ED Provider: EMMA Herndon HPI narrative: Is a 38-year-old female history of cyclical vomiting, chronic UTIs, anxiety presenting to the emergency department with complaints of abdominal pain over the past 4 days she reports pain is worse in the epigastrium, she reports she has been having constant nausea and vomiting. She reports she has not been eating and drinking due to this. She reports these symptoms started after she was smoking marijuana this has happened to her in the past. Denies chest pain, shortness of breath, fevers, chills, headache, vision changes, dizziness and weakness. No sick contacts. Related Data Home Medications ?Medication ?Instructions ?Recorded ?Confirmed hydroxyzine HCl 25 mg tablet 25 mg PO TID anxiety 12/03/22 11/02/23 Previous Rx's ?Medication ?Instructions ?Recorded lorazepam 1 mg tablet (Ativan) 1 mg PO TID PRN anxiety #10 tabs 01/13/24 omeprazole 40 mg capsule,delayed 40 mg PO DAILY #30 caps 01/13/24 release ondansetron 4 mg disintegrating 4 mg PO Q6-8H PRN nausea and 01/13/24 tablet vomiting #7 tabs prochlorperazine 25 mg rectal 25 mg OR BID PRN nausea and 01/14/24 suppository vomiting #12 ea Allergies Allergy/AdvReac Type Severity Reaction Status Date / Time hydromorphone [Dilaudid] Allergy Unknown hives Verified 01/15/24 06:17 metoclopramide [From Reglan] Allergy Unknown Verified 01/15/24 06:17 ibuprofen [From MOTRIN] AdvReac Mild STOMACH Verified 01/15/24 06:17 UPSET Review of Systems Review of Systems: Yes all other systems are reviewed and are negative PMFSH Past Medical History Attestation statement: The following information was validated with the patient. Source: old records reviewed and nursing notes reviewed Medical History Shortness of breath Sinus tachycardia Cyclical vomiting Anxiety Ureteric calculus Family History Family History Father Heart disease Other Hypokalemia Social History Social History Household Members: Spouse and Children Housing: House Do you presently have visiting nurse or other home services: No Alcohol intake: current Alcohol intake frequency: does not drink Patient Tobacco Use Status: Never used Tobacco Substance Use Type: Marijuana Advance Directives: No Advance Directives Information Provided: Yes Do you have a plan to hurt others: No Plan service: No Physical Exam ED Vital Signs: Vital Signs - 24 hr 01/15/24 06:16 Temperature 98.2 F Pulse Rate 115 H Respiratory Rate 24 H Blood Pressure 137/89 Pulse Oximetry 96 Oxygen Delivery Method Room Air BMI result Body Mass Index 27.4 vss Appearance: Alert.? Oriented X3.? No acute distress.? Head: Normocephalic, atraumatic, no step-offs or deformities Eyes: Pupils equal, round and reactive to light.? Neck: Normal inspection.? Neck supple.? CVS: Normal heart rate and rhythm.? Pulses normal.? Respiratory: No respiratory distress.? Breath sounds normal.? Abdomen: Soft and + diffsue tenderness .? Skin: Skin warm and dry.? Normal skin color.? Normal skin turgor.? Extremities: No lower extremity edema.? No calf ttp. 5/5 strength to bilateral upper and lower extremities Neuro: Oriented X 3.? No motor deficit.? No sensory deficit. CN 2-12 intact Course Reevaluation(s) Reevaluation #1: Patient angry and states that she does not want to be here anymore she does not want her lap is repeated she states she was seen here yesterday for the same thing. She states I have hyperemesis from smoking weed . She took her oral meds Haldol, Ativan and Benadryl for nausea and vomiting. She states she would like to get out of here, she is not suicidal or homicidal. Able to make her own decisions. She will find a ride home. Patient is unwilling to comply with staff, she is not cooperative, yelling, screaming, kicking things in her room. Security at bedside. She states she just wants to get out of here. My suspicion for acute intra-abdominal etiologies is very low CT scan was ordered however patient refusing in asking to leave. She will leave against medical advice. Unlikely that she is going to sign AMA paperwork. Time: 07:51 Medications Administered Discontinued Medications Generic Name Dose Route Start Last Admin Trade Name Hali PRN Reason Stop Dose Admin Diphenhydramine HCl 25 mg 01/15/24 07:08 01/15/24 07:38 Diphenhydramine Hcl 25 Mg Capsule PO 01/15/24 07:09 25 mg ONCE ONE Administration Haloperidol 5 mg 01/15/24 07:08 01/15/24 07:38 Haloperidol 5 Mg Tablet PO 01/15/24 07:09 5 mg ONCE ONE Administration Lorazepam 2 mg 01/15/24 07:08 01/15/24 07:38 Lorazepam 1 Mg Tablet PO 01/15/24 07:09 2 mg ONCE ONE Administration Medical Decision Making Medical Decision Making [facility] Narrative: 38-year-old female presents with nausea, vomiting, abdominal discomfort ongoing for the past 4 days. History of cyclic vomiting smoked 4 days ago. Physical exam diffuse abdominal discomfort. History and physical exam concerning for viral illness versus cyclical vomiting. Unlikely acute abdomen, obstruction, appendicitis, cholecystitis, diverticulitis, pancreatitis. Will rule out metabolic derangements. Plan labs, urine, imaging Differential Diagnosis Differential Diagnoses: The differential diagnosis associated with the presentation includes (History and physical exam concerning for viral illness versus cyclical vomiting. Unlikely acute abdomen, obstruction, appendicitis, cholecystitis, diverticulitis, pancreatitis. Will rule out metabolic derangements.) Admission/Observation Consideration of admission/observation: Escalation of care including admission/observation considered Lab Data [facility] Lab Attestation statement: I reviewed the patient's lab results. Independent Interpretation I performed an independent interpretation of an: CT Scan Radiology Impression Discussion of test interpretation with radiology: I have reviewed the radiologist's reading. External Record Review External record reviewed: Inpatient record, Office record, Outpatient record, Prior outpatient labs, Prior outpatient radiology, Primary care record and Outside ED record Chronic Conditions Patient?s care impacted by: Other Critical Care Time Critical Care Time Critical Care Time: Yes Total Critical Care Time: 35 Attestation: I attest to this time spent taking care of the patient, obtaining history, physi shayy, reviewing labs, imaging, treatment of patients condition +/- specialist/hospitalist consult Discharge Plan Discharge Clinical Impression: Cyclical vomiting, Abdominal pain, Nausea & vomiting, Left against medical advice Patient Disposition: Left Against Medical Advice Instructions: Abdominal Pain (ED), Against Medical Advice (ED), Acute Nausea and Vomiting (ED) Additional Instructions: Take your medications as prescribed. If you were prescribed antibiotics today, it is important that you take your medication to their entirety, do not skip any doses, do not finish them early. Follow-up with your primary care provider this week. Return to the emergency department with new or worsening symptoms. Such as fevers, chills, chest pain, shortness of breath, nausea, vomiting, dizziness, headache, vision changes, lethargy In case of emergency call 911 Patient decided to leave against medical advice. I took the time to go over risks of leaving against medical advice including . Patient verbalizes understanding of this. Advised them to come back if they change their mind. Prescriptions: No Action lorazepam [Ativan] 1 mg tablet 1 mg PO TID PRN (Reason: anxiety) Qty: 10 0RF ondansetron 4 mg tablet,disintegrating 4 mg PO Q6-8H PRN (Reason: nausea and vomiting) Qty: 7 0RF omeprazole 40 mg capsule,delayed release(DR/EC) 40 mg PO DAILY Qty: 30 0RF prochlorperazine 25 mg suppository 25 mg OR BID PRN (Reason: nausea and vomiting) Qty: 12 0RF hydroxyzine HCl 25 mg tablet 25 mg PO TID Referrals: Jazmin Singh, [employer] [Primary Care Provider] - 2 days Print Language: Guyanese
[2024-01-15] MEDS: LORazepam 1 MG TABLET 2 MG PO (07:38)
[2024-01-15] MEDS: HaloperidoL 5 MG TABLET PO (07:38)
[2024-01-15] MEDS: diphenhydrAMINE HCL 25 MG CAPSULE PO (07:38)
--- NOTE | 2024-01-15 07:53 | PC.NURSE ---
patient medicated per MAR with po meds. patient drinking out of sink in room. patient stated she threw up in trash can. no pills or vomit noted in trashs in room. patient then started yelling at this RN stating you suck fuck off . security at bedside, patient yelling at security and this RN, kicking things in room. patient educated on behavior while in hospital, states she wants to leave, that no one has helped her the last three days she has been here. patient refusing additional labs and CT scan order. ambulating around room with steady gait.
--- NOTE | 2024-01-15 08:06 | PC.NURSE ---
patient ambulated off unit prior to being gave AMA papers / dc papers.
== END 2024-01-15 08:07 | disposition left against medical advice (07) ==
PROVIDERS: Emergency Provider Emergency Medicine Emergency Medical Services; PCP Nurse Practitioner Family
DX: R11.15 Cyclical vomiting syndrome unrelated to migraine (principal); R11.2 Nausea with vomiting, unspecified; F12.90 Cannabis use, unspecified, uncomplicated; R10.9 Unspecified abdominal pain; Z53.29 Procedure and treatment not carried out because of patient's decision for other reasons
CPT/HCPCS: 99281; 99283

== ENCOUNTER 2024-03-06 05:10 | Emergency (ER) | payer OTHER, SELFPAY ==
[2024-03-06 05:11] VITALS: BP 139/78; PULSE 107; RESP 18; TEMP 36.6; O2SAT 98; BMI 28.2
--- OUTSIDE RECORDS SUMMARY | 2024-03-06 06:10 | XMS_ITS | Data Portability ---
Author Organization [place] - [facility] Address [address] [place] [id number] Assessment Encounter Date Assessment Date Assessment LastModified by Organization Details LastModified Time 02/18/2019 02/18/2019 Overview/History : Pt is a 33yo F with PMH sig for asthma. Pt reports she has had a sore throat for the last 3 weeks but has been unable to be seen by PCP or Urgent care d/t work conflicts and sick children. She reports that last night the pain in her throat was so bad she cried. She reports that today she is starting to have right ear pain as well. The sore throat has been getting worse. She reports a cough, she denies GAXIOLA, nasal congestion, fatigue, n/v/d, fever. Exam: Pt is A/Ox3, non-toxic appearing, VSS, HRR, resp reg and unlabored on RA, lungs CTA bilat, HEENT exam pos for mod cobble stoning and tender, enlarged tonsilar lymph nodes. DDx considered, but not limited to: Pharyngitis: likely given sx and PE, consider bacterial cause as sx have been worsening over a 3 week time frame Mccormick: neg rapid mono, pt denies any fatigue or missed work Strep: rapid strep A neg, Centor score of 1. URI: unlikely viral cause given length of sx and PE Work up/Results: RSA: neg POC Mccormick: neg Plan/Discussion: Pt started on amox for bacterial pharyngitis given sx and presentation. Also advised on use of salt water gargles and use of honey and APAP for control of pain. Patients PCP contacted and updated on patient status. Patient verbalized understanding of discharge instructions and when to follow up with PCP/911/ED as needed. Patient in agreement with current plan and treatment. Time On Scene with Patient: 00:31:54 vincent Vaz available 02/18/2019 23:27:43 02/23/2019 02/23/2019 Overview/History : Pt is a 33yo F with PMH sig for Asthma. Pt reports left shoulder pain for the last 3-4 days. Reports pain only with movement. Pt is 7-8/10 with movement. Denies any known recent injury or trauma to the area. 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 Reports taking APAP with min relief of sx. Exam: Pt is A/Ox3, non-toxic appearing, VSS, HRR, resp reg and unlabored on RA, lungs CTA bilat. Decreased range of motion of the left shoulder d/t pain, pt unable to lift arm above approximately 45 decrees, pain with palpation of the anterior shoulder, ambulating well around home without assistive device. No edema noted, good CMS present. DDx considered, but not limited to: Bursitis: likely given type and location of pain, without acute injury Tendonitis: possiblely caused by repetitive motions, sx more consistent with bursitits at this time. Fracture: unlikely, no recent trauma to the area. Septic Joint: unlikely no warmth or erythema noted to the area. Work up/Results: no further testing indicated at this time. Plan/Discussion: Pt started on prednisone for inflammation as she is unable to take NSAIDs. Pt advised to rest the arm and to use heat to help with pain as well. Pt advised to follow up with PCP in 7-10 days if pain persists for further eval and referrals as needed at that time. Patients PCP contacted and updated on patient status. Patient verbalized understanding of discharge instructions and when to follow up with PCP/911/ED as needed. Patient in agreement with current plan and treatment. In order to obtain further information and compare any laboratory results/values, I have accessed old patient records. This information was pertinent in my medical decision making today. Time On Scene with Patient: 00:17:13 vincent Not available 02/23/2019 20:31:03 08/14/2020 08/14/2020 Overview/History :T his is a 34-year-old female at [facility] complaints of back pain for the past day. This occurred after lifting her 10 pound child. She has taken Tylenol with little effect. Exam: On exam patient is awake and alert she is afebrile and hemodynamically stable. She is ambulating about her home with a steady gait and does not appear at all uncomfortable. She is able to bend forward though this is somewhat uncomfortable for her. No pain with palpation of the thoracic area, no ecchymoses. DDx considered, but not limited to:I suspect the patient is suffering from thoracic strain after lifting her child. Compression fracture and likely she denies any trauma. Spinal stenosis considered but also unlikely given her age and the acute nature of this discomfort. Work up/Results: Plan/Discussion:I discussed with the patient that she likely has muscular strain from lifting her child. I have advised her to rest, apply ice and/or heat for comfort. I have given her a prescription for topical diclofenac gel as a topical anti-inflammatory should not interact with her GI system. I told her she can take Tylenol 1000 mg every 8 hours for discomfort. If pain is not improving in the next 3-4 days she will contact PCP or [facility] for reevaluation. In order to obtain further information and compare any laboratory results/values, I have accessed old patient records. This information was pertinent in my medical decision making today. Proper Personal Protective Equipment (PPE), including gloves, eye protection and masks were donned and doffed appropriately and all equipment cleaned using approved technique with germicidal disposable wipes prior to and after care of this patient according to [facility]'s infection prevention protocols. [email or web address] Not available 08/14/2020 18:03:08 Plan of Treatment Reminders Order Date Submit Date Provider Last Modified By Organization Details Last Modified Time Details Appointments None recorded. Lab rapid strep group A, throat 2019 020 [facility], [address] [place], [address], 0 21:20:44 mononucle osis, heterophi le Ab, blood 2019 020 [facility], [address] [facility], [place], [address], 0 21:20:43 Referral None recorded. Procedures None recorded. Surgeries None recorded. Imaging None recorded. Medication Orders amoxicill in 875 mg tablet 2019 020 [facility], [address] [place], [address], 0 21:20:48 prednison e 10 mg tablet 2019 020 vincent [facility], [address] [place], [address], 0 20:15:58 prednison e 20 mg tablet 2019 020 [facility], [address] [place], [address], 0 20:16:03 diclofena c 1 % topical gel 2020 021 JELANI [facility], [address] [place] [address], [address], 1 17:50:27 Patient TargetsNo targets recorded. Patient Instructions Encounter Date Encounter Id Patient Instructions Last Modified By Organization Details Last Modified Time 02/18/2019 [id number] Please seek care immediately if you develop any of the following symptoms: 1. Uncontrolled fever of at least 101? ? ?F or 38.4? ? ?C 2. Throat pain that is severe or does not start to improve within 5 to 7 days Call 911 or go to the emergency department if you: 1. Have trouble breathing 2. Cannot control your saliva (drooling) due to difficulty swallowing 3. Have swelling of the neck or tongue 4. Cannot move your neck or have trouble opening your mouth If you have additional concerns or develop a change in your condition between 8am-10pm, please call [facility] at [phone] to help navigate your care. vincent Not available 02/18/2019 21:21:06 02/23/2019 [id number] shoulder bursiti s: care instructions vincent Not available 02/23/2019 20:15:58 Thank you for yo ur visit with [facility]. We cannot always find the exact cause of your symptoms during your initial visit. You were seen today for left shoulder pain. At the time of exam you symptoms are most consistent with bursistis. You were given some prednisone to help with the pain and inflammation. If your symptoms continue without improvement and/or worsen over the next 7-10 days please follow up with your PCP for further referrals and evaluation. Please follow up with your primary care provider or specialist to be rechecked or seek medical attention if your symptoms do not go away or get worse. If you develop any new or worsening symptoms and need after hours care, please go to nearest ER and/or call 911. If you have additional concerns or develop a change in your condition between 8am-10pm, please call [facility] at [phone] to help navigate your care. vincent Not available 02/23/2019 20:15:11 Reason for Referral None Reported. Results Created Date Observation Date Name Description Value Unit Range Abnormal Flag Note LastModifiedBy Organization Detail LastModifiedTime 02/18/19 20 02/18/2019 monon ucleo sis, heter ophil e Ab, blood Mccormick negati ve Not Available [facility] [address] [place], [address], 02/18/2019 21:05:40 02/18/19 20 02/18/2019 monon ucleo sis, heter ophil e Ab, blood Control Visual ized / Valid Not Available [facility] [address] [place], [address], 02/18/2019 21:05:40 02/18/19 20 02/18/2019 rapid strep group A, throa t Strep negati ve Not Available [facility] [address] [place], [address], 02/18/2019 21:00:36 02/18/19 20 02/18/2019 rapid strep group A, throa t Control Visual ized / Valid Not Available [facility] [address] [place], [address], 02/18/2019 21:00:36 Result Notes None recorded. Problems Name Problem SNOMED Code Status Onset Date Resolution Date Notes Provider Name and Address Organization Details Recorded Time Asthma 184287786 Active 020 YUDY MADISON, SENIOR QUALITY METHODS SPECIALIST [address], [place], [address] , [place] [facility] 0 20:59:27 Problem Notes None recorded. Medical Equipment None Reported. Allergies Allergen ID Allergen Name Allergen Category Reaction Reaction Severity Criticality Documentation Date Start Date Code Code System Note Provider Name and Address Organization Details Recorded Time 89542 Dilaudid medicatio n Not available Not available Not available 02/18/2019 26865 3 RxNorm YUDY MADISON , S[employer]IOR [employer]ALITY METHODS SPECIALIST [address], [place], [address], [place] [facility] 0 20:58:39 39362 Reglan medicatio n Not available Not available Not available 02/18/2019 9230 RxNorm YUDY MADISON , SENIOR QUALITY METHODS SPECIALIST [address], [place], [address], [place] [facility] 0 20:58:43 81091 Motrin medicatio n Not available Not available Not available 02/18/2019 13641 8 RxNorm YUDY MADISON , SENIOR QUALITY METHODS SPECIALIST [address], [place] [facility] [place], [address], [place] [facility] 0 20:58:47 Medications Name Sig Start Date Stop Date Status Note LastModified by Organization Details LastModified Time acetaminoph en 325 mg tablet TAKE 3 TABLETS BY MOUTH EVERY 6 HOURS NEEDED FOR MODERATE PAIN active Not Available Not Available No t Available prednisone 10 mg tablet 60 mg PO administe red on scene. Time administe red: 2014 active Not Available Not Available Not Avai lable sucralfate 1 gram tablet TAKE 1 TABLET(S) 4 TIMES A DAY BY ORAL ROUTE DIRECTED FOR 30 DAYS. active Not Available Not Available No t Available metronidazo le 0.75 % (37.5 mg/5 gram) vaginal gel INSERT 1 APPLICATO R(S)FUL EVERY DAY BY VAGINAL ROUTE AT BEDTIME FOR 5 DAYS. active Not Available Not Available No t Available ondansetron HCl 4 mg tablet TAKE 1 TABLET BY MOUTH EVERY 8 HOURS NEEDED FOR NAUSEA/VO MITING active Not Available Not Available No t Available prednisone 20 mg tablet Take 2 tablets every day by oral route for 4 days. 2019 active Not Available Not Available Not Andre labamira oxycodone-a cetaminophe n 5 mg-325 mg tablet 02/18 completed Not Available Not Available Not Available amoxicillin 875 mg tablet Take 1 tablet every 12 hours by oral route for 10 days. active Not Available Not Available No t Available famotidine 20 mg tablet TAKE 1 TABLET BY MOUTH EVERYDAY AT BEDTIME active Not Available Not Available No t Available tamsulosin 0.4 mg capsule 02/18 completed Not Available Not Available Not Available benzonatate 100 mg capsule TAKE 1 CAPSULE (ORAL) 3 TIMES PER DAY NEEDED FOR 7 DAYS active Not Available Not Available No t Available Gas Relief (simethicon e) 80 mg chewable tablet CHEW 1 TABLET 3 TIMES A DAY, NEEDED FOR GAS active Not Available Not Available No t Available oseltamivir 75 mg capsule 02/18 completed Not Available Not Available Not Available Banophen 25 mg tablet TAKE 1 TABLET BY MOUTH THREE TIMES A DAY NEEDED active Not Available Not Available No t Available clotrimazol e-betametha sone 1 %-0.05 % topical cream APPLY TO AFFECTED AND SURROUNDI NG AREAS TWICE A DAY IN AM AND PM FOR 2 WEEKS active Not Available Not Available No t Available lidocaine 5 % topical patch 02/18 completed Not Available Not Available Not Available promethazin e 25 mg tablet TAKE 1 TABLET BY MOUTH EVERY 4 HOURS NEEDED FOR NAUSEA/VO MITING active Not Available Not Available No t Available ondansetron 4 mg disintegrat ing tablet TAKE 1 TABLET BY MOUTH THREE TIMES A DAY NEEDED active Not Available Not Available No t Available oxycodone 5 mg tablet TAKE 1 TABLET BY MOUTH EVERY 3 HOURS NEEDED FOR PAIN (MODERATE TO SEVERE SCALE 4 6) active Not Available Not Available No t Available Clotrimazol e 3 Day 2 % vaginal cream USE 1 APPLICATI ON VAGINALLY DAILY AT BEDTIME, X3 DAYS active Not Available Not Available No t Available cyclobenzap rine 5 mg tablet TAKE 1 TABLET BY MOUTH THREE TIMES A DAY active Not Available Not Available No t Available doxylamine 10 mg-pyridoxi ne (vit B6) 10 mg tablet,dangelo yed release TAKE 2 TABLETS BY MOUTH EVERY DAY active Not Available Not Available No t Available diclofenac 1 % topical gel APPLY 2 GRAMS TO THE AFFECTED AREA(S) BY TOPICAL ROUTE 4 TIMES PER DAY active Not Available Not Available No t Available Vitals Date Recorded Heart rate Body temperature Oxygen saturation Oxygen saturation in Arterial blood by Pulse oximetry Respiratory rate Systolic blood pressure Diastolic blood pressure Provider Name and Address Organization Details Last Updated DateTime 0 80 /min 98.1 [degF] 98 % 98 % 16 /min 122 mm[Hg] 78 mm[Hg] Not Available [facility] 0 20:55:07 Date Recorded Respiratory rate Body temperature Heart rate Oxygen saturation Oxygen saturation in Arterial blood by Pulse oximetry Systolic blood pressure Diastolic blood pressure Provider Name and Address Organization Details Last Updated DateTime 0 16 /min 98.6 [degF] 64 /min 99 % 99 % 116 mm[Hg] 64 mm[Hg] Not Available [facility] 0 20:08:02 Date Recorded Oxygen saturation Oxygen saturation in Arterial blood by Pulse oximetry Body temperature Respiratory rate Heart rate Systolic blood pressure Diastolic blood pressure Provider Name and Address Organization Details Last Updated DateTime 1 99 % 99 % 97.9 [degF] 16 /min 92 /min 108 mm[Hg] 62 mm[Hg] Not Available [facility] 1 17:48:55 Social History Question Answer Notes LastModified by Organizat ion Details LastModified Time Tobacco Smoking Status Former Smoker YUDY MADISON, [place] [address] [place], [address], [place] - [facility] 02/18/2019 20:59:52 Do You Have An Advance Directive? No Information not available 02/18/2019 Drugs Abused Past Marijuana Use Information not available 02/18/2019 Do You Or Have You Ever Used E-cigarettes Or Vape? Never Used Electronic Cigarettes Information not available 02/18/2019 How Many Days In The Past Year Have You Had A Heavy Drinking Consumption (4+ Female, 5+ Male)? 0 Information not available 02/18/2019 Marital Status Single Informatio n not available 02/18/2019 Sex: Unknown Functional Status None recorded. Mental Status None recorded. Family History Relationship Description Onset Age of this Age Resolved Age Notes LastModified by Organization Details LastModified Time Mother Hypertensive disorder vincent Not available 02/18 20:59:48 Medical History Condition Response Diabetes N Coronary Artery Disease N Cancer N Stroke N Depression N COPD N Asthma Y High Cholesterol N Pulmonary Embolism N Hypertension N Kidney Disease N Gynecological HistoryNo gynecological history recorded. Obstetrics History GPAL:G 0 P 0 0 0 0 Past Encounters Encounter ID Performer Location Encounter Start Date Encounter Closed Date Diagnosis/Indication Diagnosis SNOMED-CT Code Diagnosis ICD10 Code Diagnosis Note [id number] YUDY LOS, SENIOR QUALITY METHODS SPECIALIST [facility] [address] [place] [place] [address] 02/18/2019 20:51:30 02/21/2019 20:24:13 Acute pharyngitis 350271100 J02.9 [id number] YUDY MADISON, SENIOR QUALITY METHODS SPECIALIST [facility] [address] [facility] [place] [address] 02/23/2019 20:03:37 02/24/2019 12:38:15 Bursitis of left shoulder [id number] 08286 M75.52 [id number] JAVIER GEORGE, SENIOR QUALITY METHODS SPECIALIST [facility] [address] [place] [place] [address] 08/14/2020 17:48:19 08/16/2020 13:59:41 Strain of thoracic region 64690519 S29.019A Health Concerns Section Related Observation LastModified by Organization Detai ls LastModified Time None Recorded Concern Status LastModified by Organization Details LastModified Time None Recorded Advance Directives Directive N: Payers Encounter Date Sequence Insurance Name Policy Number Policy Alas Covered Member ID Alas Member ID Guarantor Name 02/18/2019 1 [place]MED[place]ARE [place] HMO) Felecia Corral [id number] Felecia Corral 02/18/2019 2 [place] Felecia Corral [id number] Felecia Corral 02/23/2019 1 [place] HMO) Felecia Corral [id number] Felecia Corral 02/23/2019 2 [place] Felecia Corral [id number] Felecia Corral 08/14/2020 1 [facility] (MEDICAID HMO) [id number] Felecia Corral [id number] Felecia Corral Notes Date Note Type Note Provider Name and Address Organization Details Recorded Time 0 text/html Pt reports sore throat for the last 3 weeks, reports sx have been getting worse. Pt states it was so bad last night she was up crying. Denies GAXIOLA, nasal congestion. Reports dry cough, right earache. Denies SOB, n/v/d. Sx have not caused missed work. Pt does have two small children in the home that go to daycare. Denies any increase in fatigue from baseline. YUDY MADISON NP [address], [place], [address], [facility] 02/18/2019 23:27:47 0 text/html Pt reports left shoulder pain, reports it has been hurting for the last 3-4 days. Pt denies any specific injury. 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 Reports pain as 7-8/10 with movement, at rest there is no pain. Pt has been taking APAP without much relief of sx. Reports the pain as feeling sharp. Reports pain to the anterior shoulder, states that area is tender to touch as well. YUDY MADISON NP [address], [place], [address], [facility] - [facility] 02/23/2019 20:31:07 1 text/html This is a 34-year-old female that is known to [facility] but new to this provider. She has a medical history significant for asthma. She contacted [facility] today with complaints of pain in the center of her back. She reports that she noted the pain today after picking up her 10 pound baby. She says she has some discomfort on inspiration and when she bends forward. No pain with palpation. She has taken Tylenol with little effect. Heat has helped somewhat. She cannot take oral anti-inflammatories due to having a history of H. pylori and she was told by her bobbin washer to avoid NSAIDs altogether. JAVIER GEORGE NP [address], [place], [address], [place] [facility] 08/14/2020 18:10:14 OBGyn Episode No OBEpisode recorded.
--- OUTSIDE RECORDS SUMMARY | 2024-03-06 06:10 | XMS_ITS | Data Portability ---
Author Organization [facility] [address] Address [address] [place] [address] Care Team Providers Care Buck Swamper Name Role Phone [facility] Primary Care Provider Assessment No assessment recorded. Plan of Treatment Reminders Order Date Submit Date Provider Last Modified By Organization Details Last Modified Time Details Appointments None recorded. Lab rapid strep group A, throat 2023 024 [email or web address] [address], [address] [place], [address], 4 09:21:08 Referral None recorded. Procedures None recorded. Surgeries None recorded. Imaging None recorded. Medication Orders amoxicillin 875 mg tablet 2023 024 [id number], [address] [place], [address], 4 09:21:40 Patient TargetsNo targets recorded. Patient Instructions Encounter Date Encounter Id Patient Instructions Last Modified By Organization Details Last Modified Time 08/23/2023 [id number] specimen collection & handling* JELANI Not available 08/23/2023 09:27:11 Reason for Referral None Reported. Results Created Date Observation Date Name Description Value Unit Range Abnormal Flag Note LastModifiedBy Organization Detail LastModifiedTime 08/23/1908/26/2023 BETA STREP GP A CULTU RE beta strep gp A culture NEGATI VE Refer ence Range : Negat sarah Not Available [facility] ([facility]) [address] [facility], [place], [address], 08/26/2023 08:09:06 08/23/19 24 08/23/2023 speci men colle ction & handl ing* Completed? Succes sfully Not Available [address] [place], [address], 08/23/2023 09:20:44 08/23/19 24 08/23/2023 speci men colle ction & handl ing* If unsuccessful , attempts 1 Not Available [address] [place] [address] [address] [place], [address], 08/23/2023 09:20:44 08/23/19 24 08/23/2023 rapid strep group A, throa t Unknown Analyte negati ve Not Available [address] [place], [address], 08/23/2023 09:10:26 08/23/19 24 08/23/2023 rapid strep group A, throa t Unknown Analyte yes Not Available [address] [place] [address] [address] [place], [address], 08/23/2023 09:10:26 Result Notes None recorded. 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 Procedures Surgical History Date Name Laterality Status Provider Name and Address Organization Details Recorded Time 02/08/19 20 ligation of fallopian tube completed Mikhail Curto PA - [facility] 08/23/2023 09:03:14 02/08/18 98 appendectomy completed Mikhail Curto PA - [facility] 08/23/2023 09:02:43 delivery completed Mikhail Curto PA - [facility] 08/23/2023 09:02:33 Imaging Results None recorded. Procedure Notes None recorded. Medical Equipment None Reported. Allergies Allergen ID Allergen Name Allergen Category Reaction Reaction Severity Criticality Documentation Date Start Date Code Code System Note Provider Name and Address Organization Details Recorded Time 274355 ibuprofen medicatio n Not available Not available Not available 08/23/2023 5640 RxNorm Unabl e to take due to h pylor i Mikhail Curto null, PA - [facility] 4 09:00:20 123052 Dilaudid medicatio n rash Not available Not available 08/23/2023 54321 3 RxNorm Mikhail Curto null, PA - [facility] 4 09:00:36 103768 Reglan medicatio n Not available Not available Not available 08/23/2023 9230 RxNorm incre ase anxie ty Mikhail Curto null, PA - [facility] 4 09:00:54 Medications Name Sig Start Date Stop Date Status Note LastModified by Organization Details LastModified Time amoxicillin 875 mg tablet Take 1 tablet every 12 hours by oral route with meal(s) for 10 days, for strep throat. 024 active Not Available Not Available Not Avai lable metoprolol tartrate 50 mg tablet Take 1 tablet every day by oral route. active Not Available Not Available No t Available Vitals Date Recorded Body height Provider Name an d Address Organization Details Last Updated DateTime 08/23/2023 167.64 cm Mikhail Curto PA - [facility] 08/23/2023 09:04:23 Date Recorded Body mass index (BMI) Body weight Provider Name and Address Organization Details Last Updated DateTime 08/23/2023 29.1 kg/m2 96202.63 g Mikhail Curto PA - [facility] 08/23/2023 09:04:35 Date Recorded Oxygen saturation Oxygen saturation in Arterial blood by Pulse oximetry Provider Name and Address Organization Details Last Updated DateTime 08/23/2023 96 % 96 % Mikhail Navarro PA - [facility] 08/23/2023 09:05:48 Date Recorded Heart rate Provider Name an d Address Organization Details Last Updated DateTime 08/23/2023 86 /min Mikhail Navarro PA - [facility] 08/23/2023 09:05:56 Date Recorded Pain severity - 0-10 verbal numeric rating [Score] - Reported Provider Name and Address Organization Details Last Updated DateTime 08/23/2023 8 Mikhail Navarro PA - [facility] 08/23/2023 09:06:00 Date Recorded Body temperature Provider Name a nd Address Organization Details Last Updated DateTime 08/23/2023 98.6 [degF] Mikhail Navarro PA - [facility] 08/23/2023 09:06:33 Date Recorded Respiratory rate Provider Name a nd Address Organization Details Last Updated DateTime 08/23/2023 14 /min Mikhail Navarro PA - [facility] 08/23/2023 09:06:50 Date Recorded Systolic blood pressure Diastolic blood pressure Provider Name and Address Organization Details Last Updated DateTime 08/23/2023 127 mm[Hg] 86 mm[Hg] Mikhail Navarro PA - [facility] 08/23/2023 09:07:23 Social History Question Answer Notes LastModified by Organizat ion Details LastModified Time Tobacco Smoking Status Never Smoker Mikhail bowens PA - [facility] 08/23/2023 09:02:05 What Is Your Level Of Alcohol Consumption? Occasional Information not available 08/23/2023 Have You Had A Flu Shot This Season? Yes Information not available 08/23/2023 Have You Had Direct Contact, Or Contact During Intimacy, With Monkeypox Rash, Scabs, Or Body Fluids From A Person With Monkeypox? No Information not available 08/23/2023 What Was The Date Of Your Most Recent Tobacco Screening? 08/23/2023 Information not available 08/23/2023 Do You Use Any Illicit Or Recreational Drugs? Yes [place] Information not available 08/23/2023 Have You Recently Traveled Abroad? No Information not available 08/23/2023 Sex: Unknown Functional Status None recorded. Mental Status None recorded. Family History Relationship Description Onset Age of this Age Resolved Age Notes LastModified by Organization Details LastModified Time Father No current problems or disability Not available 08/22 09:01:50 Mother No current problems or disability Not available 08/22 09:01:50 Medical History No medical history recorded. Gynecological History Statement/Question Response Date of LMP 08/09/2023 Is there any chance of ? No LMP Approximate Obstetrics History GPAL:G 0 P 0 0 0 0 Past Encounters Encounter ID Performer Location Encounter Start Date Encounter Closed Date Diagnosis/Indication Diagnosis SNOMED-CT Code Diagnosis ICD10 Code Diagnosis Note [id number] Dav[place] [address] [place] [address] 08/23/2023 08:55:35 08/23/2023 09:23:04 Streptococcal sore throat 31950631 J02.0 Based on your Presentati on, Exam, and Lab Testing you are being diagnosed with Pharyngiti s. Your Rapid Strep Test was Negative. Most likely your sore throat is being caused by a virus, post nasal drip, or silent acid reflux. I am going to send a Throat Culture to the lab for you to make sure you don't have a different form of strep in your throat. This will take about 72 hours for that result to return. We will contact you if it positive - if for some reason you don't get a copy of your results or hear from us - please contact our office. I am going to prescribe you and antibiotic to cover this infection. Please be sure to complete the full course of this antibiotic to prevent antibiotic resistance . It is also important to complete this antibiotic because this infection is what causes Scarlet Fever/Rheu matic Heart Disease. Antibiotic s will typically take 4-5 days to start to work with symptom improvemen t. The following are my other recommenda tions to help with symptoms and is important for this diagnosis: 1. Do not share any food or drinks - strep is passed through direct saliva exchange (NOT IN THE AIR)2. Change your toothbrush in 3-4 days so that you don't re-infect yourself after you complete the antibiotic .3. Take Ibuprofen or Tylenol if you do not have any allergies to these medication s. If you take a blood thinner you should not take NSAIDS like Ibuprofen. These medication will help with the inflammati on in your respirator y tract which should help the cough. (I would alternate between Tylenol 650 mg and your Ibuprofen 600 mg every 4 hours)4. Do not take any Cold Medication s that have a Decongesta nt in it - this will dry out your throat and make the sore throat worse.5. Drinking Hot Tea with honey can help coat and soothe your throat.6. You would be considered contagious for the next 24-48 hours, or until fever resolves. I would be seen again if you develop any of the following symptoms.1 . Fever > 101.02. Stiff neck - where you can't turn your neck3. Trouble swallowing your saliva - drooling4. Swelling of a lymph node in your throat that is painful to touch5. Difficulty breathing6 . Severe Headache Thank you for using [facility] today, please feel free to contact our office if you have any questions or concerns. Health Concerns Section Related Observation LastModified by Organization Detai ls LastModified Time None Recorded Concern Status LastModified by Organization Details LastModified Time None Recorded Advance Directives Directive None Recorded Payers Encounter Date Sequence Insurance Name Policy Number Policy Alas Covered Member ID Alas Member ID Guarantor Name 08/23/[address] [facility] - HEALTH NET PLAN (MEDICAID HMO) Felecia Singh [id number] Felecia Singh Notes Date Note Type Note Provider Name and Address Organization Details Recorded Time 4 text/html Sore throatReported bypatient.Source of patient informationInformation obtained from patient; Patient arrived at Urgent Care ambulatory; learning styles: auditory Location:throat Severity:mild Quality:sharp; burning Onset/Timin days Associated Symptoms:no sputum production; no shortness of breath; no wheezing; no vomiting; no nausea;sore throat;hoarseness;coughing; sinus pain/ congestion Context:no foreign travel; non-smoker;sick contact Modifying Factors:exposed to Strep non household Davonte CAROLINA Suárez [address] [place], [address], [place] - [facility] 08/23/2023 09:22:45 OBGyn Episode No OBEpisode recorded.
--- OUTSIDE RECORDS SUMMARY | 2024-03-06 06:10 | XMS_ITS | Clinical Summary ---
Author Organization [facility] Address [address] [place] [address] Care Team Providers Care Cloud Automation Tester Name Role Phone Unavailable Primary Care Provider Unavailabl e Social History Tobacco Use Types Packs/Day Years Used Date Smoking Tobacco: Never Assessed Sex and Gender Information Value Date Recorded Sex Assigned at Not on file Gender Identity Not on file Sexual Orientation Not on file Plan of Treatment Health Maintenance Due Date Last Done Comments DTaP,Tdap,and Td Vaccines (1 - Tdap) 08/24/2006 Hepatitis B Vaccines (1 of 3 - 19+ 3-dose series) 08/24/2006 Cervical Cancer Screening: P ap Smear 08/24/2008 Depression Screening 01/11/2022 HIV Screening 01/11/2022 Hepatitis C Screening 01/11/2022 Social Influencers of Health Screening 01/11/2022 COVID-19 Vaccine ( - 2023-2 5 season) 2023 Influenza Vaccine (#1) 2023 HIB Vaccines Aged Out No longer eligi ble based on patient's age to complete this topic HPV Vaccines Aged Out No longer eligi ble based on patient's age to complete this topic Hepatitis A Vaccines Aged Out No long er eligible based on patient's age to complete this topic IPV Vaccines Aged Out No longer eligi ble based on patient's age to complete this topic MMR Vaccines Aged Out No longer eligi ble based on patient's age to complete this topic Meningococcal ACWY Vaccine Aged Out N o longer eligible based on patient's age to complete this topic Pneumococcal Vaccine: Pediat rics (0 to 5 Years) and At-Risk Patients (6 to 64 Years) Aged Out No longer eligible b ased on patient's age to complete this topic RSV Immunization Patients Un shanthi 20 months Aged Out No longer eligible b ased on patient's age to complete this topic Varicella Vaccines Aged Out No longer eligible based on patient's age to complete this topic
--- OUTSIDE RECORDS SUMMARY | 2024-03-06 06:10 | XMS_ITS | Encounter Summary ---
Author Organization [facility] Address [address] [place], [place] [id number] Phone Care Team Providers Care Chartered Accountant Name Role Phone Unavailable Primary Care Provider Unavailabl e Encounter Details Date Type Department Care Team (Late st Contact Info) Description 12/10/2016 Conversion Encounter [facility] - [address] [address] Social History Tobacco Use Types Packs/Day Years Used Date Smoking Tobacco: Never Assessed Comments Unknown Sex and Gender Information Value Date Recorded Sex Assigned at Not on file Legal Sex Female 4:13 PM EDT Gender Identity Not on file Sexual Orientation Not on file documented as of this encounter Plan of Treatment Not on file documented as of this encounter Visit Diagnoses Not on filedocumented in this encounter
--- OUTSIDE RECORDS SUMMARY | 2024-03-06 06:10 | XMS_ITS | Clinical Summary ---
Author Organization [facility] Address [address] [place], [place] [address] Phone Care Team Providers Care Fishing Tool Supervisor Name Role Phone Unavailable Primary Care Provider Unavailabl e Immunizations Name Administration Dates Next Due DTaP 5 05/23/1992, 1,06/19/1988, 989,1987 Hep B, ped/adol 07/12/1998,01/15/1998,10/17/1997 Hib (HbOC) 07/14/1991 IPV 05/23/1992, 1,04/30/1988, 988 MMR 05/23/1992,04/14/1991 Measles 04/26/1993 Td (adult) (MBL), 2 Lf tetan us toxoid, PF, adsorbed 06/17/1999 Varicella 04/28/2000 Family History Relation Name Status Comments Father Alive Father: Alive a nd well Mother Mother: HIV Social History Tobacco Use Types Packs/Day Years Used Date Smoking Tobacco: Never Assessed Comments Unknown Sex and Gender Information Value Date Recorded Sex Assigned at Not on file Legal Sex Female 4:13 PM EDT Gender Identity Not on file Sexual Orientation Not on file Plan of Treatment Health Maintenance Due Date Last Done Comments DTaP,Tdap,and Td Vaccines (6 - Tdap) 06/18/1999 06/17/1999, 05/23/1992, 05/14/1990, Additional history exists Varicella Vaccines (2 of 2 - 2-dose childhood series) 07/21/2000 04/28/2000 Consider Men B Vaccine (1 of 2 - Bexsero 2-dose series) 2003 Influenza Vaccines (#1) 2023 COVID-19 Vaccine ( - season) 2023 HIB Vaccines Completed 07/14/1991 IPV Vaccines Completed 05/23/1992, 04/07/1990, 04/30/1988, Additional history exists MMR Vaccines Completed 05/23/1992, 04/14/1991 Hepatitis B Vaccines Completed 07/12/1998, 01/15/1998, 10/17/1997 HPV Vaccines Aged Out No longer eligi ble based on patient's age to complete this topic Hepatitis A Vaccines Aged Out No long er eligible based on patient's age to complete this topic Men B Vaccine Aged Out No longer elig ible based on patient's age to complete this topic Meningococcal Vaccine Aged Out No kim yazmin eligible based on patient's age to complete this topic Pneumococcal Vaccine Aged Out No long er eligible based on patient's age to complete this topic
--- OUTSIDE RECORDS SUMMARY | 2024-03-06 06:10 | XMS_ITS | Clinical Summary ---
Author Organization [facility] Address [address] [place] [address] Care Team Providers Care Textile Conversion Manager Name Role Phone Ana Viveros PA-C Primary Care Provider + [phone] Source Comments PLEASE NOTE, if this patient is a minor, it may be UNLAWFUL to discuss sensitive information that is contained in these records (such as FAMILY PLANNING, MENTAL HEALTH or SUBSTANCE ABUSE) with the minor patient's parent or other person without the patient's specific authorization.[facility] Allergies Active Allergy Reactions Criticality Noted Date Comments Hydromorphone 02/19/2014 Hives Ibuprofen 02/19/2014 History of peptic ulcers Metoclopramide Anxiety Low 06/15/2022 Medications albuterol HFA 90 mcg/actuation inhalerIndication s:Mild intermittent asthma, unspecified whether complicated Inhale 2 Puffs into the lungs every 4 to 6 (four to six) hours as needed for shortness of breath 18 g 1 3 Active omeprazole (PRILOSEC) [address] capsuleIndication s:Gastritis Take 1 Capsule by mouth every morning before breakfast Do not crush or chew. 90 Capsule 3 Active carbamide peroxide (DEBROX) 6.5 % otic solutionIndicatio ns:Impacted cerumen of left ear Place 5 Drops into the left ear 2 (two) times daily 15 mL 3 Active topiramate (TOPAMAX) 25 mg tabletIndications :Migraine without status migrainosus, not intractable, unspecified migraine type TAKE 1 TABLET BY MOUTH TWICE A DAY 180 Tablet 3 Active gabapentin (NEURONTIN) 300 mg capsuleIndication s:Acute left-sided low back pain with left-sided sciatica Take 1 Capsule by mouth nightly at bedtime 30 Capsule 4 Active traMADoL (ULTRAM) 50 mg tabletIndications :Acute left-sided low back pain with left-sided sciatica Take 1 Tablet by mouth 2 (two) times daily as needed for pain 30 Tablet 4 Active Active Problems Problem Noted Date Diagnosed Date Calculus of both kidneys 09/25/2014 Overview (09/25/2014): As noted on CT abdomen - done at [facility] 09/22/14 - impression multiple bilateral non obstructing renal calculi the largest up to 5 mm. No hydronephrosis Epigastric abdominal pain 08/21/2014 Overview (08/21/2014): EGD - Done at [facility] - 08/14/14 -Findings Normal esophagus , stomach Mucosa, Normal Duodenum- awaiting stomach Biopsy Unspecified asthma(493.90) 03/06/2014 Overview (06/03/2014): per PMH as noted on previous medical records -- Normal spirometry 08/30/07 Right nephrolithiasis Without evidence of hydron ephrosis 03/06/2014 Overview (03/06/2014): UG gall Bladder 06/22/13 Hx of gastritis 03/06/2014 Overview (03/06/2014): Per hospital records [facility] ADHD (attention deficit hyperactivity disorder) 02/20/2014 Overview (02/20/2014): As per hospital record reviewed Marijuana use 02/20/2014 Overview (02/20/2014): As per hospital record reviewed Immunizations Name Administration Dates Next Due Flu, Preservative Free 12/22/2019,01/30/2016 Hep B, Adult/Adol (ENERGIX/RECOMBIVAX) 2 Hep B,adult,adjuvanted (HEPLISAV) 06/15/2022 MMR (MMR II/Priorix) 02/28/2020,09/21/2011 PPD 02/17/2022,04/22/2018,09/21/2011 Pfizer COVID vaccine, COMIRN SHELTON, martin cap, 12+ 05/06/2022 Pfizer-BioNTech COVID-19 Vac cine Bivalent, (MARTIN PFIZER-BIONTECH COVID-19 VACCINE BIVALENT, (MARTIN CAP 06/04/2022 TDAP 12/20/2019,10/04/2017,07/03/2011 Family History Medical History Relation Name Comments Hypertension Mother Relation Name Status Comments Father Alive Mother Social History Tobacco Use Types Packs/Day Years Used Date Smoking Tobacco: Former Cigarettes Q uit: 04/27/2010 Smokeless Tobacco: Never Tobacco Cessation:Counseling Given: Yes Alcohol Use Standard Drinks/Week Comments Yes 0 (1 standard drink = 0.6 oz pur e alcohol) socially / occ Social Connections Answer Date Recorded Connectedness 0 10/16/2023 Financial Resource Strain Answer Date R ecorded Financial Resource Strain 0 2018 Stress Answer Date Recorded Stress 0 10/02/2018 Physical Activity Answer Date Recorded Physical Activity 0 10/02/2018 Food Insecurity Answer Date Recorded Food 0 11/04/2023 Transportation Needs Answer Date Record ed Transportation 0 10/02/2018 Housing Stability Answer Date Recorded Housing 0 10/02/2018 Safety and Environment Answer Date Elieser rded Safety 0 02/20/2021 Utilities Answer Date Recorded Utilities 0 10/02/2018 Employment Answer Date Recorded Employment 0 10/02/2018 Comments No Sex and Gender Information Value Date Recorded Sex Assigned at Female 04/22/2018 10:34 AM PDT Legal Sex Female 10:51 AM PST Gender Identity Female 04/22/2018 10:34 AM PDT Sexual Orientation Straight 04/22/2018 10 :34 AM PDT Last Filed Vital Signs Vital Sign Reading Time Taken Comments Blood Pressure 108/70 03/03/2023 4:37 PM EST Pulse 98 03/03/2023 4:37 PM EST Temperature 37.2 ??C (98.9 ??F) 03/03/2023 4:37 PM ES T Respiratory Rate 16 03/03/2023 4:37 PM EST Oxygen Saturation 96% 02/17/2022 11:20 AM EST Inhaled Oxygen Concentration - - Weight 84.2 kg (185 lb 9.6 oz) 03/03/2023 4:37 P M EST Height 167.6 cm (5' 6 ) 03/03/2023 4:37 PM EST Body Mass Index 29.96 03/03/2023 4:37 PM EST Plan of Treatment Health Maintenance Due Date Last Done Comments HPV Screening 1987 Pap + HPV 1987 Imm-Pneumococcal (2 of 2 - PCV) 01/16/2015 4 Annual Preventive Care Visit 02/20/2022 02/20/2021, 06/01/2014 Relationship Safety Screening/Counseling 02/20/2022 02/20/2021 Cervical Cancer Screening 09/07/2022 Pap Smear 09/07/2022 09/08/2019 ([place] by Outside Provider), 04/27/2014 (Managed by Outside Provider), 02/19/2014 (Managed by Outside Provider) [id number] ( season) 2023 023, 05/06/2022 Imm-Influenza (#1) 2023 12/22/2019, 1 , 01/30/2016, Additional history exists Alcohol and Drug Screen 02/09/2024 06/16/19, 02/20/2021, 04/22/2018, Additional history exists Depression Annual Screen 02/09/2024 08/06/2022, 02/08 Hypertension Screening (#1) 03/02/2024 Tobacco Screening 03/03/2024 03/03/2023 Diabetes Screening 06/15/2025 06/15/2022, 0 06/15/2022, 02/19/2014, Additional history exists Imm-DTaP/Tdap/Td (9 - Td or Tdap) 12/19/2029 12/20/2019, 10/04/2017, 07/03/2011, Additional history exists HIV Screening Completed 06/15/2022 Hepatitis C Screening Discontinued 06/15/2022 Imm-Hepatitis B Completed 06/15/2022, 09/08, 07/12/1998, Additional history exists Cervical Ablation/Cold-Knife Conization Discontinued Cervical Cryotherapy Discontinued Colposcopy Discontinued Endometrial Biopsy Discontinued Excision/Leep Discontinued HPV Genotyping Discontinued Vaginal Pap Discontinued Vulvoscopy Discontinued Procedures Procedure Name Priority Date/Time Associated Diagnosis Comments HIV 1/2 AG & AB W/RFLX (4TH GEN) Routine 06/15/2022 2:47 PM EDT Annual physical exam HEPATITIS C AB W/RFLX HCV RNA, QT, RT PCR Routine 06/15/2022 2:47 PM EDT Annual physical exam COMPREHENSIVE METABOLIC PANEL Routine 06/15/2022 2:47 PM EDT Annual physical exam from Last 3 Months or Most Recently Relevant to Health Maintenance Results * HEPATITIS C AB W/RFLX HCV RNA, QT, RT PCR (06/15/2022 2:47 PM EDT) Pathologist [facility] HEPATITIS C ANTIBODY NON-REACT SERGEY NON-REACT SERGEY [facility] SIGNAL TO CUT-OFF 0.14 <1.00 [facility] Comment: HCV antibody was non-reactive. There is no laboratory evidence of HCV infection. In most cases, no further action is required. However, if recent HCV exposure is suspected, a test for HCV RNA (test code 46010) is suggested. For additional information please refer to http://education.[employer]Ro[employer]/faq/ACC12v9 (This link is being provided for informational/ educational purposes only.) Blood Blood / Unknown 06/15/2022 2 :47 PM EDT 06/15/2022 2:47 PM EDT Ana Viveros PA-C LAB - BLOOD DRAW Edited Resu lt - Final [facility] [address] [place] [address], Always Prepped [address] [id number] * HIV 1/2 AG & AB W/RFLX (4TH GEN) (06/15/2022 2:47 PM EDT) Pathologist [facility] HIV AG/AB, 4TH GEN NON-REAC TIVE NON-REAC TIVE [facility] Comment: HIV-1 antigen and HIV-1/HIV-2 antibodies were not detected. There is no laboratory evidence of HIV infection. PLEASE NOTE: This information has been disclosed to you from records whose confidentiality may be protected by state law. ??If your state requires such protection, then the state law prohibits you from making any further disclosure of the information without the specific written consent of the person to whom it pertains, or as otherwise permitted by law. A general authorization for the release of medical or other information is NOT sufficient for this purpose. ?? For additional information please refer to http://education.[employer]Ro[employer]/faq/BSB854 (This link is being provided for informational/ educational purposes only.) The performance of this assay has not been clinically validated in patients less than 2 years old. Blood Blood / Unknown 06/15/2022 2 :47 PM EDT 06/15/2022 2:47 PM EDT us Ana Viveros PA-C LAB - BLOOD DRAW Final Resul t [facility] [address] [place] [id number], [employer] [address] [place] [id number] * (ABNORMAL) COMPREHENSIVE METABOLIC PANEL (06/15/2022 2:47 PM EDT) [facility] GLUCOSE 108(H) 65 - 99 mg/dL [facility] Comment: ?Fasting reference interval For someone without known diabetes, a glucose value between 100 and 125 mg/dL is consistent with prediabetes and should be confirmed with a follow-up test. UREA NITROGEN (BUN) 9 7 - 25 mg/dL [facility] CREATININE (blood) 0.48(L) 0.50 - 0.97 mg/dL [facility] EGFR 127 > OR = 60 mL/min/1. 73m2 [employer] Comment: The eGFR is based on the CKD-EPI 2020 equation. To calculate the new eGFR from a previous Creatinine or Cystatin C result, go to https://www.kidney.org/professionals/ kdoqi/gfr%5Fcalculator BUN/CREATININE RATIO 19 6 - 22 (calc) [facility] SODIUM 138 135 - 146 mmol/L Always Prepped [facility] POTASSIUM 3.9 3.5 - 5.3 mmol/L Always Prepped [facility] CHLORIDE 107 98 - 110 mmol/L Always Prepped [facility] CARBON DIOXIDE 22 20 - 32 mmol/L Always Prepped [facility] CALCIUM 9.2 8.6 - 10.2 mg/dL Always Prepped [facility] PROTEIN, TOTAL 6.5 6.1 - 8.1 g/dL Always Prepped [facility] ALBUMIN 4.2 3.6 - 5.1 g/dL Always Prepped [facility] GLOBULIN 2.3 1.9 - 3.7 g/dL (calc) Always Prepped [facility] ALBUMIN/GLOBULI N RATIO 1.8 1.0 - 2.5 (calc) Always Prepped [facility] BILIRUBIN, TOTAL 0.6 0.2 - 1.2 mg/dL Always Prepped [facility] ALKALINE PHOSPHATASE 54 31 - 125 U/L Always Prepped [facility] AST 10 10 - 30 U/L Always Prepped [facility] ALT 10 6 - 29 U/L Always Prepped [facility] Blood Blood / Unknown 06/15/2022 2 :47 PM EDT 06/15/2022 2:47 PM EDT Ana Viveros PA-C LAB - BLOOD DRAW Edited Resu lt - Final Always Prepped [facility] [address] [address], Always Prepped [facility] [address] [place] [phone] from Last 3 Months or Most Recently Relevant to Health Maintenance Insurance [facility] [employer] Member Subscriber Plan / Payer (Ef fective 2023-Present) Name:Harry Felecia Relation to Subscriber:Self Name:Felecia Mcdonald Payer ID:[id number] Group ID:Not on file Type:Medicaid Address: [facility] [address] [place] [address] Care Teams Textile Conversion Manager Relationship Specialty Start Date End Date Ana Viveros PA-C [address] [place] [address] PCP - General Internal Medicine 11/25/20
--- NOTE | 2024-03-06 06:26 | ED.GENADULT ---
HPI - General Adult General Chief complaint: Nausea/Vomiting/Diarrhea Stated complaint: Nausea Time Seen by Provider: 03/06/24 06:26 Source: patient, RN notes reviewed and old records reviewed Mode of arrival: ambulatory Limitations: no limitations History of Present Illness ED Provider: Hilda KUMAR narrative: Patient is a 38-year-old female with history of cannabis hyperemesis syndrome/cyclical vomiting, anxiety presenting to the emergency department with complaint of nausea, vomiting and diarrhea since yesterday. Complains of generalized abdominal pain. States that multiple children at her job have been sick with similar symptoms. Has been unable to tolerate anything p.o.. States she has used both Zofran as well as Compazine suppositories at home without relief. Denies fevers. Denies hematemesis, hematochezia, melena. Denies urinary symptoms. complaint: nausea, vomiting, diarrhea Onset (ago): day(s) Radiation: abdomen Quality: aching Associated symptoms: denies other symptoms Treatments prior to arrival: other Related Data Home Medications ?Medication ?Instructions ?Recorded ?Confirmed hydroxyzine HCl 25 mg tablet 25 mg PO TID anxiety 12/03/22 11/02/23 Previous Rx's ?Medication ?Instructions ?Recorded lorazepam 1 mg tablet (Ativan) 1 mg PO TID PRN anxiety #10 tabs 01/13/24 omeprazole 40 mg capsule,delayed 40 mg PO DAILY #30 caps 01/13/24 release ondansetron 4 mg disintegrating 4 mg PO Q6-8H PRN nausea and 01/13/24 tablet vomiting #7 tabs prochlorperazine 25 mg rectal 25 mg RI BID PRN nausea and 01/14/24 suppository vomiting #12 ea lorazepam 0.5 mg tablet 0.5 mg PO TID PRN nausea #3 tabs 03/06/24 Allergies Allergy/AdvReac Type Severity Reaction Status Date / Time hydromorphone [Dilaudid] Allergy Unknown hives Verified 03/06/24 05:13 metoclopramide [From Reglan] Allergy Unknown Verified 03/06/24 05:13 ibuprofen [From MOTRIN] AdvReac Mild STOMACH Verified 03/06/24 05:13 UPSET Review of Systems Review of Systems: As per HPI. Yes all other systems are reviewed and are negative Constitutional: Constitutional: Reports as per HPI PMFSH Past Medical History Medical History Shortness of breath Sinus tachycardia Cyclical vomiting Anxiety Ureteric calculus Family History Family History Father Heart disease Other Hypokalemia Social History Social History Household Members: Spouse and Children Housing: House Do you presently have visiting nurse or other home services: No Alcohol intake: never Patient Tobacco Use Status: Never used Tobacco Smoked in Last 30 Days: No Use of substances other than those prescribed or required for medical reasons: No Substance Use Type: Marijuana Advance Directives: No Advance Directives Information Provided: Yes Do you have a plan to hurt others: No Plan Patient : No service: No Physical Exam ED Vital Signs: Vital Signs - 24 hr 03/06/24 05:11 Temperature 97.9 F Pulse Rate 107 H Respiratory Rate 18 Blood Pressure 139/78 Pulse Oximetry 98 Oxygen Delivery Method Room Air BMI result Body Mass Index 28.2 Vital signs have been reviewed and appear to be correct. Blood pressure normal. Heart rate normal. Respiratory rate normal. Temperature normal. Oxygen saturation normal. Const General: healthy appearing, no acute distress and anxious Nutritional Appearance: average body habitus Orientation/consciousness: oriented to person, oriented to place, oriented to time and patient oriented x3 Limitations: no limitations [facility] Head: Yes normocephalic and Yes atraumatic Ears: external ears normal General nose exam: Normal external nose present Face and sinus: Yes face symmetric Mouth: oropharynx normal and moist mucous membranes Throat: Yes uvula midline Eyes Pupils: Equal, round and reactive pupils present Neck Neck: Yes normal visual inspection and Yes supple Resp Effort & Inspection: normal respiratory effort and able to speak in complete sentences Auscultation: clear to auscultation bilaterally Cardio Rate: regular rate Rhythm: regular rhythm Heart sounds: S1 normal heart sound present and S2 normal heart sound present GI Palpation (GI): Soft to palpation and nontender Auscultation: normoactive bowel sounds General: Yes no CVA tenderness Back/Spine/Pelvis Back: no CVA tenderness Skin General skin exam: elasticity normal and turgor normal Neuro General: oriented to person, oriented to place, oriented to time, patient oriented x3, moves all extremities, no focal motor deficits and CN's II-XI intact bilaterally Cranial nerves: Yes Equal, round and reactive pupils present Cognition (Neuro): normal cognition Extrem General: Yes full ROM, Yes no pedal edema and Yes no calf tenderness Psych Mental Status: mental status grossly normal Affect: Anxious affect present Thought process: Normal thought process present Medications Administered Discontinued Medications Generic Name Dose Route Start Last Admin Trade Name Freq PRN Reason Stop Dose Admin Haloperidol Lactate 2.5 mg 03/06/24 06:52 03/06/24 07:49 Haloperidol Lactate 5 Mg/Ml Vial IVPUSH 03/06/24 06:53 2.5 mg ONCE ONE Administration Sodium Chloride 1,000 mls @ 999 mls/hr 03/06/24 07:00 03/06/24 09:25 Ns IV 03/06/24 08:00 Infused .Q1H1M KANDY Infusion Lorazepam 1 mg 03/06/24 06:52 03/06/24 07:50 Lorazepam 2 Mg/Ml Vial IVPUSH 03/06/24 06:53 1 mg ONCE ONE Administration Medical Decision Making Medical Decision Making [facility] Narrative: Patient is a 38-year-old female with history of cannabis hyperemesis syndrome/cyclical vomiting, anxiety presenting to the emergency department with complaint of nausea, vomiting and diarrhea since yesterday. On exam patient is awake, A+Ox3, slightly tachycardic, VS otherwise WNL, afebrile, normal neurological exam without focal deficits, physical exam findings as above. Patient extremely anxious, unable to sit still on stretcher for exam. Given reported symptoms and physical exam findings, initial differential includes but is not limited to viral illness, covid, flu, gastroenteritis, elecrolyte abnormality, cyclical vomiting. Labs grossly within normal limits. Viral serology negative. Symptoms improved in the ED with Haldol and Ativan and IV fluids. Feel patient is stable for discharge home and patient and is in agreement with this, is much more calm at this time, not restless on the stretcher. Will send a prescription for 3, 0.5 mg Ativan tabs for nausea as this worked well for the patient in the ED, and I suspect a component of her anxiety is due to her history of cyclical vomiting/cannabis hyperemesis. Follow up with PCP as needed. Return precautions discussed. Patient verbalized understanding of and agreement with plan. Differential Diagnosis Differential Diagnoses: The differential diagnosis associated with the presentation includes As per [facility] Admission/Observation Consideration of admission/observation: Escalation of care including admission/observation considered Patient would have been admitted to the hospital had their work up had any findings where hospital admission was appropriate and their clinical presentation warranted hospital admission. Lab Data [facility] Lab Attestation statement: I reviewed the patient's lab results. As per [facility] 03/06/24 08:43 03/06/24 08:43 Labs: Lab Results 03/06/24 03/06/24 Range/Units 05:58 08:43 WBC 10.1 (4.8-10.8) X10*3/uL RBC 4.63 (4.20-5.50) X10*6/uL Hgb 11.7 L (12.0-16.0) g/dl Hct 36.6 L (37.0-47.0) % MCV 79.0 L (80.0-98.0) fL MCH 25.3 L (27.0-33.0) pg MCHC 32.0 (31.0-35.0) g/dl RDW 14.8 (11.0-16.0) % Plt Count 248 (160-400) X10*3/uL MPV 10.9 (9.4-12.3) fL Immature Gran % (Auto) 0.3 (0.0-0.4) % Neut % (Auto) 78.1 H (45-73) % Lymph % (Auto) 15.7 L (20-40) % Haines % (Auto) 5.5 (2-11) % Eos % (Auto) 0.1 (0-4) % Baso % (Auto) 0.3 (0-2) % Lymph # (Auto) 1.6 (1.2-4.9) X10*3/uL Haines # (Auto) 0.6 (0.1-1.2) X10*3/uL Eos # (Auto) 0.0 (0.0-0.4) X10*3/uL Baso # (Auto) 0.0 (0.0-0.2) X10*3/uL Abs Immat Gran (auto) 0.03 (0.00-0.03) X10*3/uL Absolute Neuts (auto) 7.9 (2.0-8.3) x10*3/uL Absolute Nucleated RBC 0.000 (0.0-0.012) X10*3/uL Nucleated RBC % (auto) 0.0 (0.0-0.2) /100WBC Sodium 140 (135-145) mmol/L Potassium 3.5 (3.3-5.1) mmol/L Chloride 113 H (96-108) mmol/L Carbon Dioxide 22 (22-29) mmol/L Anion Gap 9 L (12-20) BUN 9 (9-16) mg/dL Creatinine 0.68 (0.5-1.4) mg/dL Estim Creat Clear Calc 121.6 Estimated GFR > 60 Random Glucose 95 (60-115) mg/dL Calcium 8.3 L D (8.4-10.2) mg/dL Total Bilirubin 0.7 (0.0-1.0) mg/dL AST 14 (5-31) U/L ALT 11 (0-31) U/L Alkaline Phosphatase 60 (39-117) U/L Total Protein 6.3 L (6.5-8.0) g/dL Albumin 3.7 (3.5-5.0) g/dL Beta HCG, Quant < 2 mIU/mL Influenza Type A (PCR) NEGATIVE (Negative) Influenza Type B (PCR) NEGATIVE (Negative) RSV RNA Qual (PCR) NEGATIVE (Negative) SARS-CoV-2 RNA (RT-PCR) NEGATIVE (Negative) External Record Review External record reviewed: Inpatient record, Office record and Outpatient record Prescription Management I considered prescription management with: Other Discharge Plan Discharge Clinical Impression: Gastroenteritis Patient Disposition: Home, Self-Care Instructions: Gastroenteritis (DC) Additional Instructions: You have been evaluated in the emergency department today for nausea, vomiting, and diarrhea. Your evaluation suggests that your symptoms are most likely due to a viral illness which will improve on it's own with rest and fluids. Remember to drink plenty of fluids at home. You are being prescribed a few Ativan which you can use as per the prescription instructions for nausea. Do not mix this with any other drugs or alcohol as that can cause excessive drowsiness. Please follow up with your primary care provider within two days. Return to the emergency department if you experience worsening or uncontrolled pain, inability to tolerate fluids by mouth, difficulty breathing, fevers 100.4? F or greater, recurrent vomiting, or any other concerning symptoms. Prescriptions: New lorazepam 0.5 mg tablet 0.5 mg PO TID PRN (Reason: nausea) Qty: 3 0RF No Action lorazepam [Ativan] 1 mg tablet 1 mg PO TID PRN (Reason: anxiety) Qty: 10 0RF ondansetron 4 mg tablet,disintegrating 4 mg PO Q6-8H PRN (Reason: nausea and vomiting) Qty: 7 0RF omeprazole 40 mg capsule,delayed release(DR/EC) 40 mg PO DAILY Qty: 30 0RF prochlorperazine 25 mg suppository 25 mg RI BID PRN (Reason: nausea and vomiting) Qty: 12 0RF hydroxyzine HCl 25 mg tablet 25 mg PO TID Stand Alone Forms: Work/School Release Print Language: Tanzanian
[2024-03-06 06:40] LABS: Influenza A PCR NEGATIVE (Negative); Influenza B PCR NEGATIVE (Negative); Resp Syncy Virus RNA Qual PCR NEGATIVE (Negative); SARS COV2 PCR INHOUSE NEGATIVE (Negative)
--- NOTE | 2024-03-06 06:52 | PC.NURSE ---
pt ambulated to the bathroom, steady gait. pt tearful. pt gave a clean catch urine at this time.
[2024-03-06] MEDS: 0.9 % Sodium Chloride 1,000 ML 999 ML IV (07:48)
[2024-03-06] MEDS: Haloperidol Lactate 5 MG/ML VIAL 2.5 MG IVPUSH (07:49)
[2024-03-06] MEDS: LORazepam 2 MG/ML VIAL 1 MG IVPUSH (07:50)
[2024-03-06 08:51] LABS: MANUAL DIFF FLAG NO
[2024-03-06 08:54] LABS: Basophils Percent Auto 0.3 % (0-2); Eosinophils Percent Auto 0.1 % (0-4); Hematocrit 36.6 % (37.0-47.0); Hemoglobin 11.7 g/dl (12.0-16.0); Imm Gran Abs Auto 0.03 X10*3/uL (0.00-0.03); Imm Gran Pct Auto 0.3 % (0.0-0.4); Lymphocytes Absolute Auto 1.6 X10*3/uL (1.2-4.9); Lymphocytes Percent Auto 15.7 % (20-40); Mean Corpuscular Hemoglobin 25.3 pg (27.0-33.0); Mean Platelet Volume 10.9 fL (9.4-12.3); Monocytes Absolute Auto 0.6 X10*3/uL (0.1-1.2); Monocytes Percent Auto 5.5 % (2-11); Neutrophils Absolute Auto 7.9 x10*3/uL (2.0-8.3); Neutrophils Percent Auto 78.1 % (45-73); Platelet Count 248 X10*3/uL (160-400); Red Blood Count 4.63 X10*6/uL (4.20-5.50); Red Cell Distribution Width 14.8 % (11.0-16.0); White Blood Count 10.1 X10*3/uL (4.8-10.8)
[2024-03-06 09:27] LABS: Alanine Aminotransferase 11 U/L (0-31); Albumin Level 3.7 g/dL (3.5-5.0); Alkaline Phosphatase 60 U/L (39-117); Anion Gap 9 (12-20); Aspartate Amino Transferase 14 U/L (5-31); Bilirubin Total 0.7 mg/dL (0.0-1.0); Blood Urea Nitrogen 9 mg/dL (9-16); Calcium 8.3 mg/dL (8.4-10.2); Carbon Dioxide 22 mmol/L (22-29); Chloride 113 mmol/L (96-108); Creatinine Clr Calc Pharmacy 121.6; Estimated Glomerular Filt Rate > 60; Glucose Random 95 mg/dL (60-115); Potassium 3.5 mmol/L (3.3-5.1); Sodium 140 mmol/L (135-145); Total Protein 6.3 g/dL (6.5-8.0)
[2024-03-06 09:31] LABS: HCG Quantitative < 2 mIU/mL
[2024-03-06 09:55] VITALS: BP 114/60; PULSE 100; RESP 16; TEMP 37.3; O2SAT 97
--- NOTE | 2024-03-06 09:56 | PC.NURSE ---
IRON WORKER APPRENTICE aware of d/c vitals
== END 2024-03-06 09:56 | disposition home or self-care (01) ==
PROVIDERS: Registered Nurse Emergency; Emergency Provider Emergency Medicine; PCP Nurse Practitioner Family
DX: K52.9 Noninfective gastroenteritis and colitis, unspecified (principal); R11.2 Nausea with vomiting, unspecified; Z03.818 Encounter for observation for suspected exposure to other biological agents ruled out; F12.90 Cannabis use, unspecified, uncomplicated; R06.02 Shortness of breath
CPT/HCPCS: 0241U; 36415; 80053; 84702; 85025; 96361; 96374; 96375; 99284; J1630; J2060

== ENCOUNTER 2024-04-24 04:47 | Inpatient (IN) | payer OTHER, SELFPAY ==
--- NOTE | 2024-04-24 | ECG_ITS ---
Test Reason : EVAL FOR QTC PROLONGATION Blood Pressure : */* mmHG Vent. Rate : 75 BPM Atrial Rate : 75 BPM P-R Int : 140 ms QRS Dur : 86 ms QT Int : 364 ms P-R-T Axes : 24 27 48 degrees QTcB Int : 406 ms Normal sinus rhythm Normal ECG When compared with ECG of 08-Sep-2023 08:01, No significant change was found Referred By: Florence Mac Electronically Signed By: Osmani Quesada
--- NOTE | ~2024-04-24 | CT_ITS ---
CLINICAL HISTORY: Persistent nausea and vomitting Exam: CT of the abdomen and pelvis without intravenous contrast. Comparison: May 15, 2023. Findings: Study limited by lack of intravenous contrast. Specifically, evaluation of the vascular tree, solid abdominal organs, and gastrointestinal tract be limited without IV contrast administration. CT abdomen: Minor scarring or atelectasis within the lingula and left lower lobe. No focal areas of consolidation. No pleural effusion or pneumothorax. No acute bony lesions. Numerous stones within both kidneys. These measure up to 7 mm in size. No hydronephrosis or perinephric stranding. No ureteral calculi. Unenhanced liver, spleen, pancreas, gallbladder, and adrenal glands are unremarkable. Small hiatal hernia. Moderate fluid distention of the stomach. Small bowel loops are of normal caliber. No free fluid or free air. CT pelvis: No findings of appendicitis. Scattered diverticuli throughout the sigmoid colon without findings of diverticulitis. No free fluid or free air. Urinary bladder is minimally distended without bladder calculi. Impression: Nonobstructing bilateral renal calculi. Prominent fluid distention of the stomach with hiatal hernia. This can be seen with recent fluid ingestion or gastritis. This document has been electronically signed by: Alexey Coy MD on 04/28/2024 03:41:01
[2024-04-24 04:48] VITALS: BP 138/71; PULSE 96; RESP 20; TEMP 37; O2SAT 99; BMI 28.7
[2024-04-24 05:21] LABS: Basophils Absolute Auto 0.1 X10*3/uL (0.0-0.2); Basophils Percent Auto 0.6 % (0-2); Eosinophils Percent Auto 0.1 % (0-4); Hematocrit 38.5 % (37.0-47.0); Hemoglobin 12.9 g/dl (12.0-16.0); Imm Gran Abs Auto 0.44 X10*3/uL (0.00-0.03); Imm Gran Pct Auto 3.1 % (0.0-0.4); Lymphocytes Absolute Auto 2.7 X10*3/uL (1.2-4.9); Lymphocytes Percent Auto 19.1 % (20-40); MANUAL DIFF FLAG NO; Mean Corpuscular HGB Conc 33.5 g/dl (31.0-35.0); Mean Corpuscular Hemoglobin 25.6 pg (27.0-33.0); Mean Corpuscular Volume 76.4 fL (80.0-98.0); Mean Platelet Volume 10.7 fL (9.4-12.3); Monocytes Absolute Auto 0.6 X10*3/uL (0.1-1.2); Monocytes Percent Auto 4.3 % (2-11); Neutrophils Absolute Auto 10.2 x10*3/uL (2.0-8.3); Neutrophils Percent Auto 72.8 % (45-73); Platelet Count 290 X10*3/uL (160-400); Red Blood Count 5.04 X10*6/uL (4.20-5.50); Red Cell Distribution Width 16.1 % (11.0-16.0)
[2024-04-24] MEDS: 0.9 % Sodium Chloride 1,000 ML 999 ML IV (05:24)
[2024-04-24] MEDS: LORazepam 2 MG/ML VIAL 1 MG IVPUSH ×2 (05:24→22:48)
[2024-04-24] MEDS: diphenhydrAMINE HCL 50 MG/ML VIAL IVPUSH ×2 (05:25→11:21)
[2024-04-24] MEDS: Famotidine/PF 20 MG/2 ML VIAL IVPUSH (05:25)
[2024-04-24 05:34] LABS: Alanine Aminotransferase 8 U/L (0-31); Albumin Level 4.1 g/dL (3.5-5.0); Alkaline Phosphatase 61 U/L (39-117); Anion Gap 14 (12-20); Aspartate Amino Transferase 16 U/L (5-31); Bilirubin Total 0.4 mg/dL (0.0-1.0); Blood Urea Nitrogen 11 mg/dL (9-16); Carbon Dioxide 23 mmol/L (22-29); Chloride 109 mmol/L (96-108); Creatinine Clr Calc Pharmacy 106.8; Estimated Glomerular Filt Rate > 60; Glucose Random 195 mg/dL (60-115); Lipase 40 U/L (8-78); Potassium 3.9 mmol/L (3.3-5.1); Sodium 142 mmol/L (135-145); Total Protein 7.3 g/dL (6.5-8.0)
[2024-04-24 05:42] LABS: Troponin-I High Sensitivity < 2.7 ng/L (<3.5-17.0)
[2024-04-24 05:58] LABS: Influenza A PCR NEGATIVE (Negative); Influenza B PCR NEGATIVE (Negative); Resp Syncy Virus RNA Qual PCR NEGATIVE (Negative); SARS COV2 PCR INHOUSE NEGATIVE (Negative)
--- NOTE | 2024-04-24 06:59 | ED.ABDPAIN ---
HPI - Abdominal Pain General Chief Complaint: Abdominal Pain Stated Complaint: vomiting, severe abd pain Time Seen by Provider: 04/24/24 06:59 Source: patient and RN notes reviewed Mode of arrival: ambulatory Limitations: no limitations History of Present Illness ED Provider: Erika Salas PA-C HPI narrative: This is a 38-year-old female, with a history of cannabis hyperemesis syndrome, anxiety, who presents emergency department with complaints of sudden onset epigastric pain, nausea, intractable vomiting and diarrhea since last night. No known sick contacts. Patient states that this all started last night. She states that she has a history of cyclical vomiting syndrome, last smoked marijuana 2 nights ago. She does have epigastric pain as well. Denies alcohol use. Denies chance of as she had an operation . Denies any fevers, chills, chest pain, shortness of breath, or urinary symptoms. No recent travel, surgery, hospitalizations. No other complaints or concerns at this time. MD elicited complaint: abdominal pain Pertinent past history: other (Cyclical vomiting syndrome) Onset (ago): day(s) Pain Consistency: constant Location: none Severity: moderate Radiation: none Migration to: no migration Exacerbating factors: nothing Relieving factors: nothing Associated symptoms: nausea and vomiting Related Data Home Medications ?Medication ?Instructions ?Recorded ?Confirmed metoprolol succinate 50 mg 50 mg PO DAILY 04/24/24 04/28/24 tablet,extended release 24 hr aripiprazole 5 mg tablet 5 mg PO DAILY 04/28/24 04/28/24 clonidine HCl 0.1 mg tablet 0.1 mg PO BEDTIME PRN anxiety 04/28/24 04/28/24 Allergies Allergy/AdvReac Type Severity Reaction Status Date / Time hydromorphone [Dilaudid] Allergy Unknown hives Verified 04/28/24 02:39 metoclopramide [From Reglan] Allergy Unknown Verified 04/28/24 02:39 ibuprofen [From MOTRIN] AdvReac Mild STOMACH Verified 04/28/24 02:39 UPSET Review of Systems Review of Systems Yes all other systems are reviewed and are negative Constitutional: Reports as per HPI [facility] Past Medical History Attestation statement: The following information was validated with the patient. Medical History Shortness of breath Sinus tachycardia Cyclical vomiting Anxiety Ureteric calculus Family History Family History Father Heart disease Other Hypokalemia Social History Social History Household Members: Family Housing: House Do you presently have visiting nurse or other home services: No Alcohol intake: never Patient Tobacco Use Status: Never used Tobacco Smoked in Last 30 Days: No Use of substances other than those prescribed or required for medical reasons: Yes Substance Use Type: Marijuana Advance Directives: No Do you have a plan to hurt others: No Plan Nutrition Risks: No Nutritional Risk Patient : No service: No Physical Exam ED Vital Signs: Vital Signs - 24 hr 04/24/24 04:48 04/24/24 08:56 Temperature 98.6 F Pulse Rate 96 78 Respiratory Rate 20 17 Blood Pressure 138/71 139/79 Pulse Oximetry 99 98 Oxygen Delivery Method Room Air Room Air BMI result Body Mass Index 28.7 Const General: cooperative, comfortable and no acute distress Orientation/consciousness: patient oriented x3 Limitations: no limitations HENMT Head: Yes normal to inspection, Yes normocephalic and Yes atraumatic Ears: hearing grossly normal bilaterally General nose exam: Normal external nose present Face and sinus: Yes normal facial exam Mouth: Normal oral and palatal mucosa present, oropharynx normal and moist mucous membranes Throat: Yes posterior oropharynx normal Eyes General: appearance normal, both eyes and all related structures Eyelids: Yes eyelids normal Conjunctivae: conjunctivae normal Sclerae: sclerae normal Pupils: Equal, round and reactive pupils present EOM: EOMs intact bilaterally Neck Neck: Yes normal visual inspection, Yes full ROM and Yes no lymphadenopathy Lymphatic: no lymphadenopathy noted Chest Chest palpation & inspection: normal inspection of the chest Resp Effort & Inspection: normal respiratory effort and able to speak in complete sentences Auscultation: clear to auscultation bilaterally, no crackles, no rales, no rhonchi and no wheezes Cardio Rate: regular rate Rhythm: regular rhythm Heart sounds: S1 normal heart sound present and S2 normal heart sound present GI Other: Abdomen is soft, nontender, nondistended. Actively vomiting. Inspection: Yes normal to inspection Skin General skin exam: no rashes or lesions noted Trauma: no lacerations or abrasions Wounds: no wounds Neuro General: patient oriented x3 and moves all extremities Cranial nerves: Yes Equal, round and reactive pupils present Extrem General: Yes normal to inspection Right upper extremity: normal to inspection Left upper extremity: normal to inspection Right lower extremity: normal to inspection Left lower extremity: normal to inspection Course Reevaluation(s) Reevaluation #1: patient with intractable vomiting, she was responded well to Haldol, will medicate with Haldol, also given L of fluids. We will continue to closely monitor. Time: 07:57 Reevaluation #2: Patient re-evaluated after receiving Haldol, she still is vomiting, intractable, will try with Compazine Reevaluation #3: Patient re-evaluated. Patient reporting that she was still vomiting. Given intractable vomiting and nausea, patient needs to be admitted for further evaluation and treatment. We will discuss with hospitalist due intractable vomiting. Time: 09:35 Medical Decision Making Medical Decision Making [facility] Narrative: This is a 38-year-old female who presents emergency department evaluation of acute onset nausea, vomiting since this morning. On arrival, vital signs within normal limits. She is speaking full sentences. She was actively vomiting during my assessment. Prior to my assessment she received 1 L of normal saline, Pepcid, Ativan, and Benadryl. She states that she came to use to have nausea and vomiting will medicate with Zofran IV. We will continue to closely monitor. Patient may need Haldol however would like to trial Zofran prior. She does have mild epigastric tenderness on examination. Labs performed revealing leukocytosis at 14, chemistry with no significant significant electrolyte derangement. Leukocytosis likely secondary to vomiting. Differential diagnoses include cyclical vomiting syndrome, gastritis, PUD. Patient has been admitted to the hospital for multiple episodes of cyclical vomiting syndrome. Differential Diagnosis Differential Diagnoses: The differential diagnosis associated with the presentation includes See above Lab Data [facility] Lab Attestation statement: I reviewed the patient's lab results. See MDM and course comment 04/27/24 05:47 04/27/24 05:47 Labs: Lab Results 04/24/24 Range/Units 05:15 WBC 14.0 H (4.8-10.8) X10*3/uL RBC 5.04 (4.20-5.50) X10*6/uL Hgb 12.9 (12.0-16.0) g/dl Hct 38.5 (37.0-47.0) % MCV 76.4 L (80.0-98.0) fL MCH 25.6 L (27.0-33.0) pg MCHC 33.5 (31.0-35.0) g/dl RDW 16.1 H (11.0-16.0) % Plt Count 290 (160-400) X10*3/uL MPV 10.7 (9.4-12.3) fL Immature Gran % (Auto) 3.1 H (0.0-0.4) % Neut % (Auto) 72.8 (45-73) % Lymph % (Auto) 19.1 L (20-40) % Citrus % (Auto) 4.3 (2-11) % Eos % (Auto) 0.1 (0-4) % Baso % (Auto) 0.6 (0-2) % Lymph # (Auto) 2.7 (1.2-4.9) X10*3/uL Citrus # (Auto) 0.6 (0.1-1.2) X10*3/uL Eos # (Auto) 0.0 (0.0-0.4) X10*3/uL Baso # (Auto) 0.1 (0.0-0.2) X10*3/uL Abs Immat Gran (auto) 0.44 H (0.00-0.03) X10*3/uL Absolute Neuts (auto) 10.2 H (2.0-8.3) x10*3/uL Absolute Nucleated RBC 0.000 (0.0-0.012) X10*3/uL Nucleated RBC % (auto) 0.0 (0.0-0.2) /100WBC Sodium 142 (135-145) mmol/L Potassium 3.9 (3.3-5.1) mmol/L Chloride 109 H (96-108) mmol/L Carbon Dioxide 23 (22-29) mmol/L Anion Gap 14 (12-20) BUN 11 (9-16) mg/dL Creatinine 0.78 (0.5-1.4) mg/dL Estim Creat Clear Calc 106.8 Estimated GFR > 60 Random Glucose 195 H (60-115) mg/dL Calcium 9.0 D (8.4-10.2) mg/dL Magnesium 1.8 (1.6-2.6) mg/dL Total Bilirubin 0.4 (0.0-1.0) mg/dL AST 16 (5-31) U/L ALT 8 (0-31) U/L Alkaline Phosphatase 61 (39-117) U/L Troponin I High Sens < 2.7 (<3.5-17.0) ng/L Total Protein 7.3 (6.5-8.0) g/dL Albumin 4.1 (3.5-5.0) g/dL Lipase 40 (8-78) U/L Beta HCG, Quant < 2 mIU/mL Influenza Type A (PCR) NEGATIVE (Negative) Influenza Type B (PCR) NEGATIVE (Negative) RSV RNA Qual (PCR) NEGATIVE (Negative) SARS-CoV-2 RNA (RT-PCR) NEGATIVE (Negative) Medications Administered Discontinued Medications Generic Name Dose Route Start Last Admin Trade Name Freq PRN Reason Stop Dose Admin Calcium Carbonate 750 mg 04/24/24 10:21 04/27/24 06:12 Calcium Carbonate 750 Mg Tab.Chew PO 750 mg Q4H PRN Administration Heartburn Capsaicin 1 appl 04/24/24 10:25 04/24/24 10:43 Capsaicin 0.025% Cream 60 Gm Tube TOPICAL 1 appl QID PRN Administration n/v, epigastric pain Protocol Diphenhydramine HCl 50 mg 04/24/24 05:18 04/24/24 05:25 Diphenhydramine Hcl 50 Mg/Ml Vial IVPUSH 04/24/24 05:19 50 mg ONCE ONE Administration Diphenhydramine HCl 50 mg 04/24/24 10:31 04/24/24 11:21 Diphenhydramine Hcl 50 Mg/Ml Vial IVPUSH 04/24/24 10:32 50 mg ONCE ONE Administration Diphenhydramine HCl 25 mg 04/26/24 15:50 04/27/24 03:56 Diphenhydramine Hcl 50 Mg/Ml Vial IVPUSH 25 mg Q6H PRN Administration Nausea and Vomiting Droperidol 1.25 mg 04/24/24 13:45 04/24/24 14:18 Droperidol 5 Mg/2 Ml Vial IVPUSH 04/24/24 13:46 1.25 mg ONCE ONE Administration Famotidine 20 mg 04/24/24 05:18 04/24/24 05:25 Famotidine/Pf 20 Mg/2 Ml Vial IVPUSH 04/24/24 05:19 20 mg ONCE ONE Administration Haloperidol Lactate 2.5 mg 04/24/24 07:49 04/24/24 07:55 Haloperidol Lactate 5 Mg/Ml Vial IVPUSH 04/24/24 07:50 2.5 mg ONCE ONE Administration Haloperidol Lactate 2.5 mg 04/24/24 11:01 04/24/24 11:21 Haloperidol Lactate 5 Mg/Ml Vial IM 04/24/24 11:02 2.5 mg ONCE ONE Administration Hydroxyzine HCl 50 mg 04/25/24 04:13 04/25/24 04:38 Hydroxyzine Hcl 50 Mg/Ml Vial IM 04/25/24 04:14 50 mg ONCE ONE Administration Hydroxyzine HCl 25 mg 04/25/24 14:13 04/26/24 02:13 Hydroxyzine Hcl 25 Mg Tablet PO 25 mg Q6H PRN Administration anxiety Sodium Chloride 1,000 mls @ 999 mls/hr 04/24/24 05:18 04/24/24 20:24 Ns IV 04/24/24 06:18 Infused .Q1H1M ONE Infusion Lactated Ringer's 500 mls @ 999 mls/hr 04/24/24 08:35 04/24/24 10:35 Lr IV 04/24/24 09:05 Infused .Q31M ONE Infusion Lactated Ringer's 1,000 mls @ 125 mls/hr 04/24/24 10:30 04/26/24 14:03 Lr IVCONT Infused .Q8H KANDY Infusion Acetaminophen 1,000 mg in 100 mls @ 400 mls/hr 04/24/24 17:30 04/24/24 20:24 Ofirmev IV 04/24/24 17:44 Infused ONCE ONE Infusion Dextrose/Lactated Ringer's 1,000 mls @ 100 mls/hr 04/26/24 13:45 04/27/24 07:46 D5lr IVCONT 0 mls/hr .Q10H KANDY Infusion Lorazepam 1 mg 04/24/24 05:18 04/24/24 05:24 Lorazepam 2 Mg/Ml Vial IVPUSH 04/24/24 05:19 1 mg ONCE ONE Administration Lorazepam 1 mg 04/24/24 22:39 04/24/24 22:48 Lorazepam 2 Mg/Ml Vial IVPUSH 04/24/24 22:40 1 mg STAT STA Administration Melatonin 6 mg 04/24/24 10:21 04/26/24 23:05 Melatonin 3 Mg Tablet PO 6 mg BEDTIME PRN Administration Insomnia Metoclopramide HCl 10 mg 04/24/24 10:25 04/24/24 10:37 Metoclopramide Hcl 10 Mg/2 Ml Vial IVPUSH 04/24/24 10:26 Not Given ONCE ONE Metoprolol Succinate 50 mg 04/25/24 09:00 04/27/24 07:53 Metoprolol Succinate Er 50 Mg Tab.Er.24h PO 50 mg DAILY KANDY Administration Protocol Morphine Sulfate 2 mg 04/24/24 13:45 04/24/24 14:11 Morphine Sulfate 2 Mg/Ml Cartridge IVPUSH 04/24/24 13:46 2 mg ONCE ONE Administration Protocol Olanzapine 5 mg 04/24/24 17:26 04/24/24 17:55 Olanzapine 10 Mg Vial IM 04/24/24 17:27 5 mg ONCE ONE Administration Ondansetron HCl 4 mg 04/24/24 07:06 04/24/24 07:11 Ondansetron Hcl 4 Mg/2 Ml Vial IVPUSH 04/24/24 07:07 4 mg ONCE ONE Administration Ondansetron HCl 4 mg 04/24/24 10:21 04/26/24 23:43 Ondansetron Hcl 4 Mg/2 Ml Vial IVPUSH 4 mg Q8H PRN Administration Nausea and Vomiting Potassium Chloride 40 meq 04/27/24 09:00 04/27/24 08:08 Potassium Chloride Packet 20 Meq Packet PO 04/27/24 21:01 Not Given BID KANDY Prochlorperazine Edisylate 10 mg 04/24/24 08:37 04/24/24 08:52 Prochlorperazine Edisylate 10 Mg/2 Ml Vial IV 04/24/24 08:38 10 mg ONCE ONE Administration Prochlorperazine Edisylate 10 mg 04/24/24 22:14 04/24/24 22:26 Prochlorperazine Edisylate 10 Mg/2 Ml Vial IVPUSH 04/24/24 22:15 10 mg ONCE ONE Administration Prochlorperazine Edisylate 5 mg 04/25/24 09:12 04/27/24 01:20 Prochlorperazine Edisylate 10 Mg/2 Ml Vial IVPUSH 5 mg Q6H PRN Administration Nausea and Vomiting Sodium Chloride 3 ml 04/24/24 16:00 04/27/24 08:40 0.9 % Sodium Chloride Flush 3 Ml Syringe IVFLUSH Not Given QSHIFT [facility] Discharge Plan Discharge Clinical Impression: Cyclical vomiting syndrome Patient Disposition: Admitted As Inpatient Interventions: Admission Worksheet (ED) Last Done: 04/24/24 20:40 Discharge Date/Time: 04/24/24 22:03
[2024-04-24] MEDS: ondansetron HCL 4 MG/2 ML VIAL IVPUSH (07:11)
[2024-04-24 07:45] LABS: HCG Quantitative < 2 mIU/mL
[2024-04-24] MEDS: Haloperidol Lactate 5 MG/ML VIAL 2.5 MG IVPUSH (07:55)
[2024-04-24] MEDS: Lactated Ringers 500 ML 999 ML IV (08:52)
[2024-04-24] MEDS: Prochlorperazine Edisylate 10 MG/2 ML VIAL IV (08:52)
[2024-04-24 08:56] VITALS: BP 139/79; PULSE 78; RESP 17; O2SAT 98
--- NOTE | 2024-04-24 10:32 | P.HPHOSP_ITS ---
History of Present Illness Date of Service: 04/24/24 Attending physician on admission: [facility] Chief Complaint: Intractable nausea and vomiting 38-year-old female with history of cyclic vomiting syndrome who smokes marijuana every few days, last use several days ago, presents to the ED early this morning for evaluation of intractable nausea and vomiting. She states since last night, she has not been able to eat or drink due to persistent nausea and vomiting. She has vomited over 10 times but denies any hematemesis. She is reporting diffuse abdominal pain as well as chills and weakness. No fevers, rigors, diarrhea, cough, shortness breath, chest pain. She has had similar symptoms in the past. Advised to avoid cannibis but has not. Since arrival, she has been tachycardic and intermittently tachypneic but no fevers and blood pressures are stable. She has a leukocytosis of 14.0. Renal function and electrolyte levels are normal. HCG is negative. Negative for COVID-19, RSV, influenza. In the ED, she has received lorazepam, Haldol, famotidine, Compro, Benadryl, ondansetron as well as 2 L IV fluid. Despite this, patient remains intolerant of p.o. and continues vomiting. She has had several admissions in the past for the same, most recently 10/2023. Review of Systems 2 Review of Systems: Yes all other systems are reviewed and are negative [facility] Medical History Shortness of breath Sinus tachycardia Cyclical vomiting Anxiety Ureteric calculus Family History Father Heart disease Other Hypokalemia Social History Household Members: Family Housing: House Do you presently have visiting nurse or other home services: No Alcohol intake: never Patient Tobacco Use Status: Current everyday Tobacco user Smoked in Last 30 Days: No Use of substances other than those prescribed or required for medical reasons: No Substance Use Type: Marijuana Currently Displaying Signs/Symptoms of Drug Intoxication Withdrawal: No Have you been hit, kicked, punched, or otherwise hurt by someone within the past year? If so, by whom?: No Do you feel safe in your current relationship?: Yes Is there a partner from a previous relationship who is making you feel unsafe now?: No Are you made to feel afraid or neglected: No Advance Directives: No Advance Directives Information Provided: Yes Do you have a plan to hurt others: No Plan Recently lost weight without trying: No Nutrition Risks: Acute nausea or vomiting x1 week Patient : No : No Poor oral hygiene: No service: No Meds Allergies Allergy/AdvReac Type Severity Reaction Status Date / Time hydromorphone [Dilaudid] Allergy Unknown hives Verified 04/24/24 04:52 metoclopramide [From Reglan] Allergy Unknown Verified 04/24/24 04:52 ibuprofen [From MOTRIN] AdvReac Mild STOMACH Verified 04/24/24 04:52 UPSET Active Medications: Current Medications Acetaminophen (Acetaminophen 325 Mg Tablet) 650 mg PO Q6H PRN PRN Reason: Pain, Mild 1-3,fever,headache Calcium Carbonate (Calcium Carbonate 750 Mg Tab.Chew) 750 mg PO Q4H PRN PRN Reason: Heartburn Capsaicin (Capsaicin 0.025% Cream 60 Gm Tube) 1 appl TOPICAL QID PRN; Protocol PRN Reason: n/v, epigastric pain Lactated Ringer's (Lr) 1,000 mls @ 125 mls/hr IVCONT .Q8H [facility] Magnesium Hydroxide (Milk Of Magnesia 30 Ml Oral.Susp) 30 ml PO DAILY PRN PRN Reason: Constipation Melatonin (Melatonin 3 Mg Tablet) 6 mg PO BEDTIME PRN PRN Reason: Insomnia Ondansetron HCl (Ondansetron Hcl 4 Mg/2 Ml Vial) 4 mg IVPUSH Q8H PRN PRN Reason: Nausea and Vomiting Sodium Chloride (0.9 % Sodium Chloride Flush 3 Ml Syringe) 3 ml IVFLUSH QSHIFT [facility] Home Medications ?Medication ?Instructions ?Recorded ?Confirmed ?Last Taken ?Type metoprolol succinate 50 mg 50 mg PO DAILY 04/24/24 04/24/24 04/22/24 History tablet,extended release 24 hr Physical Exam 2 Vital Signs and Narrative: Vital Signs: Last Vital Signs Temp 98.6 F 04/24/24 04:48 Pulse 78 04/24/24 08:56 Resp 17 04/24/24 08:56 BP 139/79 04/24/24 08:56 Pulse Ox 98 04/24/24 08:56 O2 Del Method Room Air 04/24/24 08:56 BMI result Body Mass Index 28.7 Constitutional - Awake but weak appearing, no distress Eyes - PERRLA, EOMI Cardiovascular - S1S2, RRR, No edema Respiratory - Normal lung expansion, Normal respiratory effort, No respiratory distress, CTA bilaterally Gastrointestinal - diffuse abd ttp greatest in the epigastrium without any guarding or rebound. ND; +BS Extremities - no calf tenderness bilaterally, no swelling Skin - Warm/Dry Neurological - Alert & oriented x3 Results Labs 04/25/24 08:00 04/25/24 08:00 Labs: Laboratory Results - last 24 hr 04/24/24 05:15 MCV 76.4 L MCH 25.6 L MCHC 33.5 RDW 16.1 H Plt Count 290 MPV 10.7 Immature Gran % (Auto) 3.1 H Neut % (Auto) 72.8 Lymph % (Auto) 19.1 L Butts % (Auto) 4.3 Eos % (Auto) 0.1 Baso % (Auto) 0.6 Lymph # (Auto) 2.7 Butts # (Auto) 0.6 Eos # (Auto) 0.0 Baso # (Auto) 0.1 Abs Immat Gran (auto) 0.44 H Absolute Neuts (auto) 10.2 H Absolute Nucleated RBC 0.000 Nucleated RBC % (auto) 0.0 Anion Gap 14 Estim Creat Clear Calc 106.8 Estimated GFR > 60 Random Glucose 195 H Calcium 9.0 D Total Bilirubin 0.4 AST 16 ALT 8 Alkaline Phosphatase 61 Total Protein 7.3 Albumin 4.1 Lipase 40 Beta HCG, Quant < 2 Influenza Type A (PCR) NEGATIVE Influenza Type B (PCR) NEGATIVE RSV RNA Qual (PCR) NEGATIVE SARS-CoV-2 RNA (RT-PCR) NEGATIVE Assessment and Plan (1) Cannabinoid hyperemesis syndrome: Status: Acute Plan 38-year-old female with history of cyclic vomiting syndrome who smokes marijuana every few days, last use several days ago admitted for further management of cannabinoid hyperemesis syndrome with p.o. and ovarian # cannabinoid hyperemesis syndrome -in the ED, has received lorazepam, Haldol, ondansetron, Compro, benadryl, and pepcid without effect -IV LR @ 125ml/hour -trial capsaicin cream, reglan if allergy not severe, and benadryl. Adjust pending response -Keep NPO, advance diet as tolerated -Cannabis cessation strongly advised -Will also check EKG to evaluate for any QTc prolongation #GERD -ppi -Acute leukocytosis -likely reactive in the setting of hyperemesis -no sepsis/severe sepsis dvt prophylaxis- SCPs, early ambulation Full code Patient requires inpatient stay of at least 2 midnights due to p.o. intolerance secondary to intractable nausea and vomiting from cannabinoid hyperemesis syndrome which will require ongoing fluid resuscitation, IV antiemetics and diet advancement as symptoms resolve Quality Stroke Does the patient have a stroke diagnosis?: No VTE Prior VTE?: No VTE Risk Level:: Medical - moderate - high VTE Device Contraindication: N/A - Device Ordered VTE Drug Contraindication: Treatment Not Indicated
[2024-04-24] MEDS: Lactated Ringers 1,000 ML 125 ML IVCONT ×2 (10:41→22:30)
[2024-04-24] MEDS: Capsaicin 0.025% Cream 60 GM TUBE 1 APPL TOPICAL (10:43)
[2024-04-24 10:46] LABS: Magnesium 1.8 mg/dL (1.6-2.6)
[2024-04-24] MEDS: Haloperidol Lactate 5 MG/ML VIAL 2.5 MG IM (11:21)
--- NOTE | 2024-04-24 12:07 | PHA.MEDREC ---
Addendum entered by Emily Colón RPh 04/24/24 12:11: Per [facility], metoprolol is the only medication patient said she is taking. Med rec was reviewed by [facility]. Florence Mac was notified of last fill date of metoprolol. Original Note: Pharmacy Consult ? Medication Reconciliation Pharmacy has completed the medication reconciliation. Spoke with patient and she stated she is taking a Metoprolol 50mg tab once a day but was not sure if it was a Succinate or Tartrate tablet. She stated she is filling it at [facility] on [facility] in [place] and last took it 2 days ago. I called [facility] on [address] and they confirmed they have history of them filling Metoprolol Succinate 50mg tabs once a day but stated that has not been filled or picked up since February 11 2023 for 90 days.
[2024-04-24 12:13] LABS: Appearance Urine Clear; Color Urine Yellow; Glucose Urine UA Negative (Negative); Leukocyte Esterase Urine Negative (Negative); Nitrite Urine Negative (Negative); PH >= 9.0 (5.0-9.0); UMIC TRIGGER UACC YES; UPreg QC Valid YES; Urine Blood Large (3+) (Negative); Urine Ketones Negative (Negative); Urine Pregnancy NEGATIVE (NEGATIVE); Urine Protein Negative (Neg-Trace)
[2024-04-24 12:24] LABS: Bacteria Urine None Seen (None Seen); Hyaline Casts Urine 0-2 /LPF (0-2); RBC Urine 0-2 /HPF (0-2); Squamous Epithelial Cell Urine 0-2 /HPF (0-2); WBC Urine 0-5 /HPF (0-5)
[2024-04-24] MEDS: Morphine Sulfate 2 MG/ML CARTRIDGE IVPUSH (14:11)
[2024-04-24] MEDS: droPERidol 5 MG/2 ML VIAL 1.25 MG IVPUSH (14:18)
[2024-04-24] MEDS: 0.9 % Sodium Chloride Flush 3 ML SYRINGE IVFLUSH (15:38)
[2024-04-24] MEDS: OLANZapine 10 MG VIAL 5 MG IM (17:55)
[2024-04-24] MEDS: Acetaminophen 1,000 MG/100 ML PIGGYBACK 400 MG IV (17:55)
[2024-04-24 17:57] VITALS: BP 116/60; PULSE 94; RESP 16; TEMP 37.5; O2SAT 95
--- NOTE | 2024-04-24 17:59 | PC.NURSE ---
sleeping and easily woken and back to sleep, medicated as ordered, skin wpd, abd pain 06/17
[2024-04-24 19:55] VITALS: BP 129/65; PULSE 88; RESP 16; TEMP 36.9; O2SAT 97
--- NOTE | 2024-04-24 19:58 | MHC.EDTECH ---
Pt had one episode of vomitting at this time. PT also found with IV out of arm. Vitals taken. RN made aware.
[2024-04-24 22:14] VITALS: BP 125/79; PULSE 89; RESP 18; TEMP 37.9; O2SAT 98
[2024-04-24] MEDS: Prochlorperazine Edisylate 10 MG/2 ML VIAL IVPUSH (22:26)
--- NOTE | 2024-04-24 22:49 | PC.NURSE ---
patient c/o of nausea and said zofran doesn't work for her. also was very anxious but didn't want to take PO meds d/t her vomiting in the ED. Dr. Weiner notified and ordered IV ativan & compazine
[2024-04-25 00:15] VITALS: TEMP 37.2
[2024-04-25 03:17] VITALS: BP 136/78; PULSE 86; RESP 16; TEMP 36.7; O2SAT 99
[2024-04-25] MEDS: ondansetron HCL 4 MG/2 ML VIAL IVPUSH ×2 (04:06→22:20)
[2024-04-25] MEDS: hydrOXYzine HCL 50 MG/ML VIAL IM (04:38)
[2024-04-25] MEDS: Lactated Ringers 1,000 ML 125 ML IVCONT ×3 (05:34→22:43)
[2024-04-25 06:00] VITALS: BP 117/65; PULSE 86; RESP 16; TEMP 36.1; O2SAT 95
--- NOTE | 2024-04-25 06:08 | PC.NURSE ---
0329- Patient noted out of bed to bathroom, asking for nausea medicine first, alerted patient she had Zofran that I could give her and she stated it does not work for her and requesting Compazine as she had earlier. Note sent to Hospitalist on duty and he responded to not repeating that. Patient informed and not happy, became anxious and wanting to know why if I'm here for help and cannot get what works . Patient then asked for Ativan as she was now with alot of anxiety. She stated it needed to be IVP, as pills make her vomit. Second note sent to Hospitalist for Ativan and order was declined. Charge nurse entered room with me to explain plan of care to patient, she was willing to try the Zofran if that was all there was, but commented her anxiety was through the roof. Hospitalist updated with no positive answer, therefore, note sent by lithopone charger to Hospitalist and order was given for Atarax one dose IM for her anxiety, explained by both this auto service writer and lithopone charger and then administered by charge nurse. Noted patient was able to settle down and shortly afterwards noted to be napping quietly with no further stated nausea. Will continue to monitor.
[2024-04-25 07:41] VITALS: BP 134/84; PULSE 89; RESP 18; TEMP 37.3; O2SAT 98
[2024-04-25 08:20] LABS: MANUAL DIFF FLAG NO
[2024-04-25 08:21] LABS: Basophils Absolute Auto 0.1 X10*3/uL (0.0-0.2); Basophils Percent Auto 0.3 % (0-2); Eosinophils Percent Auto 0.2 % (0-4); Hematocrit 36.9 % (37.0-47.0); Hemoglobin 12.4 g/dl (12.0-16.0); Imm Gran Abs Auto 0.09 X10*3/uL (0.00-0.03); Imm Gran Pct Auto 0.6 % (0.0-0.4); Lymphocytes Absolute Auto 3.1 X10*3/uL (1.2-4.9); Lymphocytes Percent Auto 21.3 % (20-40); Mean Corpuscular HGB Conc 33.6 g/dl (31.0-35.0); Mean Corpuscular Hemoglobin 25.7 pg (27.0-33.0); Mean Corpuscular Volume 76.4 fL (80.0-98.0); Monocytes Absolute Auto 0.8 X10*3/uL (0.1-1.2); Monocytes Percent Auto 5.8 % (2-11); Neutrophils Absolute Auto 10.3 x10*3/uL (2.0-8.3); Neutrophils Percent Auto 71.8 % (45-73); Platelet Count 274 X10*3/uL (160-400); Red Blood Count 4.83 X10*6/uL (4.20-5.50); Red Cell Distribution Width 16.1 % (11.0-16.0); White Blood Count 14.4 X10*3/uL (4.8-10.8)
[2024-04-25 08:44] LABS: Anion Gap 10 (12-20); Blood Urea Nitrogen 7 mg/dL (9-16); Calcium 8.8 mg/dL (8.4-10.2); Carbon Dioxide 25 mmol/L (22-29); Chloride 108 mmol/L (96-108); Creatinine Clr Calc Pharmacy 126.2; Estimated Glomerular Filt Rate > 60; Glucose Random 97 mg/dL (60-115); Potassium 3.4 mmol/L (3.3-5.1); Sodium 140 mmol/L (135-145)
--- NOTE | 2024-04-25 09:00 | HO.PM.IMPN ---
Subjective Subjective Date of Service: 04/25/24 Interval History: f/u on cyclical vomiting still c/o nausea Physical Exam Vital Signs: Vital Signs: Last Vital Signs Temp 99.1 F 04/25/24 07:41 Pulse 89 04/25/24 07:41 Resp 18 04/25/24 07:41 BP 134/84 04/25/24 07:41 Pulse Ox 98 04/25/24 07:41 O2 Del Method Room Air 04/25/24 07:41 BMI result Body Mass Index 28.7 Const: Other: General: AO X 3, no acute distress Resp: CTA bilateral CVS: S1,S2,RRR GI: +BS, NT, no distention Skin: No rash Neuro: motor grossly intact Psych: appropriate affect Objective Data Active Medications Acetaminophen (Acetaminophen 325 Mg Tablet) 650 mg PO Q6H PRN PRN Reason: Pain, Mild 1-3,fever,headache Calcium Carbonate (Calcium Carbonate 750 Mg Tab.Chew) 750 mg PO Q4H PRN PRN Reason: Heartburn Capsaicin (Capsaicin 0.025% Cream 60 Gm Tube) 1 appl TOPICAL QID PRN; Protocol PRN Reason: n/v, epigastric pain Last Admin: 04/24/24 10:43 Dose: 1 appl Documented By: GODWIN Lactated Ringer's (Lr) 1,000 mls @ 125 mls/hr IVCONT .Q8H KANDY Last Admin: 04/25/24 05:34 Dose: 125 mls/hr Documented By: LASHA Magnesium Hydroxide (Milk Of Magnesia 30 Ml Oral.Susp) 30 ml PO DAILY PRN PRN Reason: Constipation Melatonin (Melatonin 3 Mg Tablet) 6 mg PO BEDTIME PRN PRN Reason: Insomnia Metoprolol Succinate (Metoprolol Succinate Er 50 Mg Tab.Er.24h) 50 mg PO DAILY KANDY; Protocol Last Admin: 04/25/24 07:42 Dose: Not Given Documented By: ROBERT Non-Admin Reason: Patient Refused Ondansetron HCl (Ondansetron Hcl 4 Mg/2 Ml Vial) 4 mg IVPUSH Q8H PRN PRN Reason: Nausea and Vomiting Last Admin: 04/25/24 04:06 Dose: 4 mg Documented By: LASHA Sodium Chloride (0.9 % Sodium Chloride Flush 3 Ml Syringe) 3 ml IVFLUSH QSHIFT KANDY Last Admin: 04/25/24 07:14 Dose: Not Given Documented By: ROBERT Non-Admin Reason: IV Running Labs 04/25/24 08:00 04/25/24 08:00 Labs: Laboratory Results - last 24 hr 04/24/24 04/24/24 04/25/24 05:15 12:03 08:00 MCV 76.4 L MCH 25.7 L MCHC 33.6 RDW 16.1 H Plt Count 274 MPV 11.0 Immature Gran % (Auto) 0.6 H Neut % (Auto) 71.8 Lymph % (Auto) 21.3 Trigg % (Auto) 5.8 Eos % (Auto) 0.2 Baso % (Auto) 0.3 Lymph # (Auto) 3.1 Trigg # (Auto) 0.8 Eos # (Auto) 0.0 Baso # (Auto) 0.1 Abs Immat Gran (auto) 0.09 H Absolute Neuts (auto) 10.3 H Absolute Nucleated RBC 0.000 Nucleated RBC % (auto) 0.0 Anion Gap 10 L Estim Creat Clear Calc 126.2 Estimated GFR > 60 Random Glucose 97 Calcium 8.8 Magnesium 1.8 Urine Color Yellow Urine Appearance Clear Urine pH >= 9.0 Ur Specific [place] 1.010 Urine Protein Negative Urine Glucose (UA) Negative Urine Ketones Negative Urine Blood Large (3+) H Urine Nitrite Negative Ur Leukocyte Esterase Negative Urine RBC 0-2 Urine WBC 0-5 Ur Squamous Epith Cells 0-2 Urine Bacteria None Seen Hyaline Casts 0-2 Urine Test NEGATIVE Assessment and Plan (1) Anxiety: Status: Acute (2) Cannabinoid hyperemesis syndrome: Status: Acute Plan 38-year-old female with history of cyclic vomiting syndrome who smokes marijuana every few days, last use several days ago admitted for further management of cannabinoid hyperemesis syndrome with nasusea and vomiting and PO intolerance Cannabinoid hyperemesis syndrome hydrate,antiemetic, capasacin and advance diet GERD -ppi -Acute leukocytosis -likely reactive in the setting of hyperemesis -no sepsis/severe sepsis dvt prophylaxis- SCPs, early ambulation Full code Patient requires inpatient stay of at least 2 midnights due to p.o. intolerance secondary to intractable nausea and vomiting from cannabinoid hyperemesis syndrome which will require ongoing fluid resuscitation, IV antiemetics and diet advancement as symptoms resolve Quality Stroke Does the patient have a stroke diagnosis?: No VTE Prior VTE?: No VTE Risk Level:: Medical - moderate - high VTE Device Contraindication: N/A - Device Ordered VTE Drug Contraindication: Treatment Not Indicated
[2024-04-25] MEDS: Prochlorperazine Edisylate 10 MG/2 ML VIAL 5 MG IVPUSH ×2 (11:05→17:16)
--- NOTE | 2024-04-25 12:12 | MHC.CM.PN ---
DX Cyclic vomiting Patient lives with spouse. She is independent with all functional mobility. She is not tolerating PO intake. She is not medically cleared to discharge today.DP home self care. Patient will transport privately @ [facility].
[2024-04-25 14:00] VITALS: BP 120/68; PULSE 66; RESP 18; TEMP 36.6; O2SAT 97
[2024-04-25] MEDS: hydrOXYzine HCL 25 MG TABLET PO (14:32)
[2024-04-25 19:26] VITALS: BP 144/81; PULSE 62; RESP 18; TEMP 37.3; O2SAT 98
[2024-04-26] MEDS: Melatonin 3 MG TABLET 6 MG PO ×2 (00:38→23:05)
[2024-04-26] MEDS: hydrOXYzine HCL 25 MG TABLET PO (02:13)
[2024-04-26 03:50] VITALS: BP 126/76; PULSE 66; RESP 18; TEMP 37.2; O2SAT 97
[2024-04-26] MEDS: Prochlorperazine Edisylate 10 MG/2 ML VIAL 5 MG IVPUSH ×3 (07:47→19:18)
--- NOTE | 2024-04-26 09:33 | PM.DS ---
DS: Providers Provider Date of Service: 04/26/24 Date of admission: 04/24/24 10:50 Date of discharge: 04/26/24 Primary care physician: Jazmin Singh NP DS: Diagnosis Discharge Diagnosis (1) Anxiety: Status: Acute (2) Cannabinoid hyperemesis syndrome: Status: Acute DS: Summary Hospital Course Hospital Course: admission hpi Chief Complaint: Intractable nausea and vomiting 38-year-old female with history of cyclic vomiting syndrome who smokes marijuana every few days, last use several days ago, presents to the ED early this morning for evaluation of intractable nausea and vomiting. She states since last night, she has not been able to eat or drink due to persistent nausea and vomiting. She has vomited over 10 times but denies any hematemesis. She is reporting diffuse abdominal pain as well as chills and weakness. No fevers, rigors, diarrhea, cough, shortness breath, chest pain. She has had similar symptoms in the past. Advised to avoid cannibis but has not. Since arrival, she has been tachycardic and intermittently tachypneic but no fevers and blood pressures are stable. She has a leukocytosis of 14.0. Renal function and electrolyte levels are normal. HCG is negative. Negative for COVID-19, RSV, influenza. In the ED, she has received lorazepam, Haldol, famotidine, Compro, Benadryl, ondansetron as well as 2 L IV fluid. Despite this, patient remains intolerant of p.o. and continues vomiting. She has had several admissions in the past for the same, most recently 10/2023. hospital course: The patient presented with nausea and vomiting attributed to cyclical vomiting syndrome from cannabis use. Her management consisted of intravenous fluid hydration, antiemetics, and a slowly advanced diet. Overall, her symptoms have improved, and she will be discharged with caution to avoid cannabis and to maintain adequate hydration. She will be discharged with a prescription for ondansetron (Zofran) for nausea and vomiting.: GERD -ppi Acute leukocytosis -likely reactive in the setting of hyperemesis -no sepsis/severe sepsis Time Attestation Discharge Coordination Time (in mins): 35 Quality: Safe Use of Opioids Does Pt have an Active Cancer Diagnosis on the Problem List?: No Quality: Stroke Does the patient have a stroke diagnosis?: No Physical Exam Vital Signs: Vital Signs: Last Vital Signs Temp 98.9 F 04/26/24 03:50 Pulse 66 04/26/24 03:50 Resp 18 04/26/24 03:50 BP 126/76 04/26/24 03:50 Pulse Ox 97 04/26/24 03:50 O2 Del Method Room Air 04/26/24 03:50 BMI result Body Mass Index 28.7 Discharge Plan Discharge Anticipated Discharge Date/Time: 04/26/24 09:49 Patient Disposition: Home, Self-Care Discharge Diagnosis: Cyclical vomting syndrome Referrals: Jazmin Singh, RING CUTTER LATHE OPERATOR [Primary Care Provider] - 1 Week Discharge Medications: New ondansetron 4 mg tablet,disintegrating 4 mg PO Q8H Qty: 15 0RF Continued metoprolol succinate 50 mg Tablet Extended Release 24 Hr 50 mg PO DAILY Discharge Orders: Discharge Order (Routine); Ordered 04/26/24 Ordered By: Donato Doshi Diet: Advance to usual diet Activity on Discharge: As tolerated Stand Alone Forms: Patient Portal Discharge page Print Language: Maldivian Care Plan Goals: recovery from cyclical vomitng syndrome Health Concerns: cyclical vomiting from canabis use Plan of Treatment: avoid canabis stay well hydrated, drink plenty of fluid, take Zofran as needed for nausea and vomitig Assessment: see above
--- NOTE | 2024-04-26 09:57 | MHC.CM.PN ---
Patient is discharged to home self care. She has arranged for transportation home.
[2024-04-26 10:40] LABS: Hematocrit 37.6 % (37.0-47.0); Hemoglobin 12.3 g/dl (12.0-16.0); Mean Corpuscular HGB Conc 32.7 g/dl (31.0-35.0); Mean Corpuscular Hemoglobin 25.1 pg (27.0-33.0); Mean Corpuscular Volume 76.7 fL (80.0-98.0); Mean Platelet Volume 11.2 fL (9.4-12.3); Platelet Count 272 X10*3/uL (160-400); Red Cell Distribution Width 15.8 % (11.0-16.0)
--- NOTE | 2024-04-26 13:31 | P.PNIM_ITS ---
Subjective Subjective Date of Service: 04/26/24 Interval History: f/u on cyclical vomiting still c/o nausea Physical Exam 2 Vital Signs: Vital Signs: Last Vital Signs Temp 98.9 F 04/26/24 03:50 Pulse 66 04/26/24 03:50 Resp 18 04/26/24 03:50 BP 126/76 04/26/24 03:50 Pulse Ox 97 04/26/24 03:50 O2 Del Method Room Air 04/26/24 03:50 BMI result Body Mass Index 28.7 Const: Other: General: AO X 3, no acute distress Resp: CTA bilateral CVS: S1,S2,RRR GI: +BS, NT, no distention Skin: No rash Neuro: motor grossly intact Psych: appropriate affect Objective Data Active Medications Acetaminophen (Acetaminophen 325 Mg Tablet) 650 mg PO Q6H PRN PRN Reason: Pain, Mild 1-3,fever,headache Calcium Carbonate (Calcium Carbonate 750 Mg Tab.Chew) 750 mg PO Q4H PRN PRN Reason: Heartburn Capsaicin (Capsaicin 0.025% Cream 60 Gm Tube) 1 appl TOPICAL QID PRN; Protocol PRN Reason: n/v, epigastric pain Last Admin: 04/24/24 10:43 Dose: 1 appl Documented By: GODWIN Hydroxyzine HCl (Hydroxyzine Hcl 25 Mg Tablet) 25 mg PO Q6H PRN PRN Reason: anxiety Last Admin: 04/26/24 02:13 Dose: 25 mg Documented By: LASHA Magnesium Hydroxide (Milk Of Magnesia 30 Ml Oral.Susp) 30 ml PO DAILY PRN PRN Reason: Constipation Melatonin (Melatonin 3 Mg Tablet) 6 mg PO BEDTIME PRN PRN Reason: Insomnia Last Admin: 04/26/24 00:38 Dose: 6 mg Documented By: LASHA Metoprolol Succinate (Metoprolol Succinate Er 50 Mg Tab.Er.24h) 50 mg PO DAILY [facility]; Protocol Last Admin: 04/26/24 07:47 Dose: Not Given Documented By: ROBERT Non-Admin Reason: Patient Refused Ondansetron HCl (Ondansetron Hcl 4 Mg/2 Ml Vial) 4 mg IVPUSH Q8H PRN PRN Reason: Nausea and Vomiting Last Admin: 04/25/24 22:20 Dose: 4 mg Documented By: HO.SEXK Prochlorperazine Edisylate (Prochlorperazine Edisylate 10 Mg/2 Ml Vial) 5 mg IVPUSH Q6H PRN PRN Reason: Nausea and Vomiting Last Admin: 04/26/24 12:53 Dose: 5 mg Documented By: ROBERT Sodium Chloride (0.9 % Sodium Chloride Flush 3 Ml Syringe) 3 ml IVFLUSH QSHIFT [facility] Last Admin: 04/26/24 07:34 Dose: Not Given Documented By: ROBERT Non-Admin Reason: IV Running Labs 04/26/24 10:02 04/25/24 08:00 Labs: Laboratory Results - last 24 hr 04/26/24 10:02 MCV 76.7 L MCH 25.1 L MCHC 32.7 RDW 15.8 Plt Count 272 MPV 11.2 Absolute Nucleated RBC 0.000 Nucleated RBC % (auto) 0.0 Assessment and Plan (1) Anxiety: Status: Acute (2) Cannabinoid hyperemesis syndrome: Status: Acute Plan 38-year-old female with history of cyclic vomiting syndrome who smokes marijuana every few days, last use several days ago admitted for further management of cannabinoid hyperemesis syndrome with nasusea and vomiting and PO intolerance Cannabinoid hyperemesis syndrome, she is still having nausea and vomitting continue IVF, antiemetics, get a CT of abdomen/pelvis GERD -ppi -Acute leukocytosis -likely reactive in the setting of hyperemesis -no sepsis/severe sepsis, ct as above dvt prophylaxis- SCPs, early ambulation Full code Patient requires inpatient stay of at least 2 midnights due to p.o. intolerance secondary to intractable nausea and vomiting from cannabinoid hyperemesis syndrome which will require ongoing fluid resuscitation, IV antiemetics and diet advancement as symptoms resolve Quality Stroke Does the patient have a stroke diagnosis?: No VTE Prior VTE?: No VTE Risk Level:: Medical - moderate - high VTE Device Contraindication: N/A - Device Ordered VTE Drug Contraindication: Treatment Not Indicated
[2024-04-26 14:00] VITALS: BP 127/71; PULSE 71; RESP 16; TEMP 37.4; O2SAT 100
[2024-04-26] MEDS: Dextrose 5 % and Lactated Ring 1,000 ML 100 ML IVCONT ×2 (14:10→23:46)
[2024-04-26] MEDS: ondansetron HCL 4 MG/2 ML VIAL IVPUSH ×2 (14:22→23:43)
[2024-04-26] MEDS: diphenhydrAMINE HCL 50 MG/ML VIAL 25 MG IVPUSH ×2 (16:10→22:03)
[2024-04-26 19:13] VITALS: BP 140/80; PULSE 61; RESP 18; TEMP 37.8; O2SAT 100
[2024-04-27] MEDS: Calcium Carbonate 750 MG TAB.CHEW PO ×2 (00:27→06:12)
[2024-04-27] MEDS: Prochlorperazine Edisylate 10 MG/2 ML VIAL 5 MG IVPUSH (01:20)
[2024-04-27 03:28] VITALS: BP 133/73; PULSE 65; RESP 18; TEMP 36.9; O2SAT 99
[2024-04-27] MEDS: diphenhydrAMINE HCL 50 MG/ML VIAL 25 MG IVPUSH (03:56)
[2024-04-27 06:58] LABS: Hematocrit 39.7 % (37.0-47.0); Hemoglobin 13.4 g/dl (12.0-16.0); Mean Corpuscular HGB Conc 33.8 g/dl (31.0-35.0); Mean Corpuscular Hemoglobin 25.4 pg (27.0-33.0); Mean Corpuscular Volume 75.3 fL (80.0-98.0); Mean Platelet Volume 11.3 fL (9.4-12.3); Platelet Count 287 X10*3/uL (160-400); Red Blood Count 5.27 X10*6/uL (4.20-5.50); Red Cell Distribution Width 15.5 % (11.0-16.0)
[2024-04-27 07:09] LABS: Blood Urea Nitrogen 7 mg/dL (9-16); Calcium 9.4 mg/dL (8.4-10.2); Creatinine Clr Calc Pharmacy 117.3; Estimated Glomerular Filt Rate > 60; Glucose Random 125 mg/dL (60-115)
[2024-04-27 07:16] VITALS: BP 136/81; PULSE 83; RESP 16; TEMP 36.3; O2SAT 96
[2024-04-27 07:23] LABS: Anion Gap 15 (12-20); Carbon Dioxide 27 mmol/L (22-29); Chloride 99 mmol/L (96-108); Potassium 2.8 mmol/L (3.3-5.1); Sodium 138 mmol/L (135-145)
[2024-04-27] MEDS: Metoprolol Succinate ER 50 MG TAB.ER.24H PO (07:53)
--- NOTE | 2024-04-27 08:08 | PC.NURSE ---
0805- patient signed AMA paperwork. Patient declined to see a provider before discharge. Patient refused PO and IV potassium replacement therapy. Provided with education printout of potassium rich foods. EMMA Meek made aware. Patient is alert and oriented x4. IV's removed. Patient left unaccompanied. Ambulated with steady gait. Denied pain.
[2024-04-27 08:13] LABS: Magnesium 2.1 mg/dL (1.6-2.6)
--- NOTE | 2024-04-27 08:24 | P.DS_ITS ---
DS: Providers Provider Date of Service: 04/27/24 Date of admission: 04/24/24 10:50 Date of discharge: 04/27/24 Primary care physician: Jazmin Singh NP Attending physician on discharge: Jelani Balderas Discharging clinician: Marcelle Meek DS: Diagnosis Discharge Diagnosis (1) Anxiety: Status: Acute (2) Cannabinoid hyperemesis syndrome: Status: Acute DS: Summary Hospital Course Hospital Course: admission hpi Chief Complaint: Intractable nausea and vomiting 38-year-old female with history of cyclic vomiting syndrome who smokes marijuana every few days, last use several days ago, presents to the ED early this morning for evaluation of intractable nausea and vomiting. She states since last night, she has not been able to eat or drink due to persistent nausea and vomiting. She has vomited over 10 times but denies any hematemesis. She is reporting diffuse abdominal pain as well as chills and weakness. No fevers, rigors, diarrhea, cough, shortness breath, chest pain. She has had similar symptoms in the past. Advised to avoid cannibis but has not. Since arrival, she has been tachycardic and intermittently tachypneic but no fevers and blood pressures are stable. She has a leukocytosis of 14.0. Renal function and electrolyte levels are normal. HCG is negative. Negative for COVID-19, RSV, influenza. In the ED, she has received lorazepam, Haldol, famotidine, Compro, Benadryl, ondansetron as well as 2 L IV fluid. Despite this, patient remains intolerant of p.o. and continues vomiting. She has had several admissions in the past for the same, most recently 10/2023. hospital course: The patient presented with nausea and vomiting attributed to cyclical vomiting syndrome from cannabis use. Her management consisted of intravenous fluid hydration, antiemetics, and a slowly advanced diet. Overall, her symptoms have improved, and she was recommended to avoid cannabis and to maintain adequate hydration her discharge was initially planned April 26 however patient declined to go home. On the morning of April 27 her lab work was significant for low potassium, oral potassium replacement was ordered. Per the nurse patient declined oral potassium replacement either by pill or by liquid. When IV supplementation was offered she subsequently declined that as well. She elected to leave the hospital against medical advice prior to replacing her potassium levels. She did not wait for this provider to see her or evaluate her. Per her nurse she was awake, alert and oriented at the time of her departure. CT scan of the abdomen and pelvis official report also pending at the time of departure. Acute leukocytosis. likely reactive in the setting of hyperemesis. no sepsis/severe sepsis Time Attestation Discharge Coordination Time (in mins): 30 Quality: Safe Use of Opioids Does Pt have an Active Cancer Diagnosis on the Problem List?: No Quality: Stroke Does the patient have a stroke diagnosis?: No Physical Exam Vital Signs: Vital Signs: Last Vital Signs Temp 97.3 F 04/27/24 07:16 Pulse 83 04/27/24 07:16 Resp 16 04/27/24 07:16 BP 136/81 04/27/24 07:16 Pulse Ox 96 04/27/24 07:16 O2 Del Method Room Air 04/27/24 07:16 BMI result Body Mass Index 28.7 DS: Data Data Completed and Pending Labs on day of discharge: Laboratory Results - last 24 hr 04/26/24 04/27/24 10:02 05:47 WBC 16.0 H 15.0 H RBC 4.90 5.27 Hgb 12.3 13.4 Hct 37.6 39.7 MCV 76.7 L 75.3 L MCH 25.1 L 25.4 L MCHC 32.7 33.8 RDW 15.8 15.5 Plt Count 272 287 MPV 11.2 11.3 Absolute Nucleated RBC 0.000 0.000 Nucleated RBC % (auto) 0.0 0.0 Sodium 138 Potassium 2.8 L* Chloride 99 Carbon Dioxide 27 Anion Gap 15 BUN 7 L Creatinine 0.71 Estim Creat Clear Calc 117.3 Estimated GFR > 60 Random Glucose 125 H Calcium 9.4 D Magnesium 2.1 Discharge Plan Discharge Anticipated Discharge Date/Time: 04/26/24 09:49 Patient Disposition: Left Against Medical Advice Discharge Diagnosis: Cyclical vomting syndrome Referrals: Jazmin Singh MACHINE FILLER SERVICER [Primary Care Provider] - 1 Week Discharge Medications: New ondansetron 4 mg tablet,disintegrating 4 mg PO Q8H Qty: 15 0RF Continued metoprolol succinate 50 mg Tablet Extended Release 24 Hr 50 mg PO DAILY Discharge Orders: Discharge Order (Routine); Ordered 04/26/24 Ordered By: Donato Doshi Diet: Advance to usual diet Activity on Discharge: As tolerated Print Language: Turkmen Care Plan Goals: recovery from cyclical vomitng syndrome Health Concerns: cyclical vomiting from canabis use low potassium Plan of Treatment: avoid canabis stay well hydrated, drink plenty of fluid, take Zofran as needed for nausea and vomitig Assessment: You have elected to leave the hospital against medical advice. Your potassium levels were low at the time of your departure. It was recommended for you to stay for oral or IV potassium replacement, you have elected to forego potassium replacement and leave against medical advice. Recommend outpatient follow-up with your primary care provider. CT scan of abdomen/pelvis official report pending at the time of departure Patient Instructions: Potassium Content of Foods List (GEN) Discharge Date/Time: 04/27/24 08:05
--- NOTE | 2024-04-27 08:33 | MHC.CM.PN ---
Patient was scheduled to discharge yesterday. She left AMA this AM
--- NOTE | 2024-04-27 08:44 | PC.NURSE ---
Pt called and notified she left belongings at the nurses station, will come later tomorrow to waste picker
== END 2024-04-27 08:05 | disposition left against medical advice (07) | DRG 249 ==
LOC: HO.ED 09:44 → HO.EDOVER 10:51 → HO.S3 19:11
PROVIDERS: Internal Medicine; Physician Assistant Medical; Admitting Provider Physician Assistant; Emergency Provider Emergency Medicine Emergency Medical Services; PCP Nurse Practitioner Family; Visit Provider Physician Assistant Medical
DX: R11.2 Nausea with vomiting, unspecified (principal); F12.90 Cannabis use, unspecified, uncomplicated; F41.9 Anxiety disorder, unspecified; K21.9 Gastro-esophageal reflux disease without esophagitis; Z20.822 Contact with and (suspected) exposure to COVID-19; Z79.899 Other long term (current) drug therapy
CPT/HCPCS: 0241U; 36415; 74176; 80048; 80053; 81001; 81025; 83690; 83735; 84484; 84702; 85025; 85027; 93005; 99285; J0131; J0737; J1200; J1630; J1790; J2060; J2270; J2359; J2405; J3410; J7120

== ENCOUNTER 2024-04-24 10:50 | Outpatient (BNV) | payer OTHER, SELFPAY | END 2024-04-24 11:00 | PROVIDERS: Admitting Provider Physician Assistant; Emergency Provider Emergency Medicine Emergency Medical Services; PCP Nurse Practitioner Family; Visit Provider Internal Medicine Cardiovascular Disease | DX: Z13.6 Encounter for screening for cardiovascular disorders (principal) | CPT/HCPCS: 93010 ==

== ENCOUNTER 2024-04-24 10:50 | Outpatient (BNV) | payer OTHER, SELFPAY | END 2024-04-26 16:50 | PROVIDERS: Admitting Provider Physician Assistant; Emergency Provider Emergency Medicine Emergency Medical Services; PCP Nurse Practitioner Family; Visit Provider Radiology Diagnostic Radiology | DX: R11.2 Nausea with vomiting, unspecified (principal) | CPT/HCPCS: 74176 ==

== ENCOUNTER → 2024-04-24 10:50 | Outpatient (BNV) | payer OTHER, SELFPAY | PROVIDERS: Admitting Provider Physician Assistant; Emergency Provider Emergency Medicine Emergency Medical Services; PCP Nurse Practitioner Family; Visit Provider Physician Assistant | DX: R11.2 Nausea with vomiting, unspecified (principal); F41.9 Anxiety disorder, unspecified; F12.90 Cannabis use, unspecified, uncomplicated | CPT/HCPCS: 99223; 99232 ==

== ENCOUNTER 2024-04-28 02:35 | Inpatient (IN) | payer OTHER, SELFPAY ==
[2024-04-28] VITALS (7 sets, daily range): BP systolic 102–149; BP diastolic 59–91; PULSE 65–87; RESP 16–20; TEMP 36.4–36.8; O2SAT 97–99; BMI 28.9
--- NOTE | 2024-04-28 | ECG_ITS ---
Test Reason : palpitations Blood Pressure : */* mmHG Vent. Rate : 70 BPM Atrial Rate : 70 BPM P-R Int : 132 ms QRS Dur : 84 ms QT Int : 410 ms P-R-T Axes : 35 3 52 degrees QTcB Int : 442 ms Normal sinus rhythm with sinus arrhythmia Normal ECG When compared with ECG of 24-Apr-2024 11:00, No significant change was found Referred By: Generic ED Physician Electronically Signed By: Osmani Quesada
[2024-04-28 02:56] LABS: Basophils Absolute Auto 0.1 X10*3/uL (0.0-0.2); Basophils Percent Auto 0.4 % (0-2); Eosinophils Absolute Auto 0.1 X10*3/uL (0.0-0.4); Eosinophils Percent Auto 0.5 % (0-4); Hematocrit 41.4 % (37.0-47.0); Hemoglobin 14.5 g/dl (12.0-16.0); Imm Gran Abs Auto 0.07 X10*3/uL (0.00-0.03); Imm Gran Pct Auto 0.4 % (0.0-0.4); Lymphocytes Absolute Auto 3.4 X10*3/uL (1.2-4.9); Lymphocytes Percent Auto 20.7 % (20-40); MANUAL DIFF FLAG SCAN; Mean Corpuscular Hemoglobin 25.9 pg (27.0-33.0); Mean Corpuscular Volume 74.1 fL (80.0-98.0); Mean Platelet Volume 10.7 fL (9.4-12.3); Monocytes Absolute Auto 1.7 X10*3/uL (0.1-1.2); Monocytes Percent Auto 10.3 % (2-11); Neutrophils Absolute Auto 11.1 x10*3/uL (2.0-8.3); Neutrophils Percent Auto 67.7 % (45-73); Platelet Count 318 X10*3/uL (160-400); Red Blood Count 5.59 X10*6/uL (4.20-5.50); Red Cell Distribution Width 15.6 % (11.0-16.0); SCAN SMEAR FLAG 1; White Blood Count 16.4 X10*3/uL (4.8-10.8)
--- NOTE | 2024-04-28 03:02 | ED.NAVMDI ---
HPI - Nausea/Vomiting/Diarrhea General Chief complaint: Nausea/Vomiting/Diarrhea Stated complaint: vomiting Time Seen by Provider: 04/28/24 02:56 Source: patient Mode of arrival: ambulatory Limitations: no limitations History of Present Illness ED Provider: DR. Burkett HPI Narrative: 38-year-old female with history of cyclic vomiting syndrome who smokes marijuana every few days last use was several days ago patient returned to the emergency department after was discharged from the hospital (patient has signed AMA) returned today for increased abdominal pain, feeling palpitation, and intractable vomiting and nausea, had a normal bowel movement, during her last hospitalization patient had hypokalemia that was repleted in the hospital. Had CT of the abdomen and pelvis on 04/26 resulted as no acute intra-abdominal pathology. Related Data Home Medications ?Medication ?Instructions ?Recorded ?Confirmed metoprolol succinate 50 mg 50 mg PO DAILY 04/24/24 04/24/24 tablet,extended release 24 hr Allergies Allergy/AdvReac Type Severity Reaction Status Date / Time hydromorphone [Dilaudid] Allergy Unknown hives Verified 04/28/24 02:39 metoclopramide [From Reglan] Allergy Unknown Verified 04/28/24 02:39 ibuprofen [From MOTRIN] AdvReac Mild STOMACH Verified 04/28/24 02:39 UPSET Review of Systems Review of Systems: All other systems are reviewed and are negative Constitutional: Reports as per HPI and Reports no additional constitutional complaints Eyes: Reports as per HPI and Reports no additional eye complaints Reports system reviewed and no additional complaints, except as documented Cardiovascular: Reports as per HPI and Reports no additional cardiovascular complaints Respiratory: Reports as per HPI and Reports no additional respiratory complaints Gastrointestinal: Reports as per HPI and Reports no additional gastrointestinal complaints Genitourinary: Reports no additional female genitourinary complaints Musculoskeletal: Reports no additional musculoskeletal complaints Skin/Breast: Reports system reviewed and no additional complaints, except as docu Psychiatric: Reports no additional psychiatric complaints Endocrine: Reports no additional endocrine complaints Hematologic/Lymphatic: Reports no additional hematologic/lymphatic complaints Allergic/Immunologic: Reports no additional allergic/immunologic complaints Reports system reviewed and no additional complaints, except as documented and Reports Abnormal speech present PMFSH Past Medical History Medical History Shortness of breath Sinus tachycardia Cyclical vomiting Anxiety Ureteric calculus Family History Family History Father Heart disease Other Hypokalemia Social History Social History Household Members: Family Housing: House Do you presently have visiting nurse or other home services: No Alcohol intake: never Patient Tobacco Use Status: Current everyday Tobacco user Substance Use Type: Marijuana Advance Directives: No Do you have a plan to hurt others: No Plan service: No Physical Exam Vital Signs: Vital Signs: Last Vital Signs Temp 98.1 F 04/28/24 03:22 Pulse 65 04/28/24 03:22 Resp 16 04/28/24 03:22 BP 137/69 04/28/24 03:22 Pulse Ox 99 04/28/24 03:22 O2 Del Method Room Air 04/28/24 03:22 BMI result Body Mass Index 28.9 Vital signs have been reviewed and appear to be correct. Blood pressure elevated. Heart rate normal. Respiratory rate normal. Temperature normal. Oxygen saturation normal. Appearance: Anxious, Alert. Oriented X3. acute distress secondary to abdominal pain. Head: Normal external exam. Normocephalic. Atraumatic. No Patrick signs noted. No raccoon eyes noted Eyes: PERRLA. EOMI. Conjunctiva and sclera normal. Eyelids normal. ENT: TM's Normal. Pharynx normal. Uvula midline. Moist mucous membranes. No trismus noted. No drooling noted. No muffled voice noted. Neck: Normal inspection. Neck supple. FROM. No adenopathy. Thyroid Normal. No meningeal signs. No neck mass noted. CVS: Normal heart rate and rhythm. Heart sound normal. No murmurs noted. Pulses normal throughout. Respiratory: No respiratory distress. Painless inspiration. Breath sounds normal. No wheezes/rales/rhonchi noted. Chest nontender. No accessory muscle usage noted or decreased air movement noted. Abdomen: Soft and nontender. Bowel sounds normal in all 4 quadrants. No distention noted. No organomegaly noted. No visible injury noted. Back: No CVA tenderness. Full range of motion noted. Skin: Skin warm and dry. Normal skin color. Normal skin turgor. No rashes/lesions/lacerations noted. Extremities: No lower extremity edema. Extremities exhibit normal range of motion. Extremities nontender. Neuro: Oriented X 3. Cranial nerve exam: II-XII are grossly intact No motor deficit. No sensory deficit. Reflexes normal. Course Reevaluation(s) Reevaluation #1: 38-year-old female history of use disorder recently admitted for intractable vomiting patient has signed AMA, had unremarkable CT, returned for persistent of symptoms. Hypokalemia of 2.7 repleted by oral and IV potassium in the ED. Patient feels slightly better less nauseous and more relaxed with Ativan. Time: 03:56 Medications Administered Discontinued Medications Generic Name Dose Route Start Last Admin Trade Name Freq PRN Reason Stop Dose Admin Famotidine 20 mg 04/28/24 03:09 04/28/24 03:13 Famotidine/Pf 20 Mg/2 Ml Vial IVPUSH 04/28/24 03:10 20 mg ONCE ONE Administration Acetaminophen 1,000 mg in 100 mls @ 400 mls/hr 04/28/24 03:07 04/28/24 03:16 Ofirmev IV 04/28/24 03:21 400 mls/hr ONCE ONE Administration Lorazepam 2 mg 04/28/24 03:07 04/28/24 03:15 Lorazepam 2 Mg/Ml Vial IVPUSH 04/28/24 03:08 2 mg ONCE ONE Administration Morphine Sulfate 2 mg 04/28/24 03:13 04/28/24 03:16 Morphine Sulfate 2 Mg/Ml Cartridge IVPUSH 04/28/24 03:14 2 mg ONCE ONE Administration Protocol Ondansetron HCl 4 mg 04/28/24 03:09 04/28/24 03:13 Ondansetron Hcl 4 Mg/2 Ml Vial IVPUSH 04/28/24 03:10 4 mg ONCE ONE Administration Medical Decision Making Differential Diagnosis Differential Diagnoses: The differential diagnosis associated with the presentation includes (Marijuana induced emesis, electrolyte derangement, RADHAMES, dehydration, dysrhythmia,) Admission/Observation Consideration of admission/observation: Escalation of care including admission/observation considered Lab Data MDM Lab Attestation statement: I reviewed the patient's lab results. 04/28/24 02:51 04/28/24 02:51 Labs: Lab Results 04/28/24 Range/Units 02:51 WBC 16.4 H (4.8-10.8) X10*3/uL RBC 5.59 H (4.20-5.50) X10*6/uL Hgb 14.5 (12.0-16.0) g/dl Hct 41.4 (37.0-47.0) % MCV 74.1 L (80.0-98.0) fL MCH 25.9 L (27.0-33.0) pg MCHC 35.0 (31.0-35.0) g/dl RDW 15.6 (11.0-16.0) % Plt Count 318 (160-400) X10*3/uL MPV 10.7 (9.4-12.3) fL Immature Gran % (Auto) 0.4 (0.0-0.4) % Neut % (Auto) 67.7 (45-73) % Lymph % (Auto) 20.7 (20-40) % [place] % (Auto) 10.3 (2-11) % Eos % (Auto) 0.5 (0-4) % Baso % (Auto) 0.4 (0-2) % Lymph # (Auto) 3.4 (1.2-4.9) X10*3/uL [place] # (Auto) 1.7 H (0.1-1.2) X10*3/uL Eos # (Auto) 0.1 (0.0-0.4) X10*3/uL Baso # (Auto) 0.1 (0.0-0.2) X10*3/uL Abs Immat Gran (auto) 0.07 H (0.00-0.03) X10*3/uL Absolute Neuts (auto) 11.1 H (2.0-8.3) x10*3/uL Absolute Nucleated RBC 0.000 (0.0-0.012) X10*3/uL Nucleated RBC % (auto) 0.0 (0.0-0.2) /100WBC Smear Tech's Comments VERIFIED Sodium 140 (135-145) mmol/L Potassium 2.7 L* (3.3-5.1) mmol/L Chloride 98 (96-108) mmol/L Carbon Dioxide 27 (22-29) mmol/L Anion Gap 18 (12-20) BUN 12 (9-16) mg/dL Creatinine 0.92 (0.5-1.4) mg/dL Estim Creat Clear Calc 90.8 Estimated GFR > 60 Random Glucose 132 H (60-115) mg/dL Calcium 9.8 (8.4-10.2) mg/dL Total Bilirubin 1.2 H (0.0-1.0) mg/dL AST 15 (5-31) U/L ALT 9 (0-31) U/L Alkaline Phosphatase 65 (39-117) U/L Total Protein 7.9 (6.5-8.0) g/dL Albumin 4.4 (3.5-5.0) g/dL Lipase 9 (8-78) U/L Independent Interpretation I performed an independent interpretation of an: CT Scan (Abdomen pelvis on 04/26: No acute pathology.) Radiology Impression Discussion of test interpretation with radiology: I have reviewed the radiologist's reading. Discharge Plan Discharge Clinical Impression: Hypokalemia due to excessive gastrointestinal loss of potassium, Cannabinoid hyperemesis syndrome Patient Disposition: Admitted As Inpatient Prescriptions: No Action metoprolol succinate 50 mg Tablet Extended Release 24 Hr 50 mg PO DAILY Print Language: Romanian
[2024-04-28] MEDS: Famotidine/PF 20 MG/2 ML VIAL IVPUSH (03:13)
[2024-04-28] MEDS: ondansetron HCL 4 MG/2 ML VIAL IVPUSH (03:13)
[2024-04-28] MEDS: LORazepam 2 MG/ML VIAL IVPUSH (03:15)
[2024-04-28] MEDS: Morphine Sulfate 2 MG/ML CARTRIDGE IVPUSH (03:16)
[2024-04-28] MEDS: Acetaminophen 1,000 MG/100 ML PIGGYBACK 400 MG IV (03:16)
[2024-04-28 03:18] LABS: Alkaline Phosphatase 65 U/L (39-117)
[2024-04-28 03:22] LABS: Alanine Aminotransferase 9 U/L (0-31); Albumin Level 4.4 g/dL (3.5-5.0); Anion Gap 18 (12-20); Aspartate Amino Transferase 15 U/L (5-31); Bilirubin Total 1.2 mg/dL (0.0-1.0); Blood Urea Nitrogen 12 mg/dL (9-16); Calcium 9.8 mg/dL (8.4-10.2); Carbon Dioxide 27 mmol/L (22-29); Chloride 98 mmol/L (96-108); Creatinine Clr Calc Pharmacy 90.8; Estimated Glomerular Filt Rate > 60; Glucose Random 132 mg/dL (60-115); Potassium 2.7 mmol/L (3.3-5.1); Sodium 140 mmol/L (135-145); Total Protein 7.9 g/dL (6.5-8.0)
--- NOTE | 2024-04-28 03:32 | PC.NURSE ---
pt a&ox4, respirations even and unlabored. pt reporting being seen here [place] [facility] [place] and leaving AMA. pt reports today her pain has come back and has not been able to tolerate PO and has had n/v. pt denies diarrhea. 18G placed in left ac. nsr on tele 65-68bpm.
[2024-04-28 03:41] LABS: SLIDE REVIEW VERIFIED
[2024-04-28 03:45] LABS: Lipase 9 U/L (8-78)
[2024-04-28] MEDS: 0.9 % Sodium Chloride 1,000 ML 999 ML IV (04:04)
[2024-04-28] MEDS: Potassium Chloride Packet 20 MEQ PACKET 40 MEQ PO (04:05)
[2024-04-28] MEDS: Potassium Chloride/H20 10 MEQ/100 ML PIGGYBACK 100 MEQ IV ×5 (04:05→09:21)
--- NOTE | 2024-04-28 05:24 | P.HPHOSP_ITS ---
History of Present Illness Date of Service: 04/28/24 Chief Complaint: Nausea/vomiting This is a 38-year-old female with pertinent history of cannabis hyperemesis syndrome, recent admission due to cyclical vomiting syndrome from cannabis use, left AMA on 04/27/24, who presents to the emergency department for evaluation of nausea and vomiting. Patient states she had to go home due to an emergency. She denies smoking marijuana at home. Patient presented to the ER with ongoing nausea and vomiting and inability tolerate p.o. intake. Also has been having generalized abdominal discomfort, nonradiating, nonprogressive and without any relieving factors. Does endorse symptoms gastroesophageal reflux disease. No fever, chills, chest pain, palpitations, shortness of breath, changes in urinary or bowel habits. In the emergency department, potassium was found to be 2.7. Review of Systems 2 Constitutional: Constitutional: Reports fatigue, Reports lethargy, Reports malaise, Reports poor appetite and Reports weakness Cardiovascular: Cardiovascular: Reports no additional cardiovascular complaints Respiratory: Respiratory: Reports no additional respiratory complaints Gastrointestinal: Gastrointestinal: Reports abdominal pain, Reports nausea and Reports vomiting Genitourinary: Genitourinary: Reports no additional female genitourinary complaints Neurologic: Reports weakness Endocrine: Endocrine: Reports fatigue [facility] Medical History Shortness of breath Sinus tachycardia Cyclical vomiting Anxiety Ureteric calculus Family History Father Heart disease Other Hypokalemia Social History Household Members: Family Housing: House Do you presently have visiting nurse or other home services: No Alcohol intake: never Patient Tobacco Use Status: Current everyday Tobacco user Substance Use Type: Marijuana Advance Directives: No Do you have a plan to hurt others: No Plan service: No Meds Allergies Allergy/AdvReac Type Severity Reaction Status Date / Time hydromorphone [Dilaudid] Allergy Unknown hives Verified 04/28/24 02:39 metoclopramide [From Reglan] Allergy Unknown Verified 04/28/24 02:39 ibuprofen [From MOTRIN] AdvReac Mild STOMACH Verified 04/28/24 02:39 UPSET Home Medications ?Medication ?Instructions ?Recorded ?Confirmed ?Last Taken ?Type metoprolol succinate 50 mg 50 mg PO DAILY 04/24/24 04/24/24 04/22/24 History tablet,extended release 24 hr Physical Exam 2 Vital Signs and Narrative: Vital Signs: Last Vital Signs Temp 98.3 F 04/28/24 04:28 Pulse 73 04/28/24 04:28 Resp 16 04/28/24 04:28 BP 127/70 04/28/24 04:28 Pulse Ox 97 04/28/24 04:28 O2 Del Method Room Air 04/28/24 04:28 BMI result Body Mass Index 28.9 Middle-aged female lying in bed in no distress Neck supple, no JVD Regular rate and rhythm, S1-S2 heard Regular breath sounds bilaterally, no wheezing or crackles appreciated Abdomen soft nontender, no guarding, no rigidity Patient is awake, alert and oriented to self, place, time and person ; no focal motor deficit Psych: Anxious No pedal edema Results Labs 04/28/24 02:51 04/28/24 02:51 Labs: Laboratory Results - last 24 hr 04/28/24 02:51 MCV 74.1 L MCH 25.9 L MCHC 35.0 RDW 15.6 Plt Count 318 MPV 10.7 Immature Gran % (Auto) 0.4 Neut % (Auto) 67.7 Lymph % (Auto) 20.7 [place] % (Auto) 10.3 Eos % (Auto) 0.5 Baso % (Auto) 0.4 Lymph # (Auto) 3.4 [place] # (Auto) 1.7 H Eos # (Auto) 0.1 Baso # (Auto) 0.1 Abs Immat Gran (auto) 0.07 H Absolute Neuts (auto) 11.1 H Absolute Nucleated RBC 0.000 Nucleated RBC % (auto) 0.0 Smear Tech's Comments VERIFIED Anion Gap 18 Estim Creat Clear Calc 90.8 Estimated GFR > 60 Random Glucose 132 H Calcium 9.8 Total Bilirubin 1.2 H AST 15 ALT 9 Alkaline Phosphatase 65 Total Protein 7.9 Albumin 4.4 Lipase 9 Assessment and Plan (1) Cannabinoid hyperemesis syndrome: Status: Acute Plan This is a 38-year-old female with pertinent history of cannabis hyperemesis syndrome, recent admission due to cyclical vomiting syndrome from cannabis use, left AMA on 04/27/24, who presents to the emergency department for evaluation of nausea and vomiting. #. Cannabinoid hyperemesis syndrome: Resuscitated with IV crystalloids and given dopamine antagonist in the ER. Ordered capsaicin cream. Clear liquid diet and advance as tolerated. Symptomatic treatment with antiemetics p.r.n. #. Hypokalemia due to GI losses: Repleted #. Gastroesophageal reflux disease: Initiated PPI #. Leukocytosis, reactive DVT prophylaxis: Lovenox Full code Admit as inpatient and will require two night minimum hospital stay for monitoring of electrolytes, tolerance of p.o. intake (as above), which is not possible in a lesser acute setting. Quality Stroke Does the patient have a stroke diagnosis?: No VTE Prior VTE?: No VTE Risk Level:: Medical - moderate - high VTE Device Contraindication: Treatment Not Indicated VTE Drug Contraindication: N/A - Med Ordered
[2024-04-28] MEDS: Enoxaparin Sodium 40 MG/0.4 ML SYRINGE SUBCUT (06:16)
[2024-04-28] MEDS: droPERidol 5 MG/2 ML VIAL 1.25 MG IVPUSH (06:16)
[2024-04-28] MEDS: Omeprazole 40 MG CAPSULE.DR PO (06:17)
[2024-04-28] MEDS: Lactated Ringers 1,000 ML 999 ML IV (06:17)
--- NOTE | 2024-04-28 06:31 | PC.NURSE ---
pt medicated per mar, tolerated whole well with water. pt denies pain at this time and reports nausea has subsided.
[2024-04-28] MEDS: Capsaicin 0.025% Cream 60 GM TUBE 1 APPL TOPICAL (07:17)
--- NOTE | 2024-04-28 08:11 | PHA.MEDREC ---
Addendum entered by Xiomara Mcarthur RP 04/28/24 08:23: Reviewed by [facility] Original Note: Pharmacy Consult ? Medication Reconciliation Pharmacy has completed the medication reconciliation. Spoke with patient to confirm her medications. Patient stated she takes Metoprolol once a day and when asked the dosage she confirmed it was 50mg but did not know if it was IR or ER; she states she fills at [facility] on [address] Per last discharge 04/27 I called [facility] 04/24 and they confirmed she has not filled Metoprolol with them since February 2023. She confirmed today she is also still has Clonidine and Aripiprazole that she has not been compliant with taking but still has at home on occasion. Patient stated she takes 0.3mg of Clonidine as needed at bedtime, in claims Clonidine 0.1mg was filled 01/10/24 qty 30 as needed. Patient didn't know dose of Aripiprazole, claims show she filled Aripiprazole 5mg tab qty 30 on 01/10/24. She states she took the Metoprolol this morning.
--- NOTE | 2024-04-28 08:42 | PM.EVENT ---
Event Note Date of Service: 04/28/24 Event Note: date of service and discharge : 04/28/24. discharge summary note: 38-year-old female with pertinent history of cannabis hyperemesis syndrome, recent admission due to cyclical vomiting syndrome from cannabis use, left AMA on 04/27/24, who presents to the emergency department for evaluation of nausea and vomiting: given hydration ,antiemtics and repleted potassium -patient decided to leave ama -she did not wait to talk to me . staff explained her to wait and explained risk ,but patient did not wait and left. also sent potassium 20 meq qdx4 days . Discharge diagnosis:cannabis hyperemesis syndrome Hypokalemia due to GI losses. Time Spent With Patient Time: Total time managing care of this patient today ____ minutes.
[2024-04-28] MEDS: Metoprolol Succinate ER 50 MG TAB.ER.24H PO (09:21)
--- NOTE | 2024-04-28 11:05 | PC.NURSE ---
Pt up oob in the doorway asking to leave AMA. Pt states Take my IV out, I need to go right now . MD Dai notified of patient wanting to leave AMA.
--- NOTE | 2024-04-28 11:09 | PC.NURSE ---
Pt repeatedly asking to be DC'd; admitting MD made aware; no DC orders at this time
--- NOTE | 2024-04-28 13:11 | MHC.CM.PN ---
PT WAS GONE WHEN CM ARRIVED.
== END 2024-04-28 17:51 | disposition left against medical advice (07) | DRG 425 ==
LOC: HO.ED 04:03 → HO.EDOVER 05:35
PROVIDERS: Admitting Provider Student in an Organized Health Care Education/Training Program; Emergency Provider Emergency Medicine; PCP Nurse Practitioner Family; Visit Provider Internal Medicine
DX: E87.6 Hypokalemia (principal); F12.90 Cannabis use, unspecified, uncomplicated; R11.2 Nausea with vomiting, unspecified; K21.9 Gastro-esophageal reflux disease without esophagitis; Z79.899 Other long term (current) drug therapy
CPT/HCPCS: 36415; 80053; 83690; 85025; 93005; 99285; J0131; J1650; J1790; J2060; J2270; J2405; J3480; J7120

== ENCOUNTER → 2024-04-28 02:44 | Outpatient (BNV) | payer OTHER, SELFPAY | PROVIDERS: Admitting Provider Student in an Organized Health Care Education/Training Program; Emergency Provider Emergency Medicine; PCP Nurse Practitioner Family; Visit Provider Internal Medicine Cardiovascular Disease | DX: R00.2 Palpitations (principal) | CPT/HCPCS: 93010 ==

== ENCOUNTER → 2024-04-28 03:09 | Outpatient (BNV) | payer OTHER, SELFPAY | PROVIDERS: Emergency Provider Emergency Medicine; PCP Nurse Practitioner Family; Visit Provider Student in an Organized Health Care Education/Training Program | DX: R11.2 Nausea with vomiting, unspecified (principal); F12.90 Cannabis use, unspecified, uncomplicated; Z53.29 Procedure and treatment not carried out because of patient's decision for other reasons | CPT/HCPCS: 99235; 99499 ==

== ENCOUNTER 2024-06-10 04:01 | Observation (INO) | payer OTHER, SELFPAY ==
[2024-06-10] VITALS (9 sets, daily range): BP systolic 105–144; BP diastolic 53–82; PULSE 81–100; RESP 16–22; TEMP 36.6–37.2; O2SAT 96–100; BMI 29.0; BMI 27.6; BMI 28.4
--- NOTE | 2024-06-10 04:59 | ED_ITS ---
HPI - Nausea/Vomiting/Diarrhea General Chief complaint: Nausea/Vomiting/Diarrhea Stated complaint: N/V Time Seen by Provider: 06/10/24 04:39 Source: patient Mode of arrival: ambulatory Limitations: no limitations History of Present Illness ED Provider: HPI Narrative: Patient's history of cyclic vomiting syndrome secondary to cannabis use comes here for nausea vomiting started earlier today after smoking marijuana vomited 6-7 times no diarrhea no fever no chills diffuse abdominal cramps history of same in the past been here multiple times no fever no chills Related Data Home Medications ?Medication ?Instructions ?Recorded ?Confirmed metoprolol succinate 50 mg 50 mg PO DAILY 04/24/24 04/28/24 tablet,extended release 24 hr aripiprazole 5 mg tablet 5 mg PO DAILY 04/28/24 04/28/24 clonidine HCl 0.1 mg tablet 0.1 mg PO BEDTIME PRN anxiety 04/28/24 04/28/24 Previous Rx's ?Medication ?Instructions ?Recorded lorazepam 1 mg tablet (Ativan) 1 mg PO BID PRN anxiety #14 tabs 06/10/24 ondansetron 4 mg disintegrating 4 mg PO Q6-8H PRN nausea and 06/10/24 tablet vomiting #7 tabs Allergies Allergy/AdvReac Type Severity Reaction Status Date / Time hydromorphone [Dilaudid] Allergy Unknown hives Verified 06/10/24 04:08 metoclopramide [From Reglan] Allergy Unknown Verified 06/10/24 04:08 ibuprofen [From MOTRIN] AdvReac Mild STOMACH Verified 06/10/24 04:08 UPSET Review of Systems 2 Review of Systems: Yes all other systems are reviewed and are negative [facility] Past Medical History Medical History Shortness of breath Sinus tachycardia Cyclical vomiting Anxiety Ureteric calculus Family History Family History Father Heart disease Other Hypokalemia Social History Social History Household Members: Family Housing: House Do you presently have visiting nurse or other home services: No Alcohol intake: never Patient Tobacco Use Status: Never used Tobacco Smoked in Last 30 Days: No Substance Use Type: Marijuana Substance Use Frequency: Daily Advance Directives: No Advance Directives Information Provided: Yes Do you have a plan to hurt others: No Plan service: No Physical Exam 2 Vital Signs: Vital Signs: Last Vital Signs Temp 98.4 F 06/10/24 06:19 Pulse 93 06/10/24 06:19 Resp 16 06/10/24 06:19 BP 132/66 06/10/24 06:19 Pulse Ox 96 06/10/24 06:19 O2 Del Method Room Air 06/10/24 06:19 BMI result Body Mass Index 29.0 Appearance: Alert. Oriented X3. Anxious Eyes: No pallor or icterus ENT: Pharynx normal. Oral Mucosa moist Neck: Normal inspection. Neck supple. CVS: Normal heart rate and rhythm. Pulses normal. Respiratory: No respiratory distress. Equal air entry bilateral, no wheezing/rales/rhonchi Abdomen: Soft and diffuse tenderness no rebound tenderness or guarding Bowel sounds are present, no mass palpable, no CVA tenderness Skin: Skin warm and dry. Normal skin color. Normal skin turgor. Extremities: No lower extremity edema. No calf tenderness Neuro: Oriented X 3. No motor deficit. Medications Administered Discontinued Medications Generic Name Dose Route Start Last Admin Trade Name Freq PRN Reason Stop Dose Admin Sodium Chloride 1,000 mls @ 999 mls/hr 06/10/24 05:09 06/10/24 05:12 Ns IV 06/10/24 06:09 999 mls/hr .Q1H1M ONE Administration Midazolam HCl 2 mg 06/10/24 05:10 06/10/24 05:16 Midazolam Hcl 2 Mg/2 Ml Vial IVPUSH 06/10/24 05:11 2 mg ONCE ONE Administration Prochlorperazine Edisylate 10 mg 06/10/24 05:09 06/10/24 05:16 Prochlorperazine Edisylate 10 Mg/2 Ml Vial IVPUSH 06/10/24 05:10 10 mg ONCE ONE Administration Medical Decision Making Medical Decision Making [facility] Narrative: Patient with cannabis induced vomiting/anxiety improved after IV hydration and medications taking p.o. fluids discharge patient home advised not to smoke marijuana anymore Differential Diagnosis Differential Diagnoses: The differential diagnosis associated with the presentation includes Lab Data [facility] Lab Attestation statement: I reviewed the patient's lab results. 06/10/24 05:19 06/10/24 05:05 Labs: Lab Results 06/10/24 06/10/24 Range/Units 05:05 05:19 WBC 23.7 H (4.8-10.8) X10*3/uL RBC 4.95 (4.20-5.50) X10*6/uL Hgb 12.6 (12.0-16.0) g/dl Hct 37.5 (37.0-47.0) % MCV 75.8 L (80.0-98.0) fL MCH 25.5 L (27.0-33.0) pg MCHC 33.6 (31.0-35.0) g/dl RDW 15.7 (11.0-16.0) % Plt Count 309 (160-400) X10*3/uL MPV 11.3 (9.4-12.3) fL Immature Gran % (Auto) 0.8 H (0.0-0.4) % Neut % (Auto) 87.5 H (45-73) % Lymph % (Auto) 7.9 L (20-40) % [place] % (Auto) 3.5 (2-11) % Eos % (Auto) 0.0 (0-4) % Baso % (Auto) 0.3 (0-2) % Lymph # (Auto) 1.9 (1.2-4.9) X10*3/uL [place] # (Auto) 0.8 (0.1-1.2) X10*3/uL Eos # (Auto) 0.0 (0.0-0.4) X10*3/uL Baso # (Auto) 0.1 (0.0-0.2) X10*3/uL Abs Immat Gran (auto) 0.20 H (0.00-0.03) X10*3/uL Absolute Neuts (auto) 20.8 H (2.0-8.3) x10*3/uL Absolute Nucleated RBC 0.000 (0.0-0.012) X10*3/uL Nucleated RBC % (auto) 0.0 (0.0-0.2) /100WBC Smear Tech's Comments VERIFIED Sodium 139 (135-145) mmol/L Potassium 3.8 D (3.3-5.1) mmol/L Chloride 109 H (96-108) mmol/L Carbon Dioxide 21 L (22-29) mmol/L Anion Gap 13 (12-20) BUN 11 (9-16) mg/dL Creatinine 0.75 (0.5-1.4) mg/dL Estim Creat Clear Calc 111.7 Estimated GFR > 60 Random Glucose 208 H (60-115) mg/dL Calcium 8.8 D (8.4-10.2) mg/dL Total Bilirubin 0.5 (0.0-1.0) mg/dL AST 15 (5-31) U/L ALT 6 (0-31) U/L Alkaline Phosphatase 53 (39-117) U/L Total Protein 6.6 (6.5-8.0) g/dL Albumin 4.1 (3.5-5.0) g/dL Lipase 11 (8-78) U/L Discharge Plan Discharge Clinical Impression: Cannabis-induced disorder, Cyclic vomiting syndrome Patient Disposition: Home, Self-Care Instructions: Cannabis Use Disorder (ED), Cyclic Vomiting Syndrome (ED) Additional Instructions: Stop using cannabis Medicine for nausea and anxiety as prescribed Prescriptions: New ondansetron 4 mg tablet,disintegrating 4 mg PO Q6-8H PRN (Reason: nausea and vomiting) Qty: 7 0RF lorazepam [Ativan] 1 mg tablet 1 mg PO BID PRN (Reason: anxiety) Qty: 14 0RF No Action clonidine HCl 0.1 mg tablet 0.1 mg PO BEDTIME PRN (Reason: anxiety) aripiprazole 5 mg tablet 5 mg PO DAILY metoprolol succinate 50 mg Tablet Extended Release 24 Hr 50 mg PO DAILY Print Language: Tajik
[2024-06-10] MEDS: 0.9 % Sodium Chloride 1,000 ML 999 ML IV ×2 (05:12→07:27)
[2024-06-10] MEDS: Prochlorperazine Edisylate 10 MG/2 ML VIAL IVPUSH ×3 (05:16→22:07)
[2024-06-10] MEDS: Midazolam HCl 2 MG/2 ML VIAL IVPUSH (05:16)
[2024-06-10 05:24] LABS: Basophils Absolute Auto 0.1 X10*3/uL (0.0-0.2); Basophils Percent Auto 0.3 % (0-2); Hematocrit 37.5 % (37.0-47.0); Hemoglobin 12.6 g/dl (12.0-16.0); Imm Gran Pct Auto 0.8 % (0.0-0.4); Lymphocytes Absolute Auto 1.9 X10*3/uL (1.2-4.9); Lymphocytes Percent Auto 7.9 % (20-40); MANUAL DIFF FLAG SCAN; Mean Corpuscular HGB Conc 33.6 g/dl (31.0-35.0); Mean Corpuscular Hemoglobin 25.5 pg (27.0-33.0); Mean Corpuscular Volume 75.8 fL (80.0-98.0); Mean Platelet Volume 11.3 fL (9.4-12.3); Monocytes Absolute Auto 0.8 X10*3/uL (0.1-1.2); Monocytes Percent Auto 3.5 % (2-11); Neutrophils Absolute Auto 20.8 x10*3/uL (2.0-8.3); Neutrophils Percent Auto 87.5 % (45-73); Platelet Count 309 X10*3/uL (160-400); Red Blood Count 4.95 X10*6/uL (4.20-5.50); Red Cell Distribution Width 15.7 % (11.0-16.0); SCAN SMEAR FLAG 1; White Blood Count 23.7 X10*3/uL (4.8-10.8)
[2024-06-10 05:39] LABS: Alanine Aminotransferase 6 U/L (0-31); Albumin Level 4.1 g/dL (3.5-5.0); Alkaline Phosphatase 53 U/L (39-117); Anion Gap 13 (12-20); Aspartate Amino Transferase 15 U/L (5-31); Bilirubin Total 0.5 mg/dL (0.0-1.0); Blood Urea Nitrogen 11 mg/dL (9-16); Calcium 8.8 mg/dL (8.4-10.2); Carbon Dioxide 21 mmol/L (22-29); Chloride 109 mmol/L (96-108); Creatinine Clr Calc Pharmacy 111.7; Estimated Glomerular Filt Rate > 60; Glucose Random 208 mg/dL (60-115); Lipase 11 U/L (8-78); Potassium 3.8 mmol/L (3.3-5.1); Sodium 139 mmol/L (135-145); Total Protein 6.6 g/dL (6.5-8.0)
[2024-06-10 05:42] LABS: SLIDE REVIEW VERIFIED
--- OUTSIDE RECORDS SUMMARY | 2024-06-10 05:59 | XMS_ITS | Clinical Summary ---
Author Organization [employer] [facility] ity Address [address] [place] [address] Care Team Providers Care Nurse Healthcare Manager Name Role Phone Unavailable Primary Care Provider Unavailabl e Social History Tobacco Use Types Packs/Day Years Used Date Smoking Tobacco: Never Assessed Comments Unknown Sex and Gender Information Value Date Recorded Sex Assigned at Not on file Legal Sex Female 8:51 AM EST Gender Identity Not on file Sexual Orientation Not on file Plan of Treatment Health Maintenance Due Date Last Done Comments DTaP,Tdap,and Td Vaccines (1 - Tdap) 08/24/2006 Hepatitis B Vaccines (1 of 3 - 19+ 3-dose series) 08/24/2006 Cervical Cancer Screening: P ap Smear 08/24/2008 Depression Screening 01/11/2022 HIV Screening 01/11/2022 Hepatitis C Screening 01/11/2022 Social Influencers of Health Screening 01/11/2022 COVID-19 Vaccine (2023-2 5 season) 2023 Influenza Vaccine (Season Ended) 2024 HIB Vaccines Aged Out No longer eligi [...] patient's age to complete this topic Meningococcal B Vaccine Aged Out No l onger eligible based on patient's age to complete [...]
--- OUTSIDE RECORDS SUMMARY | 2024-06-10 05:59 | XMS_ITS | Data Portability ---
Author Organization [facility], [address] Address [address] [place] [address] Care Team Providers Care Stereo Operator Name Role Phone [facility] Primary Care Provider Assessment No assessment recorded. Plan of Treatment Reminders Order Date Submit Date Provider Last Modified By Organization Details Last Modified Time Details Appointments None recorded. Lab rapid strep group A, throat 2023 024 [email or web address] [facility] [address], [address] [place], [address], 4 09:21:08 Referral None recorded. Procedures None recorded. Surgeries None recorded. Imaging None recorded. Medication Orders amoxicillin 875 mg tablet 2023 024 [id number], [address] [place], [address], 4 09:21:40 Patient TargetsNo targets recorded. Patient Instructions Encounter Date Encounter Id Patient Instructions Last Modified By Organization Details Last Modified Time 08/23/2023 [id number] specimen collection & handling* JELANI Not available 08/23/2023 09:27:11 Reason for Referral None Reported. Results Created Date Observation Date Name Description Value Unit Range Abnormal Flag Note LastModifiedBy Organization Detail LastModifiedTime 08/23/1908/26/2023 BETA STREP GP A CULTU RE beta strep gp A culture NEGATI VE Refer ence Range : Negat sarah Not Available [facility] ([facility]) [address], [place], [address], 08/26/2023 08:09:06 08/23/19 24 08/23/2023 speci men colle ction & handl ing* Completed? Succes sfully Not Available [address] [place], [address], 08/23/2023 09:20:44 08/23/19 24 08/23/2023 speci men colle ction & handl ing* If unsuccessful , attempts 1 Not Available [address] [place] [address] [address] [place], [address], 08/23/2023 09:20:44 08/23/19 24 08/23/2023 rapid strep group A, throa t Unknown Analyte negati ve Not Available [address] [place], [address], 08/23/2023 09:10:26 08/23/19 24 08/23/2023 rapid strep group A, throa t Unknown Analyte yes Not Available [address] [place] [address] [address] [place], [address], 08/23/2023 09:10:26 Result Notes None recorded. 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 Active Mikhail Curto null, PA - [facility] 4 09:01:40 Asthma 857124253 Active Mikhail Curto null, PA - [facility] 4 09:01:46 Palpation Active 2023 Mikhail Curto null, PA - [facility] 4 09:05:38 Streptococcal sore throat 65675548 Active 2023 Davonte Suárez NP [address] [place], [address] , [place] - [facility] 4 09:21:20 [...] Name and Address Organization Details Recorded Time 586055 ibuprofen medicatio n Not available Not available Not available 08/23/2023 5640 RxNorm Unabl e to take due to h pylor i Mikhail Curto null, PA - [facility] 4 09:00:20 433033 Dilaudid medicatio n rash Not available Not available 08/23/2023 04800 3 RxNorm Mikhail Curto null, PA - [facility] 4 09:00:36 516540 Reglan medicatio n Not available Not available [...] t Available Vitals Date Recorded Body height Body mass index (BMI) Body weight Oxygen saturation Oxygen saturation in Arterial blood by Pulse oximetry Heart rate Pain severity - 0-10 verbal numeric rating [Score] - Reported Body temperature Respiratory rate Systolic blood pressure Diastolic blood pressure Provider Name and Address Organization Details Last Updated DateTime 4 167.64 cm 29.1 kg/m2 33046.6 3 g 96 % 96 % 86 /min 8 98.6 [degF] 14 /min 127 mm[Hg] 86 mm[Hg] Mikhail Curto PA - [facility] 09:07:23 Social History Question Answer Notes LastModified by Organizat ion Details LastModified Time Tobacco Smoking Status Never Smoker [facility] 08/23/2023 09:02:05 What Is Your [...] Use Any Illicit Or Recreational Drugs? Yes [place] Information not available 08/23/2023 Have You Recently [...] SNOMED-CT Code Diagnosis ICD10 Code Diagnosis Note [id number] Davonte Suárez, [place] [address] [facility] [address] [place] [address] 08/23/2023 08:55:35 08/23/2023 09:23:04 Streptococcal sore throat 83046972 J02.0 Based on your Presentati on, Exam, [...] Alas Member ID Guarantor Name 08/23/2023 1 [facility] NET PLAN (MEDICAID HMO) Felecia Francisco [id number] Felecia Singh Notes Date Note Type Note [...] Modifying Factors:exposed to Strep non household Davonte Suárez NP [address] [place], [address], PA - [facility] 08/23/2023 09:22:45 OBGyn Episode No OBEpisode recorded.
--- OUTSIDE RECORDS SUMMARY | 2024-06-10 05:59 | XMS_ITS | Encounter Summary ---
Author Organization [facility] Address [address] [place], [place] [id number] Phone Care Team Providers Care Division Chief Name Role Phone Unavailable Primary Care Provider Unavailabl e Encounter Details Date Type Department Care Team (Late st Contact Info) Description 12/10/2016 Conversion Encounter [facility] - [address] [address] Social History Tobacco Use Types Packs/Day Years [...]
--- OUTSIDE RECORDS SUMMARY | 2024-06-10 05:59 | XMS_ITS | Clinical Summary ---
Author Organization [facility] Address [address] [place] [address] Care Team Providers Care Director Of Analytical Development Name Role Phone Ana Viveros PA-C Primary Care Provider Source Comments PLEASE NOTE, if this patient [...] inhalerIndication s:Mild intermittent asthma, unspecified whether complicated (HHS-HCC) Inhale 2 Puffs into the lungs every [...] CT abdomen - done at [place] [facility] 09/22/14 - impression multiple bilateral non obstructing renal calculi the largest up to 5 mm. No hydronephrosis Epigastric abdominal pain 08/21/2014 Overview (08/21/2014): EGD - Done at [facility] - 08/14/14 -Findings Normal esophagus , stomach Mucosa, Normal Duodenum- awaiting stomach Biopsy Unspecified asthma(493.90) 03/06/2014 Overview (06/03/2014): per PMH as noted on previous medical records -- Normal spirometry 08/30/07 Right nephrolithiasis Without evidence of hydron ephrosis 03/06/2014 Overview (03/06/2014): UG gall Bladder 06/22/13 Hx of gastritis 03/06/2014 Overview (03/06/2014): Per hospital records [facility] ADHD (attention deficit hyperactivity disorder) 02/20/2014 Overview (02/20/2014): As per hospital record reviewed Marijuana use 02/20/2014 Overview (02/20/2014): As per hospital record reviewed Immunizations Immunization Administration Dates Next Due Flu, Preservative Free 12/22/2019,01/30/2016 Hep B, Adult/Adol (ENERGIX/RECOMBIVAX) 2 Hep B,adult,adjuvanted (HEPLISAV) 06/15/2022 MMR (MMR II/Priorix) 02/28/2020,09/21/2011 PPD 02/17/2022,04/22/2018,09/21/2011 Pfizer COVID vaccine, COMLUCY SHELTON, martin cap, 12+ 05/06/2022 Pfizer-BioNTech COVID-19 [...] Health Maintenance Due Date Last Done Comments Anxiety Screening 1987 HPV Screening 1987 Pap + HPV 1987 Tobacco Screening 1987 Imm-Pneumococcal (2 of 2 - PCV) 01/16/2015 4 Annual Preventive Care Visit 02/20/2022 02/20/2021, 06/01/2014 Relationship Safety Screening/Counseling 02/20/2022 02/20/2021 Cervical Cancer Screening 09/07/2022 Pap Smear 09/07/2022 09/08/2019 ([place] by Outside Provider), 04/27/2014 (Managed by Outside Provider), 02/19/2014 (Managed by Outside Provider) [id number] ( season) 2023 023, 05/06/2022 Imm-Influenza (#1) 2023 12/22/2019, 1 , 01/30/2016, Additional history exists Alcohol and Drug Screen 02/09/2024 06/16/19, 02/20/2021, 04/22/2018, Additional history exists Depression Annual Screen 02/09/2024 08/06/2022, 02/08 Diabetes Screening 06/15/2025 06/15/2022, 0 06/15/2022, 02/19/2014, Additional history exists Hypertension Screening (#1) 03/02/2026 Imm-DTaP/Tdap/Td (9 - Td or Tdap) 12/19/2029 [...] RT PCR (06/15/2022 2:47 PM EDT) Pathologist [facility] HEPATITIS C ANTIBODY NON-REACT SERGEY NON-REACT SERGEY [facility] SIGNAL TO CUT-OFF 0.14 <1.00 [facility] Comment: HCV antibody was non-reactive. There is no laboratory evidence of HCV infection. In most cases, no further action is required. However, if recent HCV exposure is suspected, a test for HCV RNA (test code 37047) is suggested. For additional information please refer to http://education.[employer]/faq/XQE04l0 (This link is being provided for informational/ educational purposes only.) Blood Blood / Unknown 06/15/2022 2 :47 PM EDT 06/15/2022 2:47 PM EDT Ana Viveros PA-C LAB - BLOOD DRAW Edited Resu lt - Final [facility] [address] [place] [id number], [facility] [address] [place] [phone] * HIV 1/2 AG & AB W/RFLX (4TH GEN) (06/15/2022 2:47 PM EDT) Pathologist [facility] HIV AG/AB, 4TH GEN NON-REAC TIVE NON-REAC TIVE [facility] Comment: HIV-1 antigen and HIV-1/HIV-2 antibodies were [...] ?? For additional information please refer to http://education.[employer]/faq/RXD573 (This link is being provided for informational/ educational purposes only.) The performance of this assay has not been clinically validated in patients less than 2 years old. Blood Blood / Unknown 06/15/2022 2 :47 PM EDT 06/15/2022 2:47 PM EDT Ana Viveros PA-C LAB - BLOOD DRAW Final Resul t [facility] [address] [address], [facility] [address] [place] [phone] * (ABNORMAL) COMPREHENSIVE METABOLIC PANEL (06/15/2022 2:47 PM EDT) [facility] GLUCOSE 108(H) 65 - 99 mg/dL [facility] Comment: ?Fasting reference interval For someone without known diabetes, a glucose value between 100 and 125 mg/dL is consistent with prediabetes and should be confirmed with a follow-up test. UREA NITROGEN (BUN) 9 7 - 25 mg/dL [facility] CREATININE (blood) 0.48(L) 0.50 - 0.97 mg/dL [facility] EGFR 127 > OR = 60 mL/min/1. 73m2 [facility] Comment: The eGFR is based on the CKD-EPI 202 equation. To calculate the new eGFR from a previous Creatinine or Cystatin C result, go to https://www.kidney.org/professionals/ kdoqi/gfr%5Fcalculator BUN/CREATININE RATIO 19 6 - 22 (calc) [facility] SODIUM 138 135 - 146 mmol/L [facility] POTASSIUM 3.9 3.5 - 5.3 mmol/L [facility] [place] [facility] CHLORIDE 107 98 - 110 mmol/L [facility] CARBON DIOXIDE 22 20 - 32 mmol/L [facility] CALCIUM 9.2 8.6 - 10.2 mg/dL [facility] PROTEIN, TOTAL 6.5 6.1 - 8.1 g/dL [facility] ALBUMIN 4.2 3.6 - 5.1 g/dL [facility] GLOBULIN 2.3 1.9 - 3.7 g/dL (calc) [facility] ALBUMIN/GLOBULI N RATIO 1.8 1.0 - 2.5 (calc) [facility] BILIRUBIN, TOTAL 0.6 0.2 - 1.2 mg/dL [facility] ALKALINE PHOSPHATASE 54 31 - 125 U/L [facility] AST 10 10 - 30 U/L [facility] ALT 10 6 - 29 U/L [facility] Blood Blood / Unknown 06/15/2022 2 :47 PM EDT 06/15/2022 2:47 PM EDT Ana Viveros PA-C LAB - BLOOD DRAW Edited Resu lt - Final [facility] [address] [address], [facility] [address] [place] [address] from Last 3 Months or Most Recently Relevant to Health Maintenance Insurance [facility] [employer] Member Subscriber Plan / Payer (Ef fective 2023-Present) Name:Harry Felecia Relation to Subscriber:Self Name:Felecia Mcdonald Payer ID:[id number] Group ID:Not on file Type:Medicaid Address: [facility] [address] [place] [address] Care Teams Director Of Analytical Development Relationship Specialty Start Date End Date Ana Viveros PA-C [facility] [place], [place] [phone] PCP - General Internal Medicine 11/25/20
--- OUTSIDE RECORDS SUMMARY | 2024-06-10 05:59 | XMS_ITS | Clinical Summary ---
Author Organization [facility] Address [address] [place] [address] Phone Care Team Providers Care Slab Puller Name Role Phone Unavailable Primary Care Provider Unavailabl e Immunizations Immunization Administration Dates Next Due DTaP 5 05/23/1992, 1,06/19/1988,1988,1987 Hep B, ped/adol 07/12/1998,01/15/1998,10/17/1997 Hib (HbOC) 07/14/1991 IPV 05/23/1992, 1,04/30/1988,1987 MMR 05/23/1992,04/14/1991 Measles 04/26/1993 Td (adult) (MBL), [...] 2 - 2-dose childhood series) 07/21/2000 04/28/2000 Influenza Vaccines (#1) 2023 COVID-19 Vaccine ( [...]
--- NOTE | 2024-06-10 07:23 | PC.NURSE ---
Resumed care of pt at 0700, pt DC in place, this RN went in to give PO ativan, and DC paperwork, pt became agitated with RN stating she still feels terrible, I can't stop vomiting, you admitted me last time Emotional support provided, this RN attempted to talk with pt about her frustrations, about why her symptoms are going to continue. This RN approached provider, who agreed to not DC at this time, 1 more bag of IVF ordered. This RN went in to hang fluids and she stated I am still nauseous, if you're just going to send me home then what is this shit going to do Pt given IVF at this time. Call licea within reach.
[2024-06-10] MEDS: diazePAM 10 MG/2 ML CARTRIDGE 5 MG IVPUSH (08:33)
[2024-06-10] MEDS: droPERidol 5 MG/2 ML VIAL 1.25 MG IVPUSH (08:33)
[2024-06-10 11:50] LABS: Appearance Urine Clear; Color Urine Yellow; Glucose Urine UA Negative (Negative); Leukocyte Esterase Urine Negative (Negative); Nitrite Urine Negative (Negative); Specific Gravity - Urine 1.015 (1.005-1.025); Urine Blood Negative (Negative); Urine Ketones 40 mg/dL (Negative); Urine Protein Negative (Neg-Trace)
[2024-06-10 11:52] LABS: UPreg QC Valid YES; Urine Pregnancy NEGATIVE (NEGATIVE)
[2024-06-10 12:07] LABS: Amphetamine Screen Urine Not Detected (Not Detect); Barbiturates, Urine Not Detected (Not Detect); Benzodiazepines Screen Urine POSITIVE (Not Detect); Buprenorphine Scr Not Detected (Not Detect); Cannabinoid Screen Urine POSITIVE (Not Detect); Cocaine Screen Urine Not Detected (Not Detect); Fentanyl, urine Not Detected (Not Detect); Methadone Screen, Urine Not Detected (Not Detect); Opiate Screen Urine Not Detected (Not Detect); Oxycodone Screen Urine Not Detected (Not Detect); Phencyclidine Screen Urine Not Detected (Not Detect)
[2024-06-10] MEDS: Morphine Sulfate 4 MG/ML CARTRIDGE IVPUSH ×3 (13:11→22:06)
[2024-06-10] MEDS: droPERidol 5 MG/2 ML VIAL 0.625 MG IVPUSH (13:11)
[2024-06-10] MEDS: Lactated Ringers 1,000 ML 200 ML IVCONT (14:08)
--- NOTE | 2024-06-10 14:20 | P.HPHOSP_ITS ---
History of Present Illness Date of Service: 06/10/24 Attending physician on admission: Luigi Ulloa Chief Complaint: Intractable N/V Pt is a 38-year-old female with a PMH significant for?cannabis hyperemesis syndrome and GERD who presents to the ED with?intractable nausea, vomiting, and abdominal pain since last night. Abdominal pain central and nonradiating, associated with vomiting. No fever or chills. Denies diarrhea. Pt unable to quantify current marijuana use, just saying that she has been smoking ?a lot? recently. Pt has presented to the ED numerous times in the past with similar complaints. Of note, has been admitted to the hospital for cannabis hyperemesis syndrome multiple times but often leaves AMA during the night. Pt denies shortness or breath or difficulty breathing. No cough. Denies chest pain/pressure, palpitations. Pt reports she knows that she should stop smoking marijuana, but has yet to fully commit to that endeavor. In the ED pt with elevated HR of 93 and RR of 22, satting 100% on RA. BP has been stable. Labs were significant for chronic leukocytosis elevated at 23.7. Stable H&H. No significant electrolyte abnormalities. Renal function WNL. Hepatic function WNL. UA negative for UTI. Tox screen positive for benzos and marijuana. Pt was treated in the ED with 2 L IVF, Compazine, midazolam, diazepam, droperidol 1.25 mg and 0.625 mg IV, morphine, and placed on maintenance fluids. Pt is admitted to the hospital under observation for treatment and further evaluation of intractable N/V in the setting of acute cannabis hyperemesis syndrome exacerbation. Review of Systems 2 Review of Systems: Negative except for that which is stated in the HPI. [facility] Medical History Shortness of breath Sinus tachycardia Cyclical vomiting Anxiety Ureteric calculus Family History Father Heart disease Other Hypokalemia Social History Household Members: Family Housing: House Do you presently have visiting nurse or other home services: No Alcohol intake: never Patient Tobacco Use Status: Never used Tobacco Smoked in Last 30 Days: No Substance Use Type: Marijuana Substance Use Frequency: Daily Advance Directives: No Advance Directives Information Provided: Yes Do you have a plan to hurt others: No Plan service: No Meds Allergies Allergy/AdvReac Type Severity Reaction Status Date / Time hydromorphone [Dilaudid] Allergy Unknown hives Verified 06/10/24 04:08 metoclopramide [From Reglan] Allergy Unknown Verified 06/10/24 04:08 ibuprofen [From MOTRIN] AdvReac Mild STOMACH Verified 06/10/24 04:08 UPSET Active Medications: Current Medications Lactated Ringer's (Lr) 1,000 mls @ 200 mls/hr IVCONT .Q5H KANDY Last Admin: 06/10/24 14:08 Dose: 200 mls/hr Home Medications ?Medication ?Instructions ?Recorded ?Confirmed ?Last Taken ?Type metoprolol succinate 50 mg 50 mg PO DAILY 04/24/24 04/28/24 04/28/24 History tablet,extended release 24 hr aripiprazole 5 mg tablet 5 mg PO DAILY 04/28/24 04/28/24 Unknown History clonidine HCl 0.1 mg tablet 0.1 mg PO BEDTIME PRN anxiety 04/28/24 04/28/24 Unknown History Physical Exam 2 Vital Signs and Narrative: Vital Signs: Last Vital Signs Temp 98 F 06/10/24 13:11 Pulse 87 06/10/24 13:11 Resp 16 06/10/24 13:11 BP 138/82 06/10/24 13:11 Pulse Ox 100 06/10/24 13:11 O2 Del Method Room Air 06/10/24 13:11 BMI result Body Mass Index 29.0 General: AOx3, looks uncomfortable, actively vomiting x1. In no acute distress Resp: CTA bilaterally CVS: S1, S2, RRR GI: +BS, no distention, epigastric abd tenderness Skin: Warm, dry Neuro: Cranial nerves II-XII grossly intact bilaterally. Motor grossly intact bilaterally Extremities: No edema Psych: Appropriate affect Results Labs 06/10/24 05:19 06/10/24 05:05 Labs: Laboratory Results - last 24 hr 06/10/24 06/10/24 06/10/24 05:05 05:19 11:36 MCV 75.8 L MCH 25.5 L MCHC 33.6 RDW 15.7 Plt Count 309 MPV 11.3 Immature Gran % (Auto) 0.8 H Neut % (Auto) 87.5 H Lymph % (Auto) 7.9 L [place] % (Auto) 3.5 Eos % (Auto) 0.0 Baso % (Auto) 0.3 Lymph # (Auto) 1.9 [place] # (Auto) 0.8 Eos # (Auto) 0.0 Baso # (Auto) 0.1 Abs Immat Gran (auto) 0.20 H Absolute Neuts (auto) 20.8 H Absolute Nucleated RBC 0.000 Nucleated RBC % (auto) 0.0 Smear Tech's Comments VERIFIED Anion Gap 13 Estim Creat Clear Calc 111.7 Estimated GFR > 60 Random Glucose 208 H Calcium 8.8 D Total Bilirubin 0.5 AST 15 ALT 6 Alkaline Phosphatase 53 Total Protein 6.6 Albumin 4.1 Lipase 11 Urine Color Yellow Urine Appearance Clear Urine pH 8.0 Ur Specific [place] 1.015 Urine Protein Negative Urine Glucose (UA) Negative Urine Ketones 40 Urine Blood Negative Urine Nitrite Negative Ur Leukocyte Esterase Negative Urine Test Urine Opiates Screen Ur Buprenorphine Scrn Ur Oxycodone Screen Urine Methadone Screen Urine Fentanyl Screen Ur Barbiturates Screen Ur Phencyclidine Scrn Ur Amphetamines Screen U Benzodiazepines Scrn Urine Cocaine Screen U Marijuana (THC) Screen 06/10/24 11:38 MCV MCH MCHC RDW Plt Count MPV Immature Gran % (Auto) Neut % (Auto) Lymph % (Auto) [place] % (Auto) Eos % (Auto) Baso % (Auto) Lymph # (Auto) [place] # (Auto) Eos # (Auto) Baso # (Auto) Abs Immat Gran (auto) Absolute Neuts (auto) Absolute Nucleated RBC Nucleated RBC % (auto) Smear Tech's Comments Anion Gap Estim Creat Clear Calc Estimated GFR Random Glucose Calcium Total Bilirubin AST ALT Alkaline Phosphatase Total Protein Albumin Lipase Urine Color Urine Appearance Urine pH Ur Specific [place] Urine Protein Urine Glucose (UA) Urine Ketones Urine Blood Urine Nitrite Ur Leukocyte Esterase Urine Test NEGATIVE Urine Opiates Screen Not Detected Ur Buprenorphine Scrn Not Detected Ur Oxycodone Screen Not Detected Urine Methadone Screen Not Detected Urine Fentanyl Screen Not Detected Ur Barbiturates Screen Not Detected Ur Phencyclidine Scrn Not Detected Ur Amphetamines Screen Not Detected U Benzodiazepines Scrn POSITIVE H Urine Cocaine Screen Not Detected U Marijuana (THC) Screen POSITIVE H Assessment and Plan (1) Cannabinoid hyperemesis syndrome: Status: Resolved Plan Pt is a 38-year-old female with a PMH significant for?cannabis hyperemesis syndrome and GERD who presents to the ED with?intractable nausea, vomiting, and abdominal pain since last night. Pt is admitted to the hospital under observation for treatment and further evaluation of intractable N/V in the setting of acute cannabis hyperemesis syndrome exacerbation. Cannabis hyperemesis syndrome exacerbation Pt with intractable N/V/abdominal pain since last night Multiple prior presentations to the ED with similar symptoms Reports smoking ?a lot? of marijuana recently Pt given IVF and multiple antiemetics in the ED with continued symptoms Will place on D5 LR at 125 mls/h Capsaicin cream Antiemetics, analgesics Clear liquid diet, advance as tolerated GERD Protonix IV x1 Continue PPI Full Code Attending:?Dr. Ulloa DVT Prophylaxis: Pt ambulatory Given that pt continues to be symptomatic despite ED treatment, they will be admitted to the hospital under observation for further treatment and management of intractable N/V and abdominal pain in the setting of acute cannabis hyperemesis syndrome exacerbation requiring IV analgesics and IV antiemetics. Quality Stroke Does the patient have a stroke diagnosis?: No VTE Prior VTE?: No VTE Risk Level:: Medical - moderate - high VTE Device Contraindication: Treatment Not Indicated VTE Drug Contraindication: Treatment Not Indicated
--- NOTE | 2024-06-10 15:25 | PHA.MEDREC ---
Pharmacy Consult ? Medication Reconciliation Pharmacy has completed the medication reconciliation. Pt attests to only taking metoprolol succinate 50 mg daily for rate control.
[2024-06-10] MEDS: Dextrose 5 % and Lactated Ring 1,000 ML 125 ML IVCONT (17:50)
[2024-06-11] MEDS: Dextrose 5 % and Lactated Ring 1,000 ML 125 ML IVCONT ×2 (01:21→08:11)
[2024-06-11] MEDS: Morphine Sulfate 4 MG/ML CARTRIDGE IVPUSH (03:26)
[2024-06-11] MEDS: Prochlorperazine Edisylate 10 MG/2 ML VIAL IVPUSH ×3 (03:26→12:53)
[2024-06-11 03:42] VITALS: BP 122/83; PULSE 105; RESP 18; TEMP 37.2; O2SAT 98
[2024-06-11 06:58] LABS: Anion Gap 10 (12-20); Blood Urea Nitrogen 5 mg/dL (9-16); Calcium 8.4 mg/dL (8.4-10.2); Carbon Dioxide 25 mmol/L (22-29); Chloride 109 mmol/L (96-108); Creatinine Clr Calc Pharmacy 129.4; Estimated Glomerular Filt Rate > 60; Glucose Random 112 mg/dL (60-115); Potassium 3.4 mmol/L (3.3-5.1); Sodium 141 mmol/L (135-145)
[2024-06-11 07:53] VITALS: BP 159/92; PULSE 108; RESP 18; TEMP 36.8; O2SAT 97
[2024-06-11] MEDS: Morphine Sulfate 4 MG/ML CARTRIDGE 2 MG IVPUSH ×2 (08:07→12:53)
--- NOTE | 2024-06-11 12:28 | MHC.CM.PN ---
Addendum entered by Gracy Gardner 06/11/24 13:47: PT TO DC HOME TODAY WITH NO SERVICES Original Note: PT REPORTS SHE LIVES WITH HER SPOUSE AND IS INDEPENDENT WITH CARE SHE SAYS SHE IS NOT INTERESTED IN COMPLETING A HCP SHE HAS NO PCP, BROCHURE PROVIDED OBSERVATION NOTICE DELIVERED DCP: HOME VIA PRIVATE TRANSPORT
--- NOTE | 2024-06-11 13:33 | P.DS_ITS ---
DS: Providers Provider Date of Service: 06/11/24 Date of admission: 06/10/24 14:00 Date of discharge: 06/11/24 Primary care physician: Unknown Physician DS: Diagnosis Discharge Diagnosis (1) Cannabinoid hyperemesis syndrome: Status: Resolved (2) Cyclic vomiting syndrome: Status: Acute (3) Intractable vomiting with nausea: Status: Acute DS: Summary Hospital Course Hospital Course: Admission note HPI Pt is a 38-year-old female with a PMH significant for?cannabis hyperemesis syndrome and GERD who presents to the ED with?intractable nausea, vomiting, and abdominal pain since last night. Abdominal pain central and nonradiating, associated with vomiting. No fever or chills. Denies diarrhea. Pt unable to quantify current marijuana use, just saying that she has been smoking ?a lot? recently. Pt has presented to the ED numerous times in the past with similar complaints. Of note, has been admitted to the hospital for cannabis hyperemesis syndrome multiple times but often leaves AMA during the night. Pt denies shortness or breath or difficulty breathing. No cough. Denies chest pain/pressure, palpitations. Pt reports she knows that she should stop smoking marijuana, but has yet to fully commit to that endeavor. In the ED pt with elevated HR of 93 and RR of 22, satting 100% on RA. BP has been stable. Labs were significant for chronic leukocytosis elevated at 23.7. Stable H&H. No significant electrolyte abnormalities. Renal function WNL. Hepatic function WNL. UA negative for UTI. Tox screen positive for benzos and marijuana. Pt was treated in the ED with 2 L IVF, Compazine, midazolam, diazepam, droperidol 1.25 mg and 0.625 mg IV, morphine, and placed on maintenance fluids. Pt is admitted to the hospital under observation for treatment and further evaluation of intractable N/V in the setting of acute cannabis hyperemesis syndrome exacerbation. Hospital course The patient was admitted for treatment of Cannabis hyperemesis syndrome with intractable nausea and vomiting and inability to tolerate PO. Had Multiple prior presentations to the ED with similar symptoms. Advised to quit Marijuana products and was treated with IV fluids, nausea medications with good response as her diet advanced and she was able to tolerate regular diet. To be discharged on Compazine and Capsaicin along with her home medications. Discharge plan Advance diet as tolerated Avoid Marijuana products Time Attestation Discharge Coordination Time (in mins): 27 Quality: Safe Use of Opioids Does Pt have an Active Cancer Diagnosis on the Problem List?: No Quality: Stroke Does the patient have a stroke diagnosis?: No Physical Exam Vital Signs: Vital Signs: Last Vital Signs Temp 98.3 F 06/11/24 07:53 Pulse 108 H 06/11/24 07:53 Resp 18 06/11/24 07:53 BP 159/92 H 06/11/24 07:53 Pulse Ox 97 06/11/24 07:53 O2 Del Method Room Air 06/11/24 07:53 BMI result Body Mass Index 28.4 Const: Other: Constitutional : Awake, interactive, not in distress Neck : Normal inspection, Supple Cardiovascular : RRR, no JVP, no lower extremity edema Respiratory : good bilateral air entry, no crackles, wheezes or rhonchi Gastrointestinal: soft, lax, Normal bowel sounds, Non tender Skin : Warm, Dry Neurological : Alert & oriented x3, No focal deficit DS: Data Data Completed and Pending Labs on day of discharge: Laboratory Results - last 24 hr 06/11/24 05:47 Hold Purple Top SEE NOTE Sodium 141 Potassium 3.4 Chloride 109 H Carbon Dioxide 25 Anion Gap 10 L BUN 5 L Creatinine 0.64 Estim Creat Clear Calc 129.4 Estimated GFR > 60 Random Glucose 112 Calcium 8.4 Discharge Plan Discharge Anticipated Discharge Date/Time: 06/11/24 13:29 Patient Disposition: Home, Self-Care Discharge Diagnosis: Cyclic vomiting Referrals: Physician,Unknown J [Primary Care Provider] - 1 Week Discharge Medications: New ondansetron 4 mg tablet,disintegrating 4 mg PO Q6-8H PRN (Reason: nausea and vomiting) Qty: 7 0RF capsaicin 0.025 % Cream 1 appl topical TID PRN (Reason: Nausea And Vomiting) Qty: 60 1RF Protocol: Apply to: Apply to: Abdomen prochlorperazine maleate 5 mg tablet 5 mg PO Q8H PRN (Reason: nausea and vomiting) Qty: 20 0RF Continued metoprolol succinate 50 mg Tablet Extended Release 24 Hr 50 mg PO DAILY Discharge Orders: Discharge Order (Routine); Ordered 06/11/24 Ordered By: Luigi Ulloa Diet: Advance to usual diet Activity on Discharge: As tolerated Stand Alone Forms: Patient Portal Discharge page Print Language: Tamazight Activity Restrictions/Additional Instructions: Stop using cannabis Medicine for nausea and anxiety as prescribed Care Plan Goals: Advance diet as tolerated Avoid Marijuana products Health Concerns: cyclic vomiting Plan of Treatment: symptomatic measures Assessment: as above Patient Instructions: Cannabis Use Disorder (ED), Cyclic Vomiting Syndrome (ED)
[2024-06-11] MEDS: Metoprolol Succinate ER 50 MG TAB.ER.24H PO (13:51)
== END 2024-06-11 14:05 | disposition home or self-care (01) ==
LOC: HO.ED 08:56 → HO.EDOVER 14:43 → HO.S3 16:01
PROVIDERS: Internal Medicine; Admitting Provider Student in an Organized Health Care Education/Training Program; Emergency Provider Emergency Medicine; Visit Provider Student in an Organized Health Care Education/Training Program
DX: R11.15 Cyclical vomiting syndrome unrelated to migraine (principal); R11.2 Nausea with vomiting, unspecified; F12.90 Cannabis use, unspecified, uncomplicated; K21.9 Gastro-esophageal reflux disease without esophagitis
CPT/HCPCS: 36415; 80048; 80053; 80307; 81003; 81025; 83690; 85025; 96361; 96372; 96374; 96375; 96376; 99221; 99285; J0737; J1790; J2250; J2270; J3360; J7120

== ENCOUNTER → 2024-06-10 14:00 | Outpatient (BNV) | payer OTHER, SELFPAY | PROVIDERS: Admitting Provider Student in an Organized Health Care Education/Training Program; Emergency Provider Emergency Medicine; Visit Provider Student in an Organized Health Care Education/Training Program | DX: R11.2 Nausea with vomiting, unspecified (principal); F12.90 Cannabis use, unspecified, uncomplicated; R11.15 Cyclical vomiting syndrome unrelated to migraine | CPT/HCPCS: 99222; 99238 ==

== ENCOUNTER 2024-08-06 21:32 | Emergency (ER) | payer OTHER, SELFPAY ==
--- NOTE | ~2024-08-06 | XR_ITS ---
CLINICAL HISTORY: fall pain 3 view left ankle Comparison: None provided Findings: No acute fractures. Ankle mortise intact. No ankle effusion. No radiopaque foreign body. IMPRESSION: 1. No acute findings. This document has been electronically signed by: Janeth Santoro MD on 08/06/2024 23:03:23
--- NOTE | ~2024-08-06 | XR_ITS ---
CLINICAL HISTORY: fall pain 3 view left foot Comparison: None provided Findings: No fractures or dislocations. No ankle effusion. No radiopaque foreign body. IMPRESSION: 1. No acute findings. This document has been electronically signed by: Janeth Santoro MD on 08/06/2024 23:04:22
[2024-08-06 21:34] VITALS: BP 137/92; PULSE 20; RESP 16; TEMP 36.7; O2SAT 100; BMI 28.9
--- OUTSIDE RECORDS SUMMARY | 2024-08-06 22:29 | XMS_ITS | Data Portability ---
Author Organization [place] [facility] Address [address] [place] [id number] Assessment Encounter Date Assessment Date Assessment LastModified [...] worsening over a 3 week time frame [place]: neg rapid mono, pt denies any fatigue or missed work Strep: rapid strep A neg, Centor score of 1. URI: unlikely viral cause given length of sx and PE Work up/Results: RSA: neg POC [place]: neg Plan/Discussion: Pt started on amox for [...] Time On Scene with Patient: 00:31:54 vincent Not available 02/18/2019 23:27:43 02/23/2019 02/23/2019 Overview/History : Pt is a 33yo F with PMH sig for Asthma. Pt reports left shoulder pain for the last 3-4 days. Reports pain only with movement. Pt is 7-8/10 with movement. Denies any known recent injury or trauma to the area. 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 In order to obtain further [...] after care of this patient according to [facility]'s infection prevention protocols. Not available 08/14/2020 18:03:08 Plan of Treatment Reminders Order Date Submit Date Provider Last Modified By Organization Details Last Modified Time Details Appointments None recorded. Lab rapid strep group A, throat 2019 020 [employer] [facility], [address] [place], [address], 0 21:20:44 mononucle osis, heterophi le Ab, blood 2019 020 [facility] [facility], [address], [place], [address], 0 21:20:43 Referral None recorded. Procedures None recorded. Surgeries None recorded. Imaging None recorded. Medication Orders diclofena c 1 % topical gel 2020 021 JELANI [facility], [address] [place], [address], 1 17:50:27 prednison e 10 mg tablet 2019 020 [facility]izn[facility], [address] [place], [address], 0 20:15:58 prednison e 20 mg tablet 2019 020 INTERFACE [facility], [address] [place], [address], 0 20:16:03 amoxicill in 875 mg tablet 2019 020 INTERFACE [facility], [address] [place] [address], [address], 0 21:20:48 Patient TargetsNo targets recorded. Patient Instructions Encounter Date Encounter Id Patient Instructions Last Modified By Organization Details Last Modified Time 02/18/2019 [id number] Please seek care immediately if you develop any of the following symptoms: 1. Uncontrolled fever of at least 101 F or 38.4 C 2. Throat pain that is severe or [...] in your condition between 8am-10pm, please call [email or web address] at [phone] to help navigate your care. vincent Not available 02/18/2019 21:21:06 02/23/2019 [id number] shoulder bursiti s: care instructions vincent Not available 02/23/2019 20:15:58 Thank you for yo ur visit with [facility] today. We cannot always find the exact [...] with your primary care provider or specialist as needed to be rechecked or seek medical attention if your symptoms do not go away or get worse. If you develop any new or worsening symptoms and need after hours care, please go to nearest ER and/or call 911. If you have additional concerns or develop a change in your condition between 8am-10pm, please call [facility] at [phone] to help navigate your care. vincent Not available 02/23/2019 20:15:11 Reason for Referral None Reported. Results Created Date Observation Date Name Description Value Unit Range Abnormal Flag Note LastModifiedBy Organization Detail LastModifiedTime 02/18/19 20 02/18/2019 monon ucleo sis, heter ophil e Ab, blood [place] negati ve Not Available [facility] [address] [place], [address], 02/18/2019 21:05:40 02/18/19 20 02/18/2019 monon ucleo sis, heter ophil e Ab, blood Control Visual ized / Valid Not Available [facility] [address] [place], [address], 02/18/2019 21:05:40 02/18/19 20 02/18/2019 rapid strep group A, throa t Strep negati ve Not Available [facility] [address] [place], [address], 02/18/2019 21:00:36 02/18/19 20 02/18/2019 rapid strep group A, throa t Control Visual ized / Valid Not Available [facility] [address] [place], [address], 02/18/2019 21:00:36 Result Notes None recorded. Problems Name Problem SNOMED Code Status Onset Date Resolution Date Notes Provider Name and Address Organization Details Recorded Time Asthma 621364020 Active 020 YUDY MADISON, CULINARY WORKER [address], [place], [address] , [place] [facility] 0 20:59:27 Problem Notes None recorded. Medical Equipment None Reported. Allergies Allergen ID Allergen Name Allergen Category Reaction Reaction Severity Criticality Documentation Date Start Date Code Code System Note Provider Name and Address Organization Details Recorded Time 94830 Dilaudid medicatio n Not available Not available Not available 02/18/2019 35127 3 RxNorm YUDY MADISON , CULINARY WORKER [address], [place], [address], [place] [facility] 0 20:58:39 73829 Reglan medicatio n Not available Not available Not available 02/18/2019 9230 RxNorm YUDY MADISON , CULINARY WORKER [address], [place], [address], [place] [facility] 0 20:58:43 17328 Motrin medicatio n Not available Not available Not available 02/18/2019 57957 8 RxNorm YUDY MADISON , CULINARY WORKER [address], [place], [address], [place] [facility] 0 [...] active Not Available Not Available Not Andre wilhelm oxycodone-a cetaminophe n 5 mg-325 mg tablet [...] /min 122 mm[Hg] 78 mm[Hg] Not Available [facility] 0 20:55:07 Date Recorded Respiratory rate Body temperature Heart rate Oxygen saturation Oxygen saturation in Arterial blood by Pulse oximetry Systolic blood pressure Diastolic blood pressure Provider Name and Address Organization Details Last Updated DateTime 0 16 /min 98.6 [degF] 64 /min 99 % 99 % 116 mm[Hg] 64 mm[Hg] Not Available [facility] 0 20:08:02 Date Recorded Oxygen saturation Oxygen saturation in Arterial blood by Pulse oximetry Body temperature Respiratory rate Heart rate Systolic blood pressure Diastolic blood pressure Provider Name and Address Organization Details Last Updated DateTime 1 99 % 99 % 97.9 [degF] 16 /min 92 /min 108 mm[Hg] 62 mm[Hg] Not Available [facility] 1 17:48:55 Social History Question Answer Notes LastModified by Recorded Future Details LastModified Time Tobacco Smoking Status Former Smoker YUDY MADISON, [place] [address] [place], [address], [place] [facility] 02/18/2019 20:59:52 Do You Have An Advance Directive? No Information not available 02/18/2019 Drugs Abused Past Marijuana Use Information not available 02/18/2019 How Many Days In The Past Year Have You Had A Heavy Drinking Consumption (4+ Female, 5+ Male)? 0 Information not available 02/18/2019 Marital Status Single Informatio n not available 02/18/2019 Sex: Unknown Functional Status Question Answer Note LastModified by Recorded Future Details LastModified Time Do you or have you ever used e-cigarettes or vape? Never used electronic cigarettes Information not available 02/18/2019 Mental Status None recorded. Family History Relationship Description Onset Age of this Age Resolved Age Notes LastModified by Organization Details LastModified Time Mother Hypertensive disorder vincent Not available 02/18 20:59:48 Medical History Condition Response Diabetes N Coronary Artery Disease N Cancer N Stroke N Asthma Y COPD N Depression N High Cholesterol N Pulmonary Embolism N Hypertension N Kidney Disease N Gynecological HistoryNo gynecological history recorded. Obstetrics History GPAL:G 0 P 0 0 0 0 Past Encounters Encounter ID Performer Location Encounter Start Date Encounter Closed Date Diagnosis/Indication Diagnosis SNOMED-CT Code Diagnosis ICD10 Code Diagnosis Note [id number] YUDY LOS, CULINARY WORKER [facility] [address] [employer] [employer] [address] 02/18/2019 20:51:30 02/21/2019 20:24:13 Acute pharyngitis 288399393 J02.9 [id number] YUDY LOS CULINARY WORKER [facility] [address] [place] [address] 02/23/2019 20:03:37 02/24/2019 12:38:15 Bursitis of left shoulder [id number] 72863 M75.52 [id number] JAVIER GEORGE CULINARY WORKER [facility] [address] [employer] [facility] [place] [address] 08/14/2020 17:48:19 08/16/2020 13:59:41 Strain of thoracic region 82746930 S29.019A Health Concerns Section Related Observation LastModified by Organization Detai ls LastModified Time None Recorded Concern Status LastModified by Organization Details LastModified Time None Recorded Advance Directives Directive N: Payers Insurance Date Sequence Insurance Name Policy Number Policy Alas Covered Member ID Alas Member ID Guarantor Name 02/18/2019 1 [place] Felecia Corral [id number] Feleciadeedee Corral 08/14/2020 2 [place] Felecia Corral [id number] Felecia Corral 08/14/2020 1 [place]MED[place]ARE [place]ACEMENT HMO) Felecia Corral [id number] Feleciadeedee Corral 02/18/2019 1 *SELF PAY* Felecia Corral [id number] Felecia Corral 02/18/2019 1 [place] Felecia Corral [id number] Felecia Corral 08/16/2020 1 [place] Feleciadeedee Hatchdez [id number] Felecia Corral 08/16/2020 1 [facility]MEDICAID HMO[facility] [id number] Felecia Corral [id number] Felecia Corral 08/16/2020 1 [place] Felecia Corral [id number] Felecia Corral 08/16/2020 1 [facility] (MEDICAID HMO) [id number] Felecia Corral [id number] Felecia Corral 08/16/2020 1 [facility] (MEDICAID HMO) [id number] Felecia Corral [id number] Felecia Corral Notes Date Note Type Note [...] baseline. YUDY MADISON NP [address], [place], [address], [place] [facility] 02/18/2019 23:27:47 0 text/html Pt reports left shoulder pain, reports it has been hurting for the last 3-4 days. Pt denies any specific injury. 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 Reports pain as 7-8/10 with movement, at rest there is no pain. Pt has been taking APAP without much relief of sx. Reports the pain as feeling sharp. Reports pain to the anterior shoulder, states that area is tender to touch as well. YUDY MADISON NP [address], [place], [address], [place] [facility] 02/23/2019 20:31: text/html This is a 34-year-old female that is known to [email or web address] but new to this provider. She has a medical history significant for asthma. 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 JAVIER GEORGE, [place] [address], [place], [address], [place] [facility] 08/14/2020 18:10:14 OBGyn Episode No OBEpisode recorded.
--- NOTE | 2024-08-07 00:18 | ED.GENADULT ---
HPI - General Adult General Chief complaint: Extremity Injury, Lower Stated complaint: left foot hurting Time Seen by Provider: 08/06/24 23:23 Source: patient Limitations: no limitations History of Present Illness ED Provider: Ashley Fulton PA-C HPI narrative: 38-year-old female presents with left foot pain. Patient states she was at 6 flags, she was walking down steps, missed a step landing on her foot. Now with the pain along lateral aspect of the foot. She is nonweightbearing. Related Data Home Medications ?Medication ?Instructions ?Recorded ?Confirmed metoprolol succinate 50 mg 50 mg PO DAILY 04/24/24 06/10/24 tablet,extended release 24 hr Previous Rx's ?Medication ?Instructions ?Recorded ondansetron 4 mg disintegrating 4 mg PO Q6-8H PRN nausea and 06/10/24 tablet vomiting #7 tabs capsaicin 0.025 % topical cream 1 appl topical TID PRN Nausea And 06/11/24 Vomiting #60 grams prochlorperazine maleate 5 mg 5 mg PO Q8H PRN nausea and 06/11/24 tablet vomiting #20 tabs methocarbamol 750 mg tablet 750 mg PO Q8H PRN pain #15 tabs 08/07/24 methylprednisolone 4 mg tablets in 4 mg PO QAM #21 ea 08/07/24 a dose pack (Medrol (Timothy)) Allergies Allergy/AdvReac Type Severity Reaction Status Date / Time hydromorphone (Dilaudid) Allergy Unknown hives Verified 08/06/24 21:36 metoclopramide (From Reglan) Allergy Unknown Verified 08/06/24 21:36 ibuprofen (From MOTRIN) AdvReac Mild STOMACH Verified 08/06/24 21:36 UPSET Review of Systems Review of Systems: Yes all other systems are reviewed and are negative Constitutional: Constitutional: Denies fatigue and Denies fever(s) Musculoskeletal: Musculoskeletal: Reports arthralgias and Denies joint swelling Endocrine: Endocrine: Denies fatigue PMF Past Medical History Attestation statement: The following information was validated with the patient. Medical History Shortness of breath Sinus tachycardia Cyclical vomiting Anxiety Ureteric calculus Family History Family History Father Heart disease Other Hypokalemia Social History Social History Household Members: Spouse and Children Housing: House Do you presently have visiting nurse or other home services: No Alcohol intake: never Patient Tobacco Use Status: Never used Tobacco Substance Use Type: Marijuana Advance Directives: No Advance Directives Information Provided: No Do you have a plan to hurt others: No Plan service: No Physical Exam ED Vital Signs: Vital Signs - 24 hr 08/06/24 21:34 Temperature 98.1 F Pulse Rate 20 L Respiratory Rate 16 Blood Pressure 137/92 H Pulse Oximetry 100 Oxygen Delivery Method Room Air BMI result Body Mass Index 28.9 Const Other: Alert well-appearing Orientation/consciousness: patient oriented x3 Resp Effort & Inspection: normal respiratory effort Cardio Other: Normal peripheral perfusion Skin Other: Warm dry no rash Neuro General: patient oriented x3, no focal motor deficits and CN's II-XI intact bilaterally Extrem Other: No deformity noted over the left foot, Psych Other: Cooperative Medical Decision Making Medical Decision Making MDM Narrative: 38-year-old female presents with left foot pain. Patient states she was at 6 flags, she was walking down steps, missed a step landing on her foot. Now with the pain along lateral aspect of the foot. She is non weightbearing. No chronic issues History: Per patient I have considered the following differential diagnoses: Fracture, dislocation, contusion, sprain Plan: X-rays ordered from triage, there was no fracture or dislocation we will treat her for a sprain. Placing in a postop shoe, sending with crutches and pain meds. She is driving so she can not have any analgesia here I have independently reviewed the following tests: X-ray left foot: Findings: No fractures or dislocations. No ankle effusion. No radiopaque foreign body. IMPRESSION: 1. No acute findings. X-ray left ankle: Findings: No acute fractures. Ankle mortise intact. No ankle effusion. No radiopaque foreign body. IMPRESSION: 1. No acute findings. Discharge Plan Discharge Clinical Impression: Left ankle sprain Patient Disposition: Home, Self-Care Instructions: Ankle Sprain (ED), P.R.I.C.E. Treatment (ED), Walking Boot (ED) Additional Instructions: X-rays were negative of the foot and ankle for fracture or dislocation, you have a sprain. See home care instructions. Use the methocarbamol as needed for pain, this is a muscle relaxant, it will cause drowsiness, do not drive or operate machinery while taking the medication. You need an anti-inflammatory, take the Medrol Dosepak as directed. Take it in the morning. Follow up with your primary care provider as needed. Prescriptions: New methylprednisolone [Medrol (Timothy)] 4 mg tablets,dose pack 4 mg PO QAM Qty: 21 0RF Rx Instructions: Take per package instructions methocarbamol 750 mg tablet 750 mg PO Q8H PRN (Reason: pain) Qty: 15 0RF No Action ondansetron 4 mg tablet,disintegrating 4 mg PO Q6-8H PRN (Reason: nausea and vomiting) Qty: 7 0RF capsaicin 0.025 % Cream 1 appl topical TID PRN (Reason: Nausea And Vomiting) Qty: 60 1RF Protocol: Apply to: Apply to: Abdomen prochlorperazine maleate 5 mg tablet 5 mg PO Q8H PRN (Reason: nausea and vomiting) Qty: 20 0RF metoprolol succinate 50 mg Tablet Extended Release 24 Hr 50 mg PO DAILY Print Language: Belarusian
[2024-08-07 00:50] VITALS: BP 137/92; PULSE 20; RESP 16; TEMP 36.7; O2SAT 100
== END 2024-08-07 00:51 | disposition home or self-care (01) ==
PROVIDERS: Emergency Provider Emergency Medicine
DX: S93.402A Sprain of unspecified ligament of left ankle, initial encounter (principal); X58.XXXA Exposure to other specified factors, initial encounter; Y93.9 Activity, unspecified; Y92.9 Unspecified place or not applicable; Y99.8 Other external cause status
CPT/HCPCS: 73610; 73630; 99283

== ENCOUNTER → 2024-08-06 22:00 | Outpatient (BNV) | payer OTHER, SELFPAY | PROVIDERS: Visit Provider Radiology Diagnostic Radiology | DX: M25.572 Pain in left ankle and joints of left foot (principal); M79.672 Pain in left foot; W19.XXXA Unspecified fall, initial encounter | CPT/HCPCS: 73610; 73630 ==

== ENCOUNTER 2024-08-11 18:26 | Emergency (ER) | payer OTHER, SELFPAY ==
--- NOTE | ~2024-08-11 | XR_ITS ---
CLINICAL HISTORY: SOB 2 view chest x-ray Comparison: CR/SD/SR - XR CHEST 1V - 08/06/23 03:49 EDT Findings: No consolidation or effusion. Heart size is normal. No acute fracture. IMPRESSION: 1. No acute findings. This document has been electronically signed by: Janeth Santoro MD on 08/11/2024 19:14:00
[2024-08-11 18:27] VITALS: BP 140/69; PULSE 106; RESP 18; TEMP 36.6; O2SAT 100; BMI 26.8
--- NOTE | 2024-08-11 18:30 | ED_ITS ---
HPI - General Adult General Chief complaint: Chest Pain Stated complaint: SOB, sharp pain on left side chest, Nausea, dizzy Time Seen by Provider: 08/11/24 19:07 Source: patient Mode of arrival: ambulatory Limitations: no limitations History of Present Illness ED Provider: Som CARTER HPI narrative: The patient is a 38-year-old female with history of H pylori, UTIs, and unspecified tachycardia for which she is followed by Cardiology and supposed to be taking metoprolol, presenting to the ED for evaluation of waxing and waning substernal chest pain which radiates to the left chest with associated shortness of breath without associated cough, hemoptysis, or pleurisy. Patient reports symptoms have been ongoing for the past 1-2 weeks but became more severe today. Patient is unable to identify any exacerbating factors, denies correlation with lying down, p.o. intake, or activity level. The patient denies associated fever/chills, vomiting, diarrhea, hematuria, urinary symptoms, recent sick contacts, or recent trauma. The patient reports she has been noncompliant with her metoprolol for the past few months as she has forgotten to take it, however arrived to the ED without significant tachycardia. The patient reports history of H pylori a number of years ago however reports this presented with severe vomiting and nausea. The patient has not taken any medications for her symptoms. Related Data Home Medications ?Medication ?Instructions ?Recorded ?Confirmed metoprolol succinate 50 mg 50 mg PO DAILY 04/24/2405/02 tablet,extended release 24 hr Previous Rx's ?Medication ?Instructions ?Recorded ondansetron 4 mg disintegrating 4 mg PO Q6-8H PRN naus ea and 06/10/24 tablet vomiting #7 tabs capsaicin 0.025 % topical cream 1 appl topical TID PRN Nausea And 06/11/24 Vomiting #60 grams prochlorperazine maleate 5 mg 5 mg PO Q8H PRN nausea a nd 06/11/24 tablet vomiting #20 tabs methocarbamol 750 mg tablet 750 mg PO Q8H PRN pain #15 tabs 08/07/24 methylprednisolone 4 mg tablets in 4 mg PO QAM #21 ea 08/07/24 a dose pack (Medrol (Timothy)) famotidine 20 mg tablet (Pepcid) 20 mg PO BID #28 tabs 08/11/24 Allergies Allergy/AdvReac Type Severity Reaction Status Date / Time hydromorphone (Dilaudid) Allergy Unknown hives Verified 08/11/24 18:28 metoclopramide (From Reglan) Allergy Unknown Verified 08/11/24 18:28 ibuprofen (From MOTRIN) AdvReac Mild STOMACH Verified 08/11/24 18:28 UPSET Review of Systems 2 Review of Systems: Yes all other systems are reviewed and are negative PMFSH Past Medical History Medical History Shortness of breath Sinus tachycardia Cyclical vomiting Anxiety Ureteric calculus Family History Family History Father Heart disease Other Hypokalemia Social History Social History Household Members: Spouse and Children Housing: House Do you presently have visiting nurse or other home services: No Alcohol intake: never Patient Tobacco Use Status: Never used Tobacco Smoked in Last 30 Days: Yes Use of substances other than those prescribed or required for medical reasons: Yes Substance Use Type: Marijuana Substance Use Frequency: Daily Last Used Substance: Hours (ago) Advance Directives: No Advance Directives Information Provided: No Patient : No service: No Physical Exam ED Vital Signs: Vital Signs - 24 hr 08/11/24 18:27 08/11/24 18:58 08/11/24 20:37 Temperature 98 F 98.3 F 98.5 F Pulse Rate 106 H 75 65 Respiratory Rate 18 24 H 18 Blood Pressure 140/69 H 119/64 110/57 L Pulse Oximetry 100 100 100 Oxygen Delivery Method Room Air Room Air Room Air BMI result Body Mass Index 26.8 CONSTITUTIONAL: The patient appears uncomfortable but otherwise non-toxic, well nourished and in no acute distress. Vital signs as documented. HEAD: Atraumatic, normocephalic. EYES: EOMs grossly intact, pupils equal, conjunctiva clear, no exudate. ENT: Nares patent, no discharge. Airway patent, no audible stridor, visible mucosa is pink and moist without noted lesions. NECK: Trachea is midline, no obvious masses or gross abnormalities. CHEST: Symmetric movement, normal appearance. Pain is not reproducible with palpation or deep respiration. LUNGS: LS present and CTAB, no w/r/r. Non-labored work of breathing. CARDIAC: Regular Rhythm, S1/S2 appreciated, no murmurs, rubs or gallops. ABDOMEN: Abdomen soft and non-tender x4 quadrants, no palpable masses or organomegaly. No CVAT bilaterally. : Deferred. EXTREMITIES: Normal tone, moves all extremities spontaneously without reported pain. No obvious acute injury or deformity noted. NEURO: Alert and oriented x3, CN II-XII appear grossly intact. Cerebellar Functioning grossly intact. No obvious sensory or motor deficits. Speech clear and appropriate. PSYCH: normal affect, appropriate eye contact, fluid speech, with appropriate response to questioning. No reported suicidality or homicidality. SKIN: Warm, dry, color appropriate, normal turgor. No rashes noted. Course Course Course Narrative: This is an RME: Additional HPI, ROS, PE not included below will be deferred to primary provider. RME assessment and note performed by: Erika Duke PA-C This is a [id number]-female who presents to the ER with complaints of SOB and CP. Reports that CP started this morning and has been worsening throughout the day. Reports that she was previously taking metoprolol but has been forgetting . 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 No recent travel, surgeries hospitalizations, sick contacts or control. Plan: Labs, EKG, CXR, further ER eval needed Medications Administered Discontinued Medications Generic Name Dose Route Start Last Admin Trade Name Freq PRN Reason Stop Dose Admin Al Hydroxide/Mg Hydroxide 30 ml 08/11/24 19:58 08/11/24 20:04 Magnesium Hydrox/Alum Hydrox 30 Ml Oral.Susp PO 08/11/24 19:59 30 ml ONCE ONE Administration Famotidine 20 mg 08/11/24 19:58 08/11/24 20:04 Famotidine 20 Mg Tablet PO 08/11/24 19:59 20 mg ONCE ONE Administration Lidocaine HCl 15 ml 08/11/24 19:58 08/11/24 20:04 Lidocaine Hcl Viscous 2 % 15 Ml Solution PO 08/11/24 19:59 15 ml ONCE ONE Administration Medical Decision Making Medical Decision Making MDM Narrative: 8:23 PM 08/11/2024 (Milo CARTER): The patient is a 38-year-old female presenting to the ED for evaluation of substernal chest pain radiating into the left chest without obvious causative or exacerbating factors, symptoms have been ongoing for the past 1-2 weeks but increased today prompting ED evaluation. In the ED patient's exam is benign, no abdominal tenderness, no pleurisy. The patient's laboratory evaluation thus far is reassuring, troponin is negative, EKG is nonischemic, COVID/flu/RSV swab negative, lipase normal, no LFT abnormalities, CBC shows mild leukocytosis of 15,000 however compared to previous patient has chronic leukocytosis, no evidence of acute anemia. No electrolyte abnormality or RADHAMES. Chest x-ray shows no focal consolidation or other acute cardiopulmonary process. The patient has a history of exertional tachycardia and is not compliant with her metoprolol, tachycardia noted earlier today upon initial presentation is not sustained in the ED, patient is PERC negative. We will give GI cocktail to assess for gastritis based pathology. We will repeat troponin. 10:05 PM 08/11/2024 (Milo CARTER): The patient was ordered for repeat troponin however RN has informed this provider that the patient does not wish to wait for a repeat troponin and is requesting to be discharged. Patient reports she has had some improvement in symptoms following GI cocktail, is hungry and wants to go eat. Given the patient's reassuring exam, laboratory workup, chest x-ray, nonischemic EKG, negative initial troponin in the setting of greater than 1 week of symptoms, and some improvement in symptoms following GI cocktail, a cardiac pathology is highly unlikely, patient will be discharged per her request. We will discharge with a course of Pepcid and outpatient follow up. Admission/Observation Consideration of admission/observation: Escalation of care including admission/observation considered Lab Data MDM Lab Attestation statement: I reviewed the patient's lab results. 08/11/24 19:04 08/11/24 19:04 Labs: Lab Results 08/11/24 08/11/24 Range/Units 19:04 20:36 WBC 15.3 H (4.8-10.8) X10*3/uL RBC 4.82 (4.20-5.50) X10*6/uL Hgb 11.9 L (12.0-16.0) g/dl Hct 35.4 L (37.0-47.0) % MCV 73.4 L (80.0-98.0) fL MCH 24.7 L (27.0-33.0) pg MCHC 33.6 (31.0-35.0) g/dl RDW 15.5 (11.0-16.0) % Plt Count 261 (160-400) X10*3/uL MPV 11.5 (9.4-12.3) fL Immature Gran % (Auto) 0.3 (0.0-0.4) % Neut % (Auto) 63.4 (45-73) % Lymph % (Auto) 29.7 (20-40) % [place] % (Auto) 5.5 (2-11) % Eos % (Auto) 0.6 (0-4) % Baso % (Auto) 0.5 (0-2) % Lymph # (Auto) 4.6 (1.2-4.9) X10*3/uL [place] # (Auto) 0.8 (0.1-1.2) X10*3/uL Eos # (Auto) 0.1 (0.0-0.4) X10*3/uL Baso # (Auto) 0.1 (0.0-0.2) X10*3/uL Abs Immat Gran (auto) 0.05 H (0.00-0.03) X10*3/uL Absolute Neuts (auto) 9.7 H (2.0-8.3) x10*3/uL Absolute Nucleated RBC 0.000 (0.0-0.012) X10*3/uL Nucleated RBC % (auto) 0.0 (0.0-0.2) /100WBC Sodium 140 (135-145) mmol/L Potassium 3.4 (3.3-5.1) mmol/L Chloride 111 H (96-108) mmol/L Carbon Dioxide 19 L (22-29) mmol/L Anion Gap 13 (12-20) BUN 20 H (9-16) mg/dL Creatinine 0.95 (0.5-1.4) mg/dL Estim Creat Clear Calc 91.0 Estimated GFR > 60 Random Glucose 108 (60-115) mg/dL Calcium 9.1 D (8.4-10.2) mg/dL Magnesium 1.9 (1.6-2.6) mg/dL Total Bilirubin 0.3 (0.0-1.0) mg/dL Direct Bilirubin 0.1 (0.0-0.5) mg/dL AST 12 (5-31) U/L ALT 12 (0-31) U/L Alkaline Phosphatase 51 (39-117) U/L Troponin I High Sens 2.8 (<3.5-17.0) ng/L Total Protein 6.6 (6.5-8.0) g/dL Albumin 4.2 (3.5-5.0) g/dL Lipase 17 (8-78) U/L Urine Color Yellow Urine Appearance Clear Urine pH 7.0 (5.0-9.0) Ur Specific [place] 1.025 (1.005-1.025) Urine Protein Trace (Neg-Trace) mg/dL Urine Glucose (UA) Negative (Negative) mg/dL Urine Ketones Negative (Negative) mg/dL Urine Blood Trace H (Negative) Urine Nitrite Negative (Negative) Ur Leukocyte Esterase Trace H (Negative) Urine RBC 0-2 (0-2) /HPF Urine WBC 0-5 (0-5) /HPF Ur Squamous Epith Cells 3-5 (0-2) /HPF Calcium Oxalate Crystal Present Other Crystals Present Urine Bacteria None Seen (None Seen) Hyaline Casts 3-5 (0-2) /LPF Influenza Type A (PCR) NEGATIVE (Negative) Influenza Type B (PCR) NEGATIVE (Negative) RSV RNA Qual (PCR) NEGATIVE (Negative) SARS-CoV-2 RNA (RT-PCR) NEGATIVE (Negative) Independent Interpretation I performed an independent interpretation of an: EKG (EKG shows sinus rhythm with a rate of 94, no evidence of acute ischemia, no ST elevation, no ectopy. QTC 445. Compared to previous on 04/28/2024 there is resolution of previously noted inferior nonspecific T-wave abnormalities. No other acute morphology changes.) Radiology Impression Discussion of test interpretation with radiology: I have reviewed the radiologist's reading. Radiologist Impression: CLINICAL HISTORY: SOB 2 view chest x-ray Comparison: CR/ND/SR - XR CHEST 1V - 08/06/23 03:49 EDT Findings: No consolidation or effusion. Heart size is normal. No acute fracture. IMPRESSION: 1. No acute findings. This document has been electronically signed by: Janeth Santoro MD on 08/11/2024 19:14:00 Discharge Plan Discharge Clinical Impression: Atypical chest pain Patient Disposition: Home, Self-Care Instructions: Chest Pain (ED), Gastritis (ED), Noncardiac Chest Pain (ED), Chest Wall Pain (ED) Additional Instructions: Thank you for choosing [facility] Emergency Department for your care today. Your exam, chest x-ray, EKG, laboratory evaluation, and cardiac enzyme today are all reassuring. At this time there is no evidence of an acute process requiring admission to the hospital or continued ED observation, and it is safe to discharge you home. Your symptoms did improve slightly after a GI cocktail, this may indicate that your symptoms are related to inflammation of your stomach. Please take Pepcid twice daily for the next 2 weeks as prescribed. Please stay well hydrated and get plenty of rest, please avoid triggering foods for gastritis such as acidic foods, tomato based products, caffeinated beverages, and chocolate. Please avoid large meals and eating within 1 hour of lying down to go to bed. Please follow up with your primary care physician for re-evaluation, additional management of your symptoms, and continued preventative care. If you do not have a primary care physician, please call the [facility] at [phone] to establish a new primary care physician. While waiting to establish your new primary care physician, you can call our [facility] at [phone] for non-emergency needs. Please return to the emergency department if you develop a severe or sudden change in your symptoms, a fever over 100.4 that does not improve with Tylenol or Ibuprofen, recurrent vomiting, or any other new or worsening symptoms or concerns. Prescriptions: New famotidine [Pepcid] 20 mg tablet 20 mg PO BID Qty: 28 0RF No Action ondansetron 4 mg tablet,disintegrating 4 mg PO Q6-8H PRN (Reason: nausea and vomiting) Qty: 7 0RF capsaicin 0.025 % Cream 1 appl topical TID PRN (Reason: Nausea And Vomiting) Qty: 60 1RF Protocol: Apply to: Apply to: Abdomen prochlorperazine maleate 5 mg tablet 5 mg PO Q8H PRN (Reason: nausea and vomiting) Qty: 20 0RF methylprednisolone [Medrol (Timothy)] 4 mg tablets,dose pack 4 mg PO QAM Qty: 21 0RF Rx Instructions: Take per package instructions methocarbamol 750 mg tablet 750 mg PO Q8H PRN (Reason: pain) Qty: 15 0RF metoprolol succinate 50 mg Tablet Extended Release 24 Hr 50 mg PO DAILY Print Language: Slovenian
--- NOTE | 2024-08-11 18:31 | ECG_ITS ---
Test Reason : CHEST PAIN Blood Pressure : */* mmHG Vent. Rate : 94 BPM Atrial Rate : 94 BPM P-R Int : 132 ms QRS Dur : 86 ms QT Int : 356 ms P-R-T Axes : 32 11 55 degrees QTcB Int : 445 ms Normal sinus rhythm Normal ECG When compared with ECG of 28-Apr-2024 02:44, Nonspecific T wave abnormality no longer evident in Inferior leads Referred By: Erika Duke Electronically Signed By: MARIAELENA DOE MD
[2024-08-11 18:58] VITALS: BP 119/64; PULSE 75; RESP 24; TEMP 36.8; O2SAT 100
[2024-08-11 19:12] LABS: MANUAL DIFF FLAG NO
[2024-08-11 19:20] LABS: Hematocrit 35.4 % (37.0-47.0); Hemoglobin 11.9 g/dl (12.0-16.0); Imm Gran Abs Auto 0.05 X10*3/uL (0.00-0.03); Imm Gran Pct Auto 0.3 % (0.0-0.4); Lymphocytes Absolute Auto 4.6 X10*3/uL (1.2-4.9); Mean Corpuscular HGB Conc 33.6 g/dl (31.0-35.0); Mean Corpuscular Hemoglobin 24.7 pg (27.0-33.0); Mean Corpuscular Volume 73.4 fL (80.0-98.0); NRBC Abs Auto 0.000 X10*3/uL (0.0-0.012); NRBC Pct Auto 0.0 /100WBC (0.0-0.2); Platelet Count 261 X10*3/uL (160-400); Red Blood Count 4.82 X10*6/uL (4.20-5.50); White Blood Count 15.3 X10*3/uL (4.8-10.8)
[2024-08-11 19:30] LABS: Alanine Aminotransferase 12 U/L (0-31); Albumin Level 4.2 g/dL (3.5-5.0); Alkaline Phosphatase 51 U/L (39-117); Anion Gap 13 (12-20); Aspartate Amino Transferase 12 U/L (5-31); Blood Urea Nitrogen 20 mg/dL (9-16); Calcium 9.1 mg/dL (8.4-10.2); Carbon Dioxide 19 mmol/L (22-29); Chloride 111 mmol/L (96-108); Creatinine Clr Calc Pharmacy 91.0; Estimated Glomerular Filt Rate > 60; Lipase 17 U/L (8-78); Magnesium 1.9 mg/dL (1.6-2.6); Potassium 3.4 mmol/L (3.3-5.1); Sodium 140 mmol/L (135-145); Total Protein 6.6 g/dL (6.5-8.0)
[2024-08-11 19:37] LABS: Troponin-I High Sensitivity 2.8 ng/L (<3.5-17.0)
[2024-08-11 19:53] LABS: Resp Syncy Virus RNA Qual PCR NEGATIVE (Negative); SARS COV2 PCR INHOUSE NEGATIVE (Negative)
[2024-08-11] MEDS: Lidocaine HCl Viscous 2 % 15 ML SOLUTION PO (20:04)
[2024-08-11] MEDS: Magnesium Hydrox/Alum Hydrox 30 ML ORAL.SUSP PO (20:04)
[2024-08-11 20:37] VITALS: BP 110/57; PULSE 65; RESP 18; TEMP 36.9; O2SAT 100
[2024-08-11 20:45] LABS: Appearance Urine Clear; Glucose Urine UA Negative (Negative); PH 7.0 (5.0-9.0); Specific Gravity - Urine 1.025 (1.005-1.025); UMIC TRIGGER UACC YES
[2024-08-11 21:02] LABS: Other Crystals Urine Present
[2024-08-11 23:03] VITALS: BP 125/74; PULSE 78; RESP 16; TEMP 36.8; O2SAT 100
== END 2024-08-11 22:30 | disposition home or self-care (01) ==
PROVIDERS: Physician Assistant Medical; Emergency Provider Internal Medicine; PCP Nurse Practitioner Family
DX: R07.89 Other chest pain (principal); R11.2 Nausea with vomiting, unspecified; R42 Dizziness and giddiness; R06.02 Shortness of breath; R05.9 Cough, unspecified; Z91.148 Patient's other noncompliance with medication regimen for other reason; Z79.899 Other long term (current) drug therapy; Z03.818 Encounter for observation for suspected exposure to other biological agents ruled out
CPT/HCPCS: 71046; 80048; 80076; 81001; 83690; 83735; 84484; 85025; 87637; 93005; 99283; 99284

== ENCOUNTER → 2024-08-11 18:31 | Outpatient (BNV) | payer OTHER, SELFPAY | PROVIDERS: Emergency Provider Internal Medicine; PCP Nurse Practitioner Family; Visit Provider Internal Medicine Cardiovascular Disease | DX: R07.89 Other chest pain (principal) | CPT/HCPCS: 93010 ==

== ENCOUNTER → 2024-08-11 18:34 | Outpatient (BNV) | payer OTHER, SELFPAY | PROVIDERS: Visit Provider Radiology Diagnostic Radiology | DX: R06.02 Shortness of breath (principal) | CPT/HCPCS: 71046 ==

== ENCOUNTER 2024-08-18 17:03 | Emergency (ER) | payer OTHER, SELFPAY ==
--- NOTE | ~2024-08-18 | XR_ITS ---
CLINICAL HISTORY: Left sided chest pain 2 view chest x-ray Comparison: Chest x-ray from 08/11/2024 Findings: No consolidation, pneumothorax, or pleural effusion. Imaged mediastinum and imaged osseous structures appear unchanged. No acute fracture. IMPRESSION: No consolidation. This document has been electronically signed by: Darrel Andrews MD on 08/18/2024 20:16:40
[2024-08-18 17:24] VITALS: BP 133/76; PULSE 93; RESP 16; TEMP 36.6; O2SAT 100; BMI 29.0
--- NOTE | 2024-08-18 17:27 | ED_ITS ---
HPI - General Adult General Chief complaint: Chest Pain Stated complaint: Chest pain.lt arm tingly Time Seen by Provider: 08/18/24 18:57 History of Present Illness ED Provider: Daquan KUMAR narrative: The patient is a 38-year-old female who has a history of multiple emergency room visits for a variety of complaints. She says that she has a a history of tachycardia in his prescribed metoprolol although she does not always take it. She says that she has been having chest pain mostly in the left side of her chest and radiating down her left arm. She has been having this pain for about a week. She says it is not associated with any changes when she eats. She has had no fever. She has had no abdominal pain. She has had no pain in her legs. She denies being under lot of stress. She says that she has been a smoker but recently stopped smoking. With regard to family history the patient says that her father is alive and in his 60s or 70s. He has some kind of heart issues but she does not believe that he has ever had a heart attack. Her mother of an overdose at approximately age 48 or 49. She had no history of heart attacks. She says that she has a grandparents who had heart attacks in their 80s. Related Data Home Medications ?Medication ?Instructions ?Recorded ?Confirmed metoprolol succinate 50 mg 50 mg PO DAILY 04/24/2405/02 tablet,extended release 24 hr Previous Rx's ?Medication ?Instructions ?Recorded ondansetron 4 mg disintegrating 4 mg PO Q6-8H PRN naus ea and 06/10/24 tablet vomiting #7 tabs capsaicin 0.025 % topical cream 1 appl topical TID PRN Nausea And 06/11/24 Vomiting #60 grams prochlorperazine maleate 5 mg 5 mg PO Q8H PRN nausea a nd 06/11/24 tablet vomiting #20 tabs methocarbamol 750 mg tablet 750 mg PO Q8H PRN pain #15 tabs 08/07/24 methylprednisolone 4 mg tablets in 4 mg PO QAM #21 ea 08/07/24 a dose pack (Medrol (Timothy)) famotidine 20 mg tablet (Pepcid) 20 mg PO BID #28 tabs 08/11/24 Allergies Allergy/AdvReac Type Severity Reaction Status Date / Time hydromorphone (Dilaudid) Allergy Unknown hives Verified 08/18/24 17:24 metoclopramide (From Reglan) Allergy Unknown Verified 08/18/24 17:24 ibuprofen (From MOTRIN) AdvReac Mild STOMACH Verified 08/18/24 17:24 UPSET PMFSH Past Medical History Medical History Shortness of breath Sinus tachycardia Cyclical vomiting Anxiety Ureteric calculus Family History Family History Father Heart disease Other Hypokalemia Social History Social History Household Members: Spouse and Children Housing: House Do you presently have visiting nurse or other home services: No Alcohol intake: never Patient Tobacco Use Status: Never used Tobacco Substance Use Type: Marijuana Advance Directives: No Advance Directives Information Provided: No Do you have a plan to hurt others: No Plan service: No Physical Exam ED Vital Signs: Vital Signs - 24 hr 08/18/24 17:24 08/18/24 19:09 08/18/24 20:26 Temperature 97.8 F 98.7 F 98.7 F Pulse Rate 93 80 80 Respiratory Rate 16 16 16 Blood Pressure 133/76 132/74 132/74 Pulse Oximetry 100 99 99 Oxygen Delivery Method Room Air Room Air Room Air BMI result Body Mass Index 29.0 Const Other: The patient is awake and alert. She looks mildly apprehensive. She does not seem in obvious discomfort or distress however. Orientation/consciousness: patient oriented x3 HENMT Other: The face is symmetrical. ?Mucous membranes moist. Eyes Other: Pupils are round equal, conjunctivae are clear, extraocular movements intact General: appearance normal, both eyes and all related structures Neck Neck: Yes normal visual inspection, Yes full ROM, Yes no lymphadenopathy and Yes no JVD Chest Other: No obvious chest wall tenderness. No obviously reproducible pain. Resp Effort & Inspection: normal respiratory effort Auscultation: clear to auscultation bilaterally Cardio Other: At the time that I examined the patient her heart rate was in the low 70s Rate: regular rate Rhythm: regular rhythm Heart sounds: S1 normal heart sound present and S2 normal heart sound present GI Other: Abdomen is soft and nontender Skin Other: The skin is dry and unremarkable General skin exam: no rashes or lesions noted Neuro General: patient oriented x3, gait normal, tone normal, moves all extremities, no focal motor deficits and CN's II-XI intact bilaterally Extrem Other: There is no calf swelling or tenderness. No asymmetry. No peripheral edema. Course Course Course Narrative: RME, this is a rapid medical exam performed by Fer Hernandez please refer to primary provider for complete H&P- 38-year-old female presents for evaluation of chest pain with numbness and tingling in both arms. Symptoms started 1 week ago and have been worsening since this morning. Plan for cardiac workup Medications Administered Discontinued Medications Generic Name Dose Route Start Last Admin Trade Name Freq PRN Reason Stop Dose Admin Ketorolac Tromethamine 30 mg 08/18/24 19:10 08/18/24 19:26 Ketorolac Tromethamine 30 Mg/Ml Vial IM 08/18/24 19:11 30 mg ONCE ONE Administration Medical Decision Making Medical Decision Making [facility] Narrative: The patient is a 38-year-old woman presents for evaluation of left-sided chest pain that has been present for a week. She says the pain radiates down her left arm. She does not really indicate respiratory symptoms. No cough or sputum. No significant pleuritic component to the pain. No significant shortness of breath. She has an EKG that shows sinus tachycardia with no significant ischemic changes. She has an undetectable troponin after 1 week of constant symptoms. She has an undetectable D-dimer. She has a negative chest x-ray. She is saturating 100% on room air. She has a white count of 12.1. She seems to consistently run a mildly elevated white blood count. She has a normal differential. My overall impression is that the patient is not acutely ill. She has a negative chest x-ray, unremarkable EKG and a negative troponin after 1 week of symptoms, and an undetectable D-dimer. Clinically she does not appear ill. The patient denies being under stress. She reports that she got little or no relief from IM ketorolac. Overall I suspect that this pain syndrome is probably either musculoskeletal or related distress but she did not wish to speak about anything stress related. She has a history of multiple emergency room visits in the past, often for cannabis hyperemesis. She seemed to feel comfortable being discharged. I did not feel there was any indication for a care team evaluation. She does not have a primary care doctor. She was given contact information for multiple local primary care offices.. Lab Data 08/18/24 18:14 08/18/24 18:14 Labs: Lab Results 08/18/24 08/18/24 Range/Units 18:14 19:31 WBC 12.1 H (4.8-10.8) X10*3/uL RBC 4.69 (4.20-5.50) X10*6/uL Hgb 11.7 L (12.0-16.0) g/dl Hct 35.0 L (37.0-47.0) % MCV 74.6 L (80.0-98.0) fL MCH 24.9 L (27.0-33.0) pg MCHC 33.4 (31.0-35.0) g/dl RDW 15.9 (11.0-16.0) % Plt Count 269 (160-400) X10*3/uL MPV 11.4 (9.4-12.3) fL Immature Gran % (Auto) 0.2 (0.0-0.4) % Neut % (Auto) 57.5 (45-73) % Lymph % (Auto) 33.8 (20-40) % Rice % (Auto) 6.8 (2-11) % Eos % (Auto) 1.2 (0-4) % Baso % (Auto) 0.5 (0-2) % Lymph # (Auto) 4.1 (1.2-4.9) X10*3/uL Rice # (Auto) 0.8 (0.1-1.2) X10*3/uL Eos # (Auto) 0.2 (0.0-0.4) X10*3/uL Baso # (Auto) 0.1 (0.0-0.2) X10*3/uL Abs Immat Gran (auto) 0.03 (0.00-0.03) X10*3/uL Absolute Neuts (auto) 7.0 (2.0-8.3) x10*3/uL Absolute Nucleated RBC 0.000 (0.0-0.012) X10*3/uL Nucleated RBC % (auto) 0.0 (0.0-0.2) /100WBC D-Dimer High Sensitivty < 150 NG/ML Sodium 141 (135-145) mmol/L Potassium 3.4 (3.3-5.1) mmol/L Chloride 108 (96-108) mmol/L Carbon Dioxide 26 (22-29) mmol/L Anion Gap 10 L (12-20) BUN 14 (9-16) mg/dL Creatinine 0.99 (0.5-1.4) mg/dL Estim Creat Clear Calc 87.4 Estimated GFR > 60 Random Glucose 84 (60-115) mg/dL Calcium 9.0 (8.4-10.2) mg/dL Magnesium 2.2 (1.6-2.6) mg/dL Total Bilirubin 0.3 (0.0-1.0) mg/dL AST 14 (5-31) U/L ALT 13 (0-31) U/L Alkaline Phosphatase 56 (39-117) U/L Troponin I High Sens < 2.7 (<3.5-17.0) ng/L Total Protein 6.5 (6.5-8.0) g/dL Albumin 4.2 (3.5-5.0) g/dL Lipase 18 (8-78) U/L Beta HCG, Quant < 2 mIU/mL Discharge Plan Discharge Clinical Impression: Left-sided chest pain Patient Disposition: Home, Self-Care Additional Instructions: Your testing in the emergency room today is very reassuring. There was no sign of a heart attack. There was no sign of a blood clot in your system. Your chest x-ray does not show any concerning findings. You may use acetaminophen and/or ibuprofen as needed for discomfort. Please work on getting a new primary care provider. There is some contact information for a number of different practices in [place] in [place]. I would recommend calling these practices to see if they are taking new patients. Additionally you can contact your insurance to see if they can give you any advice about a new primary care provider. Please return to the emergency room if you feel significantly worse. Prescriptions: No Action ondansetron 4 mg tablet,disintegrating 4 mg PO Q6-8H PRN (Reason: nausea and vomiting) Qty: 7 0RF capsaicin 0.025 % Cream 1 appl topical TID PRN (Reason: Nausea And Vomiting) Qty: 60 1RF Protocol: Apply to: Apply to: Abdomen prochlorperazine maleate 5 mg tablet 5 mg PO Q8H PRN (Reason: nausea and vomiting) Qty: 20 0RF methylprednisolone [Medrol (Timothy)] 4 mg tablets,dose pack 4 mg PO QAM Qty: 21 0RF Rx Instructions: Take per package instructions methocarbamol 750 mg tablet 750 mg PO Q8H PRN (Reason: pain) Qty: 15 0RF metoprolol succinate 50 mg Tablet Extended Release 24 Hr 50 mg PO DAILY famotidine [Pepcid] 20 mg tablet 20 mg PO BID Qty: 28 0RF Referrals: [facility] [Provider Group] [facility], [place] [Provider Group, Internal Medicine] [facility] Primary Care, [place] [Provider Group, Internal Medicine] [facility] Primary Care, [facility] [Provider Group, Primary Care] [facility] [Provider Group] Kimberly Goldberg MD [Physician, Internal Medicine] Interventions: ED Discharge Assessment Last Done: 08/18/24 20:26 Discharge Date/Time: 08/18/24 20:29 Print Language: Kazakh
[2024-08-18 18:20] LABS: MANUAL DIFF FLAG NO
[2024-08-18 18:22] LABS: Hematocrit 35.0 % (37.0-47.0); Hemoglobin 11.7 g/dl (12.0-16.0); Imm Gran Abs Auto 0.03 X10*3/uL (0.00-0.03); Imm Gran Pct Auto 0.2 % (0.0-0.4); Lymphocytes Absolute Auto 4.1 X10*3/uL (1.2-4.9); Mean Corpuscular HGB Conc 33.4 g/dl (31.0-35.0); Mean Corpuscular Hemoglobin 24.9 pg (27.0-33.0); Mean Corpuscular Volume 74.6 fL (80.0-98.0); NRBC Abs Auto 0.000 X10*3/uL (0.0-0.012); NRBC Pct Auto 0.0 /100WBC (0.0-0.2); Platelet Count 269 X10*3/uL (160-400); Red Blood Count 4.69 X10*6/uL (4.20-5.50); White Blood Count 12.1 X10*3/uL (4.8-10.8)
[2024-08-18 18:53] LABS: Alanine Aminotransferase 13 U/L (0-31); Albumin Level 4.2 g/dL (3.5-5.0); Alkaline Phosphatase 56 U/L (39-117); Anion Gap 10 (12-20); Aspartate Amino Transferase 14 U/L (5-31); Blood Urea Nitrogen 14 mg/dL (9-16); Calcium 9.0 mg/dL (8.4-10.2); Carbon Dioxide 26 mmol/L (22-29); Chloride 108 mmol/L (96-108); Creatinine Clr Calc Pharmacy 87.4; Estimated Glomerular Filt Rate > 60; Lipase 18 U/L (8-78); Magnesium 2.2 mg/dL (1.6-2.6); Potassium 3.4 mmol/L (3.3-5.1); Sodium 141 mmol/L (135-145); Total Protein 6.5 g/dL (6.5-8.0)
[2024-08-18 18:59] LABS: Troponin-I High Sensitivity < 2.7 ng/L (<3.5-17.0)
[2024-08-18 19:09] VITALS: BP 132/74; PULSE 80; RESP 16; TEMP 37.1; O2SAT 99
[2024-08-18 19:50] LABS: D Dimer High Sensitivity < 150 NG/ML
--- OUTSIDE RECORDS SUMMARY | 2024-08-18 20:02 | XMS_ITS | Clinical Summary ---
Author Organization [employer] [facility] Address [address] [place] [address] Care Team Providers Care Speech And Language Specialist Name Role Phone Unavailable Primary Care Provider [...] 2023-2 5 season) 2023 Influenza Vaccine (#1) 2024 HIB Vaccines Aged Out No longer [...] 5 Years) and At-Risk Patients (6 to 49 Years) Aged Out No longer eligible b ased on patient's age to complete this topic RSV Immunization Patients Un shanthi 20 months Aged Out No longer eligible b ased on patient's age to complete this topic Varicella Vaccines Aged Out No longer eligible based on patient's age to complete this topic
--- OUTSIDE RECORDS SUMMARY | 2024-08-18 20:02 | XMS_ITS | Clinical Summary ---
Author Organization [facility] Address [address] [place] [address] Care Team Providers Care Straight Cutter Machine Name Role Phone Ana Viveros PA-C Primary Care Provider [phone] Source Comments PLEASE NOTE, if this patient [...] noted on CT abdomen - done at [facility] 09/22/14 - impression multiple bilateral non obstructing renal calculi the largest up to 5 mm. No hydronephrosis Epigastric abdominal pain 08/21/2014 Overview (08/21/2014): EGD - Done at [facility] - 08/14/14 -Findings Normal esophagus , stomach Mucosa, Normal Duodenum- awaiting stomach Biopsy Unspecified asthma(493.90) 03/06/2014 Overview (06/03/2014): per PMH as noted on previous medical records -- Normal spirometry 08/30/07 Right nephrolithiasis Without evidence of hydron ephrosis 03/06/2014 Overview (03/06/2014): UG gall Bladder 06/22/13 Hx of gastritis 03/06/2014 Overview (03/06/2014): Per hospital records [facility] ADHD (attention deficit hyperactivity disorder) 02/20/2014 Overview (02/20/2014): As per hospital record reviewed Marijuana use 02/20/2014 Overview (02/20/2014): As per hospital record reviewed Immunizations Immunization Administration Dates Next Due Flu, Preservative Free 12/22/2019,01/30/2016 Hep B, Adult/Adol ([id number]-ADULT) 09/20/2001 Hep B,adult,adjuvanted (HEPLISAV) 06/15/2022 MMR (MMR II/Priorix) 02/28/2020,09/21/2011 PPD 02/17/2022,04/22/2018,09/21/2011 Pfizer COVID vaccine, MARIANO SHELTON, martin cap, 12+ 05/06/2022 Pfizer-BioNTech COVID-19 [...] 98 03/03/2023 4:37 PM EST Temperature 37.2 C (98.9 F) 03/03/2023 4:37 PM EST Respiratory Rate 16 03/03/2023 4:37 PM EST [...] of 2 - PCV) 01/16/2015 4 Annual Wellness (Adult): Indicated (All Coverage) 02/20/2022 02/20/2021, 06/01/2014 Relationship Safety Screening/Counseling 02/20/2022 02/20/2021 Cervical Cancer Screening 09/07/2022 Pap Smear 09/07/2022 09/08/2019 ([place] by Outside Provider), 04/27/2014 (Managed by Outside Provider), 02/19/2014 (Managed by Outside Provider) Anxiety Screening 08/07/2023 08/06/2022 [id number] ( season) 2023 023, 05/06/2022 Alcohol and Drug Screen 02/09/2024 06/16/19 23, 02/20/2021, 04/22/2018, Additional history exists Depression Annual Screen 02/09/2024 08/06/2022, 02/08 Imm-Influenza (#1) 2024 12/22/2019, 1 , 01/30/2016, Additional history exists Diabetes Screening 06/15/2025 06/15/2022, 0 06/15/2022, 02/19/2014, [...] Recently Relevant to Health Maintenance Results * Hep C Antibody with Reflex HCV RNA (06/15/2022 2:47 PM EDT) HEPATITIS C ANTIBODY NON-REACT SERGEY NON-REACT SERGEY [employer] SIGNAL TO CUT-OFF 0.14 <1.00 [employer] Comment: HCV antibody was non-reactive. There is no laboratory evidence of HCV infection. In most cases, no further action is required. However, if recent HCV exposure is suspected, a test for HCV RNA (test code 94806) is suggested. For additional information please refer to http://education.Gear6/faq/KBO08x0 (This link is being provided for informational/ educational purposes only.) Blood Blood / Unknown 06/15/2022 2 :47 PM EDT 06/15/2022 2:47 PM EDT us Ana Viveros PA-C LAB - BLOOD DRAW Edited Resu lt - Final [employer] [address] [address], [employer] [address] [address] * HIV Ag & Ab with Reflex Western Blot (06/15/2022 2:47 PM EDT) HIV AG/AB, 4TH GEN NON-REAC TIVE NON-REAC TIVE [employer] Comment: HIV-1 antigen and HIV-1/HIV-2 antibodies were not detected. There is no laboratory evidence of HIV infection. PLEASE NOTE: This information has been disclosed to you from records whose confidentiality may be protected by state law. If your state requires such protection, then the state law prohibits you from making any further disclosure of the information without the specific written consent of the person to whom it pertains, or as otherwise permitted by law. A general authorization for the release of medical or other information is NOT sufficient for this purpose. For additional information please refer to http://education.Gear6/faq/WXI337 (This link is being provided for informational/ educational purposes only.) The performance of this assay has not been clinically validated in patients less than 2 years old. Blood Blood / Unknown 06/15/2022 2 :47 PM EDT 06/15/2022 2:47 PM EDT Ana Viveros PA-C LAB - BLOOD DRAW Final Resul t [facility] [address] [address], [employer] [address] [place] [address] * (ABNORMAL) CMP (06/15/2022 2:47 PM EDT) GLUCOSE 108(H) 65 - 99 mg/dL [employer] Comment: Fasting reference interval For someone without known diabetes, a glucose value between 100 and 125 mg/dL is consistent with prediabetes and should be confirmed with a follow-up test. UREA NITROGEN (BUN) 9 7 - 25 mg/dL [employer] CREATININE (blood) 0.48(L) 0.50 - 0.97 mg/dL [employer] EGFR 127 > OR = 60 mL/min/1. 73m2 [employer] Comment: The eGFR is based on the CKD-EPI 2020 equation. To calculate the new eGFR from a previous Creatinine or Cystatin C result, go to https://www.kidney.org/professionals/ kdoqi/gfr%5Fcalculator BUN/CREATININE RATIO 19 6 - 22 (calc) [employer] SODIUM 138 135 - 146 mmol/L [employer] [facility] POTASSIUM 3.9 3.5 - 5.3 mmol/L [employer] [facility] CHLORIDE 107 98 - 110 mmol/L [employer] [facility] CARBON DIOXIDE 22 20 - 32 mmol/L [employer] [facility] CALCIUM 9.2 8.6 - 10.2 mg/dL [employer] [facility] PROTEIN, TOTAL 6.5 6.1 - 8.1 g/dL [employer] [facility] ALBUMIN 4.2 3.6 - 5.1 g/dL [employer] [facility] GLOBULIN 2.3 1.9 - 3.7 g/dL (calc) [employer] [facility] ALBUMIN/GLOBULI N RATIO 1.8 1.0 - 2.5 (calc) [employer] [facility] BILIRUBIN, TOTAL 0.6 0.2 - 1.2 mg/dL [employer] [facility] ALKALINE PHOSPHATASE 54 31 - 125 U/L [employer] [facility] AST 10 10 - 30 U/L [employer] [facility] ALT 10 6 - 29 U/L [employer] [facility] Blood Blood / Unknown 06/15/2022 2 :47 PM EDT 06/15/2022 2:47 PM EDT Ana Viveros PA-C LAB - BLOOD DRAW Edited Resu lt - Final [employer] [facility] [address] [address], [employer] [facility] [address] [place] [address] from Last 3 Months or Most Recently Relevant to Health Maintenance Insurance [facility] [employer] Member Subscriber Plan / Payer (Ef fective 2023-Present) Name:Felecia Mcdonald Relation to Subscriber:Self Name:Felecia Mcdonald Payer ID:[id number] Group ID:Not on file Type:Medicaid Address: [facility] [address] [place] [address] Care Teams Straight Cutter Machine Relationship Specialty Start Date End Date Ana Viveros PA-C [facility] [place] [address] PCP - General Internal Medicine 11/25/20
--- OUTSIDE RECORDS SUMMARY | 2024-08-18 20:02 | XMS_ITS | Clinical Summary ---
Author Organization [facility] Address [address] [place] [address] Phone Care Team Providers Care [employer]ision Instrument And Tool Maker Name Role Phone Unavailable Primary Care Provider [...] 2 - 2-dose childhood series) 07/21/2000 04/28/2000 COVID-19 Vaccine ( season) 2023 Influenza Vaccines (#1) 2024 HIB Vaccines Completed 07/14/1991 IPV Vaccines Completed [...]
[2024-08-18 20:26] VITALS: BP 132/74; PULSE 80; RESP 16; TEMP 37.1; O2SAT 99
== END 2024-08-18 20:29 | disposition home or self-care (01) ==
PROVIDERS: Physician Assistant; Emergency Provider Emergency Medicine
DX: R07.9 Chest pain, unspecified (principal); R00.0 Tachycardia, unspecified; Z79.899 Other long term (current) drug therapy
CPT/HCPCS: 36415; 71046; 80053; 83690; 83735; 84484; 84702; 85025; 85379; 96372; 99284; J1885

== ENCOUNTER → 2024-08-18 19:12 | Outpatient (BNV) | payer OTHER, SELFPAY | PROVIDERS: Emergency Provider Emergency Medicine; Visit Provider Radiology Neuroradiology | DX: R07.9 Chest pain, unspecified (principal) | CPT/HCPCS: 71046 ==

== ENCOUNTER 2024-08-21 17:17 | Emergency (ER) | payer OTHER, SELFPAY ==
--- NOTE | ~2024-08-21 | CT_ITS ---
CLINICAL HISTORY: lower abd tenderness. WBC 16. CT Abdomen and Pelvis W Contrast COMPARISON: CT/SR - CT ABDOMEN PELVIS WO IV CON - 04/26/24 16:50 EDT FINDINGS: Small hiatal hernia. Subcentimeter hypodensities in the liver, too small to accurately characterize. Normal spleen. Nonobstructing bilateral renal calculi. No visible ureteral calculi. Subcentimeter hypodensities in both kidneys, too small to accurately characterize. No hydronephrosis. Normal adrenal glands. Normal pancreas. No visible cholelithiasis. No biliary dilation. Colonic diverticulosis. Thickening of the rankin of the sigmoid colon in an area of diverticular disease, with adjacent fat stranding. No evidence of bowel obstruction. Status post appendectomy. Mild diffuse bladder wall thickening. Unremarkable uterus. No ascites. No pneumoperitoneum. No lymphadenopathy. No acute fracture. No abdominal aortic aneurysm. IMPRESSION: Findings consistent with uncomplicated sigmoid diverticulitis. Possible cystitis. Nonemergent/incidental findings above. This document has been electronically signed by: Maurice Jacobson MD on 08/21/2024 23:39:24
[2024-08-21 18:10] VITALS: BP 136/82; PULSE 116; RESP 18; TEMP 36.8; O2SAT 100; BMI 32.3
--- NOTE | 2024-08-21 18:14 | ED_ITS ---
HPI - Abdominal Pain General Chief Complaint: Abdominal Pain Stated Complaint: Kidney Stone, pain Time Seen by Provider: 08/21/24 20:03 History of Present Illness ED Provider: Ernesto Richey MD HPI narrative: 38-year-old female with a history of ureteral stones most recently visualized on a CT of the abdomen in April 2024 with bilateral nonobstructing stones up to 7 mm in size. Acute flank pain today. Denies fever Related Data Home Medications ?Medication ?Instructions ?Recorded ?Confirmed No Known Home Meds 08/22/24 08/22/24 Allergies Allergy/AdvReac Type Severity Reaction Status Date / Time hydromorphone (Dilaudid) Allergy Unknown hives Verified 08/22/24 15:53 metoclopramide (From Reglan) Allergy Unknown Verified 08/22/24 15:53 ibuprofen (From MOTRIN) AdvReac Mild STOMACH Verified 08/22/24 15:53 UPSET PMFSH Past Medical History Medical History Cannabis-induced disorder Shortness of breath Sinus tachycardia Cyclical vomiting Anxiety Ureteric calculus Family History Family History Father Heart disease Other Hypokalemia Social History Social History Household Members: Spouse and Children Housing: House Do you presently have visiting nurse or other home services: No Alcohol intake: never Patient Tobacco Use Status: Never used Tobacco Substance Use Type: Marijuana service: No Physical Exam ED Vital Signs: Vital Signs - 24 hr 08/21/24 18:10 08/21/24 19:20 08/21/24 19:49 Temperature 98.2 F 98.3 F 99.7 F Pulse Rate 116 H 99 90 Respiratory Rate 18 18 24 H Blood Pressure 136/82 136/66 138/59 L Pulse Oximetry 100 100 100 Oxygen Delivery Method Room Air Room Air Room Air 08/21/24 22:31 08/21/24 23:41 Temperature 98.0 F 98.4 F Pulse Rate 75 95 Respiratory Rate 16 18 Blood Pressure 116/66 120/70 Pulse Oximetry 100 99 Oxygen Delivery Method Room Air Room Air BMI result Body Mass Index 32.3 EXAM: Gen: Alert, awake, APPEARS IN SIGNIFICANT DISCOMFORT Head: Atraumatic Eyes: Anicteric, Normal conjunctiva. ENT: Moist mucosa, no pallor. ? Neck: Supple. Skin: ?No observable rash or bruising on exposed or examined skin Respiratory: Breathing comfortably, No distress.Clear to auscultation bilaterally, symmetric chest expansion, No wheeze, rales, ronchi. Cardiovascular: Regular rate and rhythm. No murmurs or rub. Well perfused periphery, warm extremities. No edema. ? Abdominal: SEVERE TENDERNESS IN THE LOWER ABDOMEN PARTICULARLY SUPRAPUBIC NO LATERAL PREDOMINANCE IN THE LOWER QUADRANTS MILD TENDERNESS THROUGHOUT. . Soft, no objective distension. No palpable masses or obvious organomegaly. ?No guarding, no rebound tenderness or other peritoneal findings. : No flank tenderness. Neuro: Alert. Gross movement of all extremities intact. ? Psych: Calm. Cooperative. MSK: No grossly visible deformity. Vital signs: See flowsheet Course Course Course Narrative: 08/21/24 1814 EMMA Ray This is a Rapid Medical Examination (RME) performed by Milo Carrington PA-C in triage. Full HPI, ROS, assessment and treatment plan per primary provider in the Main ED. Hx: 38 yo F here for eval of b/l flank pain rad to lower abd, starting this morning. reports vaginal clots when she went to use the bathroom in the waiting room. took tylenol [employer]. no N/V/D, urinary sx. Plan: labs, ua, preg Medical Decision Making Medical Decision Making MDM Narrative: Medical Decision Making: ABDOMINAL PAIN. Predominantly lower tenderness no flank tenderness. No suggestion of UTI on urinalysis. Renal ultrasound without hydronephrosis. CT shows uncomplicated diverticulitis and bladder thickening. Transition patient to oral morphine. She was p.o. tolerant had a shared decision-making discussion with her about discharge home she was comfortable with this. She works at [employer] [facility] and can likely establish close follow up with GI. Plan for Cipro and Flagyl outpatient Preliminary Favored Differential Diagnosis: Kidney stone, UTI, pyelonephritis, appendicitis, diverticulitis, bowel perforation, less likely adnexal pathology a iraj additional considered etiologies Testing Interpreted Independently: Not Applicable Radiology or Lab testing Results Reviewed: HCG negative, white count 16, UA not suggestive of UTI, CT report read Consults: Not Applicable Independent Historians/External Chart Reviews: Not Applicable Social Determinants of Health Impacting MDM/Planning: Not Applicable Lab Data 08/21/24 19:34 08/21/24 19:34 Labs: Lab Results 08/21/24 Range/Units 19:34 WBC 16.4 H (4.8-10.8) X10*3/uL RBC 4.87 (4.20-5.50) X10*6/uL Hgb 12.2 (12.0-16.0) g/dl Hct 36.4 L (37.0-47.0) % MCV 74.7 L (80.0-98.0) fL MCH 25.1 L (27.0-33.0) pg MCHC 33.5 (31.0-35.0) g/dl RDW 15.7 (11.0-16.0) % Plt Count 286 (160-400) X10*3/uL MPV 11.0 (9.4-12.3) fL Immature Gran % (Auto) 0.4 (0.0-0.4) % Neut % (Auto) 73.6 H (45-73) % Lymph % (Auto) 19.4 L (20-40) % Bowie % (Auto) 5.8 (2-11) % Eos % (Auto) 0.5 (0-4) % Baso % (Auto) 0.3 (0-2) % Lymph # (Auto) 3.2 (1.2-4.9) X10*3/uL Bowie # (Auto) 1.0 (0.1-1.2) X10*3/uL Eos # (Auto) 0.1 (0.0-0.4) X10*3/uL Baso # (Auto) 0.1 (0.0-0.2) X10*3/uL Abs Immat Gran (auto) 0.07 H (0.00-0.03) X10*3/uL Absolute Neuts (auto) 12.1 H (2.0-8.3) x10*3/uL Absolute Nucleated RBC 0.000 (0.0-0.012) X10*3/uL Nucleated RBC % (auto) 0.0 (0.0-0.2) /100WBC Sodium 141 (135-145) mmol/L Potassium 3.3 (3.3-5.1) mmol/L Chloride 108 (96-108) mmol/L Carbon Dioxide 25 (22-29) mmol/L Anion Gap 11 L (12-20) BUN 10 (9-16) mg/dL Creatinine 0.80 (0.5-1.4) mg/dL Estim Creat Clear Calc 110.2 Estimated GFR > 60 Random Glucose 127 H (60-115) mg/dL Calcium 9.3 (8.4-10.2) mg/dL Magnesium 2.2 (1.6-2.6) mg/dL Total Bilirubin 0.5 (0.0-1.0) mg/dL AST 18 (5-31) U/L ALT 14 (0-31) U/L Alkaline Phosphatase 60 (39-117) U/L Total Protein 7.4 (6.5-8.0) g/dL Albumin 4.5 (3.5-5.0) g/dL Beta HCG, Quant < 2 mIU/mL Urine Color Yellow Urine Appearance Clear Urine pH 8.0 (5.0-9.0) Ur Specific [place] 1.015 (1.005-1.025) Urine Protein Trace (Neg-Trace) mg/dL Urine Glucose (UA) Negative (Negative) mg/dL Urine Ketones 15 (Negative) mg/dL Urine Blood Moderate (2+) H (Negative) Urine Nitrite Negative (Negative) Ur Leukocyte Esterase Negative (Negative) Urine RBC 3-5 H (0-2) /HPF Urine WBC 0-5 (0-5) /HPF Ur Squamous Epith Cells 0-2 (0-2) /HPF Urine Bacteria None Seen (None Seen) Hyaline Casts 0-2 (0-2) /LPF Medications Administered Discontinued Medications Generic Name Dose Route Start Last Admin Trade Name Freq PRN Reason Stop Dose Admin Diphenhydramine HCl 12.5 mg 08/21/24 21:04 08/21/24 23:16 Diphenhydramine Hcl 50 Mg/Ml Vial IVPUSH 08/21/24 21:05 Not Given ONCE ONE Sodium Chloride 1,000 mls @ 999 mls/hr 08/21/24 20:30 08/21/24 22:00 Ns IV 08/21/24 21:30 Infused .Q1H1M KANDY Infusion Iohexol 85 ml 08/21/24 21:31 08/21/24 21:32 Iohexol 350 Mg/Ml 100 Ml Infus..Btl IV 08/21/24 21:32 85 ml ONCE ONE Administration Ketorolac Tromethamine 15 mg 08/21/24 20:21 08/21/24 20:32 Ketorolac Tromethamine 15 Mg/Ml Vial IVPUSH 08/21/24 20:22 15 mg ONCE ONE Administration Levofloxacin 750 mg 08/21/24 23:49 08/21/24 23:54 Levofloxacin 750 Mg Tablet PO 08/21/24 23:50 750 mg ONCE ONE Administration Metronidazole 500 mg 08/21/24 23:49 08/21/24 23:54 Metronidazole 500 Mg Tablet PO 08/21/24 23:50 500 mg ONCE ONE Administration Morphine Sulfate 4 mg 08/21/24 21:04 08/21/24 21:09 Morphine Sulfate 4 Mg/Ml Cartridge IVPUSH 08/21/24 21:05 4 mg ONCE ONE Administration Protocol Morphine Sulfate 15 mg 08/21/24 23:58 08/22/24 00:05 Morphine Sulfate Immed Release 15 Mg Tablet PO 08/21/24 23:59 15 mg ONCE ONE Administration Ondansetron HCl 4 mg 08/21/24 20:21 08/21/24 20:33 Ondansetron Hcl 4 Mg/2 Ml Vial IVPUSH 08/21/24 20:22 4 mg ONCE ONE Administration Tamsulosin HCl 0.4 mg 08/21/24 20:21 08/21/24 20:33 Tamsulosin Hcl 0.4 Mg Capsule PO 08/21/24 20:22 0.4 mg ONCE ONE Administration Discharge Plan Discharge Clinical Impression: Diverticulitis Patient Disposition: Home, Self-Care Instructions: Diverticulitis (DC) Additional Instructions: _ DISCHARGE DIAGNOSES: Diverticulitis, inflamed and infected diverticula which are small out pouches of the large intestine in the lower abdomen HISTORY OF PRESENTATION: ?Severe lower abdominal pain EMERGENCY DEPARTMENT COURSE,TESTS, TREATMENTS: While in the ED today you were very uncomfortable and received ketorolac and nonsteroidal anti-inflammatory medication, IV fluid and later IV morphine. You later received levofloxacin and Flagyl antibiotics to treat your diverticulitis. CT showed diverticulitis and bladder thickening though your urinalysis did not suggest UTI. We have initiated treatment for diverticulitis. DISCHARGE MEDICATIONS: ?Ciprofloxacin and Flagyl has been ordered for you as well as ondansetron to be taken only as needed for nausea. FOLLOW-UP: ?Call your primary or general physician soon as possible to discuss your symptoms, your ED visit and to discuss follow up plans Call your PCP for follow up INSTRUCTIONS ?& RETURN PRECAUTIONS: If any symptoms change first call your primary physician, if it is after-hours your primary doctors office should have a provider grain operations manager you can speak with. If the symptoms are severe or very concerning to you then call 911 or return to the ED. Return for severe or abrupt sudden worsening of your abdominal pain blood in your stool passing out, high fevers worsening pain despite at least 48 hours of antibiotics or other severe symptoms as we discussed Ernesto Richey MD Emergency Physician [facility] Prescriptions: No Action No Known Home Meds Stand Alone Forms: Work/School Release Interventions: ED Discharge Assessment Last Done: 08/22/24 01:58 Discharge Date/Time: 08/22/24 01:58 Print Language: Kiswahili
[2024-08-21 19:20] VITALS: BP 136/66; PULSE 99; RESP 18; TEMP 36.8; O2SAT 100
[2024-08-21 19:35] LABS: MANUAL DIFF FLAG NO
[2024-08-21 19:36] LABS: Hematocrit 36.4 % (37.0-47.0); Hemoglobin 12.2 g/dl (12.0-16.0); Imm Gran Abs Auto 0.07 X10*3/uL (0.00-0.03); Imm Gran Pct Auto 0.4 % (0.0-0.4); Lymphocytes Absolute Auto 3.2 X10*3/uL (1.2-4.9); Mean Corpuscular HGB Conc 33.5 g/dl (31.0-35.0); Mean Corpuscular Hemoglobin 25.1 pg (27.0-33.0); Mean Corpuscular Volume 74.7 fL (80.0-98.0); NRBC Abs Auto 0.000 X10*3/uL (0.0-0.012); NRBC Pct Auto 0.0 /100WBC (0.0-0.2); Platelet Count 286 X10*3/uL (160-400); Red Blood Count 4.87 X10*6/uL (4.20-5.50); White Blood Count 16.4 X10*3/uL (4.8-10.8)
[2024-08-21 19:38] LABS: Appearance Urine Clear; Glucose Urine UA Negative (Negative); PH 8.0 (5.0-9.0); Specific Gravity - Urine 1.015 (1.005-1.025); UMIC TRIGGER UACC YES
[2024-08-21 19:49] VITALS: BP 138/59; PULSE 90; RESP 24; TEMP 37.6; O2SAT 100
[2024-08-21 19:58] LABS: Alanine Aminotransferase 14 U/L (0-31); Albumin Level 4.5 g/dL (3.5-5.0); Alkaline Phosphatase 60 U/L (39-117); Anion Gap 11 (12-20); Aspartate Amino Transferase 18 U/L (5-31); Blood Urea Nitrogen 10 mg/dL (9-16); Calcium 9.3 mg/dL (8.4-10.2); Carbon Dioxide 25 mmol/L (22-29); Chloride 108 mmol/L (96-108); Creatinine Clr Calc Pharmacy 110.2; Estimated Glomerular Filt Rate > 60; Magnesium 2.2 mg/dL (1.6-2.6); Potassium 3.3 mmol/L (3.3-5.1); Sodium 141 mmol/L (135-145); Total Protein 7.4 g/dL (6.5-8.0)
--- NOTE | 2024-08-21 21:23 | PC.NURSE ---
Patient verbally and physically in pain, toradol least effective. Questioned MD for better pain control. Patient stating it feels like previous kidney stones. MD ordered morphine, asked regarding allergies due to hydromorphone relation. Pt stating she has no reaction to morphine. Pt requested to void, assist to commode bedside due to the administration of IV morphine. Pt tolerated well, voided, and got back in stretcher safely. Recovered patient, dimmed the lights and placed the side rail up and call licea in reach. Instructed patient to call for help. Awaiting CT scan.
[2024-08-21] MEDS: iohexoL 350 MG/ML 100 ML INFUS..BTL 85 ML IV (21:32)
[2024-08-21 22:31] VITALS: BP 116/66; PULSE 75; RESP 16; TEMP 36.7; O2SAT 100
[2024-08-21 23:41] VITALS: BP 120/70; PULSE 95; RESP 18; TEMP 36.9; O2SAT 99
[2024-08-22] MEDS: Morphine Sulfate Immed Release 15 MG TABLET PO (00:05)
[2024-08-22 01:58] VITALS: BP 120/70; PULSE 95; RESP 18; TEMP 36.9; O2SAT 99
== END 2024-08-22 01:58 | disposition home or self-care (01) ==
PROVIDERS: Physician Assistant Medical; Emergency Provider Emergency Medicine
DX: K57.32 Diverticulitis of large intestine without perforation or abscess without bleeding (principal); N93.9 Abnormal uterine and vaginal bleeding, unspecified; R10.30 Lower abdominal pain, unspecified; Z87.442 Personal history of urinary calculi
CPT/HCPCS: 36415; 74177; 76775; 80053; 81001; 83735; 84702; 85025; 96361; 96374; 96375; 99284; J1885; J2270; J2405; Q9967

== ENCOUNTER → 2024-08-21 21:15 | Outpatient (BNV) | payer OTHER, SELFPAY | PROVIDERS: Emergency Provider Emergency Medicine; Visit Provider Radiology Diagnostic Radiology | DX: R10.813 Right lower quadrant abdominal tenderness (principal) | CPT/HCPCS: 74177 ==

== ENCOUNTER 2024-08-22 15:36 | Inpatient (IN) | payer OTHER, SELFPAY ==
[2024-08-22 15:49] VITALS: BP 132/90; PULSE 138; BMI 29.0
--- NOTE | 2024-08-22 16:15 | ECG_ITS ---
Test Reason : ABD PAIN Blood Pressure : */* mmHG Vent. Rate : 88 BPM Atrial Rate : 88 BPM P-R Int : 140 ms QRS Dur : 76 ms QT Int : 376 ms P-R-T Axes : 34 -1 48 degrees QTcB Int : 454 ms Normal sinus rhythm Normal ECG When compared with ECG of 11-Aug-2024 18:49, No significant change was found Referred By: Alvaro Hernandez Electronically Signed By: ZAFAR WU
--- NOTE | 2024-08-22 16:21 | ED.GENADULT ---
HPI - General Adult General Chief complaint: Abdominal Pain Stated complaint: nausea, vomiting, diagnosed w/ diverticulitis Time Seen by Provider: 08/22/24 16:09 Source: patient, RN notes reviewed and old records reviewed Mode of arrival: EMS Limitations: no limitations History of Present Illness ED Provider: Mary HPI narrative: 38-year-old female with past medical history significant for cannabis hyperemesis syndrome, GERD presents to the emergency department complaining of nausea vomiting and abdominal pain. Patient was seen in his hospital yesterday due to abdominal pain and vomiting. She had a CT scan that showed acute diverticulitis. She was ultimately discharged home with morphine, Zofran, ciprofloxacin and Flagyl Stat since going home she has been unable to tolerate any of her meds. She complains of 10/10 pain across her entire lower abdomen. She reports vomiting throughout the day Related Data Home Medications ?Medication ?Instructions ?Recorded ?Confirmed metoprolol succinate 50 mg 50 mg PO DAILY 04/24/24 06/10/24 tablet,extended release 24 hr Previous Rx's ?Medication ?Instructions ?Recorded ondansetron 4 mg disintegrating 4 mg PO Q6-8H PRN nausea and 06/10/24 tablet vomiting #7 tabs capsaicin 0.025 % topical cream 1 appl topical TID PRN Nausea And 06/11/24 Vomiting #60 grams prochlorperazine maleate 5 mg 5 mg PO Q8H PRN nausea and 06/11/24 tablet vomiting #20 tabs methocarbamol 750 mg tablet 750 mg PO Q8H PRN pain #15 tabs 08/07/24 methylprednisolone 4 mg tablets in 4 mg PO QAM #21 ea 08/07/24 a dose pack (Medrol (Timothy)) famotidine 20 mg tablet (Pepcid) 20 mg PO BID #28 tabs 08/11/24 ciprofloxacin HCl 500 mg tablet 500 mg PO Q12H 7 days #14 tabs 08/21/24 metronidazole 500 mg tablet 500 mg PO Q8H 7 days #21 tabs 08/21/24 morphine 15 mg immediate release 15 mg PO Q6H PRN pain #7 tabs 08/21/24 tablet ondansetron 4 mg disintegrating 4 mg PO Q8H PRN nausea and 08/21/24 tablet vomiting #7 tabs oxycodone 5 mg tablet 5 mg PO Q6H PRN pain #10 tabs 08/22/24 Allergies Allergy/AdvReac Type Severity Reaction Status Date / Time hydromorphone (Dilaudid) Allergy Unknown hives Verified 08/22/24 15:53 metoclopramide (From Reglan) Allergy Unknown Verified 08/22/24 15:53 ibuprofen (From MOTRIN) AdvReac Mild STOMACH Verified 08/22/24 15:53 UPSET Review of Systems Constitutional: Constitutional: Denies body ache(s), Denies chills and Denies fever(s) Eyes: Eyes: Denies blurry vision ENT: Denies dizziness and Denies dry mouth Cardiovascular: Cardiovascular: Denies chest pain and Denies dyspnea on exertion Respiratory: Respiratory: Denies cough and Denies dyspnea on exertion Gastrointestinal: Gastrointestinal: Reports abdominal pain, Denies diarrhea, Denies loose stools, Reports nausea and Reports vomiting Genitourinary: Genitourinary: Denies difficulty voiding, Denies dysuria and Denies pelvic pain Musculoskeletal: Musculoskeletal: Denies back pain Integumentary/Breasts: Skin/Breast: Denies rash Neurologic: Denies dizziness PMFSH Past Medical History Medical History Shortness of breath Sinus tachycardia Cyclical vomiting Anxiety Ureteric calculus Family History Family History Father Heart disease Other Hypokalemia Social History Social History Household Members: Spouse and Children Housing: House Do you presently have visiting nurse or other home services: No Alcohol intake: never Patient Tobacco Use Status: Never used Tobacco Smoked in Last 30 Days: No Use of substances other than those prescribed or required for medical reasons: No Substance Use Type: Marijuana Advance Directives: No Advance Directives Information Provided: No Do you have a plan to hurt others: No Plan Patient : No service: No Physical Exam ED Vital Signs: Vital Signs - 24 hr 08/22/24 16:32 08/22/24 17:47 Temperature 98.4 F Pulse Rate 99 72 Respiratory Rate 116 H 16 Blood Pressure 95/49 L Pulse Oximetry 98 99 Oxygen Delivery Method Room Air Room Air BMI result Body Mass Index 29.0 Const General: healthy appearing, alert and awake Nutritional Appearance: well nourished Orientation/consciousness: patient oriented x3 HENMT Head: Yes normocephalic and Yes atraumatic Eyes Eyelids: Yes eyelids normal Conjunctivae: conjunctivae normal Sclerae: sclerae normal Corneas: corneas normal Pupils: Equal, round and reactive pupils present EOM: EOMs intact bilaterally Neck Neck: Yes full ROM Resp Effort & Inspection: normal respiratory effort, able to speak in complete sentences and not labored Cardio Rate: regular rate Rhythm: regular rhythm GI Inspection: No distended Palpation (GI): Soft to palpation, not firm, nontender, no guarding and not rigid Skin General skin exam: elasticity normal Neuro General: patient oriented x3 Cranial nerves: Yes Equal, round and reactive pupils present and Yes Bilaterally intact EOM present Cognition (Neuro): normal cognition Extrem Other: Moving all extremities well without any obvious deformities Course Reevaluation(s) Reevaluation #1: Patient's pain resolved with Benadryl and droperidol. However her nausea returned. At this time I think it is much less likely that she has surgical abdomen and more likely cyclic vomiting. However she is unable to tolerate her pain meds or missed with the hospitalist for admission due to intractable vomiting and diverticulitis. I ordered a dose of Zosyn IV Time: 18:18 Medications Administered Generic Name Dose Route Start Last Admin Trade Name Freq PRN Reason Stop Dose Admin Sodium Chloride 1,000 mls @ 999 mls/hr 08/22/24 18:30 08/22/24 18:27 Ns IV 08/22/24 19:30 999 mls/hr .Q1H1M KANDY Administration Piperacillin Sod/Tazobactam 50 mls @ 100 mls/hr 08/22/24 18:16 08/22/24 18:33 Sod 3.375 gm/ Sodium Chloride IV 08/22/24 18:45 100 mls/hr ONCE ONE Administration Discontinued Medications Generic Name Dose Route Start Last Admin Trade Name Freq PRN Reason Stop Dose Admin Diphenhydramine HCl 50 mg 08/22/24 16:08 08/22/24 16:14 Diphenhydramine Hcl 50 Mg/Ml Vial IVPUSH 08/22/24 16:09 50 mg ONCE ONE Administration Droperidol 1.25 mg 08/22/24 16:08 08/22/24 16:14 Droperidol 5 Mg/2 Ml Vial IVPUSH 08/22/24 16:09 1.25 mg ONCE ONE Administration Sodium Chloride 1,000 mls @ 999 mls/hr 08/22/24 16:15 08/22/24 16:17 Ns IV 08/22/24 17:15 999 mls/hr .Q1H1M KANDY Administration Prochlorperazine Edisylate 10 mg 08/22/24 18:16 08/22/24 18:30 Prochlorperazine Edisylate 10 Mg/2 Ml Vial IVPUSH 08/22/24 18:17 10 mg ONCE ONE Administration Medical Decision Making Medical Decision Making [facility] Narrative: 38-year-old female presents for evaluation of continued abdominal pain. She was seen here yesterday and had a CT scan showing acute diverticulitis. There was no perforation. She has been arm with a tolerate any p.o. fluids, liquids or her medications due to persistent nausea and vomiting. I suspect that her nausea and vomiting is multifactorial likely due to her diverticulitis as well as cannabis hyperemesis syndrome. She was medicated with IV fluids, Benadryl and droperidol with significant improvement in her nausea and vomiting. Her pain has resolved. I did not have a very low suspicion for repeat CT imaging, but given that her symptoms resolved with a purulent Benadryl I have a low suspicion for surgical abdomen or perforation Differential Diagnosis Differential Diagnoses: The differential diagnosis associated with the presentation includes Diverticulitis Cannabis hyperemesis syndrome Perforated diverticulitis Dehydration Intractable vomiting Admission/Observation Consideration of admission/observation: Escalation of care including admission/observation considered Consult Healthcare Provider Management of the patient was discussed with: Hospitalist Lab Data [facility] Lab Attestation statement: I reviewed the patient's lab results. Mild leukocytosis to 14.7 which has improved from yesterday when it was 16. No significant anemia. Normal platelet count. No electrolyte abnormalities warranting intervention. Sodium potassium within normal limits. The patient's [place] is slightly elevated which could be due to vomiting. And dehydration. However her BUN and creatinine are normal. The patient's CO2 is slightly low at 21 and I suspect this is due to hyperventilating 08/22/24 16:33 08/22/24 16:59 Labs: Lab Results 07/15/25 07/15/25 Range/Units 16:33 16:59 WBC 14.7 H (4.8-10.8) X10*3/uL RBC 4.90 (4.20-5.50) X10*6/uL Hgb 12.2 (12.0-16.0) g/dl Hct 36.7 L (37.0-47.0) % MCV 74.9 L (80.0-98.0) fL MCH 24.9 L (27.0-33.0) pg MCHC 33.2 (31.0-35.0) g/dl RDW 15.8 (11.0-16.0) % Plt Count 287 (160-400) X10*3/uL MPV 11.5 (9.4-12.3) fL Immature Gran % (Auto) 0.3 (0.0-0.4) % Neut % (Auto) 78.8 H (45-73) % Lymph % (Auto) 15.1 L (20-40) % Bryan % (Auto) 5.4 (2-11) % Eos % (Auto) 0.1 (0-4) % Baso % (Auto) 0.3 (0-2) % Lymph # (Auto) 2.2 (1.2-4.9) X10*3/uL Bryan # (Auto) 0.8 (0.1-1.2) X10*3/uL Eos # (Auto) 0.0 (0.0-0.4) X10*3/uL Baso # (Auto) 0.0 (0.0-0.2) X10*3/uL Abs Immat Gran (auto) 0.04 H (0.00-0.03) X10*3/uL Absolute Neuts (auto) 11.6 H (2.0-8.3) x10*3/uL Absolute Nucleated RBC 0.000 (0.0-0.012) X10*3/uL Nucleated RBC % (auto) 0.0 (0.0-0.2) /100WBC Sodium 142 (135-145) mmol/L Potassium 3.7 (3.3-5.1) mmol/L Chloride 112 H (96-108) mmol/L Carbon Dioxide 21 L (22-29) mmol/L Anion Gap 13 (12-20) BUN 8 L (9-16) mg/dL Creatinine 0.66 (0.5-1.4) mg/dL Estim Creat Clear Calc 126.9 Estimated GFR > 60 Random Glucose 87 (60-115) mg/dL Calcium 8.1 L D (8.4-10.2) mg/dL Magnesium 2.0 (1.6-2.6) mg/dL Total Bilirubin 1.0 (0.0-1.0) mg/dL AST 21 (5-31) U/L ALT 7 (0-31) U/L Alkaline Phosphatase 50 (39-117) U/L Total Protein 5.9 L (6.5-8.0) g/dL Albumin 3.6 (3.5-5.0) g/dL Lipase 8 (8-78) U/L Beta HCG, Quant < 2 mIU/mL Discharge Plan Discharge Clinical Impression: Cyclical vomiting, intractable, Diverticulitis Patient Disposition: Admitted As Inpatient Print Language: Telugu
[2024-08-22 16:32] VITALS: PULSE 99; RESP 116; O2SAT 98
[2024-08-22 16:37] LABS: MANUAL DIFF FLAG NO
[2024-08-22 16:39] LABS: Hematocrit 36.7 % (37.0-47.0); Hemoglobin 12.2 g/dl (12.0-16.0); Imm Gran Abs Auto 0.04 X10*3/uL (0.00-0.03); Imm Gran Pct Auto 0.3 % (0.0-0.4); Lymphocytes Absolute Auto 2.2 X10*3/uL (1.2-4.9); Mean Corpuscular HGB Conc 33.2 g/dl (31.0-35.0); Mean Corpuscular Hemoglobin 24.9 pg (27.0-33.0); Mean Corpuscular Volume 74.9 fL (80.0-98.0); NRBC Abs Auto 0.000 X10*3/uL (0.0-0.012); NRBC Pct Auto 0.0 /100WBC (0.0-0.2); Platelet Count 287 X10*3/uL (160-400); Red Blood Count 4.90 X10*6/uL (4.20-5.50); White Blood Count 14.7 X10*3/uL (4.8-10.8)
--- OUTSIDE RECORDS SUMMARY | 2024-08-22 16:48 | XMS_ITS | Clinical Summary ---
Author Organization [facility] Address [address] [place] [address] Phone Care Team Providers Care Thread Winder Name Role Phone Unavailable Primary Care Provider [...]
--- OUTSIDE RECORDS SUMMARY | 2024-08-22 16:48 | XMS_ITS | Clinical Summary ---
Author Organization [facility] Address [address] [place] [address] Care Team Providers Care [employer] Administrator Name Role Phone Unavailable Primary Care Provider [...]
--- OUTSIDE RECORDS SUMMARY | 2024-08-22 16:48 | XMS_ITS | Clinical Summary ---
Author Organization [facility] Address [address] [place] [address] Care Team Providers Care Punch Machine Hand Name Role Phone Ana Viveros PA-C Primary [...] noted on CT abdomen - done at [facility] 09/22/14 - impression multiple bilateral non obstructing renal calculi the largest up to 5 mm. No hydronephrosis Epigastric abdominal pain 08/21/2014 Overview (08/21/2014): EGD - Done at [facility] - 08/14/14 -Findings Normal esophagus , stomach Mucosa, Normal Duodenum- awaiting stomach Biopsy Unspecified asthma(493.90) 03/06/2014 Overview (06/03/2014): per PMH as noted on previous medical records -- Normal spirometry 08/30/07 Right nephrolithiasis Without evidence of hydron ephrosis 03/06/2014 Overview (03/06/2014): UG gall Bladder 06/22/13 Hx of gastritis 03/06/2014 Overview (03/06/2014): Per hospital records [facility] ADHD (attention deficit hyperactivity disorder) 02/20/2014 Overview (02/20/2014): As per hospital record reviewed Marijuana use 02/20/2014 Overview (02/20/2014): As per hospital record reviewed Immunizations Immunization Administration Dates Next Due Flu, Preservative Free 12/22/2019,01/30/2016 Hep B, Adult/Adol ([id number]/RECOMBIVAX-ADULT) 09/20/2001 Hep B,adult,adjuvanted (HEPLISAV) 06/15/2022 MMR (MMR [...] by Outside Provider) Anxiety Screening 08/07/2023 08/06/2022 [id number] ( season) 2023 023, 05/06/2022 Alcohol and [...] HEPATITIS C ANTIBODY NON-REACT SERGEY NON-REACT SERGEY [place] SIGNAL TO CUT-OFF 0.14 <1.00 [facility] Comment: HCV antibody was non-reactive. There is no laboratory evidence of HCV infection. In most cases, no further action is required. However, if recent HCV exposure is suspected, a test for HCV RNA (test code 41716) is suggested. For additional information please refer to http://education.[employer]/faq/CFJ66h0 (This link is being provided for informational/ educational purposes only.) Blood Blood / Unknown 06/15/2022 2 :47 PM EDT 06/15/2022 2:47 PM EDT us Ana Viveros PA-C LAB - BLOOD DRAW Edited Resu lt - Final [facility] [address] [address], [place] [address] [address] * HIV Ag & Ab with Reflex Western Blot (06/15/2022 2:47 PM EDT) HIV AG/AB, 4TH GEN NON-REAC TIVE NON-REAC TIVE [facility] Comment: HIV-1 antigen and HIV-1/HIV-2 antibodies were [...] purpose. For additional information please refer to http://education.[employer]/faq/HPS817 (This link is being provided for informational/ educational purposes only.) The performance of this assay has not been clinically validated in patients less than 2 years old. Blood Blood / Unknown 06/15/2022 2 :47 PM EDT 06/15/2022 2:47 PM EDT Ana Viveros PA-C LAB - BLOOD DRAW Final Resul t [facility] [address] [address], [facility] [address] [place] [address] * (ABNORMAL) CMP (06/15/2022 2:47 PM EDT) GLUCOSE 108(H) 65 - 99 mg/dL [facility] Comment: Fasting reference interval For someone without known diabetes, a glucose value between 100 and 125 mg/dL is consistent with prediabetes and should be confirmed with a follow-up test. UREA NITROGEN (BUN) 9 7 - 25 mg/dL [facility] CREATININE (blood) 0.48(L) 0.50 - 0.97 mg/dL [facility] EGFR 127 > OR = 60 mL/min/1. 73m2 [facility] Comment: The eGFR is based on the CKD-EPI 2020 equation. To calculate the new eGFR from a previous Creatinine or Cystatin C result, go to https://www.kidney.org/professionals/ kdoqi/gfr%5Fcalculator BUN/CREATININE RATIO 19 6 - 22 (calc) [facility] SODIUM 138 135 - 146 mmol/L [facility] POTASSIUM 3.9 3.5 - 5.3 mmol/L [facility] CHLORIDE 107 98 - 110 mmol/L [facility] CARBON DIOXIDE 22 20 - 32 mmol/L [facility] CALCIUM 9.2 8.6 - 10.2 mg/dL [facility] PROTEIN, TOTAL 6.5 6.1 - 8.1 g/dL [facility] ALBUMIN 4.2 3.6 - 5.1 g/dL [facility] GLOBULIN 2.3 1.9 - 3.7 g/dL (calc) [facility] ALBUMIN/GLOBULI N RATIO 1.8 1.0 - 2.5 (calc) [facility] BILIRUBIN, TOTAL 0.6 0.2 - 1.2 mg/dL [facility] ALKALINE PHOSPHATASE 54 31 - 125 U/L [facility] AST 10 10 - 30 U/L [facility] ALT 10 6 - 29 U/L [facility] Blood Blood / Unknown 06/15/2022 2 :47 PM EDT 06/15/2022 2:47 PM EDT Ana Viveros PA-C LAB - BLOOD DRAW Edited Resu lt - Final [facility] [address] [address], [facility] [address] [place] [address] from Last 3 Months or Most Recently Relevant to Health Maintenance Insurance [facility] Member Subscriber Plan / Payer (Ef fective 2023-Present) Name:Felecia Mcdonald Relation to Subscriber:Self Name:Felecia Mcdonald Payer ID:[id number] Group ID:Not on file Type:Medicaid Address: [facility] [address] [place] [address] Care Teams Punch Machine Hand Relationship Specialty Start Date End Date Ana Viveros PA-C [facility] [place] [address] PCP - General Internal Medicine 11/25/20
[2024-08-22 17:27] LABS: Alanine Aminotransferase 7 U/L (0-31); Albumin Level 3.6 g/dL (3.5-5.0); Alkaline Phosphatase 50 U/L (39-117); Anion Gap 13 (12-20); Aspartate Amino Transferase 21 U/L (5-31); Blood Urea Nitrogen 8 mg/dL (9-16); Calcium 8.1 mg/dL (8.4-10.2); Carbon Dioxide 21 mmol/L (22-29); Chloride 112 mmol/L (96-108); Creatinine Clr Calc Pharmacy 126.9; Estimated Glomerular Filt Rate > 60; Lipase 8 U/L (8-78); Magnesium 2.0 mg/dL (1.6-2.6); Potassium 3.7 mmol/L (3.3-5.1); Sodium 142 mmol/L (135-145); Total Protein 5.9 g/dL (6.5-8.0)
[2024-08-22 17:47] VITALS: BP 95/49; PULSE 72; RESP 16; TEMP 36.9; O2SAT 99
[2024-08-22 18:42] VITALS: BP 117/65; PULSE 74; RESP 13; TEMP 36.9; O2SAT 97
[2024-08-22 18:57] LABS: Appearance Urine Clear; Glucose Urine UA Negative (Negative); PH 7.0 (5.0-9.0); Specific Gravity - Urine 1.010 (1.005-1.025); UMIC TRIGGER UACC YES
--- NOTE | 2024-08-22 19:23 | P.HPHOSP_ITS ---
History of Present Illness Date of Service: 08/22/24 Chief Complaint: abd pain, nausea/vomiting This is a 38-year-old female with pertinent history of cannabis hyperemesis syndrome, gastroesophageal reflux disease who presents to the emergency department for evaluation of abdominal pain, nausea and vomiting. Patient was seen in the ER 1 day prior to presentation and diagnosed with uncomplicated diverticulitis. She was discharged with opioids, p.o. antibiotics. Patient states she was unable to tolerate p.o. intake since being discharged from the ER and continued to have constant lower abdominal pain, progressive and without any relieving factors. Also has been having multiple episodes of nausea and nonbloody emesis. She did not take any antibiotics as she was not tolerating p.o. intake. States she last smoked marijuana 1-2 weeks ago. No fever, chills, chest pain, palpitations, shortness of breath, changes in urinary or bowel habits. In the emergency department, imaging with uncomplicated sigmoid diverticulitis and patient was given IV antibiotics. Review of Systems 2 Constitutional: Constitutional: Reports fatigue and Reports poor appetite Cardiovascular: Cardiovascular: Reports no additional cardiovascular complaints Respiratory: Respiratory: Reports no additional respiratory complaints Gastrointestinal: Gastrointestinal: Reports abdominal pain, Reports nausea and Reports vomiting Genitourinary: Genitourinary: Reports no additional female genitourinary complaints Endocrine: Endocrine: Reports fatigue PMFSH Medical History Cannabis-induced disorder Shortness of breath Sinus tachycardia Cyclical vomiting Anxiety Ureteric calculus Family History Father Heart disease Other Hypokalemia Social History Household Members: Spouse and Children Housing: House Do you presently have visiting nurse or other home services: No Alcohol intake: never Patient Tobacco Use Status: Never used Tobacco Smoked in Last 30 Days: No Use of substances other than those prescribed or required for medical reasons: No Substance Use Type: Marijuana Advance Directives: No Advance Directives Information Provided: No Do you have a plan to hurt others: No Plan Patient : No service: No Meds Allergies Allergy/AdvReac Type Severity Reaction Status Date / Time hydromorphone (Dilaudid) Allergy Unknown hives Verified 08/22/24 15:53 metoclopramide (From Reglan) Allergy Unknown Verified 08/22/24 15:53 ibuprofen (From MOTRIN) AdvReac Mild STOMACH Verified 08/22/24 15:53 UPSET Active Medications: Current Medications Acetaminophen (Acetaminophen 325 Mg Tablet) 650 mg PO Q6H PRN PRN Reason: Pain, Mild 1-3,fever,headache Al Hydroxide/Mg Hydroxide (Magnesium Hydrox/Alum Hydrox 30 Ml Oral.Susp) 30 ml PO Q4H PRN PRN Reason: Heartburn Calcium Carbonate (Calcium Carbonate 750 Mg Tab.Chew) 750 mg PO Q4H PRN PRN Reason: Heartburn Enoxaparin Sodium (Enoxaparin Sodium 40 Mg/0.4 Ml Syringe) 40 mg SUBCUT Q24H [facility] Sodium Chloride (Ns) 1,000 mls @ 999 mls/hr IV .Q1H1M [facility] Stop: 08/22/24 19:30 Last Admin: 08/22/24 18:27 Dose: 999 mls/hr Piperacillin Sod/Tazobactam (Sod 3.375 gm/ Sodium Chloride) 50 mls @ 100 mls/hr IV Q6H [facility] Magnesium Hydroxide (Milk Of Magnesia 30 Ml Oral.Susp) 30 ml PO DAILY PRN PRN Reason: Constipation Melatonin (Melatonin 3 Mg Tablet) 6 mg PO BEDTIME PRN PRN Reason: Insomnia Morphine Sulfate (Morphine Sulfate 4 Mg/Ml Cartridge) 2 mg IVPUSH Q4H PRN; Protocol PRN Reason: Pain, Severe (Pain Scale 7-10) Ondansetron HCl (Ondansetron Hcl 4 Mg/2 Ml Vial) 4 mg IVPUSH Q8H PRN PRN Reason: Nausea and Vomiting Oxycodone HCl (Oxycodone Hcl Immed Release 5 Mg Tablet) 5 mg PO Q6H PRN PRN Reason: Pain, Moderate(Pain Scale 4-6) Polyethylene Glycol (Polyethylene Glycol 3350 17 Gm Powd.Pack) 17 gm PO DAILY PRN PRN Reason: Constipation Sodium Chloride (0.9 % Sodium Chloride Flush 3 Ml Syringe) 3 ml IVFLUSH QSHIFT [facility] Home Medications ?Medication ?Instructions ?Recorded ?Confirmed ?Last Taken ?Type metoprolol succinate 50 mg 50 mg PO DAILY 04/24/2405/0206/09/24 History tablet,extended release 24 hr Physical Exam 2 Vital Signs and Narrative: Vital Signs: Last Vital Signs Temp 98.5 F 08/22/24 18:42 Pulse 74 08/22/24 18:42 Resp 13 08/22/24 18:42 BP 117/65 08/22/24 18:42 Pulse Ox 97 08/22/24 18:42 O2 Del Method Room Air 08/22/24 18:42 BMI result Body Mass Index 29.0 Middle-aged female lying in bed in no distress Neck supple, no JVD Regular rate and rhythm, S1-S2 heard Regular breath sounds bilaterally, no wheezing or crackles appreciated Abdomen with mild tenderness, no rigidity Patient is awake, alert and oriented to self, place, time and person ; no focal motor deficit Psych: Anxious No pedal edema Results Labs 08/22/24 16:33 08/22/24 16:59 Labs: Laboratory Results - last 24 hr 08/22/24 08/22/24 08/22/24 16:33 16:59 18:48 MCV 74.9 L MCH 24.9 L MCHC 33.2 RDW 15.8 Plt Count 287 MPV 11.5 Immature Gran % (Auto) 0.3 Neut % (Auto) 78.8 H Lymph % (Auto) 15.1 L Gage % (Auto) 5.4 Eos % (Auto) 0.1 Baso % (Auto) 0.3 Lymph # (Auto) 2.2 Gage # (Auto) 0.8 Eos # (Auto) 0.0 Baso # (Auto) 0.0 Abs Immat Gran (auto) 0.04 H Absolute Neuts (auto) 11.6 H Absolute Nucleated RBC 0.000 Nucleated RBC % (auto) 0.0 Anion Gap 13 Estim Creat Clear Calc 126.9 Estimated GFR > 60 Random Glucose 87 Calcium 8.1 L D Magnesium 2.0 Total Bilirubin 1.0 AST 21 ALT 7 Alkaline Phosphatase 50 Total Protein 5.9 L Albumin 3.6 Lipase 8 Beta HCG, Quant < 2 Urine Color Yellow Urine Appearance Clear Urine pH 7.0 Ur Specific [place] 1.010 Urine Protein Negative Urine Glucose (UA) Negative Urine Ketones 40 Urine Blood Moderate (2+) H Urine Nitrite Negative Ur Leukocyte Esterase Trace H Urine RBC 0-2 Urine WBC 0-5 Ur Squamous Epith Cells 6-10 Urine Bacteria 1+ Hyaline Casts 6-10 Assessment and Plan (1) Diverticulitis: Status: Acute Plan This is a 38-year-old female with pertinent history of cannabis hyperemesis syndrome, gastroesophageal reflux disease who presents to the emergency department for evaluation of abdominal pain, nausea and vomiting. #. Acute sigmoid diverticulitis: Patient failed outpatient treatment. Will admit patient with IV Zosyn and IV opioids p.r.n. for analgesia. Clear liquid diet and advance as tolerated. Will need outpatient GI follow-up #. Intractable nausea and vomiting in the setting of above. Also component of cannabinoid hyperemesis syndrome: Resuscitated with IV crystalloids and given dopamine antagonist in the ER. Ordered capsaicin cream. Symptomatic treatment with antiemetics p.r.n. #. Gastroesophageal reflux disease: On famotidine Med rec pending DVT prophylaxis: Lovenox Full code Admit as inpatient and will require two night minimum hospital stay for IV antibiotics, tolerance of p.o. intake (as above), which is not possible in a lesser acute setting. Quality Stroke Does the patient have a stroke diagnosis?: No VTE Prior VTE?: No VTE Risk Level:: Medical - moderate - high VTE Device Contraindication: Treatment Not Indicated VTE Drug Contraindication: N/A - Med Ordered
[2024-08-22 19:28] LABS: Cannabinoid Screen Urine POSITIVE (Not Detect)
--- NOTE | 2024-08-22 20:27 | PHA.MEDREC ---
Addendum entered by Kurt Talley [facility] 08/22/24 21:40: MED REC CHECKED BY [facility] Original Note: Pharmacy Consult ? Medication Reconciliation Pharmacy has completed the medication reconciliation. Patient states she is not taking any medications.
[2024-08-22] MEDS: 0.9 % Sodium Chloride Flush 3 ML SYRINGE IVFLUSH (23:37)
[2024-08-22 23:40] VITALS: BP 130/58; PULSE 74; RESP 16; O2SAT 98
[2024-08-23 01:03] VITALS: BP 104/46; PULSE 94; RESP 20; TEMP 36.8; O2SAT 98
[2024-08-23 05:07] LABS: MANUAL DIFF FLAG NO
[2024-08-23 05:10] LABS: Hematocrit 32.7 % (37.0-47.0); Hemoglobin 10.7 g/dl (12.0-16.0); Imm Gran Abs Auto 0.04 X10*3/uL (0.00-0.03); Imm Gran Pct Auto 0.3 % (0.0-0.4); Lymphocytes Absolute Auto 2.5 X10*3/uL (1.2-4.9); Mean Corpuscular HGB Conc 32.7 g/dl (31.0-35.0); Mean Corpuscular Hemoglobin 24.8 pg (27.0-33.0); Mean Corpuscular Volume 75.9 fL (80.0-98.0); NRBC Abs Auto 0.000 X10*3/uL (0.0-0.012); NRBC Pct Auto 0.0 /100WBC (0.0-0.2); Platelet Count 235 X10*3/uL (160-400); Red Blood Count 4.31 X10*6/uL (4.20-5.50); White Blood Count 11.5 X10*3/uL (4.8-10.8)
[2024-08-23 05:23] LABS: Anion Gap 13 (12-20); Blood Urea Nitrogen 8 mg/dL (9-16); Calcium 8.2 mg/dL (8.4-10.2); Carbon Dioxide 21 mmol/L (22-29); Chloride 113 mmol/L (96-108); Creatinine Clr Calc Pharmacy 118.0; Estimated Glomerular Filt Rate > 60; Potassium 3.6 mmol/L (3.3-5.1); Sodium 143 mmol/L (135-145)
[2024-08-23 06:00] VITALS: BP 114/71; PULSE 85; RESP 16; TEMP 36.9; O2SAT 98
[2024-08-23] MEDS: oxyCODONE HCl Immed Release 5 MG TABLET PO (06:30)
--- NOTE | 2024-08-23 07:29 | P.DS_ITS ---
DS: Providers Provider Date of Service: 08/23/24 Date of admission: 08/22/24 18:29 Date of discharge: 08/23/24 Primary care physician: Jazmin Singh NP DS: Diagnosis Discharge Diagnosis (1) Diverticulitis: Status: Inactive DS: Summary Hospital Course Hospital Course: Admission HPI Chief Complaint: abd pain, nausea/vomiting This is a 38-year-old female with pertinent history of cannabis hyperemesis syndrome, gastroesophageal reflux disease who presents to the emergency department for evaluation of abdominal pain, nausea and vomiting. Patient was seen in the ER 1 day prior to presentation and diagnosed with uncomplicated diverticulitis. She was discharged with opioids, p.o. antibiotics. Patient states she was unable to tolerate p.o. intake since being discharged from the ER and continued to have constant lower abdominal pain, progressive and without any relieving factors. Also has been having multiple episodes of nausea and nonbloody emesis. She did not take any antibiotics as she was not tolerating p.o. intake. States she last smoked marijuana 1-2 weeks ago. No fever, chills, chest pain, palpitations, shortness of breath, changes in urinary or bowel habits. In the emergency department, imaging with uncomplicated sigmoid diverticulitis and patient was given IV antibiotics. Hospital course: Patient was admitted for acute uncomplicated diverticulitis associated with nausea and vomiting and was admitted overnight and given IV Zosyn, antiemtics and hydrated and made a more rapid than expected recovery and asked to be discharged the next day. She's is prescribed Augmentin at home. Nausea and vomiting was attributed in large part to canabis use and advised against canabis use because of its tendency to cause cyclical vomiting Time Attestation Discharge Coordination Time (in mins): 45 Quality: Safe Use of Opioids Does Pt have an Active Cancer Diagnosis on the Problem List?: No Quality: Stroke Does the patient have a stroke diagnosis?: No Physical Exam Vital Signs: Vital Signs: Last Vital Signs Temp 98.4 F 08/23/24 06:00 Pulse 85 08/23/24 06:00 Resp 16 08/23/24 06:00 BP 114/71 08/23/24 06:00 Pulse Ox 98 08/23/24 06:00 O2 Del Method Room Air 08/23/24 06:00 BMI result Body Mass Index 29.0 DS: Data Data Completed and Pending Labs on day of discharge: Laboratory Results - last 24 hr 08/22/24 08/22/24 08/22/24 16:33 16:59 18:48 WBC 14.7 H RBC 4.90 Hgb 12.2 Hct 36.7 L MCV 74.9 L MCH 24.9 L MCHC 33.2 RDW 15.8 Plt Count 287 MPV 11.5 Immature Gran % (Auto) 0.3 Neut % (Auto) 78.8 H Lymph % (Auto) 15.1 L Clarke % (Auto) 5.4 Eos % (Auto) 0.1 Baso % (Auto) 0.3 Lymph # (Auto) 2.2 [place] # (Auto) 0.8 Eos # (Auto) 0.0 Baso # (Auto) 0.0 Abs Immat Gran (auto) 0.04 H Absolute Neuts (auto) 11.6 H Absolute Nucleated RBC 0.000 Nucleated RBC % (auto) 0.0 Sodium 142 Potassium 3.7 Chloride 112 H Carbon Dioxide 21 L Anion Gap 13 BUN 8 L Creatinine 0.66 Estim Creat Clear Calc 126.9 Estimated GFR > 60 Random Glucose 87 Calcium 8.1 L D Magnesium 2.0 Total Bilirubin 1.0 AST 21 ALT 7 Alkaline Phosphatase 50 Total Protein 5.9 L Albumin 3.6 Lipase 8 Beta HCG, Quant < 2 Urine Color Yellow Urine Appearance Clear Urine pH 7.0 Ur Specific [place] 1.010 Urine Protein Negative Urine Glucose (UA) Negative Urine Ketones 40 Urine Blood Moderate (2+) H Urine Nitrite Negative Ur Leukocyte Esterase Trace H Urine RBC 0-2 Urine WBC 0-5 Ur Squamous Epith Cells 6-10 Urine Bacteria 1+ Hyaline Casts 6-10 Urine Opiates Screen POSITIVE H Ur Buprenorphine Scrn Not Detected Ur Oxycodone Screen Not Detected Urine Methadone Screen Not Detected Urine Fentanyl Screen Not Detected Ur Barbiturates Screen Not Detected Ur Phencyclidine Scrn Not Detected Ur Amphetamines Screen Not Detected U Benzodiazepines Scrn Not Detected Urine Cocaine Screen Not Detected U Marijuana (THC) Screen POSITIVE H 08/23/24 04:48 WBC 11.5 H RBC 4.31 Hgb 10.7 L Hct 32.7 L MCV 75.9 L MCH 24.8 L MCHC 32.7 RDW 15.8 Plt Count 235 MPV 11.0 Immature Gran % (Auto) 0.3 Neut % (Auto) 69.1 Lymph % (Auto) 22.0 Clarke % (Auto) 7.4 Eos % (Auto) 0.8 Baso % (Auto) 0.4 Lymph # (Auto) 2.5 [place] # (Auto) 0.9 Eos # (Auto) 0.1 Baso # (Auto) 0.1 Abs Immat Gran (auto) 0.04 H Absolute Neuts (auto) 7.9 Absolute Nucleated RBC 0.000 Nucleated RBC % (auto) 0.0 Sodium 143 Potassium 3.6 Chloride 113 H Carbon Dioxide 21 L Anion Gap 13 BUN 8 L Creatinine 0.71 Estim Creat Clear Calc 118.0 Estimated GFR > 60 Random Glucose 78 Calcium 8.2 L Magnesium Total Bilirubin AST ALT Alkaline Phosphatase Total Protein Albumin Lipase Beta HCG, Quant Urine Color Urine Appearance Urine pH Ur Specific [place] Urine Protein Urine Glucose (UA) Urine Ketones Urine Blood Urine Nitrite Ur Leukocyte Esterase Urine RBC Urine WBC Ur Squamous Epith Cells Urine Bacteria Hyaline Casts Urine Opiates Screen Ur Buprenorphine Scrn Ur Oxycodone Screen Urine Methadone Screen Urine Fentanyl Screen Ur Barbiturates Screen Ur Phencyclidine Scrn Ur Amphetamines Screen U Benzodiazepines Scrn Urine Cocaine Screen U Marijuana (THC) Screen Discharge Plan Discharge Anticipated Discharge Date/Time: 08/23/24 07:31 Patient Disposition: Home, Self-Care Discharge Diagnosis: Acute diverticulitis, cyclical vomiting syndrome Referrals: Jazmin Singh NP [Primary Care Provider, Internal Medicine] - 1 Week Discharge Medications: New amoxicillin-pot clavulanate 875-125 mg tablet 1 tab PO BID Qty: 14 0RF No Action promethazine 50 mg tablet 50 mg PO Q6H PRN (Reason: nausea) Qty: 10 0RF famotidine 20 mg tablet 20 mg PO BID Discharge Orders: Discharge Order (Routine); Ordered 08/23/24 Ordered By: Donato Doshi Diet: Advance to usual diet Activity on Discharge: As tolerated Stand Alone Forms: Patient Portal Discharge page Print Language: Icelandic Care Plan Goals: recovery from diverticulitis Health Concerns: diverticulitis Plan of Treatment: Take Augmentin as directed Zofran for nausea and vomiting follow up with your doctor in a week, call for appointment if your symptoms ie abdominal pain, nause and vomiting get worse, return to emergency or seek help Assessment: see above Discharge Date/Time: 08/23/24 08:23
--- NOTE | 2024-08-23 07:37 | PC.NURSE ---
Care of Pt assumed at change of shift. Pt expresses that she would like to be discharged at this time. Pt made aware that she now has an inpatient room assignment and states she does not want it. Attending Glenda made aware of Pts wishes. Per Dr. Doshi, Pt will need to wait until an provider rounds on her before d/c can occur. bulk plant agent made aware. MAR reviewed with noted 3 IV infusions with no date/end time. NS 1000ml on 08/22/24 started at 1617 NS 1000ml on 08/22/24 started at 1827 Zosyn on 08/22/24 started at 1833. This RN updated MAR by entering end times for the above noted IV infusions.
[2024-08-23 08:22] VITALS: BP 114/71; PULSE 85; RESP 16; TEMP 36.9; O2SAT 98
--- NOTE | 2024-08-23 15:28 | PC.NURSE ---
Discharged from ED.
== END 2024-08-23 08:23 | disposition home or self-care (01) | DRG 244 ==
LOC: HO.ED 18:45 → HO.EDOVER 18:56 → HO.S3 08-23 06:47 → HO.EDOVER 08-23 07:50
PROVIDERS: Physician Assistant; Admitting Provider Internal Medicine; Emergency Provider Emergency Medicine; PCP Nurse Practitioner Family; Visit Provider Internal Medicine
DX: K57.32 Diverticulitis of large intestine without perforation or abscess without bleeding (principal); F12.90 Cannabis use, unspecified, uncomplicated; K21.9 Gastro-esophageal reflux disease without esophagitis; R11.2 Nausea with vomiting, unspecified; Z79.899 Other long term (current) drug therapy
CPT/HCPCS: 36415; 80048; 80053; 80307; 81001; 83690; 83735; 84702; 85025; 93005; 99221; 99285; J0737; J1200; J1790; J2543

== ENCOUNTER → 2024-08-22 16:15 | Outpatient (BNV) | payer OTHER, SELFPAY | PROVIDERS: Admitting Provider Internal Medicine; Emergency Provider Emergency Medicine; PCP Nurse Practitioner Family; Visit Provider Internal Medicine | DX: R10.9 Unspecified abdominal pain (principal) | CPT/HCPCS: 93010 ==

== ENCOUNTER → 2024-08-22 18:29 | Outpatient (BNV) | payer OTHER, SELFPAY | PROVIDERS: Admitting Provider Internal Medicine; Emergency Provider Emergency Medicine; PCP Nurse Practitioner Family; Visit Provider Student in an Organized Health Care Education/Training Program | DX: K57.92 Diverticulitis of intestine, part unspecified, without perforation or abscess without bleeding (principal) | CPT/HCPCS: 99222 ==

== ENCOUNTER 2024-08-26 19:40 | Emergency (ER) | payer OTHER, SELFPAY ==
[2024-08-26 19:48] VITALS: BP 142/60; PULSE 122; RESP 19; TEMP 36.8; O2SAT 98; BMI 29.0
--- NOTE | 2024-08-26 19:48 | ED_ITS ---
HPI - General Adult General Chief complaint: Abdominal Pain Stated complaint: diverticulitis Time Seen by Provider: 08/26/24 20:29 History of Present Illness ED Provider: Daquan KUMAR narrative: The patient is a 39-year-old female who has a history of multiple emergency room visits related to nausea and vomiting. She arrives today by ambulance severe nausea and vomiting. She was recently diagnosed with diverticulitis. She was seen here on August 21 for diverticulitis on CAT scan that had no complications. She was discharged from the emergency room but returned the next day with a complaint of nausea and vomiting. She was hospitalized at that point on August 22. She spent one night in the hospital an crusted discharge the next morning to continue outpatient Augmentin. She presents today with a recurrence of abdominal pain, nausea, and vomiting. Related Data Previous Rx's ?Medication ?Instructions ?Recorded amoxicillin 875 mg-potassium 1 tab PO BID #14 tabs clavulanate 125 mg tablet promethazine 50 mg tablet 50 mg PO Q6H PRN nausea #10 tabs 08/26/24 Allergies Allergy/AdvReac Type Severity Reaction Status Date / Time hydromorphone (Dilaudid) Allergy Unknown hives Verified 08/26/24 19:52 metoclopramide (From Reglan) Allergy Unknown Verified 08/26/24 19:52 ibuprofen (From MOTRIN) AdvReac Mild STOMACH Verified 08/26/24 19:52 UPSET Review of Systems 2 Review of Systems: Yes all other systems are reviewed and are negative PMFSH Past Medical History Medical History Cannabis-induced disorder Shortness of breath Sinus tachycardia Cyclical vomiting Anxiety Ureteric calculus Family History Family History Father Heart disease Other Hypokalemia Social History Social History Household Members: Spouse and Children Housing: House Do you presently have visiting nurse or other home services: No Alcohol intake: never Patient Tobacco Use Status: Never used Tobacco Smoked in Last 30 Days: No Use of substances other than those prescribed or required for medical reasons: No Substance Use Type: Marijuana Advance Directives: No Advance Directives Information Provided: No Do you have a plan to hurt others: No Plan Patient : No service: No Physical Exam ED Vital Signs: Vital Signs - 24 hr 08/26/24 19:48 08/26/24 22:03 08/26/24 22:05 Temperature 98.2 F 98.1 F 98.1 F Pulse Rate 122 H 79 79 Respiratory Rate 19 18 18 Blood Pressure 142/60 H 134/76 134/76 Pulse Oximetry 98 98 98 Oxygen Delivery Method Room Air Room Air Room Air BMI result Body Mass Index 29.0 Const Other: The patient was awake and alert. She was complaining of severe nausea and was very loud and agitated in her complaints. Orientation/consciousness: patient oriented x3 HENMT Other: Face is symmetrical, mucous membranes moist Eyes Other: Pupils are round equal, conjunctivae are clear, extraocular movements intact General: appearance normal, both eyes and all related structures Neck Neck: Yes normal visual inspection and Yes full ROM Resp Effort & Inspection: normal respiratory effort Auscultation: clear to auscultation bilaterally Cardio Rate: regular rate Rhythm: regular rhythm Heart sounds: S1 normal heart sound present and S2 normal heart sound present GI Other: Abdomen is soft. She seems to have diffuse tenderness but no focal than in his Skin Other: Skin is dry and unremarkable Neuro General: patient oriented x3, moves all extremities, no focal motor deficits and CN's II-XI intact bilaterally Extrem Other: No peripheral edema Course Course Course Narrative: RME, this is a rapid medical exam performed by Fer Hernandez please refer to primary provider for complete H&P- 39-year-old female presents for evaluation of abdominal pain with nausea, vomiting. She was here last week and diagnosed with diverticulitis. She also has a history of cannabis hyperemesis syndrome. Plan for repeat labs Medications Administered Discontinued Medications Generic Name Dose Route Start Last Admin Trade Name Freq PRN Reason Stop Dose Admin Diphenhydramine HCl 50 mg 08/26/24 20:30 08/26/24 20:46 Diphenhydramine Hcl 50 Mg/Ml Vial IVPUSH 08/26/24 20:31 50 mg ONCE ONE Administration Droperidol 1.25 mg 08/26/24 20:30 08/26/24 20:46 Droperidol 5 Mg/2 Ml Vial IVPUSH 08/26/24 20:31 1.25 mg ONCE ONE Administration Droperidol 1.25 mg 08/26/24 20:59 08/26/24 21:20 Droperidol 5 Mg/2 Ml Vial IVPUSH 08/26/24 21:00 Not Given ONCE ONE Sodium Chloride 1,000 mls @ 999 mls/hr 08/26/24 20:45 08/26/24 21:58 Ns IV 08/26/24 21:45 Infused .Q1H1M KANDY Infusion Medical Decision Making Medical Decision Making [facility] Narrative: The patient is a 39-year-old female with a history of multiple emergency room visits for nausea and vomiting. It is my impression that she has cannabis hyperemesis. She also recently had a case of uncomplicated diverticulitis. She presented today in a manner similar to previous presentations with extremely histrionic nausea and retching. She was given IV droperidol, IV diphenhydramine, and IV fluids. Labs were sent. She was observed. Labs are unremarkable. She slept for awhile and then requested discharge. I spoke to her about marijuana use and hyperemesis. She denies using marijuana. Lab Data 08/26/24 19:59 08/26/24 19:59 Labs: Lab Results 08/26/24 Range/Units 19:59 WBC 14.5 H (4.8-10.8) X10*3/uL RBC 5.01 (4.20-5.50) X10*6/uL Hgb 12.4 (12.0-16.0) g/dl Hct 37.9 (37.0-47.0) % MCV 75.6 L (80.0-98.0) fL MCH 24.8 L (27.0-33.0) pg MCHC 32.7 (31.0-35.0) g/dl RDW 15.5 (11.0-16.0) % Plt Count 351 D (160-400) X10*3/uL MPV 11.0 (9.4-12.3) fL Immature Gran % (Auto) 0.3 (0.0-0.4) % Neut % (Auto) 64.4 (45-73) % Lymph % (Auto) 27.9 (20-40) % [place]uyler % (Auto) 6.4 (2-11) % Eos % (Auto) 0.6 (0-4) % Baso % (Auto) 0.4 (0-2) % Lymph # (Auto) 4.0 (1.2-4.9) X10*3/uL [place] # (Auto) 0.9 (0.1-1.2) X10*3/uL Eos # (Auto) 0.1 (0.0-0.4) X10*3/uL Baso # (Auto) 0.1 (0.0-0.2) X10*3/uL Abs Immat Gran (auto) 0.04 H (0.00-0.03) X10*3/uL Absolute Neuts (auto) 9.3 H (2.0-8.3) x10*3/uL Absolute Nucleated RBC 0.000 (0.0-0.012) X10*3/uL Nucleated RBC % (auto) 0.0 (0.0-0.2) /100WBC Sodium 142 (135-145) mmol/L Potassium 3.3 (3.3-5.1) mmol/L Chloride 107 (96-108) mmol/L Carbon Dioxide 25 (22-29) mmol/L Anion Gap 13 (12-20) BUN 12 (9-16) mg/dL Creatinine 0.74 (0.5-1.4) mg/dL Estim Creat Clear Calc 112.1 Estimated GFR > 60 Random Glucose 136 H (60-115) mg/dL Calcium 9.4 D (8.4-10.2) mg/dL Total Bilirubin 0.4 (0.0-1.0) mg/dL AST 16 (5-31) U/L ALT 14 (0-31) U/L Alkaline Phosphatase 54 (39-117) U/L C-Reactive Protein 0.54 H (< or = 0.50) mg/dL Total Protein 7.4 (6.5-8.0) g/dL Albumin 4.5 (3.5-5.0) g/dL Lipase 11 (8-78) U/L Beta HCG, Quant < 2 mIU/mL Discharge Plan Discharge Clinical Impression: Nausea and vomiting Patient Disposition: Home, Self-Care Additional Instructions: I have sent a prescription for medication called promethazine to your pharmacy in [place]. You may use as medication for any possible recurrence of nausea. Please make sure that you avoid marijuana. Marijuana can lead to episodes of severe vomiting. Please work on getting a primary care doctor. You has been given some contact information for local primary care offices. Return to the emergency room if significantly worse. Prescriptions: New promethazine 50 mg tablet 50 mg PO Q6H PRN (Reason: nausea) Qty: 10 0RF No Action amoxicillin-pot clavulanate 875-125 mg tablet 1 tab PO BID Qty: 14 0RF Referrals: [facility] [place] [facility] [Provider Group, Internal Medicine] [facility] [place] [facility] [Provider Group, Primary Care] Kimberly Goldberg MD [Physician, Internal Medicine] Interventions: ED Discharge Assessment Last Done: 08/26/24 22:05 Discharge Date/Time: 08/26/24 22:05 Print Language: Cymraes
--- NOTE | 2024-08-26 19:51 | MHC.EDTECH ---
This tech was unable to acquire Strepp test pt kept on blocking the inside of his mouth with his tongue and kept on moving away. entry level business analyst notified
--- NOTE | 2024-08-26 20:01 | MHC.EDTECH ---
UTO EKG due to pt unable to be still due to pain
[2024-08-26 20:03] LABS: MANUAL DIFF FLAG NO
[2024-08-26 20:12] LABS: Hematocrit 37.9 % (37.0-47.0); Hemoglobin 12.4 g/dl (12.0-16.0); Imm Gran Abs Auto 0.04 X10*3/uL (0.00-0.03); Imm Gran Pct Auto 0.3 % (0.0-0.4); Lymphocytes Absolute Auto 4.0 X10*3/uL (1.2-4.9); Mean Corpuscular HGB Conc 32.7 g/dl (31.0-35.0); Mean Corpuscular Hemoglobin 24.8 pg (27.0-33.0); Mean Corpuscular Volume 75.6 fL (80.0-98.0); NRBC Abs Auto 0.000 X10*3/uL (0.0-0.012); NRBC Pct Auto 0.0 /100WBC (0.0-0.2); Platelet Count 351 X10*3/uL (160-400); Red Blood Count 5.01 X10*6/uL (4.20-5.50); White Blood Count 14.5 X10*3/uL (4.8-10.8)
[2024-08-26 20:24] LABS: Alanine Aminotransferase 14 U/L (0-31); Albumin Level 4.5 g/dL (3.5-5.0); Alkaline Phosphatase 54 U/L (39-117); Anion Gap 13 (12-20); Aspartate Amino Transferase 16 U/L (5-31); Blood Urea Nitrogen 12 mg/dL (9-16); Calcium 9.4 mg/dL (8.4-10.2); Carbon Dioxide 25 mmol/L (22-29); Chloride 107 mmol/L (96-108); Creatinine Clr Calc Pharmacy 112.1; Estimated Glomerular Filt Rate > 60; Lipase 11 U/L (8-78); Potassium 3.3 mmol/L (3.3-5.1); Sodium 142 mmol/L (135-145); Total Protein 7.4 g/dL (6.5-8.0)
--- NOTE | 2024-08-26 20:38 | MHC.EDTECH ---
This tech tried to do EKG, patient is facing down on the bed, refusing to sit or lay on the bed. Explained to patient that EKG is necessary to check what is happening, patient screaming saying I know what I have, I have diverticulitis .
--- NOTE | 2024-08-26 20:46 | PC.NURSE ---
pt from home, a&ox4, respirations even and unlabored. pt reports onset of abdominal pain, vaginal burning and flank pain, reports she has been on antibiotics and has not been able to complete the course due to vomiting. pt denies urinary discomfort. 20g placed in right ac, medicated per apr.
[2024-08-26 22:03] VITALS: BP 134/76; PULSE 79; RESP 18; TEMP 36.7; O2SAT 98
[2024-08-26 22:05] VITALS: BP 134/76; PULSE 79; RESP 18; TEMP 36.7; O2SAT 98
== END 2024-08-26 22:05 | disposition home or self-care (01) ==
PROVIDERS: Physician Assistant; Emergency Provider Emergency Medicine
DX: R11.2 Nausea with vomiting, unspecified (principal); F12.90 Cannabis use, unspecified, uncomplicated
CPT/HCPCS: 36415; 80053; 83690; 84702; 85025; 86140; 96361; 96374; 96375; 99284; J1200; J1790

== ENCOUNTER 2024-09-05 19:01 | Inpatient (IN) | payer OTHER, SELFPAY ==
--- NOTE | ~2024-09-05 | CT_ITS ---
CLINICAL HISTORY: diverticulitis?? CT abdomen and pelvis with contrast Comparison: 08/21/2024 Findings: Sigmoid diverticulitis pattern has improved. No free air or fluid collection is identified. Motion artifact limits abdominal assessment. Lung bases are clear. No acute bony abnormalities. Liver and spleen within normal limits. Pancreas and adrenal glands unremarkable. Gallbladder obscured by motion artifact. Bilateral nonobstructing renal stones. These are grossly unchanged in position. No ureteral stone or hydronephrosis. Abdominal aorta is normal in caliber. No free fluid or adenopathy in the pelvis. Appendix not identified. 2.2 cm complex or hemorrhagic right ovarian cyst. Uterus normal size. No left adnexal abnormality. Impression: Improving sigmoid diverticulitis without complicating features This document has been electronically signed by: Jose Luis Chapman MD on 09/05/2024 23:14:33
--- NOTE | 2024-09-05 19:36 | ED.ABDPAIN ---
HPI - Abdominal Pain General Chief Complaint: Abdominal Pain Stated Complaint: Lower abdominal and lower back pain Time Seen by Provider: 09/05/24 21:37 Source: patient Limitations: no limitations History of Present Illness ED Provider: Ashley Fulton PA-C HPI narrative: 39-year-old female with a history of cannabis hyperemesis syndrome, GERD, recently diagnosed with diverticulitis on August 21, who return to the emergency room due to intractable pain nausea vomiting, admitted at that time for diverticulitis, presents with ongoing abdominal pain. Patient states her lower abdominal discomfort is not resolving. Associated nausea vomiting and ongoing diarrhea. Patient has now developed dysuria, itchy white vaginal discharge and rectal pruritus. Denies fever. Patient states she completed the course of antibiotics as directed. Related Data Previous Rx's ?Medication ?Instructions ?Recorded amoxicillin 875 mg-potassium 1 tab PO BID #14 tabs 08/25/24 clavulanate 125 mg tablet promethazine 50 mg tablet 50 mg PO Q6H PRN nausea #10 tabs 08/26/24 Allergies Allergy/AdvReac Type Severity Reaction Status Date / Time hydromorphone (Dilaudid) Allergy Unknown hives Verified 09/05/24 19:39 metoclopramide (From Reglan) Allergy Unknown Verified 09/05/24 19:39 ibuprofen (From MOTRIN) AdvReac Mild STOMACH Verified 09/05/24 19:39 UPSET Review of Systems Review of Systems Yes all other systems are reviewed and are negative Constitutional: Denies fatigue and Denies fever(s) Cardiovascular: Denies chest pain and Denies dyspnea Respiratory: Denies cough and Denies dyspnea Gastrointestinal: Reports abdominal pain, Reports diarrhea, Reports nausea and Reports vomiting Genitourinary: Reports dysuria and Reports vaginal discharge Endocrine: Denies fatigue PMFSH Past Medical History Attestation statement: The following information was validated with the patient. Medical History Cannabis-induced disorder Shortness of breath Sinus tachycardia Cyclical vomiting Anxiety Ureteric calculus Family History Family History Father Heart disease Other Hypokalemia Social History Social History Household Members: Spouse and Children Housing: House Do you presently have visiting nurse or other home services: No Alcohol intake: never Patient Tobacco Use Status: Never used Tobacco Substance Use Type: Marijuana Advance Directives: No Advance Directives Information Provided: No service: No Physical Exam ED Vital Signs: Vital Signs - 24 hr 09/05/24 19:37 09/05/24 23:53 Temperature 98.2 F Pulse Rate 136 H 81 Respiratory Rate 22 H 20 Blood Pressure 176/70 H 132/100 H Pulse Oximetry 100 99 Oxygen Delivery Method Room Air Room Air BMI result Body Mass Index 31.7 Const Other: Alert, Orientation/consciousness: patient oriented x3 Resp Effort & Inspection: normal respiratory effort Cardio Other: Normal peripheral perfusion GI Other: Abdomen is soft, nondistended, moderate tenderness across lower abdomen, most prominent over left lower quadrant and suprapubic region, no guarding, her perineum appears chafed Other: Normal external genitalia, evidence of yeast infection given the nature of the vaginal discharge Skin Other: Warm dry no rash Neuro General: patient oriented x3, gait normal, no focal motor deficits and CN's II-XI intact bilaterally Psych Other: Cooperative Course Course Course Narrative: This is an RME performed by Rhonda Gray CNP: Additional HPI, ROS, PE not included below will be deferred to primary provider. Patient is a 39-year-old female who presents emergency department for evaluation. She states that 2 weeks ago she was diagnosed with diverticulitis, symptoms never improved. Over the past 3 days she has been experiencing severe pain to the lower back radiating into the lower abdomen, has associated rectal pain and itching, vaginal pain and itching, reports return of fever 104 max. 08/21/2024 CT revealing uncomplicated sigmoid diverticulitis, treated with Cipro and Flagyl Plan: Serum labs, urinalysis, BV panel Medical Decision Making Medical Decision Making MDM Narrative: 39-year-old female with a history of cannabis hyperemesis syndrome, GERD, recently diagnosed with diverticulitis on August 21, who return to the emergency room due to intractable pain nausea vomiting, admitted at that time for diverticulitis, presents with ongoing abdominal pain. Patient states her lower abdominal discomfort is not resolving. Associated nausea vomiting and ongoing diarrhea. Patient has now developed dysuria, itchy white vaginal discharge and rectal pruritus. Denies fever. Patient states she completed the course of antibiotics as directed. Problem: Known diverticulitis, history: Per patient I have considered the following differential diagnoses: Refractory diverticulitis, worsening diverticulitis, C diff, other infectious diarrhea, vaginitis/candidal infection, UTI Plan: Screening labs including a urinalysis were obtained from triage, the patient has a worsening leukocytosis, evidence of UTI,. Based on my exam, she has a vaginal candidal infection, we will give Diflucan. Repeating the CT scan. We will be giving fluid morphine and Zofran. My concern is that her diverticulitis has worsened, or has remained refractory. We will order stool cultures as well. I have independently reviewed the following tests: Labs: Increased leukocytosis, left shift, no anemia, no electrolyte abnormality, lactic 1.5, not CT abdomen and pelvis:Findings: Sigmoid diverticulitis pattern has improved. No free air or fluid collection is identified. Motion artifact limits abdominal assessment. Lung bases are clear. No acute bony abnormalities. Liver and spleen within normal limits. Pancreas and adrenal glands unremarkable. Gallbladder obscured by motion artifact. Bilateral nonobstructing renal stones. These are grossly unchanged in position. No ureteral stone or hydronephrosis. Abdominal aorta is normal in caliber. No free fluid or adenopathy in the pelvis. Appendix not identified. 2.2 cm complex or hemorrhagic right ovarian cyst. Uterus normal size. No left adnexal abnormality. Impression: Improving sigmoid diverticulitis without complicating features Lab Data 09/05/24 20:01 09/05/24 20:01 Labs: Lab Results 09/05/24 09/05/24 09/05/24 Range/Units 20:01 20:05 21:13 WBC 17.1 H (4.8-10.8) X10*3/uL RBC 5.34 (4.20-5.50) X10*6/uL Hgb 13.2 (12.0-16.0) g/dl Hct 39.4 (37.0-47.0) % MCV 73.8 L (80.0-98.0) fL MCH 24.7 L (27.0-33.0) pg MCHC 33.5 (31.0-35.0) g/dl RDW 15.9 (11.0-16.0) % Plt Count 316 (160-400) X10*3/uL MPV 10.5 (9.4-12.3) fL Immature Gran % (Auto) 0.4 (0.0-0.4) % Neut % (Auto) 62.5 (45-73) % Lymph % (Auto) 28.3 (20-40) % [place] % (Auto) 7.5 (2-11) % Eos % (Auto) 0.9 (0-4) % Baso % (Auto) 0.4 (0-2) % Lymph # (Auto) 4.8 (1.2-4.9) X10*3/uL [place] # (Auto) 1.3 H (0.1-1.2) X10*3/uL Eos # (Auto) 0.2 (0.0-0.4) X10*3/uL Baso # (Auto) 0.1 (0.0-0.2) X10*3/uL Abs Immat Gran (auto) 0.06 H (0.00-0.03) X10*3/uL Absolute Neuts (auto) 10.7 H (2.0-8.3) x10*3/uL Absolute Nucleated RBC 0.000 (0.0-0.012) X10*3/uL Nucleated RBC % (auto) 0.0 (0.0-0.2) /100WBC Sodium 140 (135-145) mmol/L Potassium 3.7 (3.3-5.1) mmol/L Chloride 109 H (96-108) mmol/L Carbon Dioxide 21 L (22-29) mmol/L Anion Gap 14 (12-20) BUN 14 (9-16) mg/dL Creatinine 0.76 (0.5-1.4) mg/dL Estim Creat Clear Calc 98.3 Estimated GFR > 60 Random Glucose 94 (60-115) mg/dL Lactic Acid 1.5 (0.5-2.0) mmol/L Calcium 9.3 (8.4-10.2) mg/dL Total Bilirubin 0.4 (0.0-1.0) mg/dL AST 21 (5-31) U/L ALT 22 (0-31) U/L Alkaline Phosphatase 57 (39-117) U/L Total Protein 7.6 (6.5-8.0) g/dL Albumin 4.7 (3.5-5.0) g/dL Lipase 16 (8-78) U/L Urine Color Yellow Urine Appearance Clear Urine pH 6.5 (5.0-9.0) Ur Specific [place] 1.015 (1.005-1.025) Urine Protein Trace (Neg-Trace) mg/dL Urine Glucose (UA) Negative (Negative) mg/dL Urine Ketones Negative (Negative) mg/dL Urine Blood Moderate (2+) H (Negative) Urine Nitrite Negative (Negative) Ur Leukocyte Esterase Small (1+) H (Negative) Urine RBC >20 H (0-2) /HPF Urine WBC 6-10 H (0-5) /HPF Ur Squamous Epith Cells 0-2 (0-2) /HPF Urine Bacteria None Seen (None Seen) Hyaline Casts 0-2 (0-2) /LPF Urine Test NEGATIVE (NEGATIVE) Medications Administered Generic Name Dose Route Start Last Admin Trade Name Freq PRN Reason Stop Dose Admin Lactated Ringer's 1,000 mls @ 100 mls/hr 09/06/24 00:15 09/06/24 00:19 Lr IVCONT 100 mls/hr .Q10H KANDY Administration Discontinued Medications Generic Name Dose Route Start Last Admin Trade Name Freq PRN Reason Stop Dose Admin Fluconazole 150 mg 09/05/24 22:14 09/05/24 22:29 Fluconazole 150 Mg Tablet PO 09/05/24 22:15 150 mg ONCE ONE Administration Sodium Chloride 1,000 mls @ 999 mls/hr 09/05/24 22:15 09/05/24 22:29 Ns IV 09/05/24 23:15 999 mls/hr .Q1H1M KANDY Administration Piperacillin Sod/Tazobactam 50 mls @ 100 mls/hr 09/05/24 23:33 09/06/24 00:18 Sod 3.375 gm/ Sodium Chloride IV 09/06/24 00:02 100 mls/hr ONCE ONE Administration Iohexol 85 ml 09/05/24 22:48 09/05/24 22:49 Iohexol 350 Mg/Ml 100 Ml Infus..Btl IV 09/05/24 22:49 85 ml ONCE ONE Administration Morphine Sulfate 4 mg 09/05/24 22:14 09/05/24 22:29 Morphine Sulfate 4 Mg/Ml Cartridge IVPUSH 09/05/24 22:15 4 mg ONCE ONE Administration Protocol Morphine Sulfate 4 mg 09/05/24 23:33 09/06/24 00:18 Morphine Sulfate 4 Mg/Ml Cartridge IVPUSH 09/05/24 23:34 4 mg ONCE ONE Administration Protocol Discharge Plan Discharge Clinical Impression: Diverticulitis, Urinary tract infection, Candidiasis of vulva and vagina Patient Disposition: Admitted As Inpatient Print Language: Ukrainian
[2024-09-05 19:37] VITALS: BP 176/70; PULSE 136; RESP 22; TEMP 36.8; O2SAT 100; BMI 31.7
[2024-09-05 20:05] LABS: MANUAL DIFF FLAG NO
[2024-09-05 20:07] LABS: Hematocrit 39.4 % (37.0-47.0); Hemoglobin 13.2 g/dl (12.0-16.0); Imm Gran Abs Auto 0.06 X10*3/uL (0.00-0.03); Imm Gran Pct Auto 0.4 % (0.0-0.4); Lymphocytes Absolute Auto 4.8 X10*3/uL (1.2-4.9); Mean Corpuscular HGB Conc 33.5 g/dl (31.0-35.0); Mean Corpuscular Hemoglobin 24.7 pg (27.0-33.0); Mean Corpuscular Volume 73.8 fL (80.0-98.0); NRBC Abs Auto 0.000 X10*3/uL (0.0-0.012); NRBC Pct Auto 0.0 /100WBC (0.0-0.2); Platelet Count 316 X10*3/uL (160-400); Red Blood Count 5.34 X10*6/uL (4.20-5.50); White Blood Count 17.1 X10*3/uL (4.8-10.8)
[2024-09-05 20:12] LABS: Appearance Urine Clear; Glucose Urine UA Negative (Negative); PH 6.5 (5.0-9.0); Specific Gravity - Urine 1.015 (1.005-1.025); UMIC TRIGGER UACC YES
[2024-09-05 20:13] LABS: UPreg QC Valid YES
[2024-09-05 20:14] LABS: UACC Culture Trigger YES
[2024-09-05 20:20] LABS: Alanine Aminotransferase 22 U/L (0-31); Albumin Level 4.7 g/dL (3.5-5.0); Alkaline Phosphatase 57 U/L (39-117); Anion Gap 14 (12-20); Aspartate Amino Transferase 21 U/L (5-31); Blood Urea Nitrogen 14 mg/dL (9-16); Calcium 9.3 mg/dL (8.4-10.2); Carbon Dioxide 21 mmol/L (22-29); Chloride 109 mmol/L (96-108); Creatinine Clr Calc Pharmacy 98.3; Estimated Glomerular Filt Rate > 60; Lipase 16 U/L (8-78); Potassium 3.7 mmol/L (3.3-5.1); Sodium 140 mmol/L (135-145); Total Protein 7.6 g/dL (6.5-8.0)
--- NOTE | 2024-09-05 20:39 | ECG_ITS ---
Test Reason : TACHY Blood Pressure : */* mmHG Vent. Rate : 101 BPM Atrial Rate : 101 BPM P-R Int : 128 ms QRS Dur : 78 ms QT Int : 356 ms P-R-T Axes : 36 40 63 degrees QTcB Int : 461 ms Sinus tachycardia Otherwise normal ECG When compared with ECG of 22-Aug-2024 16:20, No significant change was found Referred By: Yaritza Gray Electronically Signed By: MARIAELENA DOE MD
[2024-09-05 22:00] VITALS: PULSE 106
[2024-09-05] MEDS: iohexoL 350 MG/ML 100 ML INFUS..BTL 85 ML IV (22:49)
[2024-09-05 23:53] VITALS: BP 132/100; PULSE 81; RESP 20; O2SAT 99
[2024-09-06] MEDS: Lactated Ringers 1,000 ML 100 ML IVCONT ×2 (00:19→10:38)
--- NOTE | 2024-09-06 00:35 | P.HPHOSP_ITS ---
History of Present Illness Date of Service: 09/06/24 Attending physician on admission: Dejon Wheatley Chief Complaint: abd pain Pt is a 39 yo female with a pmhx significant for history of cannabis hyperemesis syndrome, GERD, recently diagnosed with diverticulitis on August 21 discharged home with augmentin, who returned to the ED today due to persistent low back pain, radiating to her lower abd in the suprapubic region and LLQ. she reports that she completed the augmentin and her sx have not improved. she denies nausea or vomting but does have frequent diarrhea, no blood in the stool. she also reports vaginal discharge, burning and itching, possible yeast infection as well as dysuria. she is unable to sit comfortably. no fever or chills. Review of Systems 2 Constitutional: Constitutional: Denies body ache(s), Denies chills, Denies fatigue, Denies fever(s) and Denies headache(s) Eyes: Eyes: Denies change in vision ENT: Denies headache(s), Denies nasal congestion and Denies sore throat Cardiovascular: Cardiovascular: Denies chest pain, Denies rapid heart rate, Denies leg edema and Denies dyspnea Respiratory: Respiratory: Denies chest congestion, Denies cough, Denies dyspnea and Denies wheezing Gastrointestinal: Gastrointestinal: Reports as per HPI Genitourinary: Genitourinary: Reports as per HPI Musculoskeletal: Musculoskeletal: Reports back pain and Denies myalgias Integumentary/Breasts: Skin/Breast: Denies rash Neurologic: Denies confusion and Denies headache(s) Psychiatric: Psychiatric: Denies confusion Endocrine: Endocrine: Denies fatigue Hematologic/Lymphatic: Hematologic/Lymphatic: Denies easy bleeding and Denies easy bruising Allergic/Immunologic: Allergic/Immunologic: Denies wheezing [facility] Medical History (Updated 09/06/24 @ 00:50 by Loli Brooks PA-C) Diverticulitis Cannabis-induced disorder Shortness of breath Sinus tachycardia Cyclical vomiting Anxiety Ureteric calculus Functional capacity: independent ambulation Family History Father Heart disease Other Hypokalemia Social History Household Members: Spouse and Children Housing: House Do you presently have visiting nurse or other home services: No Alcohol intake: never Patient Tobacco Use Status: Never used Tobacco Substance Use Type: Marijuana Advance Directives: No Advance Directives Information Provided: No service: No Narrative: no smoking, or etoh, uses marijuana Meds Allergies Allergy/AdvReac Type Severity Reaction Status Date / Time hydromorphone (Dilaudid) Allergy Unknown hives Verified 09/05/24 19:39 metoclopramide (From Reglan) Allergy Unknown Verified 09/05/24 19:39 ibuprofen (From MOTRIN) AdvReac Mild STOMACH Verified 09/05/24 19:39 UPSET Active Medications: Current Medications Acetaminophen (Acetaminophen 325 Mg Tablet) 975 mg PO Q6H PRN PRN Reason: Pain, Mild 1-3,fever,headache Calcium Carbonate (Calcium Carbonate 750 Mg Tab.Chew) 750 mg PO Q4H PRN PRN Reason: Heartburn Enoxaparin Sodium (Enoxaparin Sodium 40 Mg/0.4 Ml Syringe) 40 mg SUBCUT Q24H [facility] Lactated Ringer's (Lr) 1,000 mls @ 100 mls/hr IVCONT .Q10H [facility] Last Admin: 09/06/24 00:19 Dose: 100 mls/hr Piperacillin Sod/Tazobactam (Sod 3.375 gm/ Sodium Chloride) 50 mls @ 100 mls/hr IV Q6H [facility] Magnesium Hydroxide (Milk Of Magnesia 30 Ml Oral.Susp) 30 ml PO DAILY PRN PRN Reason: Constipation Melatonin (Melatonin 3 Mg Tablet) 6 mg PO BEDTIME PRN PRN Reason: Insomnia Morphine Sulfate (Morphine Sulfate 4 Mg/Ml Cartridge) 2 mg IVPUSH Q4H PRN; Protocol PRN Reason: Pain, Severe (Pain Scale 7-10) Ondansetron HCl (Ondansetron Hcl 4 Mg/2 Ml Vial) 4 mg IVPUSH Q8H PRN PRN Reason: Nausea and Vomiting Oxycodone HCl (Oxycodone Hcl Immed Release 5 Mg Tablet) 5 mg PO Q6H PRN PRN Reason: Pain, Moderate(Pain Scale 4-6) Sodium Chloride (0.9 % Sodium Chloride Flush 3 Ml Syringe) 3 ml IVFLUSH QSHIFT [facility] Physical Exam 2 Vital Signs and Narrative: Vital Signs: Last Vital Signs Temp 98.2 F 09/05/24 19:37 Pulse 81 09/05/24 23:53 Resp 20 09/05/24 23:53 BP 132/100 H 09/05/24 23:53 Pulse Ox 99 09/05/24 23:53 O2 Del Method Room Air 09/05/24 23:53 BMI result Body Mass Index 31.7 General: AOx3, appears uncomfortable Resp: CTA bilaterally CVS: S1, S2, RRR GI: +BS, tender lower abd and throughout, no distention Skin: Warm, dry Neuro: Cranial nerves II-XII grossly intact bilaterally. Motor grossly intact bilaterally Extremities: No LE edema Psych: Appropriate affect Const: General: No confusion Orientation/consciousness: No confusion Neuro: General: No confusion Results Labs 09/05/24 20:01 09/05/24 20:01 Labs: Laboratory Results - last 24 hr 09/05/24 09/05/24 09/05/24 20:01 20:05 21:13 MCV 73.8 L MCH 24.7 L MCHC 33.5 RDW 15.9 Plt Count 316 MPV 10.5 Immature Gran % (Auto) 0.4 Neut % (Auto) 62.5 Lymph % (Auto) 28.3 [place] % (Auto) 7.5 Eos % (Auto) 0.9 Baso % (Auto) 0.4 Lymph # (Auto) 4.8 [place] # (Auto) 1.3 H Eos # (Auto) 0.2 Baso # (Auto) 0.1 Abs Immat Gran (auto) 0.06 H Absolute Neuts (auto) 10.7 H Absolute Nucleated RBC 0.000 Nucleated RBC % (auto) 0.0 Anion Gap 14 Estim Creat Clear Calc 98.3 Estimated GFR > 60 Random Glucose 94 Lactic Acid 1.5 Calcium 9.3 Total Bilirubin 0.4 AST 21 ALT 22 Alkaline Phosphatase 57 Total Protein 7.6 Albumin 4.7 Lipase 16 Urine Color Yellow Urine Appearance Clear Urine pH 6.5 Ur Specific [place] 1.015 Urine Protein Trace Urine Glucose (UA) Negative Urine Ketones Negative Urine Blood Moderate (2+) H Urine Nitrite Negative Ur Leukocyte Esterase Small (1+) H Urine RBC >20 H Urine WBC 6-10 H Ur Squamous Epith Cells 0-2 Urine Bacteria None Seen Hyaline Casts 0-2 Urine Test NEGATIVE Assessment and Plan (1) Sepsis: Status: Acute (2) Diverticulitis: Status: Acute (3) UTI (urinary tract infection): Status: Acute (4) Candidiasis of vulva and vagina: Status: Acute (5) Hyperchloremic metabolic acidosis: Status: Acute (6) Class 1 obesity: Status: Acute Plan Pt is a 39 yo female with a pmhx significant for history of cannabis hyperemesis syndrome, GERD, recently diagnosed with diverticulitis on August 21 discharged home with augmentin, who returned to the ED today due to persistent low back pain, radiating to her lower abd in the suprapubic region and LLQ. sepsis secondary to diverticulitis and UTI - WBC 17.1, tachycardic and tachypneic, a febrile, lactic acid normal, blood cultures x2 pending. not severe sepsis - A/P CT with imporving sigmoid diverticultis without complicating features - UA with 6-10 WBC, small leuks, >20WBCs. culture pending - beta Hcg negative - BMP with hyperchloremic metabolic acidosis - given 1L IVF in ED, continue LR 100ml/hr - pain management with morphine and oxycodone - clear liqiud diet - started on zosyn in ED, continue - ID consult due to persistent diveritculitis - stool studies ordered, c diff and GI panel - monitor CBC and BMP vaginal candidiasis - swab pending - given 150mg PO diflucan in ED class 1 obesity - BMI 31.7 - weight loss encouraged med rec pending full code VTE prophy: lovenox Pt with sepsis secondary to diveritiulitis and UTI, reuqiring admission for at least 2 midnights stay for IV abx, ID consult and monitoring. Quality Stroke Does the patient have a stroke diagnosis?: No VTE Prior VTE?: No VTE Risk Level:: Medical - moderate - high VTE Device Contraindication: Treatment Not Indicated VTE Drug Contraindication: N/A - Med Ordered
[2024-09-06] MEDS: oxyCODONE HCl Immed Release 5 MG TABLET PO ×2 (02:34→10:37)
[2024-09-06 02:36] VITALS: BP 123/85; PULSE 67; RESP 18; O2SAT 100
--- NOTE | 2024-09-06 02:47 | PC.NURSE ---
pt medicated as per APR.
[2024-09-06 06:52] LABS: MANUAL DIFF FLAG NO
[2024-09-06 07:00] LABS: Hematocrit 35.9 % (37.0-47.0); Hemoglobin 11.4 g/dl (12.0-16.0); Imm Gran Abs Auto 0.04 X10*3/uL (0.00-0.03); Imm Gran Pct Auto 0.4 % (0.0-0.4); Lymphocytes Absolute Auto 3.6 X10*3/uL (1.2-4.9); Mean Corpuscular HGB Conc 31.8 g/dl (31.0-35.0); Mean Corpuscular Hemoglobin 24.1 pg (27.0-33.0); Mean Corpuscular Volume 75.7 fL (80.0-98.0); NRBC Abs Auto 0.000 X10*3/uL (0.0-0.012); NRBC Pct Auto 0.0 /100WBC (0.0-0.2); Platelet Count 269 X10*3/uL (160-400); Red Blood Count 4.74 X10*6/uL (4.20-5.50); White Blood Count 10.1 X10*3/uL (4.8-10.8)
[2024-09-06 07:11] LABS: Anion Gap 11 (12-20); Blood Urea Nitrogen 9 mg/dL (9-16); Calcium 8.4 mg/dL (8.4-10.2); Carbon Dioxide 23 mmol/L (22-29); Chloride 111 mmol/L (96-108); Creatinine Clr Calc Pharmacy 116.8; Estimated Glomerular Filt Rate > 60; Potassium 4.0 mmol/L (3.3-5.1); Sodium 141 mmol/L (135-145)
--- NOTE | 2024-09-06 07:14 | PM.EVENT ---
Event Note Date of Service: 09/06/24 Event Note: Pt seen/examined, labs med, imaging reviewed. She is feeling better and asking if she can go home later today Pt is a 39 yo female with a pmhx significant for history of cannabis hyperemesis syndrome, GERD, recently diagnosed with diverticulitis on August 21 discharged home with augmentin, who returned to the ED today due to persistent low back pain, radiating to her lower abd in the suprapubic region and LLQ and found to have UTI and CT showing improving diverticultisis sepsis d/t UTI, and resolving divertiticulitis, sepsis resolved, wbc is normal continue continue Zosyn follow culture Liqquid diet and advance GI consult ID consult stood studies, cdif if diarrhea if decides to go home would give Flagyl in addition to Augmentin or Ceftin Advance diet vaginal candidiasis d/t Abx use swab pending given 150mg PO diflucan in ED class 1 obesity BMI 31.7 weight loss encouraged full code VTE prophy: lovenox Pt with sepsis secondary to diveritiulitis and UTI, reuqiring admission for at least 2 midnights stay for IV abx, ID consult and monitoring. Time Spent With Patient Time: Total time managing care of this patient today ____ minutes.
--- NOTE | 2024-09-06 07:23 | PC.NURSE ---
this RN to room, patient stating she is in 10/10 pain, informed her next prn is not due until after 8am, patient continues to endorse pain
[2024-09-06 08:00] VITALS: BP 123/74; PULSE 70; RESP 16; TEMP 36.4; O2SAT 100
--- NOTE | 2024-09-06 08:10 | PC.NURSE ---
patient medicated per the MAR, resting quietly in room w/ call licea within reach. continues to endorse pain/itchiness in vagina/rectum. provided with ice chips per request, awaiting bed assignment call licea within reach
--- NOTE | 2024-09-06 08:52 | PHA.MEDREC ---
Addendum entered by Emily Colón RPh 09/06/24 08:58: MED REC REVIEWED BY [facility] Original Note: Pharmacy Consult ? Medication Reconciliation Pharmacy has completed the medication reconciliation. Patient states she is not taking any medications. Patient says she is suppose to be taking Metoprolol, however did not know the dosing. Patient reported she has not took this medication in months and there is no claim history.
--- NOTE | 2024-09-06 09:27 | MHC.CM.PN ---
CM approached pt. to complete assessment, pt. refused to answer questions, stated that she does not need case management.
--- NOTE | 2024-09-06 11:05 | MHC.EDTECH ---
This Tech tried to do pts vitals pt became upset because Tech turned light on to complete vitals pt refused
--- NOTE | 2024-09-06 11:08 | PC.NURSE ---
Initial contact w/ pt, per tech, pt refusing to have vitals obtained and requesting discharge.
--- NOTE | 2024-09-06 11:30 | PM.DS ---
DS: Providers Provider Date of Service: 09/06/24 Date of admission: 09/06/24 00:02 Date of discharge: 09/06/24 Primary care physician: None Physician Consults: 09/06/24 00:10 Consult to Infectious Diseases Routine Consulting Provider: [facility] Reason for consultation: recurrent diverticulitis Has provider been notified: No DS: Diagnosis Discharge Diagnosis (1) Sepsis: Status: Acute (2) Diverticulitis: Status: Acute (3) UTI (urinary tract infection): Status: Acute (4) Candidiasis of vulva and vagina: Status: Acute (5) Hyperchloremic metabolic acidosis: Status: Acute (6) Class 1 obesity: Status: Acute DS: Summary Hospital Course Hospital Course: admission hpi Chief Complaint: abd pain Pt is a 39 yo female with a pmhx significant for history of cannabis hyperemesis syndrome, GERD, recently diagnosed with diverticulitis on August 21 discharged home with augmentin, who returned to the ED today due to persistent low back pain, radiating to her lower abd in the suprapubic region and LLQ. she reports that she completed the Augmentin and her sx have not improved. she denies nausea or vomting but does have frequent diarrhea, no blood in the stool. she also reports vaginal discharge, burning and itching, possible yeast infection as well as dysuria. she is unable to sit comfortably. no fever or chills. Hospital course Time Attestation Discharge Coordination Time (in mins): 35 Quality: Safe Use of Opioids Does Pt have an Active Cancer Diagnosis on the Problem List?: No Quality: Stroke Does the patient have a stroke diagnosis?: No Physical Exam Vital Signs: Vital Signs: Last Vital Signs Temp 97.6 F 09/06/24 08:00 Pulse 70 09/06/24 08:00 Resp 16 09/06/24 08:00 BP 123/74 09/06/24 08:00 Pulse Ox 100 09/06/24 08:00 O2 Del Method Room Air 09/06/24 08:00 BMI result Body Mass Index 31.7 General: AO X 3, no acute distress Resp: CTA bilateral CVS: S1,S2,RRR GI: +BS, NT, no distention Skin: No rash Neuro: motor grossly intact Psych: appropriate affect DS: Data Data Completed and Pending Labs on day of discharge: Laboratory Results - last 24 hr 09/05/24 09/05/24 09/05/24 20:01 20:05 21:13 WBC 17.1 H RBC 5.34 Hgb 13.2 Hct 39.4 MCV 73.8 L MCH 24.7 L MCHC 33.5 RDW 15.9 Plt Count 316 MPV 10.5 Immature Gran % (Auto) 0.4 Neut % (Auto) 62.5 Lymph % (Auto) 28.3 [place] % (Auto) 7.5 Eos % (Auto) 0.9 Baso % (Auto) 0.4 Lymph # (Auto) 4.8 [place] # (Auto) 1.3 H Eos # (Auto) 0.2 Baso # (Auto) 0.1 Abs Immat Gran (auto) 0.06 H Absolute Neuts (auto) 10.7 H Absolute Nucleated RBC 0.000 Nucleated RBC % (auto) 0.0 Sodium 140 Potassium 3.7 Chloride 109 H Carbon Dioxide 21 L Anion Gap 14 BUN 14 Creatinine 0.76 Estim Creat Clear Calc 98.3 Estimated GFR > 60 Random Glucose 94 Lactic Acid 1.5 Calcium 9.3 Total Bilirubin 0.4 AST 21 ALT 22 Alkaline Phosphatase 57 Total Protein 7.6 Albumin 4.7 Lipase 16 Urine Color Yellow Urine Appearance Clear Urine pH 6.5 Ur Specific [place] 1.015 Urine Protein Trace Urine Glucose (UA) Negative Urine Ketones Negative Urine Blood Moderate (2+) H Urine Nitrite Negative Ur Leukocyte Esterase Small (1+) H Urine RBC >20 H Urine WBC 6-10 H Ur Squamous Epith Cells 0-2 Urine Bacteria None Seen Hyaline Casts 0-2 Urine Test NEGATIVE 09/06/24 06:27 WBC 10.1 RBC 4.74 Hgb 11.4 L Hct 35.9 L MCV 75.7 L MCH 24.1 L MCHC 31.8 RDW 15.7 Plt Count 269 MPV 11.4 Immature Gran % (Auto) 0.4 Neut % (Auto) 53.0 Lymph % (Auto) 36.0 [place] % (Auto) 8.3 Eos % (Auto) 1.7 Baso % (Auto) 0.6 Lymph # (Auto) 3.6 [place] # (Auto) 0.8 Eos # (Auto) 0.2 Baso # (Auto) 0.1 Abs Immat Gran (auto) 0.04 H Absolute Neuts (auto) 5.4 Absolute Nucleated RBC 0.000 Nucleated RBC % (auto) 0.0 Sodium 141 Potassium 4.0 Chloride 111 H Carbon Dioxide 23 Anion Gap 11 L BUN 9 Creatinine 0.64 Estim Creat Clear Calc 116.8 Estimated GFR > 60 Random Glucose 91 Lactic Acid Calcium 8.4 D Total Bilirubin AST ALT Alkaline Phosphatase Total Protein Albumin Lipase Urine Color Urine Appearance Urine pH Ur Specific [place] Urine Protein Urine Glucose (UA) Urine Ketones Urine Blood Urine Nitrite Ur Leukocyte Esterase Urine RBC Urine WBC Ur Squamous Epith Cells Urine Bacteria Hyaline Casts Urine Test Discharge Plan Discharge Anticipated Discharge Date/Time: 09/06/24 11:28 Patient Disposition: Home, Self-Care Discharge Diagnosis: UTI, Resolving diverticulitis Referrals: Physician,None [Primary Care Provider, Medical] - 1 Week Discharge Medications: Continued No Known Home Meds Diet: Advance to usual diet Activity on Discharge: As tolerated Stand Alone Forms: Patient Portal Discharge page Print Language: Kiswahili Care Plan Goals: recovery from UTI, Diverticulitis, yeast infection Health Concerns: Same as above Plan of Treatment: Take Cefuroxime and Falgyl as recommended and follow up with your Doctor in a week, call for appointment Assessment: see above
[2024-09-06 12:14] VITALS: BP 119/64; PULSE 60; RESP 18; O2SAT 99
[2024-09-06 14:11] VITALS: BP 119/64; PULSE 60; RESP 18; TEMP 36.1; O2SAT 99
[2024-09-06 14:17] VITALS: BP 125/80; PULSE 70; RESP 16; TEMP 36.8; O2SAT 100
--- NOTE | 2024-09-06 15:54 | PC.NURSE ---
Pt had medications sent to [facility] pharmacy, however medications got changed, [facility] was going to switch orders and bring up. after an extended waiting time this RN called [facility] pharmacy, scripts had been sent to [facility], pt notified and will go to [facility] to pick scripts up at this time
== END 2024-09-06 16:01 | disposition home or self-care (01) | DRG 720 ==
LOC: HO.ED 23:58 → HO.EDOVER 09-06 00:44 → HO.S3 09-06 11:45 → HO.EDOVER 09-06 12:33
PROVIDERS: Nurse Practitioner Family; Admitting Provider Physician Assistant; Emergency Provider Emergency Medicine; Visit Provider Internal Medicine
DX: A41.9 Sepsis, unspecified organism (principal); E87.20 Acidosis, unspecified; B37.31 Acute candidiasis of vulva and vagina; N39.0 Urinary tract infection, site not specified; K57.32 Diverticulitis of large intestine without perforation or abscess without bleeding; T36.0X5A Adverse effect of penicillins, initial encounter; T36.1X5A Adverse effect of cephalosporins and other beta-lactam antibiotics, initial encounter; E66.811 Obesity, class 1; Z71.3 Dietary counseling and surveillance; Z68.31 Body mass index [BMI] 31.0-31.9, adult
CPT/HCPCS: 36415; 74177; 80048; 80053; 81001; 81025; 83605; 83690; 85025; 87040; 87086; 93005; 99285; J2270; J2405; J2543; J7120; Q9967

== ENCOUNTER → 2024-09-05 20:39 | Outpatient (BNV) | payer OTHER, SELFPAY | PROVIDERS: Admitting Provider Physician Assistant; Emergency Provider Emergency Medicine; Visit Provider Internal Medicine Cardiovascular Disease | DX: R00.0 Tachycardia, unspecified (principal) | CPT/HCPCS: 93010 ==

== ENCOUNTER → 2024-09-05 22:14 | Outpatient (BNV) | payer OTHER, SELFPAY | PROVIDERS: Emergency Provider Emergency Medicine; Visit Provider Radiology Diagnostic Radiology | DX: K57.32 Diverticulitis of large intestine without perforation or abscess without bleeding (principal) | CPT/HCPCS: 74177 ==

== ENCOUNTER → 2024-09-06 00:02 | Outpatient (BNV) | payer OTHER, SELFPAY | PROVIDERS: Admitting Provider Physician Assistant; Emergency Provider Emergency Medicine; Visit Provider Internal Medicine | DX: A41.9 Sepsis, unspecified organism (principal); K57.92 Diverticulitis of intestine, part unspecified, without perforation or abscess without bleeding; N39.0 Urinary tract infection, site not specified; B37.31 Acute candidiasis of vulva and vagina; E87.29 Other acidosis; E66.811 Obesity, class 1 | CPT/HCPCS: 99499 ==

== ENCOUNTER 2024-11-13 17:07 | Emergency (ER) | payer OTHER, SELFPAY ==
--- NOTE | ~2024-11-13 | CT_ITS ---
CLINICAL HISTORY: right headache CT head without contrast Comparison: None provided Findings: No intra-axial mass, midline shift, hydrocephalus, or acute hemorrhage. No significant atrophy-like change or white matter disease. The visualized paranasal sinuses and mastoid air cells are normal. The orbits are within normal limits. There is no acute fracture. IMPRESSION: 1. No acute intracranial findings. This document has been electronically signed by: Ilia Mendez MD on 11/13/2024 20:34:01
[2024-11-13 17:36] VITALS: BP 145/77; PULSE 79; RESP 16; TEMP 36.8; O2SAT 100; BMI 24.2
--- NOTE | 2024-11-13 17:40 | ED_ITS ---
HPI - General Adult General Chief complaint: Headache Stated complaint: Migraine Time Seen by Provider: 11/13/24 20:11 Related Data Previous Rx's ?Medication ?Instructions ?Recorded amoxicillin 875 mg-potassium 1 tab PO BID #7 tabs 08/10 clavulanate 125 mg tablet fluconazole 150 mg tablet 150 mg PO DAILY 1 dose #1 ta b 09/06/24 oxycodone 5 mg tablet 5 mg PO Q6H PRN pain (scale score 09/06/24 7-10) #12 tabs lorazepam 1 mg tablet (Ativan) 1 mg PO BID PRN anxiety #7 tabs 11/13/24 prochlorperazine maleate 5 mg 5 mg PO TID PRN nausea a nd 11/13/24 tablet (Compazine) vomiting #10 tabs Allergies Allergy/AdvReac Type Severity Reaction Status Date / Time hydromorphone (Dilaudid) Allergy Unknown hives Verified 11/13/24 17:38 metoclopramide (From Reglan) Allergy Unknown Verified 11/13/24 17:38 ibuprofen (From MOTRIN) AdvReac Mild STOMACH Verified 11/13/24 17:38 UPSET PMFSH Past Medical History Attestation statement: The following information was validated with the patient. Medical History Diverticulitis Cannabis-induced disorder Shortness of breath Sinus tachycardia Cyclical vomiting Anxiety Ureteric calculus Family History Family History Father Heart disease Other Hypokalemia Social History Social History Household Members: Spouse and Children Housing: House Do you presently have visiting nurse or other home services: No Alcohol intake: never Patient Tobacco Use Status: Never used Tobacco Smoked in Last 30 Days: No Use of substances other than those prescribed or required for medical reasons: No Substance Use Type: Marijuana Advance Directives: No Advance Directives Information Provided: Yes service: No Physical Exam ED Vital Signs: Vital Signs - 24 hr 11/13/24 17:36 11/13/24 19:35 11/13/24 22:32 Temperature 98.2 F 98 F 97.5 F Pulse Rate 79 76 73 Respiratory Rate 16 18 18 Blood Pressure 145/77 H 143/78 H 126/65 Pulse Oximetry 100 99 98 Oxygen Delivery Method Room Air Room Air Room Air 11/13/24 22:40 Temperature 97.5 F Pulse Rate 73 Respiratory Rate 18 Blood Pressure 126/65 Pulse Oximetry 98 Oxygen Delivery Method BMI result Body Mass Index 24.2 Course Course Course Narrative: RME: 39 yold female presents to the ED For right sided headache with eye pain with no relief with execedrin. Patient states history of headache migraine in the past. Patient denies any recent trauma nausea vomiting. Patient states some photophobia. Physical exam negative for any rash on the face crepitus hematoma or deformity. Labs imaging ordered Medications Administered Discontinued Medications Generic Name Dose Route Start Last Admin Trade Name Freq PRN Reason Stop Dose Admin Diazepam 10 mg 11/13/24 20:21 11/13/24 21:03 Diazepam 10 Mg/2 Ml Cartridge IVPUSH 11/13/24 20:22 10 mg STAT STA Administration Sodium Chloride 1,000 mls @ 999 mls/hr 11/13/24 20:20 11/13/24 22:10 Ns IVCONT 11/13/24 21:20 Infused .Q1H1M ONE Infusion Acetaminophen 1,000 mg in 100 mls @ 400 mls/hr 11/13/24 20:20 11/13/24 21:18 Ofirmev IV 11/13/24 20:34 Infused ONCE ONE Infusion Prochlorperazine Edisylate 10 mg 11/13/24 20:20 11/13/24 21:03 Prochlorperazine Edisylate 10 Mg/2 Ml Vial IVPUSH 11/13/24 20:21 10 mg ONCE ONE Administration Medical Decision Making Lab Data 11/13/24 19:47 11/13/24 19:47 Labs: Lab Results 11/13/24 Range/Units 19:47 WBC 12.0 H (4.8-10.8) X10*3/uL RBC 4.73 (4.20-5.50) X10*6/uL Hgb 11.8 L (12.0-16.0) g/dl Hct 36.4 L (37.0-47.0) % MCV 77.0 L (80.0-98.0) fL MCH 24.9 L (27.0-33.0) pg MCHC 32.4 (31.0-35.0) g/dl RDW 15.2 (11.0-16.0) % Plt Count 277 (160-400) X10*3/uL MPV 10.9 (9.4-12.3) fL Immature Gran % (Auto) 0.2 (0.0-0.4) % Neut % (Auto) 56.5 (45-73) % Lymph % (Auto) 33.1 (20-40) % [place] % (Auto) 7.7 (2-11) % Eos % (Auto) 1.9 (0-4) % Baso % (Auto) 0.6 (0-2) % Lymph # (Auto) 4.0 (1.2-4.9) X10*3/uL [place] # (Auto) 0.9 (0.1-1.2) X10*3/uL Eos # (Auto) 0.2 (0.0-0.4) X10*3/uL Baso # (Auto) 0.1 (0.0-0.2) X10*3/uL Abs Immat Gran (auto) 0.03 (0.00-0.03) X10*3/uL Absolute Neuts (auto) 6.8 (2.0-8.3) x10*3/uL Absolute Nucleated RBC 0.000 (0.0-0.012) X10*3/uL Nucleated RBC % (auto) 0.0 (0.0-0.2) /100WBC Sodium 143 (135-145) mmol/L Potassium 3.9 (3.3-5.1) mmol/L Chloride 108 (96-108) mmol/L Carbon Dioxide 29 (22-29) mmol/L Anion Gap 10 L (12-20) BUN 17 H (9-16) mg/dL Creatinine 0.76 (0.5-1.4) mg/dL Estim Creat Clear Calc 94.9 Estimated GFR > 60 Random Glucose 83 (60-115) mg/dL Calcium 9.1 D (8.4-10.2) mg/dL Total Bilirubin 0.3 (0.0-1.0) mg/dL AST 15 (5-31) U/L ALT 11 (0-31) U/L Alkaline Phosphatase 60 (39-117) U/L Total Protein 6.9 (6.5-8.0) g/dL Albumin 4.1 (3.5-5.0) g/dL Beta HCG, Quant < 2 mIU/mL Discharge Plan Discharge Clinical Impression: Headache Patient Disposition: Home, Self-Care Instructions: Acute Headache (ED) Additional Instructions: Please follow-up with your primary care physician tomorrow. If you have any worsening or new symptoms, please return to the emergency room or call 911 Prescriptions: New prochlorperazine maleate [Compazine] 5 mg tablet 5 mg PO TID PRN (Reason: nausea and vomiting) Qty: 10 0RF lorazepam [Ativan] 1 mg tablet 1 mg PO BID PRN (Reason: anxiety) Qty: 7 0RF No Action fluconazole 150 mg tablet 150 mg PO DAILY Qty: 1 0RF Rx Instructions: Take it tomorrow, 09/07/24 amoxicillin-pot clavulanate 875-125 mg tablet 1 tab PO BID Qty: 7 0RF oxycodone 5 mg tablet 5 mg PO Q6H PRN (Reason: pain (scale score 7-10)) Qty: 12 0RF Rx Instructions: Partial Fill upon patient request. Interventions: ED Discharge Assessment Last Done: 11/13/24 22:40 Discharge Date/Time: 11/13/24 22:40 Print Language: Cymro
[2024-11-13 19:35] VITALS: BP 143/78; PULSE 76; RESP 18; TEMP 36.6; O2SAT 99
--- OUTSIDE RECORDS SUMMARY | 2024-11-13 19:40 | XMS_ITS | Clinical Summary ---
Author Organization [facility] Address [address] [place] [address] Care Team Providers Care Manufacturing Executive Name Role Phone Ana Viveros PA-C Primary Care Provider [phone] Source Comments PLEASE NOTE, if this patient [...] noted on CT abdomen - done at [facility] 09/22/14 - impression multiple bilateral non obstructing renal calculi the largest up to 5 mm. No hydronephrosis Epigastric abdominal pain 08/21/2014 Overview (08/21/2014): EGD - Done at [facility] - 08/14/14 -Findings Normal esophagus , [...] Flu, Preservative Free 12/22/2019,01/30/2016 Hep B, Adult/Adol ([id number]/RECOMBIVAX-ADULT) 09/20/2001 Hep B,adult,adjuvanted (HEPLISAV) 06/15/2022 MMR (MMR [...] Pap + HPV 1987 Tobacco Screening 1987 Imm-HPV (3 - 3-dose series) 07/20/2013 04/27/2013, 0 07/19/2007 Imm-Pneumococcal (2 of 2 - PCV) 01/16/2015 4 Annual Wellness (Adult): Indicated (All Coverage) 02/20/2022 02/20/2021, 06/01/2014 Relationship Safety Screening/Counseling 02/20/2022 02/20/2021 Cervical Cancer Screening 09/07/2022 Pap Smear 09/07/2022 09/08/2019 ([place] by Outside Provider), 04/27/2014 (Managed by Outside Provider), 02/19/2014 (Managed by Outside Provider) Anxiety Screening 08/07/2023 08/06/2022 Alcohol and Drug Screen 02/09/2024 06/16/19 23, 02/20/2021, 04/22/2018, Additional history exists Depression Annual Screen 02/09/2024 08/06/2022, 02/08 [id number] ( season) 2024 023, 05/06/2022 Imm-Influenza (#1) 2024 12/22/2019, 1 , 01/30/2016, [...] HEPATITIS C ANTIBODY NON-REACT SERGEY NON-REACT SERGEY y prime [facility] SIGNAL TO CUT-OFF 0.14 <1.00 Locu Comment: HCV antibody was non-reactive. There is no laboratory evidence of HCV infection. In most cases, no further action is required. However, if recent HCV exposure is suspected, a test for HCV RNA (test code 36247) is suggested. For additional information please refer to http://education.[employer]/faq/AKR67d1 (This link is being provided for informational/ educational purposes only.) Blood Blood / Unknown 06/15/2022 2 :47 PM EDT 06/15/2022 2:47 PM EDT us Ana Viveros PA-C LAB - BLOOD DRAW Edited Resu lt - Final [facility] [address] [address], [facility] [address] [address] * HIV Ag & Ab with Reflex Western Blot (06/15/2022 2:47 PM EDT) HIV AG/AB, 4TH GEN NON-REAC TIVE NON-REAC TIVE Locu Comment: HIV-1 antigen and HIV-1/HIV-2 antibodies were [...] purpose. For additional information please refer to http://education.[employer]/faq/NFK198 (This link is being provided for informational/ educational purposes only.) The performance of this assay has not been clinically validated in patients less than 2 years old. Blood Blood / Unknown 06/15/2022 2 :47 PM EDT 06/15/2022 2:47 PM EDT Ana Viveros PA-C LAB - BLOOD DRAW Final Resul t [facility] [employer] [address] [address], y prime [address] [address] * (ABNORMAL) CMP (06/15/2022 2:47 PM EDT) Pathologist [facility] GLUCOSE 108(H) 65 - 99 mg/dL Locu Comment: Fasting reference interval For someone without known diabetes, a glucose value between 100 and 125 mg/dL is consistent with prediabetes and should be confirmed with a follow-up test. UREA NITROGEN (BUN) 9 7 - 25 mg/dL [facility] CREATININE (blood) 0.48(L) 0.50 - 0.97 mg/dL Locu EGFR 127 > OR = 60 mL/min/1. 73m2 Locu Comment: The eGFR is based on the CKD-EPI 202 equation. To calculate the new eGFR from a previous Creatinine or Cystatin C result, go to https://www.kidney.org/professionals/ kdoqi/gfr%5Fcalculator BUN/CREATININE RATIO 19 6 - 22 (calc) [facility] SODIUM 138 135 - 146 mmol/L [facility] POTASSIUM 3.9 3.5 - 5.3 mmol/L [facility] CHLORIDE 107 98 - 110 mmol/L [facility] CARBON DIOXIDE 22 20 - 32 mmol/L [facility] CALCIUM 9.2 8.6 - 10.2 mg/dL [facility] PROTEIN, TOTAL 6.5 6.1 - 8.1 g/dL [facility] ALBUMIN 4.2 3.6 - 5.1 g/dL [facility] GLOBULIN 2.3 1.9 - 3.7 g/dL (calc) [facility] ALBUMIN/GLOBULI N RATIO 1.8 1.0 - 2.5 (calc) [facility] BILIRUBIN, TOTAL 0.6 0.2 - 1.2 mg/dL [facility] ALKALINE PHOSPHATASE 54 31 - 125 U/L [facility] AST 10 10 - 30 U/L [facility] ALT 10 6 - 29 U/L [facility] Blood Blood / Unknown 06/15/2022 2 :47 PM EDT 06/15/2022 2:47 PM EDT Ana Viveros PA-C LAB - BLOOD DRAW Edited Resu lt - Final [facility] [address] [address], [facility] [address] [place] [address] from Last 3 Months or Most Recently Relevant to Health Maintenance Insurance [facility] [employer] Member Subscriber Plan / Payer (Ef fective 2023-Present) Name:Felecia Mcdonald Relation to Subscriber:Self Name:Felecia Mcdonald Payer ID:[id number] Group ID:Not on file Type:Medicaid Address: [facility] [address] [place] [address] Care Teams Manufacturing Executive Relationship Specialty Start Date End Date Ana Viveros PA-C [facility] [place] [address] PCP - General Internal Medicine 11/25/20
--- OUTSIDE RECORDS SUMMARY | 2024-11-13 19:40 | XMS_ITS | Clinical Summary ---
Author Organization [facility] Address [address] [place] [phone] Phone Care Team Providers Care Internal Medicine Physician Name Role Phone [facility], [facility] Primary Care Provider Pcp, Unknown Unavailable Unavailable Allergies Active Allergy Reactions Criticality Noted Date Comments Hydromorphone 10/24/2022 Ibuprofen Nausea and/or Vomiting 11/08/2023 Metoclopramide Hcl Hives 11/08/2023 Medications cyclobenzaprine (FLEXERIL) 10 MG tablet Take 1 tablet (10 mg total) by mouth 3 (three) times a day as needed. 30 tablet 4 Active Additional Information Patient not taking.Reported on 11/24/2023 albuterol 90 mcg/actuation inhaler Inhale 2 puffs into the lungs. 3 Active oxyCODONE 5 MG immediate release tablet Take 1 tablet (5 mg total) by mouth every 4 (four) hours as needed for pain (specific location in comments) (severe pain). Partial fill ok 4 tablet 5 Active Active Problems No known active problems Encounters Date Type Department Care Team Description 10/23/2024 7:42 PM EDT - 10/23/2024 8:53 PM EDT Emergency [facility] Emergency [address] [place] [address] Discharge Disposition: Home or Self Care 10/23/2024 Orders Only [facility] Emergency [address] [place] [address] Yun Melton PA-C 10/23/2024 Procedure [facility], Ct Scan - [facility] [address] [place] [address] 10/12/2024 1:23 PM EDT - 10/12/2024 11:59 PM EDT Hospital Encounter [facility] Laboratory [address] [place] [address] Alexei Musa PA Discharge Disposition: Home or Self Care 10/12/2024 Transcribe Orders [facility] Laboratory [address] [place] [address] Alexei Musa PA Gastroesophageal reflux disease, unspecified whether esophagitis present (Primary Dx); Tachycardia from Last 3 Months Immunizations Immunization Administration Dates Next Due Hepatitis B Adult 09/20/2001 MMR 09/21/2011 Tdap 10/04/2017,07/03/2011 Social History Tobacco Use Types Packs/Day Years Used Date Smoking Tobacco: Never Assessed Smokeless Tobacco: Never Tobacco Cessation:Counseling Given: Not Answered Alcohol Use Standard Drinks/Week Comments Never 0 (1 standard drink = 0.6 oz pur e alcohol) Education Answer Date Recorded Are you interested in more education? Not on lita e 11/08/2023 Are you concerned about learning? Not on file 11/08/2023 No 11/08/2023 No 11/08/2023 Food Answer Date Recorded Within the past 6 months we worried whether our food would run out before we got money to buy more. Never True 10/23/2024 Within the past 6 months the food we bought just didn't last and we didn't have enough money to get more. Never True Residential Stability Answer Date Recor ded What is your housing situation today? I have ricardo sing 10/23/2024 How many times have you move d in the past 12 months? Zero (I did not move) 10/23/2024 Paying for Meds Answer Date Recorded Do you have trouble paying for medicines? No 10/23/2024 Paying Utility Bills Answer Date Record ed Do you have trouble paying your heating or elect ricity bill? No 10/23/2024 Transportation Answer Date Recorded Has the lack of transportati on kept you from medical appointments or from getting medications? No 10/23/2024 Digital Access Answer Date Recorded No 10/23/2024 Yes 10/23/2024 Do you have reliable internet access at home? Ye s 10/23/2024 Do you have a device (e.g., phone, tablet, computer) with a working camera? Yes 10/23/2024 Intimate Partner Violence Answer Date R ecorded Are you denied basic needs s uch as food, clothing, or medical care? No 10/23/2024 In the past 12 months have y ou been in a relationship with a person who hurts, threatens, or tries to control you? No 10/23/2024 Are you denied basic needs s uch as food, clothing, or medical care? No 10/23/2024 In the past 12 months have y ou been in a relationship with a person who hurts, threatens, or tries to control you? No 10/23/2024 Comments Unknown Sex and Gender Information Value Date Recorded Sex Assigned at Female 11/09/2023 11:16 AM EDT Legal Sex Female 12:08 PM EDT Gender Identity Female 11/09/2023 11:16 AM EDT Sexual Orientation Not on file Last Filed Vital Signs Vital Sign Reading Time Taken Comments Blood Pressure 136/95 10/23/2024 8:52 PM EDT Pulse 71 10/23/2024 8:52 PM EDT Temperature 36.8 C (98.3 F) 10/23/2024 8:52 PM EDT Respiratory Rate 16 10/23/2024 8:52 PM EDT Oxygen Saturation 100% 10/23/2024 8:52 PM EDT Inhaled Oxygen Concentration - - Weight 79.4 kg (175 lb) 11/24/2023 8:26 AM EDT Height 167.6 cm (5' 6 ) 11/24/2023 8:26 AM EDT Body Mass Index 28.25 11/24/2023 8:26 AM EDT Plan of Treatment Upcoming Encounters Date Type Department Care Team (Late st Contact Info) Description 12/26/2024 11:15 AM EST Office Visit [facility] [address] [place] [phone] Unknown, Unknown, Amelia Trinidad, PALisaC [address] [place] [address] [id number] [email or web address] 01/16/2025 10:00 AM EST Office Visit [facility] [address] [place] [address] Unknown, Unknown, Burke Jaimes MD [address] [address] [email or web address] Health Maintenance Due Date Last Done Comments DEPRESSION SCREENING 1999 SMOKING Hx and SMOKELESS TOBACCO SCREENING 08/24/2000 HIV ONE-TIME SCREENING (18-6 5 YEARS) 08/24/2005 PAP SMEAR 08/24/2008 INFLUENZA VACCINE (#1) 2024 COVID-19 VACCINE (2024-2 6 season) 2024 SCREENING FOR DIABETES 10/24/2027 , 06/15/2022 Adult Td,Tdap Booster 12/19/2029 12/20/2019 , 10/04/2017, 07/03/2011 HEPATITIS C SCREENING Completed 06/15/2022 HEPATITIS A VACCINES Aged Out No long er eligible based on patient's age to complete this topic HIB VACCINES Aged Out No longer eligi ble based on patient's age to complete this topic MENINGOCOCCAL VACCINES (ACWY) Aged Out No longer eligible based on patient's age to complete this topic MENINGOCOCCAL VACCINES (B) Aged Out N o longer eligible based on patient's age to complete this topic PNEUMOCOCCAL VACCINES (0-49 years) Aged Out No longer eligible b ased on patient's age to complete this topic Medical Devices Not on file Procedures Procedure Name Priority Date/Time Associated Diagnosis Comments US PELVIS TRANSABDOMINAL PLUS TRANSVAGINAL WITH DOPPLER Routine 10/23/2024 6:52 PM EDT URINALYSIS W/REFLEX URINE CULTURE STAT 10/23/2024 5:[address] ABDOMEN/PELVIS WITH CONTRAST Routine 10/23/2024 4:31 PM EDT LIPASE STAT 10/23/2024 3:48 PM EDT LFTS (HEPATIC PANEL) STAT 10/23/2024 3:48 PM EDT HCG, SERUM QUALITATIVE STAT 3:48 PM EDT BASIC METABOLIC PANEL STAT 10/23/2024 3:48 PM EDT CBC AND DIFFERENTIAL STAT 10/23/2024 3:48 PM EDT H PYLORI UREA BREATH TEST Routine 10/12/2024 1:36 PM EDT Gastroesophageal reflux disease, unspecified whether esophagitis present Tachycardia CBC AND DIFFERENTIAL Routine 10/12/2024 1:36 PM EDT Gastroesophageal reflux disease, unspecified whether esophagitis present Tachycardia TSH WITH REFLEX Routine 10/12/2024 1:36 PM EDT Gastroesophageal reflux disease, unspecified whether esophagitis present Tachycardia FREE T4 Routine 10/12/2024 1:36 PM EDT Gastroesophageal reflux disease, unspecified whether esophagitis present Tachycardia LIPID PANEL Routine 10/12/2024 1:36 PM EDT Gastroesophageal reflux disease, unspecified whether esophagitis present Tachycardia COMPREHENSIVE METABOLIC PANEL Routine 10/12/2024 1:36 PM EDT Gastroesophageal reflux disease, unspecified whether esophagitis present Tachycardia from Last 3 Months Results * US PELVIS TRANSABDOMINAL PLUS TRANSVAGINAL WITH DOPPLER (10/23/2024 6:52 PM EDT) Anatomical Region Laterality Modality Pelvis, Uterus/Adnexa Ultrasound 10/23/2024 8:16 PM EDT Impressions 10/23/2024 8:25 PM EDT 1. Unremarkable pelvic ultrasound. No acute sonographic abnormality. Narrative 10/23/2024 8:25 PM EDT US PELVIS TRANSABDOMINAL AND TRANSVAGINAL WITH DOPPLER Referring clinician's provided indication for this examination in Epic: Pain TECHNIQUE: Pelvic Ultrasound Transabdominal performed for global imaging of the pelvis. Pelvic Ultrasound Transvaginal performed for detailed imaging of the endometrium and/or adnexa. Color and spectral Doppler examination performed. COMPARISON: FINDINGS: Uterus: Size: 8.1 x 4.2 x 5.3 cm. Myometrium: Normal. Endometrium: Normal. Thickness: 6 mm. Right adnexa: Ovary: Normal Adnexal Doppler: Color and spectral Doppler of the right ovary shows normal arterial and venous waveforms. Left adnexa: Ovary: Normal Adnexal Doppler: Color and spectral Doppler of the left ovary shows normal arterial and venous waveforms. Free fluid: No significant free fluid. Procedure Note James Mohan MBBS - 10/23/2024 US PELVIS TRANSABDOMINAL AND TRANSVAGINAL WITH DOPPLER Referring clinician's provided indication for this examination in [facility]:Pain TECHNIQUE: Pelvic Ultrasound Transabdominal performed for global imagingof the pelvis. Pelvic Ultrasound Transvaginal performed for detailedimaging of the endometrium and/or adnexa. Color and spectral Dopplerexamination performed. COMPARISON: FINDINGS: Uterus: Size: 8.1 x 4.2 x 5.3 cm. Myometrium: Normal. Endometrium: Normal. Thickness: 6 mm. Right adnexa: Ovary: Normal Adnexal Doppler: Color and spectral Doppler of the right ovary showsnormal arterial and venous waveforms. Left adnexa: Ovary: Normal Adnexal Doppler: Color and spectral Doppler of the left ovary shows normalarterial and venous waveforms. Free fluid: No significant free fluid. IMPRESSION: 1. Unremarkable pelvic ultrasound. No acute sonographic abnormality. Yun Melton PA-C IM US PELVIS Final Result * (ABNORMAL) Urinalysis w/reflex Urine Culture (10/23/2024 5:54 PM EDT) COLOR Yellow Yellow [facility] CLARITY Clear [facility] GLUCOSE Negative Negative [facility] BILI Negative Negative [facility] KETONES Negative Negative [facility] SPECIFIC GRAVITY 1.010 1.005 - 1.030 [facility] BLOOD Trace(A) Negative [facility] PH >9.0(H) 5.0 - 8.0 [facility] Protein-UA Negative Negative [facility] NITRITE Negative Negative [facility] Leukocyte esterase, ur Negative Negative [facility] Urine (Urine) 10/23/2024 5:5 4 PM EDT 10/23/2024 7:08 PM EDT Yun Melton PA-C URINE ORDERABLES Final Result [facility] [address] [place] [address] * CT ABDOMEN/PELVIS WITH CONTRAST (10/23/2024 4:31 PM EDT) Anatomical Region Laterality Modality Abdomen, Pelvis Computed Tomogra phy 10/23/2024 5:07 PM EDT Impressions 10/23/2024 5:18 PM EDT No acute abnormality in the abdomen or pelvis. Colonic diverticulosis without diverticulitis. Narrative 10/23/2024 5:[address] ABDOMEN/PELVIS WITH CONTRAST Referring clinician's provided indication for this examination in Epic: * Abdominal pain, acute, nonlocalized TECHNIQUE: Multidetector-row CT of the abdomen and pelvis was performed after administration of intravenous contrast using tailored dose modulation techniques. Images were reconstructed in the axial, coronal, and sagittal planes. COMPARISON: None available. FINDINGS: Lower Chest: No consolidation or pleural effusions. Liver: A few scattered subcentimeter size hypodensities that are too small to characterize, statistically benign. Biliary: Normal gallbladder. No biliary ductal dilatation. Spleen: No splenomegaly or focal lesions. Pancreas: Normal. No masses or ductal dilatation. Adrenal Glands: Normal. No nodules. Kidneys/Ureters: A subcentimeter size hypodensities in bilateral kidneys that are too small to characterize, statistically benign such as cysts. Shifting bilateral renal calculi measuring up to 6 mm. No suspicious or solid mass on either side. The ureters are nondilated. Bowel: Prior appendectomy. Colonic diverticulosis without diverticulitis. Normal small bowel. Peritoneum/Retroperitoneum: No masses, pneumoperitoneum, or fluid. Lymph Nodes: No lymphadenopathy. Pelvic Organs/Bladder: No mass. Partially distended urinary bladder. Vessels: No abdominal aortic aneurysm. Bones/Soft Tissues: No significant abnormality. Procedure Note James Mohan MBBS - 10/23/2024 CT ABDOMEN/PELVIS WITH CONTRAST Referring clinician's provided indication for this examination in Epic: *Abdominal pain, acute, nonlocalized TECHNIQUE: Multidetector-row CT of the abdomen and pelvis was performedafter administration of intravenous contrast using tailored dosemodulation techniques. Images were reconstructed in the axial, coronal,and sagittal planes. COMPARISON: None available. FINDINGS: Lower Chest: No consolidation or pleural effusions. Liver: A few scattered subcentimeter size hypodensities that are too smallto characterize, statistically benign. Biliary: Normal gallbladder. No biliary ductal dilatation. Spleen: No splenomegaly or focal lesions. Pancreas: Normal. No masses or ductal dilatation. Adrenal Glands: Normal. No nodules. Kidneys/Ureters: A subcentimeter size hypodensities in bilateral kidneysthat are too small to characterize, statistically benign such as cysts.Shifting bilateral renal calculi measuring up to 6 mm. No suspicious orsolid mass on either side. The ureters are nondilated. Bowel: Prior appendectomy. Colonic diverticulosis without diverticulitis.Normal small bowel. Peritoneum/Retroperitoneum: No masses, pneumoperitoneum, or fluid. Lymph Nodes: No lymphadenopathy. Pelvic Organs/Bladder: No mass. Partially distended urinary bladder. Vessels: No abdominal aortic aneurysm. Bones/Soft Tissues: No significant abnormality. IMPRESSION: No acute abnormality in the abdomen or pelvis. Colonic diverticulosis without diverticulitis. us Yun Melton PA-C IMG CT ABD/PELVI S Final Result * HCG, serum qualitative (10/23/2024 3:48 PM EDT) HCG, QUALITATIVE Negative Negative IU/L [facility] Blood 10/23/2024 3:48 PM EDT 10/23/2024 4:13 PM EDT Abdulaziz Brooke MD LAB BLOOD ORDERAB LES Final Result Performing Organization Address [facility] Co de Phone Number [address] [address] * LFTs (hepatic panel) (10/23/2024 3:48 PM EDT) Pathologist [facility] ALKALINE PHOSPHATASE 69 39 - 117 U/L [facility] TOTAL BILIRUBIN 0.3 0.0 - 1.2 mg/dL [facility] DIRECT BILIRUBIN 0.1 0.0 - 0.2 mg/dL [facility] Bilirubin (Indirect) NOT CALCULATED 0 - 1.5 mg/dL [facility] AST 13 0 - 37 U/L [facility] ALT 12 0 - 40 U/L [facility] TOTAL PROTEIN 7.1 6.5 - 8.0 g/dL [facility] ALBUMIN 4.3 3.9 - 4.8 g/dL [facility] GLOBULIN 2.8 1 - 4.8 g/dL [facility] A/G Ratio 1.54 1.00 - 4.80 RATIO [facility] Blood 10/23/2024 3:48 PM EDT 10/23/2024 4:13 PM EDT Abdulaziz Brooke MD LAB BLOOD ORDERAB LES Final Result Performing Organization Address City/[facility] Co de Phone Number [address] [address] * (ABNORMAL) CBC and differential (10/23/2024 3:48 PM EDT) Only the most recent of2 resultswithin the time period is included. WBC 12.60(H) 4.00 - 11.00 K/uL [facility] RBC 4.88 4.00 - 5.20 M/uL [facility] HGB 12.1 12.0 - 16.0 g/dL [facility] HCT 37.3 36.0 - 46.0 % [facility] PLT 277 150 - 450 K/uL [facility] MCV 76.4(L) 80.0 - 100.0 fL [facility] MCH 24.8(L) 27.0 - 31.0 pg [facility] MCHC 32.4 32.0 - 36.0 g/dL [facility] RDW 15.9(H) 11.5 - 14.5 % [facility] MPV 11.4 8.4 - 12.0 fL [facility] NRBC 0.00 0.00 /100 WBCs [facility] ABSOLUTE NRBC 0.00 0.00 K/uL [facility] DIFF METHOD Auto [facility] NEUTS 63.3 48.0 - 76.0 % [facility] LYMPHS 28.2 18.0 - 41.0 % [facility] MONOS 6.4 4.0 - 11.0 % [facility] EOS 1.1 0.0 - 5.0 % [facility] BASOS 0.4 0.0 - 1.5 % [facility] Granulocytes, immature (%) 0.6 0.0 - 0.9 % [facility] ABSOLUTE NEUTS 7.98(H) 1.92 - 7.60 K/uL [facility] ABSOLUTE LYMPHS 3.55 0.72 - 4.10 K/uL [facility] ABSOLUTE MONOS 0.81 0.16 - 1.10 K/uL [facility] ABSOLUTE EOS 0.14 0.00 - 0.50 K/uL [facility] ABSOLUTE BASOS 0.05 0.00 - 0.15 K/uL [facility] Granulocytes, immature 0.07 0.00 - 0.09 K/uL [facility] Blood 10/23/2024 3:48 PM EDT 10/23/2024 4:13 PM EDT us bAdulaziz Brooke MD LAB BLOOD ORDERAB LES Final Result [facility] [address] [place] [address] * Lipase (10/23/2024 3:48 PM EDT) LIPASE 21 16 - 63 U/L [facility] Blood 10/23/2024 3:48 PM EDT 10/23/2024 4:13 PM EDT Abdulaziz Brooke MD LAB BLOOD ORDERAB LES Final Result Performing Organization Address City/[facility]/ZIP Co de Phone Number [address] [address] * (ABNORMAL) Basic metabolic panel (10/23/2024 3:48 PM EDT) SODIUM 140 133 - 146 mmol/L [facility] CHLORIDE 105 96 - 108 mmol/L [facility] POTASSIUM 3.7 3.3 - 5.1 mmol/L [facility] CO2 22 21 - 35 mmol/L [facility] BUN 11 6 - 19 mg/dL [facility] CREATININE 0.70 0.5 - 1.5 mg/dL [facility] GLUCOSE 106(H) 70 - 99 mg/dL [facility] CALCIUM 9.1 8.4 - 10.3 mg/dL [facility] EGFR 114 >59 mL/min/1.7 3m2 [facility] Comment:Estimated glomerular filtration rate calculated using the CKD-EPI refit equation. ANION GAP 17 10 - 20 mmol/L [facility] Blood 10/23/2024 3:48 PM EDT 10/23/2024 4:13 PM EDT Abdulaziz Brooke MD LAB BLOOD ORDERAB LES Final Result [address] [address] * (ABNORMAL) H PYLORI UREA BREATH TEST (10/12/2024 1:36 PM EDT) H.PYLORI C UREA BRTH Positive( A) Negative [facility] Comment: (NOTE) Result indicates the presence of active Helicobacter pylori infection. Blood 10/12/2024 1:36 PM EDT 10/12/2024 2:07 PM EDT Alexei CARTER LAB BLOOD ORDERABLES Final Result [facility] [address] [place] [address] * (ABNORMAL) Comprehensive metabolic panel (10/12/2024 1:36 PM EDT) SODIUM 141 133 - 146 mmol/L [facility] POTASSIUM 3.6 3.3 - 5.1 mmol/L [facility] CHLORIDE 106 96 - 108 mmol/L [facility] CO2 23 21 - 35 mmol/L [facility] BUN 13 6 - 19 mg/dL [facility] CREATININE 0.60 0.5 - 1.5 mg/dL [facility] GLUCOSE 69(L) 70 - 99 mg/dL [facility] ALBUMIN 4.4 3.9 - 4.8 g/dL [facility] TOTAL PROTEIN 7.2 6.5 - 8.0 g/dL [facility] CALCIUM 9.0 8.4 - 10.3 mg/dL [facility] ALKALINE PHOSPHATASE 64 39 - 117 U/L [facility] TOTAL BILIRUBIN 0.4 0.0 - 1.2 mg/dL [facility] AST 13 0 - 37 U/L [facility] ALT 10 0 - 40 U/L [facility] GLOBULIN 2.8 1 - 4.8 g/dL [facility] EGFR 118 >59 mL/min/1.7 3m2 [facility] Comment:Estimated glomerular filtration rate calculated using the CKD-EPI refit equation. ANION GAP 16 10 - 20 mmol/L [facility] Blood 10/12/2024 1:36 PM EDT 10/12/2024 2:10 PM EDT Alexei CARTER LAB BLOOD ORDERABLES Final Result Performing Organization Address City/[facility]/ZIP Co de Phone Number [facility] [address] [place] [address] * TSH with reflex (10/12/2024 1:36 PM EDT) TSH 0.73 0.27 - 4.20 uIU/mL [facility] Blood 10/12/2024 1:36 PM EDT 10/12/2024 2:10 PM EDT Alexei CARTER LAB BLOOD ORDERABLES Final Result Performing Organization Address City/[facility]/ZIP Co de Phone Number [address] [address] * Free T4 (10/12/2024 1:36 PM EDT) FREE T4 1.1 0.9 - 1.7 ng/dL [facility] Blood 10/12/2024 1:36 PM EDT 10/12/2024 2:10 PM EDT Alexei CARTER LAB BLOOD ORDERABLES Final Result Performing Organization Address City/[facility] Co de Phone Number [address] [address] * Lipid panel (10/12/2024 1:36 PM EDT) HDL 40 mg/dL [facility] Comment: Interpretation <40 mg/dL: Low HDL cholesterol (major risk factor for CHD) Greater than or equal to 60 mg/dL: High HDL cholesterol ( negative risk factor for CHD) HDL - cholesterol is affected by a number of factors, e.g. smoking, excerise, hormones, sex and age. CHOLESTEROL 160 0 - 240 mg/dL [facility] TRIGLYCERIDES 113 30 - 160 mg/dL [facility] LDL 97 50 - 129 mg/dL [facility] Comment: LDL levels in terms of risk for coronary heart disease: <100 mg/dL: Optimal 100-129 mg/dL: Near or above optimal 130-159 mg/dL: Borderline high 160-189 mg/dL: High >190 mg/dL: Very High CARDIAC RISK RATIO 4.0 3.3 - 4.4 [facility] Blood 10/12/2024 1:36 PM EDT 10/12/2024 2:10 PM EDT Alexei CARTER LAB BLOOD ORDERABLES Final Result [address] [address] from Last 3 Months Insurance [facility] [employer]MS[employer] Care Teams Internal Medicine Physician Relationship Specialty Start Date End [facility] [address] [place] [id number] PCP - General 11/08/23 Pcp, Unknown 11/08/23 Additional Source Comments The information contained in this document represents components of the legal health record. It is not the complete legal health record.[facility]
--- OUTSIDE RECORDS SUMMARY | 2024-11-13 19:40 | XMS_ITS | Clinical Summary ---
Author Organization [employer] Address [address] [facility] [address] [place] [address] Care Team Providers Care Manager Qa Name Role Phone Unavailable Primary Care Provider Unavailabl e Encounters Date Type Department Care Team Description 09/07/2024 Telephone [facility] [address] [place], [place] [phone] Arron Maldonado MD from Last 3 Months Social History Tobacco Use Types Packs/Day Years Used Date Smoking Tobacco: Never Assessed Comments Unknown Sex and Gender Information Value Date Recorded Sex Assigned at Not on file Legal Sex Female 11:25 AM EDT Gender Identity Not on file Sexual Orientation Not on file Plan of Treatment Health Maintenance Due Date Last Done Comments Depression Screening 1987 HIV Screening 1987 SDOH Screening 1987 Disability Screening 1987 Alcohol/Substance Use Screening 1999 Tobacco Screening 1999 Family Planning (PISQ) 08/24/2002 HPV Vaccines (1 - 3-dose series) 08/24/2002 Hepatitis C Screening 08/24/2005 DTaP/Tdap/Td Vaccines (1 - Tdap) 08/24/2006 Hepatitis B Vaccines (1 of 3 - 19+ 3-dose series) 08/24/2006 Pap Smear 08/24/2008 Cervical Cancer Screening 08/24/2017 HPV/Cotest 08/24/2017 COVID-19 Vaccine (1 - 2023-2 5 season) 2024 Influenza Vaccine (#1) 2024 Zoster Vaccines (1 of 2) 08/24/2037 RSV Patients and Pa tients Aged 60 years or older (1 - 1-dose 75+ series) 08/24/2062 HIB Vaccines Aged Out No longer eligi [...] topic Meningococcal Vaccine Aged Out No kim yazmni eligible based on patient's age to complete this topic Pneumococcal Vaccine: Pediat rics (0 to 5 Years) and At-Risk Patients (6 to 49) Years Aged Out No longer eligible b ased on patient's age to complete this topic RSV under 20 months Aged Out No longe r eligible based on patient's age to complete this topic Rotavirus Vaccines Aged Out No longer eligible based on patient's age to complete this topic
--- OUTSIDE RECORDS SUMMARY | 2024-11-13 19:40 | XMS_ITS | Encounter Summary ---
Author Organization [facility] Address [address] [place] [address] Phone Care Team Providers Care Professor Of Theatre Name Role Phone [facility], Facility Primary Care Provider Pcp, Unknown Unavailable Unavailable Encounter Details Date Type Department Care Team (Late st Contact Info) Description 10/23/2024 Orders Only [facility] [address] [place] [address] Yun Melton PA-C [address] [place] [address] Social History Tobacco Use Types Packs/Day Years Used Date Smoking Tobacco: Never Assessed Smokeless Tobacco: Never Alcohol Use Standard Drinks/Week Comments Never 0 [...] AM EDT Sexual Orientation Not on file documented as of this encounter Functional Status * Calculated C-SSRS Risk Score (Lifetime/Recent) Answer Date of Assessment Author No Risk Indicated 10/23/2024 3:25 PM EDT Esthela Colon RN * [place] Suicide Severity Rating Scale (Screener/Recent Self-Report) Question Answer Date of Assessment Author 1. Wish to be (Past 1 Month) No 025 3:25 PM EDT Esthela Colon, ISABEL 2. Non-Specific Active Suici corey Thoughts (Past 1 Month) No 10/23/2024 3:25 PM EDT Opal Colon RN 6. Suicidal Behavior (Lifetime) No 3:25 PM EDT Esthela Colon RN documented as of this encounter Plan of Treatment Upcoming Encounters Date Type Department Care Team (Late st Contact Info) Description 12/26/2024 11:15 AM EST Office Visit [facility] [address] [place] [address] Unknown, Unknown, Amelia Trinidad PA-C [address] [address] [email or web address] 01/16/2025 10:00 AM EST Office Visit [facility] [address] [place] [address] Unknown, Unknown, Burke Jaimes MD [address] [address] documented as of this encounter Visit Diagnoses Not on filedocumented in this encounter Care Teams Professor Of Theatre Relationship Specialty Start Date End Date [facility] [address] [place] [address] PCP - General 11/08/23 Pcp, Unknown 11/08/23 documented as of this encounter Additional Source Comments The information contained in this document represents components of the legal health record. It is not the complete legal health record.[facility]
--- OUTSIDE RECORDS SUMMARY | 2024-11-13 19:40 | XMS_ITS | Encounter Summary ---
Author Organization [facility] Address [address] [facility] [address] [place] [phone] Phone Care Team Providers Care Station Operator Name Role Phone [facility], Facility Primary Care Provider Pcp, Unknown Unavailable Unavailable Encounter Details Date Type Department Care Team (Late st Contact Info) Description 10/23/2024 Procedure Pass [facility], Ct Scan - [address] [address] Social History Tobacco Use Types Packs/Day Years [...] 3:25 PM EDT Esthela Colon RN * [place] Suicide Severity Rating Scale (Screener/Recent Self-Report) Question Answer Date of Assessment Author 1. Wish to be (Past 1 Month) No 025 3:25 PM EDT Esthela Colon RN 2. Non-Specific Active Suici corey Thoughts (Past 1 Month) No 10/23/2024 3:25 PM EDT Opal Colon RN 6. Suicidal Behavior (Lifetime) No 3:25 PM EDT Esthela Colon RN documented as of this encounter Plan of Treatment Upcoming Encounters Date Type Department Care Team (Late st Contact Info) Description 12/26/2024 11:15 AM EST Office Visit [facility] [address] [place] [address] Unknown, Unknown, Amelia Trinidad PA-C [address] [address] [email or web address] 01/16/2025 10:00 AM EST Office Visit [facility] [address] [place] [address] Unknown, Unknown, Burke Jaimes MD [address] [address] [email or web address] documented as of this encounter Visit Diagnoses Not on filedocumented in this encounter Care Teams Station Operator Relationship Specialty Start Date End Date [facility] [address] [place] [id number] PCP - General 11/08/23 Pcp, Unknown 11/08/23 documented as of this encounter Additional Source Comments The information contained in this document represents components of the legal health record. It is not the complete legal health record.[facility]
[2024-11-13 19:50] LABS: MANUAL DIFF FLAG NO
[2024-11-13 19:52] LABS: Hematocrit 36.4 % (37.0-47.0); Hemoglobin 11.8 g/dl (12.0-16.0); Imm Gran Abs Auto 0.03 X10*3/uL (0.00-0.03); Imm Gran Pct Auto 0.2 % (0.0-0.4); Lymphocytes Absolute Auto 4.0 X10*3/uL (1.2-4.9); Mean Corpuscular HGB Conc 32.4 g/dl (31.0-35.0); Mean Corpuscular Hemoglobin 24.9 pg (27.0-33.0); Mean Corpuscular Volume 77.0 fL (80.0-98.0); NRBC Abs Auto 0.000 X10*3/uL (0.0-0.012); NRBC Pct Auto 0.0 /100WBC (0.0-0.2); Platelet Count 277 X10*3/uL (160-400); Red Blood Count 4.73 X10*6/uL (4.20-5.50); White Blood Count 12.0 X10*3/uL (4.8-10.8)
[2024-11-13 20:08] LABS: Alanine Aminotransferase 11 U/L (0-31); Albumin Level 4.1 g/dL (3.5-5.0); Alkaline Phosphatase 60 U/L (39-117); Anion Gap 10 (12-20); Aspartate Amino Transferase 15 U/L (5-31); Blood Urea Nitrogen 17 mg/dL (9-16); Calcium 9.1 mg/dL (8.4-10.2); Carbon Dioxide 29 mmol/L (22-29); Chloride 108 mmol/L (96-108); Creatinine Clr Calc Pharmacy 94.9; Estimated Glomerular Filt Rate > 60; Potassium 3.9 mmol/L (3.3-5.1); Sodium 143 mmol/L (135-145); Total Protein 6.9 g/dL (6.5-8.0)
--- NOTE | 2024-11-13 20:22 | ED.HA ---
HPI - Headache General Chief Complaint: Headache Stated Complaint: Migraine Time Seen by Provider: 11/13/24 20:11 Source: patient Mode of arrival: ambulatory Limitations: no limitations History of Present Illness ED Provider: Dr. Ramonita Luis HPI Narrative: Patient comes to the emergency room complaining of right-sided headache for 3 days. Patient states that she has been taking Excedrin without any significant relief. Patient denies vision changes, complaining of photophobia. Patient denies vomiting. Related Data Previous Rx's ?Medication ?Instructions ?Recorded amoxicillin 875 mg-potassium 1 tab PO BID #7 tabs 09/06/24 clavulanate 125 mg tablet fluconazole 150 mg tablet 150 mg PO DAILY 1 dose #1 tab 09/06/24 oxycodone 5 mg tablet 5 mg PO Q6H PRN pain (scale score 09/06/24 7-10) #12 tabs lorazepam 1 mg tablet (Ativan) 1 mg PO BID PRN anxiety #7 tabs 11/13/24 prochlorperazine maleate 5 mg 5 mg PO TID PRN nausea and 11/13/24 tablet (Compazine) vomiting #10 tabs Allergies Allergy/AdvReac Type Severity Reaction Status Date / Time hydromorphone (Dilaudid) Allergy Unknown hives Verified 11/13/24 17:38 metoclopramide (From Reglan) Allergy Unknown Verified 11/13/24 17:38 ibuprofen (From MOTRIN) AdvReac Mild STOMACH Verified 11/13/24 17:38 UPSET Review of Systems Review of Systems: Constitutional : No Weight loss, No Fever, No Chills, No Night Sweats, No Fatigue, No Malaise ENT/Mouth : No Hearing loss, No Ear Pain, No Nasal Congestion, No Sinus Pain, No Hoarseness, No sore throat, No Rhinorrhea, No Swallowing Difficulty Eyes: No Eye Pain, No Swelling, No Redness, No Foreign Body, No Discharge, No Vision Changes Cardiovascular : No Chest Pain, No SOB, No Dyspnea on Exertion, No Orthopnea, No Edema, No Palpitations Respiratory : No Cough, No Sputum, No Wheezing, No Smoke Exposure, No Dyspnea Gastrointestinal : No Nausea, No Vomiting, No Diarrhea, No Constipation, No abdominal Pain, No Hematochezia, No Melena Genitourinary : no irregular bleeding, No Dysuria, No Urinary Frequency, No Hematuria, No Urinary Incontinence, No Urgency, No Flank Pain, No Urinary Flow Changes, No Hesitancy Musculoskeletal : No joint pain, No Myalgias, No Joint Swelling Skin : No Skin Lesions, No rash Neuro : No Weakness, No Numbness, No Paresthesias, No Loss of Consciousness, No Dizziness, complaining of headache Psych : No Anxiety/Panic, No Depression, No SI/HI/AH/VH, No Social Issues, Heme/Lymph: No Bruising, No Bleeding,No Lymphadenopathy Endocrine : No Polyuria, No Polydipsia, No Temperature Intolerance [facility] Past Medical History Medical History Diverticulitis Cannabis-induced disorder Shortness of breath Sinus tachycardia Cyclical vomiting Anxiety Ureteric calculus Family History Family History Father Heart disease Other Hypokalemia Social History Social History Household Members: Spouse and Children Housing: House Do you presently have visiting nurse or other home services: No Alcohol intake: never Patient Tobacco Use Status: Never used Tobacco Smoked in Last 30 Days: No Use of substances other than those prescribed or required for medical reasons: No Substance Use Type: Marijuana Advance Directives: No Advance Directives Information Provided: Yes service: No Physical Exam Exam: Exam: Appearance: Alert. Oriented X3. No acute distress. Eyes: Pupils equal, round and reactive to light. ENT: Pharynx normal. Neck: Normal inspection. Neck supple. No lymph nodes noted. No crepitus CVS: Normal heart rate and rhythm. Pulses normal. Normal S1 and S2 Respiratory: No respiratory distress. Breath sounds normal. No Wheezing. No rales Abdomen: Soft and nontender. No rigidity. No distention. Skin: Skin warm and dry. Normal skin color. Normal skin turgor. Extremities: No lower extremity edema. No Lacerations. No Rash Neuro: Oriented X 3. No motor deficit. No sensory deficit. Moving all extremities. No slurred speech. CN 2 through 12 grossly intact Psych: calm, cooperative, anxious Vital Signs: Vital Signs: Last Vital Signs Temp 98 F 11/13/24 19:35 Pulse 76 11/13/24 19:35 Resp 18 11/13/24 19:35 BP 143/78 H 11/13/24 19:35 Pulse Ox 99 11/13/24 19:35 O2 Del Method Room Air 11/13/24 19:35 BMI result Body Mass Index 24.2 Course Course Course Narrative: RME: 39 yold female presents to the ED For right sided headache with eye pain with no relief with execedrin. Patient states history of headache migraine in the past. Patient denies any recent trauma nausea vomiting. Patient states some photophobia. Physical exam negative for any rash on the face crepitus hematoma or deformity. Labs imaging ordered Medications Administered Discontinued Medications Generic Name Dose Route Start Last Admin Trade Name Freq PRN Reason Stop Dose Admin Diazepam 10 mg 11/13/24 20:21 11/13/24 21:03 Diazepam 10 Mg/2 Ml Cartridge IVPUSH 11/13/24 20:22 10 mg STAT STA Administration Sodium Chloride 1,000 mls @ 999 mls/hr 11/13/24 20:20 11/13/24 21:03 Ns IVCONT 11/13/24 21:20 999 mls/hr .Q1H1M ONE Administration Acetaminophen 1,000 mg in 100 mls @ 400 mls/hr 11/13/24 20:20 11/13/24 21:03 Ofirmev IV 11/13/24 20:34 400 mls/hr ONCE ONE Administration Prochlorperazine Edisylate 10 mg 11/13/24 20:20 11/13/24 21:03 Prochlorperazine Edisylate 10 Mg/2 Ml Vial IVPUSH 11/13/24 20:21 10 mg ONCE ONE Administration Medical Decision Making Medical Decision Making [facility] Narrative: Patient receiving IV fluids, IV ofirmev, Compazine, diazepam. According to the patient she is allergic to Reglan, NSAIDs, Dilaudid My interpretation of labs: Patient's white blood cell count 12 which is chronic for the patient, normal mobility in patient's chemistry, normal LFTs, hCG negative My interpretation of head CT: No acute abnormality. Radiology report pending Patient states that for 3 days she has been having right-sided facial pain/headache. Patient states that her was recently diagnosed with shingles. Patient does not have any rash Patient states that the medication that was given to her really helps her with her symptoms. Patient no longer having a headache. Differential Diagnosis Differential Diagnoses: The differential diagnosis associated with the presentation includes (Tension headache, migraine headache) Admission/Observation Consideration of admission/observation: Escalation of care including admission/observation considered (Given patient's initial set of complaints and presentation, observation was considered) Lab Data MDM Lab Attestation statement: I reviewed the patient's lab results. 11/13/24 19:47 11/13/24 19:47 Labs: Lab Results 11/13/24 Range/Units 19:47 WBC 12.0 H (4.8-10.8) X10*3/uL RBC 4.73 (4.20-5.50) X10*6/uL Hgb 11.8 L (12.0-16.0) g/dl Hct 36.4 L (37.0-47.0) % MCV 77.0 L (80.0-98.0) fL MCH 24.9 L (27.0-33.0) pg MCHC 32.4 (31.0-35.0) g/dl RDW 15.2 (11.0-16.0) % Plt Count 277 (160-400) X10*3/uL MPV 10.9 (9.4-12.3) fL Immature Gran % (Auto) 0.2 (0.0-0.4) % Neut % (Auto) 56.5 (45-73) % Lymph % (Auto) 33.1 (20-40) % [place] % (Auto) 7.7 (2-11) % Eos % (Auto) 1.9 (0-4) % Baso % (Auto) 0.6 (0-2) % Lymph # (Auto) 4.0 (1.2-4.9) X10*3/uL [place] # (Auto) 0.9 (0.1-1.2) X10*3/uL Eos # (Auto) 0.2 (0.0-0.4) X10*3/uL Baso # (Auto) 0.1 (0.0-0.2) X10*3/uL Abs Immat Gran (auto) 0.03 (0.00-0.03) X10*3/uL Absolute Neuts (auto) 6.8 (2.0-8.3) x10*3/uL Absolute Nucleated RBC 0.000 (0.0-0.012) X10*3/uL Nucleated RBC % (auto) 0.0 (0.0-0.2) /100WBC Sodium 143 (135-145) mmol/L Potassium 3.9 (3.3-5.1) mmol/L Chloride 108 (96-108) mmol/L Carbon Dioxide 29 (22-29) mmol/L Anion Gap 10 L (12-20) BUN 17 H (9-16) mg/dL Creatinine 0.76 (0.5-1.4) mg/dL Estim Creat Clear Calc 94.9 Estimated GFR > 60 Random Glucose 83 (60-115) mg/dL Calcium 9.1 D (8.4-10.2) mg/dL Total Bilirubin 0.3 (0.0-1.0) mg/dL AST 15 (5-31) U/L ALT 11 (0-31) U/L Alkaline Phosphatase 60 (39-117) U/L Total Protein 6.9 (6.5-8.0) g/dL Albumin 4.1 (3.5-5.0) g/dL Beta HCG, Quant < 2 mIU/mL Independent Interpretation I performed an independent interpretation of an: CT Scan Radiology Impression Discussion of test interpretation with radiology: I have reviewed the radiologist's reading. Radiologist Impression: No intra-axial mass, midline shift, hydrocephalus, or acute hemorrhage. No significant atrophy-like change or white matter disease. The visualized paranasal sinuses and mastoid air cells are normal. The orbits are within normal limits. There is no acute fracture. IMPRESSION: 1. No acute intracranial findings Critical Care Time Critical Care Time Critical Care Time: Yes Total Critical Care Time: 35 Attestation: I have personally provided critical care time. Time includes review of lab data, radiology results, discussion with consultants, and monitoring for potential decompensation. Intervention performed as documented. Discharge Plan Discharge Clinical Impression: Headache Patient Disposition: Home, Self-Care Instructions: Acute Headache (ED) Additional Instructions: Please follow-up with your primary care physician tomorrow. If you have any worsening or new symptoms, please return to the emergency room or call 911 Prescriptions: New prochlorperazine maleate [Compazine] 5 mg tablet 5 mg PO TID PRN (Reason: nausea and vomiting) Qty: 10 0RF lorazepam [Ativan] 1 mg tablet 1 mg PO BID PRN (Reason: anxiety) Qty: 7 0RF No Action fluconazole 150 mg tablet 150 mg PO DAILY Qty: 1 0RF Rx Instructions: Take it tomorrow, 09/07/24 amoxicillin-pot clavulanate 875-125 mg tablet 1 tab PO BID Qty: 7 0RF oxycodone 5 mg tablet 5 mg PO Q6H PRN (Reason: pain (scale score 7-10)) Qty: 12 0RF Rx Instructions: Partial Fill upon patient request. Print Language: Norwegian
[2024-11-13] MEDS: diazePAM 10 MG/2 ML CARTRIDGE IVPUSH (21:03)
[2024-11-13 22:32] VITALS: BP 126/65; PULSE 73; RESP 18; TEMP 36.4; O2SAT 98
[2024-11-13 22:40] VITALS: BP 126/65; PULSE 73; RESP 18; TEMP 36.4; O2SAT 98
== END 2024-11-13 22:40 | disposition home or self-care (01) ==
PROVIDERS: Physician Assistant; Emergency Provider Emergency Medicine
DX: R51.9 Headache, unspecified (principal); H53.149 Visual discomfort, unspecified
CPT/HCPCS: 36415; 70450; 80053; 84702; 85025; 96361; 96374; 96375; 99285; J0131; J0737; J3360

== ENCOUNTER → 2024-11-13 17:39 | Outpatient (BNV) | payer OTHER, SELFPAY | PROVIDERS: Emergency Provider Emergency Medicine; Visit Provider Radiology Diagnostic Radiology | DX: R51.9 Headache, unspecified (principal) | CPT/HCPCS: 70450 ==

== ENCOUNTER 2024-11-20 08:52 | Emergency (ER) | payer MEDICAID, SELFPAY ==
--- NOTE | ~2024-11-20 | CT_ITS ---
CLINICAL HISTORY: hx of diverticulitis, L sided abd pain CT abdomen and pelvis with contrast Comparison: CT/SR - CT ABDOMEN PELVIS W IV CON - 09/05/24 22:[address] - CT ABDOMEN PELVIS W IV CON - 09/05/24 22:[address]/REG/SR - CT ABDOMEN PELVIS W IV CON - 01/17/23 11:53 EST Findings: The lung bases are clear. Subcentimeter hypodensities throughout the liver too small to accurately characterize by CT criteria. Numerous bilateral nephrolithiasis. Mild prominence of the right renal pelvis and right Proximal ureter, nonspecific. No definite radiopaque obstructing urinary calculus. Renal ultrasound could be obtained for further evaluation if indicated. No bowel obstruction, pneumoperitoneum, or pneumatosis. Moderate volume of stool throughout the colon. Multiple calcifications within the pelvis likely representing phleboliths unchanged from previous exam. Appendectomy. Diverticulosis without evidence of diverticulitis. No acute fracture. IMPRESSION: 1. Numerous bilateral nephrolithiasis. Mild prominence of the right renal pelvis and right Proximal ureter, nonspecific. No definite radiopaque obstructing urinary calculus. Renal ultrasound could be obtained for further evaluation if indicated. 2. Moderate volume of stool throughout the colon. 3. Diverticulosis without evidence of diverticulitis. This document has been electronically signed by: Ernesto Lopez DO on 11/20/2024 13:12:06
--- NOTE | ~2024-11-20 | US_ITS ---
CLINICAL HISTORY: flank pain, nephrolithiasis on CT recommending US Retroperitoneal ultrasound Comparison: CT/SR - ABDOMEN ABD_PELVIS_IV_CONTRAST (ADULT) - 11/20/24 12:[address]/SR - CT ABDOMEN PELVIS W IV CON - 09/05/24 22:35 EDT US - US ED FAST SCAN - 08/21/24 21:09 EDT US/TX/SR - US KIDNEY LEFT - 02/27/23 19:26 EST Findings: The kidneys are normal in echotexture bilaterally. No hydronephrosis. There is bilateral nephrolithiasis which measures up to 8 mm on the right and 10 mm on the left. The right kidney is normal in size, measuring 11.9cm in length. The left kidney is normal in size, measuring 11.5cm in length. Impression: No acute findings. Bilateral nephrolithiasis. This document has been electronically signed by: Sobia Bustamante MD on 11/20/2024 14:05:23
[2024-11-20 09:02] VITALS: BP 137/83; PULSE 105; RESP 18; TEMP 36.3; O2SAT 98; BMI 28.3
[2024-11-20 09:29] LABS: MANUAL DIFF FLAG NO
[2024-11-20 09:32] LABS: Hematocrit 41.0 % (37.0-47.0); Hemoglobin 12.8 g/dl (12.0-16.0); Imm Gran Abs Auto 0.03 X10*3/uL (0.00-0.03); Imm Gran Pct Auto 0.3 % (0.0-0.4); Lymphocytes Absolute Auto 2.8 X10*3/uL (1.2-4.9); Mean Corpuscular HGB Conc 31.2 g/dl (31.0-35.0); Mean Corpuscular Hemoglobin 24.5 pg (27.0-33.0); Mean Corpuscular Volume 78.4 fL (80.0-98.0); NRBC Abs Auto 0.000 X10*3/uL (0.0-0.012); NRBC Pct Auto 0.0 /100WBC (0.0-0.2); Platelet Count 282 X10*3/uL (160-400); Red Blood Count 5.23 X10*6/uL (4.20-5.50); White Blood Count 9.9 X10*3/uL (4.8-10.8)
[2024-11-20 09:46] LABS: Alanine Aminotransferase 15 U/L (0-31); Albumin Level 4.2 g/dL (3.5-5.0); Alkaline Phosphatase 70 U/L (39-117); Anion Gap 12 (12-20); Aspartate Amino Transferase 20 U/L (5-31); Blood Urea Nitrogen 13 mg/dL (9-16); Calcium 9.0 mg/dL (8.4-10.2); Carbon Dioxide 25 mmol/L (22-29); Chloride 109 mmol/L (96-108); Creatinine Clr Calc Pharmacy 103.6; Estimated Glomerular Filt Rate > 60; Potassium 4.1 mmol/L (3.3-5.1); Sodium 142 mmol/L (135-145); Total Protein 6.9 g/dL (6.5-8.0)
[2024-11-20 09:49] LABS: Appearance Urine Clear; Glucose Urine UA Negative (Negative); PH 6.0 (5.0-9.0); Specific Gravity - Urine 1.020 (1.005-1.025); UMIC TRIGGER UACC YES
--- NOTE | 2024-11-20 09:49 | ED.ABDPAIN ---
HPI - Abdominal Pain General Chief Complaint: Abdominal Pain Stated Complaint: L sided pain/cramping Time Seen by Provider: 11/20/24 09:26 Source: patient, RN notes reviewed and old records reviewed Mode of arrival: ambulatory Limitations: no limitations History of Present Illness ED Provider: KISHAN Mullen HPI narrative: 39-year-old female with medical history of diverticulitis, uterine fibroids, presents to the ED due to 2 days of left-sided flank pain that is radiating into the left side of the abdomen. Patient states pain has been intermittent, and is a sharp stabbing pain lasting for about approximately 5-10 minutes at a time associated with mild nausea. Patient states she was in the department 08/21/24 and diagnosed with diverticulits, finished course of antibitotics but this pain feels the same. Patient states she has been constipated and had a very soft small volume bowel movement this morning but reports increased flatulence and abdominal pressure. She reports LMP was 11/09/24 and has history of uterine fibroids and has ablation procedure scheduled for 11/27. Additionally, patient states she has noticed blood when wiping after going to the bathroom but is unsure if the blood is originating vaginally or rectally. Related Data Previous Rx's ?Medication ?Instructions ?Recorded amoxicillin 875 mg-potassium 1 tab PO BID #7 tabs 09/06/24 clavulanate 125 mg tablet fluconazole 150 mg tablet 150 mg PO DAILY 1 dose #1 tab 09/06/24 oxycodone 5 mg tablet 5 mg PO Q6H PRN pain (scale score 09/06/24 7-10) #12 tabs lorazepam 1 mg tablet (Ativan) 1 mg PO BID PRN anxiety #7 tabs 11/13/24 prochlorperazine maleate 5 mg 5 mg PO TID PRN nausea and 11/13/24 tablet (Compazine) vomiting #10 tabs cefuroxime axetil 500 mg tablet 500 mg PO BID #10 tabs 11/20/24 magnesium citrate (OneLAX 300 ml PO DAILY #296 mL 11/20/24 Magnesium Citrate oral solution) simethicone 125 mg capsule (Gas 125 mg PO DAILY PRN abdominal 11/20/24 Relief (simethicone)) distention #10 caps Allergies Allergy/AdvReac Type Severity Reaction Status Date / Time hydromorphone (Dilaudid) Allergy Unknown hives Verified 11/20/24 09:05 metoclopramide (From Reglan) Allergy Unknown Verified 11/20/24 09:05 ibuprofen (From MOTRIN) AdvReac Mild STOMACH Verified 11/20/24 09:05 UPSET Review of Systems Review of Systems CONST: Negative for fever, body aches and chills. HENT: Negative for neck pain/stiffness, headache, congestion, sore throat, swelling. EYES: Negative for discharge/pain or vision changes. RESP: Negative for cough/hemoptysis and shortness of breath. CV: Negative chest pain, difficulty breathing, palpitations. ABD: Negative nausea, vomiting. POS L sided abdominal pain : Negative increase frequency, dysuria, blood in urine or stool. POS bleeding, unsure if vaginally or rectally MUSC: Negative for muscle aches, edema. SKIN: Negative rash, lesions/sores. NEURO: Negative headache, dizziness, weakness. Yes all other systems are reviewed and are negative PMFSH Past Medical History Attestation statement: The following information was validated with the patient. Source: old records reviewed and nursing notes reviewed Medical History Diverticulitis Cannabis-induced disorder Shortness of breath Sinus tachycardia Cyclical vomiting Anxiety Ureteric calculus Family History Family History Father Heart disease Other Hypokalemia Social History Social History Household Members: Spouse and Children Housing: House Do you presently have visiting nurse or other home services: No Alcohol intake: never Patient Tobacco Use Status: Never used Tobacco Smoked in Last 30 Days: No Use of substances other than those prescribed or required for medical reasons: No Substance Use Type: Marijuana Advance Directives: No Advance Directives Information Provided: No Do you have a plan to hurt others: No Plan Patient : No service: No Physical Exam ED Vital Signs: Vital Signs - 24 hr 11/20/24 09:02 Temperature 97.3 F Pulse Rate 105 H Respiratory Rate 18 Blood Pressure 137/83 Pulse Oximetry 98 Oxygen Delivery Method Room Air BMI result Body Mass Index 28.3 GENERAL APPEARANCE: ?AxOx4, uncomfortable appearing, shifting from side to side in stretcher due to abd pain, no acute distress. HEENT: ?NC, AT. MMM. EOMI, clear conjunctiva, oropharynx clear. NECK: ?Supple without lymphadenopathy.? No stiffness or restricted ROM. HEART:? Normal rate and regular rhythm, normal S1/S2, no m/r/g LUNGS:? CTAB, moving air well. No crackles or wheezes are heard. ABDOMEN: ?Soft, nondistended, no rigidity, no guarding, negative Day's sign, no rebound tenderness, TTP of left lower quadrant, no overlying skin changes : External genitalia without lesions, vaginal canal without lesions or vesicles, no copious vaginal discharge noted, very small amount of brown sanguineous fluid from cervical os, bimanual exam reveals soft mobile uterus, negative chandelier sign, no adnexal tenderness BACK: No CVAT, no obvious deformity. TTP of L sided lumbar paraspinal muscles and SI joint, no midline spinal tenderness, no bony step offs palpated, no overlying skin changes EXTREMITIES: ?Without cyanosis, clubbing or edema. NEUROLOGICAL: ?Grossly nonfocal. Alert and oriented, moving all 4 extremities. Observed to ambulate with normal gait. Skin: ?Warm and dry without any rash. Medical Decision Making Medical Decision Making MDM Narrative: 39-year-old female with medical history of diverticulitis, uterine fibroids, presents to the ED due to 2 days of L lumbar back pain and intermittent stabbing LLQ abdominal pain. Patient has history of diverticulitis and reports this pain is similar. Patient has noticed blood when wiping and is unsure if this is coming from the vagina, or rectum. LMP was 10/2. Last BM this morning but soft consistency and very small volume. VS on initial observation-BP 137/83, pulse rate of 105, respiratory rate of 18, afebrile with oral temp of 97.3?, O2 saturation 98% on room air. On physical exam abdomen is soft, nondistended, no rigidity, no guarding, negative Day's sign, no rebound tenderness, TTP of left lower quadrant, no overlying skin changes. External genitalia without lesions, vaginal canal without lesions or vesicles, no copious vaginal discharge noted, very small amount of brown sanguineous fluid from cervical os, bimanual exam reveals soft mobile uterus, negative chandelier sign, no adnexal tenderness Labs without leukocytosis/leukopenia, H&H stable, no electrolyte abnormalities, beta hCG quant <2. Occult blood stool negative. UA reveals 1+ urine protein, 2+ urine blood, trace leukocyte esterase, 11-20 urine RBC, 6-10 squamous epithelial cells, 1+ urine bacteria. CT abdomen and pelvis reveals numerous bilateral nephrolithiasis, with mild prominence of the right renal pelvis and right proximal ureter, no obstructing urinary calculus, moderate volume of stool throughout the colon, diverticulosis without evidence of diverticulitis. Renal ultrasound reveals bilateral nephrolithiasis I offered patient to do STI swabs for gonorrhea, chlamydia, and vaginitis panel. Patient states she has been with same sexual partner for many years and has no concerns for STI and refused swabs today. Patient afebrile, without leukocytosis. Patient with abdominal pain, may be due to nephrolithiasis that may have passed, or may be due to moderate stool burden seen on CT. She has history of uterine fibroids and ablation procedure scheduled for 11/27, has close follow up with [employer], this is most likely causing vaginal spotting/bleeding as she did not have significant pain during bimanual exam or with manipulation of the cervix. Patient will be discharged home with simethicone and magnesium citrate to facilitate bowel movement. I counseled patient to follow up with PCP to ensure resolution of abdominal pain. I have placed urology referral for her to follow up with regarding nephrolithiasis, there is no hydroureter or hydronephrosis so no indication for prednisone or flowmax at this time. Patient is in agreement with the plan. Differential Diagnosis Differential Diagnoses: The differential diagnosis associated with the presentation includes Gastritis Acute abdomen Diverticulitis UTI Electrolyte abnormality PID Uterine fibroid Admission/Observation Consideration of admission/observation: Escalation of care including admission/observation considered Lab Data MDM Lab Attestation statement: I reviewed the patient's lab results. 11/20/24 09:26 11/20/24 09:26 Labs: Lab Results 11/20/24 11/20/24 11/20/24 Range/Units 09:26 09:31 10:22 WBC 9.9 (4.8-10.8) X10*3/uL RBC 5.23 (4.20-5.50) X10*6/uL Hgb 12.8 (12.0-16.0) g/dl Hct 41.0 (37.0-47.0) % MCV 78.4 L (80.0-98.0) fL MCH 24.5 L (27.0-33.0) pg MCHC 31.2 (31.0-35.0) g/dl RDW 15.6 (11.0-16.0) % Plt Count 282 (160-400) X10*3/uL MPV 11.1 (9.4-12.3) fL Immature Gran % (Auto) 0.3 (0.0-0.4) % Neut % (Auto) 64.0 (45-73) % Lymph % (Auto) 28.2 (20-40) % Kay % (Auto) 5.7 (2-11) % Eos % (Auto) 1.3 (0-4) % Baso % (Auto) 0.5 (0-2) % Lymph # (Auto) 2.8 (1.2-4.9) X10*3/uL Kay # (Auto) 0.6 (0.1-1.2) X10*3/uL Eos # (Auto) 0.1 (0.0-0.4) X10*3/uL Baso # (Auto) 0.1 (0.0-0.2) X10*3/uL Abs Immat Gran (auto) 0.03 (0.00-0.03) X10*3/uL Absolute Neuts (auto) 6.3 (2.0-8.3) x10*3/uL Absolute Nucleated RBC 0.000 (0.0-0.012) X10*3/uL Nucleated RBC % (auto) 0.0 (0.0-0.2) /100WBC Sodium 142 (135-145) mmol/L Potassium 4.1 (3.3-5.1) mmol/L Chloride 109 H (96-108) mmol/L Carbon Dioxide 25 (22-29) mmol/L Anion Gap 12 (12-20) BUN 13 (9-16) mg/dL Creatinine 0.79 (0.5-1.4) mg/dL Estim Creat Clear Calc 103.6 Estimated GFR > 60 Random Glucose 103 (60-115) mg/dL Calcium 9.0 (8.4-10.2) mg/dL Total Bilirubin 0.5 (0.0-1.0) mg/dL AST 20 (5-31) U/L ALT 15 (0-31) U/L Alkaline Phosphatase 70 (39-117) U/L Total Protein 6.9 (6.5-8.0) g/dL Albumin 4.2 (3.5-5.0) g/dL Beta HCG, Quant < 2 mIU/mL Urine Color Yellow Urine Appearance Clear Urine pH 6.0 (5.0-9.0) Ur Specific [place] 1.020 (1.005-1.025) Urine Protein 30 (1+) H (Neg-Trace) mg/dL Urine Glucose (UA) Negative (Negative) mg/dL Urine Ketones Negative (Negative) mg/dL Urine Blood Moderate (2+) H (Negative) Urine Nitrite Negative (Negative) Ur Leukocyte Esterase Trace H (Negative) Urine RBC 11-20 H (0-2) /HPF Urine WBC 0-5 (0-5) /HPF Ur Squamous Epith Cells 6-10 (0-2) /HPF Urine Bacteria 1+ (None Seen) Hyaline Casts 0-2 (0-2) /LPF Stool Occult Blood NEGATIVE (NEGATIVE) Independent Interpretation I performed an independent interpretation of an: CT Scan Interpretation: I personally interpreted the CT abdomen and pelvis which reveals numerous bilateral nephrolithiasis, diverticulosis, I agree with the radiologist's interpretation I personally interpreted the ultrasound bilateral kidneys which reveals numerous bilateral nephrolithiasis, I agree with the radiologist's interpretation Radiology Impression Discussion of test interpretation with radiology: I have reviewed the radiologist's reading. Radiologist Impression: CT abdomen and pelvis Findings: The lung bases are clear. Subcentimeter hypodensities throughout the liver too small to accurately characterize by CT criteria. Numerous bilateral nephrolithiasis. Mild prominence of the right renal pelvis and right Proximal ureter, nonspecific. No definite radiopaque obstructing urinary calculus. Renal ultrasound could be obtained for further evaluation if indicated. No bowel obstruction, pneumoperitoneum, or pneumatosis. Moderate volume of stool throughout the colon. Multiple calcifications within the pelvis likely representing phleboliths unchanged from previous exam. Appendectomy. Diverticulosis without evidence of diverticulitis. No acute fracture. IMPRESSION: 1. Numerous bilateral nephrolithiasis. Mild prominence of the right renal pelvis and right Proximal ureter, nonspecific. No definite radiopaque obstructing urinary calculus. Renal ultrasound could be obtained for further evaluation if indicated. 2. Moderate volume of stool throughout the colon. 3. Diverticulosis without evidence of diverticulitis. This document has been electronically signed by: Ernesto Lopez DO on 11/20/2024 13:12:06 Dictated By: Ernesto Lopez DO Signed By: <Electronically signed by Ernesto Lopez DO in [place]> 11/20/24 1313 Ultrasound bilateral kidneys Findings: The kidneys are normal in echotexture bilaterally. No hydronephrosis. There is bilateral nephrolithiasis which measures up to 8 mm on the right and 10 mm on the left. The right kidney is normal in size, measuring 11.9cm in length. The left kidney is normal in size, measuring 11.5cm in length. Impression: No acute findings. Bilateral nephrolithiasis. This document has been electronically signed by: Sobia Bustamante MD on 11/20/2024 14:05:23 Dictated By: Sobia Alejo MD Signed By: <Electronically signed by Sobia Alejo MD in OV> 11/20/24 1406 External Record Review External record reviewed: Inpatient record, Office record and Outpatient record Prescription Management I considered prescription management with: Antibiotic (I considered antibiotics however patient without significant pain on bimanual exam with cervical manipulation, no evidence of diverticulitis on CT exam, no indication for antibiotics at this time.) Chronic Conditions Patient?s care impacted by: Other (Diverticulitis, uterine fibroids) Medications Administered Discontinued Medications Generic Name Dose Route Start Last Admin Trade Name Freq PRN Reason Stop Dose Admin Lactated Ringer's 1,000 mls @ 999 mls/hr 11/20/24 10:19 11/20/24 14:17 Lr IV 11/20/24 11:19 Infused .Q1H1M ONE Infusion Iohexol 85 ml 11/20/24 12:25 11/20/24 12:25 Iohexol 350 Mg/Ml 100 Ml Infus..Btl IV 11/20/24 12:26 85 ml ONCE ONE Administration Morphine Sulfate 4 mg 11/20/24 10:19 11/20/24 10:44 Morphine Sulfate 4 Mg/Ml Cartridge IVPUSH 11/20/24 10:20 4 mg ONCE ONE Administration Protocol Morphine Sulfate 4 mg 11/20/24 12:30 11/20/24 12:46 Morphine Sulfate 4 Mg/Ml Cartridge IVPUSH 11/20/24 12:31 4 mg ONCE ONE Administration Protocol Discharge Plan Discharge Clinical Impression: Nephrolithiasis, UTI (urinary tract infection) Patient Disposition: Home, Self-Care Additional Instructions: You were evaluated in the ED today due to left-sided abdominal pain, and vaginal bleeding. Your lab work was reassuring as there was no significant elevation in your white blood cell count indicative of infection. Your urine today was positive for infection, you will be prescribed a 5 day course of cefuroxime for coverage. The CT abdomen and pelvis revealed numerous kidney stones in both kidneys, ultrasound today revealed the same. I have placed referral to [facility] for further evaluation and management. You are being prescribed a 5 day course of cefuroxime for UTI, magnesium citrate to help facilitate bowel movement at home. Drink half of the bottle, if no bowel movement in 6 hours, repeat. Simethicone for increased gas production and abdominal discomfort. Please follow up with your primary care doctor to ensure resolution of abdominal pain. [facility] will be contacting you within 2 business?days after being discharged from the Emergency?Department.? During this?phone call, they will inform you when your follow up appointment will be scheduled. If you have not received a call from [facility] after 2 business?days, please call the?office at [phone]. Please return to the emergency department if you experience fevers over 100.4?, worsening abdominal pain, inability to have a bowel movement, inability to pass gas from the bottom, or any new/worsening/concerning symptoms. Prescriptions: New cefuroxime axetil 500 mg tablet 500 mg PO BID Qty: 10 0RF simethicone [Gas Relief (simethicone)] 125 mg capsule 125 mg PO DAILY PRN (Reason: abdominal distention) Qty: 10 0RF magnesium citrate [OneLAX Magnesium Citrate] Solution 300 ml PO DAILY Qty: 296 0RF No Action fluconazole 150 mg tablet 150 mg PO DAILY Qty: 1 0RF Rx Instructions: Take it tomorrow, 09/07/24 amoxicillin-pot clavulanate 875-125 mg tablet 1 tab PO BID Qty: 7 0RF oxycodone 5 mg tablet 5 mg PO Q6H PRN (Reason: pain (scale score 7-10)) Qty: 12 0RF Rx Instructions: Partial Fill upon patient request. prochlorperazine maleate [Compazine] 5 mg tablet 5 mg PO TID PRN (Reason: nausea and vomiting) Qty: 10 0RF lorazepam [Ativan] 1 mg tablet 1 mg PO BID PRN (Reason: anxiety) Qty: 7 0RF Referrals: [facility] [Provider Group, Urology] Print Language: Burkinan
--- OUTSIDE RECORDS SUMMARY | 2024-11-20 09:51 | XMS_ITS | Encounter Summary ---
Author Organization [facility] Address [address] [facility] [address] [place] [address] Phone Care Team Providers Care Field Secretary Name Role Phone [facility], Facility Primary Care Provider Pcp, Unknown Unavailable Unavailable Encounter Details Date Type Department Care Team (Late st Contact Info) Description 10/23/2024 Procedure Pass [facility], Ct Scan - [address] [address] Social History Tobacco Use Types Packs/Day Years [...] 3:25 PM EDT Esthela Colon RN * [place] Suicide Severity Rating Scale (Screener/Recent Self-Report) Question [...] Visit [facility] [address] [place] [address] Unknown, Unknown, Amelia Trinidad PA-C [address] [address] [email or web address] 01/16/2025 10:00 AM EST Office Visit [facility] [address] [place] [address] Unknown, Unknown, Burke Jaimes MD [address] [address] [email or web address] documented as of this encounter Visit Diagnoses Not on filedocumented in this encounter Care Teams Field Secretary Relationship Specialty Start Date End Date [facility] [address] [place] [id number] PCP - General 11/08/23 Pcp, Unknown 11/08/23 documented as of this encounter Additional Source Comments The information contained in this document represents components of the legal health record. It is not the complete legal health record.[facility]
--- OUTSIDE RECORDS SUMMARY | 2024-11-20 09:51 | XMS_ITS | Encounter Summary ---
Author Organization [employer] [facility] Address [address] [place] [address] Phone Care Team Providers Care Director Toxicology Name Role Phone [facility], Facility Primary Care Provider Pcp, Unknown Unavailable Unavailable Encounter Details Date Type Department Care Team (Late st Contact Info) Description 10/23/2024 Orders Only [facility] [address] [place] [address] Yun Melton PA-C [address] [place] [address] [email or web address] Social History Tobacco Use Types Packs/Day Years [...] 3:25 PM EDT Esthela Colon RN * [place] Suicide Severity Rating Scale (Screener/Recent Self-Report) Question [...] Description 12/26/2024 11:15 AM EST Office Visit [facility] [address] [place] [address] Unknown, Unknown, Amelia Trinidad PA-C [address] [address] [email or web address] 01/16/2025 10:00 AM EST Office Visit [facility] [address] [place] [address] Unknown, Unknown, Burke Jaimes MD [address] [address] documented as of this encounter Visit Diagnoses Not on filedocumented in this encounter Care Teams Director Toxicology Relationship Specialty Start Date End Date [facility] [address] [place] [address] PCP - General 11/08/23 Pcp, Unknown 11/08/23 documented as of this encounter Additional Source Comments The information contained in this document represents components of the legal health record. It is not the complete legal health record.[facility]
--- OUTSIDE RECORDS SUMMARY | 2024-11-20 09:51 | XMS_ITS | Clinical Summary ---
Author Organization [employer] Address [address] [facility] [address] [place] [address] Care Team Providers Care Corporate Specialist Name Role Phone Unavailable Primary Care Provider Unavailabl e Encounters Date Type Department Care Team Description 09/07/2024 Telephone [facility] [address] [place], [place] [id number] Arron Maldonado MD from Last 3 Months [...]
--- OUTSIDE RECORDS SUMMARY | 2024-11-20 09:51 | XMS_ITS | Clinical Summary ---
Author Organization [facility] Address [address] [place] [address] Phone Care Team Providers Care Graphic Technician Name Role Phone [facility], [facility] Primary Care Provider Pcp, Unknown Unavailable [...] EDT Emergency [facility] Emergency [address] [place] [address] Discharge Disposition: Home or Self Care 10/23/2024 Orders Only [facility] Emergency [address] [place] [address] Yun Melton PA-C 10/23/2024 Procedure Pass [facility], Ct Scan - [facility] [address] [place] [address] 10/12/2024 1:23 PM EDT - 10/12/2024 11:59 PM EDT Hospital Encounter [facility] Laboratory [address] [place] [address] Alexei Musa PA Discharge Disposition: Home or Self Care 10/12/2024 Transcribe Orders [facility] Laboratory [address] [place] [address] Alexei Musa PA Gastroesophageal reflux disease, unspecified [...] Description 12/26/2024 11:15 AM EST Office Visit [facility] [address] [place] [phone] Unknown, Unknown, Amelia Trinidad, PALisaC [address] [place] [address] [phone] [email or web address] 01/16/2025 10:00 AM EST Office Visit [facility] [address] [place] [address] Unknown, Unknown, Burke Jaimes MD [address] [address] [email or web address] Health Maintenance Due Date [...] clinician's provided indication for this examination in [facility]:Pain TECHNIQUE: Pelvic Ultrasound Transabdominal performed for global [...] (10/23/2024 5:54 PM EDT) COLOR Yellow Yellow [facility] CLARITY Clear [facility] GLUCOSE Negative Negative [facility] BILI Negative Negative [facility] KETONES Negative Negative [facility] SPECIFIC GRAVITY 1.010 1.005 - 1.030 [facility] BLOOD Trace(A) Negative [facility] PH >9.0(H) 5.0 - 8.0 [facility] Protein-UA Negative Negative [facility] NITRITE Negative Negative [facility] Leukocyte esterase, ur Negative Negative [facility] Urine (Urine) 10/23/2024 5:5 4 PM EDT 10/23/2024 7:08 PM EDT Yun Melton PA-C URINE ORDERABLES Final Result [facility] [address] [place] [address] * CT ABDOMEN/PELVIS WITH CONTRAST (10/23/2024 4:31 [...] PM EDT) HCG, QUALITATIVE Negative Negative IU/L [facility] Blood 10/23/2024 3:48 PM EDT 10/23/2024 4:13 PM EDT Abdulaziz Brooke MD LAB BLOOD ORDERAB LES Final Result Performing Organization Address [facility] Co de Phone Number [address] [address] * LFTs (hepatic panel) (10/23/2024 3:48 PM EDT) Pathologist [facility] ALKALINE PHOSPHATASE 69 39 - 117 U/L [facility] TOTAL BILIRUBIN 0.3 0.0 - 1.2 mg/dL [facility] DIRECT BILIRUBIN 0.1 0.0 - 0.2 mg/dL [facility] Bilirubin (Indirect) NOT CALCULATED 0 - 1.5 mg/dL [facility] AST 13 0 - 37 U/L [facility] ALT 12 0 - 40 U/L [facility] TOTAL PROTEIN 7.1 6.5 - 8.0 g/dL [facility] ALBUMIN 4.3 3.9 - 4.8 g/dL [facility] GLOBULIN 2.8 1 - 4.8 g/dL [facility] A/G Ratio 1.54 1.00 - 4.80 RATIO [facility] Blood 10/23/2024 3:48 PM EDT 10/23/2024 4:13 PM EDT Abdulaziz Brooke MD LAB BLOOD ORDERAB LES Final Result Performing Organization Address City/[facility] Co de Phone Number [address] [address] * (ABNORMAL) CBC and differential (10/23/2024 3:48 PM EDT) Only the most recent of2 resultswithin the time period is included. WBC 12.60(H) 4.00 - 11.00 K/uL [facility] RBC 4.88 4.00 - 5.20 M/uL [facility] HGB 12.1 12.0 - 16.0 g/dL [facility] HCT 37.3 36.0 - 46.0 % [facility] PLT 277 150 - 450 K/uL [facility] MCV 76.4(L) 80.0 - 100.0 fL [facility] MCH 24.8(L) 27.0 - 31.0 pg [facility] MCHC 32.4 32.0 - 36.0 g/dL [facility] RDW 15.9(H) 11.5 - 14.5 % [facility] MPV 11.4 8.4 - 12.0 fL [facility] NRBC 0.00 0.00 /100 WBCs [facility] ABSOLUTE NRBC 0.00 0.00 K/uL [facility] DIFF METHOD Auto [facility] NEUTS 63.3 48.0 - 76.0 % [facility] LYMPHS 28.2 18.0 - 41.0 % [facility] MONOS 6.4 4.0 - 11.0 % [facility] EOS 1.1 0.0 - 5.0 % [facility] BASOS 0.4 0.0 - 1.5 % [facility] Granulocytes, immature (%) 0.6 0.0 - 0.9 % [facility] ABSOLUTE NEUTS 7.98(H) 1.92 - 7.60 K/uL [facility] ABSOLUTE LYMPHS 3.55 0.72 - 4.10 K/uL [facility] ABSOLUTE MONOS 0.81 0.16 - 1.10 K/uL [facility] ABSOLUTE EOS 0.14 0.00 - 0.50 K/uL [facility] ABSOLUTE BASOS 0.05 0.00 - 0.15 K/uL [facility] Granulocytes, immature 0.07 0.00 - 0.09 K/uL [facility] Blood 10/23/2024 3:48 PM EDT 10/23/2024 4:13 PM EDT us Abdulaziz Brooke MD LAB BLOOD ORDERAB LES Final Result [facility] [address] [place] [address] * Lipase (10/23/2024 3:48 PM EDT) LIPASE 21 16 - 63 U/L [facility] Blood 10/23/2024 3:48 PM EDT 10/23/2024 4:13 PM EDT Abdulaziz Brooke MD LAB BLOOD ORDERAB LES Final Result Performing Organization Address City/[facility]/ZIP Co de Phone Number [address] [address] * (ABNORMAL) Basic metabolic panel (10/23/2024 3:48 PM EDT) SODIUM 140 133 - 146 mmol/L [facility] CHLORIDE 105 96 - 108 mmol/L [facility] POTASSIUM 3.7 3.3 - 5.1 mmol/L [facility] CO2 22 21 - 35 mmol/L [facility] BUN 11 6 - 19 mg/dL [facility] CREATININE 0.70 0.5 - 1.5 mg/dL [facility] GLUCOSE 106(H) 70 - 99 mg/dL [facility] CALCIUM 9.1 8.4 - 10.3 mg/dL [facility] EGFR 114 >59 mL/min/1.7 3m2 [facility] Comment:Estimated glomerular filtration rate calculated using the CKD-EPI refit equation. ANION GAP 17 10 - 20 mmol/L [facility] Blood 10/23/2024 3:48 PM EDT 10/23/2024 4:13 PM EDT Abdulaziz Brooke MD LAB BLOOD ORDERAB LES Final Result [address] [address] * (ABNORMAL) H PYLORI UREA BREATH TEST (10/12/2024 1:36 PM EDT) H.PYLORI C UREA BRTH Positive( A) Negative [facility] Comment: (NOTE) Result indicates the presence of active Helicobacter pylori infection. Blood 10/12/2024 1:36 PM EDT 10/12/2024 2:07 PM EDT Alexei CARTER LAB BLOOD ORDERABLES Final Result [facility] LAB MED/PATH [address] [place] [address] * (ABNORMAL) Comprehensive metabolic panel (10/12/2024 1:36 PM EDT) SODIUM 141 133 - 146 mmol/L [facility] POTASSIUM 3.6 3.3 - 5.1 mmol/L [facility] CHLORIDE 106 96 - 108 mmol/L [facility] CO2 23 21 - 35 mmol/L [facility] BUN 13 6 - 19 mg/dL [facility] CREATININE 0.60 0.5 - 1.5 mg/dL [facility] GLUCOSE 69(L) 70 - 99 mg/dL [facility] ALBUMIN 4.4 3.9 - 4.8 g/dL [facility] TOTAL PROTEIN 7.2 6.5 - 8.0 g/dL [facility] CALCIUM 9.0 8.4 - 10.3 mg/dL [facility] ALKALINE PHOSPHATASE 64 39 - 117 U/L [facility] TOTAL BILIRUBIN 0.4 0.0 - 1.2 mg/dL [facility] AST 13 0 - 37 U/L [facility] ALT 10 0 - 40 U/L [facility] GLOBULIN 2.8 1 - 4.8 g/dL [facility] EGFR 118 >59 mL/min/1.7 3m2 [facility] Comment:Estimated glomerular filtration rate calculated using the CKD-EPI refit equation. ANION GAP 16 10 - 20 mmol/L [facility] Blood 10/12/2024 1:36 PM EDT 10/12/2024 2:10 PM EDT Alexei CARTER LAB BLOOD ORDERABLES Final Result Performing Organization Address City/[facility]/ZIP Co de Phone Number [facility] [address] [place] [address] * TSH with reflex (10/12/2024 1:36 PM EDT) TSH 0.73 0.27 - 4.20 uIU/mL [facility] Blood 10/12/2024 1:36 PM EDT 10/12/2024 2:10 PM EDT Alexei CARTER LAB BLOOD ORDERABLES Final Result Performing Organization Address City/[facility]/ZIP Co de Phone Number [address] [address] * Free T4 (10/12/2024 1:36 PM EDT) FREE T4 1.1 0.9 - 1.7 ng/dL [facility] Blood 10/12/2024 1:36 PM EDT 10/12/2024 2:10 PM EDT Alexei CARTER LAB BLOOD ORDERABLES Final Result Performing Organization Address City/[facility] Co de Phone Number [address] [address] * Lipid panel (10/12/2024 1:36 PM EDT) HDL 40 mg/dL [facility] Comment: Interpretation <40 mg/dL: Low HDL cholesterol (major risk factor for CHD) Greater than or equal to 60 mg/dL: High HDL cholesterol ( negative risk factor for CHD) HDL - cholesterol is affected by a number of factors, e.g. smoking, excerise, hormones, sex and age. CHOLESTEROL 160 0 - 240 mg/dL [facility] TRIGLYCERIDES 113 30 - 160 mg/dL [facility] LDL 97 50 - 129 mg/dL [facility] Comment: LDL levels in terms of risk for coronary heart disease: <100 mg/dL: Optimal 100-129 mg/dL: Near or above optimal 130-159 mg/dL: Borderline high 160-189 mg/dL: High >190 mg/dL: Very High CARDIAC RISK RATIO 4.0 3.3 - 4.4 C [facility] Blood 10/12/2024 1:36 PM EDT 10/12/2024 2:10 PM EDT Alexei CARTER LAB BLOOD ORDERABLES Final Result [address] [address] from Last 3 Months Insurance [facility] CCMSI Care Teams Graphic Technician Relationship Specialty Start Date End Date [facility] [address] [place] [id number] PCP - General 11/08/23 Pcp, Unknown 11/08/23 Additional Source Comments The information contained in this document represents components of the legal health record. It is not the complete legal health record.[facility]
--- OUTSIDE RECORDS SUMMARY | 2024-11-20 09:51 | XMS_ITS | Clinical Summary ---
Author Organization [facility] Address [address] [place] [address] Care Team Providers Care Bread Panner Name Role Phone Ana Viveros PA-C Primary [...] noted on CT abdomen - done at [facility] 09/22/14 - impression multiple bilateral non obstructing renal calculi the largest up to 5 mm. No hydronephrosis Epigastric abdominal pain 08/21/2014 Overview (08/21/2014): EGD - Done at [facility] - 08/14/14 -Findings Normal esophagus , stomach Mucosa, Normal Duodenum- awaiting stomach Biopsy Unspecified asthma(493.90) 03/06/2014 Overview (06/03/2014): per PMH as noted on previous medical records -- Normal spirometry 08/30/07 Right nephrolithiasis Without evidence of hydron ephrosis 03/06/2014 Overview (03/06/2014): UG gall Bladder 06/22/13 Hx of gastritis 03/06/2014 Overview (03/06/2014): Per hospital records [facility] ADHD (attention deficit hyperactivity disorder) 02/20/2014 Overview (02/20/2014): As per hospital record reviewed Marijuana use 02/20/2014 Overview (02/20/2014): As per hospital record reviewed Immunizations Immunization Administration Dates Next Due Flu, Preservative Free 12/22/2019,01/30/2016 Hep B, Adult/Adol (PZUNNHY-[id number]/RECOMBIVAX-ADULT) 09/20/2001 Hep B,adult,adjuvanted (HEPLISAV) 06/15/2022 MMR (MMR [...] exists Depression Annual Screen 02/09/2024 08/06/2022, 02/08 [id number] ( season) 2024 023, 05/06/2022 Imm-Influenza (#1) [...] HEPATITIS C ANTIBODY NON-REACT SERGEY NON-REACT SERGEY [facility] SIGNAL TO CUT-OFF 0.14 <1.00 [employer] Comment: HCV antibody was non-reactive. There is no laboratory evidence of HCV infection. In most cases, no further action is required. However, if recent HCV exposure is suspected, a test for HCV RNA (test code 78769) is suggested. For additional information please refer to http://education.Anchanto/faq/MXO35y2 (This link is being provided for informational/ educational purposes only.) Blood Blood / Unknown 06/15/2022 2 :47 PM EDT 06/15/2022 2:47 PM EDT us Ana Viveros PA-C LAB - BLOOD DRAW Edited Resu lt - Final [facility] [address] [address], [facility] [address] [address] * HIV Ag & Ab with Reflex Western Blot (06/15/2022 2:47 PM EDT) HIV AG/AB, 4TH GEN NON-REAC TIVE NON-REAC TIVE [employer] [employer] Comment: HIV-1 antigen and HIV-1/HIV-2 antibodies were [...] purpose. For additional information please refer to http://education.Anchanto/faq/KLR075 (This link is being provided for informational/ educational purposes only.) The performance of this assay has not been clinically validated in patients less than 2 years old. Blood Blood / Unknown 06/15/2022 2 :47 PM EDT 06/15/2022 2:47 PM EDT Ana Viveros PA-C LAB - BLOOD DRAW Final Resul t [email or web address] [address] [address], [facility] [address] [address] * (ABNORMAL) CMP (06/15/2022 2:47 PM EDT) Pathologist [facility] GLUCOSE 108(H) 65 - 99 mg/dL [employer] [employer] Comment: Fasting reference interval For someone without known diabetes, a glucose value between 100 and 125 mg/dL is consistent with prediabetes and should be confirmed with a follow-up test. UREA NITROGEN (BUN) 9 7 - 25 mg/dL [facility] CREATININE (blood) 0.48(L) 0.50 - 0.97 mg/dL [employer] EGFR 127 > OR = 60 mL/min/1. 73m2 [employer] [facility] Comment: The eGFR is based on the CKD-EPI 202 equation. To calculate the new eGFR from a previous Creatinine or Cystatin C result, go to https://www.kidney.org/professionals/ kdoqi/gfr%5Fcalculator BUN/CREATININE RATIO 19 6 - 22 (calc) [facility] SODIUM 138 135 - 146 mmol/L [facility] POTASSIUM 3.9 3.5 - 5.3 mmol/L [facility] CHLORIDE 107 98 - 110 mmol/L [facility] [place] DIOXIDE 22 20 - 32 mmol/L [facility] CALCIUM 9.2 8.6 - 10.2 mg/dL [facility] PROTEIN, TOTAL 6.5 6.1 - 8.1 g/dL [facility] ALBUMIN 4.2 3.6 - 5.1 g/dL [facility] GLOBULIN 2.3 1.9 - 3.7 g/dL (calc) [facility] ALBUMIN/GLOBULI N RATIO 1.8 1.0 - 2.5 (calc) [facility] BILIRUBIN, TOTAL 0.6 0.2 - 1.2 mg/dL [facility] ALKALINE PHOSPHATASE 54 31 - 125 U/L [facility] AST 10 10 - 30 U/L [facility] ALT 10 6 - 29 U/L [facility] Blood Blood / Unknown 06/15/2022 2 :47 PM EDT 06/15/2022 2:47 PM EDT Ana Viveros PA-C LAB - BLOOD DRAW Edited Resu lt - Final [facility] [employer] [address] [address], [facility] [address] [place] [address] from Last 3 Months or Most Recently Relevant to Health Maintenance Insurance [employer] Member Subscriber Plan / Payer (Ef fective 2023-Present) Name:Felecia Mcdonald Relation to Subscriber:Self Name:Felecia Mcdonald Payer ID:[id number] Group ID:Not on file Type:Medicaid Address: [facility] [address] [place] [address] Care Teams Bread Panner Relationship Specialty Start Date End Date Ana Viveros PA-C [facility] [place] [address] PCP - General Internal Medicine 11/25/20
[2024-11-20 10:35] LABS: OBS Int Ctl Valid YES; OBS1 NEGATIVE (NEGATIVE)
[2024-11-20] MEDS: Lactated Ringers 1,000 ML 999 ML IV (10:41)
--- NOTE | 2024-11-20 11:15 | PC.NURSE ---
Iv inserted, labs drawn, IVF started per order, pt medicated for pain per order, call licea within reach, plan of care ongoing
[2024-11-20] MEDS: iohexoL 350 MG/ML 100 ML INFUS..BTL 85 ML IV (12:25)
--- NOTE | 2024-11-20 12:48 | PC.NURSE ---
pt ivf continue to run slowly, pt medicated for pain
--- NOTE | 2024-11-20 14:18 | PC.NURSE ---
patient a&ox3, pt ivf have completed, states her pain is down to 5/10. US has been performed-awaiting results, call licea within reach, plan of care ongoing
[2024-11-20 15:19] VITALS: BP 134/82; PULSE 76; RESP 18; O2SAT 100
[2024-11-20 15:28] VITALS: BP 134/82; PULSE 76; RESP 18; TEMP 36.7; O2SAT 100
== END 2024-11-20 15:29 | disposition home or self-care (01) ==
PROVIDERS: Emergency Provider Emergency Medicine; PCP Family Medicine
DX: R10.32 Left lower quadrant pain (principal); N20.0 Calculus of kidney; N39.0 Urinary tract infection, site not specified; R11.0 Nausea; Z79.899 Other long term (current) drug therapy
CPT/HCPCS: 36415; 74177; 76775; 80053; 81001; 82272; 84702; 85025; 96361; 96374; 96376; 99284; 99285; J2270; J7120; Q9967

== ENCOUNTER → 2024-11-20 11:31 | Outpatient (BNV) | payer MEDICAID, SELFPAY | PROVIDERS: Emergency Provider Emergency Medicine; PCP Family Medicine; Visit Provider Family Medicine | DX: N20.0 Calculus of kidney (principal); K57.90 Diverticulosis of intestine, part unspecified, without perforation or abscess without bleeding | CPT/HCPCS: 74177; 76775 ==

== ENCOUNTER 2024-12-03 17:58 | Emergency (ER) | payer MEDICAID, SELFPAY ==
--- NOTE | ~2024-12-03 | CT_ITS ---
CLINICAL HISTORY: severe pain after endometrial ablation CT abdomen and pelvis with contrast Comparison: CT/SR - ABDOMEN ABD_PELVIS_IV_CONTRAST (ADULT) - 11/20/24 12:21 EDT Findings: The lung bases are clear. Gallbladder is within normal limits. Redemonstration of multiple nonobstructing renal stones bilaterally measuring up to 6.4 mm in size. No hydronephrosis. No bowel obstruction, pneumoperitoneum, or pneumatosis. Moderately dilated endometrium measuring 2.0 cm. Small free fluid is noted within the cul-de-sac. Normal appendix. No acute fracture. IMPRESSION: No acute findings. Moderately dilated endometrium measuring 2.0 cm, likely related to postsurgical procedure. Small amount of free fluid within the cul-de-sac. Redemonstration of multiple nonobstructing renal stones bilaterally. No hydronephrosis. This document has been electronically signed by: Luciana Langford MD on 12/03/2024 22:36:55
[2024-12-03 18:08] VITALS: BP 168/72; PULSE 104; RESP 18; TEMP 36.4; O2SAT 98; BMI 28.7
--- NOTE | 2024-12-03 18:08 | ED.ABDPAIN ---
HPI - Abdominal Pain General Chief Complaint: Urogenital-Female Stated Complaint: ablasion 11/27 pain front and back Time Seen by Provider: 12/03/24 19:52 History of Present Illness ED Provider: Daquan KUMAR narrative: The patient is a 39-year-old female who had an endometrial ablation of her uterus 1 week ago on November 27 at [facility]. The indication for the procedure was abnormal uterine bleeding. The patient had an ablation of the endometrial NovaSure with a hysteroscopy. The attending surgeon was Dr. Jared Carolina. The patient presents to the emergency room by deepika complaining of severe pelvic discomfort. She says that she has had the pain ever since the surgery. She was seen at the Gynecology office today after the surgery and had a CAT scan on November 28 to evaluate these symptoms. The CT was felt to show primarily post procedural changes. The patient says that she has continued to have pain since then. She says the pain has been the same pain. She says there was some vaginal discharge for the 1st couple of days after the procedure but she has not had any vaginal discharge recently. She has not had any fever. No vomiting. Related Data Previous Rx's ?Medication ?Instructions ?Recorded amoxicillin 875 mg-potassium 1 tab PO BID #7 tabs 09/06/24 clavulanate 125 mg tablet fluconazole 150 mg tablet 150 mg PO DAILY 1 dose #1 tab 09/06/24 oxycodone 5 mg tablet 5 mg PO Q6H PRN pain (scale score 09/06/24 7-10) #12 tabs lorazepam 1 mg tablet (Ativan) 1 mg PO BID PRN anxiety #7 tabs 11/13/24 prochlorperazine maleate 5 mg 5 mg PO TID PRN nausea and 11/13/24 tablet (Compazine) vomiting #10 tabs cefuroxime axetil 500 mg tablet 500 mg PO BID #10 tabs 11/20/24 magnesium citrate (OneLAX 300 ml PO DAILY #296 mL 11/20/24 Magnesium Citrate oral solution) simethicone 125 mg capsule (Gas 125 mg PO DAILY PRN abdominal 11/20/24 Relief (simethicone)) distention #10 caps Allergies Allergy/AdvReac Type Severity Reaction Status Date / Time hydromorphone (Dilaudid) Allergy Unknown hives Verified 12/03/24 18:09 metoclopramide (From Reglan) Allergy Unknown Verified 12/03/24 18:09 ibuprofen (From MOTRIN) AdvReac Mild STOMACH Verified 12/03/24 18:09 UPSET Review of Systems Review of Systems Yes all other systems are reviewed and are negative [facility] Past Medical History Medical History Diverticulitis Cannabis-induced disorder Shortness of breath Sinus tachycardia Cyclical vomiting Anxiety Ureteric calculus Family History Family History Father Heart disease Other Hypokalemia Social History Social History Household Members: Spouse and Children Housing: House Do you presently have visiting nurse or other home services: No Alcohol intake: never Patient Tobacco Use Status: Never used Tobacco Substance Use Type: Marijuana Advance Directives: No Advance Directives Information Provided: No service: No Physical Exam ED Vital Signs: Vital Signs - 24 hr 12/03/24 18:08 12/03/24 22:10 Temperature 97.5 F 97.5 F Pulse Rate 104 H 90 Respiratory Rate 18 18 Blood Pressure 168/72 H 145/73 H Pulse Oximetry 98 98 Oxygen Delivery Method Room Air Room Air BMI result Body Mass Index 28.7 Const Other: The patient is a 39-year-old female who looked very upset and uncomfortable. She was crying a great deal. Orientation/consciousness: patient oriented x3 HENMT Other: The face is symmetrical. ?Mucous membranes moist. Eyes Other: Pupils are round equal, conjunctivae are clear, extraocular movements intact Neck Neck: Yes normal visual inspection and Yes full ROM Resp Effort & Inspection: normal respiratory effort Auscultation: clear to auscultation bilaterally Cardio Rate: regular rate Rhythm: regular rhythm Heart sounds: S1 normal heart sound present and S2 normal heart sound present GI Other: There is some lower abdominal tenderness. Skin Other: The skin is dry and unremarkable Neuro General: patient oriented x3, gait normal, moves all extremities, no focal motor deficits and CN's II-XI intact bilaterally Extrem Other: There is no calf swelling or tenderness. No asymmetry. No peripheral edema. 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 Deferred additional HPI, ROS, PE to primary provider. 39 yo female who had a uterine ablation with Dr Carolina on 11/27 at [facility] here with abdominal pain/back pain since the procedure. Has been moving her bowels. Will obtain labs, UA VSS Medical Decision Making Medical Decision Making MDM Narrative: The patient is a 39-year-old female who seemed extremely uncomfortable and complaining of great deal of pain that she says she has had ever since the surgery she had at [facility] 1 week ago on November 27 when she had an endometrial ablation. Because of the degree of pain the patient was given morphine and ketorolac. She seemed to have a remarkable relief of her discomfort. A CT of her abdomen and pelvis was done that shows post procedural changes but no definite acute findings otherwise. The patient was very eager for discharge, in fact she had requested discharge before the results of the CAT scan. She was discharged with instructions to contact your Gynecology office tomorrow. Lab Data 12/03/24 18:35 12/03/24 18:35 Labs: Lab Results 12/03/24 Range/Units 18:35 WBC 13.1 H (4.8-10.8) X10*3/uL RBC 5.35 (4.20-5.50) X10*6/uL Hgb 13.2 (12.0-16.0) g/dl Hct 41.4 (37.0-47.0) % MCV 77.4 L (80.0-98.0) fL MCH 24.7 L (27.0-33.0) pg MCHC 31.9 (31.0-35.0) g/dl RDW 15.2 (11.0-16.0) % Plt Count 254 (160-400) X10*3/uL MPV 11.0 (9.4-12.3) fL Immature Gran % (Auto) 0.4 (0.0-0.4) % Neut % (Auto) 63.7 (45-73) % Lymph % (Auto) 27.0 (20-40) % [place] % (Auto) 7.0 (2-11) % Eos % (Auto) 1.4 (0-4) % Baso % (Auto) 0.5 (0-2) % Lymph # (Auto) 3.5 (1.2-4.9) X10*3/uL [place] # (Auto) 0.9 (0.1-1.2) X10*3/uL Eos # (Auto) 0.2 (0.0-0.4) X10*3/uL Baso # (Auto) 0.1 (0.0-0.2) X10*3/uL Abs Immat Gran (auto) 0.05 H (0.00-0.03) X10*3/uL Absolute Neuts (auto) 8.3 (2.0-8.3) x10*3/uL Absolute Nucleated RBC 0.000 (0.0-0.012) X10*3/uL Nucleated RBC % (auto) 0.0 (0.0-0.2) /100WBC Sodium 141 (135-145) mmol/L Potassium 4.1 (3.3-5.1) mmol/L Chloride 109 H (96-108) mmol/L Carbon Dioxide 21 L (22-29) mmol/L Anion Gap 15 (12-20) BUN 16 (9-16) mg/dL Creatinine 0.86 (0.5-1.4) mg/dL Estim Creat Clear Calc 95.9 Estimated GFR > 60 Random Glucose 98 (60-115) mg/dL Calcium 9.3 (8.4-10.2) mg/dL Total Bilirubin 0.5 (0.0-1.0) mg/dL Direct Bilirubin 0.1 (0.0-0.5) mg/dL AST 12 (5-31) U/L ALT 12 (0-31) U/L Alkaline Phosphatase 89 (39-117) U/L Total Protein 7.4 (6.5-8.0) g/dL Albumin 4.4 (3.5-5.0) g/dL Beta HCG, Quant < 2 mIU/mL Medications Administered Discontinued Medications Generic Name Dose Route Start Last Admin Trade Name Freq PRN Reason Stop Dose Admin Droperidol 1.25 mg 12/03/24 19:53 12/03/24 20:09 Droperidol 5 Mg/2 Ml Vial IVPUSH 12/03/24 19:54 1.25 mg ONCE ONE Administration Sodium Chloride 1,000 mls @ 999 mls/hr 12/03/24 20:00 12/03/24 21:12 Ns IV 12/03/24 21:00 Infused .Q1H1M KANDY Infusion Iohexol 100 ml 12/03/24 20:31 12/03/24 20:31 Iohexol 350 Mg/Ml 100 Ml Infus..Btl IV 12/03/24 20:32 85 ml ONCE ONE Administration Ketorolac Tromethamine 15 mg 12/03/24 19:58 12/03/24 20:09 Ketorolac Tromethamine 15 Mg/Ml Vial IVPUSH 12/03/24 19:59 15 mg ONCE ONE Administration Morphine Sulfate 5 mg 12/03/24 19:53 12/03/24 20:06 Morphine Sulfate 10 Mg/Ml Cartridge IVPUSH 12/03/24 19:54 5 mg ONCE ONE Administration Protocol Discharge Plan Discharge Clinical Impression: Pelvic pain Patient Disposition: Home, Self-Care Additional Instructions: At the moment we do not have the formal results of the CAT scan of your abdomen and pelvis. I will call you if there are any significant results. Your blood tests seem reassuring. Please continue to use ibuprofen and acetaminophen as needed for pain. Please call the Gynecology office tomorrow to let them know how you are doing and to follow up on the results of the CAT scan. Get checked again in the office if you are continuing to have severe symptoms. Return to the emergency room if significantly worse. Prescriptions: No Action fluconazole 150 mg tablet 150 mg PO DAILY Qty: 1 0RF Rx Instructions: Take it tomorrow, 09/07/24 amoxicillin-pot clavulanate 875-125 mg tablet 1 tab PO BID Qty: 7 0RF oxycodone 5 mg tablet 5 mg PO Q6H PRN (Reason: pain (scale score 7-10)) Qty: 12 0RF Rx Instructions: Partial Fill upon patient request. prochlorperazine maleate [Compazine] 5 mg tablet 5 mg PO TID PRN (Reason: nausea and vomiting) Qty: 10 0RF lorazepam [Ativan] 1 mg tablet 1 mg PO BID PRN (Reason: anxiety) Qty: 7 0RF cefuroxime axetil 500 mg tablet 500 mg PO BID Qty: 10 0RF simethicone [Gas Relief (simethicone)] 125 mg capsule 125 mg PO DAILY PRN (Reason: abdominal distention) Qty: 10 0RF magnesium citrate [OneLAX Magnesium Citrate] Solution 300 ml PO DAILY Qty: 296 0RF Referrals: Jared Carolina MD [Physician, NEURODIAGNOSTIC TECHNOLOGIST] Interventions: ED Discharge Assessment Last Done: 12/03/24 22:10 Discharge Date/Time: 12/03/24 22:14 Print Language: Polish
[2024-12-03 18:39] LABS: MANUAL DIFF FLAG NO
[2024-12-03 18:40] LABS: Hematocrit 41.4 % (37.0-47.0); Hemoglobin 13.2 g/dl (12.0-16.0); Imm Gran Abs Auto 0.05 X10*3/uL (0.00-0.03); Imm Gran Pct Auto 0.4 % (0.0-0.4); Lymphocytes Absolute Auto 3.5 X10*3/uL (1.2-4.9); Mean Corpuscular HGB Conc 31.9 g/dl (31.0-35.0); Mean Corpuscular Hemoglobin 24.7 pg (27.0-33.0); Mean Corpuscular Volume 77.4 fL (80.0-98.0); NRBC Abs Auto 0.000 X10*3/uL (0.0-0.012); NRBC Pct Auto 0.0 /100WBC (0.0-0.2); Platelet Count 254 X10*3/uL (160-400); Red Blood Count 5.35 X10*6/uL (4.20-5.50); White Blood Count 13.1 X10*3/uL (4.8-10.8)
[2024-12-03 18:55] LABS: Alanine Aminotransferase 12 U/L (0-31); Albumin Level 4.4 g/dL (3.5-5.0); Alkaline Phosphatase 89 U/L (39-117); Anion Gap 15 (12-20); Aspartate Amino Transferase 12 U/L (5-31); Blood Urea Nitrogen 16 mg/dL (9-16); Calcium 9.3 mg/dL (8.4-10.2); Carbon Dioxide 21 mmol/L (22-29); Chloride 109 mmol/L (96-108); Creatinine Clr Calc Pharmacy 95.9; Estimated Glomerular Filt Rate > 60; Potassium 4.1 mmol/L (3.3-5.1); Sodium 141 mmol/L (135-145); Total Protein 7.4 g/dL (6.5-8.0)
--- OUTSIDE RECORDS SUMMARY | 2024-12-03 19:52 | XMS_ITS | Clinical Summary ---
Author Organization [employer] Address [address] [place] [address] Care Team Providers Care Hr Operations Advisor Name Role Phone Unavailable Primary Care Provider Unavailabl e Encounters Date Type Department Care Team Description 09/07/2024 Telephone [facility] MEDICINE [address] [place], [place] [id number] Arron Maldonado MD from Last 3 Months [...]
--- OUTSIDE RECORDS SUMMARY | 2024-12-03 19:52 | XMS_ITS | Clinical Summary ---
Author Organization [facility] Address [address] [place] [address] Care Team Providers Care Driver Service Technician Name Role Phone Ana Viveros PA-C Primary [...] noted on CT abdomen - done at [facility] 09/22/14 - impression multiple bilateral non obstructing renal calculi the largest up to 5 mm. No hydronephrosis Epigastric abdominal pain 08/21/2014 Overview (08/21/2014): EGD - Done at [facility] - 08/14/14 -Findings Normal esophagus , stomach Mucosa, Normal Duodenum- awaiting stomach Biopsy Unspecified asthma(493.90) 03/06/2014 Overview (06/03/2014): per PMH as noted on previous medical records -- Normal spirometry 08/30/07 Right nephrolithiasis Without evidence of hydron ephrosis 03/06/2014 Overview (03/06/2014): UG gall Bladder 06/22/13 Hx of gastritis 03/06/2014 Overview (03/06/2014): Per hospital records [facility] ADHD (attention deficit hyperactivity disorder) 02/20/2014 Overview (02/20/2014): As per hospital record reviewed Marijuana use 02/20/2014 Overview (02/20/2014): As per hospital record reviewed Immunizations Immunization Administration Dates Next Due Flu, Preservative Free 12/22/2019,01/30/2016 Hep B, Adult/Adol ([id number]/RECOMBIVAX-ADULT) 09/20/2001 Hep B,adult,adjuvanted (HEPLISAV) 06/15/2022 MMR (MMR [...] Due Date Last Done Comments HPV Screening (self-collect) 1987 HPV Screening 1987 Pap + HPV [...] 08/07/2023 08/06/2022 Alcohol and Drug Screen 02/09/2024 06/16/19, 02/20/2021, 04/22/2018, Additional history exists Depression Annual Screen 02/09/2024 08/06/2022, 02/08 [id number] ( season) 2024 023, 05/06/2022 Imm-Influenza (#1) [...] Conization Discontinued Cervical Cryotherapy Discontinued Colposcopy Discontinued Excision/Leep Discontinued HPV Genotyping Discontinued Vaginal [...] HEPATITIS C ANTIBODY NON-REACT SERGEY NON-REACT SERGEY [employer] SIGNAL TO CUT-OFF 0.14 <1.00 [employer] Comment: HCV antibody was non-reactive. There is no laboratory evidence of HCV infection. In most cases, no further action is required. However, if recent HCV exposure is suspected, a test for HCV RNA (test code 55890) is suggested. For additional information please refer to http://education.Snapjoy/faq/CLZ27o0 (This link is being provided for informational/ educational purposes only.) Blood Blood / Unknown 06/15/2022 2 :47 PM EDT 06/15/2022 2:47 PM EDT us Ana Viveros PA-C LAB - BLOOD DRAW Edited Resu lt - Final [employer] [facility] [address] [place] [id number], [facility] [address] [address] * HIV Ag & Ab with Reflex Western Blot (06/15/2022 2:47 PM EDT) Pathologist [facility] HIV AG/AB, 4TH GEN NON-REAC TIVE NON-REAC TIVE [employer] Comment: HIV-1 antigen and HIV-1/HIV-2 antibodies were [...] purpose. For additional information please refer to http://education.Snapjoy/faq/ZUF854 (This link is being provided for informational/ educational purposes only.) The performance of this assay has not been clinically validated in patients less than 2 years old. Blood Blood / Unknown 06/15/2022 2 :47 PM EDT 06/15/2022 2:47 PM EDT us Ana Viveros PA-C LAB - BLOOD DRAW Final Resul t [facility] [address] [address], [facility] [address] [address] * (ABNORMAL) CMP (06/15/2022 2:47 PM EDT) Pathologist [facility] GLUCOSE 108(H) 65 - 99 mg/dL [employer] Comment: Fasting reference interval For someone without known diabetes, a glucose value between 100 and 125 mg/dL is consistent with prediabetes and should be confirmed with a follow-up test. UREA NITROGEN (BUN) 9 7 - 25 mg/dL [employer] CREATININE (blood) 0.48(L) 0.50 - 0.97 mg/dL [employer] EGFR 127 > OR = 60 mL/min/1. 73m2 [employer] Comment: The eGFR is based on the CKD-EPI 202 equation. To calculate the new eGFR from a previous Creatinine or Cystatin C result, go to https://www.kidney.org/professionals/ kdoqi/gfr%5Fcalculator BUN/CREATININE RATIO 19 6 - 22 (calc) [facility] SODIUM 138 135 - 146 mmol/L [facility] POTASSIUM 3.9 3.5 - 5.3 mmol/L [facility] CHLORIDE 107 98 - 110 mmol/L [facility] CARBON DIOXIDE 22 20 - 32 mmol/L [facility] CALCIUM 9.2 8.6 - 10.2 mg/dL [facility] PROTEIN, TOTAL 6.5 6.1 - 8.1 g/dL [facility] ALBUMIN 4.2 3.6 - 5.1 g/dL [facility] GLOBULIN 2.3 1.9 - 3.7 g/dL (calc) [facility] ALBUMIN/GLOBULI N RATIO 1.8 1.0 - 2.5 (calc) [facility] BILIRUBIN, TOTAL 0.6 0.2 - 1.2 mg/dL [facility] ALKALINE PHOSPHATASE 54 31 - 125 U/L [facility] AST 10 10 - 30 U/L [facility] ALT 10 6 - 29 U/L [facility] Blood Blood / Unknown 06/15/2022 2 :47 PM EDT 06/15/2022 2:47 PM EDT Ana Viveros PA-C LAB - BLOOD DRAW Edited Resu lt - Final [facility] [address] [address], [facility] [address] [phone] from Last 3 Months or Most Recently Relevant to Health Maintenance Insurance [facility] Member Subscriber Plan / Payer (Ef fective 2023-Present) Name:Felecia Mcdonald Relation to Subscriber:Self Name:Felecia Mcdonald Payer ID:[id number] Group ID:Not on file Type:Medicaid Address: [facility] [address] [place] [address] Care Teams Driver Service Technician Relationship Specialty Start Date End Date Ana Viveros PA-C [address] [place] [address] PCP - General Internal Medicine 11/25/20
[2024-12-03] MEDS: iohexoL 350 MG/ML 100 ML INFUS..BTL IV (20:31)
--- NOTE | 2024-12-03 21:51 | PC.NURSE ---
PT stated that she wants to leave, states that she feels better, pt still pending results, still wants to leave, Provider is aware
[2024-12-03 22:10] VITALS: BP 145/73; PULSE 90; RESP 18; TEMP 36.4; O2SAT 98
== END 2024-12-03 22:14 | disposition home or self-care (01) ==
PROVIDERS: Nurse Practitioner Family; Emergency Provider Emergency Medicine; PCP Family Medicine
DX: R10.20 Pelvic and perineal pain unspecified side (principal); N89.8 Other specified noninflammatory disorders of vagina; R11.0 Nausea; Z79.899 Other long term (current) drug therapy
CPT/HCPCS: 36415; 74177; 80048; 80076; 84702; 85025; 96361; 96374; 96375; 99284; 99285; J1790; J1885; J2270; Q9967

== ENCOUNTER → 2024-12-03 19:57 | Outpatient (BNV) | payer MEDICAID, SELFPAY | PROVIDERS: Emergency Provider Emergency Medicine; PCP Family Medicine; Visit Provider Student in an Organized Health Care Education/Training Program | DX: N85.00 Endometrial hyperplasia, unspecified (principal) | CPT/HCPCS: 74177 ==

== ENCOUNTER 2025-01-17 15:16 | Outpatient (AMB) | payer MEDICAID, SELFPAY ==
--- OUTSIDE RECORDS SUMMARY | 2025-01-16 10:00 | XMS_ITS | Encounter Summary ---
Author Organization [facility] Address [address] [facility] [address] [place] [phone] Phone Care Team Providers Care Heel Seat Laster Name Role Phone Pcp, Unknown Unavailable Unavailable Alexei Musa Primary Care Provider [phone] Reason for Visit * Consultation (Routine) - Authorized Specialty Diagnoses / Procedures Referred By Tanisha maldonado Referred To Contact Gastroenterology Diagnoses URG [facility] Procedures URGENT Alexei Musa PA [address] [place] [address] Phone: tel: fax: mailto:[email or web address] [address] [place] [address] Phone: tel: fax: [email or web address] Referral ID Status Reason Start Date Expiration Date V isits Requested Visits Authorized [id number] Authorized 01/16/2025 01/16/2026 6 6 Encounter Details Date Type Department Care Team (Latest Contact Info) Description 01/16/2025 10:00 AM EST Office Visit [facility] [address] [place] [address] Unknown, Unknown, Burke Jaimes MD [address] [place] [address] [email or web address] Diarrhea, unspecified type (Primary Dx); Diverticulosis large intestine w/o perforation or abscess w/bleeding; Gastroesophageal reflux disease, unspecified whether esophagitis present; Helicobacter pylori infection Social History Tobacco Use Types Packs/Day Years [...] AM EDT Sexual Orientation Not on file 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 female, referred to me by Dr. Shantelle Pandey, who presents for GERD H.Pylori, abdominal/pelvic pain, history of diverticulitis. 39-year-old female with past medical history of tubal ligation, appendectomy, kidney stones, recentdiverticulitis diagnosis/treatment seen in ER 10/23/2024 CT scan revealed colonic diverticulosis without active diverticulitis and a pelvic ultrasound transabdominal and transvaginal was unremarkable. Previous [facility] ER visits for cyclical vomiting syndrome associated with marijuana 04/09/2023. Patient stopped smoking marijuana for 7 months. Reports having bad heartburn/reflux 10+ years despite use of omeprazole twice daily. Previous EGD 08/14/2014 [facility] reportedly normal. Patient reports soft, diarrhea, no warning to have BM since Oct 2024. BM 4- 5/day prior 2/day. No bleeding, mucous, rare nocturnal. Patient reports having H.pylori breath test reportedly positive at Dr. Pandey but never took antibiotics few months ago 10/12/2024 has meds at home but never took. No previous colonoscopy. Regular menses, s/p tubal ligation Allergen Reactions Dilaudid [Hydromorphone] Motrin [Ibuprofen] Nausea and/or Vomiting Reglan [Metoclopramide Hcl] Hives Current Outpatient Medications Ordered in [facility] Medication Sig albuterol 90 mcg/actuation inhaler Inhale 2 puffs into the lungs. cyclobenzaprine (FLEXERIL) 10 MG tablet Take 1 tablet (10 mg total) by mouth 3 (three) times a day as needed. (Patient not taking: Reported on 11/24/2023) oxyCODONE 5 MG immediate release tablet Take 1 tablet (5 mg total) by mouth every 4 (four) hours asneeded for pain (specific location in comments) (severe pain). Partial fill ok (Patient not taking:Reported on 01/16/2025) Past Surgical History: Procedure Laterality Date APPENDECTOMY TUBAL LIGATION Review of Systems A 10 point review of systems was performed and was negative. Specifically, no headaches, neurologicsymptoms, fevers, shakes or chills, shortness of breath or chest pain, palpitations, urinary or gynecologic symptoms, no inflammatory joint changes or skin rashes, unexplained weight loss, or pedal edema. No family history on file. 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 Immunizations Immunization History Administered Date(s) Administered Hepatitis B Adult 09/20/2001 Influenza Trivalent MDCK Preservative Free IM 11/21/2024 MMR 09/21/2011 Tdap 07/03/2011, 10/04/2017 Objective: BP 124/80 (Patient Position: Sitting) Pulse 88 Ht 165.1 cm (5' 5 ) Wt 83.9 kg (185 lb) [id number]% BMI 30.79 kg/m?? General appearance: Healthy and well appearing. Skin: Negative. HEENT: Head normal. Neck: Normal. Lungs: Clear. Heart: Heart sounds normal without murmurs. . Abdomen Soft and benign, no masses, no tenderness, no hepatosplenomegaly. Rectal exam Not performed. Extremities: No inflammatory joint changes, no edema noted. Assessment & Plan Diverticulosis large intestine w/o perforation or abscess w/bleeding Orders: Endoscopy Case Request: ESOPHAGOGASTRODUODENOSCOPY Gastroesophageal reflux disease, unspecified whether esophagitis present Orders: Endoscopy Case Request: ESOPHAGOGASTRODUODENOSCOPY Helicobacter pylori infection Previously untreated despite awareness of risk for gastric cancer and peptic ulcer disease. Orders: Endoscopy Case Request: ESOPHAGOGASTRODUODENOSCOPY Given the fact that the patient has not taken antibiotics we will proceed with upper endoscopy to verify if she has H. pylori infection. Diarrhea, unspecified type Rule out IBD/Colitis A colonoscopy is also recommended Orders: Endoscopy Case Request: COLONOSCOPY Colonoscopy is recommended. I have explained the risks not limited to perforation, bleeding, missedlesions, need for surgery and alternatives to colonoscopy. The patient (or health care proxy) understands these risks and wishes to proceed. Opportunity for questions and alternatives were discussed,and informed consent was obtained. Patient expresses understanding and agrees with plan. All questions were answered satisfactorily. No follow-ups on file. documented in this encounter Miscellaneous Notes * Assessment & Plan Note - Burke Larson MD - 01/16/2025 10:00 AM EST Associated Problem(s): Diverticulosis large intestine w/o perforation or abscess w/bleeding Orders: Endoscopy Case Request: ESOPHAGOGASTRODUODENOSCOPY * Assessment & Plan Note - Burke Larson MD - 01/16/2025 10:00 AM EST Associated Problem(s): Helicobacter pylori infection Previously untreated despite awareness of risk for gastric cancer and peptic ulcer disease. Orders: Endoscopy Case Request: ESOPHAGOGASTRODUODENOSCOPY Given the fact that the patient has not taken antibiotics we will proceed with upper endoscopy to verify if she has H. pylori infection. documented in this encounter Plan of Treatment Upcoming Encounters Date Type Department Care Team (Latest Contact Info) Description 01/23/2025 Procedure Pass [facility] Endoscopy Admitting Dept Virtual Department [address] [place] [phone] 01/23/2025 9:00 AM EST Hospital Encounter [facility] Endoscopy Admitting Dept Virtual Department [address] [place] [phone] Burke Larson MD [address] [place] [phone] [email or web address] 01/23/2025 9:00 AM EST - 01/23/2025 9:30 AM EST Surgery [facility] Endoscopy Admitting Dept Virtual Department [address] [place] [phone] Burke Larson MD [address] [place] [phone] [email or web address] ESOPHAGOGASTRODUODENOSCOPY Scheduled Procedures Name Priority Associated Diagnoses Date/Ti me ESOPHAGOGASTRODUODENOSCOPY Diverticulosis large intestine w/o perforation or abscess w/bleeding Gastroesophageal reflux disease, unspecified whether esophagitis present Helicobacter pylori infection 01/23/2025 9:00 AM EST COLONOSCOPY Diverticulosis large intestine w/o perforation or abscess w/bleeding Gastroesophageal reflux disease, unspecified whether esophagitis present Helicobacter pylori infection 01/23/2025 9:00 AM EST COLONOSCOPY Diarrhea, unspecified type documented as of this encounter Visit Diagnoses Diagnosis Diarrhea, unspecified type- Primary Diverticulosis large intestine w/o perforation or abscess w/bleeding Gastroesophageal reflux disease, unspecified whether esophagitis present Helicobacter pylori infection Helicobacter pylori (H. pylori) Diverticulosis large intestine w/o perforation or abscess w/bleeding Gastroesophageal reflux disease, unspecified whether esophagitis present Helicobacter pylori infection Helicobacter pylori (H. pylori) documented in this encounter Care Teams Heel Seat Laster Relationship Specialty Start Date End Date Alexei Musa PA [address] [place] [phone] [email or web address] PCP - General Physician Filling Layer Up 01/11/25 Pcp, Unknown 11/08/23 documented as of this encounter Additional Source Comments The information contained in this document represents components of the legal health record. It is not the complete legal health record.[facility]
--- NOTE | 2025-01-17 15:31 | MHC.OFFVIS ---
Intake Visit Reasons: Kidney Stones/UTI/UA(set) Intake Note: Reason for Visit: New Patient Kidney Stones/UTI Urology Meds: None Blood Thinners: None Antibiotic Allergy: None Labs: BUN: 16 Creatinine: 0.86 (12/03/2024) Imaging: Abdomen/Pelvis CT (12/03/2024) Renal Ultrasound (11/20/2024) Last PVR: None Unable to provide urine sample Pension Fund Manager Required: No Accompanied by: Self / Same As Patient Allergies hydromorphone (Dilaudid) Allergy (Unknown, Verified 01/17/25 15:34) hives metoclopramide (From Reglan) Allergy (Verified 01/17/25 15:34) Unknown ibuprofen (From MOTRIN) Adverse Reaction (Mild, Verified 01/17/25 15:34) STOMACH UPSET HPI Comments Details: Felecia is a pleasant female. She seen for the following urologic conditions - nephrolithiasis Bilateral Last seen 2 years ago Imaging - 12/02 multiple nonobstructing renal stones bilaterally measuring up to 6.4 mm in size Based on review of imaging would recommend bilateral ureteroscopy Nephrolithiasis Prior stone history of a 10 years ago Recent presentation through emergency room for right-sided flank pain Imaging - CT - There is a 5 mm stone in distal right ureter causing mild right hydroureter and moderate right hydronephrosis. There are multiple punctate bilateral nephroliths measuring up to 5 mm Intervention - 09/30 right ureteroscopy Stone composition - 09/30 carbonate apatite stone 90% Laboratories WBC 14.4, calcium 9.8, creatinine 0.8 PFSH Medical History Diverticulitis Cannabis-induced disorder Shortness of breath Sinus tachycardia Cyclical vomiting Anxiety Ureteric calculus Family History Father Heart disease Other Hypokalemia Social History Household Members: Spouse and Children Housing: House Do you presently have visiting nurse or other home services: No Alcohol intake: never Patient Tobacco Use Status: Never used Tobacco Substance Use Type: Marijuana service: No Review of Systems Const Denies chills and Denies fever(s) Card Reports no additional complaints and Denies syncope Resp Denies cough GI Denies abdominal pain and Denies heartburn Reports as per HPI and Denies change in libido Neuro Denies syncope Psych Denies change in libido Endo Denies change in libido Physical Exam Const General: cooperative, healthy appearing, comfortable and no acute distress Orientation/consciousness: patient oriented x3 HEENT Face and sinus: Yes normal facial exam Mouth: moist mucous membranes Neck Neck: Yes normal visual inspection, Yes full ROM and Yes trachea midline Chest Chest palpation & inspection: normal inspection of the chest Resp Effort & Inspection: normal respiratory effort, able to speak in complete sentences and no respiratory distress GI Inspection: Yes normal to inspection Back/Spine/Pelvis Cervical Spine: normal cervical lordosis Thoracic/Lumbar Spine: thoracic and lumbar spine normal to inspection Skin General skin exam: no rashes or lesions noted Neuro General: patient oriented x3, gait normal, tone normal and moves all extremities Extrem General: Yes normal to inspection and Yes capillary refill normal Assessment & Plan Assessment & Plan (1) Bilateral nephrolithiasis: Code(s): N20.0 - Calculus of kidney Category: Medical Plan Ureteroscopy We discussed the nature of the decision and reasonable alternatives for performing ureteroscopy. Options such as medical therapy were discussed. Interventions include chemical dissolution, ESWL, ureteroscopy with laser lithotripsy and stent placement, PCNL. The relative uncertainties and benefits related to each alternate procedure were adequately discussed. General surgical risks including, but not limited to - pain, bleeding, infection, myocardial infarction, pulmonary embolus, deep vein thrombosis and cerebrovascular accident which may result in further hospitalization were discussed. Full disclosure of the procedure as well as all major risks, benefits and complications were discussed including but not limited to damage to the urethra, bladder and kidney infection, damage to the ureter, stent migration or malposition, scarring to the renal pelvis, remnant stone fragments, subsequent stone passage with need for secondary procedures. The overall secondary procedure rate is approximately 10-15%. The overall clearance rate is approximately 90-95%. Success of the procedure in the short-term does not necessarily guarantee that long-term success will be maintained. Suitable follow up will need to be maintained. The patient showed understanding of discussion and wishes to proceed with - cystoscopy, retrograde, ureteroscopy, possible lithotripsy/stone basketing and stent on the bilateral side Patient Instructions: This note is constructed using voice recognition software. While every effort has been made to ensure accuracy green marketing analyst errors may have been included. Imaging studies, laboratory and physical exam results were discussed and reviewed in detail. No major barriers to patient understanding were identified. An opportunity to ask questions regarding the treatment plan was provided. All questions were answered. The patient expressed understanding and agreement with the above treatment plan. The patient is aware they should contact our office by phone for worsening of their current condition or the appearance of new urologic symptoms. Compliance is encouraged with any medications and followup testing that is ordered. It is a privilege to participate in the urologic care of your patient. If you have any questions or concerns regarding treatment for the above conditions, or other urologic issues, please do not hesitate to contact me. The office telephone contact is [phone]. Sincerely, Dr Aquiles Irwin MD, [facility] - Urology Compassionate Specialist Care for the Genitourinary System Coding Level of Care Code Est Pt Level 4 (61303) Diagnoses Bilateral nephrolithiasis N20.0
--- OUTSIDE RECORDS SUMMARY | 2025-01-17 23:48 | XMS_ITS | Clinical Summary ---
Author Organization [facility] Address [email or web address] [address] Phone Care Team Providers Care Diet Tech Name Role Phone Pcp, Unknown Unavailable Unavailable Alexei Musa Primary Care Provider [phone] Allergies Active Allergy Reactions Criticality Noted Date Comments Hydromorphone 10/24/2022 Ibuprofen Nausea and/or Vomiting 11/08/2023 Metoclopramide Hcl Hives 11/08/2023 Medications cyclobenzaprine (FLEXERIL) 10 MG tablet Take 1 tablet (10 mg total) by mouth 3 (three) times a day as needed. 30 tablet 11/15/19 24 Active Additional Information Patient not taking.Reported on 11/24/2023 albuterol 90 mcg/actuation inhaler Inhale 2 puffs into the lungs. 06/16/19 23 Active omeprazole (PRILOSEC) 20 MG tablet Take 20 mg by mouth 2 (two) times a day. Active bisacodyl (DULCOLAX) 5 mg Tab tablet Take 1 tablet (5 mg total) by mouth as directed for 1 day. At 2pm prior to colonoscopy 4 tablet 01/17/20 25 025 Active oxyCODONE 5 MG immediate release tablet Take 1 tablet (5 mg total) by mouth every 4 (four) hours as needed for pain (specific location in comments) (severe pain). Partial fill ok 4 tablet 10/24/19 25 025 Discontinu ed(No longer taking) sod picosulf-mag ox-citric ac (CLENPIQ) 10 mg-3.5 gram- 12 gram/160 mL Soln Take 2 Bottles by mouth once for 1 dose. Take first dose at 5pm night before and morning dose 5 hours prior to procedure 320 mL 01/17/20 25 025 polyethylene glycol (GOLYTELY) 236-22.74-6.74 -5.86 gram solutionIndicati ons:Diverticulos is large intestine w/o perforation or abscess w/bleeding,Gastr oesophageal reflux disease, unspecified whether esophagitis present,Diarrhea , unspecified type,Helicobacte r pylori infection Take 4,000 mL by mouth once for 1 dose. 1 mL 01/17/20 25 025 Active Problems Problem Noted Date Diagnosed Date Diverticulosis large intesti ne w/o perforation or abscess w/bleeding 12/31/2024 Assessment & Plan (01/16/2025 10:13 AM EST): Orders: Endoscopy Case Request: ESOPHAGOGASTRODUODENOSCOPY History of colonic diverticulitis 12/31/2024 Kidney stones 12/31/2024 Low back pain 12/31/2024 Helicobacter pylori infection 12/31/2024 Assessment & Plan (01/16/2025 10:13 AM EST): Previously untreated despite awareness of risk for gastric cancer and peptic ulcer disease. Orders: Endoscopy Case Request: ESOPHAGOGASTRODUODENOSCOPY Given the fact that the patient has not taken antibiotics we will proceed with upper endoscopy to verify if she has H. pylori infection. Marijuana use 02/20/2014 Overview (12/31/2024): As per hospital record reviewed Encounters Date Type Department Care Team Description 01/16/2025 10:00 AM EST Office Visit [facility] [address] [place] [address] Unknown, Unknown, MD Larson, Burke Prado MD Diarrhea, unspecified type (Primary Dx); Diverticulosis large intestine w/o perforation or abscess w/bleeding; Gastroesophageal reflux disease, unspecified whether esophagitis present; Helicobacter pylori infection 01/16/2025 Orders Only [facility] [address] [place] [address] Burke Larson MD Diverticulosis large intestine w/o perforation or abscess w/bleeding (Primary Dx); Gastroesophageal reflux disease, unspecified whether esophagitis present; Diarrhea, unspecified type; Helicobacter pylori infection 10/23/2024 7:42 PM EDT - 10/23/2024 8:53 PM EDT Emergency [facility] Emergency [address] [place] [address] Discharge Disposition: Home or Self Care 10/23/2024 Orders Only [facility] Emergency [address] [place] [address] Yun Melton PA-C 10/23/2024 Procedure Pass [facility], Ct Scan - [address] [address] from Last 3 Months Immunizations Immunization Administration Dates Next Due Hepatitis B Adult 09/20/2001 Influenza Trivalent MDCK Preservative Free IM MMR 09/21/2011 Tdap 10/04/2017,07/03/2011 Family History Relation Status Comments Mother overdose Social History Tobacco Use Types Packs/Day Years [...] 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 on file Not on f ile Last Filed Vital Signs Vital Sign Reading Time Taken Comments Blood Pressure 124/80 01/16/2025 9:47 AM EST Pulse 88 01/16/2025 9:47 AM EST Temperature 36.8 C (98.3 F) 10/23/2024 8:52 PM EDT Respiratory Rate 16 10/23/2024 8:52 PM EDT Oxygen Saturation 99% 01/16/2025 9:47 AM EST Inhaled Oxygen Concentration - - Weight 83.9 kg (185 lb) 01/16/2025 9:47 AM EST Height 165.1 cm (5' 5 ) 01/16/2025 9:47 AM EST Body Mass Index 30.79 01/16/2025 9:47 AM EST Plan of Treatment Upcoming Encounters Date Type Department Care Team (Latest Contact Info) Description 01/23/2025 Procedure Pass [facility] Endoscopy Admitting Dept Virtual Department [address] [place] [phone] 01/23/2025 9:00 AM EST Hospital Encounter [facility] Endoscopy Admitting Dept Virtual Department [address] [place] [address] Burke Larson MD [address] [place] [address] [email or web address] 01/23/2025 9:00 AM EST - 01/23/2025 9:30 AM EST Surgery [facility] Endoscopy Admitting Dept Virtual Department [address] [place] [address] Burke Larson MD [address] [place] [address] [email or web address] ESOPHAGOGASTRODUODENOSCOPY Scheduled Procedures Name Priority Associated Diagnoses Date/Ti me ESOPHAGOGASTRODUODENOSCOPY Diverticulosis large intestine w/o perforation or abscess w/bleeding Gastroesophageal reflux disease, unspecified whether esophagitis present Helicobacter pylori infection 01/23/2025 9:00 AM EST COLONOSCOPY Diverticulosis large intestine w/o perforation or abscess w/bleeding Gastroesophageal reflux disease, unspecified whether esophagitis present Helicobacter pylori infection 01/23/2025 9:00 AM EST COLONOSCOPY Diarrhea, unspecified type Health Maintenance Due Date Last Done Comments DEPRESSION SCREENING 1999 SMOKING Hx and SMOKELESS TOBACCO SCREENING 08/24/2000 HIV ONE-TIME SCREENING (18-6 5 YEARS) 08/24/2005 PAP SMEAR 08/24/2008 COVID-19 VACCINE (2024-2 6 season) 2024 SCREENING FOR DIABETES 10/24/2027 , 06/15/2022 Adult Td,Tdap Booster 12/19/2029 12/20/2019 , 10/04/2017, 07/03/2011 HEPATITIS C SCREENING Completed 06/15/2022 INFLUENZA VACCINE Completed 11/21/2024 HEPATITIS A VACCINES Aged Out No long [...] DOPPLER Routine 10/23/2024 6:52 PM EDT URINALYSIS WITH REFLEX TO URINE CULTURE STAT 10/23/2024 5:[address] ABDOMEN/PELVIS WITH CONTRAST Routine 10/23/2024 4:31 PM EDT LIPASE STAT 10/23/2024 3:48 PM EDT LFTS (HEPATIC PANEL) STAT 10/23/2024 3:48 PM EDT HCG, SERUM QUALITATIVE STAT 3:48 PM EDT BASIC METABOLIC PANEL (BMP) STAT 10/23/2024 3:48 PM EDT CBC AND DIFFERENTIAL STAT 10/23/2024 3:48 PM EDT from Last 3 Months Results * US [...] No significant free fluid. Procedure Note James Mohan, ES - 10/23/2024 US PELVIS TRANSABDOMINAL AND TRANSVAGINAL WITH DOPPLER Referring clinician's provided indication for this examination in Epic:Pain TECHNIQUE: Pelvic Ultrasound Transabdominal performed for global [...] Unremarkable pelvic ultrasound. No acute sonographic abnormality. us Yun Melton PA-C IMG US PELVIS Final Result * (ABNORMAL) Urinalysis w/reflex Urine Culture (10/23/2024 5:54 PM EDT) COLOR Yellow Yellow [facility] CLARITY Clear [facility] GLUCOSE Negative Negative [facility] BILI Negative Negative [facility] KETONES Negative Negative [facility] SPECIFIC GRAVITY 1.010 1.005 - 1.030 [facility] BLOOD Trace(A) Negative [facility] PH >9.0(H) 5.0 - 8.0 [facility] Protein-UA Negative Negative [facility] NITRITE Negative Negative [facility] Leukocyte esterase, ur Negative Negative [facility] Urine (Urine) 10/23/2024 5:5 4 PM EDT 10/23/2024 7:08 PM EDT Yun Melton PA-C LAB URINE ORDERA BLES Final Result [facility] [address] [place] [address] * CT ABDOMEN/PELVIS WITH CONTRAST (10/23/2024 4:31 [...] PM EDT) HCG, QUALITATIVE Negative Negative IU/L [facility] Blood 10/23/2024 3:48 PM EDT 10/23/2024 4:13 PM EDT us Abdulaziz Brooke MD LAB BLOOD BKR ORD ERABLES Final Result Performing Organization Address [facility]/ZIP Co de Phone Number [address] [address] * LFTs (hepatic panel) (10/23/2024 3:48 PM EDT) ALKALINE PHOSPHATASE 69 39 - 117 U/L [facility] TOTAL BILIRUBIN 0.3 0.0 - 1.2 mg/dL [facility] DIRECT BILIRUBIN 0.1 0.0 - 0.2 mg/dL [facility] Bilirubin (Indirect) NOT CALCULATED 0 - 1.5 mg/dL [facility] AST 13 0 - 37 U/L [facility] ALT 12 0 - 40 U/L [facility] TOTAL PROTEIN 7.1 6.5 - 8.0 g/dL [facility] ALBUMIN 4.3 3.9 - 4.8 g/dL [facility] GLOBULIN 2.8 1 - 4.8 g/dL [facility] A/G Ratio 1.54 1.00 - 4.80 RATIO [facility] Blood 10/23/2024 3:48 PM EDT 10/23/2024 4:13 PM EDT us Abdulaziz Brooke MD LAB BLOOD BKR ORD ERABLES Final Result Performing Organization Address [facility]/ZIP Co de Phone Number [address] [address] * (ABNORMAL) CBC and differential (10/23/2024 3:48 PM EDT) WBC 12.60(H) 4.00 - 11.00 K/uL [facility] RBC 4.88 4.00 - 5.20 M/uL [facility] HGB 12.1 12.0 - 16.0 g/dL [facility] HCT 37.3 36.0 - 46.0 % [facility] PLT 277 150 - 450 K/uL [facility] MCV 76.4(L) 80.0 - 100.0 fL [facility] MCH 24.8(L) 27.0 - 31.0 pg [facility] MCHC 32.4 32.0 - 36.0 g/dL [facility] RDW 15.9(H) 11.5 - 14.5 % [facility] MPV 11.4 8.4 - 12.0 fL [facility] NRBC 0.00 0.00 /100 WBCs [facility] ABSOLUTE NRBC 0.00 0.00 K/uL [facility] DIFF METHOD Auto [facility] NEUTS 63.3 48.0 - 76.0 % [facility] LYMPHS 28.2 18.0 - 41.0 % [facility] MONOS 6.4 4.0 - 11.0 % [facility] EOS 1.1 0.0 - 5.0 % [facility] BASOS 0.4 0.0 - 1.5 % [facility] Granulocytes, immature (%) 0.6 0.0 - 0.9 % [facility] ABSOLUTE NEUTS 7.98(H) 1.92 - 7.60 K/uL [facility] ABSOLUTE LYMPHS 3.55 0.72 - 4.10 K/uL [facility] ABSOLUTE MONOS 0.81 0.16 - 1.10 K/uL [facility] ABSOLUTE EOS 0.14 0.00 - 0.50 K/uL [facility] ABSOLUTE BASOS 0.05 0.00 - 0.15 K/uL [facility] Granulocytes, immature 0.07 0.00 - 0.09 K/uL [facility] Blood 10/23/2024 3:48 PM EDT 10/23/2024 4:13 PM EDT us Abdulaziz Brooke MD LAB BLOOD BKR ORD ERABLES Final Result [address] [address] * Lipase (10/23/2024 3:48 PM EDT) LIPASE 21 16 - 63 U/L [facility] Blood 10/23/2024 3:48 PM EDT 10/23/2024 4:13 PM EDT Abdulaziz Brooke MD LAB BLOOD BKR ORD ERABLES Final Result Performing Organization Address City/[facility]/ZIP Co de Phone Number [address] [address] * (ABNORMAL) Basic metabolic panel (10/23/2024 3:48 PM EDT) SODIUM 140 133 - 146 mmol/L [facility] CHLORIDE 105 96 - 108 mmol/L [facility] POTASSIUM 3.7 3.3 - 5.1 mmol/L [facility] CO2 22 21 - 35 mmol/L [facility] BUN 11 6 - 19 mg/dL [facility] CREATININE 0.70 0.5 - 1.5 mg/dL [facility] GLUCOSE 106(H) 70 - 99 mg/dL [facility] CALCIUM 9.1 8.4 - 10.3 mg/dL [facility] EGFR 114 >59 mL/min/1.7 3m2 [facility] Comment:Estimated glomerular filtration rate calculated using the CKD-EPI refit equation. ANION GAP 17 10 - 20 mmol/L [facility] Blood 10/23/2024 3:48 PM EDT 10/23/2024 4:13 PM EDT Abdulaziz Brooke MD LAB BLOOD BKR ORD ERABLES Final Result [address] [address] from Last 3 Months Insurance [facility] Care Teams Diet Tech Relationship Specialty Start Date End Date Alexei Musa PA [address] [place] [phone] [email or web address] PCP - General Physician Correspondence Coordinator 01/11/25 Pcp, Unknown 11/08/23 Additional Source Comments The information contained in this document represents components of the legal health record. It is not the complete legal health record.[facility]
--- OUTSIDE RECORDS SUMMARY | 2025-01-17 23:48 | XMS_ITS | Encounter Summary ---
Author Organization [facility] Address [address] [facility] [address] [place] [address] Phone Care Team Providers Care Medical Coder Name Role Phone [facility], Facility Primary Care Provider Pcp, Unknown Unavailable Unavailable Alexei Musa Primary Care Provider [phone]- [phone] Encounter Details Date Type Department Care Team (Late st Contact Info) Description 10/23/2024 Procedure Pass [facility], Ct Scan - [address] [address] Social History Tobacco Use Types Packs/Day Years [...] 3:25 PM EDT Esthela Colon RN * [place] Suicide Severity Rating Scale (Screener/Recent Self-Report) Question [...] Pass [facility] Endoscopy Admitting Dept Virtual Department [address] [place] [address] 01/23/2025 9:00 AM EST Hospital Encounter [facility] Endoscopy Admitting Dept Virtual Department [address] [place] [address] Burke Larson MD [address] [address] [email or web address] 01/23/2025 9:00 AM EST - 01/23/2025 9:30 AM EST Surgery [facility] Endoscopy Admitting Dept Virtual Department [address] [place] [address] Burke Larson MD [address] [place] [address] [email or web address] Scheduled Procedures Name Priority Associated Diagnoses Date/Ti ak ESOPHAGOGASTRODUODENOSCOPY Diverticulosis large intestine w/o perforation or [...] on filedocumented in this encounter Care Teams Medical Coder Relationship Specialty Start Date End Date [facility] [address] [place] [phone] PCP - General 11/08/23 01/10/25 Alexei Musa PA [address] [place] [address] [email or web address] PCP - General Physician Wood Furniture Assembler 01/11/25 Pcp, Unknown 11/08/23 documented as of this encounter Additional Source Comments The information contained in this document represents components of the legal health record. It is not the complete legal health record.[facility]
--- OUTSIDE RECORDS SUMMARY | 2025-01-17 23:49 | XMS_ITS | Encounter Summary ---
Author Organization [facility] Address [address] [place] [address] Phone Care Team Providers Care Services Coordinator Name Role Phone Pcp, Unknown Unavailable Unavailable Alexei Musa Primary Care Provider [phone] Encounter Details Date Type Department Care Team (Latest Contact Info) Description 01/16/2025 Orders Only [facility] [address] [place] [address] Burke Larson MD [address] [address] [email or web address] Diverticulosis large intestine w/o perforation or abscess w/bleeding (Primary Dx); Gastroesophageal reflux disease, unspecified whether esophagitis present; Diarrhea, unspecified type; Helicobacter pylori infection Social History Tobacco Use [...] your housing situation today? 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 Not on file Not on f ile documented as of this encounter Plan of Treatment Upcoming Encounters Date Type Department Care Team (Latest Contact Info) Description 01/23/2025 Procedure Pass [facility]oscopy Admitting Dept Virtual Department [address] [place] [address] 01/23/2025 9:00 AM EST Hospital Encounter [facility] Endoscopy Admitting Dept Virtual Department [address] [place] [address] Burke Larson MD [address] [address] [email or web address] 01/23/2025 9:00 AM EST - 01/23/2025 9:30 AM EST Surgery [facility]oscopy Admitting Dept [facility] Department [address] [place] [address] Burke Larson MD [address] [address] [email or web address] Scheduled Procedures Name Priority Associated [...] as of this encounter Visit Diagnoses Diagnosis Diverticulosis large intestine w/o perforation or abscess w/bleeding- Primary Gastroesophageal reflux disease, unspecified whether esophagitis present Diarrhea, unspecified type Helicobacter pylori infection Helicobacter pylori (H. pylori) Diverticulosis large intestine w/o perforation or abscess w/bleeding Gastroesophageal reflux disease, unspecified whether esophagitis present Helicobacter pylori infection Helicobacter pylori (H. pylori) documented in this encounter Care Teams Services Coordinator Relationship Specialty Start Date End Date Alexei Musa PA [address] [place] [phone] [email or web address] PCP - General Physician Music Theory Professor 01/11/25 Pcp, Unknown 11/08/23 documented as of this encounter Additional Source Comments The information contained in this document represents components of the legal health record. It is not the complete legal health record.[facility]
--- OUTSIDE RECORDS SUMMARY | 2025-01-17 23:49 | XMS_ITS | Clinical Summary ---
Author Organization [employer] Address [address] [facility] [address] [place] [address] Care Team Providers Care Manager Business Development Hospice Name Role Phone Unavailable Primary Care Provider [...] 08/24/2017 HPV/Cotest 08/24/2017 COVID-19 Vaccine (1 - 2024-2 6 season) 2024 Influenza Vaccine (#1) 2024 Zoster [...]
--- OUTSIDE RECORDS SUMMARY | 2025-01-17 23:49 | XMS_ITS | Data Portability ---
Author Organization [place] [facility] Address [address] [place] [id number] Assessment Encounter Date Assessment Date Assessment LastModified [...] worsening over a 3 week time frame [place]: neg rapid mono, pt denies any fatigue or missed work Strep: rapid strep A neg, Centor score of 1. 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 In order to obtain further [...] after care of this patient according to [facility]'s infection prevention protocols. [email or web address] Not available 08/14/2020 18:03:08 Plan of Treatment Reminders Order Date Submit Date Provider Last Modified By Organization Details Last Modified Time Details Appointments None recorded. Lab rapid strep group A, throat 2019 020 [email or web address] [facility], [address] [place], [address], 0 21:20:44 mononucle osis, heterophi le Ab, blood 2019 020 [employer] [facility], [address], [place], [address], 0 21:20:43 Referral None recorded. Procedures None recorded. Surgeries None recorded. Imaging None recorded. Medication Orders diclofena c 1 % topical gel 2020 021 JELANI [facility]1972, [address] [place], [address], 1 17:50:27 prednison e 10 mg tablet 2019 020 [email or web address] [facility], [address] [place], [address], 0 20:15:58 prednison e 20 mg tablet 2019 020 INTERFACE [facility], [address] [place], [address], 0 20:16:03 amoxicill in 875 mg tablet 2019 020 INTERFACE [facility], [address] [place] [address], [address], 0 21:20:48 Patient TargetsNo targets recorded. Patient Instructions Encounter Date Encounter Id Patient Instructions Last Modified By Organization Details Last Modified Time 02/18/2019 [id number] Please seek care immediately if you develop [...] in your condition between 8am-10pm, [facility] at [phone] to help navigate your care. vincent Not available 02/18/2019 21:21:06 02/23/2019 [id number] shoulder bursiti s: care instructions vincent Not available 02/23/2019 20:15:58 Thank you for yo ur visit with [facility] today. We cannot always find the [...] condition between 8am-10pm, please call [facility] at [phone] to help navigate your care. vincent Not available 02/23/2019 20:15:11 Reason for Referral None Reported. Results Created Date Observation Date Name Description Value Unit Range Abnormal Flag Note LastModifiedBy Organization Detail LastModifiedTime 02/18/19 20 02/18/2019 monon ucleo sis, heter ophil e Ab, blood [place] negati ve Not Available [facility] [address] [place], [address], 02/18/2019 21:05:40 02/18/19 20 02/18/2019 monon ucleo sis, heter ophil e Ab, blood Control Visual ized / Valid Not Available [facility] [address] [place], [address], 02/18/2019 21:05:40 02/18/19 20 02/18/2019 rapid strep group A, throa t Strep negati ve Not Available [facility] [address] [place], [address], 02/18/2019 21:00:36 02/18/19 20 02/18/2019 rapid strep group A, throa t Control Visual ized / Valid Not Available [facility] [address] [place], [address], 02/18/2019 21:00:36 Result Notes None recorded. Problems Name Problem SNOMED Code Status Onset Date Resolution Date Notes Provider Name and Address Organization Details Recorded Time Asthma 783545920 Active 020 YUDY MADISON, COMMUNITY M[employer] HE[employer] WORKER [address], [place], [address] , [place] [facility] 0 20:59:27 Problem Notes None recorded. Medical Equipment None Reported. Allergies Allergen ID Allergen Name Allergen Category Reaction Reaction Severity Criticality Documentation Date Start Date Code Code System Note Provider Name and Address Organization Details Recorded Time 43529 Dilaudid medicatio n Not available Not available Not available 02/18/2019 78755 3 RxNorm YUDY MADISON , COMM[employer] WORKER [address], [place], [address], [place] [facility] 0 20:58:39 70714 Reglan medicatio n Not available Not available Not available 02/18/2019 9230 RxNorm YUDY MADISON , [employer] WORKER [address], [place], [address], [place] [facility] 0 20:58:43 14336 Motrin medicatio n Not available Not available Not available 02/18/2019 60931 8 RxNorm YUDY MADISON , COMM[employer] HE[employer] WORKER [address], [place], [address], [place] [facility] 0 [...] Recorded Heart rate Body temperature Oxygen saturation Respiratory rate Systolic And Diastolic Provider Name and Address Organization Details Last Updated DateTime 0 80 /min 98.1 [degF] 98 % 16 /min 122/78 mm[Hg] Not Available [facility] 0 20:55:07 Date Recorded Respiratory rate Body temperature Heart rate Oxygen saturation Systolic And Diastolic Provider Name and Address Organization Details Last Updated DateTime 0 16 /min 98.6 [degF] 64 /min 99 % 116/64 mm[Hg] Not Available [facility] 0 20:08:02 Date Recorded Oxygen saturation Body temperature Respiratory rate Heart rate Systolic And Diastolic Provider Name and Address Organization Details Last Updated DateTime 1 99 % 97.9 [degF] 16 /min 92 /min 108/62 mm[Hg] Not Available [facility] 1 17:48:55 Social History Question Answer Notes LastModified by [employer] Details LastModified Time Tobacco Smoking Status Former Smoker YUDY MADISON, [place] [address] [place], [address], [place] [facility] 02/18/2019 20:59:52 Do You [...] Functional Status Question Answer Note LastModified by [employer]iz[employer] [place] [employer] Details LastModified Time Do you or have you ever used e-cigarettes or vape? Never used electronic cigarettes Information not available 02/18/2019 Mental Status None recorded. Family History Relationship Description Onset Age of this Age Resolved Age Notes LastModified by Organization Details LastModified Time Mother Hypertensive disorder [email or web address] Not available 02/18 20:59:48 Medical History Condition Response Diabetes N Coronary Artery Disease N High Cholesterol N Pulmonary Embolism N Cancer N Hypertension N Stroke N Asthma Y COPD N Depression N Kidney Disease N Gynecological HistoryNo gynecological history recorded. 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 [facility] [address] [place] [address] 02/18/2019 20:51:30 02/21/2019 20:24:13 Acute pharyngitis 946024864 J02.9 [id number] YDUY LOS COMM[employer]ENT[employer] HE[employer] WORKER [facility] [address] [place] [address] 02/23/2019 20:03:37 02/24/2019 12:38:15 Bursitis of left shoulder 7210978599 03172 M75.52 [id number] JAVIER GEORGE NP [facility] [address] [place] [address] 08/14/2020 17:48:19 08/16/2020 13:59:41 Strain of thoracic region 86671780 S29.019A Health Concerns Section Related Observation LastModified by Organization Detai ls LastModified Time None Recorded Concern Status LastModified by Organization Details LastModified Time None Recorded Advance Directives Directive N: Payers Insurance Date Sequence Insurance Name Policy Number Policy Alas Covered Member ID Alas Member ID Guarantor Name 02/18/2019 1 [place] Felecia Corral [id number] Felecia Corral 08/14/2020 2 [place] Felecia Corral [id number] Felecia Corral 08/14/2020 1 [place]MED[place]ACEMENT HMO) Felecia Corral [id number] Felecia Corral 02/18/2019 1 *SELF PAY* Felecia Corral [id number] Felecia Corral 02/18/2019 1 [place] Felecia Corral [id number] Felecia Corral 08/16/2020 1 [place] Felecia Corral [id number] Felecia Corral 08/16/2020 1 [facility] - COMMONHEALTH (MEDICAID HMO) [id number] Felecia Corral [id number] Felecia Corral 08/16/2020 1 [place] Felecia Corral [id number] Felecia Corral 08/16/2020 1 [facility] - COMMON[facility]ALTH (MEDICAID HMO) [id number] Felecia Corral [id number] Felecia Corral 08/16/2020 1 [facility] - COMMONHEALTH (MEDICAID HMO) [id number] Felecia Corral [id number] Felecia Corral Notes Date Note Type Note [...] baseline. YUDY MADISON NP [address], [place], [address], [place] [facility] 02/18/2019 23:27:47 0 text/html Pt reports left shoulder pain, reports it has been hurting for the last 3-4 days. Pt denies any specific injury. 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 Reports pain as 7-8/10 with movement, at rest there is no pain. Pt has been taking APAP without much relief of sx. Reports the pain as feeling sharp. Reports pain to the anterior shoulder, states that area is tender to touch as well. YUDY MADISON NP [address], [place], [address], [place] [facility] 02/23/2019 20:31:07 1 text/html This is a 34-year-old female that is known to [facility] [facility] but new to this provider. She has a medical history significant for asthma. She contacted [facility] today with complaints of pain [...] pylori and she was told by her crna to avoid NSAIDs altogether. JAVIER GEORGE, [place] [address] [place] [address] [address], [place], [address], [place] [facility] 08/14/2020 18:10:14 OBGyn Episode No OBEpisode recorded.
== END 2025-01-17 16:23 | disposition home or self-care (01) ==
LOC: HO.HUSH 15:17
PROVIDERS: PCP Family Medicine; Visit Provider Urology
DX: N20.0 Calculus of kidney (principal)
CPT/HCPCS: 99214

== ENCOUNTER → 2025-01-17 15:16 | Outpatient (BNVA) | payer MEDICAID, SELFPAY | PROVIDERS: PCP Family Medicine; Visit Provider Urology | DX: N20.0 Calculus of kidney (principal) | CPT/HCPCS: 99212 ==